=== PATIENT | female | born 1935 | race Caucasian/White ===

== ENCOUNTER → 2017-02-26 | Outpatient (CLI) | payer MEDICARE ==
--- NOTE | 2017-02-26 10:29 | CT ---
EXAMINATION TYPE: CT brain wo con DATE OF EXAM: 02/26/2017 10:00 AM HISTORY: TIA per order. Weakness and shakiness in voice. CT DLP: 1017.9 mGycm. Automated Exposure Control for Dose Reduction was Utilized. TECHNIQUE: CT scan of the head is performed without contrast. COMPARISON: None. FINDINGS: There is no acute intracranial hemorrhage or midline shift identified. There is diffuse v entricular and sulcal prominence consistent with diffuse age-related cerebral atrophy. There is low- attenuation in the periventricular white matter consistent with chronic small vessel ischemic change. Hyperostosis frontalis is present. There is some vascular calcification of distal internal carotid arteries bilaterally. The globes are intact and the visualized sinuses are clear. IMPRESSION: No acute intracranial hemorrhage or midline shift. There is mild to moderate diffuse ag e-related cerebral atrophy and chronic small vessel ischemic change noted.
== END | disposition home or self-care (01) ==
LOC: RADCTMAIN 09:29
PROVIDERS: ATTEND Family Medicine
DX: G31.9 Degenerative disease of nervous system, unspecified (principal); I67.82 Cerebral ischemia
CPT/HCPCS: 70450

== ENCOUNTER 2017-04-15 08:38 | Emergency (ER) | payer MEDICARE ==
[2017-04-15 09:01] VITALS: BP 161/70; TEMP 97.6
[2017-04-15] MEDS ORDERED: diphenhydrAMINE 25 MG CAP PO STA (09:11)
[2017-04-15] MEDS ORDERED: HYDROCORTISONE 1% CREAM 30 GM TUBE TOPICAL STA (09:11)
--- NOTE | 2017-04-15 09:19 | ED ---
General Adult HPI - General Chief complaint: Skin/Abscess/Foreign Body Stated complaint: bug bite Time Seen by Provider: 04/15/17 08:55 Source: patient, RN notes reviewed Mode of arrival: wheelchair Limitations: no limitations - History of Present Illness Initial comments: She is an 81-year-old female who presents emergency room today with a chief complaint of bug bite to the left foot. She states she felt something bite her and she did have some irritation to the top of the foot. States it is a little swollen. States it's a "throbbing" type pain. She denies any other complaints. States she did not take any medications for this. Patient denies any recent fever, chills, shortness of breath, chest pain, back pain, abdominal pain, nausea or vomiting, numbness or tingling, dysuria or hematuria, constipation or diarrhea, headaches or visual changes, or any other complaints. - Related Data Home Medications Medication Instructions Recorded Confirmed Losartan Potassium [Cozaar] 50 mg PO DAILY@1600 04/15/17 04/15/17 Lovastatin [Mevacor] 40 mg PO HS@2200 04/15/17 04/15/17 glipiZIDE [Glipizide] 10 mg PO DAILY@0800 04/15/17 04/15/17 metFORMIN HCL [Metformin HCl] 500 mg PO BID@1200,2000 04/15/17 04/15/17 Previous Rx's Medication Instructions Recorded Hydrocortisone Cream 1 applic TOPICAL TID #1 cream..g. 04/15/17 [Hydrocortisone 1% Cream] Allergies Allergy/AdvReac Type Severity Reaction Status Date / Time Sulfa (Sulfonamide Allergy Rash/Hives Verified 04/15/17 09:07 Antibiotics) Review of Systems ROS Statement: Those systems with pertinent positive or pertinent negative responses have been documented in the HPI. ROS Other: All systems not noted in ROS Statement are negative. Past Medical History Past Medical History: Diabetes Mellitus Additional Past Medical History / Comment(s): TB in 1955 History of Any Multi-Drug Resistant Organisms: None Reported Additional Past Surgical History / Comment(s): Lung Past Psychological History: No Psychological Hx Reported Smoking Status: Former smoker Past Alcohol Use History: Rare Past Drug Use History: None Reported General Exam - General Exam Comments Initial Comments: General: The patient is awake and alert, in no distress, and does not appear acutely ill. Eye: Pupils are equal, round and reactive to light, extra-ocular movements are intact. No nystagmus. There is normal conjunctiva bilaterally. No signs of icterus. Ears, nose, mouth and throat: There are moist mucous membranes and no oral lesions. Neck: The neck is supple, there is no tenderness or JVD. Cardiovascular: There is a regular rate and rhythm. No murmur, rub or gallop is appreciated. Respiratory: Lungs are clear to auscultation, respirations are non-labored, breath sounds are equal. No wheezes, stridor, rales, or rhonchi. Musculoskeletal: Normal ROM, no tenderness. Strength 5/5. Sensation intact. Pulses equal bilaterally 2+. Neurological: A&O x 3. CN II-XII intact, There are no obvious motor or sensory deficits. Coordination appears grossly intact. Speech is normal. Skin: He does have some mild redness irritation to the top of the right foot there is no lymphogenic streaking. Psychiatric: Cooperative, appropriate mood & affect, normal judgment. Limitations: no limitations Course Vital Signs 04/15/17 04/15/17 08:45 09:00 Temperature 97.2 F L 97.6 F Pulse Rate 88 85 Respiratory 16 16 Rate Blood Pressure 148/65 161/70 O2 Sat by Pulse 96 97 Oximetry Medical Decision Making - Medical Decision Making Patient given Benadryl and cortisone cream here in emergency room. Sign symptoms of concern and return were discussed with the patient. Advised continue Benadryl hydrocortisone cream at home. Advised return for any increase or worsening symptoms. Disposition Clinical Impression: Insect bite Disposition: HOME SELF-CARE Condition: Good Instructions: Insect Bite or Sting (ED) Additional Instructions: Please continue use topical steroid 3 times daily to the area along with Benadryl one to 2 tabs to 6 hours as discussed. Please return to emergency room there is increased redness or pain. Return for any other concerns. Prescriptions: Hydrocortisone Cream [Hydrocortisone 1% Cream] 1 applic TOPICAL TID #1 cream..g. Referrals: Ja Stevenson DO [Primary Care Provider] - 1-2 days Time of Disposition: 09:17
[2017-04-15 09:31] VITALS: PULSE 86; RESP 18
== END 2017-04-15 09:31 | disposition home or self-care (01) ==
LOC: EC 08:38
DX: S90.861A Insect bite (nonvenomous), right foot, initial encounter (principal); E11.9 Type 2 diabetes mellitus without complications; Z87.891 Personal history of nicotine dependence; Z79.84 Long term (current) use of oral hypoglycemic drugs; Z79.899 Other long term (current) drug therapy; Z88.2 Allergy status to sulfonamides; W57.XXXA Bitten or stung by nonvenomous insect and other nonvenomous arthropods, initial encounter
CPT/HCPCS: 99281

== ENCOUNTER 2021-05-01 11:28 | Inpatient (IN) | payer MEDICARE ==
[2021-05-01] MEDS ORDERED: SODIUM CHLORIDE 0.9% 1,000 ML IV STA ×2 (11:58→14:58)
[2021-05-01] MEDS ORDERED: ACETAMINOPHEN TAB 325 MG TAB PO STA (11:59)
--- NOTE | 2021-05-01 12:04 | ED ---
General Adult HPI - General Chief complaint: Fall Stated complaint: hyperglycemia Time Seen by Provider: 05/01/21 11:32 Source: patient, EMS, RN notes reviewed Mode of arrival: EMS - History of Present Illness Initial comments: 85-year-old female with a past medical history as diabetes mellitus presents to the emergency room for chief complaint of fall. Patient states that she had diarrhea for the past week or so and has been very weak. Patient reports that she had diarrhea today while in bed and got up to use the shower. Getting out of the shower patient slipped and fell and was stuck between the toilet and the shower. She could not get up and was there for approximately 3 hours. Family tried to call her and get a hold of her and were unable to do so. EMS was [facility] and they helped patient up. They did find her glucose to be in the 400s which is unusual for patient. Patient's only complaint is mild bilateral hip pain from "scooting" across the floor. She reports she was able to stand on her hips momentarily but she is very weak overall. She is not insulin- dependent.Patient has no other complaints at this time including shortness of breath, chest pain, abdominal pain, nausea or vomiting, headache, or visual changes. - Related Data Home Medications Medication Instructions Recorded Confirmed glipiZIDE [Glipizide] 10 mg PO DAILY@0800 04/15/17 05/01/21 Acetaminophen Tab [Tylenol Tab] 500 mg PO Q6H 05/01/21 05/01/21 Aspirin EC [Ecotrin Low Dose] 81 mg PO DAILY PRN 05/01/21 05/01/21 Losartan Potassium [Cozaar] 25 mg PO DAILY 05/01/21 05/01/21 Lovastatin [Mevacor] 20 mg PO HS 05/01/21 05/01/21 Memantine [Namenda] 10 mg PO BID 05/01/21 05/01/21 metFORMIN HCL ER [Glucophage Xr] 500 mg PO DAILY 05/01/21 05/01/21 Allergies Allergy/AdvReac Type Severity Reaction Status Date / Time Sulfa (Sulfonamide Allergy Rash/Hives Verified 05/01/21 14:44 Antibiotics) Review of Systems ROS Statement: Those systems with pertinent positive or pertinent negative responses have been documented in the HPI. ROS Other: All systems not noted in ROS Statement are negative. Past Medical History Past Medical History: Diabetes Mellitus Additional Past Medical History / Comment(s): TB in 1955 History of Any Multi-Drug Resistant Organisms: None Reported Additional Past Surgical History / Comment(s): Lung Past Psychological History: No Psychological Hx Reported Smoking Status: Former smoker Past Alcohol Use History: None Reported, Rare Past Drug Use History: None Reported General Exam General appearance: alert, in no apparent distress Head exam: Present: atraumatic, normocephalic, normal inspection Eye exam: Present: normal appearance, PERRL, EOMI. Absent: scleral icterus, conjunctival injection, periorbital swelling ENT exam: Present: normal exam, mucous membranes moist Neck exam: Present: normal inspection, full ROM. Absent: tenderness Respiratory exam: Present: normal lung sounds bilaterally. Absent: respiratory distress, wheezes, rales, rhonchi, stridor Cardiovascular Exam: Present: regular rate, normal rhythm, normal heart sounds. Absent: systolic murmur, diastolic murmur, rubs, gallop, clicks GI/Abdominal exam: Present: soft, normal bowel sounds. Absent: distended, tenderness, guarding, rebound, rigid Extremities exam: Present: full ROM, normal capillary refill (Capillary refill less than 2 seconds, DP pulses 2+ bilaterally) Neurological exam: Present: alert Course Vital Signs 05/01/21 05/01/21 05/01/21 11:37 12:52 14:34 Temperature 98.4 F Pulse Rate 112 H 106 H 112 H Respiratory 18 18 18 Rate Blood Pressure 128/78 111/56 94/47 O2 Sat by Pulse 95 95 96 Oximetry EKG Findings - EKG Comments: EKG Findings:: Sinus tachycardia, ventricular rate 113, CO int 154, QTc 455 Medical Decision Making - Medical Decision Making pt presents with sinus tachycardia. She did have a run of atrial fibrillation however we were unable to capture this on EKG. Patient does not have a history of this. She denies blood thinner usage. CBC was obtained which did show white count of 15. Lactic acid is normal. Patient does have acute kidney injury and an elevated creatine kinase. Troponin also elevated. Chest x-ray did show a large area of consolidation, CAT scan was recommended to rule out contusion versus consolidation. CT chest abdomen and pelvis reveals a large air of airspace consolidation left lower lobe however no traumatic injury. Sepsis confirmed at 1418. Patient was given IV antibiotics in 3 hours. She was given 30 mL/kg bolus based on her ideal body weight of 59 kg. patient received [address] and was given 1500 here in the emergency room. Blood cultures pending. Patient given IV antibiotics. Pulmonology consulted. Cardiology will be consulted given elevated troponin and brief episode of atrial fibrillation. She was not heparinized given recent trauma. I did speak Heather [employer] of Dr. Stevenson in the office at 3 PM. She recommended I talk with Hugh Gallardo for admission but then speak with [facility] as they will be covering at 4 PM. I was unable to get ahold of Obie but did talk with Dr. Malone and he is aware of admission. He is aware admission will be under Dr. Stevenson's name and he will see patient. - Lab Data Result diagrams: 05/01/21 12:18 05/01/21 12:18 Lab Results 05/01/21 05/01/21 05/01/21 Range/Units 12:13 12:18 12:18 WBC 15.3 H (3.8-10.6) k/uL RBC 3.44 L (3.80-5.40) m/uL Hgb 10.9 L (11.4-16.0) gm/dL Hct 32.8 L (34.0-46.0) % MCV 95.6 (80.0-100.0) fL MCH 31.8 (25.0-35.0) pg MCHC 33.2 (31.0-37.0) g/dL RDW 13.1 (11.5-15.5) % Plt Count 180 (150-450) k/uL MPV 8.8 Neutrophils % 90 % Lymphocytes % 4 % Monocytes % 4 % Eosinophils % 0 % Basophils % 0 % Neutrophils # 13.9 H (1.3-7.7) k/uL Lymphocytes # 0.7 L (1.0-4.8) k/uL Monocytes # 0.7 (0-1.0) k/uL Eosinophils # 0.0 (0-0.7) k/uL Basophils # 0.0 (0-0.2) k/uL PT 10.6 (9.0-12.0) sec INR 1.0 (<1.2) APTT 22.4 (22.0-30.0) sec Sodium (137-145) mmol/L Potassium (3.5-5.1) mmol/L Chloride (98-107) mmol/L Carbon Dioxide (22-30) mmol/L Anion Gap mmol/L BUN (7-17) mg/dL Creatinine (0.52-1.04) mg/dL Est GFR (CKD-EPI)AfAm (>60 ml/min/1.73 sqM) Est GFR (CKD-EPI)NonAf (>60 ml/min/1.73 sqM) Glucose (74-99) mg/dL POC Glucose (mg/dL) 334 H (75-99) mg/dL POC Glu Psychiatry Physician ID Giuliana Felix Plasma Lactic Acid Ronny (0.7-2.0) mmol/L Calcium (8.4-10.2) mg/dL Magnesium (1.6-2.3) mg/dL Total Bilirubin (0.2-1.3) mg/dL AST (14-36) U/L ALT (4-34) U/L Alkaline Phosphatase (38-126) U/L Creatine Kinase (30-135) U/L Troponin I (0.000-0.034) ng/mL Total Protein (6.3-8.2) g/dL Albumin (3.5-5.0) g/dL Urine Color Urine Appearance (Clear) Urine pH (5.0-8.0) Ur Specific Townsend (1.001-1.035) Urine Protein (Negative) Urine Glucose (UA) (Negative) Urine Ketones (Negative) Urine Blood (Negative) Urine Nitrite (Negative) Urine Bilirubin (Negative) Urine Urobilinogen (<2.0) mg/dL Ur Leukocyte Esterase (Negative) Urine RBC (0-5) /hpf Urine WBC (0-5) /hpf Ur Squamous Epith Cells (0-4) /hpf Amorphous Sediment (None) /hpf Blood Type Recheck Bld Type Recheck Status Spec Expiration Date 05/01/21 05/01/21 05/01/21 Range/Units 12:18 12:18 12:18 WBC (3.8-10.6) k/uL RBC (3.80-5.40) m/uL Hgb (11.4-16.0) gm/dL Hct (34.0-46.0) % MCV (80.0-100.0) fL MCH (25.0-35.0) pg MCHC (31.0-37.0) g/dL RDW (11.5-15.5) % Plt Count (150-450) k/uL MPV Neutrophils % % Lymphocytes % % Monocytes % % Eosinophils % % Basophils % % Neutrophils # (1.3-7.7) k/uL Lymphocytes # (1.0-4.8) k/uL Monocytes # (0-1.0) k/uL Eosinophils # (0-0.7) k/uL Basophils # (0-0.2) k/uL PT (9.0-12.0) sec INR (<1.2) APTT (22.0-30.0) sec Sodium 137 (137-145) mmol/L Potassium 4.1 (3.5-5.1) mmol/L Chloride 104 (98-107) mmol/L Carbon Dioxide 18 L (22-30) mmol/L Anion Gap 15 mmol/L BUN 60 H (7-17) mg/dL Creatinine 2.37 H (0.52-1.04) mg/dL Est GFR (CKD-EPI)AfAm 21 (>60 ml/min/1.73 sqM) Est GFR (CKD-EPI)NonAf 18 (>60 ml/min/1.73 sqM) Glucose 352 H (74-99) mg/dL POC Glucose (mg/dL) (75-99) mg/dL POC Glu Psychiatry Physician ID Plasma Lactic Acid Ronny 1.8 (0.7-2.0) mmol/L Calcium 8.8 (8.4-10.2) mg/dL Magnesium 1.7 (1.6-2.3) mg/dL Total Bilirubin 0.6 (0.2-1.3) mg/dL AST 65 H (14-36) U/L ALT 28 (4-34) U/L Alkaline Phosphatase 86 (38-126) U/L Creatine Kinase 3081 H* (30-135) U/L Troponin I 0.225 H* (0.000-0.034) ng/mL Total Protein 5.6 L (6.3-8.2) g/dL Albumin 3.2 L (3.5-5.0) g/dL Urine Color Urine Appearance (Clear) Urine pH (5.0-8.0) Ur Specific [place]send (1.001-1.035) Urine Protein (Negative) Urine Glucose (UA) (Negative) Urine Ketones (Negative) Urine Blood (Negative) Urine Nitrite (Negative) Urine Bilirubin (Negative) Urine Urobilinogen (<2.0) mg/dL Ur Leukocyte Esterase (Negative) Urine RBC (0-5) /hpf Urine WBC (0-5) /hpf Ur Squamous Epith Cells (0-4) /hpf Amorphous Sediment (None) /hpf Blood Type Recheck Bld Type Recheck Status Spec Expiration Date 05/01/21 05/01/21 Range/Units 14:40 14:40 WBC (3.8-10.6) k/uL RBC (3.80-5.40) m/uL Hgb (11.4-16.0) gm/dL Hct (34.0-46.0) % MCV (80.0-100.0) fL MCH (25.0-35.0) pg MCHC (31.0-37.0) g/dL RDW (11.5-15.5) % Plt Count (150-450) k/uL MPV Neutrophils % % Lymphocytes % % Monocytes % % Eosinophils % % Basophils % % Neutrophils # (1.3-7.7) k/uL Lymphocytes # (1.0-4.8) k/uL Monocytes # (0-1.0) k/uL Eosinophils # (0-0.7) k/uL Basophils # (0-0.2) k/uL PT (9.0-12.0) sec INR (<1.2) APTT (22.0-30.0) sec Sodium (137-145) mmol/L Potassium (3.5-5.1) mmol/L Chloride (98-107) mmol/L Carbon Dioxide (22-30) mmol/L Anion Gap mmol/L BUN (7-17) mg/dL Creatinine (0.52-1.04) mg/dL Est GFR (CKD-EPI)AfAm (>60 ml/min/1.73 sqM) Est GFR (CKD-EPI)NonAf (>60 ml/min/1.73 sqM) Glucose (74-99) mg/dL POC Glucose (mg/dL) (75-99) mg/dL POC Glu Psychiatry Physician ID Plasma Lactic Acid Ronny (0.7-2.0) mmol/L Calcium (8.4-10.2) mg/dL Magnesium (1.6-2.3) mg/dL Total Bilirubin (0.2-1.3) mg/dL AST (14-36) U/L ALT (4-34) U/L Alkaline Phosphatase (38-126) U/L Creatine Kinase (30-135) U/L Troponin I (0.000-0.034) ng/mL Total Protein (6.3-8.2) g/dL Albumin (3.5-5.0) g/dL Urine Color Yellow Urine Appearance Turbid H (Clear) Urine pH 5.0 (5.0-8.0) Ur Specific [place]send 1.019 (1.001-1.035) Urine Protein 1+ H (Negative) Urine Glucose (UA) Trace H (Negative) Urine Ketones Negative (Negative) Urine Blood Small H (Negative) Urine Nitrite Negative (Negative) Urine Bilirubin 1+ H (Negative) Urine Urobilinogen <2.0 (<2.0) mg/dL Ur Leukocyte Esterase Negative (Negative) Urine RBC 2 (0-5) /hpf Urine WBC 3 (0-5) /hpf Ur Squamous Epith Cells <1 (0-4) /hpf Amorphous Sediment Moderate H (None) /hpf Blood Type Recheck No Previous Record Bld Type Recheck Status CABO Indicated Spec Expiration Date 05/04/20212339 Disposition Clinical Impression: Pneumonia, Elevated troponin, Fall, Weakness, Elevated creatine kinase, Hy perglycemia, JOSÉ LUIS (acute kidney injury), Leukocytosis Disposition: ADMITTED IP TO THIS HOSP Is patient prescribed a controlled substance at d/c from ED?: No Time of Disposition: 15:02
[2021-05-01 12:14] LABS: Glucose,Whole Blood 334 mg/dL (75-99)
[2021-05-01 12:38] LABS: Basophils % (A) 0 %; Eosinophils % (A) 0 %; HCT 32.8 % (34.0-46.0); HGB 10.9 gm/dL (11.4-16.0); Lymphocytes # (A) 0.7 k/uL (1.0-4.8); Lymphocytes % (A) 4 %; MCH 31.8 pg (25.0-35.0); MCHC 33.2 g/dL (31.0-37.0); MCV 95.6 fL (80.0-100.0); Mean Platelet Volume 8.8; Monocytes # (A) 0.7 k/uL (0-1.0); Monocytes % (A) 4 %; Neutrophils # (A) 13.9 k/uL (1.3-7.7); Neutrophils % (A) 90 %; Platelet Count 180 k/uL (150-450); RBC 3.44 m/uL (3.80-5.40); RDW 13.1 % (11.5-15.5); WBC 15.3 k/uL (3.8-10.6)
--- NOTE | 2021-05-01 12:42 | CT ---
EXAMINATION TYPE: CT brain mg marshall DATE OF EXAM: 05/01/2021 COMPARISON: 02/26/2017 HISTORY: Fall, pinned between shower and toilet for [address] DLP: 1443.[address] of the brain was performed. The ventricles, basal cisterns and sulci overlying the cerebral convexities demonstrate mild enlargem ent. There is no evidence for intracranial hemorrhage or sulcal effacement. There is decreased attenuatio n about the periventricular white matter and deep white matter of both cerebral hemispheres, compatib le with chronic small vessel ischemia. No mass effects are seen. If symptoms persist consider MRI. Osseous calvarium is intact. IMPRESSION: 1. Age related atrophic and chronic small vessel ischemic change without acute intracranial process seen at this time. CT Cervical Spine: Unenhanced CT of the cervical spine was performed with bone and soft tissue window settings submitted . Coronal and sagittal reconstruction is obtained. There is normal alignment and prevertebral soft tissues. No evidence for acute cervical fracture . Scattered degenerative disc disease and spondylosis. Biapical scarring. IMPRESSION: 1. No evidence for acute fracture or subluxation of the cervical spine.
[2021-05-01 12:46] LABS: Partial Thromboplastin Time 22.4 sec (22.0-30.0); Prothrombin Time 10.6 sec (9.0-12.0)
[2021-05-01 12:54] LABS: Albumin 3.2 g/dL (3.5-5.0); Potassium 4.1 mmol/L (3.5-5.1); Total Protein 5.6 g/dL (6.3-8.2)
[2021-05-01 12:55] LABS: Calcium 8.8 mg/dL (8.4-10.2); Magnesium 1.7 mg/dL (1.6-2.3); Total Bilirubin 0.6 mg/dL (0.2-1.3)
--- NOTE | 2021-05-01 13:20 | XR ---
EXAMINATION TYPE: XR chest 2V DATE OF EXAM: 05/01/2021 COMPARISON: NONE TECHNIQUE: PA and lateral views submitted. HISTORY: Pain FINDINGS: Large area of consolidation involving the left lung. Annular calcification small pleural effusion. Ar thropathy of the shoulders greater on the left. No sizable pneumothorax. Hypertrophic and degenerativ e change of the spine. Atherosclerotic change aorta. IMPRESSION: 1. Diffuse left-sided areas of infiltrate in the setting of trauma could be on the basis of pulmonary contusion correlate to exclude pneumonia or asymmetric edema. Consider CT scan chest.
--- NOTE | 2021-05-01 13:24 | XR ---
EXAMINATION TYPE: XR pelvis AP view DATE OF EXAM: 05/01/2021 CLINICAL HISTORY: 85-year-old female with fall TECHNIQUE: A single AP view of the pelvis is obtained. COMPARISON: None. FINDINGS: No fracture of the pelvis on this single view. There are significant degenerative changes o f the left hip with joint space narrowing and subchondral sclerosis suggestive of moderate to severe osteoporosis. Moderate right hip osteoarthritis. Degenerative changes of the lower lumbar spine. Dege nerative narrowing of the pubic symphysis. IMPRESSION: 1. No evidence of fracture or dislocation of the pelvis on this single view. Degenerative changes of the bilateral hips, left greater than right.
--- NOTE | 2021-05-01 14:25 | CT ---
EXAMINATION TYPE: CT ChestAbdPelvis wo con DATE OF EXAM: 05/01/2021 COMPARISON: None HISTORY: Fall, pinned between shower and toilet for [address] DLP: 1162.[address] of the chest abdomen and pelvis was performed. The lack of contrast limits evaluation o f the solid and hollow abdominal viscera. Chest: LUNGS: There is no evidence for pneumothorax. Large area of left lower lobe consolidation. Correlate for pneumonia and/or aspiration. No pleural effusion MEDIASTINUM: Thoracic aorta is of normal caliber without CT evidence to suggest traumatic induced ao rtic injury. No mediastinal fluid or blood. No pericardial fluid or cardia abnormality. HILAR STRUCTURES: No evidence for mass. No hilar adenopathy is appreciated. OTHER: No significant abnormality. OSSEOUS: No displaced osseous fractures identified. CT ABDOMEN AND PELVIS FINDINGS: LIVER/GB: No focal laceration, contusion or subcapsular hemorrhage. No calcified gallstones. No s pace occupying hepatic lesion. Biliary tree is of normal caliber. PANCREAS: No evidence for transection. No inflammation. No distinct mass. SPLEEN: No focal laceration, contusion or subcapsular hemorrhage. ADRENALS: No hemorrhage. No nodule. No thickening. KIDNEYS/BLADDER: No focal laceration, contusion or subcapsular hemorrhage. No hydronephrosis. No n ephrolithiasis. No disctinct renal mass. BOWEL: Bowel is intact. No evidence for pneumoperitoneum. GENITAL ORGANS: No gross abnormality. LYMPH NODES: No greater than 1cm abdominal or pelvic lymph nodes areappreciated. AORTA: No traumatic aortic injury visualized. OSSEOUS STRUCTURES: No displaced fracture seen. OTHER: No evidence for hemoperitoneum. IMPRESSION: 1. No evidence for traumatic injury to the chest. 2. No evidence for traumatic injury to the abdomen or pelvis. 3. Large area of airspace consolidation left lower lobe.
[2021-05-01 15:04] LABS: Amorphous Sediment,Urine Moderate /hpf; Appearance,Urine Turbid (Clear); Bilirubin,Urine 1+ (Negative); Blood,Urine Small (Negative); Color,Urine Yellow; Glucose,Urine (UA) Trace (Negative); Ketones,Urine Negative (Negative); Leukocyte Esterase,Urine Negative (Negative); Nitrite,Urine Negative (Negative); Protein,Urine 1+ (Negative); RBC,Urine 2 /hpf (0-5); Specific Gravity,Urine 1.019 (1.001-1.035); Squamous Epithelial Cell,Urine <1 /hpf (0-4); Urobilinogen,Urine <2.0 mg/dL (<2.0); WBC,Urine 3 /hpf (0-5)
[2021-05-01] MEDS ORDERED: PIPERACILLIN-TAZOBACTAM 3.375 GM in SODIUM CHLORIDE 0.9% 100 ML IVPB STA (15:04)
[2021-05-01] MEDS ORDERED: AZITHROMYCIN 500 MG in SODIUM CHLORIDE 0.9% 250 ML IVPB STA (15:04)
[2021-05-01] MEDS ORDERED: PNEUMONIA PROTOCOL UTILIZED 1 EACH MISC PO PRN (15:04)
[2021-05-01] MEDS: SODIUM CHLORIDE 0.9% 1,000 ML IV SCH ×2 (15:30→22:42)
[2021-05-01 16:40] LABS: Glucose,Whole Blood 343 mg/dL (75-99)
[2021-05-01] MEDS: INSULIN ASPART (NovoLOG) 100 UNIT/ML VIAL SQ SCH ×2 (17:41→21:03)
[2021-05-01] MEDS ORDERED: FUROSEMIDE 10 MG/ML 4 ML VIAL ONE (19:21)
[2021-05-01 20:25] LABS: Glucose,Whole Blood 315 mg/dL (75-99)
[2021-05-01] MEDS ORDERED: ALPRAZolam 0.25 MG TAB PO STA (21:10)
[2021-05-01] MEDS ORDERED: ASPIRIN 81 MG PO PRN (23:15)
--- NOTE | 2021-05-01 23:52 | P.HPIM ---
History of Present Illness H&P Date: 05/01/21 Chief Complaint: Fall Patient is a 85-year-old female with a known history of diabetes type 2, mild cognitive impairment was brought to the hospital by EMS. Patient states that she had a fall at her home' She woke up in the morning and went to the shower. While getting out of the shower she and fell and struck in between the toilet and shower. She laid the for about couple hours. Finally she was able to call her family, who called EMS and was brought to the hospital. Patient was found to have blood sugar in 400s which is unusual for her. She has been having gener alized weakness. Patient also states that she did have diarrhea for the past week 1-2 episodes. Patient lives by herself at home. No complaints of chest pain or shortness of breath. No nausea vomiting abdominal pain or diarrhea. No headache or dizziness lightheadedness. No fever no chills. Denies any recent illnesses. On admission patient was tachycardic with heart rate 112, blood pressure 128/78 pulse ox 98% on room air and patient has been afebrile. CT head and cervical spine showed age-related atrophic and chronic small vessel ischemic changes without any acute intracranial process. CT of the cervical spine showed no evidence of acute fracture or subluxation of the cervical spine. Pelvic x-ray showed no evidence of fracture. Degenerative changes of the bilateral hips left greater than right. Chest x-ray showed diffuse left-sided areas of infiltrate in the setting of trauma could be on the basis of pulmonary contusion correlate to exclude pneumonia asymmetric edema. CT of the abdomen pelvis and chest showed large area of airspace consolidation left lower lobe. EKG showed sinus tachycardia with occasional PVCs. Laboratory data showed WBC 15.3, hemoglobin 10.9 and platelets 180 sodium 137 potassium 4.1 BUN 16 creatinine 2.37 blood sugar is 352 CK 3081 and troponin 0 0.225 and urinalysis is negative for infection. Review of Systems Constitutional: Patient denies any fever or chills . generalized weakness . Abdomen: Patient denied nausea vomiting, abdominal pain.+ diarhhea Cardiovascular: Patient denies any chest pain or short of breath no palpitations. Respiratory: patient denied any cough or sputum production. No shortness of breath Neurologic: Patient denied any numbness or tingling headache. Musculoskeletal: Patient denies any complaints of joint swelling or deformity. Skin: Negative Psychiatric: Negative Endocrine: No heat or cold intolerance. No recent weight gain. Genitourinary: No dysuria or hematuria. All other 14 point ROS negative except the above Past Medical History Past Medical History: Diabetes Mellitus Additional Past Medical History / Comment(s): TB in 1955 History of Any Multi-Drug Resistant Organisms: None Reported Past Surgical History: Hysterectomy Additional Past Surgical History / Comment(s): Lung Past Anesthesia/Blood Transfusion Reactions: No Reported Reaction Past Psychological History: No Psychological Hx Reported Smoking Status: Former smoker Past Alcohol Use History: None Reported, Rare Past Drug Use History: None Reported Medications and Allergies Home Medications Medication Instructions Recorded Confirmed Type glipiZIDE [Glipizide] 10 mg PO DAILY@0800 04/15/17 05/01/21 History Acetaminophen Tab [Tylenol Tab] 500 mg PO Q6H 05/01/21 05/01/21 History Aspirin EC [Ecotrin Low Dose] 81 mg PO DAILY PRN 05/01/21 05/01/21 History Losartan Potassium [Cozaar] 25 mg PO DAILY 05/01/21 05/01/21 History Lovastatin [Mevacor] 20 mg PO HS 05/01/21 05/01/21 History Memantine [Namenda] 10 mg PO BID 05/01/21 05/01/21 History metFORMIN HCL ER [Glucophage Xr] 500 mg PO DAILY 05/01/21 05/01/21 History Allergies Allergy/AdvReac Type Severity Reaction Status Date / Time Sulfa (Sulfonamide Allergy Rash/Hives Verified 05/01/21 14:44 Antibiotics) Physical Exam Vitals: Vital Signs Temp Pulse Pulse Resp BP BP Pulse Ox 05/01/21 18:21 98 95 05/01/21 18:06 98 F 84 16 110/52 05/01/21 15:31 102 H 18 103/44 97 05/01/21 14:34 112 H 18 94/47 96 05/01/21 12:52 106 H 18 111/56 95 05/01/21 11:37 98.4 F 112 H 18 128/78 95 Intake and Output 05/01/21 05/01/21 05/01/21 06:59 14:59 22:59 Intake Total 500 240 Balance 500 240 Intake: IV 500 Invasive Line 1 500 Oral 240 Other: # Voids 0 Weight 90.718 kg 90.718 kg PHYSICAL EXAMINATION: Patient is lying in the bed comfortably, no acute distress, awake alert and oriented.. HEENT: Normocephalic. Neck is supple. Pupils reactive. Nostrils clear. Oral cavity is moist. Neck reveals no JVD, carotid bruits, or thyromegaly. CHEST EXAMINATION: Trachea is central. Symmetrical expansion. Bibasilar diminished sounds. No wheezing or rhonchi.. CARDIAC: Normal S1, S2 with no gallops. No murmurs ABDOMEN: Soft. Bowel sounds normal. No organomegaly. No abdominal bruits. Extremities: reveal no edema. No clubbing or cyanosis Neurologically awake, alert, oriented x3 with well-coordinated movements. No focal deficits noted Skin: No rash or skin lesions. Psychiatric: Coperative. Nonsuicidal Musculoskeletal: No joint swelling or deformity. Normal range of motion. Results CBC & Chem 7: 05/01/21 12:18 05/01/21 12:18 Labs: Abnormal Lab Results - Last 24 Hours (Table) 05/01/21 05/01/21 05/01/21 Range/Units 12:13 12:18 12:18 WBC 15.3 H (3.8-10.6) k/uL RBC 3.44 L (3.80-5.40) m/uL Hgb 10.9 L (11.4-16.0) gm/dL Hct 32.8 L (34.0-46.0) % Neutrophils # 13.9 H (1.3-7.7) k/uL Lymphocytes # 0.7 L (1.0-4.8) k/uL Carbon Dioxide 18 L (22-30) mmol/L BUN 60 H (7-17) mg/dL Creatinine 2.37 H (0.52-1.04) mg/dL Glucose 352 H (74-99) mg/dL POC Glucose (mg/dL) 334 H (75-99) mg/dL AST 65 H (14-36) U/L Creatine Kinase 3081 H* (30-135) U/L Troponin I (0.000-0.034) ng/mL Total Protein 5.6 L (6.3-8.2) g/dL Albumin 3.2 L (3.5-5.0) g/dL Urine Appearance (Clear) Urine Protein (Negative) Urine Glucose (UA) (Negative) Urine Blood (Negative) Urine Bilirubin (Negative) Amorphous Sediment (None) /hpf 05/01/21 05/01/21 05/01/21 Range/Units 12:18 14:40 16:08 WBC (3.8-10.6) k/uL RBC (3.80-5.40) m/uL Hgb (11.4-16.0) gm/dL Hct (34.0-46.0) % Neutrophils # (1.3-7.7) k/uL Lymphocytes # (1.0-4.8) k/uL Carbon Dioxide (22-30) mmol/L BUN (7-17) mg/dL Creatinine (0.52-1.04) mg/dL Glucose (74-99) mg/dL POC Glucose (mg/dL) (75-99) mg/dL AST (14-36) U/L Creatine Kinase (30-135) U/L Troponin I 0.225 H* 0.188 H* (0.000-0.034) ng/mL Total Protein (6.3-8.2) g/dL Albumin (3.5-5.0) g/dL Urine Appearance Turbid H (Clear) Urine Protein 1+ H (Negative) Urine Glucose (UA) Trace H (Negative) Urine Blood Small H (Negative) Urine Bilirubin 1+ H (Negative) Amorphous Sediment Moderate H (None) /hpf 05/01/21 05/01/21 05/01/21 Range/Units 16:38 18:50 20:24 WBC (3.8-10.6) k/uL RBC (3.80-5.40) m/uL Hgb (11.4-16.0) gm/dL Hct (34.0-46.0) % Neutrophils # (1.3-7.7) k/uL Lymphocytes # (1.0-4.8) k/uL Carbon Dioxide (22-30) mmol/L BUN (7-17) mg/dL Creatinine (0.52-1.04) mg/dL Glucose (74-99) mg/dL POC Glucose (mg/dL) 343 H 315 H (75-99) mg/dL AST (14-36) U/L Creatine Kinase (30-135) U/L Troponin I 0.132 H* (0.000-0.034) ng/mL Total Protein (6.3-8.2) g/dL Albumin (3.5-5.0) g/dL Urine Appearance (Clear) Urine Protein (Negative) Urine Glucose (UA) (Negative) Urine Blood (Negative) Urine Bilirubin (Negative) Amorphous Sediment (None) /hpf Thrombosis Risk Factor Assmnt - DVT/VTE Prophylaxis DVT/VTE Prophylaxis: Pharmacologic Prophylaxis ordered - Choose All That Apply Any of the Below Risk Factors Present?: Yes Each Factor Represents 1 point: Serious lung disease incl. pneumonia (< 1month) Other Risk Factors: Yes Each Risk Factor Represents 3 Points: Age 75 years or older Thrombosis Risk Factor Assessment Total Risk Factor Score: 4 Thrombosis Risk Factor Assessment Level: Moderate Risk Assessment and Plan Assessment: Status post mechanical fall. Patient slipped while coming out of the shower. Left lower lobe pneumonia. Possible aspiration. Sepsis secondary above Elevated troponin level. Possible type II AL.. Hyperglycemia with uncontrolled diabetes type 2. 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 Continue with insulin scale and start Levemir 15 units at bedtime and check A1c level. Cardiology and pulmonary was consulted. Continue to follow closely. Prognosis is guarded. Will consult PT OT. Time with Patient: Greater than 30
[2021-05-02] MEDS: ATORVASTATIN 10 MG TAB PO SCH ×2 (00:05→20:42)
[2021-05-02] MEDS: INSULIN DETEMIR (LEVEMIR) 100 UNIT/ML SYR SQ SCH ×2 (00:05→20:41)
[2021-05-02] MEDS: HEPARIN SODIUM,PORCINE/PF 5,000 UNIT/0.5 ML SYRINGE SQ SCH ×4 (00:05→23:10)
[2021-05-02] MEDS: PIPERACILLIN-TAZOBACTAM 3.375 GM in SODIUM CHLORIDE 0.9% 100 ML IVPB SCH ×2 (00:06→19:37)
[2021-05-02 06:20] LABS: Glucose,Whole Blood 185 mg/dL (75-99)
[2021-05-02] MEDS: SODIUM CHLORIDE 0.9% 1,000 ML IV SCH (06:30)
[2021-05-02] MEDS: INSULIN ASPART (NovoLOG) 100 UNIT/ML VIAL SQ SCH ×4 (06:32→20:41)
[2021-05-02 07:46] LABS: Basophils % (A) 0 %; Eosinophils % (A) 0 %; HCT 31.9 % (34.0-46.0); HGB 10.2 gm/dL (11.4-16.0); Hypochromasia Slight; Lymphocytes # (A) 0.7 k/uL (1.0-4.8); Lymphocytes % (A) 5 %; MCH 30.7 pg (25.0-35.0); Mean Platelet Volume 9.3; Monocytes # (A) 0.6 k/uL (0-1.0); Monocytes % (A) 4 %; Neutrophils # (A) 14.5 k/uL (1.3-7.7); Neutrophils % (A) 91 %; Platelet Count 177 k/uL (150-450); RBC 3.32 m/uL (3.80-5.40); RDW 13.1 % (11.5-15.5); WBC 15.9 k/uL (3.8-10.6)
[2021-05-02 07:53] LABS: Calcium 8.4 mg/dL (8.4-10.2); Potassium 4.2 mmol/L (3.5-5.1)
[2021-05-02] MEDS ORDERED: MEMANTINE 10 MG TAB PO SCH (09:00)
[2021-05-02 09:01] LABS: T4, Free (Free Thyroxine) 1.71 ng/dL (0.78-2.19)
[2021-05-02] MEDS: LOSARTAN 25 MG TAB PO SCH (09:06)
[2021-05-02] MEDS ORDERED: FUROSEMIDE 20 MG TAB PO STA (10:36)
--- NOTE | 2021-05-02 11:03 | P.CNPUL ---
History of Present Illness Consult date: 05/02/21 Requesting physician: Ja Stevenson Reason for consult: dyspnea, cough, hypoxemia, pneumonia, abnormal CXR/CT Chief complaint: Cough, shortness of breath, pneumonia. History of present illness: Pulmonary consult dated 05/02/2021. 85-year-old female, with a past medical history of diabetes mellitus, and hypertension, as well as hyperlipidemia, and memory impairment, who presents to the emergency department via EMS, apparently having fallen. The patient also apparently has had diarrhea for the past week or so. She's been very weak. Apparently getting out of the shower, she said felt stuck stuck between the toilet in the shower. She apparently could not get out for about 3 hours. EMS arrived at home and were able to get the patient up. Apparently her sugars are quite high. She apparently had bilateral hip pain. Today in the room, the patient complains of cough shortness of breath and difficulty breathing. She didn't mention anything about the fall in the bathroom. She denies any chest pain or pressure. She is a bit confused. She was not in any respiratory distress. Her 4 L saturation was 99%. Her temperature is 97.8, heart rate was 77, respiratory rate 20, and blood pressure 121/62. Laboratory data includes a white count 15.9, hemoglobin 10.2, hematocrit 31.9, and a normal platelet count. Sodium 138, potassium 4.2, chlorides 108, CO2 18, anion gap 12, BUN 73, and creatinine 2. CK was 1190. Troponin was 0.132. Chest x-ray showed an extensive left-sided pneumonia. Review of Systems REVIEW OF SYSTEMS: CONSTITUTIONAL: Weakness. NEUROLOGIC: [ Negative.] HEENT: [ Negative.] CARDIAC: [Negative.] PULMONARY: Shortness of breath, cough, chest congestion. GI: Diarrhea. : [Negative.] RHEUMATOLOGIC: [ Negative.] IMMUNOLOGIC: [ Negative.] ENDOCRINE: [Negative. ] DERMATOLOGIC: [Negative.] Past Medical History Past Medical History: Diabetes Mellitus Additional Past Medical History / Comment(s): TB in 1955 History of Any Multi-Drug Resistant Organisms: None Reported Past Surgical History: Hysterectomy Additional Past Surgical History / Comment(s): Lung Past Anesthesia/Blood Transfusion Reactions: No Reported Reaction Past Psychological History: No Psychological Hx Reported Smoking Status: Former smoker Past Alcohol Use History: None Reported, Rare Past Drug Use History: None Reported Medications and Allergies Home Medications Medication Instructions Recorded Confirmed Type glipiZIDE [Glipizide] 10 mg PO DAILY@0800 04/15/17 05/01/21 History Acetaminophen Tab [Tylenol Tab] 500 mg PO Q6H 05/01/21 05/01/21 History Aspirin EC [Ecotrin Low Dose] 81 mg PO DAILY PRN 05/01/21 05/01/21 History Losartan Potassium [Cozaar] 25 mg PO DAILY 05/01/21 05/01/21 History Lovastatin [Mevacor] 20 mg PO HS 05/01/21 05/01/21 History Memantine [Namenda] 10 mg PO BID 05/01/21 05/01/21 History metFORMIN HCL ER [Glucophage Xr] 500 mg PO DAILY 05/01/21 05/01/21 History Allergies Allergy/AdvReac Type Severity Reaction Status Date / Time Sulfa (Sulfonamide Allergy Rash/Hives Verified 05/01/21 14:44 Antibiotics) Physical Exam Osteopathic Statement: *. No significant issues noted on an osteopathic structural exam other than those noted in the History and Physical/Consult. Vitals: Vital Signs Temp Pulse Pulse Resp BP BP Pulse Ox 05/02/21 09:11 99 05/02/21 09:05 97.8 F 77 20 89/59 98 05/02/21 04:00 98.4 F 110 H 20 121/62 95 05/02/21 02:00 20 05/02/21 00:00 98.1 F 107 H 20 117/54 95 05/01/21 20:00 98.0 F 105 H 30 H 104/55 94 L 05/01/21 18:21 98 95 05/01/21 18:06 98 F 84 16 110/52 05/01/21 15:31 102 H 18 103/44 97 05/01/21 14:34 112 H 18 94/47 96 05/01/21 12:52 106 H 18 111/56 95 05/01/21 11:37 98.4 F 112 H 18 128/78 95 Intake and Output 05/01/21 05/02/21 05/02/21 22:59 06:59 14:59 Intake Total 250 240 Output Total 400 800 Balance -150 -800 240 Intake: IV 10 Invasive Line 1 10 Oral 240 240 Output: Urine 400 800 Uretheral (Harding) 400 Other: Voiding Method Indwelling Catheter Indwelling Catheter # Voids 1 Weight 90.718 kg 90.3 kg No acute distress, a bit confused. Nasal O2 at 3 L is noted. HEENT examination is grossly unremarkable. Neck supple. Full range of motion. No adenopathy thyromegaly or neck vein distention. Cardiovascular examination reveals regular rhythm rate. S1-S2 normal. No S3 or S4. No discernible murmur noted. Heart sounds are distant. Heart rate 77 bpm. Lungs mild bilateral scattered rhonchi. No wheezes or crackles. Breath sounds equal. Abdomen soft bowel sounds are heard. No masses or tenderness. Extremities are intact. No cyanosis clubbing or edema. Skin is without rash or lesion. Neurologic examination is brief but nonfocal. Results - Laboratory Findings CBC and BMP: 05/02/21 06:52 05/02/21 06:52 PT/INR, D-dimer PT 10.6 sec (9.0-12.0) 05/01/21 12:18 INR 1.0 (<1.2) 05/01/21 12:18 Abnormal lab findings: Abnormal Labs 05/01/21 05/01/21 05/01/21 12:13 12:18 12:18 WBC 15.3 H RBC 3.44 L Hgb 10.9 L Hct 32.8 L Neutrophils # 13.9 H Lymphocytes # 0.7 L Chloride Carbon Dioxide 18 L BUN 60 H Creatinine 2.37 H Glucose 352 H POC Glucose (mg/dL) 334 H AST 65 H Creatine Kinase 3081 H* Troponin I Total Protein 5.6 L Albumin 3.2 L TSH Urine Appearance Urine Protein Urine Glucose (UA) Urine Blood Urine Bilirubin Amorphous Sediment 05/01/21 05/01/21 05/01/21 12:18 14:40 16:08 WBC RBC Hgb Hct Neutrophils # Lymphocytes # Chloride Carbon Dioxide BUN Creatinine Glucose POC Glucose (mg/dL) AST Creatine Kinase Troponin I 0.225 H* 0.188 H* Total Protein Albumin TSH Urine Appearance Turbid H Urine Protein 1+ H Urine Glucose (UA) Trace H Urine Blood Small H Urine Bilirubin 1+ H Amorphous Sediment Moderate H 05/01/21 05/01/21 05/01/21 16:38 18:50 20:24 WBC RBC Hgb Hct Neutrophils # Lymphocytes # Chloride Carbon Dioxide BUN Creatinine Glucose POC Glucose (mg/dL) 343 H 315 H AST Creatine Kinase Troponin I 0.132 H* Total Protein Albumin TSH Urine Appearance Urine Protein Urine Glucose (UA) Urine Blood Urine Bilirubin Amorphous Sediment 05/02/21 05/02/21 05/02/21 06:18 06:52 06:52 WBC 15.9 H RBC 3.32 L Hgb 10.2 L Hct 31.9 L Neutrophils # 14.5 H Lymphocytes # 0.7 L Chloride 108 H Carbon Dioxide 18 L BUN 73 H Creatinine 2.00 H Glucose 178 H POC Glucose (mg/dL) 185 H AST Creatine Kinase 1190 H* Troponin I Total Protein Albumin TSH 0.179 L Urine Appearance Urine Protein Urine Glucose (UA) Urine Blood Urine Bilirubin Amorphous Sediment - Diagnostic Findings Chest x-ray: image reviewed CT scan - chest: image reviewed Assessment and Plan Assessment: Community-acquired pneumonia, left lung. Status post fall. Weakness, secondary to diarrhea. History of diabetes mellitus. History of hypertension. History of hyperlipidemia. History of dementia/memory impairment. 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 Plan: Plan dated 05/02/2021. The patient is placed on Rocephin and Zithromax. She's currently on O2. We will continue to follow make recommendations were appropriate. The patient's on 3-4 L nasal cannula. Saturations are 99%. The patient is not manifesting any signs or symptoms of respiratory distress, conversational dyspnea, audible wheezing, or use of accessory muscles. Prognosis is guarded. Time with Patient: Greater than 30
[2021-05-02 11:36] LABS: Glucose,Whole Blood 186 mg/dL (75-99)
--- NOTE | 2021-05-02 12:32 | P.CRDCN ---
History of Present Illness Consult date: 05/02/21 Reason for Consult (text): Elevated troponins History of present illness: The patient is a 85-year-old female who follows in the office with Dr. Grande. We were consulted after the patient experienced a fall getting out of her shower. She states she was not dizzy or lightheaded, however she just slipped on the wet floor. She was down for approximately 2-3 hours before the patient could call for help. Her blood sugar was noted to be in the 400s by EMS. EKG on arrival showed sinus tachycardia with PACs. Troponins mildly elevated. Brittany vated CK and creatinine. She was given a 2 L bolus in the emergency room, however it was discontinued after 1-1/2 L for pulmonary distress. According to nursing staff she was giving IV Lasix at that time. The patient was interviewed and examined sitting up in bed. Mildly labored. She reports some mild shortness of breath and states she has not been up ambulating throughout the room. No chest pain or chest pressure. No edema. DIAGNOSTICS: EKG shows sinus tachycardia with occasional PVCs Chest x-ray shows diffuse left-sided infiltrate; pulmonary contusion versus pneumonia or asymmetrical edema CT of the chest, abdomen, and pelvis shows no evidence for traumatic injury to the chest abdomen or pelvis. Large air space consolidation in left lower lobe. Pneumonia versus aspiration. Laboratory data: WBC 15.9, hemoglobin 10.2, hematocrit 31.9, platelet 177, sodium 138, potassium 4.2, BUN 73, creatinine 2.0, CK 1190, TSH 0.179, troponin 0.132 Vital signs: Blood pressure 89/59, SpO2 98% on 4 L nasal cannula, pulse rate 77, temperature 97.8F. Telemetry shows sinus rhythm with PVCs. PAST MEDICAL HISTORY: Diabetes mellitus, hypertension, dementia REVIEW OF SYSTEMS: No fever or chills. No cough or expectoration. No diaphoresis. Patient denies headache, dizziness, blurred vision, double vision. Patient denies any stomach discomfort. No nausea, vomiting. No hematochezia. No hematemesis. Denies any black stools or blood in his stools. Denies dysuria or hematuria. Positive for muscle weakness. Mild shortness of breath. No chest pain or chest pressure. The palpitations PHYSICAL EXAMINATION: This is a 85-year-old female. Mildly labored at the time of examination. HEENT: Head is atraumatic, normocephalic. Pupils are equal, round. Sclerae anicteric. Conjunctivae are clear. Mucous membranes of the mouth are moist. Neck is supple. There is no jugular venous distention. No carotid bruit is heard. CHEST EXAMINATION: Lungs diminished on the left. No chest wall tenderness is noted on palpation or with deep breathing. HEART EXAMINATION: Heart regular rate and rhythm. S1, S2 heard. Soft systolic murmur. No gallops or rub. ABDOMEN: Soft, nontender. Bowel sounds are heard. No organomegaly noted. EXTREMITIES: 2+ peripheral pulses with no evidence of peripheral edema and no calf tenderness noted. NEUROLOGIC EXAMINATION: Patient is awake, alert and oriented x3. FINAL ASSESSMENT AND PLAN: Mechanical fall, no presyncope Elevated troponins, secondary to fall Elevated CK Leukocytosis, secondary to pneumonia Community-acquired pneumonia, pulmonology following Diabetes mellitus, hyperglycemic on arrival Acute kidney injury, secondary to fall Shortness of breath, fluid overload versus pneumonia Dementia PLAN: Obtain recent echocardiogram from the office Start furosemide 20 mg by mouth to avoid hypotension Hold losartan for systolic pressures less than 100/60 Further recommendations based upon clinical course The patient has been seen and evaluated. Plan of care has been reviewed and agreed upon by Dr Shepherd. Past Medical History Past Medical History: Diabetes Mellitus Additional Past Medical History / Comment(s): TB in 195 History of Any Multi-Drug Resistant Organisms: None Reported Past Surgical History: Hysterectomy Additional Past Surgical History / Comment(s): Lung Past Anesthesia/Blood Transfusion Reactions: No Reported Reaction Past Psychological History: No Psychological Hx Reported Smoking Status: Former smoker Past Alcohol Use History: None Reported, Rare Past Drug Use History: None Reported Medications and Allergies Home Medications Medication Instructions Recorded Confirmed Type glipiZIDE [Glipizide] 10 mg PO DAILY@0800 16/17 05/01/21 History Acetaminophen Tab [Tylenol Tab] 500 mg PO Q6H 05/01/21 05/01/21 History Aspirin EC [Ecotrin Low Dose] 81 mg PO DAILY PRN 05/01/21 05/01/21 History Losartan Potassium [Cozaar] 25 mg PO DAILY 05/01/21 05/01/21 History Lovastatin [Mevacor] 20 mg PO HS 05/01/21 05/01/21 History Memantine [Namenda] 10 mg PO BID 05/01/21 05/01/21 History metFORMIN HCL ER [Glucophage Xr] 500 mg PO DAILY 05/01/21 05/01/21 History Allergies Allergy/AdvReac Type Severity Reaction Status Date / Time Sulfa (Sulfonamide Allergy Rash/Hives Verified 05/01/21 14:44 Antibiotics) Physical Exam Vitals: Vital Signs Temp Pulse Pulse Resp BP BP Pulse Ox 05/02/21 11:41 73 18 98/61 100 05/02/21 09:11 99 05/02/21 09:05 97.8 F 77 20 89/59 98 05/02/21 04:00 98.4 F 110 H 20 121/62 95 05/02/21 02:00 20 05/02/21 00:00 98.1 F 107 H 20 117/54 95 05/01/21 20:00 98.0 F 105 H 30 H 104/55 94 L 05/01/21 18:21 98 95 05/01/21 18:06 98 F 84 16 110/52 05/01/21 15:31 102 H 18 103/44 97 05/01/21 14:34 112 H 18 94/47 96 05/01/21 12:52 106 H 18 111/56 95 Intake and Output 05/01/21 05/02/21 05/02/21 22:59 06:59 14:59 Intake Total 250 240 Output Total 400 800 Balance -150 -800 240 Intake: IV 10 Invasive Line 1 10 Oral 240 240 Output: Urine 400 800 Uretheral (Harding) 400 Other: Voiding Method Indwelling Catheter Indwelling Catheter Indwelling Catheter # Voids 1 Weight 90.718 kg 90.3 kg Results 05/02/21 06:52 05/02/21 06:52 Cardiac Enzymes 05/01/21 05/01/21 05/01/21 Range/Units 12:18 12:18 16:08 AST 65 H (14-36) U/L Troponin I 0.225 H* 0.188 H* (0.000-0.034) ng/mL 05/01/21 Range/Units 18:50 AST (14-36) U/L Troponin I 0.132 H* (0.000-0.034) ng/mL Coagulation 05/01/21 Range/Units 12:18 PT 10.6 (9.0-12.0) sec APTT 22.4 (22.0-30.0) sec CBC 05/01/21 05/02/21 Range/Units 12:18 06:52 WBC 15.3 H 15.9 H (3.8-10.6) k/uL RBC 3.44 L 3.32 L (3.80-5.40) m/uL Hgb 10.9 L 10.2 L (11.4-16.0) gm/dL Hct 32.8 L 31.9 L (34.0-46.0) % Plt Count 180 177 (150-450) k/uL Comprehensive Metabolic Panel 05/01/21 05/02/21 Range/Units 12:18 06:52 Sodium 137 138 (137-145) mmol/L Potassium 4.1 4.2 (3.5-5.1) mmol/L Chloride 104 108 H (98-107) mmol/L Carbon Dioxide 18 L 18 L (22-30) mmol/L BUN 60 H 73 H (7-17) mg/dL Creatinine 2.37 H 2.00 H (0.52-1.04) mg/dL Glucose 352 H 178 H (74-99) mg/dL Calcium 8.8 8.4 (8.4-10.2) mg/dL AST 65 H (14-36) U/L ALT 28 (4-34) U/L Alkaline Phosphatase 86 (38-126) U/L Total Protein 5.6 L (6.3-8.2) g/dL Albumin 3.2 L (3.5-5.0) g/dL Current Medications Generic Name Dose Route Start Last Admin Trade Name Freq PRN Reason Stop Dose Admin Aspirin 81 mg 05/01/21 23:15 Aspirin 81 Mg PO DAILY PRN Pain Atorvastatin Calcium 10 mg 05/01/21 23:15 05/02/21 00:05 Atorvastatin 10 Mg Tab PO 10 mg HS ALTHEA Administration Heparin Sodium (Porcine) 5,000 unit 05/02/21 00:00 05/02/21 09:06 Heparin Sodium,Porcine/Pf 5,000 Unit/0.5 Ml Syringe SQ 5,000 unit Q8HR ALTHEA Administration Azithromycin 500 mg/ Sodium 250 mls @ 250 mls/hr 05/02/21 15:00 Chloride IVPB DAILY@1500 ALTHEA Ceftriaxone Sodium 1 gm/ 50 mls @ 100 mls/hr 05/02/21 09:00 05/02/21 09:06 Sodium Chloride IVPB 100 mls/hr Q24HR ALTHEA Administration Insulin Aspart 0 unit 05/01/21 17:30 05/02/21 06:32 Insulin Aspart (Novolog) 100 Unit/Ml Vial SQ 2 unit ACHS ALTHEA Administration Protocol Insulin Detemir 15 unit 05/01/21 23:30 05/02/21 00:05 Insulin Detemir (Levemir) 100 Unit/Ml Syr SQ 15 unit HS ALTHEA Administration Losartan Potassium 25 mg 05/02/21 09:00 05/02/21 09:06 Losartan 25 Mg Tab PO Not Given DAILY ALTHEA Memantine 10 mg 05/02/21 09:00 05/02/21 09:07 Memantine 10 Mg Tab PO 10 mg BID ALTHEA Administration Miscellaneous Information 1 each 05/01/21 15:04 Pneumonia Protocol Utilized 1 Each Misc PO ONCE PRN Per Protocol Intake and Output 05/01/21 05/02/21 05/02/21 22:59 06:59 14:59 Intake Total 250 240 Output Total 400 800 Balance -150 -800 240 Intake: IV 10 Invasive Line 1 10 Oral 240 240 Output: Urine 400 800 Uretheral (Harding) 400 Other: Voiding Method Indwelling Catheter Indwelling Catheter Indwelling Catheter # Voids 1 Weight 90.718 kg 90.3 kg 05/02/21 06:52 05/02/21 06:52
--- NOTE | 2021-05-02 14:00 | XR ---
EXAMINATION TYPE: XR chest 1V portable DATE OF EXAM: 05/02/2021 COMPARISON: 05/01/2021 HISTORY: Pneumonia TECHNIQUE: Single frontal view of the chest is obtained. FINDINGS: Patchy airspace disease in the left lung again demonstrated with slight improvement in the left lower lobe. Mild pulmonary edema greater on the left. No pneumothorax or pleural effusion. Cardiomediastinal silhouette within normal. Atherosclerotic calcification seen in the intrathoracic a altagracia. Generalized osteopenia with no acute osseous abnormality. IMPRESSION: Multifocal left-sided pneumonia with some improvement in the left lower lobe and mild pu lmonary edema greater on the left.
[2021-05-02 14:17] LABS: Hemoglobin A1C 7.2 % (4.0-6.0)
[2021-05-02] MEDS ORDERED: AZITHROMYCIN 500 MG in SODIUM CHLORIDE 0.9% 250 ML IVPB SCH (15:00)
[2021-05-02] MEDS ORDERED: ONDANSETRON 4 MG/2 ML VIAL IVP PRN (15:00)
[2021-05-02] MEDS: AZITHROMYCIN 500 MG TAB PO SCH (16:16)
[2021-05-02 16:43] LABS: Glucose,Whole Blood 152 mg/dL (75-99)
[2021-05-02 20:21] LABS: Glucose,Whole Blood 231 mg/dL (75-99)
[2021-05-02] MEDS: MEMANTINE 5 MG TAB PO SCH (20:42)
[2021-05-02] MEDS: FAMOTIDINE 20 MG TAB PO SCH (20:42)
[2021-05-03 06:05] LABS: Glucose,Whole Blood 159 mg/dL (75-99)
[2021-05-03] MEDS: INSULIN ASPART (NovoLOG) 100 UNIT/ML VIAL SQ SCH ×4 (06:16→19:59)
[2021-05-03 08:34] LABS: Basophils % (A) 0 %; Eosinophils # (A) 0.1 k/uL (0-0.7); Eosinophils % (A) 0 %; HCT 32.1 % (34.0-46.0); HGB 10.4 gm/dL (11.4-16.0); Hypochromasia Slight; Lymphocytes # (A) 1.1 k/uL (1.0-4.8); Lymphocytes % (A) 7 %; MCHC 32.4 g/dL (31.0-37.0); MCV 95.8 fL (80.0-100.0); Mean Platelet Volume 8.9; Monocytes # (A) 0.5 k/uL (0-1.0); Monocytes % (A) 3 %; Neutrophils # (A) 14.5 k/uL (1.3-7.7); Neutrophils % (A) 90 %; Platelet Count 191 k/uL (150-450); RBC 3.35 m/uL (3.80-5.40); RDW 13.3 % (11.5-15.5); WBC 16.3 k/uL (3.8-10.6)
[2021-05-03 08:57] LABS: Calcium 8.7 mg/dL (8.4-10.2); Potassium 3.9 mmol/L (3.5-5.1)
[2021-05-03] MEDS ORDERED: DEXTROSE 5% IN WATER 250 ML with AMIODARONE 300 MG IV ONE (09:00)
[2021-05-03] MEDS: HEPARIN SODIUM,PORCINE/PF 5,000 UNIT/0.5 ML SYRINGE SQ SCH ×3 (09:19→23:27)
[2021-05-03] MEDS: MEMANTINE 5 MG TAB PO SCH ×2 (09:19→19:59)
[2021-05-03] MEDS: LOSARTAN 25 MG TAB PO SCH (09:19)
--- NOTE | 2021-05-03 10:21 | P.PN ---
Subjective Progress Note Date: 05/02/21 Principal diagnosis: Left lower lobe pneumonia Sepsis secondary to above Elevated troponin level Patient is a 85-year-old female with a known history of diabetes type 2, mild cognitive impairment was brought to the hospital by EMS. Patient states that she had a fall at her home' She woke up in the morning and went to the shower. While getting out of the shower she and fell and struck in between the toilet and shower. She laid the for about couple hours. Finally she was able to call her family, who called EMS and was brought to the hospital. Patient was found to have blood sugar in 400s which is unusual for her. She has been having generalized weakness. Patient also states that she did have diarrhea for the past week 1-2 episodes. Patient lives by herself at home. No complaints of chest pain or shortness of breath. No nausea vomiting abdominal pain or diarrhea. No headache or dizziness lightheadedness. No fever no chills. Denies any recent illnesses. On admission patient was tachycardic with heart rate 112, blood pressure 128/78 pulse ox 98% on room air and patient has been afebrile. CT head and cervical spine showed age-related atrophic and chronic small vessel ischemic changes without any acute intracranial process. CT of the cervical spine showed no evidence of acute fracture or subluxation of the cervical spine. Pelvic x-ray showed no evidence of fracture. Degenerative changes of the bilateral hips left greater than right. Chest x-ray showed diffuse left-sided areas of infiltrate in the setting of trauma could be on the basis of pulmonary contusion correlate to exclude pneumonia asymmetric edema. CT of the abdomen pelvis and chest showed large area of airspace consolidation left lower lobe. EKG showed sinus tachycardia with occasional PVCs. Laboratory data showed WBC 15.3, hemoglobin 10.9 and platelets 180 sodium 137 potassium 4.1 BUN 16 creatinine 2.37 blood sugar is 352 CK 3081 and troponin 0 0.225 and urinalysis is negative for infection. 05/02/2021 Patient is currently resting in the bed comfortably. Overnight rapid response team was called due to shortness of breath. IV fluids were discontinued for possible fluid load. Patient was complaining of Nausea and was given a dose of Zofran and started on Pepcid. Otherwise patient is being continued on antibiotics the form of azithromycin and Zosyn was changed to ceftriaxone for committing or pneumonia. Patient was seen by cardiology. 2-D echocardiogram was ordered and was started on low-dose Lasix. Laboratory data showed WBC trending down to 15.9, hemoglobin 10.2 and platelets 177, TSH 0.179 and free T4 level is 0.71. BUN 70. Creatinine 2.0. Patient is tolerating oral diet. CPK level is trending down. IV fluids on hold. Patient has been afebrile. No abdominal pain or diarrhea. Cardiology and pulmonary is on board. Current medications reviewed. Objective - Vital Signs Vital signs: Vital Signs Temp 97.8 F 05/02/21 09:05 Pulse 54 L 05/02/21 12:48 Resp 18 05/02/21 12:48 BP 115/73 05/02/21 12:48 Pulse Ox 95 05/02/21 12:48 Intake & Output 05/01/21 05/02/21 05/02/21 18:59 06:59 18:59 Intake Total 740 10 480 Output Total 1200 175 Balance 740 -1190 305 Weight 90.718 kg 90.3 kg Intake: IV 500 10 Invasive Line 1 500 10 Oral 240 480 Output: Urine 1200 175 Uretheral (Harding) 400 Other: Voiding Method Indwelling Catheter Indwelling Catheter # Voids 0 1 - Exam PHYSICAL EXAMINATION: Patient is lying in the bed comfortably, no acute distress, awake alert and oriented.. HEENT: Normocephalic. Neck is supple. Pupils reactive. Nostrils clear. Oral cavity is moist. Neck reveals no JVD, carotid bruits, or thyromegaly. CHEST EXAMINATION: Trachea is central. Symmetrical expansion. Bibasilar diminished sounds. No wheezing or rhonchi.. CARDIAC: Normal S1, S2 with no gallops. No murmurs ABDOMEN: Soft. Bowel sounds normal. No organomegaly. No abdominal bruits. Extremities: reveal no edema. No clubbing or cyanosis Neurologically awake, alert, oriented x3 with well-coordinated movements. No focal deficits noted Skin: No rash or skin lesions. Psychiatric: Coperative. Nonsuicidal Musculoskeletal: No joint swelling or deformity. Normal range of motion. - Labs CBC & Chem 7: 05/03/21 08:20 05/03/21 08:20 Labs: Abnormal Lab Results - Last 24 Hours (Table) 0705/01/21 05/01/21 Range/Units 14:40 16:08 16:38 WBC (3.8-10.6) k/uL RBC (3.80-5.40) m/uL Hgb (11.4-16.0) gm/dL Hct (34.0-46.0) % Neutrophils # (1.3-7.7) k/uL Lymphocytes # (1.0-4.8) k/uL Chloride (98-107) mmol/L Carbon Dioxide (22-30) mmol/L BUN (7-17) mg/dL Creatinine (0.52-1.04) mg/dL Glucose (74-99) mg/dL POC Glucose (mg/dL) 343 H (75-99) mg/dL Hemoglobin A1c (4.0-6.0) % Creatine Kinase (30-135) U/L Troponin I 0.188 H* (0.000-0.034) ng/mL TSH (0.465-4.680) mIU/L Urine Appearance Turbid H (Clear) Urine Protein 1+ H (Negative) Urine Glucose (UA) Trace H (Negative) Urine Blood Small H (Negative) Urine Bilirubin 1+ H (Negative) Amorphous Sediment Moderate H (None) /hpf 05/01/21 05/01/21 05/02/21 Range/Units 18:50 20:24 06:18 WBC (3.8-10.6) k/uL RBC (3.80-5.40) m/uL Hgb (11.4-16.0) gm/dL Hct (34.0-46.0) % Neutrophils # (1.3-7.7) k/uL Lymphocytes # (1.0-4.8) k/uL Chloride (98-107) mmol/L Carbon Dioxide (22-30) mmol/L BUN (7-17) mg/dL Creatinine (0.52-1.04) mg/dL Glucose (74-99) mg/dL POC Glucose (mg/dL) 315 H 185 H (75-99) mg/dL Hemoglobin A1c (4.0-6.0) % Creatine Kinase (30-135) U/L Troponin I 0.132 H* (0.000-0.034) ng/mL TSH (0.465-4.680) mIU/L Urine Appearance (Clear) Urine Protein (Negative) Urine Glucose (UA) (Negative) Urine Blood (Negative) Urine Bilirubin (Negative) Amorphous Sediment (None) /hpf 05/02/21 05/02/21 05/02/21 Range/Units 06:52 06:52 06:52 WBC 15.9 H (3.8-10.6) k/uL RBC 3.32 L (3.80-5.40) m/uL Hgb 10.2 L (11.4-16.0) gm/dL Hct 31.9 L (34.0-46.0) % Neutrophils # 14.5 H (1.3-7.7) k/uL Lymphocytes # 0.7 L (1.0-4.8) k/uL Chloride 108 H (98-107) mmol/L Carbon Dioxide 18 L (22-30) mmol/L BUN 73 H (7-17) mg/dL Creatinine 2.00 H (0.52-1.04) mg/dL Glucose 178 H (74-99) mg/dL POC Glucose (mg/dL) (75-99) mg/dL Hemoglobin A1c 7.2 H (4.0-6.0) % Creatine Kinase 1190 H* (30-135) U/L Troponin I (0.000-0.034) ng/mL TSH 0.179 L (0.465-4.680) mIU/L Urine Appearance (Clear) Urine Protein (Negative) Urine Glucose (UA) (Negative) Urine Blood (Negative) Urine Bilirubin (Negative) Amorphous Sediment (None) /hpf 05/02/21 Range/Units 11:35 WBC (3.8-10.6) k/uL RBC (3.80-5.40) m/uL Hgb (11.4-16.0) gm/dL Hct (34.0-46.0) % Neutrophils # (1.3-7.7) k/uL Lymphocytes # (1.0-4.8) k/uL Chloride (98-107) mmol/L Carbon Dioxide (22-30) mmol/L BUN (7-17) mg/dL Creatinine (0.52-1.04) mg/dL Glucose (74-99) mg/dL POC Glucose (mg/dL) 186 H (75-99) mg/dL Hemoglobin A1c (4.0-6.0) % Creatine Kinase (30-135) U/L Troponin I (0.000-0.034) ng/mL TSH (0.465-4.680) mIU/L Urine Appearance (Clear) Urine Protein (Negative) Urine Glucose (UA) (Negative) Urine Blood (Negative) Urine Bilirubin (Negative) Amorphous Sediment (None) /hpf Assessment and Plan Assessment: Status post mechanical fall. Patient slipped while coming out of the shower. Left lower lobe pneumonia. Sepsis secondary above Elevated troponin level. Possible type II AL.. Hyperglycemia with uncontrolled diabetes type 2. 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 Improving. Osteoarthritis Mild cognitive impairment DVT prophylaxis with heparin subcu Plan: Patient will be continued on antibiotics and follow-up renal function and CK levels. Continue with insulin scale and start Levemir 15 units at bedtime and check A1c level. A1c level VII.2 Cardiology and pulmonary is on board. 2-D echo cardiac was ordered. Patient was started on low-dose Lasix 20 mg daily.. Continue to follow closely. Prognosis is guarded. Consulted PT OT. Continue to follow closely. Time with Patient: Greater than 30
--- NOTE | 2021-05-03 11:07 | P.PN ---
Subjective Progress Note Date: 05/03/21 Principal diagnosis: Pneumonia. Pulmonary consult dated 05/02/2021. 85-year-old female, with a past medical history of diabetes mellitus, and hypertension, as well as hyperlipidemia, and memory impairment, who presents to the emergency department via EMS, apparently having fallen. The patient also apparently has had diarrhea for the past week or so. She's been very weak. A pparently getting out of the shower, she said felt stuck stuck between the toilet in the shower. She apparently could not get out for about 3 hours. EMS arrived at home and were able to get the patient up. Apparently her sugars are quite high. She apparently had bilateral hip pain. Today in the room, the patient complains of cough shortness of breath and difficulty breathing. She didn't mention anything about the fall in the bathroom. She denies any chest pain or pressure. She is a bit confused. She was not in any respiratory distress. Her 4 L saturation was 99%. Her temperature is 97.8, heart rate was 77, respiratory rate 20, and blood pressure 121/62. Laboratory data includes a white count 15.9, hemoglobin 10.2, hematocrit 31.9, and a normal platelet count. Sodium 138, potassium 4.2, chlorides 108, CO2 18, anion gap 12, BUN 73, and creatinine 2. CK was 1190. Troponin was 0.132. Chest x-ray showed an extensive left-sided pneumonia. Progress note dated 05/03/2021. 85-year-old female, admitted with a diagnosis of left-sided pneumonia. She has a history of diabetes, hypertension, hyperlipidemia, and memory impairment. Apparently overnight, she developed atrial fibrillation with RVR, and was started on amiodarone. Clinically, the patient does not look horribly ill. Clinically, she seems a bit improved. She is a bit grumpy today, because she does not want to be in the hospital. White count 16.3, hemoglobin 10.4, hematocrit 32.1, and platelet count is normal. Sodium, potassium, chloride, CO2, anion gap are all normal. BUN is 75, with creatinine of 1.60. Chest x-ray from yesterday shows multifocal left-sided pneumonia with some improvement compared to the admission x-ray. Objective - Vital Signs Vital signs: Vital Signs Temp 96.4 F L 05/03/21 08:10 Pulse 153 H 05/03/21 10:15 Resp 18 05/03/21 08:10 BP 96/54 05/03/21 10:15 Pulse Ox 93 L 05/03/21 08:10 Intake & Output 05/02/21 05/03/21 05/03/21 18:59 06:59 18:59 Intake Total 720 240 Output Total 450 940 Balance 270 -940 240 Weight 90.1 kg Intake: Oral 720 240 Output: Urine 450 940 Other: Voiding Method Indwelling Catheter Indwelling Catheter Indwelling Catheter # Voids 1 - Exam No acute distress, a bit confused. Nasal O2 at 3 L is noted. Saturations are in the mid 90s. HEENT examination is grossly unremarkable. Neck supple. Full range of motion. No adenopathy thyromegaly or neck vein di stention. Cardiovascular examination reveals an irregular rhythm and rate. S1-S2 normal. No S3 or S4. No discernible murmur noted. Heart sounds are distant. Heart rate 119 bpm. Lungs mild bilateral scattered rhonchi. No wheezes or crackles. Breath sounds equal. Abdomen soft bowel sounds are heard. No masses or tenderness. Extremities are intact. No cyanosis clubbing or edema. Skin is without rash or lesion. Neurologic examination is brief but nonfocal. - Labs CBC & Chem 7: 05/03/21 08:20 05/03/21 08:20 Labs: Abnormal Lab Results - Last 24 Hours (Table) 05/02/21 05/02/21 05/02/21 Range/Units 06:52 11:35 16:41 WBC (3.8-10.6) k/uL RBC (3.80-5.40) m/uL Hgb (11.4-16.0) gm/dL Hct (34.0-46.0) % Neutrophils # (1.3-7.7) k/uL BUN (7-17) mg/dL Creatinine (0.52-1.04) mg/dL Glucose (74-99) mg/dL POC Glucose (mg/dL) 186 H 152 H (75-99) mg/dL Hemoglobin A1c 7.2 H (4.0-6.0) % 05/02/21 05/03/21 05/03/21 Range/Units 20:16 06:04 08:20 WBC 16.3 H (3.8-10.6) k/uL RBC 3.35 L (3.80-5.40) m/uL Hgb 10.4 L (11.4-16.0) gm/dL Hct 32.1 L (34.0-46.0) % Neutrophils # 14.5 H (1.3-7.7) k/uL BUN (7-17) mg/dL Creatinine (0.52-1.04) mg/dL Glucose (74-99) mg/dL POC Glucose (mg/dL) 231 H 159 H (75-99) mg/dL Hemoglobin A1c (4.0-6.0) % 05/03/21 Range/Units 08:20 WBC (3.8-10.6) k/uL RBC (3.80-5.40) m/uL Hgb (11.4-16.0) gm/dL Hct (34.0-46.0) % Neutrophils # (1.3-7.7) k/uL BUN 75 H (7-17) mg/dL Creatinine 1.60 H (0.52-1.04) mg/dL Glucose 169 H (74-99) mg/dL POC Glucose (mg/dL) (75-99) mg/dL Hemoglobin A1c (4.0-6.0) % Microbiology - Last 24 Hours (Table) 05/01/21 15:00 Blood Culture Gram Stain - Preliminary Blood 05/01/21 15:00 Blood Culture - Final Blood 05/01/21 15:15 Blood Culture - Preliminary Blood No Growth after 24 hours Assessment and Plan Assessment: Community-acquired pneumonia, left lung. Acute development of atrial fibrillation with rapid ventricular response, now on amiodarone. Status post fall. Weakness, secondary to diarrhea. History of diabetes mellitus. History of hypertension. History of hyperlipidemia. History of dementia/memory impairment. 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 Plan: Plan dated 05/02/2021. The patient is placed on Rocephin and Zithromax. She's currently on O2. We will continue to follow make recommendations were appropriate. The patient's on 3-4 L nasal cannula. Saturations are 99%. The patient is not manifesting any signs or symptoms of respiratory distress, conversational dyspnea, audible wheezing, or use of accessory muscles. Prognosis is guarded. Plan dated 05/03/2021. The patient is currently on amiodarone for the atrial fibrillation with rapid ventricular response. She is unhappy about being in the hospital. From the pulmonary standpoint, she appears reasonably stable. She is on 3 L. Saturations are in the mid 90s. Additional recommendations and suggestions are forthcoming. We will continue to follow and make recommendations where appropriate. A chest x-ray is ordered for tomorrow. Time with Patient: Less than 30
--- NOTE | 2021-05-03 11:40 | P.PN ---
Subjective Progress Note Date: 05/03/21 At approximately 0700 this morning the patient converted to A. fib with RVR with heart rates in the 150s to 160s. The patient states she continues to feel "unwell" but denies any worsening shortness of breath, chest pain, or palpitations. She is currently lying comfortably flat in the bed without respiratory distress. Echocardiogram reviewed from office records which was performed in the month of December. EF 50-55% with moderate aortic stenosis and mild to moderate mitral regurgitation GENERAL: Well-appearing, well-nourished and in no acute distress. NECK: Supple without JVD or thyromegaly. LUNGS: Breath sounds diminished on the right. Respiration equal and unlabored. Left inspiratory wheeze. HEART: Irregular rate and rhythm. Soft systolic murmur. No rubs or gallops. S1 and S2 heard. EXTREMITIES: Normal range of motion, no edema. No clubbing or cyanosis. Peripheral pulses intact and strong. VITALS: Blood pressure 90/53, SpO2 93% on 3 L nasal cannula, temperature 96.4F, respiratory rate 18 TELEMETRY: Atrophic fibrillation with RVR. rates in the 130s to 160s LABS: WBC 16.3, hemoglobin 10.4, hematocrit 32.1, platelets 191, sodium 139, potassium 3.9, BUN 75, creatinine 1.6 IMPRESSION: New onset A. fib with RVR, amiodarone bolus followed by by mouth amiodarone Status post mechanical fall Community-acquired pneumonia Leukocytosis Acute kidney injury Elevated troponins, secondary to fall Elevated CK Valvular heart disease, aortic stenosis and mitral regurgitation PLAN: 300 mg of amiodarone slow IV bolus over 3 hours 200 mg twice a day of oral amiodarone for 2 weeks, followed by 200 mg daily for 6 weeks Encourage oral hydration Further recommendations will be based upon clinical course The patient has been seen and evaluated. Plan of care has been reviewed and agreed upon by Dr Shepherd. Objective - Vital Signs Vital signs: Vital Signs Temp 96.4 F L 05/03/21 08:10 Pulse 153 H 05/03/21 10:15 Resp 18 05/03/21 08:10 BP 96/54 05/03/21 10:15 Pulse Ox 93 L 05/03/21 08:10 Intake & Output 05/02/21 05/03/21 05/03/21 18:59 06:59 18:59 Intake Total 720 240 Output Total 450 940 Balance 270 -940 240 Weight 90.1 kg Intake: Oral 720 240 Output: Urine 450 940 Other: Voiding Method Indwelling Catheter Indwelling Catheter Indwelling Catheter # Voids 1 - Labs CBC & Chem 7: 05/03/21 08:20 05/03/21 08:20 Labs: Abnormal Lab Results - Last 24 Hours (Table) 05/02/21 05/02/21 05/02/21 Range/Units 06:52 11:35 16:41 WBC (3.8-10.6) k/uL RBC (3.80-5.40) m/uL Hgb (11.4-16.0) gm/dL Hct (34.0-46.0) % Neutrophils # (1.3-7.7) k/uL BUN (7-17) mg/dL Creatinine (0.52-1.04) mg/dL Glucose (74-99) mg/dL POC Glucose (mg/dL) 186 H 152 H (75-99) mg/dL Hemoglobin A1c 7.2 H (4.0-6.0) % 05/02/21 05/03/21 05/03/21 Range/Units 20:16 06:04 08:20 WBC 16.3 H (3.8-10.6) k/uL RBC 3.35 L (3.80-5.40) m/uL Hgb 10.4 L (11.4-16.0) gm/dL Hct 32.1 L (34.0-46.0) % Neutrophils # 14.5 H (1.3-7.7) k/uL BUN (7-17) mg/dL Creatinine (0.52-1.04) mg/dL Glucose (74-99) mg/dL POC Glucose (mg/dL) 231 H 159 H (75-99) mg/dL Hemoglobin A1c (4.0-6.0) % 05/03/21 Range/Units 08:20 WBC (3.8-10.6) k/uL RBC (3.80-5.40) m/uL Hgb (11.4-16.0) gm/dL Hct (34.0-46.0) % Neutrophils # (1.3-7.7) k/uL BUN 75 H (7-17) mg/dL Creatinine 1.60 H (0.52-1.04) mg/dL Glucose 169 H (74-99) mg/dL POC Glucose (mg/dL) (75-99) mg/dL Hemoglobin A1c (4.0-6.0) % Microbiology - Last 24 Hours (Table) 05/01/21 15:00 Blood Culture Gram Stain - Preliminary Blood 05/01/21 15:00 Blood Culture - Final Blood 05/01/21 15:15 Blood Culture - Preliminary Blood No Growth after 24 hours
[2021-05-03 12:02] LABS: Glucose,Whole Blood 197 mg/dL (75-99)
[2021-05-03] MEDS: AZITHROMYCIN 500 MG TAB PO SCH (15:35)
[2021-05-03 16:59] LABS: Glucose,Whole Blood 220 mg/dL (75-99)
--- NOTE | 2021-05-03 18:35 | P.PN ---
Subjective Progress Note Date: 05/03/21 Principal diagnosis: Left lower lobe pneumonia Sepsis secondary to above Elevated troponin level New onset atrial fibrillation with aberrant Right Acute kidney improvement. Patient is a 85-year-old female with a known history of diabetes type 2, mild cognitive impairment was brought to the hospital by EMS. Patient states that she had a fall at her home' She woke up in the morning and went to the shower. While getting out of the shower she and fell and struck in between the toilet and shower. She laid the for about couple hours. Finally she was able to call her family, who called EMS and was brought to the hospital. Patient was found to have blood sugar in 400s which is unusual for her. She has been having generalized weakness. Patient also states that she did have diarrhea for the past week 1-2 episodes. Patient lives by herself at home. No complaints of chest pain or shortness of breath. No nausea vomiting abdominal pain or diarrhea. No headache or dizzi ness lightheadedness. No fever no chills. Denies any recent illnesses. On admission patient was tachycardic with heart rate 112, blood pressure 128/78 pulse ox 98% on room air and patient has been afebrile. CT head and cervical spine showed age-related atrophic and chronic small vessel ischemic changes without any acute intracranial process. CT of the cervical spine showed no evidence of acute fracture or subluxation of the cervical spine. Pelvic x-ray showed no evidence of fracture. Degenerative changes of the bilateral hips left greater than right. Chest x-ray showed diffuse left-sided areas of infiltrate in the setting of trauma could be on the basis of pulmonary contusion correlate to exclude pneumonia asymmetric edema. CT of the abdomen pelvis and chest showed large area of airspace consolidation left lower lobe. EKG showed sinus tachycardia with occasional PVCs. Laboratory data showed WBC 15.3, hemoglobin 10.9 and platelets 180 sodium 137 potassium 4.1 BUN 16 creatinine 2.37 blood sugar is 352 CK 3081 and troponin 0 0.225 and urinalysis is negative for infection. 05/02/2021 Patient is currently resting in the bed comfortably. Overnight rapid response team was called due to shortness of breath. IV fluids were discontinued for possible fluid load. Patient was complaining of Nausea and was given a dose of Zofran and started on Pepcid. Otherwise patient is being continued on antibiotics the form of azithromycin and Zosyn was changed to ceftriaxone for committing or pneumonia. Patient was seen by cardiology. 2-D echocardiogram was ordered and was started on low-dose Lasix. Laboratory data showed WBC trending down to 15.9, hemoglobin 10.2 and platelets 177, TSH 0.179 and free T4 level is 0.71. BUN 70. Creatinine 2.0. Patient is tolerating oral diet. CPK level is trending down. IV fluids on hold. Patient has been afebrile. No abdominal pain or diarrhea. Cardiology and pulmonary is on board. 05/03/2021 Patient was admitted to the hospital status post fall. Currently being treated for left lower lobe pneumonia. Patient had atrial fibrillation with rapid ventricular rate in 150s this morning. Patient was given amiodarone bolus and started on oral amiodarone. Patient is awake alert and oriented. Resting the bed comfortably currently. No fever no chills. Laboratory data showed WBC 16.3, hemoglobin 10.4 and platelets 191 BUN 75 and creatinine trending down to 1.6 today. Blood sugar is controlled. Patient is being continued on Lantus/Levemir 15 units at bedtime along with insulin sliding scale. Cardiology and pulmonary is on board. 2-D echocardiogram was reviewed by cardiology from office. Ejection fraction 50-55% and mild to moderate mitral regurgitation. Current medications reviewed. Objective - Vital Signs Vital signs: Vital Signs Temp 98.2 F 05/02/21 23:43 Pulse 105 H 05/03/21 03:26 Resp 20 05/03/21 03:26 BP 142/68 05/03/21 03:26 Pulse Ox 98 05/03/21 03:26 Intake & Output 05/02/21 05/03/21 05/03/21 18:59 06:59 18:59 Intake Total 720 240 Output Total 450 940 Balance 270 -940 240 Weight 90.1 kg Intake: Oral 720 240 Output: Urine 450 940 Other: Voiding Method Indwelling Catheter Indwelling Catheter # Voids 1 - Exam PHYSICAL EXAMINATION: Patient is lying in the bed comfortably, no acute distress, awake alert and oriented.. HEENT: Normocephalic. Neck is supple. Pupils reactive. Nostrils clear. Oral cavity is moist. Neck reveals no JVD, carotid bruits, or thyromegaly. CHEST EXAMINATION: Trachea is central. Symmetrical expansion. Bilateral improved air entry.. No wheezing or rhonchi.. CARDIAC: Normal S1, S2 with no gallops. No murmurs ABDOMEN: Soft. Bowel sounds normal. No organomegaly. No abdominal bruits. Extremities: reveal no edema. No clubbing or cyanosis Neurologically awake, alert, oriented x3 with well-coordinated movements. No focal deficits noted Skin: No rash or skin lesions. Psychiatric: Coperative. Nonsuicidal Musculoskeletal: No joint swelling or deformity. Normal range of motion. - Labs CBC & Chem 7: 05/03/21 08:20 05/03/21 08:20 Labs: Abnormal Lab Results - Last 24 Hours (Table) 05/02/21 05/02/21 05/02/21 Range/Units 06:52 11:35 16:41 WBC (3.8-10.6) k/uL RBC (3.80-5.40) m/uL Hgb (11.4-16.0) gm/dL Hct (34.0-46.0) % Neutrophils # (1.3-7.7) k/uL BUN (7-17) mg/dL Creatinine (0.52-1.04) mg/dL Glucose (74-99) mg/dL POC Glucose (mg/dL) 186 H 152 H (75-99) mg/dL Hemoglobin A1c 7.2 H (4.0-6.0) % 05/02/21 05/03/21 05/03/21 Range/Units 20:16 06:04 08:20 WBC 16.3 H (3.8-10.6) k/uL RBC 3.35 L (3.80-5.40) m/uL Hgb 10.4 L (11.4-16.0) gm/dL Hct 32.1 L (34.0-46.0) % Neutrophils # 14.5 H (1.3-7.7) k/uL BUN (7-17) mg/dL Creatinine (0.52-1.04) mg/dL Glucose (74-99) mg/dL POC Glucose (mg/dL) 231 H 159 H (75-99) mg/dL Hemoglobin A1c (4.0-6.0) % 05/03/21 Range/Units 08:20 WBC (3.8-10.6) k/uL RBC (3.80-5.40) m/uL Hgb (11.4-16.0) gm/dL Hct (34.0-46.0) % Neutrophils # (1.3-7.7) k/uL BUN 75 H (7-17) mg/dL Creatinine 1.60 H (0.52-1.04) mg/dL Glucose 169 H (74-99) mg/dL POC Glucose (mg/dL) (75-99) mg/dL Hemoglobin A1c (4.0-6.0) % Microbiology - Last 24 Hours (Table) 05/01/21 15:00 Blood Culture Gram Stain - Preliminary Blood 05/01/21 15:00 Blood Culture - Final Blood 05/01/21 15:15 Blood Culture - Preliminary Blood No Growth after 24 hours Assessment and Plan Assessment: Status post fall. Patient slipped while coming out of the shower. Left lower lobe pneumonia. Sepsis secondary above New onset A. fib with RVR. Elevated troponin level. 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 [id number] mitral regurgitation and moderate aortic stenosis Hyperglycemia with uncontrolled diabetes type 2. 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 Improving. Osteoarthritis Mild cognitive impairment DVT prophylaxis with heparin subcu Plan: Patient was given amiodarone bolus and continue with oral amiodarone for new onset atrial fibrillation. Cardiology is following. Patient will be continued on antibiotics and follow-up renal function and CK levels. Continue with insulin scale and start Levemir 15 units at bedtime and check A1c level. A1c level VII.2 Cardiology and pulmonary is on board. 2-D echo report reviewed from office.. Continue to follow closely. Prognosis is guarded. Consulted PT OT. Continue to follow closely. Time with Patient: Greater than 30
[2021-05-03 19:57] LABS: Glucose,Whole Blood 179 mg/dL (75-99)
[2021-05-03] MEDS: ATORVASTATIN 10 MG TAB PO SCH (19:59)
[2021-05-03] MEDS: FAMOTIDINE 20 MG TAB PO SCH (19:59)
[2021-05-03] MEDS: INSULIN DETEMIR (LEVEMIR) 100 UNIT/ML SYR SQ SCH (19:59)
[2021-05-04 06:11] LABS: Glucose,Whole Blood 162 mg/dL (75-99)
[2021-05-04] MEDS: INSULIN ASPART (NovoLOG) 100 UNIT/ML VIAL SQ SCH ×4 (06:39→20:37)
[2021-05-04 07:27] LABS: Calcium 9.3 mg/dL (8.4-10.2)
[2021-05-04 07:54] LABS: Potassium 4.9 mmol/L (3.5-5.1)
--- NOTE | 2021-05-04 08:21 | XR ---
EXAMINATION TYPE: XR chest 1V portable DATE OF EXAM: 05/04/2021 COMPARISON: 05/02/2021 HISTORY: Congestive heart failure TECHNIQUE: Single frontal view of the chest is obtained. FINDINGS: Heart size is stable. Athetotic aorta. There is again patchy airspace opacity throughout t he left lung, greatest at the left mid and lower lobes. Moderate left pleural effusion. No pneumothor ax. Probable underlying left asymmetric pulmonary edema. Osteopenia and degenerative changes of the s houlders. IMPRESSION: 1. Multifocal patchy airspace opacities throughout the left lung suggestive of pneumonia with moderat e left pleural effusion. There is likely superimposed pulmonary edema within the left lung.
[2021-05-04 08:29] LABS: HCT 31.6 % (34.0-46.0); HGB 10.3 gm/dL (11.4-16.0); MCH 30.5 pg (25.0-35.0); MCHC 32.4 g/dL (31.0-37.0); Mean Platelet Volume 10.7; RBC 3.37 m/uL (3.80-5.40); RDW 13.3 % (11.5-15.5); WBC 13.2 k/uL (3.8-10.6)
[2021-05-04 09:14] LABS: Band Neutrophils % 1 %; Eosinophils # (M) 0.13 k/uL (0-0.7); Lymphocytes # (M) 0.92 k/uL (1.0-4.8); Monocytes # (M) 0.92 k/uL (0-1.0); Myelocytes # (M) 0.13 k/uL (0); Myelocytes % 1 %; Neutrophils % (M) 86 %; Nucleated Red Blood Cells 0 /100 WBC (0-0); Total Cells Counted 200
[2021-05-04] MEDS: LOSARTAN 25 MG TAB PO SCH (09:36)
[2021-05-04] MEDS: AMIODARONE 200 MG TAB PO SCH ×2 (09:36→20:37)
[2021-05-04] MEDS: MEMANTINE 5 MG TAB PO SCH ×2 (09:36→20:37)
[2021-05-04] MEDS: HEPARIN SODIUM,PORCINE/PF 5,000 UNIT/0.5 ML SYRINGE SQ SCH ×2 (09:36→17:27)
--- NOTE | 2021-05-04 10:22 | P.PN ---
Subjective Progress Note Date: 05/04/21 The patient does believe she is feeling slightly better today in comparison to yesterday. She did convert back to sinus rhythm after receiving a slow amiodarone bolus. She denies any exertional chest pain or chest pressure. No shortness of breath at rest. No palpitations, dizziness, or lightheadedness. Echocardiogram reviewed from office records which was performed in the month of December. EF 50-55% with moderate aortic stenosis and mild to moderate mitral regurgitation GENERAL: Well-appearing, well-nourished and in no acute distress. NECK: Supple without JVD or thyromegaly. LUNGS: Breath sounds diminished on the right. Respiration equal and unlabored. Bilateral inspiratory wheezes. HEART: Irregular rate and rhythm; PVCs. Soft systolic murmur. No rubs or gallops. S1 and S2 heard. EXTREMITIES: Normal range of motion, no edema. No clubbing or cyanosis. Peripheral pulses intact and strong. VITALS: Blood pressure 118/60, SpO2 98% on 3 L nasal cannula, respiratory rate 18, pulse rate 96, temperature 99F TELEMETRY: Sinus rhythm with PVCs LABS: WBC 13.2, hemoglobin 10.3, hematocrit 31.6, sodium 139, potassium 4.9, BUN 67, creatinine 1.19 IMPRESSION: New onset A. fib with RVR, amiodarone bolus followed by by mouth amiodarone Status post mechanical fall Community-acquired pneumonia Leukocytosis Acute kidney injury Elevated troponins, secondary to fall Elevated CK Valvular heart disease, aortic stenosis and mitral regurgitation PLAN: Continue amiodarone Start novel anticoagulation; recommend Eliquis 5 mg twice daily Encourage oral hydration Further recommendations will be based upon clinical course The patient has been seen and evaluated. Plan of care has been reviewed and agreed upon by Dr Shepherd. Objective - Vital Signs Vital signs: Vital Signs Temp 99 F 05/04/21 04:00 Pulse 96 05/04/21 04:00 Resp 18 05/04/21 04:00 BP 118/60 05/04/21 04:00 Pulse Ox 98 05/04/21 04:00 Intake & Output 05/03/21 05/04/21 05/04/21 18:59 06:59 18:59 Intake Total 720 240 Output Total 400 880 Balance 320 -880 240 Weight 89.7 kg Intake: Oral 720 240 Output: Urine 400 880 Other: Voiding Method Indwelling Catheter Indwelling Catheter # Voids 1 # Bowel Movements 1 - Labs CBC & Chem 7: 05/04/21 06:50 05/04/21 06:28 Labs: Abnormal Lab Results - Last 24 Hours (Table) 05/03/21 05/03/21 05/03/21 Range/Units 12:01 16:57 19:56 WBC (3.8-10.6) k/uL RBC (3.80-5.40) m/uL Hgb (11.4-16.0) gm/dL Hct (34.0-46.0) % Neutrophils # (Manual) (1.3-7.7) k/uL Lymphocytes # (Manual) (1.0-4.8) k/uL Myelocytes # (Manual) (0) k/uL Chloride (98-107) mmol/L Carbon Dioxide (22-30) mmol/L BUN (7-17) mg/dL Creatinine (0.52-1.04) mg/dL Glucose (74-99) mg/dL POC Glucose (mg/dL) 197 H 220 H 179 H (75-99) mg/dL 05/04/21 05/04/21 05/04/21 Range/Units 06:10 06:28 06:50 WBC 13.2 H (3.8-10.6) k/uL RBC 3.37 L (3.80-5.40) m/uL Hgb 10.3 L (11.4-16.0) gm/dL Hct 31.6 L (34.0-46.0) % Neutrophils # (Manual) 11.40 H (1.3-7.7) k/uL Lymphocytes # (Manual) 0.92 L (1.0-4.8) k/uL Myelocytes # (Manual) 0.13 H (0) k/uL Chloride 111 H (98-107) mmol/L Carbon Dioxide 17 L (22-30) mmol/L BUN 67 H (7-17) mg/dL Creatinine 1.19 H (0.52-1.04) mg/dL Glucose 169 H (74-99) mg/dL POC Glucose (mg/dL) 162 H (75-99) mg/dL Microbiology - Last 24 Hours (Table) 05/01/21 15:15 Blood Culture - Preliminary Blood No Growth after 48 hours 05/01/21 15:00 Blood Culture Gram Stain - Preliminary Blood Blood Culture - Preliminary Haemophilus influenzae 05/01/21 15:00 Blood Culture - Final Blood
[2021-05-04] MEDS ORDERED: FUROSEMIDE 10 MG/ML 2 ML VIAL IV ONE (10:30)
--- NOTE | 2021-05-04 11:08 | P.PN ---
Subjective Progress Note Date: 05/04/21 Principal diagnosis: Pneumonia. Pulmonary consult dated 05/02/2021. 85-year-old female, with a past medical history of diabetes mellitus, and hypertension, as well as hyperlipidemia, and memory impairment, who presents to the emergency department via EMS, apparently having fallen. The patient also apparently has had diarrhea for the past week or so. She's been very weak. A pparently getting out of the shower, she said felt stuck stuck between the toilet in the shower. She apparently could not get out for about 3 hours. EMS arrived at home and were able to get the patient up. Apparently her sugars are quite high. She apparently had bilateral hip pain. Today in the room, the patient complains of cough shortness of breath and difficulty breathing. She didn't mention anything about the fall in the bathroom. She denies any chest pain or pressure. She is a bit confused. She was not in any respiratory distress. Her 4 L saturation was 99%. Her temperature is 97.8, heart rate was 77, respiratory rate 20, and blood pressure 121/62. Laboratory data includes a white count 15.9, hemoglobin 10.2, hematocrit 31.9, and a normal platelet count. Sodium 138, potassium 4.2, chlorides 108, CO2 18, anion gap 12, BUN 73, and creatinine 2. CK was 1190. Troponin was 0.132. Chest x-ray showed an extensive left-sided pneumonia. Progress note dated 05/03/2021. 85-year-old female, admitted with a diagnosis of left-sided pneumonia. She has a history of diabetes, hypertension, hyperlipidemia, and memory impairment. Apparently overnight, she developed atrial fibrillation with RVR, and was started on amiodarone. Clinically, the patient does not look horribly ill. Clinically, she seems a bit improved. She is a bit grumpy today, because she does not want to be in the hospital. White count 16.3, hemoglobin 10.4, hematocrit 32.1, and platelet count is normal. Sodium, potassium, chloride, CO2, anion gap are all normal. BUN is 75, with creatinine of 1.60. Chest x-ray from yesterday shows multifocal left-sided pneumonia with some improvement compared to the admission x-ray. Progress note dated 05/04/2021. Pleasant 85-year-old female admitted with a diagnosis of left-sided pneumonia. She also has a history of diabetes, hypertension, hyperlipidemia, and memory impairment. Currently, she is doing better. She sitting up in a chair. She is on O2 at 3 L. She's getting saline at 10 mL an hour. She has no major complaints today. White count 13.2, hemoglobin 10.3, hematocrit 31.6, platelet count is pending. Sodium 139, potassium 4.9, chlorides 111, CO2 17, anion gap 11, BUN 67, and creatinine 1.19. Chest x-ray shows multifocal patchy airspace opacities throughout the left lung, consistent with pneumonia. Blood cultures are positive for Haemophilus influenzae. Objective - Vital Signs Vital signs: Vital Signs Temp 98.5 F 05/04/21 08:00 Pulse 105 H 05/04/21 08:00 Resp 18 05/04/21 08:00 BP 134/63 05/04/21 08:00 Pulse Ox 98 05/04/21 08:00 Intake & Output 05/03/21 05/04/21 05/04/21 18:59 06:59 18:59 Intake Total 720 240 Output Total 400 880 Balance 320 -880 240 Weight 89.7 kg Intake: Oral 720 240 Output: Urine 400 880 Other: Voiding Method Indwelling Catheter Indwelling Catheter # Voids 1 # Bowel Movements 1 - Exam No acute distress, a bit confused. Nasal O2 at 3 L is noted. Saturations are in the mid 90s. HEENT examination is grossly unremarkable. Neck supple. Full range of motion. No adenopathy thyromegaly or neck vein distention. Cardiovascular examination reveals a regular rhythm and rate. S1-S2 normal. No S3 or S4. No discernible murmur noted. Heart sounds are distant. Heart rate 105 bpm. Lungs mild bilateral scattered rhonchi. No wheezes or crackles. Breath sounds equal. Abdomen soft bowel sounds are heard. No masses or tenderness. Extremities are intact. No cyanosis clubbing or edema. Skin is without rash or lesion. Neurologic examination is brief but nonfocal. - Labs CBC & Chem 7: 05/04/21 06:50 05/04/21 06:28 Labs: Abnormal Lab Results - Last 24 Hours (Table) 05/03/21 05/03/21 05/03/21 Range/Units 12:01 16:57 19:56 WBC (3.8-10.6) k/uL RBC (3.80-5.40) m/uL Hgb (11.4-16.0) gm/dL Hct (34.0-46.0) % Neutrophils # (Manual) (1.3-7.7) k/uL Lymphocytes # (Manual) (1.0-4.8) k/uL Myelocytes # (Manual) (0) k/uL Chloride (98-107) mmol/L Carbon Dioxide (22-30) mmol/L BUN (7-17) mg/dL Creatinine (0.52-1.04) mg/dL Glucose (74-99) mg/dL POC Glucose (mg/dL) 197 H 220 H 179 H (75-99) mg/dL 05/04/21 05/04/21 05/04/21 Range/Units 06:10 06:28 06:50 WBC 13.2 H (3.8-10.6) k/uL RBC 3.37 L (3.80-5.40) m/uL Hgb 10.3 L (11.4-16.0) gm/dL Hct 31.6 L (34.0-46.0) % Neutrophils # (Manual) 11.40 H (1.3-7.7) k/uL Lymphocytes # (Manual) 0.92 L (1.0-4.8) k/uL Myelocytes # (Manual) 0.13 H (0) k/uL Chloride 111 H (98-107) mmol/L Carbon Dioxide 17 L (22-30) mmol/L BUN 67 H (7-17) mg/dL Creatinine 1.19 H (0.52-1.04) mg/dL Glucose 169 H (74-99) mg/dL POC Glucose (mg/dL) 162 H (75-99) mg/dL Microbiology - Last 24 Hours (Table) 05/01/21 15:15 Blood Culture - Preliminary Blood No Growth after 48 hours 05/01/21 15:00 Blood Culture Gram Stain - Preliminary Blood Blood Culture - Preliminary Haemophilus influenzae 05/01/21 15:00 Blood Culture - Final Blood Assessment and Plan Assessment: Community-acquired pneumonia, left lung. Acute development of atrial fibrillation with rapid ventricular response, now on amiodarone. Patient now in sinus rhythm. Blood cultures positive for Haemophilus influenzae. Status post fall. Weakness, secondary to diarrhea. History of diabetes mellitus. History of hypertension. History of hyperlipidemia. History of dementia/memory impairment. 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 Plan: Plan dated 05/02/2021. The patient is placed on Rocephin and Zithromax. She's currently on O2. We will continue to follow make recommendations were appropriate. The patient's on 3-4 L nasal cannula. Saturations are 99%. The patient is not manifesting any signs or symptoms of respiratory distress, conversational dyspnea, audible wheezing, or use of accessory muscles. Prognosis is guarded. Plan dated 05/03/2021. The patient is currently on amiodarone for the atrial fibrillation with rapid ventricular response. She is unhappy about being in the hospital. From the pulmonary standpoint, she appears reasonably stable. She is on 3 L. Saturations are in the mid 90s. Additional recommendations and suggestions are forthcoming. We will continue to follow and make recommendations where appropriate. A chest x-ray is ordered for tomorrow. Plan dated 05/04/2021. The patient is now in sinus rhythm. The patient was on amiodarone. Also, blood cultures were positive for Haemophilus influenzae. The patient is currently on Omnicef and Zithromax. Vital signs are stable. We will continue to follow make recommendations were appropriate. Time with Patient: Less than 30
[2021-05-04 11:34] LABS: Glucose,Whole Blood 222 mg/dL (75-99)
[2021-05-04 16:47] LABS: Glucose,Whole Blood 260 mg/dL (75-99)
[2021-05-04] MEDS: AZITHROMYCIN 500 MG TAB PO SCH (17:27)
--- NOTE | 2021-05-04 17:31 | P.PN ---
Subjective Progress Note Date: 05/04/21 Principal diagnosis: Left lower lobe pneumonia Sepsis secondary to above Elevated troponin level New onset atrial fibrillation with aberrant Right Acute kidney improvement. Patient is a 85-year-old female with a known history of diabetes type 2, mild cognitive impairment was brought to the hospital by EMS. Patient states that she had a fall at her home' She woke up in the morning and went to the shower. While getting out of the shower she and fell and struck in between the toilet and shower. She laid the for about couple hours. Finally she was able to call her family, who called EMS and was brought to the hospital. Patient was found to have blood sugar in 400s which is unusual for her. She has been having generalized weakness. Patient also states that she did have diarrhea for the past week 1-2 episodes. Patient lives by herself at home. No complaints of chest pain or shortness of breath. No nausea vomiting abdominal pain or diarrhea. No headache or dizzi ness lightheadedness. No fever no chills. Denies any recent illnesses. On admission patient was tachycardic with heart rate 112, blood pressure 128/78 pulse ox 98% on room air and patient has been afebrile. CT head and cervical spine showed age-related atrophic and chronic small vessel ischemic changes without any acute intracranial process. CT of the cervical spine showed no evidence of acute fracture or subluxation of the cervical spine. Pelvic x-ray showed no evidence of fracture. Degenerative changes of the bilateral hips left greater than right. Chest x-ray showed diffuse left-sided areas of infiltrate in the setting of trauma could be on the basis of pulmonary contusion correlate to exclude pneumonia asymmetric edema. CT of the abdomen pelvis and chest showed large area of airspace consolidation left lower lobe. EKG showed sinus tachycardia with occasional PVCs. Laboratory data showed WBC 15.3, hemoglobin 10.9 and platelets 180 sodium 137 potassium 4.1 BUN 16 creatinine 2.37 blood sugar is 352 CK 3081 and troponin 0 0.225 and urinalysis is negative for infection. 05/02/2021 Patient is currently resting in the bed comfortably. Overnight rapid response team was called due to shortness of breath. IV fluids were discontinued for possible fluid load. Patient was complaining of Nausea and was given a dose of Zofran and started on Pepcid. Otherwise patient is being continued on antibiotics the form of azithromycin and Zosyn was changed to ceftriaxone for committing or pneumonia. Patient was seen by cardiology. 2-D echocardiogram was ordered and was started on low-dose Lasix. Laboratory data showed WBC trending down to 15.9, hemoglobin 10.2 and platelets 177, TSH 0.179 and free T4 level is 0.71. BUN 70. Creatinine 2.0. Patient is tolerating oral diet. CPK level is trending down. IV fluids on hold. Patient has been afebrile. No abdominal pain or diarrhea. Cardiology and pulmonary is on board. 05/03/2021 Patient was admitted to the hospital status post fall. Currently being treated for left lower lobe pneumonia. Patient had atrial fibrillation with rapid ventricular rate in 150s this morning. Patient was given amiodarone bolus and started on oral amiodarone. Patient is awake alert and oriented. Resting the bed comfortably currently. No fever no chills. Laboratory data showed WBC 16.3, hemoglobin 10.4 and platelets 191 BUN 75 and creatinine trending down to 1.6 today. Blood sugar is controlled. Patient is being continued on Lantus/Levemir 15 units at bedtime along with insulin sliding scale. Cardiology and pulmonary is on board. 2-D echocardiogram was reviewed by cardiology from office. Ejection fraction 50-55% and mild to moderate mitral regurgitation. 05/04/2021 Patient is currently sitting in the chair. Comfortable. Awake alert oriented 3. No complaints of chest pain or worsening shortness of breath. Breathing is much easier. No complaints of headache or dizziness or lightheadedness. Blood cultures showed hemoglobin is influenza. Patient will be continued on ceftriaxone and azithromycin. Patient also developed new onset atrial fibrillation with rapid ventricular rate. Current back to sinus rhythm. Status post amiodarone bolus dose and currently on by mouth amiodarone. At the conclusion was started in the form of Eliquis. Patient has been afebrile. No nausea vomiting abdominal pain or diarrhea. Tolerating oral diet. Renal function is improving. Cardiology and pulmonary is on board. Current medications reviewed. Objective - Vital Signs Vital signs: Vital Signs Temp 98.5 F 05/04/21 08:00 Pulse 107 H 05/04/21 12:00 Resp 18 05/04/21 12:00 BP 156/67 05/04/21 12:00 Pulse Ox 98 05/04/21 12:00 Intake & Output 05/03/21 05/04/21 05/04/21 18:59 06:59 18:59 Intake Total 720 476 Output Total 400 880 900 Balance 320 -880 -424 Weight 89.7 kg Intake: Oral 720 476 Output: Urine 400 880 900 Uretheral (Harding) 450 Other: Voiding Method Indwelling Catheter Indwelling Catheter Indwelling Catheter # Voids 1 # Bowel Movements 1 - Exam PHYSICAL EXAMINATION: Patient is lying in the bed comfortably, no acute distress, awake alert and oriented.. HEENT: Normocephalic. Neck is supple. Pupils reactive. Nostrils clear. Oral cavity is moist. Neck reveals no JVD, carotid bruits, or thyromegaly. CHEST EXAMINATION: Trachea is central. Symmetrical expansion. Bilateral improved air entry.. No wheezing or rhonchi.. CARDIAC: Normal S1, S2 with no gallops. No murmurs ABDOMEN: Soft. Bowel sounds normal. No organomegaly. No abdominal bruits. Extremities: reveal no edema. No clubbing or cyanosis Neurologically awake, alert, oriented x3 with well-coordinated movements. No focal deficits noted Skin: No rash or skin lesions. Psychiatric: Coperative. Nonsuicidal Musculoskeletal: No joint swelling or deformity. Normal range of motion. - Labs CBC & Chem 7: 05/04/21 06:50 05/04/21 06:28 Labs: Abnormal Lab Results - Last 24 Hours (Table) 05/03/21 05/04/21 05/04/21 Range/Units 19:56 06:10 06:28 WBC (3.8-10.6) k/uL RBC (3.80-5.40) m/uL Hgb (11.4-16.0) gm/dL Hct (34.0-46.0) % Neutrophils # (Manual) (1.3-7.7) k/uL Lymphocytes # (Manual) (1.0-4.8) k/uL Myelocytes # (Manual) (0) k/uL Chloride 111 H (98-107) mmol/L Carbon Dioxide 17 L (22-30) mmol/L BUN 67 H (7-17) mg/dL Creatinine 1.19 H (0.52-1.04) mg/dL Glucose 169 H (74-99) mg/dL POC Glucose (mg/dL) 179 H 162 H (75-99) mg/dL 05/04/21 05/04/21 05/04/21 Range/Units 06:50 11:33 16:46 WBC 13.2 H (3.8-10.6) k/uL RBC 3.37 L (3.80-5.40) m/uL Hgb 10.3 L (11.4-16.0) gm/dL Hct 31.6 L (34.0-46.0) % Neutrophils # (Manual) 11.40 H (1.3-7.7) k/uL Lymphocytes # (Manual) 0.92 L (1.0-4.8) k/uL Myelocytes # (Manual) 0.13 H (0) k/uL Chloride (98-107) mmol/L Carbon Dioxide (22-30) mmol/L BUN (7-17) mg/dL Creatinine (0.52-1.04) mg/dL Glucose (74-99) mg/dL POC Glucose (mg/dL) 222 H 260 H (75-99) mg/dL Microbiology - Last 24 Hours (Table) 05/01/21 15:00 Blood Culture Gram Stain - Final Blood Blood Culture - Final Haemophilus influenzae 05/01/21 15:15 Blood Culture - Final Blood 05/01/21 15:15 Blood Culture Gram Stain - Preliminary Blood Assessment and Plan Assessment: Status post fall. Patient slipped while coming out of the shower. Left lower lobe pneumonia. Blood cultures showed Haemophilus influenza Sepsis secondary above New onset A. fib with RVR. Elevated troponin level. Possible type II OK.. [id number] mitral regurgitation and moderate aortic stenosis Hyperglycemia with uncontrolled diabetes type 2. 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 Improving. Osteoarthritis Mild cognitive impairment DVT prophylaxis with heparin subcu Plan: Patient was given amiodarone bolus and continue with oral amiodarone for new onset atrial fibrillation. Converted back to sinus rhythm.. Cardiology is following. Patient was started on anticoagulation with Eliquis. Patient will be continued on antibiotics. Renal function is improving.. Continue with insulin scale and started on Levemir 15 units at bedtime and A1c level VII.2. Patient is on metformin and glipizide at home. Cardiology and pulmonary is on board. 2-D echo report reviewed from office.. Continue to follow closely. Prognosis is guarded. Consulted PT OT. Continue to follow closely. Time with Patient: Greater than 30
[2021-05-04 20:31] LABS: Glucose,Whole Blood 289 mg/dL (75-99)
[2021-05-04] MEDS: ATORVASTATIN 10 MG TAB PO SCH (20:37)
[2021-05-04] MEDS: APIXABAN 5 MG TAB PO SCH (20:37)
[2021-05-04] MEDS: FAMOTIDINE 20 MG TAB PO SCH (20:37)
[2021-05-04] MEDS: INSULIN DETEMIR (LEVEMIR) 100 UNIT/ML SYR SQ SCH (20:37)
[2021-05-04] MEDS ORDERED: CEFDINIR 300 MG CAP PO SCH (21:00)
[2021-05-05 06:12] LABS: Glucose,Whole Blood 124 mg/dL (75-99)
[2021-05-05] MEDS: INSULIN ASPART (NovoLOG) 100 UNIT/ML VIAL SQ SCH ×4 (06:13→21:35)
[2021-05-05] MEDS: LOSARTAN 25 MG TAB PO SCH (09:10)
[2021-05-05] MEDS: MEMANTINE 5 MG TAB PO SCH ×2 (09:10→20:02)
[2021-05-05] MEDS: AMIODARONE 200 MG TAB PO SCH ×2 (09:10→20:02)
[2021-05-05] MEDS: APIXABAN 5 MG TAB PO SCH ×2 (09:10→20:02)
--- NOTE | 2021-05-05 10:50 | P.PN ---
Subjective Progress Note Date: 05/05/21 HISTORY OF PRESENT ILLNESS: This is an 85-year-old female who follows in the office with Dr. Grande. Patient is admitted to the hospital due to mechanical fall and pneumonia. Patient was found to be in atrial fibrillation, which is new onset. Patient received amiodarone and is maintaining sinus mechanism. Patient is anticoagulated with Eliquis. Patient had an echocardiogram performed in December 2020 at the office revealing ejection fraction 50-55% with moderate aortic stenosis and [id number] mitral regurgitation. PHYSICAL EXAM: VITAL SIGNS: Reviewed. GENERAL: Well-developed in no acute distress. NECK: Supple. No JVD or thyromegaly LUNGS: Respirations even and unlabored. Lungs essentially clear to auscultation bilaterally. HEART: Regular rate and rhythm. S1 and S2 heard. systolic murmur noted. EXTREMITIES: Normal range of motion. No clubbing or cyanosis. Peripheral pulses intact. No lower extremity edema ASSESSMENT: Status post mechanical fall Community acquired pneumonia New onset paroxysmal atrial fibrillation with RVR, currently maintaining sinus mechanism leukocytosis Acute kidney injury Elevated troponins, not suggestive of acute coronary syndrome Elevated CK Valvular heart disease, aortic stenosis and mitral regurgitation PLAN: Continue Eliquis. Case management consulted for insurance coverage Continue oral amiodarone Patient to follow up outpatient with Dr. Grande We will follow on an as-needed basis. Please call with questions or concerns Nurse practitioner note has been reviewed by physician. Signing provider agrees with the documented findings, assessment, and plan of care. Objective - Vital Signs Vital signs: Vital Signs Temp 97.7 F 05/05/21 08:00 Pulse 83 05/05/21 08:00 Resp 18 05/05/21 08:00 BP 138/85 05/05/21 08:00 Pulse Ox 99 05/05/21 08:00 Intake & Output 05/04/21 05/05/21 05/05/21 18:59 06:59 18:59 Intake Total 712 Output Total 1900 600 Balance -1188 -600 Weight 118 kg Intake: Oral 712 Output: Urine 1900 600 Uretheral (Harding) 1450 Other: Voiding Method Indwelling Catheter Indwelling Catheter Indwelling Catheter # Bowel Movements 1 - Labs CBC & Chem 7: 05/04/21 06:50 05/04/21 06:28 Labs: Abnormal Lab Results - Last 24 Hours (Table) 05/04/21 05/04/21 05/04/21 Range/Units 11:33 16:46 20:16 POC Glucose (mg/dL) 222 H 260 H 289 H (75-99) mg/dL 05/05/21 Range/Units 06:10 POC Glucose (mg/dL) 124 H (75-99) mg/dL Microbiology - Last 24 Hours (Table) 05/04/21 06:28 Blood Culture - Preliminary Blood No Growth after 24 hours 05/01/21 15:00 Blood Culture Gram Stain - Final Blood Blood Culture - Final Haemophilus influenzae 05/01/21 15:15 Blood Culture - Final Blood 05/01/21 15:15 Blood Culture Gram Stain - Preliminary Blood
[2021-05-05 11:45] LABS: Glucose,Whole Blood 245 mg/dL (75-99)
[2021-05-05] MEDS ORDERED: IPRATROPIUM-ALBUTEROL 3 ML NEB INHALATION PRN (12:51)
--- NOTE | 2021-05-05 12:59 | P.PN ---
Subjective Progress Note Date: 05/05/21 Principal diagnosis: Acute hypoxic respiratory failure related to pneumonia 05/05/2021 patient is seen in follow-up on selective care unit. Vision is awake and alert, in no acute distress, she states her breathing is slightly improved, but she still bronchospastic disease exam, no significant phlegm production, no fever or chills, hemodynamic stable, she is in sinus mechanism with a controlled rate, her current antibiotic coverage is with Rocephin, blood culture was posit tony for Haemophilus influenza, follow blood cultures have been negative thus far, most recent chest x-ray from yesterday showed multilevel patchy airspace opacities throughout the left lung suggestive of pneumonia with moderate left- sided pleural effusion. Today's lab 7 reviewed, with blood cell count is improving and is down to 13.2, hemoglobin is 10.3, final was improving, and creatinine was down to 1.19, BUN of 67, no nausea vomiting or diarrhea, patient is tolerating oral intake, no abdominal pain, generally she is weak, needs extensive assistance with repositioning in bed, sitting up Objective - Vital Signs Vital signs: Vital Signs Temp 97.7 F 05/05/21 08:00 Pulse 83 05/05/21 08:00 Resp 18 05/05/21 08:00 BP 138/85 05/05/21 08:00 Pulse Ox 99 05/05/21 08:00 Intake & Output 05/04/21 05/05/21 05/05/21 18:59 06:59 18:59 Intake Total 712 240 Output Total 1900 600 Balance -1188 -600 240 Weight 118 kg Intake: Oral 712 240 Output: Urine 1900 600 Uretheral (Harding) 1450 Other: Voiding Method Indwelling Catheter Indwelling Catheter Indwelling Catheter # Bowel Movements 1 - Exam GENERAL EXAM: Alert, pleasant, 85-year-old white female, on 3 L of oxygen comfortable in no apparent distress. HEAD: Normocephalic/atraumatic. EYES: Normal reaction of pupils, equal size. Conjunctiva pink, sclera white. NOSE: Clear with pink turbinates. THROAT: No erythema or exudates. NECK: No masses, no JVD, no thyroid enlargement, no adenopathy. CHEST: No chest wall deformity. Symmetrical expansion. LUNGS: Equal air entry with no crackles, wheeze, rhonchi or dullness. CVS: Regular rate and rhythm, normal S1 and S2, no gallops, systolic ejection murmur auscultated, no rubs ABDOMEN: Soft, nontender. No hepatosplenomegaly, normal bowel sounds, no guarding or rigidity. EXTREMITIES: No clubbing, no edema, no cyanosis, 2+ pulses and upper and lower extremities. MUSCULOSKELETAL: Muscle strength and tone normal. SPINE: No scoliosis or deformity SKIN: No rashes CENTRAL NERVOUS SYSTEM: Alert and oriented -3. No focal deficits, tone is normal in all 4 extremities. PSYCHIATRIC: Alert and oriented -3. Appropriate affect. Intact judgment and insight. - Labs CBC & Chem 7: 05/04/21 06:50 05/04/21 06:28 Labs: Abnormal Lab Results - Last 24 Hours (Table) 05/04/21 05/04/21 05/05/21 Range/Units 16:46 20:16 06:10 POC Glucose (mg/dL) 260 H 289 H 124 H (75-99) mg/dL 05/05/21 Range/Units 11:43 POC Glucose (mg/dL) 245 H (75-99) mg/dL Microbiology - Last 24 Hours (Table) 05/04/21 06:28 Blood Culture - Preliminary Blood No Growth after 24 hours 05/01/21 15:00 Blood Culture Gram Stain - Final Blood Blood Culture - Final Haemophilus influenzae 05/01/21 15:15 Blood Culture - Final Blood 05/01/21 15:15 Blood Culture Gram Stain - Preliminary Blood Assessment and Plan Plan: assessment: Community-acquired pneumonia, left lung. Acute development of atrial fibrillation with rapid ventricular response, now on amiodarone. Patient now in sinus rhythm. Blood cultures positive for Haemophilus influenzae. Status post fall. Weakness, secondary to diarrhea. History of diabetes mellitus. History of hypertension. History of hyperlipidemia. History of dementia/memory impairment. 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 Plan: Continue current antibiotic coverage Add DuoNeb 4 times a day and every 2 hours when necessary for shortness of breath and wheezing We will add Solu-Medrol 40 mg every 8 hours Follow-up labs and chest x-ray tomorrow not quite ready for discharge GI and DVT prophylaxis I performed a history & physical examination of the patient and discussed their management with my nurse practitioner, Kaylee Goodman. I reviewed the nurse practitioner's note and agree with the documented findings and plan of care. Lung sounds are positive for diffuse wheezes throughout the lung walker. The findings and the impression was discussed with the patient. I attest to the documentation by the nurse practitioner. Time with Patient: Less than 30
[2021-05-05] MEDS: IPRATROPIUM-ALBUTEROL 3 ML NEB INHALATION SCH ×2 (15:15→18:55)
--- NOTE | 2021-05-05 16:06 | P.PN ---
Subjective Progress Note Date: 05/05/21 This is an 85-year-old female admitted with acute hypoxic respiratory failure, pneumonia, new onset A. fib, weakness and multiple other medical issues. Anticoagulated on Eliquis. Continues on oral amiodarone. Telemetry sinus rhythm. Maintained on nebulized bronchodilators, steroids, Rocephin. Blood sug ars uncontrolled Blood cultures X 2 positive for Haemophilus influenza with preliminary follow-up blood cultures negative. Afebrile. Significant weakness, evaluated by PT recommending home care/[facility]. Maintaining O2 sats in the high 90s on 3 L nasal cannula which can be further titrated down. Objective - Vital Signs Vital signs: Vital Signs Temp 97.7 F 05/05/21 08:00 Pulse 88 05/05/21 15:29 Resp 18 05/05/21 13:24 BP 133/84 05/05/21 12:00 Pulse Ox 99 05/05/21 12:00 Intake & Output 05/04/21 05/05/21 05/05/21 18:59 06:59 18:59 Intake Total 712 240 Output Total 1900 600 450 Balance -1188 -600 -210 Weight 118 kg Intake: Oral 712 240 Output: Urine 1900 600 450 Uretheral (Harding) 1450 Other: Voiding Method Indwelling Catheter Indwelling Catheter Indwelling Catheter # Bowel Movements 1 - Exam - Exam PHYSICAL EXAMINATION: GENERAL: Alert and oriented 3, sitting up in bed, no acute distress. HEENT: Normocephalic. Neck is supple. Pupils reactive. Oral mucosa moist. Neck: Supple, no JVD CHEST EXAMINATION: Equal air entry. No wheezing or rhonchi.. CARDIAC: Normal S1, S2 with no gallops. Systolic murmur ABDOMEN: Soft. Bowel sounds normal. No organomegaly. Extremities: no edema. No clubbing or cyanosis Neurologically: No focal deficits noted Skin: No rash, warm and dry - Labs CBC & Chem 7: 05/04/21 06:50 05/04/21 06:28 Labs: Abnormal Lab Results - Last 24 Hours (Table) 05/04/21 05/04/21 05/05/21 Range/Units 16:46 20:16 06:10 POC Glucose (mg/dL) 260 H 289 H 124 H (75-99) mg/dL 05/05/21 Range/Units 11:43 POC Glucose (mg/dL) 245 H (75-99) mg/dL Microbiology - Last 24 Hours (Table) 05/01/21 15:15 Blood Culture Gram Stain - Final Blood Blood Culture - Final Haemophilus influenzae 05/04/21 06:28 Blood Culture - Preliminary Blood No Growth after 24 hours 05/01/21 15:00 Blood Culture Gram Stain - Final Blood Blood Culture - Final Haemophilus influenzae 05/01/21 15:15 Blood Culture - Final Blood Assessment and Plan Assessment: Status post fall. Patient slipped while coming out of the shower. Left lower lobe pneumonia, community-acquired. Blood cultures reporting Haemophilus influenza Sepsis secondary above New onset A. fib with RVR. Elevated troponin level. Possible type II OK.. [id number]-fw-[id number] mitral regurgitation and moderate aortic stenosis Hyperglycemia with uncontrolled diabetes type 2. 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 Improving. Osteoarthritis Mild cognitive impairment Plan: Continue on current medication regime ,monitoring and symptomatic treatment. Oxygen titration in progress. Antibiotics as per ID. Repeat blood cultures in progress. Aggressive pulmonary toileting, continue nebulized bronchodilators, IV steroids. Levemir dosing increased to twice a day, close monitoring of Accu-Cheks. PT. Discharge planning in progress possibly tomorrow for either home with daughter versus ECF pending further PT evaluations. The impression and plan of care has been dictated as directed. : I performed a history and examination of this patient, discussed the same with the dictator. I agree with the dictator's note ,documented as a scribe. Any additional findings or plans will be noted.
[2021-05-05 16:44] LABS: Glucose,Whole Blood 203 mg/dL (75-99)
[2021-05-05] MEDS: methylPREDNISolone SOD SUCCI 40 MG/ML 1 ML VIAL IV SCH ×2 (17:05→23:29)
[2021-05-05] MEDS: FAMOTIDINE 20 MG TAB PO SCH (20:02)
[2021-05-05] MEDS: ATORVASTATIN 10 MG TAB PO SCH (20:02)
[2021-05-05 20:18] LABS: Glucose,Whole Blood 252 mg/dL (75-99)
[2021-05-05] MEDS: INSULIN DETEMIR (LEVEMIR) 100 UNIT/ML SYR SQ SCH (21:35)
--- NOTE | 2021-05-05 22:38 | P.CONS ---
History of Present Illness - Reason for Consult Consult date: 05/05/21 Bacteremia Requesting physician: Summer Gallardo - Chief Complaint weakness x few days - History of Present Illness Patient is a 85-year female presented to the hospital on 05/01/2021 after apparently patient did have a fall while trying to get out of the shower patient was only about 3 feet off almost 3 hours before the patient was found by the family EMS was called and and the patient was brought to the hospital on presentation to the hospital the patient was afebrile did have elevated white count patient did have a CT of the chest abdominal pelvis with evidence of large left lower lobe pneumonia patient has been treated with Rocephin and Zithromax with a blood culture finalized with Haemophilus infectious disease was consulted today for further management of antibiotic therapy at the time my evaluation the patient denies having any fever or any chills, the patient complaining of feeling weak and no energy, patient denies having any chest pain or shortness of but she did have a cough mild to moderate intensity but is unable to cough up any sputum patient denies any nausea no vomiting no chills no before no abdominal pain and no diarrhea Review of Systems Positive point has been mentioned in the HPI rest of the systems are negative Past Medical History Past Medical History: Diabetes Mellitus Additional Past Medical History / Comment(s): TB in 1954 History of Any Multi-Drug Resistant Organisms: None Reported Past Surgical History: Hysterectomy Additional Past Surgical History / Comment(s): Lung Past Anesthesia/Blood Transfusion Reactions: No Reported Reaction Past Psychological History: No Psychological Hx Reported Smoking Status: Former smoker Past Alcohol Use History: None Reported, Rare Past Drug Use History: None Reported Medications and Allergies Home Medications Medication Instructions Recorded Confirmed Type glipiZIDE [Glipizide] 10 mg PO DAILY@0800 04/15/17 05/01/21 History Acetaminophen Tab [Tylenol Tab] 500 mg PO Q6H 05/01/21 05/01/21 History Aspirin EC [Ecotrin Low Dose] 81 mg PO DAILY PRN 05/01/21 05/01/21 History Losartan Potassium [Cozaar] 25 mg PO DAILY 05/01/21 05/01/21 History Lovastatin [Mevacor] 20 mg PO HS 05/01/21 05/01/21 History Memantine [Namenda] 10 mg PO BID 05/01/21 05/01/21 History metFORMIN HCL ER [Glucophage Xr] 500 mg PO DAILY 05/01/21 05/01/21 History Apixaban [Eliquis] 5 mg PO BID #60 tab 05/05/21 Rx Allergies Allergy/AdvReac Type Severity Reaction Status Date / Time Sulfa (Sulfonamide Allergy Rash/Hives Verified 05/01/21 14:44 Antibiotics) Physical Exam Vitals: Vital Signs Temp Pulse Resp BP Pulse Ox 05/05/21 08:00 97.7 F 83 18 138/85 99 05/05/21 04:00 97.9 F 81 20 155/65 96 05/05/21 00:00 96 18 162/93 95 05/04/21 20:00 97.6 F 102 H 18 147/96 96 05/04/21 16:00 98 18 162/71 95 05/04/21 12:00 107 H 18 156/67 98 Intake and Output 05/04/21 05/05/21 05/05/21 22:59 06:59 14:59 Intake Total 236 Output Total 1000 600 Balance -764 -600 Intake: Oral 236 Output: Urine 1000 600 Uretheral (Harding) 1000 Other: Voiding Method Indwelling Catheter Indwelling Catheter Indwelling Catheter # Bowel Movements 1 Weight 118 kg GENERAL DESCRIPTION: Elderly female lying in bed, no distress. No tachypnea or accessory muscle of respiration use. HEENT: Shows Pallor , no scleral icterus. Oral mucous membrane is dry. No pharyngeal erythema or thrush NECK: Trachea central, no thyromegaly. LUNGS: Unlabored breathing. Decreased breath sounds at the base. No wheeze or crackle. HEART: S1, S2, regular rate and rhythm. No loud murmur ABDOMEN: Soft, no tenderness , guarding or rigidity, no organomegaly EXTREMITIES: No edema of feet. SKIN: No rash, no masses palpable. NEUROLOGICAL: The patient is awake, alert, oriented x3, mood and affect normal. Results CBC & Chem 7: 05/04/21 06:50 05/04/21 06:28 Labs: Abnormal Lab Results - Last 24 Hours (Table) 05/04/21 05/04/21 05/04/21 Range/Units 11:33 16:46 20:16 POC Glucose (mg/dL) 222 H 260 H 289 H (75-99) mg/dL 05/05/21 Range/Units 06:10 POC Glucose (mg/dL) 124 H (75-99) mg/dL Microbiology - Last 24 Hours (Table) 05/04/21 06:28 Blood Culture - Preliminary Blood No Growth after 24 hours 05/01/21 15:00 Blood Culture Gram Stain - Final Blood Blood Culture - Final Haemophilus influenzae 05/01/21 15:15 Blood Culture - Final Blood 05/01/21 15:15 Blood Culture Gram Stain - Preliminary Blood Assessment and Plan Assessment: Patient with Haemophilus bacteremia source likely left lower lobe pneumonia community-acquired and more likely Rocephin sensitive pathogen as the patient seem to have shown overall clinical improvement since being admitted to the hospital. And no other obvious focus for this bacteremia (1) Gram-negative bacteremia Current Visit: Yes Status: Acute Code(s): R78.81 - BACTEREMIA SNOMED Code(s): 332881048757 (2) Haemophilus influenzae pneumonia Current Visit: Yes Status: Acute Code(s): J14 - PNEUMONIA DUE TO HEMOPHILUS INFLUENZAE SNOMED Code(s): 27860239 (3) Pneumonia Current Visit: Yes Status: Acute Code(s): J18.9 - PNEUMONIA, UNSPECIFIED ORGANISM SNOMED Code(s): 604461566 Plan: 1-we will increase the dose of Rocephin to 2 g IV daily 2-discontinue Zithromax 3-gentle IV fluid We will follow on clinical condition and cultures to further adjust medication if needed Thank you for this consultation we will follow the patient along with you Time with Patient: Greater than 30
[2021-05-06 06:19] LABS: Glucose,Whole Blood 288 mg/dL (75-99)
[2021-05-06] MEDS ORDERED: INSULIN DETEMIR (LEVEMIR) 100 UNIT/ML SYR SQ SCH (07:00)
[2021-05-06 07:01] LABS: Glucose,Whole Blood 296 mg/dL (75-99)
[2021-05-06] MEDS: INSULIN ASPART (NovoLOG) 100 UNIT/ML VIAL SQ SCH ×4 (07:06→20:35)
[2021-05-06 07:43] LABS: African American GFR (CKD) >90 (>60 ml/min/1.73 sqM); Anion Gap 11 mmol/L; Blood Urea Nitrogen 34 mg/dL (7-17); Calcium 9.7 mg/dL (8.4-10.2); Carbon Dioxide 23 mmol/L (22-30); Chloride 105 mmol/L (98-107); Creatine Kinase 61 U/L (30-135); Glucose 296 mg/dL (74-99); Magnesium 1.5 mg/dL (1.6-2.3); Non-African American GFR(CKD) 79 (>60 ml/min/1.73 sqM); Potassium 4.5 mmol/L (3.5-5.1); Sodium 139 mmol/L (137-145)
[2021-05-06] MEDS: IPRATROPIUM-ALBUTEROL 3 ML NEB INHALATION SCH ×4 (07:46→19:35)
[2021-05-06 08:01] LABS: Basophils % (A) 1 %; Eosinophils % (A) 0 %; HCT 33.5 % (34.0-46.0); HGB 11.1 gm/dL (11.4-16.0); Lymphocytes # (A) 0.6 k/uL (1.0-4.8); Lymphocytes % (A) 6 %; MCHC 33.3 g/dL (31.0-37.0); MCV 93.1 fL (80.0-100.0); Mean Platelet Volume 9.9; Monocytes # (A) 0.3 k/uL (0-1.0); Monocytes % (A) 3 %; Neutrophils # (A) 7.6 k/uL (1.3-7.7); Neutrophils % (A) 89 %; Platelet Count 282 k/uL (150-450); RDW 13.1 % (11.5-15.5); WBC 8.6 k/uL (3.8-10.6)
[2021-05-06] MEDS: AMIODARONE 200 MG TAB PO SCH ×2 (08:09→20:36)
[2021-05-06] MEDS: methylPREDNISolone SOD SUCCI 40 MG/ML 1 ML VIAL IV SCH ×2 (08:09→17:06)
[2021-05-06] MEDS: MEMANTINE 5 MG TAB PO SCH ×2 (08:10→20:36)
[2021-05-06] MEDS: APIXABAN 5 MG TAB PO SCH ×2 (08:10→20:36)
[2021-05-06] MEDS: LOSARTAN 25 MG TAB PO SCH (08:10)
[2021-05-06 11:54] LABS: Glucose,Whole Blood 306 mg/dL (75-99)
[2021-05-06] MEDS ORDERED: INSULIN DETEMIR (LEVEMIR) 100 UNIT/ML SYR SQ ONE (13:08)
--- NOTE | 2021-05-06 13:17 | P.DS ---
Providers Date of admission: 05/01/21 15:11 Expected date of discharge: 05/06/21 Attending physician: Ja Stevenson Consults: 05/01/21 15:05 Consult Physician Routine Consulting Provider: Anand Cordero Consult Reason/Comments: Pneumonia Do you want consulting provider notified?: Yes 05/05/21 10:34 Consult Physician Routine Consulting Provider: Lois Barajas Consult Reason/Comments: Bacteremia Do you want consulting provider notified?: Yes Primary care physician: Ja Stevenson Hospital Course: Final Diagnoses: Status post fall. Patient slipped while coming out of the shower. Left lower lobe pneumonia, community-acquired. Haemophilus influenza bacteremia Sepsis secondary above New onset A. fib with RVR. Elevated troponin level. 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 [id number] mitral regurgitation and moderate aortic stenosis Hyperglycemia with uncontrolled diabetes type 2. 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 Improving. Osteoarthritis Mild cognitive impairment Hospital course:This is an 85-year-old female admitted with acute hypoxic respiratory failure, pneumonia, new onset A. fib, weakness and multiple other medical issues. Anticoagulated on Eliquis. Continues on oral amiodarone. Telemetry sinus rhythm. Maintained on nebulized bronchodilators, steroids, Rocephin. Blood sugars uncontrolled Blood cultures X 2 positive for Haemophilus influenza with preliminary follow-up blood cultures negative. Afebrile. Significant weakness, evaluated by PT recommending home care/[facility]. Maintaining O2 sats in the high 90s on 3 L nasal cannula which can be further titrated down. Significant clinical improvement. Patient has been cleared by pulmonary for discharge. Patient will be discharged to [facility] subacute rehab today in stable condition with her prognosis pending discharge recommendations/antibiotics and clearance from ID. Microbiology 05/04/21 06:28 Blood Blood Culture - Preliminary No Growth after 48 hours 05/01/21 15:15 Blood Blood Culture Gram Stain - Final 05/01/21 15:15 Blood Blood Culture - Final Haemophilus influenzae 05/01/21 15:00 Blood Blood Culture Gram Stain - Final 05/01/21 15:00 Blood Blood Culture - Final Haemophilus influenzae 05/01/21 15:15 Blood Blood Culture - Final 05/01/21 15:00 Blood Blood Culture - Final The impression and plan of care has been dictated as directed. : I performed a history and examination of this patient, discussed the same with the dictator. I agree with the dictator's note ,documented as a scribe. Any additional findings or plans will be noted. Patient Condition at Discharge: Stable Plan - Discharge Summary Discharge Rx Participant: Yes New Discharge Prescriptions: New Apixaban [Eliquis] 5 mg PO BID #60 tab Ipratropium-Albuterol Nebulize [Duoneb 0.5 mg-3 mg/3 ml Soln] 3 ml INHALATION Q4H PRN ml PRN Reason: Shortness Of Breath Or Wheezing INSULIN LISPRO (HumaLOG) [humaLOG] 0 unit SQ ACHS #1 vial Insulin Detemir (Levemir) [Levemir] 15 unit SQ HS syr predniSONE 10 mg PO DIRECTED #30 tab Insulin Detemir (Levemir) [Levemir] 15 unit SQ DAILY #1 vial Amiodarone [Cordarone] 200 mg PO BID #180 tab Ipratropium-Albuterol Nebulize [Duoneb 0.5 mg-3 mg/3 ml Soln] 3 ml INHALATION RT-QID ml Famotidine [Pepcid] 20 mg PO HS tab Continue glipiZIDE [Glipizide] 10 mg PO DAILY@0800 metFORMIN HCL ER [Glucophage Xr] 500 mg PO DAILY Losartan Potassium [Cozaar] 25 mg PO DAILY Aspirin EC [Ecotrin Low Dose] 81 mg PO DAILY PRN PRN Reason: Pain Acetaminophen Tab [Tylenol] 500 mg PO Q6H Memantine [Namenda] 10 mg PO BID Lovastatin [Mevacor] 20 mg PO HS Discharge Medication List glipiZIDE [Glipizide] 10 mg PO DAILY@0800 04/15/17 [History] Acetaminophen Tab [Tylenol] 500 mg PO Q6H 05/01/21 [History] Aspirin EC [Ecotrin Low Dose] 81 mg PO DAILY PRN 05/01/21 [History] Losartan Potassium [Cozaar] 25 mg PO DAILY 05/01/21 [History] Lovastatin [Mevacor] 20 mg PO HS 05/01/21 [History] Memantine [Namenda] 10 mg PO BID 05/01/21 [History] metFORMIN HCL ER [Glucophage Xr] 500 mg PO DAILY 05/01/21 [History] Apixaban [Eliquis] 5 mg PO BID #60 tab 05/05/21 [Rx] Amiodarone [Cordarone] 200 mg PO BID #180 tab 05/06/21 [Rx] Famotidine [Pepcid] 20 mg PO HS tab 05/06/21 [Rx] INSULIN LISPRO (HumaLOG) [humaLOG] 0 unit SQ ACHS #1 vial 05/06/21 [Rx] Insulin Detemir (Levemir) [Levemir] 15 unit SQ DAILY #1 vial 05/06/21 [Rx] Insulin Detemir (Levemir) [Levemir] 15 unit SQ HS syr 05/06/21 [Rx] Ipratropium-Albuterol Nebulize [Duoneb 0.5 mg-3 mg/3 ml Soln] 3 ml INHALATION Q4H PRN ml 05/06/21 [Rx] Ipratropium-Albuterol Nebulize [Duoneb 0.5 mg-3 mg/3 ml Soln] 3 ml INHALATION RT-QID ml 05/06/21 [Rx] predniSONE 10 mg PO DIRECTED #30 tab 05/06/21 [Rx] Follow up Appointment(s)/Referral(s): Ja Stevenson DO [Primary Care Provider] - 1 Week (After discharge from subacute rehab) Anand Cordero DO [Doctor of Osteopathic Medicine] - 2 Weeks Activity/Diet/Wound Care/Special Instructions: Pending final DC recommendations/antibiotics and clearance from ID. Diet: Consistent carb CBC, BMP in 3 days Discharge Disposition: TRANSFER TO SNF/ECF
--- NOTE | 2021-05-06 14:31 | P.PN ---
Subjective Progress Note Date: 05/06/21 05/06/2021, the patient is being seen for a follow-up. She is quite comfortable changes on room air oxygen. No respiratory difficulties. No fever or chills. She has an Haemophilus influenza bacteremia and the patient the possible culture and this is thought to be related underlying pneumonia. No respiratory difficulties. No nausea. No vomiting. No diarrhea. No abdominal pain. The white cell count is at 8.6 with a hemoglobin of 11. Abnormal renal function. Note that 2 of the blood cultures that were obtained from the admission on 05/01/2021 were positive for Haemophilus influenza. Subsequent blood cultures from 05/04/2021 was negative. The patient remains on IV Rocephin. The patient is receiving 2 g of Rocephin every 24 hours. The patient is also on Levemir insulin 15 units along with Effexor coverage. She is on Solu-Medrol 40 mg every 8 hours and DuoNeb nebulized treatments [id number]. Objective - Vital Signs Vital signs: Vital Signs Temp 98.3 F 05/06/21 08:00 Pulse 86 05/06/21 11:54 Resp 16 05/06/21 11:41 BP 128/59 05/06/21 11:41 Pulse Ox 93 L 05/06/21 11:41 Intake & Output 05/05/21 05/06/21 05/06/21 18:59 06:59 18:59 Intake Total 480 300 280 Output Total 950 1950 400 Balance -470 -1650 -120 Weight 74.9 kg Intake: Oral 480 300 280 Output: Urine 950 1950 400 Other: Voiding Method Indwelling Catheter Indwelling Catheter Indwelling Catheter # Bowel Movements 1 1 - Exam GENERAL EXAM: Alert, pleasant, 85-year-old white female, on room air oxygen and the patient's breathing is nonlabored. HEAD: Normocephalic/atraumatic. EYES: Normal reaction of pupils, equal size. Conjunctiva pink, sclera white. NOSE: Clear with pink turbinates. THROAT: No erythema or exudates. NECK: No masses, no JVD, no thyroid enlargement, no adenopathy. CHEST: No chest wall deformity. Symmetrical expansion. LUNGS: Equal air entry with no crackles, wheeze, rhonchi or dullness. CVS: Regular rate and rhythm, normal S1 and S2, no gallops, systolic ejection murmur auscultated, no rubs ABDOMEN: Soft, nontender. No hepatosplenomegaly, normal bowel sounds, no guarding or rigidity. EXTREMITIES: No clubbing, no edema, no cyanosis, 2+ pulses and upper and lower extremities. MUSCULOSKELETAL: Muscle strength and tone normal. SPINE: No scoliosis or deformity SKIN: No rashes CENTRAL NERVOUS SYSTEM: Alert and oriented -3. No focal deficits, tone is normal in all 4 extremities. PSYCHIATRIC: Alert and oriented -3. Appropriate affect. Intact judgment and insight. - Labs CBC & Chem 7: 05/06/21 06:56 05/06/21 06:56 Labs: Abnormal Lab Results - Last 24 Hours (Table) 05/05/21 05/05/21 05/06/21 Range/Units 16:42 20:16 06:17 RBC (3.80-5.40) m/uL Hgb (11.4-16.0) gm/dL Hct (34.0-46.0) % Lymphocytes # (1.0-4.8) k/uL BUN (7-17) mg/dL Glucose (74-99) mg/dL POC Glucose (mg/dL) 203 H 252 H 288 H (75-99) mg/dL Magnesium (1.6-2.3) mg/dL 05/06/21 05/06/21 05/06/21 Range/Units 06:56 06:56 06:59 RBC 3.60 L (3.80-5.40) m/uL Hgb 11.1 L (11.4-16.0) gm/dL Hct 33.5 L (34.0-46.0) % Lymphocytes # 0.6 L (1.0-4.8) k/uL BUN 34 H (7-17) mg/dL Glucose 296 H (74-99) mg/dL POC Glucose (mg/dL) 296 H (75-99) mg/dL Magnesium 1.5 L (1.6-2.3) mg/dL 05/06/21 Range/Units 11:52 RBC (3.80-5.40) m/uL Hgb (11.4-16.0) gm/dL Hct (34.0-46.0) % Lymphocytes # (1.0-4.8) k/uL BUN (7-17) mg/dL Glucose (74-99) mg/dL POC Glucose (mg/dL) 306 H (75-99) mg/dL Magnesium (1.6-2.3) mg/dL Microbiology - Last 24 Hours (Table) 05/04/21 06:28 Blood Culture - Preliminary Blood No Growth after 48 hours 05/01/21 15:15 Blood Culture Gram Stain - Final Blood Blood Culture - Final Haemophilus influenzae Assessment and Plan Plan: 1 Community-acquired pneumonia, left lung, with secondary bacteremia/sepsis related to Haemophilus influenza. Patient is currently on Rocephin 2 g every 24 hours. 2 acute hypoxic respiratory failure, recovered and the patient's x-ray shows improvement and the patient is on room air oxygen for now 3 atrial fibrillation with RVR currently back to normal sinus 4 Status post fall. 5 Weakness, secondary to diarrhea, improved 6 History of diabetes mellitus. 7 History of hypertension. 8 History of hyperlipidemia. 9 History of dementia/memory impairment. 10 History of tuberculosis, 1955. Plan: Continue current antibiotic coverage Add DuoNeb 4 times a day plus when necessary Continued IV Solu Medrol for another 24 hours Continue IV Rocephin 2 g every 24 hours Discharge planning is in progress Follow-up blood cultures been negative GI and DVT prophylaxis
--- NOTE | 2021-05-06 16:36 | PN ---
PROGRESS NOTE DATE OF SERVICE: 05/06/2021 REASON FOR FOLLOW UP: Haemophilus influenzae bacteremia pneumonia. INTERVAL HISTORY: Patient is afebrile. The patient is breathing slightly comfortably. Denies having any chest pain. Did have a cough, not bringing up any sputum. No abdominal pain or diarrhea. PHYSICAL EXAMINATION: Blood pressure 128/59, pulse of 80, temperature 98.3. She is 93% on room air. General description is an elderly female up in the bed in no distress. Respiratory system: Unlabored breathing. Coarse crackles at the left base. No wheeze. Heart S1, S2. Regular rate and rhythm. Abdomen soft. No tenderness. Extremities: No edema of the feet. LAB: Hemoglobin 11.1, white count 8.6, BUN of 34, creatinine 0.68. DIAGNOSTIC IMPRESSION AND PLAN: Patient with Haemophilus influenzae bacteremia, source is likely pneumonia. Overall improvement on Rocephin. Finishing therapy with oral Ceftin 500 mg twice a day for another 10 days with close outpatient followup. MMODL / IJN: [id number] /
[2021-05-06 16:42] LABS: Glucose,Whole Blood 404 mg/dL (75-99)
[2021-05-06 20:05] LABS: Glucose,Whole Blood 399 mg/dL (75-99)
[2021-05-06] MEDS: ATORVASTATIN 10 MG TAB PO SCH (20:36)
[2021-05-06] MEDS: INSULIN DETEMIR (LEVEMIR) 100 UNIT/ML SYR SQ SCH (20:36)
[2021-05-06] MEDS: FAMOTIDINE 20 MG TAB PO SCH (20:36)
[2021-05-07] MEDS: methylPREDNISolone SOD SUCCI 40 MG/ML 1 ML VIAL IV SCH ×2 (00:02→07:59)
[2021-05-07] MEDS: ALPRAZolam 0.25 MG TAB PO PRN ×2 (00:02→20:09)
[2021-05-07] MEDS ORDERED: INSULIN DETEMIR (LEVEMIR) 100 UNIT/ML SYR SQ SCH (07:00)
[2021-05-07 07:17] LABS: Glucose,Whole Blood 342 mg/dL (75-99)
[2021-05-07] MEDS: INSULIN ASPART (NovoLOG) 100 UNIT/ML VIAL SQ SCH ×4 (07:42→22:03)
[2021-05-07] MEDS: APIXABAN 5 MG TAB PO SCH ×2 (07:59→20:09)
[2021-05-07] MEDS: AMIODARONE 200 MG TAB PO SCH ×2 (07:59→20:09)
[2021-05-07] MEDS: MEMANTINE 5 MG TAB PO SCH ×2 (07:59→20:09)
[2021-05-07] MEDS: LOSARTAN 25 MG TAB PO SCH (07:59)
[2021-05-07 08:20] LABS: Basophils # (A) 0.1 k/uL (0-0.2); Basophils % (A) 0 %; Eosinophils % (A) 0 %; HCT 34.3 % (34.0-46.0); HGB 11.3 gm/dL (11.4-16.0); Lymphocytes # (A) 0.6 k/uL (1.0-4.8); Lymphocytes % (A) 4 %; MCH 30.8 pg (25.0-35.0); MCV 93.3 fL (80.0-100.0); Mean Platelet Volume 9.5; Monocytes # (A) 0.4 k/uL (0-1.0); Monocytes % (A) 3 %; Neutrophils # (A) 13.4 k/uL (1.3-7.7); Neutrophils % (A) 92 %; Platelet Count 365 k/uL (150-450); RBC 3.68 m/uL (3.80-5.40); RDW 13.3 % (11.5-15.5); WBC 14.7 k/uL (3.8-10.6)
[2021-05-07 08:34] LABS: Calcium 9.7 mg/dL (8.4-10.2); Magnesium 1.5 mg/dL (1.6-2.3); Potassium 4.7 mmol/L (3.5-5.1)
[2021-05-07] MEDS: IPRATROPIUM-ALBUTEROL 3 ML NEB INHALATION SCH ×4 (08:44→19:25)
[2021-05-07] MEDS: MAGNESIUM SULFATE-D5W PMX 1 GM in DEXTROSE/WATER 1 100ML.BAG IVPB SCH ×2 (11:07→12:40)
--- NOTE | 2021-05-07 11:40 | P.PN ---
Subjective Progress Note Date: 05/07/21 Principal diagnosis: Acute hypoxic respiratory failure related to pneumonia 05/05/2021 patient is seen in follow-up on selective care unit. Patient is awake and alert, in no acute distress, she states her breathing is slightly improved, but she still bronchospastic disease exam, no significant phlegm production, no fever or chills, hemodynamic stable, she is in sinus mechanism with a controlled rate, her current antibiotic coverage is with Rocephin, blood culture was positive for Haemophilus influenza, follow blood cultures have been negative thus far, most recent chest x-ray from yesterday showed multilevel patchy airspace opacities throughout the left lung suggestive of pneumonia with moderate left-sided pleural effusion. Today's lab 7 reviewed, with blood cell c ount is improving and is down to 13.2, hemoglobin is 10.3, final was improving, and creatinine was down to 1.19, BUN of 67, no nausea vomiting or diarrhea, patient is tolerating oral intake, no abdominal pain, generally she is weak, needs extensive assistance with repositioning in bed, sitting up On 05/07/2001 patient seen in follow-up on selective care unit, she is awake and alert, oriented 3, in no acute distress, breathing comfortably, room air pulse ox 91-94%, she's had no acute events overnight. She states she is breathing much easier, she's been up out of bed, to the commode, tolerating activity well. No worsening dyspnea, no worsening cough or wheezing. Today's labs have been reviewed, white blood cell count is 14.7, hemoglobin is 11.3, electrolytes are within normal limits, BUN is 41, creatinine 0.83. She remains on IV Rocephin for evidence of Haemophilus influenza in the blood cultures. Follow blood cultures have shown no growth at 72 hours. COVID-19 PCR was negative. Vital signs have been stable, she's had no fever or chills. Objective - Vital Signs Vital signs: Vital Signs Temp 98.0 F 05/07/21 07:48 Pulse 60 05/07/21 08:57 Resp 16 05/07/21 08:57 BP 136/81 05/07/21 07:48 Pulse Ox 94 L 05/07/21 08:45 Intake & Output 05/06/21 05/07/21 05/07/21 18:59 06:59 18:59 Intake Total 810 100 480 Output Total 725 925 Balance 85 -825 480 Weight 105 kg Intake: Intake, IV Titration 50 Amount cefTRIAXone 2 gm In 50 Sodium Chloride 0.9% 50 ml @ 100 mls/hr IVPB Q24HR [facility] Rx#:[id number] Oral 760 100 480 Output: Urine 725 925 Other: Voiding Method Indwelling Catheter Indwelling Catheter Indwelling Catheter # Voids 500 # Bowel Movements 1 1 - Exam GENERAL EXAM: Alert, pleasant, 85-year-old white female, on room air with pulse ox of 94% comfortable in no apparent distress. HEAD: Normocephalic/atraumatic. EYES: Normal reaction of pupils, equal size. Conjunctiva pink, sclera white. NOSE: Clear with pink turbinates. THROAT: No erythema or exudates. NECK: No masses, no JVD, no thyroid enlargement, no adenopathy. CHEST: No chest wall deformity. Symmetrical expansion. LUNGS: Equal air entry with no crackles, wheeze, rhonchi or dullness. CVS: Regular rate and rhythm, normal S1 and S2, no gallops, systolic ejection murmur auscultated, no rubs ABDOMEN: Soft, nontender. No hepatosplenomegaly, normal bowel sounds, no guarding or rigidity. EXTREMITIES: No clubbing, no edema, no cyanosis, 2+ pulses and upper and lower extremities. MUSCULOSKELETAL: Muscle strength and tone normal. SPINE: No scoliosis or deformity SKIN: No rashes CENTRAL NERVOUS SYSTEM: Alert and oriented -3. No focal deficits, tone is normal in all 4 extremities. PSYCHIATRIC: Alert and oriented -3. Appropriate affect. Intact judgment and insight. - Labs CBC & Chem 7: 05/07/21 07:07 05/07/21 07:07 Labs: Abnormal Lab Results - Last 24 Hours (Table) 05/06/21 05/06/21 05/06/21 Range/Units 11:52 16:40 20:03 WBC (3.8-10.6) k/uL RBC (3.80-5.40) m/uL Hgb (11.4-16.0) gm/dL Neutrophils # (1.3-7.7) k/uL Lymphocytes # (1.0-4.8) k/uL BUN (7-17) mg/dL Glucose (74-99) mg/dL POC Glucose (mg/dL) 306 H 404 H 399 H (75-99) mg/dL Magnesium (1.6-2.3) mg/dL 05/07/21 05/07/21 05/07/21 Range/Units 07:07 07:07 07:15 WBC 14.7 H (3.8-10.6) k/uL RBC 3.68 L (3.80-5.40) m/uL Hgb 11.3 L (11.4-16.0) gm/dL Neutrophils # 13.4 H (1.3-7.7) k/uL Lymphocytes # 0.6 L (1.0-4.8) k/uL BUN 41 H (7-17) mg/dL Glucose 323 H (74-99) mg/dL POC Glucose (mg/dL) 342 H (75-99) mg/dL Magnesium 1.5 L (1.6-2.3) mg/dL Microbiology - Last 24 Hours (Table) 05/04/21 06:28 Blood Culture - Preliminary Blood No Growth after 72 hours Assessment and Plan Plan: assessment: Community-acquired pneumonia, left lung. Acute development of atrial fibrillation with rapid ventricular response, now on amiodarone. Patient now in sinus rhythm. Blood cultures positive for Haemophilus influenzae. Status post fall. Weakness, secondary to diarrhea. History of diabetes mellitus. History of hypertension. History of hyperlipidemia. History of dementia/memory impairment. 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 Plan: Patient is breathing stable She is maintaining stable O2 saturations on room air Vital signs have been stable, no fever or chills Follow blood cultures have shown no growth From pulmonary perspective she is clear for discharge to ECF today on oral Ceftin per ID service recommendation I performed a history & physical examination of the patient and discussed their management with my nurse practitioner, Kaylee Goodman. I reviewed the nurse practitioner's note and agree with the documented findings and plan of care. Lung sounds are positive for diffuse wheezes throughout the lung walker. The findings and the impression was discussed with the patient. I attest to the documentation by the nurse practitioner. Time with Patient: Less than 30
[2021-05-07 11:54] LABS: Glucose,Whole Blood 367 mg/dL (75-99)
--- NOTE | 2021-05-07 15:48 | PN ---
PROGRESS NOTE DATE OF SERVICE: 05/07/2021 REASON FOR FOLLOWUP: Possible influenza bacteremia and pneumonia. INTERVAL HISTORY: Patient is afebrile. The patient is breathing comfortably. The patient denies having any chest pain, shortness of breath. Occasional cough. No abdominal pain. No diarrhea. PHYSICAL EXAMINATION: Her blood pressure is 146/74 with a pulse of 85. Temperature is 98. 93% on room air. General description is an elderly female up in the bed in no distress. Respiratory system: Unlabored breathing. A few coarse crackles at the left base. No wheeze. Heart S1, S2. Regular rate and rhythm. Abdomen soft, no tenderness. LABS: White count slightly up today at 14.7. DIAGNOSTIC IMPRESSION AND PLAN: Patient with haemophilus bacteremia, source is left lower lobe pneumonia. White count slightly up more likely steroid effect, which has been discontinued. Continue Rocephin. Finish therapy with oral Ceftin. Continue supportive care. MMODL / IJN: [id number] /
[2021-05-07 16:57] LABS: Glucose,Whole Blood 390 mg/dL (75-99)
[2021-05-07 19:38] LABS: Glucose,Whole Blood 387 mg/dL (75-99)
[2021-05-07] MEDS: ATORVASTATIN 10 MG TAB PO SCH (20:09)
[2021-05-07] MEDS: FAMOTIDINE 20 MG TAB PO SCH (20:09)
[2021-05-07] MEDS: INSULIN DETEMIR (LEVEMIR) 100 UNIT/ML SYR SQ SCH (22:04)
--- NOTE | 2021-05-07 23:37 | P.PN ---
Subjective Progress Note Date: 05/07/21 Principal diagnosis: Left lower lobe pneumonia Sepsis secondary to above Elevated troponin level New onset atrial fibrillation with aberrant Right Acute kidney improvement. Patient is a 85-year-old female with a known history of diabetes type 2, mild cognitive impairment was brought to the hospital by EMS. Patient states that she had a fall at her home' She woke up in the morning and went to the shower. While getting out of the shower she and fell and struck in between the toilet and shower. She laid the for about couple hours. Finally she was able to call her family, who called EMS and was brought to the hospital. Patient was found to have blood sugar in 400s which is unusual for her. She has been having generalized weakness. Patient also states that she did have diarrhea for the past week 1-2 episodes. Patient lives by herself at home. No complaints of chest pain or shortness of breath. No nausea vomiting abdominal pain or diarrhea. No headache or dizzi ness lightheadedness. No fever no chills. Denies any recent illnesses. On admission patient was tachycardic with heart rate 112, blood pressure 128/78 pulse ox 98% on room air and patient has been afebrile. CT head and cervical spine showed age-related atrophic and chronic small vessel ischemic changes without any acute intracranial process. CT of the cervical spine showed no evidence of acute fracture or subluxation of the cervical spine. Pelvic x-ray showed no evidence of fracture. Degenerative changes of the bilateral hips left greater than right. Chest x-ray showed diffuse left-sided areas of infiltrate in the setting of trauma could be on the basis of pulmonary contusion correlate to exclude pneumonia asymmetric edema. CT of the abdomen pelvis and chest showed large area of airspace consolidation left lower lobe. EKG showed sinus tachycardia with occasional PVCs. Laboratory data showed WBC 15.3, hemoglobin 10.9 and platelets 180 sodium 137 potassium 4.1 BUN 16 creatinine 2.37 blood sugar is 352 CK 3081 and troponin 0 0.225 and urinalysis is negative for infection. 05/02/2021 Patient is currently resting in the bed comfortably. Overnight rapid response team was called due to shortness of breath. IV fluids were discontinued for possible fluid load. Patient was complaining of Nausea and was given a dose of Zofran and started on Pepcid. Otherwise patient is being continued on antibiotics the form of azithromycin and Zosyn was changed to ceftriaxone for committing or pneumonia. Patient was seen by cardiology. 2-D echocardiogram was ordered and was started on low-dose Lasix. Laboratory data showed WBC trending down to 15.9, hemoglobin 10.2 and platelets 177, TSH 0.179 and free T4 level is 0.71. BUN 70. Creatinine 2.0. Patient is tolerating oral diet. CPK level is trending down. IV fluids on hold. Patient has been afebrile. No abdominal pain or diarrhea. Cardiology and pulmonary is on board. 05/03/2021 Patient was admitted to the hospital status post fall. Currently being treated for left lower lobe pneumonia. Patient had atrial fibrillation with rapid ventricular rate in 150s this morning. Patient was given amiodarone bolus and started on oral amiodarone. Patient is awake alert and oriented. Resting the bed comfortably currently. No fever no chills. Laboratory data showed WBC 16.3, hemoglobin 10.4 and platelets 191 BUN 75 and creatinine trending down to 1.6 today. Blood sugar is controlled. Patient is being continued on Lantus/Levemir 15 units at bedtime along with insulin sliding scale. Cardiology and pulmonary is on board. 2-D echocardiogram was reviewed by cardiology from office. Ejection fraction 50-55% and mild to moderate mitral regurgitation. 05/04/2021 Patient is currently sitting in the chair. Comfortable. Awake alert oriented 3. No complaints of chest pain or worsening shortness of breath. Breathing is much easier. No complaints of headache or dizziness or lightheadedness. Blood cultures showed hemoglobin is influenza. Patient will be continued on ceftriaxone and azithromycin. Patient also developed new onset atrial fibrillation with rapid ventricular rate. Current back to sinus rhythm. Status post amiodarone bolus dose and currently on by mouth amiodarone. At the conclusion was started in the form of Eliquis. Patient has been afebrile. No nausea vomiting abdominal pain or diarrhea. Tolerating oral diet. Renal function is improving. Cardiology and pulmonary is on board. 05/07/2021 Patient is currently sitting in the chair comfortably. Saturating well on room air. Denies any complaints of chest pain or worsening shortness of. Tolerating oral diet. No fever no chills. No nausea vomiting or abdominal pain or diarrhea. Patient is being continued on IV ceftriaxone with haemophilus i nfluenza in the blood cultures. Repeat cultures on 05/04/2021 has been negative so far. Laboratory data showed WBC 14.7 hemoglobin 11.3 and platelets 365 Sodium 139 potassium 4.7 chloride 102 BUN 41 creatinine 0.83 magnesium 1.5 which will be replaced. Patient is also being continued apixaban for new onset atrial fibrillation. Pulmonary is on board. Blood sugar is elevated today up to 300. Current medications reviewed. Objective - Vital Signs Vital signs: Vital Signs Temp 98.0 F 05/07/21 07:48 Pulse 104 H 05/07/21 15:54 Resp 16 05/07/21 15:54 BP 146/74 05/07/21 12:00 Pulse Ox 93 L 05/07/21 12:00 Intake & Output 05/06/21 05/07/21 05/07/21 18:59 06:59 18:59 Intake Total 810 100 720 Output Total 725 925 Balance 85 -825 720 Weight 105 kg Intake: Intake, IV Titration 50 Amount cefTRIAXone 2 gm In 50 Sodium Chloride 0.9% 50 ml @ 100 mls/hr IVPB Q24HR [facility] Rx#:[id number] Oral 760 100 720 Output: Urine 725 925 Other: Voiding Method Indwelling Catheter Indwelling Catheter Indwelling Catheter # Voids 500 # Bowel Movements 1 1 - Exam PHYSICAL EXAMINATION: Patient is lying in the bed comfortably, no acute distress, awake alert and oriented.. HEENT: Normocephalic. Neck is supple. Pupils reactive. Nostrils clear. Oral cavity is moist. Neck reveals no JVD, carotid bruits, or thyromegaly. CHEST EXAMINATION: Trachea is central. Symmetrical expansion. Bilateral impr aníbal air entry.. No wheezing or rhonchi.. CARDIAC: Normal S1, S2 with no gallops. No murmurs ABDOMEN: Soft. Bowel sounds normal. No organomegaly. No abdominal bruits. Extremities: reveal no edema. No clubbing or cyanosis Neurologically awake, alert, oriented x3 with well-coordinated movements. No focal deficits noted Skin: No rash or skin lesions. Psychiatric: Coperative. Nonsuicidal Musculoskeletal: No joint swelling or deformity. Normal range of motion. - Labs CBC & Chem 7: 05/07/21 07:07 05/07/21 07:07 Labs: Abnormal Lab Results - Last 24 Hours (Table) 07/07/21 07/08/21 07/08/21 Range/Units 20:03 07:07 07:07 WBC 14.7 H (3.8-10.6) k/uL RBC 3.68 L (3.80-5.40) m/uL Hgb 11.3 L (11.4-16.0) gm/dL Neutrophils # 13.4 H (1.3-7.7) k/uL Lymphocytes # 0.6 L (1.0-4.8) k/uL BUN 41 H (7-17) mg/dL Glucose 323 H (74-99) mg/dL POC Glucose (mg/dL) 399 H (75-99) mg/dL Magnesium 1.5 L (1.6-2.3) mg/dL 05/07/21 05/07/21 05/07/21 Range/Units 07:15 11:52 16:53 WBC (3.8-10.6) k/uL RBC (3.80-5.40) m/uL Hgb (11.4-16.0) gm/dL Neutrophils # (1.3-7.7) k/uL Lymphocytes # (1.0-4.8) k/uL BUN (7-17) mg/dL Glucose (74-99) mg/dL POC Glucose (mg/dL) 342 H 367 H 390 H (75-99) mg/dL Magnesium (1.6-2.3) mg/dL Microbiology - Last 24 Hours (Table) 05/04/21 06:28 Blood Culture - Preliminary Blood No Growth after 72 hours Assessment and Plan Assessment: Status post fall. Patient slipped while coming out of the shower. Left lower lobe pneumonia. Blood cultures showed Haemophilus influenza Sepsis secondary above New onset A. fib with RVR. Elevated troponin level. Possible type II AL.. [id number] mitral regurgitation and moderate aortic stenosis Hyperglycemia with uncontrolled diabetes type 2. 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 Improving. Osteoarthritis Mild cognitive impairment DVT prophylaxis with heparin subcu Plan: Patient was given amiodarone bolus and continue with oral amiodarone for new onset atrial fibrillation. Converted back to sinus rhythm.. Cardiology is following. Patient was started on anticoagulation with Eliquis. Patient will be continued on antibiotics. Renal function is improved.. Continue with insulin scale and started on Levemir 15 units at bedtime and A1c level VII.2. Patient is on metformin and glipizide at home. Cardiology and pulmonary is on board. 2-D echo report reviewed from office.. Continue to follow closely. Prognosis is guarded. Patient was seen by PT OT. Awaiting for transfer to [facility]. Time with Patient: Greater than 30
[2021-05-08 04:37] VITALS: RESP 18
[2021-05-08] MEDS: INSULIN ASPART (NovoLOG) 100 UNIT/ML VIAL SQ SCH (06:21)
[2021-05-08 06:26] LABS: Glucose,Whole Blood 95 mg/dL (75-99)
[2021-05-08] MEDS ORDERED: glipiZIDE 10 MG TAB PO SCH (08:00)
[2021-05-08 08:02] VITALS: BP 138/68; TEMP 96.8
[2021-05-08] MEDS: IPRATROPIUM-ALBUTEROL 3 ML NEB INHALATION SCH ×2 (08:14→11:41)
[2021-05-08] MEDS ORDERED: metFORMIN 500 MG TAB PO SCH (09:00)
[2021-05-08] MEDS: LOSARTAN 25 MG TAB PO SCH (09:04)
[2021-05-08] MEDS: MEMANTINE 5 MG TAB PO SCH (09:04)
[2021-05-08] MEDS: AMIODARONE 200 MG TAB PO SCH (09:04)
[2021-05-08] MEDS: APIXABAN 5 MG TAB PO SCH (09:04)
[2021-05-08 11:41] LABS: Glucose,Whole Blood 134 mg/dL (75-99)
[2021-05-08 11:49] VITALS: PULSE 96
--- NOTE | 2021-05-08 12:35 | P.PN ---
Subjective Progress Note Date: 05/08/21 05/05/2021 patient is seen in follow-up on selective care unit. Patient is awake and alert, in no acute distress, she states her breathing is slightly improved, but she still bronchospastic disease exam, no significant phlegm production, no fever or chills, hemodynamic stable, she is in sinus mechanism w ith a controlled rate, her current antibiotic coverage is with Rocephin, blood culture was positive for Haemophilus influenza, follow blood cultures have been negative thus far, most recent chest x-ray from yesterday showed multilevel patchy airspace opacities throughout the left lung suggestive of pneumonia with moderate left-sided pleural effusion. Today's lab 7 reviewed, with blood cell count is improving and is down to 13.2, hemoglobin is 10.3, final was improving, and creatinine was down to 1.19, BUN of 67, no nausea vomiting or diarrhea, patient is tolerating oral intake, no abdominal pain, generally she is weak, needs extensive assistance with repositioning in bed, sitting up On 05/07/2001 patient seen in follow-up on selective care unit, she is awake and alert, oriented 3, in no acute distress, breathing comfortably, room air pulse ox 91-94%, she's had no acute events overnight. She states she is breathing much easier, she's been up out of bed, to the commode, tolerating activity well. No worsening dyspnea, no worsening cough or wheezing. Today's labs have been reviewed, white blood cell count is 14.7, hemoglobin is 11.3, electrolytes are within normal limits, BUN is 41, creatinine 0.83. She remains on IV Rocephin for evidence of Haemophilus influenza in the blood cultures. Follow blood cultures have shown no growth at 72 hours. COVID-19 PCR was negative. Vital signs have been stable, she's had no fever or chills. The patient is seen today 05/08/2021 in follow-up on the selective care unit. She is currently sitting up in the bedside. Awake and alert in no acute distress. She is maintaining good O2 saturations in the low 90s on room air. She's been afebrile. Hemodynamically stable. Blood cultures are positive for Haemophilus influenza. Follow-up blood culture reveals no growth. Blood glucose 134. She remains on DuoNeb inhalations, ceftriaxone, anticoagulated with Eliquis. Objective - Vital Signs Vital signs: Vital Signs Temp 96.8 F L 05/08/21 08:02 Pulse 96 05/08/21 11:48 Resp 18 05/08/21 08:02 BP 138/68 05/08/21 08:02 Pulse Ox 93 L 05/08/21 08:02 Intake & Output 05/07/21 05/08/21 05/08/21 18:59 06:59 18:59 Intake Total 1370 180 Output Total 300 600 Balance 1070 -600 180 Weight 101 kg Intake: Intake, IV Titration 50 Amount cefTRIAXone 2 gm In 50 Sodium Chloride 0.9% 50 ml @ 100 mls/hr IVPB Q24HR [facility] Rx#:[id number] Oral 1320 180 Output: Urine 300 600 Other: Voiding Method Indwelling Catheter Indwelling Catheter Indwelling Catheter # Voids 500 0 # Bowel Movements 1 1 - Exam GENERAL EXAM: Alert, pleasant, 85-year-old female, on room air with pulse ox of 93% comfortable in no apparent distress. HEAD: Normocephalic/atraumatic. EYES: Normal reaction of pupils, equal size. Conjunctiva pink, sclera white. NOSE: Clear with pink turbinates. THROAT: No erythema or exudates. NECK: No masses, no JVD, no thyroid enlargement, no adenopathy. CHEST: No chest wall deformity. Symmetrical expansion. LUNGS: Equal air entry with no crackles, wheeze, rhonchi or dullness. CVS: Regular rate and rhythm, normal S1 and S2, no gallops, systolic ejection murmur auscultated, no rubs ABDOMEN: Soft, nontender. No hepatosplenomegaly, normal bowel sounds, no guarding or rigidity. EXTREMITIES: No clubbing, no edema, no cyanosis, 2+ pulses and upper and lower extremities. MUSCULOSKELETAL: Muscle strength and tone normal. SPINE: No scoliosis or deformity SKIN: No rashes CENTRAL NERVOUS SYSTEM: No focal deficits, tone is normal in all 4 extremities. PSYCHIATRIC: Alert and oriented -3. Appropriate affect. Intact judgment and insight. - Labs CBC & Chem 7: 05/07/21 07:07 05/07/21 07:07 Labs: Abnormal Lab Results - Last 24 Hours (Table) 05/07/21 05/07/21 05/08/21 Range/Units 16:53 19:36 11:37 POC Glucose (mg/dL) 390 H 387 H 134 H (75-99) mg/dL Microbiology - Last 24 Hours (Table) 05/04/21 06:28 Blood Culture - Preliminary Blood No Growth after 96 hours Assessment and Plan Assessment: Community-acquired pneumonia, left lung. Acute development of atrial fibrillation with rapid ventricular response, now on amiodarone. Patient now in sinus rhythm. Blood cultures positive for Haemophilus influenzae. Status post fall. Weakness, secondary to diarrhea. History of diabetes mellitus. History of hypertension. History of hyperlipidemia. History of dementia/memory impairment. 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 Plan: The patient was seen and evaluated by Dr. Grover Cleared for discharge from the pulmonary standpoint Complete a course of antibiotics in the form of Ceftin Plan is for discharge to [facility] for subacute rehabilitation I, the cosigning physician, performed a history & physical examination of the patient. Lungs sounds are clear. Maintaining good O2 saturations in the 90s on room air. I discussed the assessment and plan of care with my nurse practitioner, Radha Aleman. I attest to the above note as dictated by her.
--- NOTE | 2021-05-08 12:38 | P.DS ---
Providers Date of admission: 05/01/21 15:11 Expected date of discharge: 05/08/21 Attending physician: Ja Stevenson Consults: 05/01/21 15:05 Consult Physician Routine Consulting Provider: Anand Cordero Consult Reason/Comments: Pneumonia Do you want consulting provider notified?: Yes 05/05/21 10:34 Consult Physician Routine Consulting Provider: Lois Barajas Consult Reason/Comments: Bacteremia Do you want consulting provider notified?: Yes Primary care physician: Ja Stevenson Hospital Course: Hospital course:This is an 85-year-old female admitted with acute hypoxic resp iratory failure, pneumonia, new onset A. fib, weakness and multiple other medical issues. Anticoagulated on Eliquis. Continues on oral amiodarone. Telemetry sinus rhythm. Maintained on nebulized bronchodilators, steroids, Rocephin. Blood sugars uncontrolled Blood cultures X 2 positive for Haemophilus influenza with preliminary follow-up blood cultures negative. Afebrile. Significant weakness, evaluated by PT recommending home care/[facility]. Maintaining O2 sats in the high 90s on 3 L nasal cannula which can be further titrated down. Significant clinical improvement. Patient has been cleared by pulmonary for discharge. Patient will be discharged to [facility] subacute rehab today in stable condition with her prognosis pending discharge recommendations/antibiotics and clearance from ID. Patient Condition at Discharge: Stable Plan - Discharge Summary Discharge Rx Participant: Yes New Discharge Prescriptions: New Apixaban [Eliquis] 5 mg PO BID #60 tab Ipratropium-Albuterol Nebulize [Duoneb 0.5 mg-3 mg/3 ml Soln] 3 ml INHALATION Q4H PRN ml PRN Reason: Shortness Of Breath Or Wheezing INSULIN LISPRO (HumaLOG) [humaLOG] 0 unit SQ ACHS #1 vial Insulin Detemir (Levemir) [Levemir] 15 unit SQ HS syr predniSONE 10 mg PO DIRECTED #30 tab Insulin Detemir (Levemir) [Levemir] 15 unit SQ DAILY #1 vial Amiodarone [Cordarone] 200 mg PO BID #180 tab Ipratropium-Albuterol Nebulize [Duoneb 0.5 mg-3 mg/3 ml Soln] 3 ml INHALATION RT-QID ml Famotidine [Pepcid] 20 mg PO HS tab Cefuroxime Axetil [Ceftin] 500 mg PO BID 10 Days #20 tab Continue glipiZIDE [Glipizide] 10 mg PO DAILY@0800 metFORMIN HCL ER [Glucophage Xr] 500 mg PO DAILY Losartan Potassium [Cozaar] 25 mg PO DAILY Aspirin EC [Ecotrin Low Dose] 81 mg PO DAILY PRN PRN Reason: Pain Acetaminophen Tab [Tylenol] 500 mg PO Q6H Memantine [Namenda] 10 mg PO BID Lovastatin [Mevacor] 20 mg PO HS Discharge Medication List glipiZIDE [Glipizide] 10 mg PO DAILY@0800 04/15/17 [History] Acetaminophen Tab [Tylenol] 500 mg PO Q6H 05/01/21 [History] Aspirin EC [Ecotrin Low Dose] 81 mg PO DAILY PRN 05/01/21 [History] Losartan Potassium [Cozaar] 25 mg PO DAILY 05/01/21 [History] Lovastatin [Mevacor] 20 mg PO HS 05/01/21 [History] Memantine [Namenda] 10 mg PO BID 05/01/21 [History] metFORMIN HCL ER [Glucophage Xr] 500 mg PO DAILY 05/01/21 [History] Apixaban [Eliquis] 5 mg PO BID #60 tab 05/05/21 [Rx] Amiodarone [Cordarone] 200 mg PO BID #180 tab 05/06/21 [Rx] Cefuroxime Axetil [Ceftin] 500 mg PO BID 10 Days #20 tab 05/06/21 [Rx] Famotidine [Pepcid] 20 mg PO HS tab 05/06/21 [Rx] INSULIN LISPRO (HumaLOG) [humaLOG] 0 unit SQ ACHS #1 vial 05/06/21 [Rx] Insulin Detemir (Levemir) [Levemir] 15 unit SQ DAILY #1 vial 05/06/21 [Rx] Insulin Detemir (Levemir) [Levemir] 15 unit SQ HS syr 05/06/21 [Rx] Ipratropium-Albuterol Nebulize [Duoneb 0.5 mg-3 mg/3 ml Soln] 3 ml INHALATION Q4H PRN ml 05/06/21 [Rx] Ipratropium-Albuterol Nebulize [Duoneb 0.5 mg-3 mg/3 ml Soln] 3 ml INHALATION RT-QID ml 05/06/21 [Rx] predniSONE 10 mg PO DIRECTED #30 tab 05/06/21 [Rx] Follow up Appointment(s)/Referral(s): Ja Stevenson DO [Primary Care Provider] - 1 Week (After discharge from subacute rehab) Anand Cordero DO [Doctor of Osteopathic Medicine] - 2 Weeks Activity/Diet/Wound Care/Special Instructions: Pending final DC recommendations/antibiotics and clearance from ID. Diet: Consistent carb CBC, BMP in 3 days Discharge Disposition: TRANSFER TO SNF/ECF
== END 2021-05-08 12:30 | DRG 871 ==
LOC: EC 11:28 → 3SCARD 15:11
PROVIDERS: ADMIT Family Medicine; ATTEND Family Medicine
PROC: 05HC33Z Insertion of Infusion Device into Left Basilic Vein, Percutaneous Approach (ICD-10-PCS; principal; 2021-05-05 08:35)
DX: A41.3 Sepsis due to Hemophilus influenzae (principal); J14 Pneumonia due to Hemophilus influenzae; J96.01 Acute respiratory failure with hypoxia; I21.A1 Myocardial infarction type 2; N17.9 Acute kidney failure, unspecified; E11.65 Type 2 diabetes mellitus with hyperglycemia; E78.5 Hyperlipidemia, unspecified; E11.22 Type 2 diabetes mellitus with diabetic chronic kidney disease; I12.9 Hypertensive chronic kidney disease with stage 1 through stage 4 chronic kidney disease, or unspecified chronic kidney disease; T79.6XXA Traumatic ischemia of muscle, initial encounter; N18.30 Chronic kidney disease, stage 3 unspecified; Z87.891 Personal history of nicotine dependence; Z79.84 Long term (current) use of oral hypoglycemic drugs; F03.90 Unspecified dementia, unspecified severity, without behavioral disturbance, psychotic disturbance, mood disturbance, and anxiety; I08.0 Rheumatic disorders of both mitral and aortic valves; I10 Essential (primary) hypertension; Z20.822 Contact with and (suspected) exposure to COVID-19; I48.0 Paroxysmal atrial fibrillation; I49.3 Ventricular premature depolarization; M19.90 Unspecified osteoarthritis, unspecified site; W18.2XXA Fall in (into) shower or empty bathtub, initial encounter; W18.30XA Fall on same level, unspecified, initial encounter; Y93.E1 Activity, personal bathing and showering; Y92.009 Unspecified place in unspecified non-institutional (private) residence as the place of occurrence of the external cause; Z79.01 Long term (current) use of anticoagulants; Z79.82 Long term (current) use of aspirin; Z79.899 Other long term (current) drug therapy; Z86.11 Personal history of tuberculosis; Z90.710 Acquired absence of both cervix and uterus; Z98.890 Other specified postprocedural states; Z88.2 Allergy status to sulfonamides
CPT/HCPCS: 36410; 36415; 70450; 71045; 71046; 71250; 72125; 72170; 74176; 76937; 80048; 80053; 81001; 82550; 83036; 83605; 83735; 84439; 84443; 84484; 85025; 85610; 85730; 86850; 86900; 86901; 87040; 87635; 93005; 94640; 94760; 96360; 96361; 96365; 99285

== ENCOUNTER 2021-08-03 11:47 | Inpatient (IN) | payer MEDICARE ==
[2021-08-03 13:06] LABS: Anisocytosis Slight; Basophils % (A) 1 %; Eosinophils # (A) 0.1 k/uL (0-0.7); Eosinophils % (A) 2 %; Hypochromasia Marked; Lymphocytes # (A) 1.3 k/uL (1.0-4.8); Lymphocytes % (A) 28 %; MCH 23.7 pg (25.0-35.0); MCHC 28.7 g/dL (31.0-37.0); MCV 82.4 fL (80.0-100.0); Mean Platelet Volume 8.9; Monocytes # (A) 0.3 k/uL (0-1.0); Monocytes % (A) 6 %; Neutrophils # (A) 2.9 k/uL (1.3-7.7); Neutrophils % (A) 61 %; Platelet Count 278 k/uL (150-450); Poikilocytosis Slight; RBC 2.41 m/uL (3.80-5.40); RDW 16.6 % (11.5-15.5); WBC 4.7 k/uL (3.8-10.6)
[2021-08-03 13:19] LABS: Partial Thromboplastin Time 22.1 sec (22.0-30.0); Prothrombin Time 10.9 sec (9.0-12.0)
[2021-08-03 13:20] LABS: HCT 19.9 % (34.0-46.0); HGB 5.7 gm/dL (11.4-16.0)
[2021-08-03 13:25] LABS: Albumin 3.9 g/dL (3.5-5.0); Calcium 8.6 mg/dL (8.4-10.2); Potassium 4.9 mmol/L (3.5-5.1); Total Bilirubin 0.4 mg/dL (0.2-1.3); Total Protein 6.2 g/dL (6.3-8.2)
--- NOTE | 2021-08-03 13:52 | ED ---
General Adult HPI - General Chief complaint: Recheck/Abnormal Lab/Rx Stated complaint: Low hemoglobin Time Seen by Provider: 08/03/21 12:52 Source: patient Mode of arrival: ambulatory Limitations: no limitations - History of Present Illness Initial comments: 85-year-old female with a past medical history of heart failure, diabetes mellitus, pneumonia presents to the emergency room for a chief complaint of low hemoglobin. Patient reports that she had a routine appointment on Tuesday with her doctor. Patient states that she was found have a low hemoglobin of 5.4. Patient states this is not normal for her. Patient is not sure why she is anemic. She does admit to mild fatigue. Patient has not noticed any blood in stool. Denies any hematemesis.Patient has no other complaints at this time including shortness of breath, chest pain, abdominal pain, nausea or vomiting, headache, or visual changes. - Related Data Home Medications Medication Instructions Recorded Confirmed glipiZIDE [Glipizide] 10 mg PO DAILY@0800 04/15/17 05/01/21 Acetaminophen Tab [Tylenol] 500 mg PO Q6H 05/01/21 05/01/21 Aspirin EC [Ecotrin Low Dose] 81 mg PO DAILY PRN 05/01/21 05/01/21 Losartan Potassium [Cozaar] 25 mg PO DAILY 05/01/21 05/01/21 Lovastatin [Mevacor] 20 mg PO HS 05/01/21 05/01/21 Memantine [Namenda] 10 mg PO BID 05/01/21 05/01/21 metFORMIN HCL ER [Glucophage XR] 500 mg PO DAILY 05/01/21 05/01/21 Previous Rx's Medication Instructions Recorded Apixaban [Eliquis] 5 mg PO BID #60 tab 05/05/21 Amiodarone [Cordarone] 200 mg PO BID #180 tab 05/06/21 Cefuroxime Axetil [Ceftin] 500 mg PO BID 10 Days #20 tab 05/06/21 Famotidine [Pepcid] 20 mg PO HS tab 05/06/21 INSULIN LISPRO (HumaLOG) [humaLOG] 0 unit SQ ACHS #1 vial 05/06/21 Insulin Detemir (Levemir) [Levemir] 15 unit SQ DAILY #1 vial 05/06/21 Insulin Detemir (Levemir) [Levemir] 15 unit SQ HS syr 05/06/21 Ipratropium-Albuterol Nebulize 3 ml INHALATION Q4H PRN ml 05/06/21 [Duoneb 0.5 mg-3 mg/3 ml Soln] Ipratropium-Albuterol Nebulize 3 ml INHALATION RT-QID ml 05/06/21 [Duoneb 0.5 mg-3 mg/3 ml Soln] predniSONE 10 mg PO DIRECTED #30 tab 05/06/21 Allergies Allergy/AdvReac Type Severity Reaction Status Date / Time Sulfa (Sulfonamide Allergy Rash/Hives Verified 08/03/21 12:02 Antibiotics) Review of Systems ROS Statement: Those systems with pertinent positive or pertinent negative responses have been documented in the HPI. ROS Other: All systems not noted in ROS Statement are negative. 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 Absent: scleral icterus, conjunctival injection ENT exam: Present: normal exam, mucous membranes moist Neck exam: Present: normal inspection, full ROM. Absent: tenderness Respiratory exam: Present: normal lung sounds bilaterally. Absent: respiratory distress, wheezes Cardiovascular Exam: Present: regular rate, normal rhythm, normal heart sounds GI/Abdominal exam: Present: soft, normal bowel sounds. Absent: distended, tenderness Neurological exam: Present: alert Course Vital Signs 08/03/21 08/03/21 11:58 13:15 Temperature 98.0 F Pulse Rate 73 68 Respiratory 18 20 Rate Blood Pressure 115/49 134/45 O2 Sat by Pulse 97 98 Oximetry Procedures - [place] Protocol (Time Out) Nurse: Abdoul Powell Medical Decision Making - Medical Decision Making Vitals are stable. Patient is well-appearing. CBC does reveal acute anemia of 5.7. CMP unremarkable. Occult blood is positive. Discussed this case with Dr. Redman who did except the admission. He does agree with transfusion. We will consult patient's primary care Dr. Stevenson. - Lab Data Result diagrams: 08/03/21 12:04 08/03/21 12:04 Lab Results 08/03/21 08/03/21 08/03/21 Range/Units 12:04 12:04 12:04 WBC 4.7 (3.8-10.6) k/uL RBC 2.41 L (3.80-5.40) m/uL Hgb 5.7 L* (11.4-16.0) gm/dL Hct 19.9 L* (34.0-46.0) % MCV 82.4 (80.0-100.0) fL MCH 23.7 L (25.0-35.0) pg MCHC 28.7 L (31.0-37.0) g/dL RDW 16.6 H (11.5-15.5) % Plt Count 278 (150-450) k/uL MPV 8.9 Neutrophils % 61 % Lymphocytes % 28 % Monocytes % 6 % Eosinophils % 2 % Basophils % 1 % Neutrophils # 2.9 (1.3-7.7) k/uL Lymphocytes # 1.3 (1.0-4.8) k/uL Monocytes # 0.3 (0-1.0) k/uL Eosinophils # 0.1 (0-0.7) k/uL Basophils # 0.0 (0-0.2) k/uL Hypochromasia Marked Poikilocytosis Slight Anisocytosis Slight PT 10.9 (9.0-12.0) sec INR 1.0 (<1.2) APTT 22.1 (22.0-30.0) sec Sodium 139 (137-145) mmol/L Potassium 4.9 (3.5-5.1) mmol/L Chloride 108 H (98-107) mmol/L Carbon Dioxide 21 L (22-30) mmol/L Anion Gap 10 mmol/L BUN 44 H (7-17) mg/dL Creatinine 1.56 H (0.52-1.04) mg/dL Est GFR (CKD-EPI)AfAm 35 (>60 ml/min/1.73 sqM) Est GFR (CKD-EPI)NonAf 30 (>60 ml/min/1.73 sqM) Glucose 177 H (74-99) mg/dL Calcium 8.6 (8.4-10.2) mg/dL Total Bilirubin 0.4 (0.2-1.3) mg/dL AST 19 (14-36) U/L ALT 12 (4-34) U/L Alkaline Phosphatase 54 (38-126) U/L Total Protein 6.2 L (6.3-8.2) g/dL Albumin 3.9 (3.5-5.0) g/dL Stool Occult Blood (Negative) Blood Type Blood Type Recheck Bld Type Recheck Status Antibody Screen Crossmatch Spec Expiration Date 08/03/21 08/03/21 Range/Units 12:04 13:13 WBC (3.8-10.6) k/uL RBC (3.80-5.40) m/uL Hgb (11.4-16.0) gm/dL Hct (34.0-46.0) % MCV (80.0-100.0) fL MCH (25.0-35.0) pg MCHC (31.0-37.0) g/dL RDW (11.5-15.5) % Plt Count (150-450) k/uL MPV Neutrophils % % Lymphocytes % % Monocytes % % Eosinophils % % Basophils % % Neutrophils # (1.3-7.7) k/uL Lymphocytes # (1.0-4.8) k/uL Monocytes # (0-1.0) k/uL Eosinophils # (0-0.7) k/uL Basophils # (0-0.2) k/uL Hypochromasia Poikilocytosis Anisocytosis PT (9.0-12.0) sec INR (<1.2) APTT (22.0-30.0) sec Sodium (137-145) mmol/L Potassium (3.5-5.1) mmol/L Chloride (98-107) mmol/L Carbon Dioxide (22-30) mmol/L Anion Gap mmol/L BUN (7-17) mg/dL Creatinine (0.52-1.04) mg/dL Est GFR (CKD-EPI)AfAm (>60 ml/min/1.73 sqM) Est GFR (CKD-EPI)NonAf (>60 ml/min/1.73 sqM) Glucose (74-99) mg/dL Calcium (8.4-10.2) mg/dL Total Bilirubin (0.2-1.3) mg/dL AST (14-36) U/L ALT (4-34) U/L Alkaline Phosphatase (38-126) U/L Total Protein (6.3-8.2) g/dL Albumin (3.5-5.0) g/dL Stool Occult Blood Positive H (Negative) Blood Type O Positive Blood Type Recheck O Pos Bld Type Recheck Status No Antibody Screen NEGATIVE Crossmatch See Detail Spec Expiration Date 08/06/20212303 Disposition Clinical Impression: Anemia, GI bleed Disposition: ADMITTED IP TO THIS HOSP Is patient prescribed a controlled substance at d/c from ED?: No Referrals: Ja Stevenson DO [Primary Care Provider] - 1-2 days Time of Disposition: 14:12
[2021-08-03] MEDS ORDERED: PANTOPRAZOLE 40 MG/10 ML VIAL IVP STA (14:10)
[2021-08-03] MEDS ORDERED: NALOXONE 0.4 MG/ML 1 ML VIAL IV PRN (14:14)
[2021-08-03] MEDS: SODIUM CHLORIDE 0.9% 1,000 ML IV SCH (14:27)
[2021-08-04 06:58] LABS: Glucose,Whole Blood 131 mg/dL (75-99)
[2021-08-04 08:09] LABS: Anisocytosis Slight; Basophils % (A) 1 %; Eosinophils # (A) 0.1 k/uL (0-0.7); Eosinophils % (A) 2 %; HCT 24.7 % (34.0-46.0); Hypochromasia Marked; Lymphocytes # (A) 1.1 k/uL (1.0-4.8); Lymphocytes % (A) 22 %; MCH 24.7 pg (25.0-35.0); MCHC 29.8 g/dL (31.0-37.0); MCV 82.7 fL (80.0-100.0); Mean Platelet Volume 8.8; Monocytes # (A) 0.3 k/uL (0-1.0); Monocytes % (A) 6 %; Neutrophils # (A) 3.5 k/uL (1.3-7.7); Neutrophils % (A) 67 %; Platelet Count 290 k/uL (150-450); Poikilocytosis Marked; RBC 2.99 m/uL (3.80-5.40); RDW 16.2 % (11.5-15.5); WBC 5.2 k/uL (3.8-10.6)
[2021-08-04 08:10] LABS: Albumin 3.8 g/dL (3.5-5.0); Potassium 4.9 mmol/L (3.5-5.1); Total Bilirubin 0.6 mg/dL (0.2-1.3); Total Protein 6.2 g/dL (6.3-8.2)
[2021-08-04 08:16] LABS: HGB 7.4 gm/dL (11.4-16.0)
[2021-08-04] MEDS ORDERED: IPRATROPIUM-ALBUTEROL 3 ML NEB INHALATION PRN (08:30)
[2021-08-04] MEDS: AMIODARONE 200 MG TAB PO SCH (10:29)
[2021-08-04] MEDS: glipiZIDE 10 MG TAB PO SCH ×2 (10:29→21:46)
[2021-08-04] MEDS: FUROSEMIDE 20 MG TAB PO SCH (10:29)
[2021-08-04] MEDS: LOSARTAN 25 MG TAB PO SCH (10:29)
[2021-08-04] MEDS: metFORMIN 500 MG TAB PO SCH (10:29)
[2021-08-04] MEDS: PANTOPRAZOLE 40 MG/10 ML VIAL IVP SCH ×2 (10:31→21:46)
[2021-08-04 10:35] LABS: Glucose,Whole Blood 157 mg/dL (75-99)
[2021-08-04] MEDS ORDERED: PANTOPRAZOLE 40 MG/10 ML VIAL IVP PRN (12:38)
[2021-08-04] MEDS ORDERED: HYDROmorphone 0.5 MG/0.5 ML SYRINGE IVP STA (12:38)
[2021-08-04] MEDS: SODIUM CHLORIDE 0.9% 1,000 ML IV SCH (13:49)
--- NOTE | 2021-08-04 14:41 | P.GSHP ---
History of Present Illness H&P Date: 08/04/21 CHIEF COMPLAINT: Low hemoglobin HISTORY OF PRESENT ILLNESS: This is a 85-year-old female who presented to the hospital due to having outpatient labs with a hemoglobin of 5.4. She was told by her PCP to present to the ER for further workup. She does have a past history of colon polyps and reports that her last colonoscopy was about 25 years ago. Patient also is on Eliquis at home. Patient denies any abdominal pain. He denies any blood or black stools. She did have a hemoglobin of 5.7 on ad mission with stool positive fecal occult blood. She received a unit of blood and hemoglobin is now up to 7.4. She denies any prior history of anemia. She denies any NSAID use. However, in April 2021 she did have a hemoglobin of 8.9. Patient does admit to mild fatigue. Denies any shortness of breath or dizziness. PAST MEDICAL HISTORY: Congestive heart failure, diabetes mellitus, TB in 1955 PAST SURGICAL HISTORY: Hysterectomy MEDICATIONS: See list. ALLERGIES: See list. SOCIAL HISTORY: No illicit drug use. REVIEW OF SYSTEMS: CONSTITUTIONAL: Denies fever or chills. HEENT: Denies blurred vision, vision changes, or eye pain. Denies hemoptysis CARDIOVASCULAR: Denies chest pain or pressure. RESPIRATORY: No shortness of breath. GASTROINTESTINAL: See HPI for pertinent findings HEMATOLOGIC: Denies bleeding disorders. GENITOURINARY: Denies any blood in urine or increased urinary frequency. SKIN: Denies pruitis. Denies rash. PHYSICAL EXAM: VITAL SIGNS: Reviewed GENERAL: Well-developed in no acute distress. HEENT: No sclera icterus. Extraocular movements grossly intact. Moist buccal mucosa. Head is atraumatic, normocephalic. No nasal drainage. ABDOMEN: Soft. Nondistended. Nontender NEUROLOGIC: Alert and oriented. Cranial nerves II through XII grossly intact. LABORATORY DATA: WBC 5.2 hemoglobin 5.7 up to 7.4 hematocrit 24.7 MCV 82.7 platelets 290 sodium 141 potassium 4.9 BUN 32 creatinine 1.31 Fecal occult blood positive COVID-19 detected IMAGING: ASSESSMENT: 1. Microcytic anemia 2. Acute GI bleed with positive fecal occult blood PLAN: -Patient scheduled for EGD and colonoscopy on , 08/06/[address] conde -Patient did have a full liquid diet today -Then clear liquids starting tomorrow -Start GoLYTELY prep tomorrow morning -continue Protonix 40 mg IV twice a day -Hold Eliquis -Medical service and cardiology on consult Physician Assemblyman Or Woman note has been reviewed by physician. Signing provider agrees with the documented findings, assessment, and plan of care. 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 History of Any Multi-Drug Resistant Organisms: None Reported Past Surgical History: Hysterectomy Additional Past Surgical History / Comment(s): partial lung removal at [facility] Past Anesthesia/Blood Transfusion Reactions: No Reported Reaction Past Psychological History: No Psychological Hx Reported Smoking Status: Former smoker Past Alcohol Use History: None Reported Past Drug Use History: None Reported - Past Family History Mother Family Medical History: Cancer Father Family Medical History: Myocardial Infarction ([place]) Medications and Allergies Home Medications Medication Instructions Recorded Confirmed Type glipiZIDE [Glipizide] 10 mg PO BID 04/15/17 08/03/21 History Losartan Potassium [Cozaar] 25 mg PO HS 05/01/21 08/03/21 History Lovastatin [Mevacor] 20 mg PO HS 05/01/21 08/03/21 History Memantine [Namenda] 20 mg PO HS 05/01/21 08/03/21 History metFORMIN HCL ER [Glucophage XR] 500 mg PO DAILY@1200 05/01/21 08/03/21 History Apixaban [Eliquis] 5 mg PO BID #60 tab 05/05/21 08/03/21 Rx Acetaminophen/Diphenhydramine 1 tab PO HS 08/03/21 08/03/21 History [Tylenol PM 500-25mg] Amiodarone [Cordarone] 200 mg PO DAILY 08/03/21 08/03/21 History Furosemide [Lasix] 20 mg PO DAILY 08/03/21 08/03/21 History Ipratropium-Albuterol Nebulize 3 ml INHALATION RT-QID PRN 08/03/21 08/03/21 History [Duoneb 0.5 mg-3 mg/3 ml Soln] Allergies Allergy/AdvReac Type Severity Reaction Status Date / Time Sulfa (Sulfonamide Allergy Rash/Hives Verified 08/03/21 14:48 Antibiotics) Surgical - Exam Vital Signs Temp Pulse Resp BP Pulse Ox 98.0 F 73 18 115/49 97 08/03/21 11:58 08/03/21 11:58 08/03/21 11:58 08/03/21 11:58 08/03/21 11:58 Results - Labs 08/04/21 07:01 08/04/21 07:01 Abnormal Lab Results - Last 24 Hours (Table) 08/03/21 08/04/21 08/04/21 Range/Units 12:04 06:56 07:01 RBC 2.99 L (3.80-5.40) m/uL Hgb 7.4 L D (11.4-16.0) gm/dL Hct 24.7 L (34.0-46.0) % MCH 24.7 L (25.0-35.0) pg MCHC 29.8 L (31.0-37.0) g/dL RDW 16.2 H (11.5-15.5) % Chloride (98-107) mmol/L BUN (7-17) mg/dL Creatinine (0.52-1.04) mg/dL Glucose (74-99) mg/dL POC Glucose (mg/dL) 131 H (75-99) mg/dL Total Protein (6.3-8.2) g/dL Crossmatch See Detail 08/04/21 08/04/21 Range/Units 07:01 10:33 RBC (3.80-5.40) m/uL Hgb (11.4-16.0) gm/dL Hct (34.0-46.0) % MCH (25.0-35.0) pg MCHC (31.0-37.0) g/dL RDW (11.5-15.5) % Chloride 110 H (98-107) mmol/L BUN 32 H (7-17) mg/dL Creatinine 1.31 H (0.52-1.04) mg/dL Glucose 116 H (74-99) mg/dL POC Glucose (mg/dL) 157 H (75-99) mg/dL Total Protein 6.2 L (6.3-8.2) g/dL Crossmatch Diabetes panel 08/04/21 Range/Units 07:01 Sodium 141 (137-145) mmol/L Potassium 4.9 (3.5-5.1) mmol/L Chloride 110 H (98-107) mmol/L Carbon Dioxide 23 (22-30) mmol/L BUN 32 H (7-17) mg/dL Creatinine 1.31 H (0.52-1.04) mg/dL Glucose 116 H (74-99) mg/dL Calcium 9.0 (8.4-10.2) mg/dL AST 19 (14-36) U/L ALT 11 (4-34) U/L Alkaline Phosphatase 64 (38-126) U/L Total Protein 6.2 L (6.3-8.2) g/dL Albumin 3.8 (3.5-5.0) g/dL Calcium panel 08/04/21 Range/Units 07:01 Calcium 9.0 (8.4-10.2) mg/dL Albumin 3.8 (3.5-5.0) g/dL Pituitary panel 08/04/21 Range/Units 07:01 Sodium 141 (137-145) mmol/L Potassium 4.9 (3.5-5.1) mmol/L Chloride 110 H (98-107) mmol/L Carbon Dioxide 23 (22-30) mmol/L BUN 32 H (7-17) mg/dL Creatinine 1.31 H (0.52-1.04) mg/dL Glucose 116 H (74-99) mg/dL Calcium 9.0 (8.4-10.2) mg/dL Adrenal panel 08/04/21 Range/Units 07:01 Sodium 141 (137-145) mmol/L Potassium 4.9 (3.5-5.1) mmol/L Chloride 110 H (98-107) mmol/L Carbon Dioxide 23 (22-30) mmol/L BUN 32 H (7-17) mg/dL Creatinine 1.31 H (0.52-1.04) mg/dL Glucose 116 H (74-99) mg/dL Calcium 9.0 (8.4-10.2) mg/dL Total Bilirubin 0.6 (0.2-1.3) mg/dL AST 19 (14-36) U/L ALT 11 (4-34) U/L Alkaline Phosphatase 64 (38-126) U/L Total Protein 6.2 L (6.3-8.2) g/dL Albumin 3.8 (3.5-5.0) g/dL
--- NOTE | 2021-08-04 15:04 | XR ---
EXAMINATION TYPE: XR chest 1V DATE OF EXAM: 08/04/2021 CLINICAL HISTORY: Increasing shortness of breath TECHNIQUE: Single AP portable upright view of the chest is obtained. COMPARISON: Chest x-ray from May 04, 2021 FINDINGS: There is chronic parenchymal change with suspected tiny bilateral pleural effusions. No read spicious focal airspace opacity or pneumothorax seen bilaterally. Mild cardiomegaly with atherosclero tic thoracic aorta. Dense mitral annular calcifications redemonstrated. Degenerative change left grea ter than right glenohumeral joint. Multilevel spurring in the lower thoracic spine. Slightly elevated left hemidiaphragm. IMPRESSION: Chronic changes and Cardiomegaly with tiny bilateral pleural effusions. Correlate for CHF exacerbation.
[2021-08-04 16:37] LABS: Glucose,Whole Blood 67 mg/dL (75-99)
[2021-08-04 17:10] LABS: Glucose,Whole Blood 122 mg/dL (75-99)
[2021-08-04 19:45] LABS: Glucose,Whole Blood 171 mg/dL (75-99)
[2021-08-04] MEDS: MEMANTINE 10 MG TAB PO SCH (21:46)
[2021-08-04] MEDS: ATORVASTATIN 20 MG TAB PO SCH (21:46)
--- NOTE | 2021-08-04 23:27 | P.CONS ---
History of Present Illness - Reason for Consult Consult date: 08/04/21 - History of Present Illness This is a pleasant 85-year-old white female who was admitted to the hospital after being notified as outpatient for a severely low hemoglobin. Patient saw Dr.'s Roper outpatient who ordered some routine blood work because of shortness of breath and fatigue. Patient labs were drawn and she was notified to go to the nearest emergency room because of a severely low hemoglobin under 6. She was subsequently admitted to the hospital denies any chest pain admits to shortness of breath admits to dizziness on ambulation denies any syncope. She denies any fever nausea or vomiting. Review of Systems GENERAL: Patient denies fever. Denies chills. EYES: Denies blurred vision. Denies vision changes. Denies eye pain. EARS, NOSE, MOUTH, & THROAT: Denies headache. Denies sore throat. Denies ear pain. RESPIRATORY: Denies cough. admits to shortness of breath. Denies sputum production. Denies hemoptysis. CARDIOVASCULAR: Denies chest pain or pressure. Denies palpitations. Denies arrhythmias. GASTROINTESTINAL: Denies abdominal pain. Denies diarrhea. Denies constipation. Denies nausea. Denies vomiting. Denies heartburn. Denies blood in the stool. GENITOURINARY: Denies urinary frequency. Denies burning. Denies dysuria. Denies cloudy urine. Denies blood in the urine. MUSCULOSKELETAL: Denies myalgias. Denies joint swelling. Denies decreased range of motion beyond patients baseline. INTEGUMENTARY: Denies pruitis. Denies rash. PSYCHIATRIC: Denies suicidal or homicial ideations. ENDOCRINE: Denies weight change. Denies polydipsia. Denies polyuria. HEMATOLOGIC: Denies bleeding disorders. 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 History of Any Multi-Drug Resistant Organisms: None Reported Past Surgical History: Hysterectomy Additional Past Surgical History / Comment(s): partial lung removal at [facility] Past Anesthesia/Blood Transfusion Reactions: No Reported Reaction Past Psychological History: No Psychological Hx Reported Smoking Status: Former smoker Past Alcohol Use History: None Reported Past Drug Use History: None Reported - Past Family History Mother Family Medical History: Cancer Father Family Medical History: Myocardial Infarction ([place]) Medications and Allergies Home Medications Medication Instructions Recorded Confirmed Type RX: glipiZIDE [Glipizide] 10 mg PO BID 04/15/17 08/03/21 History RX: Losartan Potassium [Cozaar] 25 mg PO HS 05/01/21 08/03/21 History RX: Lovastatin [Mevacor] 20 mg PO HS 05/01/21 08/03/21 History RX: Memantine [Namenda] 20 mg PO HS 05/01/21 08/03/21 History RX: metFORMIN HCL ER [Glucophage 500 mg PO DAILY@1200 05/01/21 08/03/21 History XR] Apixaban [Eliquis] 5 mg PO BID #60 tab 05/05/21 08/03/21 Rx Acetaminophen/Diphenhydramine 1 tab PO HS 08/03/21 08/03/21 History [Tylenol PM 500-25mg] Furosemide [Lasix] 20 mg PO DAILY 08/03/21 08/03/21 History RX: Amiodarone [Cordarone] 200 mg PO DAILY 08/03/21 08/03/21 History RX: Ipratropium-Albuterol Nebulize 3 ml INHALATION RT-QID PRN 08/03/21 08/03/21 History [Duoneb 0.5 mg-3 mg/3 ml Soln] Allergies Allergy/AdvReac Type Severity Reaction Status Date / Time Sulfa (Sulfonamide Allergy Rash/Hives Verified 08/03/21 14:48 Antibiotics) Physical Exam Osteopathic Statement: *. No significant issues noted on an osteopathic structural exam other than those noted in the History and Physical/Consult. Vitals: Vital Signs Temp Pulse Pulse Resp BP BP Pulse Ox 08/04/21 20:00 97.4 F L 71 20 146/65 98 08/04/21 16:00 97.7 F 72 20 142/67 98 08/04/21 11:49 75 20 146/65 95 08/04/21 10:37 74 18 163/69 98 08/04/21 06:53 97.3 F L 73 18 143/57 99 08/04/21 02:57 97.1 F L 73 18 151/70 96 Intake and Output 08/04/21 08/04/21 08/05/21 14:59 22:59 06:59 Intake Total 180 190 Balance 180 190 Intake: IV 10 Invasive Line 1 10 Oral 180 180 Other: Voiding Method Toilet # Voids 0 1 Weight 89.811 kg GENERAL: This is a -year-old in no apparent distress at the time of examination. Pleasant and cooperative. HEENT: Head is atraumatic, normocephalic. Pupils are equal, round, and reactive to light. Sclerae anicteric. Conjunctivae are clear. Mucus membranes of the mouth are moist. Neck is supple. RESPIRATORY: Clear to auscultation. No wheezes, rales, or rhonchi. No use of accessory muscles. CARDIOVASCULAR: Regular rate and rhythm. GASTROINTESTINAL: No distention noted. Abdomen soft and round. Normal active bowel sounds auscultated x 4 quadrants. No pain or tenderness noted upon palpation. INTEGUMENTARY: No cyanosis. No jaundice. No rashes noted. No cellulitis noted. EXTREMITIES: 2+ peripheral pulses. No evidence of peripheral edema. No calf tenderness noted. NEUROLOGIC: Cranial nerves II-XII intact. PSYCHIATRIC: Awake, alert, and oriented X 3. Appropriate affect. Intact judgement and insight. Results CBC & Chem 7: 08/04/21 07:01 08/04/21 07:01 Labs: Abnormal Lab Results - Last 24 Hours (Table) 08/04/21 08/04/21 08/04/21 Range/Units 06:56 07:01 07:01 RBC 2.99 L (3.80-5.40) m/uL Hgb 7.4 L D (11.4-16.0) gm/dL Hct 24.7 L (34.0-46.0) % MCH 24.7 L (25.0-35.0) pg MCHC 29.8 L (31.0-37.0) g/dL RDW 16.2 H (11.5-15.5) % Chloride 110 H (98-107) mmol/L BUN 32 H (7-17) mg/dL Creatinine 1.31 H (0.52-1.04) mg/dL Glucose 116 H (74-99) mg/dL POC Glucose (mg/dL) 131 H (75-99) mg/dL Total Protein 6.2 L (6.3-8.2) g/dL 08/04/21 08/04/21 08/04/21 Range/Units 10:33 16:35 17:08 RBC (3.80-5.40) m/uL Hgb (11.4-16.0) gm/dL Hct (34.0-46.0) % MCH (25.0-35.0) pg MCHC (31.0-37.0) g/dL RDW (11.5-15.5) % Chloride (98-107) mmol/L BUN (7-17) mg/dL Creatinine (0.52-1.04) mg/dL Glucose (74-99) mg/dL POC Glucose (mg/dL) 157 H 67 L 122 H (75-99) mg/dL Total Protein (6.3-8.2) g/dL 08/04/21 Range/Units 19:43 RBC (3.80-5.40) m/uL Hgb (11.4-16.0) gm/dL Hct (34.0-46.0) % MCH (25.0-35.0) pg MCHC (31.0-37.0) g/dL RDW (11.5-15.5) % Chloride (98-107) mmol/L BUN (7-17) mg/dL Creatinine (0.52-1.04) mg/dL Glucose (74-99) mg/dL POC Glucose (mg/dL) 171 H (75-99) mg/dL Total Protein (6.3-8.2) g/dL Assessment and Plan (1) Anemia Current Visit: Yes Status: Acute Code(s): D64.9 - ANEMIA, UNSPECIFIED SNOMED Code(s): 885977889 (2) GI bleed Current Visit: Yes Status: Acute Code(s): K92.2 - GASTROINTESTINAL HEMORRHAGE, UNSPECIFIED SNOMED Code(s): 23312974 (3) JOSÉ LUIS (acute kidney injury) Current Visit: No Status: Acute Code(s): N17.9 - ACUTE KIDNEY FAILURE, UNSPECIFIED SNOMED Code(s): 72642710 Plan: Patient will be admitted with blood transfusions serial H&H's and surgical\GI consultation already in progress should undergo an EGD today with possible colonoscopy tomorrow. She had recent hemoglobins at 12.3 and 12.2 last September 2020.
[2021-08-05 06:06] LABS: Glucose,Whole Blood 94 mg/dL (75-99)
[2021-08-05] MEDS ORDERED: PEG 3350-NA SULF,BICARB,CL/KCL 4,000 ML BOTTLE PO ONE (08:00)
[2021-08-05] MEDS: LOSARTAN 25 MG TAB PO SCH (08:48)
[2021-08-05] MEDS: metFORMIN 500 MG TAB PO SCH (08:48)
[2021-08-05] MEDS: AMIODARONE 200 MG TAB PO SCH (08:48)
[2021-08-05] MEDS: glipiZIDE 10 MG TAB PO SCH ×2 (08:48→20:22)
[2021-08-05] MEDS: FUROSEMIDE 20 MG TAB PO SCH (08:48)
[2021-08-05] MEDS: PANTOPRAZOLE 40 MG/10 ML VIAL IVP SCH ×2 (08:48→20:22)
[2021-08-05 09:15] LABS: Calcium 9.1 mg/dL (8.4-10.2)
[2021-08-05 09:23] LABS: Anisocytosis Slight; HCT 22.3 % (34.0-46.0); Hypochromasia Marked; MCH 25.5 pg (25.0-35.0); MCHC 30.6 g/dL (31.0-37.0); MCV 83.2 fL (80.0-100.0); Mean Platelet Volume 8.6; Platelet Count 239 k/uL (150-450); Poikilocytosis Marked; RBC 2.68 m/uL (3.80-5.40); RDW 16.6 % (11.5-15.5)
[2021-08-05 09:30] LABS: HGB 6.8 gm/dL (11.4-16.0)
--- NOTE | 2021-08-05 09:30 | ECHOF ---
Referral Reason:lv function assessment MEASUREMENTS -------- HEIGHT: 165.1 cm WEIGHT: 87.1 kg BP: 128/60 RVIDd: 2.8 cm (< 3.3) IVSd: 1.2 cm (0.6 - 1.1) LVIDd: 5.5 cm (3.9 - 5.3) LVPWd: 1.2 cm (0.6 - 1.1) IVSs: 1.8 cm LVIDs: 4.2 cm LVPWs: 1.7 cm LA Diam: 4.1 cm (2.7 - 3.8) LAESV Index (A-L): 43.51 ml/m Ao Diam: 3.1 cm (2.0 - 3.7) AV Cusp: 1.2 cm (1.5 - 2.6) MV EXCURSION: 8.330 mm (> 18.000) MV EF SLOPE: 51 mm/s (70 - 150) EPSS: 1.4 cm MV E Isra: 1.17 m/s MV DecT: 133 ms MV A Isra: 1.18 m/s MV E/A Ratio: 0.99 AV maxP.79 mmHg AV meanP.62 mmHg RAP: 5.00 mmHg RVSP: 57.21 mmHg FINDINGS -------- Sinus rhythm. This was a technically adequate study. The left ventricle is mildly dilated. There is borderline concentric left ventricular hypertrophy. Overall left ventricular systolic function is normal with, an EF between 55 - 60 %. The right ventricle is normal in size. LA is severely dilated >40 ml/m2 The right atrium is normal in size. Interatrial and interventricular septum intact. There is moderate aortic valve sclerosis. There is mild aortic stenosis present. Peak/mean gradie nt across the Aortic Valve is 33.79mmHg / 18.62mmHg. The mitral valve leaflets are mildly thickened. Mild mitral annular calcification present. Mild m itral regurgitation is present. The peak and mean MV gradients are 7.91mmHg 3.80mmHg as measured b y doppler. [id number] tricuspid regurgitation present. There is severe pulmonary hypertension. The rig ht ventricular systolic pressure, as measured by Doppler, is 57.21mmHg. Trace/mild (physiologic) pulmonic regurgitation. The aortic root size is normal. Normal inferior vena cava with normal inspiratory collapse consistent with estimated right atrial pre ssure of 5 mmHg. There is no pericardial effusion. CONCLUSIONS -------- 1. The left ventricle is mildly dilated. 2. There is borderline concentric left ventricular hypertrophy. 3. Overall left ventricular systolic function is normal with, an EF between 55 - 60 %. 4. LA is severely dilated >40 ml/m2 5. There is moderate aortic valve sclerosis. 6. There is mild aortic stenosis present. 7. Peak/mean gradient across the Aortic Valve is 33.79mmHg / 18.62mmHg. 8. The mitral valve leaflets are mildly thickened. 9. Mild mitral annular calcification present. 10. Mild mitral regurgitation is present. 11. The peak and mean MV gradients are 7.91mmHg 3.80mmHg as measured by doppler. 12. [id number] tricuspid regurgitation present. 13. There is severe pulmonary hypertension. 14. The right ventricular systolic pressure, as measured by Doppler, is 57.21mmHg. 15. Trace/mild (physiologic) pulmonic regurgitation. 16. Normal inferior vena cava with normal inspiratory collapse consistent with estimated right atrial pressure of 5 mmHg. 17. There is no pericardial effusion. WEED CONTROLLER: Nat Polanco RDCS
--- NOTE | 2021-08-05 10:11 | P.CRDCN ---
History of Present Illness Consult date: 08/05/21 History of present illness: HISTORY OF PRESENT ILLNESS: This is a 85-year-old female with a past medical history significant for paroxysmal atrial fibrillation on anticoagulation with Eliquis, aortic stenosis, congestive heart failure, hypertension, and hyperlipidemia. Patient follows in the office with Dr. Grande. We have been asked to see the patient in consultation for "Dr. Stevenson said Dr. Grande wanted to be consulted". Patient examined at the bedside. Patient presented to the hospital after being notified that her hemoglobin was low from an outpatient blood draw. Patient denies any bright red blood in her stools or dark stools. She does report she has been having some shortness of breath over the past week. She denies any chest pain or pressure. Patient's hemoglobin on admission 5.7. Most recent hemoglobin 6.8. Her Eliquis remains on hold. She is scheduled for EGD and colonoscopy tomorrow with Dr. Redman. Chest xray chronic changes and cardiomegaly with tiny bilateral pleural effusions. Correlate for CHF exacerbation. Laboratory data: WBC 4.0. Hemoglobin 6.8. Platelet count 2039. Sodium 138. Potassium 5.0. BUN 23. Creatinine 1.24. Current home cardiac medications include losartan 25 mg at night, Lasix 20 mg daily, lovastatin 20 mg at night, Eliquis 5 mg twice a day, and amiodarone 200 mg daily Echocardiogram completed reveals ejection fraction 55-60%, mild aortic stenosis, mild mitral regurgitation, [id number] tricuspid regurgitation, and severe pulmonary hypertension Cardiac catheterization history: October 2008 revealing normal coronary arteries. REVIEW OF SYSTEMS: At the time of my exam: CONSTITUTIONAL: Denies fever or chills. HEENT: Denies blurred vision, vision changes, or eye pain. Denies hemoptysis CARDIOVASCULAR: Denies chest pain. Denies orthopnea. Denies PND. Denies palpitations RESPIRATORY: Denies shortness of breath. GASTROINTESTINAL: Denies abdominal pain. Denies nausea or vomiting. HEMATOLOGIC: Denies bleeding disorders. GENITOURINARY: Denies any blood in urine. SKIN: Denies pruitis. Denies rash. PHYSICAL EXAM: VITAL SIGNS: Reviewed. GENERAL: Well-developed in no acute distress. HEENT: Head is normocephalic. Pupils are equal, round. Sclerae anicteric. Mucous membranes of the mouth are moist. Neck supple. No JVD or thyromegaly LUNGS: Respirations even and unlabored. Lungs essentially clear to auscultation bilaterally. HEART: Regular rate and rhythm. S1 and S2 heard. Systolic murmur noted. ABDOMEN: Soft. Nondistended. Nontender. EXTREMITIES: Normal range of motion. No clubbing or cyanosis. Peripheral pulses intact. 2-3+ bilateral lower extremity edema NEUROLOGIC: Awake and alert. Oriented x 3. ASSESSMENT: Acute GI bleed Acute blood loss anemia Paroxysmal atrial fibrillation on anticoagulation with Eliquis Chronic diastolic congestive heart failure Hypertension Hyperlipidemia Aortic stenosis PLAN: 2-D echo obtained and reviewed Resume home cardiac medications Continue to hold Eliquis. Monitor hemoglobin Patient scheduled for EGD and colonoscopy tomorrow There are no absolute contraindications from a cardiac standpoint for patient to undergo endoscopy tomorrow Further recommendations pending patient's course Nurse practitioner note has been reviewed by physician. Signing provider agrees with the documented findings, assessment, and plan of care. Past Medical History Past Medical History: Heart Failure, Diabetes Mellitus, Pneumonia Additional Past Medical History / Comment(s): TB in [birth year] History of Any Multi-Drug Resistant Organisms: None Reported Past Surgical History: Hysterectomy Additional Past Surgical History / Comment(s): partial lung removal at [facility] Past Anesthesia/Blood Transfusion Reactions: No Reported Reaction Past Psychological History: No Psychological Hx Reported Smoking Status: Former smoker Past Alcohol Use History: None Reported Past Drug Use History: None Reported - Past Family History Mother Family Medical History: Cancer Father Family Medical History: Myocardial Infarction ([place]) Medications and Allergies Home Medications Medication Instructions Recorded Confirmed Type glipiZIDE [Glipizide] 10 mg PO BID 04/15/17 08/03/21 History Losartan Potassium [Cozaar] 25 mg PO HS 05/01/21 08/03/21 History Lovastatin [Mevacor] 20 mg PO HS 05/01/21 08/03/21 History Memantine [Namenda] 20 mg PO HS 05/01/21 08/03/21 History metFORMIN HCL ER [Glucophage XR] 500 mg PO DAILY@1200 05/01/21 08/03/21 History Apixaban [Eliquis] 5 mg PO BID #60 tab 05/05/21 08/03/21 Rx Acetaminophen/Diphenhydramine 1 tab PO HS 08/03/21 08/03/21 History [Tylenol PM 500-25mg] Amiodarone [Cordarone] 200 mg PO DAILY 08/03/21 08/03/21 History Furosemide [Lasix] 20 mg PO DAILY 08/03/21 08/03/21 History Ipratropium-Albuterol Nebulize 3 ml INHALATION RT-QID PRN 08/03/21 08/03/21 H istory [Duoneb 0.5 mg-3 mg/3 ml Soln] Allergies Allergy/AdvReac Type Severity Reaction Status Date / Time Sulfa (Sulfonamide Allergy Rash/Hives Verified 08/03/21 14:48 Antibiotics) Physical Exam Vitals: Vital Signs Temp Pulse Pulse Resp BP BP Pulse Ox 08/05/21 08:00 75 08/05/21 07:45 97.9 F 75 18 157/67 98 08/05/21 04:00 97.7 F 86 18 128/60 93 L 08/05/21 00:00 97.5 F L 77 18 134/80 97 08/04/21 20:00 97.4 F L 71 20 146/65 98 08/04/21 16:00 97.7 F 72 20 142/67 98 08/04/21 11:49 75 20 146/65 95 08/04/21 10:37 74 18 163/69 98 Intake and Output 08/04/21 08/05/21 08/05/21 22:59 06:59 14:59 Intake Total 190 240 Balance 190 240 Intake: IV 10 Invasive Line 1 10 Oral 180 240 Other: Voiding Method Toilet Toilet # Voids 1 1 2 Weight 87.3 kg Results 08/05/21 08:14 08/05/21 08:14 CBC 08/05/21 Range/Units 08:14 WBC 4.0 (3.8-10.6) k/uL RBC 2.68 L (3.80-5.40) m/uL Hgb 6.8 L* (11.4-16.0) gm/dL Hct 22.3 L (34.0-46.0) % Plt Count 239 (150-450) k/uL Comprehensive Metabolic Panel 08/05/21 Range/Units 08:14 Sodium 138 (137-145) mmol/L Potassium 5.0 (3.5-5.1) mmol/L Chloride 109 H (98-107) mmol/L Carbon Dioxide 23 (22-30) mmol/L BUN 23 H (7-17) mg/dL Creatinine 1.24 H (0.52-1.04) mg/dL Glucose 167 H (74-99) mg/dL Calcium 9.1 (8.4-10.2) mg/dL Current Medications Generic Name Dose Route Start Last Admin Trade Name Freq PRN Reason Stop Dose Admin Albuterol/Ipratropium 3 ml 08/04/21 08:30 Ipratropium-Albuterol 3 Ml Neb INHALATION RT-QID PRN Shortness Of Breath Or Wheezing Amiodarone HCl 200 mg 08/04/21 09:00 08/05/21 08:48 Amiodarone 200 Mg Tab PO 200 mg DAILY ALTHEA Administration Atorvastatin Calcium 20 mg 08/04/21 21:00 08/04/21 21:46 Atorvastatin 20 Mg Tab PO 20 mg HS ALTHEA Administration Furosemide 20 mg 08/04/21 09:00 08/05/21 08:48 Furosemide 20 Mg Tab PO 20 mg DAILY ALTHEA Administration Glipizide 10 mg 08/04/21 09:00 08/05/21 08:48 Glipizide 10 Mg Tab PO 10 mg BID ALTHEA Administration Losartan Potassium 25 mg 08/04/21 09:00 08/05/21 08:48 Losartan 25 Mg Tab PO 25 mg DAILY ALTHEA Administration Memantine 20 mg 08/04/21 21:00 08/04/21 21:46 Memantine 10 Mg Tab PO 20 mg HS ALTHEA Administration Metformin HCl 500 mg 08/04/21 09:00 08/05/21 08:48 Metformin 500 Mg Tab PO 500 mg DAILY ALTHEA Administration Naloxone HCl 0.2 mg 08/03/21 14:14 Naloxone 0.4 Mg/Ml 1 Ml Vial IV Q2M PRN Opioid Reversal Pantoprazole Sodium 40 mg 08/04/21 10:15 08/05/21 08:48 Pantoprazole 40 Mg/10 Ml Vial IVP 40 mg BID ALTHEA Administration Intake and Output 08/04/21 08/05/21 08/05/21 22:59 06:59 14:59 Intake Total 190 240 Balance 190 240 Intake: IV 10 Invasive Line 1 10 Oral 180 240 Other: Voiding Method Toilet Toilet # Voids 1 1 2 Weight 87.3 kg 08/05/21 08:14 08/05/21 08:14
[2021-08-05 11:38] LABS: Glucose,Whole Blood 116 mg/dL (75-99)
--- NOTE | 2021-08-05 14:56 | P.PN ---
Subjective Progress Note Date: 08/05/21 Patient seen undergoing an echocardiogram her hemoglobin is stable at 6.8 without any reoccurrence of GI bleed. GI and cardiac evaluation is currently in progress. Patient has no particular complaints except for the clear liquid diet. Objective - Vital Signs Vital signs: Vital Signs Temp 97.4 F L 08/05/21 11:21 Pulse 75 08/05/21 12:01 Resp 16 08/05/21 11:21 BP 150/96 08/05/21 11:21 Pulse Ox 99 08/05/21 11:21 Intake & Output 08/04/21 08/05/21 08/05/21 18:59 06:59 18:59 Intake Total 360 10 480 Balance 360 10 480 Weight 89.811 kg 87.3 kg Intake: IV 10 Invasive Line 1 10 Oral 360 480 Blood Product 0 Rc As-1 Unit 0 [id number] Other: Voiding Method Toilet # Voids 1 1 2 - Exam GENERAL: This is a -year-old in no apparent distress at the time of examination. Pleasant and cooperative. HEENT: Head is atraumatic, normocephalic. Pupils are equal, round, and reactive to light. Sclerae anicteric. Conjunctivae are clear. Mucus membranes of the mouth are moist. Neck is supple. RESPIRATORY: Clear to auscultation. No wheezes, rales, or rhonchi. No use of accessory muscles. CARDIOVASCULAR: Regular rate and rhythm. GASTROINTESTINAL: No distention noted. Abdomen soft and round. Normal active bowel sounds auscultated x 4 quadrants. No pain or tenderness noted upon palpation. INTEGUMENTARY: No cyanosis. No jaundice. No rashes noted. No cellulitis noted. EXTREMITIES: 2+ peripheral pulses. No evidence of peripheral edema. No calf tenderness noted. NEUROLOGIC: Cranial nerves II-XII intact. PSYCHIATRIC: Awake, alert, and oriented X 3. Appropriate affect. - Labs CBC & Chem 7: 08/05/21 08:14 08/05/21 08:14 Labs: Abnormal Lab Results - Last 24 Hours (Table) 08/03/21 08/04/21 08/04/21 Range/Units 12:04 16:35 17:08 RBC (3.80-5.40) m/uL Hgb (11.4-16.0) gm/dL Hct (34.0-46.0) % MCHC (31.0-37.0) g/dL RDW (11.5-15.5) % Chloride (98-107) mmol/L BUN (7-17) mg/dL Creatinine (0.52-1.04) mg/dL Glucose (74-99) mg/dL POC Glucose (mg/dL) 67 L 122 H (75-99) mg/dL Crossmatch See Detail 08/04/21 08/05/21 08/05/21 Range/Units 19:43 08:14 08:14 RBC 2.68 L (3.80-5.40) m/uL Hgb 6.8 L* (11.4-16.0) gm/dL Hct 22.3 L (34.0-46.0) % MCHC 30.6 L (31.0-37.0) g/dL RDW 16.6 H (11.5-15.5) % Chloride 109 H (98-107) mmol/L BUN 23 H (7-17) mg/dL Creatinine 1.24 H (0.52-1.04) mg/dL Glucose 167 H (74-99) mg/dL POC Glucose (mg/dL) 171 H (75-99) mg/dL Crossmatch 08/05/21 Range/Units 11:36 RBC (3.80-5.40) m/uL Hgb (11.4-16.0) gm/dL Hct (34.0-46.0) % MCHC (31.0-37.0) g/dL RDW (11.5-15.5) % Chloride (98-107) mmol/L BUN (7-17) mg/dL Creatinine (0.52-1.04) mg/dL Glucose (74-99) mg/dL POC Glucose (mg/dL) 116 H (75-99) mg/dL Crossmatch Assessment and Plan (1) Anemia Current Visit: Yes Status: Acute Code(s): D64.9 - ANEMIA, UNSPECIFIED SNOMED Code(s): 481228661 (2) GI bleed Current Visit: Yes Status: Acute Code(s): K92.2 - GASTROINTESTINAL H EMORRHAGE, UNSPECIFIED SNOMED Code(s): 54728516 (3) JOSÉ LUIS (acute kidney injury) Current Visit: No Status: Acute Code(s): N17.9 - ACUTE KIDNEY FAILURE, UNSPECIFIED SNOMED Code(s): 85611775 Plan: Continue to follow patient's hemoglobin check echocardiogram start discharge planning
--- NOTE | 2021-08-05 15:05 | P.PN ---
Subjective Progress Note Date: 08/05/21 CHIEF COMPLAINT: Anemia HISTORY OF PRESENT ILLNESS: Patient is being followed for anemia. Her hemoglobin did go down from 7.4-6.8 she's receiving a unit of blood today. She denies any black stools or blood in her stools. She denies abdominal pain. Patient seen and evaluated by cardiology and has been cleared from cardiac standpoint for endoscopy tomorrow. Echo EF 55-60% severe pulmonary hypertensi on, mild to moderate tricuspid regurgitation. Chest x-ray Connick changes with cardiomegaly with tiny bilateral pleural effusions. Discussed with cardiology. They have discontinued her IV fluids. PHYSICAL EXAM: VITAL SIGNS: Reviewed. GENERAL: Well-developed in no acute distress. HEENT: No sclera icterus. Extraocular movements grossly intact. Moist buccal mucosa. Head is atraumatic, normocephalic. ABDOMEN: Soft. Nondistended. Nontender. NEUROLOGIC: Alert and oriented. Cranial nerves II through XII grossly intact. ASSESSMENT: 1. Acute GI bleed 2. Acute blood loss anemia PLAN: -Patient scheduled for EGD and colonoscopy on , 08/06/[address] amaya Orta prep today -Nothing by mouth after midnight -Continue Protonix -Continue to hold Eliquis -Continue to monitor CBC Physician Bilingual Call Center Representative note has been reviewed by physician. Signing provider agrees with the documented findings, assessment, and plan of care. Objective - Vital Signs Vital signs: Vital Signs Temp 97.4 F L 08/05/21 11:21 Pulse 75 08/05/21 12:01 Resp 16 08/05/21 11:21 BP 150/96 08/05/21 11:21 Pulse Ox 99 08/05/21 11:21 Intake & Output 08/04/21 08/05/21 08/05/21 18:59 06:59 18:59 Intake Total 360 10 480 Balance 360 10 480 Weight 89.811 kg 87.3 kg Intake: IV 10 Invasive Line 1 10 Oral 360 480 Blood Product 0 Rc As-1 Unit 0 [id number] Other: Voiding Method Toilet # Voids 1 1 2 - Labs CBC & Chem 7: 08/05/21 08:14 08/05/21 08:14 Labs: Abnormal Lab Results - Last 24 Hours (Table) 08/03/21 08/04/21 08/04/21 Range/Units 12:04 16:35 17:08 RBC (3.80-5.40) m/uL Hgb (11.4-16.0) gm/dL Hct (34.0-46.0) % MCHC (31.0-37.0) g/dL RDW (11.5-15.5) % Chloride (98-107) mmol/L BUN (7-17) mg/dL Creatinine (0.52-1.04) mg/dL Glucose (74-99) mg/dL POC Glucose (mg/dL) 67 L 122 H (75-99) mg/dL Crossmatch See Detail 08/04/21 08/05/21 08/05/21 Range/Units 19:43 08:14 08:14 RBC 2.68 L (3.80-5.40) m/uL Hgb 6.8 L* (11.4-16.0) gm/dL Hct 22.3 L (34.0-46.0) % MCHC 30.6 L (31.0-37.0) g/dL RDW 16.6 H (11.5-15.5) % Chloride 109 H (98-107) mmol/L BUN 23 H (7-17) mg/dL Creatinine 1.24 H (0.52-1.04) mg/dL Glucose 167 H (74-99) mg/dL POC Glucose (mg/dL) 171 H (75-99) mg/dL Crossmatch 08/05/21 Range/Units 11:36 RBC (3.80-5.40) m/uL Hgb (11.4-16.0) gm/dL Hct (34.0-46.0) % MCHC (31.0-37.0) g/dL RDW (11.5-15.5) % Chloride (98-107) mmol/L BUN (7-17) mg/dL Creatinine (0.52-1.04) mg/dL Glucose (74-99) mg/dL POC Glucose (mg/dL) 116 H (75-99) mg/dL Crossmatch
[2021-08-05 16:35] LABS: Glucose,Whole Blood 74 mg/dL (75-99)
[2021-08-05 19:59] LABS: Glucose,Whole Blood 91 mg/dL (75-99)
[2021-08-05] MEDS: ATORVASTATIN 20 MG TAB PO SCH (20:21)
[2021-08-05] MEDS: MEMANTINE 10 MG TAB PO SCH (20:21)
[2021-08-06] MEDS ORDERED: MELATONIN 1 MG TAB PO PRN (01:39)
[2021-08-06 06:08] LABS: Glucose,Whole Blood 93 mg/dL (75-99)
[2021-08-06 07:45] LABS: Anisocytosis Slight; HCT 27.2 % (34.0-46.0); Hypochromasia Marked; MCH 26.5 pg (25.0-35.0); MCHC 31.8 g/dL (31.0-37.0); MCV 83.2 fL (80.0-100.0); Mean Platelet Volume 8.1; Platelet Count 244 k/uL (150-450); Poikilocytosis Marked; RBC 3.27 m/uL (3.80-5.40); RDW 16.4 % (11.5-15.5); WBC 4.4 k/uL (3.8-10.6)
[2021-08-06 07:48] LABS: HGB 8.7 gm/dL (11.4-16.0)
[2021-08-06 07:56] LABS: Calcium 9.3 mg/dL (8.4-10.2); Potassium 4.6 mmol/L (3.5-5.1)
[2021-08-06] MEDS: metFORMIN 500 MG TAB PO SCH (08:03)
[2021-08-06] MEDS: glipiZIDE 10 MG TAB PO SCH (08:03)
[2021-08-06] MEDS: LOSARTAN 25 MG TAB PO SCH (09:18)
[2021-08-06] MEDS: AMIODARONE 200 MG TAB PO SCH (09:18)
[2021-08-06] MEDS: PANTOPRAZOLE 40 MG/10 ML VIAL IVP SCH (09:18)
[2021-08-06] MEDS: FUROSEMIDE 20 MG TAB PO SCH (09:18)
[2021-08-06 11:25] VITALS: BP 138/62; PULSE 68; RESP 16; TEMP 97.8
[2021-08-06 12:05] LABS: Glucose,Whole Blood 101 mg/dL (75-99)
--- NOTE | 2021-08-06 12:24 | P.PN ---
Subjective This is a 85-year-old female with a past medical history significant for paroxysmal atrial fibrillation on anticoagulation with Eliquis, aortic stenosis, congestive heart failure, hypertension, and hyperlipidemia. Patient follows in the office with Dr. Grande. We have been asked to see the patient in consultation for "Dr. Stevenson said Dr. Grande wanted to be consulted". Patient presented to the hospital after being notified that her hemoglobin was low from an outpatient blood draw. Patient denies any bright red blood in her stools or dark stools.She denies any chest pain or pressure. Patient's hemoglobin on admission 5.7, she received 2 units of PRBCs. Hemoglobin is now 8.7. Her Eliquis remains on hold. She is scheduled for EGD and colonoscopy today with Dr. Redman.Echocardiogram completed reveals ejection fraction 55-60%, mild aortic stenosis, mild mitral regurgitation, [id number] tricuspid regurgitation, and severe pulmonary hypertension PHYSICAL EXAM: VITAL SIGNS: Reviewed. GENERAL: Well-developed in no acute distress. HEENT: Head is normocephalic. Pupils are equal, round. Sclerae anicteric. Mucous membranes of the mouth are moist. Neck supple. No JVD or thyromegaly LUNGS: Respirations even and unlabored. Lungs essentially clear to auscultation bilaterally. HEART: Regular rate and rhythm. S1 and S2 heard. Systolic murmur noted. ABDOMEN: Soft. Nondistended. Nontender. EXTREMITIES: Normal range of motion. No clubbing or cyanosis. Peripheral pulses intact. 2-3+ bilateral lower extremity edema NEUROLOGIC: Awake and alert. Oriented x 3. ASSESSMENT: Acute GI bleed Acute blood loss anemia Paroxysmal atrial fibrillation on anticoagulation with Eliquis Chronic diastolic congestive heart failure Hypertension Hyperlipidemia Aortic stenosis PLAN: -2-D echo obtained and reviewed Resume home cardiac medications Continue to hold Eliquis. Monitor hemoglobin, Ok to hold Eliquis 1-2 weeks per GI instructions and follow up closing with Dr. Grande for further recommendation on reinitiating anticoagulation Patient scheduled for EGD and colonoscopy today There are no absolute contraindications from a cardiac standpoint for patient to undergo endoscopy today We will follow the patient as needed. Please reach out with further questions or concerns. Nurse practitioner note has been reviewed by physician. Signing provider agrees with the documented findings, assessment, and plan of care. Objective - Vital Signs Vital signs: Vital Signs Temp 97.8 F 10/07/21 11:22 Pulse 68 08/06/21 11:22 Resp 16 08/06/21 11:22 BP 138/62 08/06/21 11:22 Pulse Ox 96 08/06/21 11:22 Intake & Output 08/05/21 08/06/21 08/06/21 18:59 06:59 18:59 Intake Total 790 Output Total 500 Balance 790 -500 Weight 87.1 kg Intake: Oral 480 Blood Product 310 Rc As-1 Unit 310 [id number] Output: Urine 500 Other: Voiding Method Toilet # Voids 2 # Bowel Movements 4 - Labs CBC & Chem 7: 08/06/21 07:10 08/06/21 07:10 Labs: Abnormal Lab Results - Last 24 Hours (Table) 08/03/21 08/05/21 08/06/21 Range/Units 12:04 16:32 07:10 RBC 3.27 L (3.80-5.40) m/uL Hgb 8.7 L D (11.4-16.0) gm/dL Hct 27.2 L (34.0-46.0) % RDW 16.4 H (11.5-15.5) % BUN (7-17) mg/dL Creatinine (0.52-1.04) mg/dL POC Glucose (mg/dL) 74 L (75-99) mg/dL Crossmatch See Detail 08/06/21 08/06/21 Range/Units 07:10 12:01 RBC (3.80-5.40) m/uL Hgb (11.4-16.0) gm/dL Hct (34.0-46.0) % RDW (11.5-15.5) % BUN 19 H (7-17) mg/dL Creatinine 1.22 H (0.52-1.04) mg/dL POC Glucose (mg/dL) 101 H (75-99) mg/dL Crossmatch
--- NOTE | 2021-08-06 12:34 | P.OP ---
Date of Procedure: 08/06/21 Preoperative Diagnosis: GI bleed Postoperative Diagnosis: Mild antral gastritis Small hiatal hernia. Mild esophageal web Mild esophagitis Severe diverticulosis External hemorrhoids Procedure(s) Performed: EGD Colonoscopy Anesthesia: MAC Surgeon: Segundo Redman Pathology: other (Antrum) Condition: stable Disposition: PACU Description of Procedure: Patient's placed on the endoscopy table in the lateral position. She received IV sedation. The gastroscope was placed oropharynx passed in the esophagus into the stomach. Scope was then placed through the pylorus. The first and second portion of the duodenum appeared normal. Scope was then brought back the antrum this was mildly inflamed. A biopsies performed. The scope was unretroflexed and remainder of the stomach appeared normal. The patient a very small hiatal hernia. The GE junction was at 38 cm. The distal esophagus minimal inflamed. There is evidence of a slight esophageal web. The proximal esophagus appeared normal. Scope was withdrawn for patient. Next digital rectal exam was performed. External hemorrhoids. The flexible colonoscope was then placed patient anus passed in the rectum and the sigmoid colon. The sigmoid colon was quite tortuous. There is extensive diverticular changes. Scope passed into the left colon due to tortuosity the sigmoid colon. At this point scope withdrawn. The rectum. Normal. Scope was withdrawn for patient. There is no evidence of any active GI bleed. Preserve the patient's anemia may be due to esophagitis, diverticular bleed or hemorrhoids.
[2021-08-06] MEDS ORDERED: SODIUM CHLORIDE 0.9% 500 ML 500 ML IV ONE (12:39)
--- NOTE | 2021-08-06 15:14 | P.DS ---
Providers Date of admission: 08/03/21 14:16 Expected date of discharge: 08/06/21 Attending physician: Segundo Redman Consults: 08/03/21 14:14 Consult Physician Routine Consulting Provider: Ja Stevenson Consult Reason/Comments: Gi bleed, medical consult Do you want consulting provider notified?: Yes 08/04/21 08:45 Consult Physician Stat Consulting Provider: Pilo Grande Consult Reason/Comments: Dr. Stevenson said Dr. Grande wanted to be consulted. Do you want consulting provider notified?: Yes Primary care physician: Ja Stevenson Hospital Course: Discharge diagnosis 1. Acute GI bleed likely secondary to micro diverticular bleed, esophagitis or hemorrhoids 2. Acute blood loss anemia secondary to above Hospital course This is a 85-year-old female who presented to the hospital due to outpatient labs which he will now 5.4. She takes Eliquis at home. She denies any black stools or blood in her stools. She underwent EGD and colonoscopy with results showing mild antral gastritis, small hiatal hernia, mild esophageal web, mild esophagitis, severe diverticulosis and external hemorrhoids. Scopes did not show any active signs of bleeding. Patient did require blood transfusion during this admission. Her hemoglobin at discharge is 8.7. Patient denies any pain. She's tolerating diet. She is up and ambulating. She is stable for discharge. Dr. Redman has okayed patient to resume her Eliquis. Patient also be discharged home with Protonix. Patient is stable for discharge. Please refer to chart for any further details. Physician Pipe Stripper note has been reviewed by physician. Signing provider agrees with the documented findings, assessment, and plan of care. Patient Condition at Discharge: Stable Plan - Discharge Summary Discharge Rx Participant: No New Discharge Prescriptions: Continue glipiZIDE [Glipizide] 10 mg PO BID metFORMIN HCL ER [Glucophage XR] 500 mg PO DAILY@1200 Losartan Potassium [Cozaar] 25 mg PO HS Apixaban [Eliquis] 5 mg PO BID #60 tab Furosemide [Lasix] 20 mg PO DAILY Acetaminophen/Diphenhydramine [Tylenol PM 500-25mg] 1 tab PO HS Amiodarone [Cordarone] 200 mg PO DAILY Memantine [Namenda] 20 mg PO HS Lovastatin [Mevacor] 20 mg PO HS Ipratropium-Albuterol Nebulize [Duoneb 0.5 mg-3 mg/3 ml Soln] 3 ml INHALATION RT-QID PRN PRN Reason: Shortness Of Breath Discharge Medication List glipiZIDE [Glipizide] 10 mg PO BID 04/15/17 [History] Losartan Potassium [Cozaar] 25 mg PO HS 05/01/21 [History] Lovastatin [Mevacor] 20 mg PO HS 05/01/21 [History] Memantine [Namenda] 20 mg PO HS 05/01/21 [History] metFORMIN HCL ER [Glucophage XR] 500 mg PO DAILY@1200 05/01/21 [History] Apixaban [Eliquis] 5 mg PO BID #60 tab 05/05/21 [Rx] Acetaminophen/Diphenhydramine [Tylenol PM 500-25mg] 1 tab PO HS 08/03/21 [History] Amiodarone [Cordarone] 200 mg PO DAILY 08/03/21 [History] Furosemide [Lasix] 20 mg PO DAILY 08/03/21 [History] Ipratropium-Albuterol Nebulize [Duoneb 0.5 mg-3 mg/3 ml Soln] 3 ml INHALATION RT-QID PRN 08/03/21 [History] Follow up Appointment(s)/Referral(s): [facility], [NON-STAFF] - Pilo Grande MD [STAFF PHYSICIAN] - 1 Week Ja Stevenson DO [Primary Care Provider] - 1-2 days Segundo Redman MD [STAFF PHYSICIAN] - 1 Week Discharge Disposition: HOME SELF-CARE
--- NOTE | 2021-08-06 18:55 | P.PN ---
Subjective Progress Note Date: 08/06/21 Patient seen today had her prep last night without incident she is very stable and awaiting EGD and colonoscopy.. If patient tolerates the procedure and everything is deemed stable she could be discharged medically later on today. Objective - Vital Signs Vital signs: Vital Signs Temp 97.8 F 08/06/21 11:22 Pulse 68 08/06/21 11:22 Resp 16 08/06/21 11:22 BP 138/62 08/06/21 11:22 Pulse Ox 96 08/06/21 11:22 Intake & Output 08/05/21 08/06/21 08/06/21 18:59 06:59 18:59 Intake Total 790 340 Output Total 500 Balance 790 -500 340 Weight 87.1 kg Intake: IV 100 Oral 480 240 Blood Product 310 Rc As-1 Unit 310 [id number] Output: Urine 500 Other: Voiding Method Toilet # Voids 2 4 # Bowel Movements 4 - Exam GENERAL: This is a -year-old in no apparent distress at the time of examination. Pleasant and cooperative. HEENT: Head is atraumatic, normocephalic. Pupils are equal, round, and reactive to light. Sclerae anicteric. Conjunctivae are clear. Mucus membranes of the mouth are moist. Neck is supple. RESPIRATORY: Clear to auscultation. No wheezes, rales, or rhonchi. No use of accessory muscles. CARDIOVASCULAR: Regular rate and rhythm. GASTROINTESTINAL: No distention noted. Abdomen soft and round. Normal active bowel sounds auscultated x 4 quadrants. No pain or tenderness noted upon palpation. INTEGUMENTARY: No cyanosis. No jaundice. No rashes noted. No cellulitis noted. EXTREMITIES: 2+ peripheral pulses. No evidence of peripheral edema. No calf ten derness noted. NEUROLOGIC: Cranial nerves II-XII intact. PSYCHIATRIC: Awake, alert, and oriented X 3. Appropriate affect. - Labs CBC & Chem 7: 08/06/21 07:10 08/06/21 07:10 Labs: Abnormal Lab Results - Last 24 Hours (Table) 08/06/21 08/06/21 08/06/21 Range/Units 07:10 07:10 12:01 RBC 3.27 L (3.80-5.40) m/uL Hgb 8.7 L D (11.4-16.0) gm/dL Hct 27.2 L (34.0-46.0) % RDW 16.4 H (11.5-15.5) % BUN 19 H (7-17) mg/dL Creatinine 1.22 H (0.52-1.04) mg/dL POC Glucose (mg/dL) 101 H (75-99) mg/dL Assessment and Plan (1) Anemia Status: Acute Code(s): D64.9 - ANEMIA, UNSPECIFIED SNOMED Code(s): 326455456 (2) GI bleed Status: Acute Code(s): K92.2 - GASTROINTESTINAL HEMORRHAGE, UNSPECIFIED SNOMED Code(s): 22477187 (3) JOSÉ LUIS (acute kidney injury) Status: Acute Code(s): N17.9 - ACUTE KIDNEY FAILURE, UNSPECIFIED SNOMED Code(s): 27655875 Plan: EGD and colonoscopy today if stable patient could be discharged with close follow-up as an outpatient.
== END 2021-08-06 15:46 | disposition home or self-care (01) | DRG 368 ==
LOC: EC 11:47 → 3SCARD 14:16
PROVIDERS: ADMIT Surgery; ATTEND Surgery
PROC: 0DB68ZX Excision of Stomach, Via Natural or Artificial Opening Endoscopic, Diagnostic (ICD-10-PCS; principal; 2021-08-06 12:05)
PROC: 0DJD8ZZ Inspection of Lower Intestinal Tract, Via Natural or Artificial Opening Endoscopic (ICD-10-PCS; 2021-08-06 12:05)
DX: K20.91 Esophagitis, unspecified with bleeding (principal); K57.31 Diverticulosis of large intestine without perforation or abscess with bleeding; Q39.4 Esophageal web; I50.32 Chronic diastolic (congestive) heart failure; D62 Acute posthemorrhagic anemia; N17.9 Acute kidney failure, unspecified; K29.70 Gastritis, unspecified, without bleeding; E11.9 Type 2 diabetes mellitus without complications; E78.5 Hyperlipidemia, unspecified; Z20.822 Contact with and (suspected) exposure to COVID-19; I27.20 Pulmonary hypertension, unspecified; I48.0 Paroxysmal atrial fibrillation; I08.3 Combined rheumatic disorders of mitral, aortic and tricuspid valves; I11.0 Hypertensive heart disease with heart failure; K64.4 Residual hemorrhoidal skin tags; K44.9 Diaphragmatic hernia without obstruction or gangrene; Z79.01 Long term (current) use of anticoagulants; Z79.4 Long term (current) use of insulin; Z79.82 Long term (current) use of aspirin; Z79.899 Other long term (current) drug therapy; Z82.49 Family history of ischemic heart disease and other diseases of the circulatory system; Z86.010 Personal history of colon polyps; Z87.891 Personal history of nicotine dependence; Z90.710 Acquired absence of both cervix and uterus; Z98.890 Other specified postprocedural states; Z86.11 Personal history of tuberculosis
CPT/HCPCS: 36415; 43239; 45378; 71045; 80048; 80053; 82272; 85025; 85027; 85610; 85730; 86850; 86900; 86901; 86920; 87635; 88305; 93005; 93306; 96374; 99284

== ENCOUNTER 2021-08-29 16:04 | Inpatient (IN) | payer MEDICARE ==
[2021-08-29] MEDS ORDERED: ALBUTEROL NEBULIZED 2.5 MG/3 ML INHALATION STA ×2 (16:33→18:30)
[2021-08-29] MEDS ORDERED: IPRATROPIUM 0.5 MG/2.5 ML NEBU INHALATION STA (16:33)
--- NOTE | 2021-08-29 16:40 | ED ---
General Adult HPI - General Chief complaint: Shortness of Breath Stated complaint: SOB Time Seen by Provider: 08/29/21 16:19 Source: patient, RN notes reviewed, old records reviewed Mode of arrival: wheelchair Limitations: no limitations - History of Present Illness Initial comments: 86-year-old female presenting for evaluation of cough, dyspnea, congestion. Patient states she has been sick for approximately one week. Her entire family has similar respiratory illness. She denies fever. She denies central chest pain. Denies lower extremity pain or swelling. She has been vaccinated against coronavirus. In December of this year. - Related Data Home Medications Medication Instructions Recorded Confirmed glipiZIDE [Glipizide] 10 mg PO BID 04/15/17 08/03/21 Losartan Potassium [Cozaar] 25 mg PO HS 05/01/21 08/03/21 Lovastatin [Mevacor] 20 mg PO HS 05/01/21 08/03/21 Memantine [Namenda] 20 mg PO HS 05/01/21 08/03/21 metFORMIN HCL ER [Glucophage XR] 500 mg PO DAILY@1200 05/01/21 08/03/21 Acetaminophen/Diphenhydramine 1 tab PO HS 08/03/21 08/03/21 [Tylenol PM 500-25mg] Amiodarone [Cordarone] 200 mg PO DAILY 08/03/21 08/03/21 Previous Rx's Medication Instructions Recorded Apixaban [Eliquis] 5 mg PO BID #60 tab 05/05/21 Allergies Allergy/AdvReac Type Severity Reaction Status Date / Time Sulfa (Sulfonamide Allergy Rash/Hives Verified 08/29/21 18:50 Antibiotics) Review of Systems ROS Statement: Those systems with pertinent positive or pertinent negative responses have been documented in the HPI. ROS Other: All systems not noted in ROS Statement are negative. 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 History of Any Multi-Drug Resistant Organisms: None Reported Past Surgical History: Hysterectomy Additional Past Surgical History / Comment(s): partial lung removal at [facility] Past Anesthesia/Blood Transfusion Reactions: No Reported Reaction Past Psychological History: No Psychological Hx Reported Smoking Status: Former smoker Past Alcohol Use History: None Reported Past Drug Use History: None Reported - Past Family History Mother Family Medical History: Cancer Father Family Medical History: Myocardial Infarction ([place]) General Exam Limitations: no limitations General appearance: alert, in distress (Mild respiratory) Head exam: Present: atraumatic, normocephalic Eye exam: Present: normal appearance, PERRL ENT exam: Present: normal exam Neck exam: Present: normal inspection. Absent: tenderness, meningismus Respiratory exam: Present: respiratory distress, wheezes, rhonchi, decreased b reath sounds Cardiovascular Exam: Present: regular rate, normal rhythm GI/Abdominal exam: Present: soft. Absent: distended, tenderness, guarding Extremities exam: Present: normal inspection, normal capillary refill. Absent: pedal edema Neurological exam: Present: alert, oriented X3, CN II-XII intact. Absent: motor sensory deficit Psychiatric exam: Present: normal affect, normal mood Skin exam: Present: warm, dry, intact. Absent: cyanosis, diaphoretic Course Vital Signs 08/29/21 08/29/21 08/29/21 16:06 16:09 17:21 Temperature 97.8 F Pulse Rate 91 81 Respiratory 20 24 18 Rate Blood Pressure 132/58 O2 Sat by Pulse 87 L Oximetry 08/29/21 08/29/21 17:31 18:49 Temperature Pulse Rate 84 81 Respiratory 18 18 Rate Blood Pressure 136/56 O2 Sat by Pulse 100 Oximetry EKG Findings - EKG Comments: EKG Findings:: EKG: Normal sinus rhythm, low voltage, rate of 84, FL interval 1 70, QRS duration 112, QTC 475, no ST segment elevation. Medical Decision Making - Medical Decision Making 86-year-old female presenting with cough, dyspnea. Patient has bilateral wheezing and Rales. She does have a history of CHF. Chest x-ray showing some pulmonary fibrosis without large focal pneumonia or acute findings. She has normal white blood cell count, stable hemoglobin at 7.4. Potassium is 6.3 which is treated with albuterol, Lasix, Kayexalate and calcium gluconate. She has an elevated BNP at 4000. She will be admitted for treatment of a combination of reactive airway, and congestive heart failure. Case discussed with Dr. Pimentel who will admit. - Lab Data Result diagrams: 08/29/21 17:38 08/29/21 17:38 Lab Results 10/30/21 10/30/21 10/30/21 Range/Units 17:38 17:38 17:38 WBC 7.2 (3.8-10.6) k/uL RBC 2.87 L (3.80-5.40) m/uL Hgb 7.4 L (11.4-16.0) gm/dL Hct 25.1 L (34.0-46.0) % MCV 87.3 (80.0-100.0) fL MCH 25.7 (25.0-35.0) pg MCHC 29.4 L (31.0-37.0) g/dL RDW 18.6 H (11.5-15.5) % Plt Count 240 (150-450) k/uL MPV 9.2 Neutrophils % 84 % Lymphocytes % 9 % Monocytes % 4 % Eosinophils % 0 % Basophils % 0 % Neutrophils # 6.0 (1.3-7.7) k/uL Lymphocytes # 0.7 L (1.0-4.8) k/uL Monocytes # 0.3 (0-1.0) k/uL Eosinophils # 0.0 (0-0.7) k/uL Basophils # 0.0 (0-0.2) k/uL Hypochromasia Marked Poikilocytosis Slight Anisocytosis Slight Sodium 137 (137-145) mmol/L Potassium 6.3 H* (3.5-5.1) mmol/L Chloride 109 H (98-107) mmol/L Carbon Dioxide 20 L (22-30) mmol/L Anion Gap 8 mmol/L BUN 43 H (7-17) mg/dL Creatinine 1.24 H (0.52-1.04) mg/dL Est GFR (CKD-EPI)AfAm 45 (>60 ml/min/1.73 sqM) Est GFR (CKD-EPI)NonAf 39 (>60 ml/min/1.73 sqM) Glucose 231 H (74-99) mg/dL Plasma Lactic Acid Ronny 1.2 (0.7-2.0) mmol/L Calcium 9.1 (8.4-10.2) mg/dL Magnesium 1.9 (1.6-2.3) mg/dL Total Bilirubin 0.4 (0.2-1.3) mg/dL AST 30 (14-36) U/L ALT 15 (4-34) U/L Alkaline Phosphatase 64 (38-126) U/L Troponin I (0.000-0.034) ng/mL NT-Pro-B Natriuret Pep pg/mL Total Protein 6.5 (6.3-8.2) g/dL Albumin 3.9 (3.5-5.0) g/dL Coronavirus (PCR) (Not Detectd) 08/29/21 08/29/21 08/29/21 Range/Units 17:38 17:38 18:44 WBC (3.8-10.6) k/uL RBC (3.80-5.40) m/uL Hgb (11.4-16.0) gm/dL Hct (34.0-46.0) % MCV (80.0-100.0) fL MCH (25.0-35.0) pg MCHC (31.0-37.0) g/dL RDW (11.5-15.5) % Plt Count (150-450) k/uL MPV Neutrophils % % Lymphocytes % % Monocytes % % Eosinophils % % Basophils % % Neutrophils # (1.3-7.7) k/uL Lymphocytes # (1.0-4.8) k/uL Monocytes # (0-1.0) k/uL Eosinophils # (0-0.7) k/uL Basophils # (0-0.2) k/uL Hypochromasia Poikilocytosis Anisocytosis Sodium (137-145) mmol/L Potassium (3.5-5.1) mmol/L Chloride (98-107) mmol/L Carbon Dioxide (22-30) mmol/L Anion Gap mmol/L BUN (7-17) mg/dL Creatinine (0.52-1.04) mg/dL Est GFR (CKD-EPI)AfAm (>60 ml/min/1.73 sqM) Est GFR (CKD-EPI)NonAf (>60 ml/min/1.73 sqM) Glucose (74-99) mg/dL Plasma Lactic Acid Ronny (0.7-2.0) mmol/L Calcium (8.4-10.2) mg/dL Magnesium (1.6-2.3) mg/dL Total Bilirubin (0.2-1.3) mg/dL AST (14-36) U/L ALT (4-34) U/L Alkaline Phosphatase (38-126) U/L Troponin I 0.026 (0.000-0.034) ng/mL NT-Pro-B Natriuret Pep 4030 pg/mL Total Protein (6.3-8.2) g/dL Albumin (3.5-5.0) g/dL Coronavirus (PCR) Not Detected (Not Detectd) Disposition Clinical Impression: Acute exacerbation of chronic obstructive pulmonary disease, Congestive heart failure, Hyperkalemia Disposition: ADMITTED IP TO THIS [facility] Condition: Stable Is patient prescribed a controlled substance at d/c from ED?: No Referrals: Ja Stevenson DO [Primary Care Provider] - 1-2 days Decision to Admit Reason: Admit from EC Decision Date: 08/29/21 Decision Time: 19:33
--- NOTE | 2021-08-29 17:25 | XR ---
EXAMINATION TYPE: XR chest 2V DATE OF EXAM: 08/29/2021 COMPARISON: 08/04/2021 HISTORY: Short of breath TECHNIQUE: Single view FINDINGS: There is no heart failure nor confluent pneumonic infiltrate. There is some coarsening of t he lung markings. Costophrenic angles are clear. Thoracic aorta is atheromatous. There is some spurri ng in the thoracic spine. IMPRESSION: No active cardiopulmonary disease. Normal heart, vomiting fibrosis. Inspiration improved compared to old exam.
[2021-08-29 18:01] LABS: Anisocytosis Slight; Basophils % (A) 0 %; Eosinophils % (A) 0 %; HCT 25.1 % (34.0-46.0); HGB 7.4 gm/dL (11.4-16.0); Hypochromasia Marked; Lymphocytes # (A) 0.7 k/uL (1.0-4.8); Lymphocytes % (A) 9 %; MCH 25.7 pg (25.0-35.0); MCHC 29.4 g/dL (31.0-37.0); MCV 87.3 fL (80.0-100.0); Mean Platelet Volume 9.2; Monocytes # (A) 0.3 k/uL (0-1.0); Monocytes % (A) 4 %; Neutrophils % (A) 84 %; Platelet Count 240 k/uL (150-450); Poikilocytosis Slight; RBC 2.87 m/uL (3.80-5.40); RDW 18.6 % (11.5-15.5); WBC 7.2 k/uL (3.8-10.6)
[2021-08-29 18:20] LABS: Albumin 3.9 g/dL (3.5-5.0); Calcium 9.1 mg/dL (8.4-10.2); Magnesium 1.9 mg/dL (1.6-2.3); Total Bilirubin 0.4 mg/dL (0.2-1.3); Total Protein 6.5 g/dL (6.3-8.2)
[2021-08-29 18:24] LABS: Potassium 6.3 mmol/L (3.5-5.1)
[2021-08-29] MEDS ORDERED: IPRATROPIUM-ALBUTEROL 3 ML NEB INHALATION STA (18:30)
[2021-08-29] MEDS ORDERED: CALCIUM GLUCONATE 1 GM in SODIUM CHLORIDE 0.9% 100 ML IVPB ONE (18:31)
[2021-08-29] MEDS ORDERED: FUROSEMIDE 10 MG/ML 4 ML VIAL IV STA (18:51)
[2021-08-29 19:02] LABS: Prothrombin Time 10.9 sec (9.0-12.0)
[2021-08-29] MEDS ORDERED: NALOXONE 0.4 MG/ML 1 ML VIAL IV PRN (19:20)
[2021-08-29] MEDS ORDERED: ACETAMINOPHEN TAB 325 MG TAB PO PRN (19:20)
[2021-08-29] MEDS ORDERED: SODIUM POLYSTYRENE SULFONATE 15 GM/60 ML BOTTLE PO STA (19:25)
[2021-08-29 19:40] LABS: Partial Thromboplastin Time 20.9 sec (22.0-30.0)
[2021-08-29] MEDS: IPRATROPIUM-ALBUTEROL 3 ML NEB INHALATION SCH (20:21)
[2021-08-29] MEDS: FUROSEMIDE 10 MG/ML 4 ML VIAL IV SCH (21:54)
[2021-08-29 22:28] LABS: ALT 17 U/L (4-34); AST 25 U/L (14-36); African American GFR (CKD) 46 (>60 ml/min/1.73 sqM); Albumin 3.6 g/dL (3.5-5.0); Albumin/Globulin Ratio 1.5; Alkaline Phosphatase 61 U/L (38-126); Anion Gap 11 mmol/L; Blood Urea Nitrogen 41 mg/dL (7-17); Calcium 8.9 mg/dL (8.4-10.2); Carbon Dioxide 18 mmol/L (22-30); Chloride 108 mmol/L (98-107); Globulin 2.4 g/dL; Glucose 302 mg/dL (74-99); Non-African American GFR(CKD) 40 (>60 ml/min/1.73 sqM); Potassium 4.9 mmol/L (3.5-5.1); Sodium 137 mmol/L (137-145); Total Bilirubin 0.2 mg/dL (0.2-1.3)
[2021-08-30 00:32] LABS: Glucose,Whole Blood 294 mg/dL (75-99)
[2021-08-30] MEDS: IPRATROPIUM-ALBUTEROL 3 ML NEB INHALATION PRN (04:06)
[2021-08-30 04:22] LABS: Glucose,Whole Blood 169 mg/dL (75-99)
[2021-08-30 07:19] LABS: Glucose,Whole Blood 189 mg/dL (75-99)
[2021-08-30] MEDS ORDERED: INSULIN ASPART (NovoLOG) 100 UNIT/ML VIAL SQ SCH (07:30)
[2021-08-30] MEDS: FUROSEMIDE 10 MG/ML 4 ML VIAL IV SCH (08:33)
[2021-08-30] MEDS: IPRATROPIUM-ALBUTEROL 3 ML NEB INHALATION SCH ×4 (08:34→19:49)
[2021-08-30] MEDS ORDERED: predniSONE 50 MG TAB PO SCH (09:00)
[2021-08-30 09:40] LABS: ALT 12 U/L (8-44); AST 16 U/L (13-35); African American GFR (CKD) 35.9 (60.0-200.0); Albumin 3.7 g/dL (3.8-4.9); Albumin/Globulin Ratio 1.95 (1.60-3.17); Alkaline Phosphatase 67 U/L (41-126); BUN/Creat Ratio 29.07 Ratio (12.00-20.00); Blood Urea Nitrogen 43.6 mg/dL (9.0-27.0); Calcium 8.7 mg/dL (8.7-10.3); Chloride 108 mmol/L (96-109); Globulin 1.9 g/dL (1.6-3.3); Glucose 160 mg/dL (70-110); Potassium 4.5 mmol/L (3.5-5.5); Sodium 142 mmol/L (135-145); Total Bilirubin <0.20 mg/dL (0.30-1.20); Total Protein 5.6 g/dL (6.2-8.2)
[2021-08-30] MEDS ORDERED: APIXABAN 5 MG TAB PO SCH (09:45)
[2021-08-30 10:08] LABS: Basophils # (A) 0.02 X 10*3/uL (0.00-0.10); Basophils % (A) 0.3 %; Eosinophils # (A) 0.04 X 10*3/uL (0.04-0.35); Eosinophils % (A) 0.6 %; HCT 21.8 % (37.2-46.3); Lymphocytes # (A) 1.02 X 10*3/uL (0.90-5.00); Lymphocytes % (A) 14.9 %; MCH 24.7 pg (27.0-32.0); MCHC 27.5 g/dL (32.0-37.0); MCV 89.7 fL (80.0-97.0); Mean Platelet Volume 11.4 fL (9.5-12.2); Monocytes # (A) 0.67 X 10*3/uL (0.20-1.00); Monocytes % (A) 9.8 %; Neutrophils # (A) 4.98 X 10*3/uL (1.80-7.70); Neutrophils % (A) 72.5 %; Platelet Count 215 X 10*3/uL (140-440); RBC 2.43 X 10*6/uL (4.10-5.20); RDW 19.5 % (11.5-14.5); WBC 6.86 X 10*3/uL (4.50-10.00)
[2021-08-30] MEDS: AMIODARONE 200 MG TAB PO SCH (10:37)
--- NOTE | 2021-08-30 11:50 | P.HPIM ---
History of Present Illness A 69-year-old pleasant female came in with complains of a shadows of breath minimal cough without any sputum production. Patient evidently was having wheezing and on admission was started on prednisone patient doesn't have much of wheezing when I valid the patient patient does have history of CHF for the chronic diastolic dysfunction, never diagnosed with COPD did have remote history of smoking denied any fever chills chest x-ray did not show any significant abnormality. Patient given a stable 7.4 today's around 6. Patient does have oxygen stools but only 1 stool a day. RDW around 19 MCV 89.7. Patient had history of anemia in the past received blood transfusions in the past. EKG did not show any acute ST-T wave changes clinically patient doesn't have any JVD or pedal edema patient was started on IV Lasix which is being discontinued patient's creatinine is bit worse compared to yesterday 1 went up from 1.24-1.5, baseline creatinine appears to be around 0.9. Patient denied any chest pain. REVIEW OF SYSTEMS: CONSTITUTIONAL: No fever, no malaise, no fatigue. HEENT: No recent visual problems or hearing problems. Denied any sore throat. CARDIOVASCULAR: No chest pain, orthopnea, PND, no palpitations, no syncope. PULMONARY: no hemoptysis. GASTROINTESTINAL: No diarrhea, no nausea, no vomiting, no abdominal pain. NEUROLOGICAL: No headaches, no weakness, no numbness. HEMATOLOGICAL: Denies any bleeding or petechiae. GENITOURINARY: Denies any burning micturition, frequency, or urgency. MUSCULOSKELETAL/RHEUMATOLOGICAL: Denies any joint pain, swelling, or any muscle pain. ENDOCRINE: Denies any polyuria or polydipsia. The rest of the 14-point review of systems is negative. PHYSICAL EXAMINATION: GENERAL: The patient is alert and oriented x3, not in any acute distress. Well developed, well nourished. HEENT: Pupils are round and equally reacting to light. EOMI. No scleral icterus. No conjunctival pallor. Normocephalic, atraumatic. No pharyngeal erythema. No thyromegaly. CARDIOVASCULAR: S1 and S2 present. No murmurs, rubs, or gallops. PULMONARY: Minimal expiratory wheezing fairly good air entry into bilateral lung walker ABDOMEN: Soft, nontender, nondistended, normoactive bowel sounds. No palpable organomegaly. MUSCULOSKELETAL: No joint swelling or deformity. EXTREMITIES: No cyanosis, clubbing, or pedal edema. NEUROLOGICAL: Gross neurological examination did not reveal any focal deficits. SKIN: No rashes. Assessment and plan -Shortness of breath: Secondary to anemia there is no clinical evidence of Failure There May Be a Competent of Mild COPD Exacerbation We'll Cut down the Steroids to 20 G Daily Probably This Can Be Discontinued Tomorrow. 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 No Clinical Evidence of Acute GI Bleed. -Hyperkalemia Secondary to Losartan Which Will Be Held Next - Acute Renal Failure Prerenal Azotemia Secondary to Excessive Diuretic Therapy Which Is Being Held -Congestive heart failure chronic diastolic dysfunction without any acute exacerbation at this time -Hyperlipidemia next and happened after diabetes mellitus hold off on metformin due to acute renal failure. Patient will be continued on glipizide and sliding scale insulin -History of atrial fibrillation proximal A. fib presently rate controlled. Patient will be resumed on amiodarone patient was on Eliquis at home I'll leave the decision of continuation of Eliquis to cardiology as patient has issues with recurrent anemia although there is no clear evidence of overt acute blood loss DVT prophylaxis: On Eliquis which is presently being held until evaluated by car diology Past Medical History Past Medical History: Heart Failure, Diabetes Mellitus, Pneumonia Additional Past Medical History / Comment(s): TB in 1954 History of Any Multi-Drug Resistant Organisms: None Reported Past Surgical History: Hysterectomy Additional Past Surgical History / Comment(s): partial lung removal at [facility] Past Anesthesia/Blood Transfusion Reactions: No Reported Reaction Past Psychological History: No Psychological Hx Reported Smoking Status: Former smoker Past Alcohol Use History: None Reported Past Drug Use History: None Reported - Past Family History Mother Family Medical History: Cancer Father Family Medical History: Myocardial Infarction ([place]) Medications and Allergies Home Medications Medication Instructions Recorded Confirmed Type glipiZIDE [Glipizide] 10 mg PO BID 04/15/17 08/29/21 History Losartan Potassium [Cozaar] 25 mg PO HS 05/01/21 08/29/21 History Lovastatin [Mevacor] 20 mg PO HS 05/01/21 08/29/21 History Memantine [Namenda] 20 mg PO HS 05/01/21 08/29/21 History metFORMIN HCL ER [Glucophage XR] 500 mg PO DAILY@1300 05/01/21 08/29/21 History Apixaban [Eliquis] 5 mg PO BID #60 tab 05/05/21 08/29/21 Rx Acetaminophen/Diphenhydramine 1 tab PO HS 08/03/21 08/29/21 History [Tylenol PM 500-25mg] Amiodarone [Cordarone] 200 mg PO DAILY 08/03/21 08/29/21 History Allergies Allergy/AdvReac Type Severity Reaction Status Date / Time Sulfa (Sulfonamide Allergy Rash/Hives Verified 08/29/21 18:50 Antibiotics) Physical Exam Vitals: Vital Signs Temp Pulse Pulse Resp BP BP Pulse Ox 08/30/21 08:50 80 08/30/21 08:34 80 98 08/30/21 07:00 97.6 F 78 18 123/66 98 08/30/21 04:13 80 08/30/21 04:06 73 08/30/21 02:00 20 08/30/21 00:47 97.4 F L 89 20 153/88 96 08/30/21 00:24 98.0 F 71 18 102/66 99 08/29/21 22:15 23 08/29/21 20:39 97.8 F 80 18 128/71 100 08/29/21 20:35 87 16 08/29/21 20:22 85 18 08/29/21 19:40 81 20 133/57 96 08/29/21 18:49 81 18 136/56 100 08/29/21 17:31 84 18 08/29/21 17:21 81 18 08/29/21 16:09 24 08/29/21 16:06 97.8 F 91 20 132/58 87 L Intake and Output 08/29/21 08/30/21 08/30/21 22:59 06:59 14:59 Intake Total 100 250 Balance 100 250 Intake: Oral 100 250 Other: Weight 82.554 kg 84.8 kg Results CBC & Chem 7: 08/30/21 06:08 08/30/21 06:08 Labs: Abnormal Lab Results - Last 24 Hours (Table) 08/29/21 08/29/21 08/29/21 Range/Units 17:38 17:38 18:44 RBC 2.87 L (3.80-5.40) m/uL Hgb 7.4 L (11.4-16.0) gm/dL Hct 25.1 L (34.0-46.0) % MCH (27.0-32.0) pg MCHC 29.4 L (31.0-37.0) g/dL RDW 18.6 H (11.5-15.5) % Absolute Nucleated RBC (0.00-0.00) X 10*3/uL Immature Gran # (0.00-0.04) X 10*3/uL Lymphocytes # 0.7 L (1.0-4.8) k/uL NRBC/100 WBC Diff (0.0-0.0) /100 WBCS APTT 20.9 L (22.0-30.0) sec Potassium 6.3 H* (3.5-5.1) mmol/L Chloride 109 H (98-107) mmol/L Carbon Dioxide 20 L (22-30) mmol/L Anion Gap (4.00-12.00) mmol/L BUN 43 H (7-17) mg/dL Creatinine 1.24 H (0.52-1.04) mg/dL Est GFR (CKD-EPI)AfAm (60.0-200.0) Est GFR (CKD-EPI)NonAf (60.0-200.0) BUN/Creatinine Ratio (12.00-20.00) Ratio Glucose 231 H (74-99) mg/dL POC Glucose (mg/dL) (75-99) mg/dL Total Bilirubin (0.30-1.20) mg/dL Total Protein (6.3-8.2) g/dL Albumin (3.8-4.9) g/dL 08/29/21 08/30/21 08/30/21 Range/Units 22:00 00:30 04:20 RBC (3.80-5.40) m/uL Hgb (11.4-16.0) gm/dL Hct (34.0-46.0) % MCH (27.0-32.0) pg MCHC (31.0-37.0) g/dL RDW (11.5-15.5) % Absolute Nucleated RBC (0.00-0.00) X 10*3/uL Immature Gran # (0.00-0.04) X 10*3/uL Lymphocytes # (1.0-4.8) k/uL NRBC/100 WBC Diff (0.0-0.0) /100 WBCS APTT (22.0-30.0) sec Potassium (3.5-5.1) mmol/L Chloride 108 H (98-107) mmol/L Carbon Dioxide 18 L (22-30) mmol/L Anion Gap (4.00-12.00) mmol/L BUN 41 H (7-17) mg/dL Creatinine 1.23 H (0.52-1.04) mg/dL Est GFR (CKD-EPI)AfAm (60.0-200.0) Est GFR (CKD-EPI)NonAf (60.0-200.0) BUN/Creatinine Ratio (12.00-20.00) Ratio Glucose 302 H (74-99) mg/dL POC Glucose (mg/dL) 294 H 169 H (75-99) mg/dL Total Bilirubin (0.30-1.20) mg/dL Total Protein 6.0 L (6.3-8.2) g/dL Albumin (3.8-4.9) g/dL 08/30/21 08/30/21 08/30/21 Range/Units 06:08 06:08 07:17 RBC 2.43 L (3.80-5.40) m/uL Hgb 6.0 L* (11.4-16.0) gm/dL Hct 21.8 L (34.0-46.0) % MCH 24.7 L (27.0-32.0) pg MCHC 27.5 L (31.0-37.0) g/dL RDW 19.5 H (11.5-15.5) % Absolute Nucleated RBC 0.03 H (0.00-0.00) X 10*3/uL Immature Gran # 0.13 H (0.00-0.04) X 10*3/uL Lymphocytes # (1.0-4.8) k/uL NRBC/100 WBC Diff 0.4 H (0.0-0.0) /100 WBCS APTT (22.0-30.0) sec Potassium (3.5-5.1) mmol/L Chloride (98-107) mmol/L Carbon Dioxide 21.0 L (22-30) mmol/L Anion Gap 13.00 H (4.00-12.00) mmol/L BUN 43.6 H (7-17) mg/dL Creatinine (0.52-1.04) mg/dL Est GFR (CKD-EPI)AfAm 35.9 L (60.0-200.0) Est GFR (CKD-EPI)NonAf 31.0 L (60.0-200.0) BUN/Creatinine Ratio 29.07 H (12.00-20.00) Ratio Glucose 160 H (74-99) mg/dL POC Glucose (mg/dL) 189 H (75-99) mg/dL Total Bilirubin <0.20 L (0.30-1.20) mg/dL Total Protein 5.6 L (6.3-8.2) g/dL Albumin 3.7 L (3.8-4.9) g/dL Thrombosis Risk Factor Assmnt - Choose All That Apply Any of the Below Risk Factors Present?: Yes Each Factor Represents 1 point: Acute [place] Other Risk Factors: Yes Each Risk Factor Represents 3 Points: Age 75 years or older Other congenital or acquired thrombophilia - If yes, enter type in comment: No Thrombosis Risk Factor Assessment Total Risk Factor Score: 4 Thrombosis Risk Factor Assessment Level: Moderate Risk
[2021-08-30 12:34] LABS: Glucose,Whole Blood 217 mg/dL (75-99)
[2021-08-30] MEDS: INSULIN ASPART (NovoLOG) 100 UNIT/ML VIAL SQ SCH ×3 (13:23→21:03)
--- NOTE | 2021-08-30 15:35 | P.GSCN ---
History of Present Illness Consult date: 08/30/21 History of present illness: CHIEF COMPLAINT: Anemia HISTORY OF PRESENT ILLNESS: The patient is a 86 year old female recently discharged from the hospital less than 3 weeks ago for similar episode of anemia. At that time, she had both an upper and lower endoscopy performed. She had blood transfusions for hemoglobin 5.4-8.7 after blood transfusion. She had features of sigmoid diverticulosis was identified including gastritis. She denies abdominal pain. She denies gross blood in her stools. She denies hematemesis. Patient is on blood thinner Eliquis. She presents back to the hospital due to recurrent anemia. Her hemoglobin is down to 6.0. She is undergoing blood transfusion. PAST MEDICAL HISTORY: See list and reviewed PAST SURGICAL HISTORY: See list and reviewed MEDICATIONS: See list and reviewed ALLERGIES: See list and reviewed SOCIAL HISTORY: See list and reviewed FAMILY HISTORY: See list and reviewed REVIEW OF ORGAN SYSTEMS: CONSTITUTIONAL: No fevers or chills. EYES: Denies any trouble with vision. No glasses. HEENT: No difficulties with hearing. No nosebleeds. No difficulty swallowing. RESPIRATORY: History of pneumonectomy. CARDIOVASCULAR: Has congestive heart failure.. GASTROINTESTINAL: Denies fatty food intolerance. Denies change in bowel habits and gas bloat. GENITOURINARY: Denies any blood in urine or increased urinary frequency. NEUROLOGICAL: Denies any numbness or tingling along the distal extremities. No seizure disorders or headaches. MUSCULOSKELETAL: Denies any back pain, stiffness or joint arthritis. SKIN: No current skin cancer. No rash. PSYCHIATRIC: Denies current depression or suicidal thoughts. ENDOCRINE: Denies current thyroid disorders. Has diabetes type 2, poorly controlled. HEME/LYMPHATIC: Recent anemia with blood transfusions ALLERGY/IMMUNOLOGY: No immunoglobulin therapy. No immune deficiencies. BREAST: Denies current breast lumps, pain or nipple discharge. PHYSICAL EXAM: VITALS: Reviewed CONSTITUTIONAL: Well developed and in no acute distress. EYES: Conjuctivae without sclera icterus. Extraocular movements grossly intact. HEAD, EARS, NOSE, THROAT: Moist buccal mucosa. Head is atraumatic, normocephalic. Hears conversational speech. No nasal drainage. NECK: Supple. No JV distention. No thyroidomegaly. RESPIRATORY: Non-labored respirations and equal bilateral excursions. No gross wheezes. CARDIOVASCULAR: Palpable 2+ radial pulses. ABDOMEN: Obese, nontender. LYMPH: No neck lymphadenopathy. MUSCULOSKELETAL: Nail and fingers with good capillary refill. SKIN: Warm and well perfused with good skin turgor. NEUROLOGIC: Cranial nerves II through XII grossly intact. No focal or lateralizing signs. PSYCH: Alert and oriented to person, place and time. CLINCAL LABS: Reviewed. WBC 6.8. Hemoglobin 6.0. Creatinine 1.5. Blood sugars between 290s to 200s RADIOLOGY: Report reviewed a chest x-ray demonstrates no acute pulmonary process. EKG: Revealed with septal infarct age undetermined. RECORDS: previous old records reviewed of upper or lower endoscopy demonstrating gastritis including severe sigmoid diverticulosis, July 2020 ASSESSMENT: 1. Anemia of unclear etiology 2. Status post blood transfusion PLAN: 1. She had a recent upper and lower endoscopy less than 3 weeks ago. Conservative management this time. 2. May benefit from tagged RBC scan for location of bleeding. 3. Blood transfusion for hemoglobin less than 7.0 for pre-existing heart disease. Thank you for this kind consultation. Past Medical History Past Medical History: Heart Failure, Diabetes Mellitus, Pneumonia Additional Past Medical History / Comment(s): TB in 1954 History of Any Multi-Drug Resistant Organisms: None Reported Past Surgical History: Hysterectomy Additional Past Surgical History / Comment(s): partial lung removal at [facility] Past Anesthesia/Blood Transfusion Reactions: No Reported Reaction Past Psychological History: No Psychological Hx Reported Smoking Status: Former smoker Past Alcohol Use History: None Reported Past Drug Use History: None Reported - Past Family History Mother Family Medical History: Cancer Father Family Medical History: Myocardial Infarction (DC) Medications and Allergies Home Medications Medication Instructions Recorded Confirmed Type glipiZIDE [Glipizide] 10 mg PO BID 04/15/17 08/29/21 History Losartan Potassium [Cozaar] 25 mg PO HS 05/01/21 08/29/21 History Lovastatin [Mevacor] 20 mg PO HS 05/01/21 08/29/21 History Memantine [Namenda] 20 mg PO HS 05/01/21 08/29/21 History metFORMIN HCL ER [Glucophage XR] 500 mg PO DAILY@1300 05/01/21 08/29/21 History Apixaban [Eliquis] 5 mg PO BID #60 tab 05/05/21 08/29/21 Rx Acetaminophen/Diphenhydramine 1 tab PO HS 08/03/21 08/29/21 History [Tylenol PM 500-25mg] Amiodarone [Cordarone] 200 mg PO DAILY 08/03/21 08/29/21 History Allergies Allergy/AdvReac Type Severity Reaction Status Date / Time Sulfa (Sulfonamide Allergy Rash/Hives Verified 08/29/21 18:50 Antibiotics) Surgical - Exam Vital Signs Temp Pulse Resp BP Pulse Ox 97.8 F 91 20 132/58 87 L 08/29/21 16:06 08/29/21 16:06 08/29/21 16:06 08/29/21 16:06 08/29/21 16:06 Results - Labs 08/30/21 06:08 08/30/21 06:08 Abnormal Lab Results - Last 24 Hours (Table) 08/29/21 08/29/21 08/29/21 Range/Units 17:38 17:38 18:44 RBC 2.87 L (3.80-5.40) m/uL Hgb 7.4 L (11.4-16.0) gm/dL Hct 25.1 L (34.0-46.0) % MCH (27.0-32.0) pg MCHC 29.4 L (31.0-37.0) g/dL RDW 18.6 H (11.5-15.5) % Absolute Nucleated RBC (0.00-0.00) X 10*3/uL Immature Gran # (0.00-0.04) X 10*3/uL Lymphocytes # 0.7 L (1.0-4.8) k/uL NRBC/100 WBC Diff (0.0-0.0) /100 WBCS APTT 20.9 L (22.0-30.0) sec Potassium 6.3 H* (3.5-5.1) mmol/L Chloride 109 H (98-107) mmol/L Carbon Dioxide 20 L (22-30) mmol/L Anion Gap (4.00-12.00) mmol/L BUN 43 H (7-17) mg/dL Creatinine 1.24 H (0.52-1.04) mg/dL Est GFR (CKD-EPI)AfAm (60.0-200.0) Est GFR (CKD-EPI)NonAf (60.0-200.0) BUN/Creatinine Ratio (12.00-20.00) Ratio Glucose 231 H (74-99) mg/dL POC Glucose (mg/dL) (75-99) mg/dL Total Bilirubin (0.30-1.20) mg/dL Total Protein (6.3-8.2) g/dL Albumin (3.8-4.9) g/dL Crossmatch 08/29/21 08/30/21 08/30/21 Range/Units 22:00 00:30 04:20 RBC (3.80-5.40) m/uL Hgb (11.4-16.0) gm/dL Hct (34.0-46.0) % MCH (27.0-32.0) pg MCHC (31.0-37.0) g/dL RDW (11.5-15.5) % Absolute Nucleated RBC (0.00-0.00) X 10*3/uL Immature Gran # (0.00-0.04) X 10*3/uL Lymphocytes # (1.0-4.8) k/uL NRBC/100 WBC Diff (0.0-0.0) /100 WBCS APTT (22.0-30.0) sec Potassium (3.5-5.1) mmol/L Chloride 108 H (98-107) mmol/L Carbon Dioxide 18 L (22-30) mmol/L Anion Gap (4.00-12.00) mmol/L BUN 41 H (7-17) mg/dL Creatinine 1.23 H (0.52-1.04) mg/dL Est GFR (CKD-EPI)AfAm (60.0-200.0) Est GFR (CKD-EPI)NonAf (60.0-200.0) BUN/Creatinine Ratio (12.00-20.00) Ratio Glucose 302 H (74-99) mg/dL POC Glucose (mg/dL) 294 H 169 H (75-99) mg/dL Total Bilirubin (0.30-1.20) mg/dL Total Protein 6.0 L (6.3-8.2) g/dL Albumin (3.8-4.9) g/dL Crossmatch 08/30/21 08/30/21 08/30/21 Range/Units 06:08 06:08 07:17 RBC 2.43 L (3.80-5.40) m/uL Hgb 6.0 L* (11.4-16.0) gm/dL Hct 21.8 L (34.0-46.0) % MCH 24.7 L (27.0-32.0) pg MCHC 27.5 L (31.0-37.0) g/dL RDW 19.5 H (11.5-15.5) % Absolute Nucleated RBC 0.03 H (0.00-0.00) X 10*3/uL Immature Gran # 0.13 H (0.00-0.04) X 10*3/uL Lymphocytes # (1.0-4.8) k/uL NRBC/100 WBC Diff 0.4 H (0.0-0.0) /100 WBCS APTT (22.0-30.0) sec Potassium (3.5-5.1) mmol/L Chloride (98-107) mmol/L Carbon Dioxide 21.0 L (22-30) mmol/L Anion Gap 13.00 H (4.00-12.00) mmol/L BUN 43.6 H (7-17) mg/dL Creatinine (0.52-1.04) mg/dL Est GFR (CKD-EPI)AfAm 35.9 L (60.0-200.0) Est GFR (CKD-EPI)NonAf 31.0 L (60.0-200.0) BUN/Creatinine Ratio 29.07 H (12.00-20.00) Ratio Glucose 160 H (74-99) mg/dL POC Glucose (mg/dL) 189 H (75-99) mg/dL Total Bilirubin <0.20 L (0.30-1.20) mg/dL Total Protein 5.6 L (6.3-8.2) g/dL Albumin 3.7 L (3.8-4.9) g/dL Crossmatch 08/30/21 08/30/21 Range/Units 11:55 12:32 RBC (3.80-5.40) m/uL Hgb (11.4-16.0) gm/dL Hct (34.0-46.0) % MCH (27.0-32.0) pg MCHC (31.0-37.0) g/dL RDW (11.5-15.5) % Absolute Nucleated RBC (0.00-0.00) X 10*3/uL Immature Gran # (0.00-0.04) X 10*3/uL Lymphocytes # (1.0-4.8) k/uL NRBC/100 WBC Diff (0.0-0.0) /100 WBCS APTT (22.0-30.0) sec Potassium (3.5-5.1) mmol/L Chloride (98-107) mmol/L Carbon Dioxide (22-30) mmol/L Anion Gap (4.00-12.00) mmol/L BUN (7-17) mg/dL Creatinine (0.52-1.04) mg/dL Est GFR (CKD-EPI)AfAm (60.0-200.0) Est GFR (CKD-EPI)NonAf (60.0-200.0) BUN/Creatinine Ratio (12.00-20.00) Ratio Glucose (74-99) mg/dL POC Glucose (mg/dL) 217 H (75-99) mg/dL Total Bilirubin (0.30-1.20) mg/dL Total Protein (6.3-8.2) g/dL Albumin (3.8-4.9) g/dL Crossmatch See Detail Diabetes panel 08/29/21 08/29/21 08/30/21 Range/Units 17:38 22:00 06:08 Sodium 137 137 142 (137-145) mmol/L Potassium 6.3 H* 4.9 4.5 (3.5-5.1) mmol/L Chloride 109 H 108 H 108 (98-107) mmol/L Carbon Dioxide 20 L 18 L 21.0 L (22-30) mmol/L BUN 43 H 41 H 43.6 H (7-17) mg/dL Creatinine 1.24 H 1.23 H 1.5 (0.52-1.04) mg/dL Glucose 231 H 302 H 160 H (74-99) mg/dL Calcium 9.1 8.9 8.7 (8.4-10.2) mg/dL AST 30 25 16 (14-36) U/L ALT 15 17 12 (4-34) U/L Alkaline Phosphatase 64 61 67 (38-126) U/L Total Protein 6.5 6.0 L 5.6 L (6.3-8.2) g/dL Albumin 3.9 3.6 3.7 L (3.5-5.0) g/dL Calcium panel 08/29/21 08/29/21 08/30/21 Range/Units 17:38 22:00 06:08 Calcium 9.1 8.9 8.7 (8.4-10.2) mg/dL Albumin 3.9 3.6 3.7 L (3.5-5.0) g/dL Pituitary panel 08/29/21 08/29/21 08/30/21 Range/Units 17:38 22:00 06:08 Sodium 137 137 142 (137-145) mmol/L Potassium 6.3 H* 4.9 4.5 (3.5-5.1) mmol/L Chloride 109 H 108 H 108 (98-107) mmol/L Carbon Dioxide 20 L 18 L 21.0 L (22-30) mmol/L BUN 43 H 41 H 43.6 H (7-17) mg/dL Creatinine 1.24 H 1.23 H 1.5 (0.52-1.04) mg/dL Glucose 231 H 302 H 160 H (74-99) mg/dL Calcium 9.1 8.9 8.7 (8.4-10.2) mg/dL Adrenal panel 08/29/21 08/29/21 08/30/21 Range/Units 17:38 22:00 06:08 Sodium 137 137 142 (137-145) mmol/L Potassium 6.3 H* 4.9 4.5 (3.5-5.1) mmol/L Chloride 109 H 108 H 108 (98-107) mmol/L Carbon Dioxide 20 L 18 L 21.0 L (22-30) mmol/L BUN 43 H 41 H 43.6 H (7-17) mg/dL Creatinine 1.24 H 1.23 H 1.5 (0.52-1.04) mg/dL Glucose 231 H 302 H 160 H (74-99) mg/dL Calcium 9.1 8.9 8.7 (8.4-10.2) mg/dL Total Bilirubin 0.4 0.2 <0.20 L (0.2-1.3) mg/dL AST 30 25 16 (14-36) U/L ALT 15 17 12 (4-34) U/L Alkaline Phosphatase 64 61 67 (38-126) U/L Total Protein 6.5 6.0 L 5.6 L (6.3-8.2) g/dL Albumin 3.9 3.6 3.7 L (3.5-5.0) g/dL Assessment and Plan (1) Acute blood loss anemia Current Visit: Yes Status: Acute Code(s): D62 - ACUTE POSTHEMORRHAGIC ANEMIA SNOMED Code(s): 141498845 (2) Congestive heart failure Current Visit: Yes Status: Acute Code(s): I50.9 - HEART FAILURE, UNSPECIFIED SNOMED Code(s): 41939840 (3) GI bleed Current Visit: No Status: Acute Code(s): K92.2 - GASTROINTESTINAL HEMORRHAGE, UNSPECIFIED SNOMED Code(s): 65789336
[2021-08-30 17:25] LABS: Glucose,Whole Blood 508 mg/dL (75-99)
[2021-08-30 17:25] LABS: Glucose,Whole Blood 508 mg/dL (75-99)
[2021-08-30] MEDS ORDERED: metFORMIN 500 MG TAB PO SCH (17:30)
[2021-08-30] MEDS ORDERED: glipiZIDE 5 MG TAB PO SCH (17:30)
[2021-08-30 17:51] LABS: Glucose,Whole Blood 498 mg/dL (75-99)
[2021-08-30] MEDS ORDERED: INSULIN ASPART (NovoLOG) 100 UNIT/ML VIAL SQ ONE (18:03)
[2021-08-30] MEDS: glipiZIDE 10 MG TAB PO SCH (18:06)
[2021-08-30 20:22] LABS: Glucose,Whole Blood 431 mg/dL (75-99)
[2021-08-30] MEDS ORDERED: LOSARTAN 25 MG TAB PO SCH (21:00)
[2021-08-30] MEDS ORDERED: MEMANTINE 10 MG TAB PO SCH (21:00)
[2021-08-30] MEDS ORDERED: INSULIN DETEMIR (LEVEMIR) 100 UNIT/ML SYR SQ ONE (21:00)
[2021-08-30] MEDS: ATORVASTATIN 10 MG TAB PO SCH (21:03)
[2021-08-31 00:57] LABS: Glucose,Whole Blood 178 mg/dL (75-99)
[2021-08-31] MEDS: IPRATROPIUM-ALBUTEROL 3 ML NEB INHALATION PRN (03:54)
[2021-08-31] MEDS: glipiZIDE 10 MG TAB PO SCH ×2 (07:25→17:57)
[2021-08-31] MEDS: AMIODARONE 200 MG TAB PO SCH (07:26)
[2021-08-31] MEDS: predniSONE 20 MG TAB PO SCH (07:32)
[2021-08-31 07:41] LABS: Glucose,Whole Blood 96 mg/dL (75-99)
[2021-08-31] MEDS: INSULIN ASPART (NovoLOG) 100 UNIT/ML VIAL SQ SCH ×4 (07:44→21:09)
[2021-08-31] MEDS: IPRATROPIUM-ALBUTEROL 3 ML NEB INHALATION SCH ×4 (08:08→19:51)
[2021-08-31 09:14] LABS: African American GFR (CKD) 33.2 (60.0-200.0); Anion Gap 11.7 mmol/L (4.00-12.00); BUN/Creat Ratio 31.94 Ratio (12.00-20.00); Blood Urea Nitrogen 51.1 mg/dL (9.0-27.0); Calcium 8.6 mg/dL (8.7-10.3); Carbon Dioxide 22.3 mmol/L (21.6-31.8); Non-African American GFR(CKD) 28.7 (60.0-200.0); Potassium 4.3 mmol/L (3.5-5.5)
[2021-08-31 09:42] LABS: Anisocytosis Slight; HCT 23.8 % (34.0-46.0); HGB 7.4 gm/dL (11.4-16.0); Hypochromasia Marked; MCH 26.8 pg (25.0-35.0); MCHC 31.1 g/dL (31.0-37.0); MCV 86.3 fL (80.0-100.0); Mean Platelet Volume 9.1; Platelet Count 235 k/uL (150-450); Poikilocytosis Slight; RBC 2.75 m/uL (3.80-5.40); RDW 18.5 % (11.5-15.5); WBC 5.5 k/uL (3.8-10.6)
[2021-08-31 12:34] LABS: Glucose,Whole Blood 188 mg/dL (75-99)
[2021-08-31 12:42] LABS: African American GFR (CKD) 36 (>60 ml/min/1.73 sqM); Anion Gap 9 mmol/L; Blood Urea Nitrogen 56 mg/dL (7-17); Calcium 9.2 mg/dL (8.4-10.2); Carbon Dioxide 22 mmol/L (22-30); Chloride 104 mmol/L (98-107); Glucose 164 mg/dL (74-99); Non-African American GFR(CKD) 32 (>60 ml/min/1.73 sqM); Sodium 135 mmol/L (137-145)
--- NOTE | 2021-08-31 13:44 | P.PN ---
Subjective Progress Note Date: 08/31/21 CHIEF COMPLAINT: Anemia HISTORY OF PRESENT ILLNESS: The patient is a 86 year old female recently discharged from the hospital less than 3 weeks ago for similar episode of anemia. At that time, she had both an upper and lower endoscopy performed which had shown mild antral gastritis, small hiatal hernia, mild esophagitis, severe diverticulosis and external hemorrhoids. At that time there is no evidence of active GI bleed. The anemia could've been related to esophagitis, diverticular bleed or hemorrhoids. Patient was restarted on her Eliquis at that time. Eliquis has now been placed on hold. Hgb 6.0 up to 7.4 after blood transfusion. Patient denies any blood in the stools or black stools. PHYSICAL EXAM: VITAL SIGNS: Reviewed. GENERAL: Well-developed in no acute distress. HEENT: No sclera icterus. Extraocular movements grossly intact. Moist buccal mucosa. Head is atraumatic, normocephalic. ABDOMEN: Soft. Nondistended. Nontender. NEUROLOGIC: Alert and oriented. Cranial nerves II through XII grossly intact. ASSESSMENT: 1. Anemia status post blood transfusion PLAN: -We'll continue to observe patient -Continue to monitor hemoglobin -Continue to hold Eliquis -Hematology workup in progress -Continue PPI Physician Supply Analyst note has been reviewed by physician. Signing provider agrees with the documented findings, assessment, and plan of care. Objective - Vital Signs Vital signs: Vital Signs Temp 97.9 F 08/31/21 07:20 Pulse 78 08/31/21 12:23 Resp 17 08/31/21 07:36 BP 104/62 08/31/21 07:20 Pulse Ox 99 08/31/21 07:20 Intake & Output 08/30/21 08/31/21 08/31/21 18:59 06:59 18:59 Intake Total 1360 118 Balance 1360 118 Weight 85.2 kg Intake: Oral 1050 118 Blood Product 310 Rc As-1 Unit 310 [id number] Other: # Voids 2 2 - Labs CBC & Chem 7: 08/31/21 05:12 08/31/21 11:48 Labs: Abnormal Lab Results - Last 24 Hours (Table) 08/30/21 08/30/21 08/30/21 Range/Units 11:55 17:23 17:24 RBC (3.80-5.40) m/uL Hgb (11.4-16.0) gm/dL Hct (34.0-46.0) % RDW (11.5-15.5) % Sodium (137-145) mmol/L BUN (9.0-27.0) mg/dL Creatinine (0.6-1.5) mg/dL Est GFR (CKD-EPI)AfAm (60.0-200.0) Est GFR (CKD-EPI)NonAf (60.0-200.0) BUN/Creatinine Ratio (12.00-20.00) Ratio Glucose (74-99) mg/dL POC Glucose (mg/dL) 508 H 508 H (75-99) mg/dL Calcium (8.7-10.3) mg/dL Crossmatch See Detail 08/30/21 08/30/21 08/30/21 Range/Units 17:48 19:15 20:17 RBC (3.80-5.40) m/uL Hgb (11.4-16.0) gm/dL Hct (34.0-46.0) % RDW (11.5-15.5) % Sodium (137-145) mmol/L BUN (9.0-27.0) mg/dL Creatinine (0.6-1.5) mg/dL Est GFR (CKD-EPI)AfAm (60.0-200.0) Est GFR (CKD-EPI)NonAf (60.0-200.0) BUN/Creatinine Ratio (12.00-20.00) Ratio Glucose 441 H (74-99) mg/dL POC Glucose (mg/dL) 498 H 431 H (75-99) mg/dL Calcium (8.7-10.3) mg/dL Crossmatch 08/31/21 08/31/21 08/31/21 Range/Units 00:55 05:12 05:12 RBC 2.75 L (3.80-5.40) m/uL Hgb 7.4 L (11.4-16.0) gm/dL Hct 23.8 L (34.0-46.0) % RDW 18.5 H (11.5-15.5) % Sodium (137-145) mmol/L BUN 51.1 H (9.0-27.0) mg/dL Creatinine 1.6 H (0.6-1.5) mg/dL Est GFR (CKD-EPI)AfAm 33.2 L (60.0-200.0) Est GFR (CKD-EPI)NonAf 28.7 L (60.0-200.0) BUN/Creatinine Ratio 31.94 H (12.00-20.00) Ratio Glucose 126 H (74-99) mg/dL POC Glucose (mg/dL) 178 H (75-99) mg/dL Calcium 8.6 L (8.7-10.3) mg/dL Crossmatch 08/31/21 08/31/21 Range/Units 11:48 12:32 RBC (3.80-5.40) m/uL Hgb (11.4-16.0) gm/dL Hct (34.0-46.0) % RDW (11.5-15.5) % Sodium 135 L (137-145) mmol/L BUN 56 H (9.0-27.0) mg/dL Creatinine 1.49 H (0.6-1.5) mg/dL Est GFR (CKD-EPI)AfAm (60.0-200.0) Est GFR (CKD-EPI)NonAf (60.0-200.0) BUN/Creatinine Ratio (12.00-20.00) Ratio Glucose 164 H (74-99) mg/dL POC Glucose (mg/dL) 188 H (75-99) mg/dL Calcium (8.7-10.3) mg/dL Crossmatch
[2021-08-31] MEDS: PANTOPRAZOLE 40 MG TABLET PO SCH (13:47)
[2021-08-31 17:23] LABS: Glucose,Whole Blood 438 mg/dL (75-99)
[2021-08-31 17:23] LABS: Glucose,Whole Blood 453 mg/dL (75-99)
--- NOTE | 2021-08-31 18:16 | P.CONS ---
History of Present Illness - Reason for Consult Consult date: 08/31/21 Anemia Requesting physician: Summer Gallardo - Chief Complaint Symptomatic Anemia - History of Present Illness Mrs. Cedillo is a 86 year old female who was admitted earlier in July for GI blood loss anemia. EGD and colonoscopy on 08/06/21 revealed gastritis, no active bleeding. She is prescribed anticoagualtion eliquis. Review of Systems All systems: negative Constitutional: Reports as per HPI 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 History of Any Multi-Drug Resistant Organisms: None Reported Past Surgical History: Hysterectomy Additional Past Surgical History / Comment(s): partial lung removal at [facility] Past Anesthesia/Blood Transfusion Reactions: No Reported Reaction Past Psychological History: No Psychological Hx Reported Smoking Status: Former smoker Past Alcohol Use History: None Reported Past Drug Use History: None Reported - Past Family History Mother Family Medical History: Cancer Father Family Medical History: Myocardial Infarction (PR) Medications and Allergies Home Medications Medication Instructions Recorded Confirmed Type glipiZIDE [Glipizide] 10 mg PO BID 04/15/17 08/29/21 History Losartan Potassium [Cozaar] 25 mg PO HS 05/01/21 08/29/21 History Lovastatin [Mevacor] 20 mg PO HS 05/01/21 08/29/21 History Memantine [Namenda] 20 mg PO HS 05/01/21 08/29/21 History metFORMIN HCL ER [Glucophage XR] 500 mg PO DAILY@1300 05/01/21 08/29/21 History Apixaban [Eliquis] 5 mg PO BID #60 tab 05/05/21 08/29/21 Rx Acetaminophen/Diphenhydramine 1 tab PO HS 08/03/21 08/29/21 History [Tylenol PM 500-25mg] Amiodarone [Cordarone] 200 mg PO DAILY 08/03/21 08/29/21 History Allergies Allergy/AdvReac Type Severity Reaction Status Date / Time Sulfa (Sulfonamide Allergy Rash/Hives Verified 08/29/21 18:50 Antibiotics) Physical Exam Vitals: Vital Signs Temp Pulse Pulse Resp BP BP BP 08/31/21 12:23 78 08/31/21 12:11 78 08/31/21 08:20 78 08/31/21 08:08 78 08/31/21 07:36 17 08/31/21 07:20 97.9 F 68 16 104/62 08/31/21 04:03 75 08/31/21 03:54 79 08/31/21 02:10 70 16 08/31/21 00:53 97.3 F L 76 18 124/57 08/30/21 21:03 70 16 08/30/21 19:59 72 08/30/21 19:49 72 08/30/21 19:43 98.1 F 70 16 120/63 08/30/21 17:58 98.1 F 74 18 120/63 08/30/21 17:11 97.9 F 78 18 118/66 08/30/21 16:29 78 08/30/21 16:18 78 08/30/21 16:09 98.4 F 77 18 117/67 08/30/21 15:34 98.3 F 83 18 115/58 08/30/21 15:24 98.3 F 89 18 98/51 08/30/21 15:04 98.3 F 87 18 121/71 08/30/21 15:00 98.2 F 87 16 106/61 08/30/21 14:54 97.5 F L 84 18 112/59 08/30/21 14:00 87 18 Pulse Ox 08/31/21 12:23 08/31/21 12:11 08/31/21 08:20 08/31/21 08:08 08/31/21 07:36 08/31/21 07:20 99 08/31/21 04:03 08/31/21 03:54 08/31/21 02:10 08/31/21 00:53 100 08/30/21 21:03 08/30/21 19:59 08/30/21 19:49 08/30/21 19:43 98 08/30/21 17:58 08/30/21 17:11 100 08/30/21 16:29 08/30/21 16:18 97 08/30/21 16:09 97 08/30/21 15:34 97 08/30/21 15:24 98 08/30/21 15:04 08/30/21 15:00 98 08/30/21 14:54 100 08/30/21 14:00 Intake and Output 08/30/21 08/31/21 08/31/21 22:59 06:59 14:59 Intake Total 310 118 Balance 310 118 Intake: Oral 118 Blood Product 310 Rc As-1 Unit 310 [id number] Other: # Voids 1 2 Weight 85.2 kg - Constitutional General appearance: cooperative, no acute distress - EENT Eyes: EOMI ENT: hard of hearing, NA/AT - Neck Neck: normal ROM - Respiratory Respiratory: bilateral: CTA - Cardiovascular Rhythm: regularly irregular - Gastrointestinal General gastrointestinal: normal bowel sounds, soft - Integumentary Integumentary: pale - Neurologic Neurologic: CNII-XII intact - Musculoskeletal Musculoskeletal: generalized weakness, strength equal bilaterally - Psychiatric Psychiatric: A&O x's 3, appropriate affect, intact judgment & insight Results CBC & Chem 7: 08/31/21 05:12 08/31/21 11:48 Labs: Abnormal Lab Results - Last 24 Hours (Table) 08/30/21 08/30/21 08/30/21 Range/Units 11:55 17:23 17:24 RBC (3.80-5.40) m/uL Hgb (11.4-16.0) gm/dL Hct (34.0-46.0) % RDW (11.5-15.5) % Sodium (137-145) mmol/L BUN (9.0-27.0) mg/dL Creatinine (0.6-1.5) mg/dL Est GFR (CKD-EPI)AfAm (60.0-200.0) Est GFR (CKD-EPI)NonAf (60.0-200.0) BUN/Creatinine Ratio (12.00-20.00) Ratio Glucose (74-99) mg/dL POC Glucose (mg/dL) 508 H 508 H (75-99) mg/dL Calcium (8.7-10.3) mg/dL Crossmatch See Detail 08/30/21 08/30/21 08/30/21 Range/Units 17:48 19:15 20:17 RBC (3.80-5.40) m/uL Hgb (11.4-16.0) gm/dL Hct (34.0-46.0) % RDW (11.5-15.5) % Sodium (137-145) mmol/L BUN (9.0-27.0) mg/dL Creatinine (0.6-1.5) mg/dL Est GFR (CKD-EPI)AfAm (60.0-200.0) Est GFR (CKD-EPI)NonAf (60.0-200.0) BUN/Creatinine Ratio (12.00-20.00) Ratio Glucose 441 H (74-99) mg/dL POC Glucose (mg/dL) 498 H 431 H (75-99) mg/dL Calcium (8.7-10.3) mg/dL Crossmatch 08/31/21 08/31/21 08/31/21 Range/Units 00:55 05:12 05:12 RBC 2.75 L (3.80-5.40) m/uL Hgb 7.4 L (11.4-16.0) gm/dL Hct 23.8 L (34.0-46.0) % RDW 18.5 H (11.5-15.5) % Sodium (137-145) mmol/L BUN 51.1 H (9.0-27.0) mg/dL Creatinine 1.6 H (0.6-1.5) mg/dL Est GFR (CKD-EPI)AfAm 33.2 L (60.0-200.0) Est GFR (CKD-EPI)NonAf 28.7 L (60.0-200.0) BUN/Creatinine Ratio 31.94 H (12.00-20.00) Ratio Glucose 126 H (74-99) mg/dL POC Glucose (mg/dL) 178 H (75-99) mg/dL Calcium 8.6 L (8.7-10.3) mg/dL Crossmatch 08/31/21 08/31/21 Range/Units 11:48 12:32 RBC (3.80-5.40) m/uL Hgb (11.4-16.0) gm/dL Hct (34.0-46.0) % RDW (11.5-15.5) % Sodium 135 L (137-145) mmol/L BUN 56 H (9.0-27.0) mg/dL Creatinine 1.49 H (0.6-1.5) mg/dL Est GFR (CKD-EPI)AfAm (60.0-200.0) Est GFR (CKD-EPI)NonAf (60.0-200.0) BUN/Creatinine Ratio (12.00-20.00) Ratio Glucose 164 H (74-99) mg/dL POC Glucose (mg/dL) 188 H (75-99) mg/dL Calcium (8.7-10.3) mg/dL Crossmatch Chest x-ray: report reviewed Assessment and Plan (1) Acute blood loss anemia Current Visit: Yes Status: Acute Code(s): D62 - ACUTE POSTHEMORRHAGIC ANEMIA SNOMED Code(s): 611345887 (2) JOSÉ LUIS (acute kidney injury) Current Visit: No Status: Acute Code(s): N17.9 - ACUTE KIDNEY FAILURE, UNSPECIFIED SNOMED Code(s): 56767861 (3) Anemia Current Visit: No Status: Acute Code(s): D64.9 - ANEMIA, UNSPECIFIED SNOMED Code(s): 214841314 Plan: Symptomatic Anemia likely related to GI blood loss: AVMs small bowel and Gastritis. - Additional work-up ordered - IV Iron Ordered based off prior Iron studies, repeted Iron studies however with transfusions given likely not accurate.
[2021-08-31] MEDS: SODIUM FERRIC GLUCONAT-SUCROSE 125 MG in SODIUM CHLORIDE 0.9% 100 ML IVPB SCH (19:30)
[2021-08-31 20:33] LABS: Glucose,Whole Blood 288 mg/dL (75-99)
[2021-08-31 20:33] LABS: Glucose,Whole Blood 287 mg/dL (75-99)
[2021-08-31] MEDS: ATORVASTATIN 10 MG TAB PO SCH (21:08)
[2021-08-31] MEDS: MEMANTINE 10 MG TAB PO SCH (21:09)
[2021-08-31 22:35] LABS: % Iron Saturation 4.68 (12.00-45.00); Ferritin 48.3 ng/mL (10.0-291.0); Iron 19 ug/dL (50-170); Total Iron Binding Capacity 402 ug/dL (228-460)
[2021-08-31 23:27] LABS: LDH 317 U/L (120-246); Rheumatoid Factor, Qnt <10 IU/mL (0-15)
[2021-09-01 01:43] LABS: Glucose,Whole Blood 59 mg/dL (75-99)
[2021-09-01 02:02] LABS: Glucose,Whole Blood 55 mg/dL (75-99)
[2021-09-01 02:21] LABS: Glucose,Whole Blood 62 mg/dL (75-99)
[2021-09-01 02:41] LABS: Glucose,Whole Blood 93 mg/dL (75-99)
[2021-09-01 07:40] LABS: Glucose,Whole Blood 61 mg/dL (75-99)
[2021-09-01] MEDS: AMIODARONE 200 MG TAB PO SCH (07:44)
[2021-09-01] MEDS: INSULIN ASPART (NovoLOG) 100 UNIT/ML VIAL SQ SCH ×4 (07:44→20:15)
[2021-09-01] MEDS: PANTOPRAZOLE 40 MG TABLET PO SCH (07:44)
[2021-09-01] MEDS: predniSONE 20 MG TAB PO SCH (07:44)
[2021-09-01] MEDS: IPRATROPIUM-ALBUTEROL 3 ML NEB INHALATION SCH ×4 (07:45→21:18)
[2021-09-01] MEDS: SODIUM FERRIC GLUCONAT-SUCROSE 125 MG in SODIUM CHLORIDE 0.9% 100 ML IVPB SCH (08:21)
[2021-09-01 10:15] LABS: African American GFR (CKD) 30.5 (60.0-200.0); Anion Gap 13.1 mmol/L (4.00-12.00); BUN/Creat Ratio 32.67 Ratio (12.00-20.00); Blood Urea Nitrogen 56.2 mg/dL (9.0-27.0); Calcium 8.7 mg/dL (8.7-10.3); Non-African American GFR(CKD) 26.3 (60.0-200.0); Potassium 4.7 mmol/L (3.5-5.5)
[2021-09-01] MEDS: glipiZIDE 10 MG TAB PO SCH ×2 (10:23→17:56)
[2021-09-01 10:26] LABS: Glucose,Whole Blood 146 mg/dL (75-99)
[2021-09-01 11:42] LABS: HCT 26.2 % (37.2-46.3); HGB 7.7 g/dL (12.0-15.0); MCH 26.5 pg (27.0-32.0); MCHC 29.4 g/dL (32.0-37.0); Mean Platelet Volume 11.4 fL (9.5-12.2); Platelet Count 264 X 10*3/uL (140-440); Polychromasia 2+; RBC 2.91 X 10*6/uL (4.10-5.20); RDW 19.3 % (11.5-14.5); WBC 9.71 X 10*3/uL (4.50-10.00)
[2021-09-01 12:04] LABS: Glucose,Whole Blood 231 mg/dL (75-99)
[2021-09-01 14:12] LABS: Free Kappa Lt Chain Qnt, Serum 4.61 mg/dL (0.33-1.94)
--- NOTE | 2021-09-01 14:22 | P.PN ---
Subjective Progress Note Date: 09/01/21 Principal diagnosis: anemia, iron deficiency In f/u today pt states she is feeling good, denies any bleeding, her breathing is comfortable Objective - Vital Signs Vital signs: Vital Signs Temp 97.8 F 09/01/21 07:00 Pulse 78 09/01/21 11:10 Resp 18 09/01/21 07:00 BP 127/77 09/01/21 07:00 Pulse Ox 100 09/01/21 07:48 Intake & Output 08/31/21 09/01/21 09/01/21 18:59 06:59 18:59 Intake Total 518 500 358 Balance 518 500 358 Weight 86.8 kg Intake: Oral 518 500 358 Other: # Voids 3 2 - Constitutional General appearance: Present: average body habitus, cooperative, no acute distress - EENT Eyes: Present: anicteric sclerae, EOMI ENT: Present: hearing grossly normal - Respiratory Details: resp even and unlabored at rest - Integumentary Integumentary: Present: pale - Neurologic Neurologic: Present: CNII-XII intact - Musculoskeletal Musculoskeletal: Present: generalized weakness, strength equal bilaterally - Psychiatric Psychiatric: Present: A&O x's 3, appropriate affect, intact judgment & insight - Labs CBC & Chem 7: 09/01/21 04:48 09/01/21 04:48 Labs: Abnormal Lab Results - Last 24 Hours (Table) 08/31/21 08/31/21 08/31/21 Range/Units 05:12 17:20 17:21 RBC (4.10-5.20) X 10*6/uL Hgb (12.0-15.0) g/dL Hct (37.2-46.3) % MCH (27.0-32.0) pg MCHC (32.0-37.0) g/dL RDW (11.5-14.5) % Absolute Nucleated RBC (0.00-0.00) X 10*3/uL NRBC/100 WBC Diff (0.0-0.0) /100 WBCS Retic Count (0.10-1.80) % Carbon Dioxide (21.6-31.8) mmol/L Anion Gap (4.00-12.00) mmol/L BUN (9.0-27.0) mg/dL Creatinine (0.6-1.5) mg/dL Est GFR (CKD-EPI)AfAm (60.0-200.0) Est GFR (CKD-EPI)NonAf (60.0-200.0) BUN/Creatinine Ratio (12.00-20.00) Ratio Glucose (70-110) mg/dL POC Glucose (mg/dL) 453 H 438 H (75-99) mg/dL Iron 19 L (50-170) ug/dL % Saturation 4.68 L (12.00-45.00) Lactate Dehydrogenase 317 H (120-246) U/L Total Protein (PEP) (6.2-8.2) g/dL TSH 0.275 L (0.350-5.500) uIU/mL Free [place] LC, Quant (0.33-1.94) mg/dL Free [place] LC, Quant (0.57-2.63) mg/dL 08/31/21 08/31/21 09/01/21 Range/Units 20:30 20:32 01:41 RBC (4.10-5.20) X 10*6/uL Hgb (12.0-15.0) g/dL Hct (37.2-46.3) % MCH (27.0-32.0) pg MCHC (32.0-37.0) g/dL RDW (11.5-14.5) % Absolute Nucleated RBC (0.00-0.00) X 10*3/uL NRBC/100 WBC Diff (0.0-0.0) /100 WBCS Retic Count (0.10-1.80) % Carbon Dioxide (21.6-31.8) mmol/L Anion Gap (4.00-12.00) mmol/L BUN (9.0-27.0) mg/dL Creatinine (0.6-1.5) mg/dL Est GFR (CKD-EPI)AfAm (60.0-200.0) Est GFR (CKD-EPI)NonAf (60.0-200.0) BUN/Creatinine Ratio (12.00-20.00) Ratio Glucose (70-110) mg/dL POC Glucose (mg/dL) 288 H 287 H 59 L (75-99) mg/dL Iron (50-170) ug/dL % Saturation (12.00-45.00) Lactate Dehydrogenase (120-246) U/L Total Protein (PEP) (6.2-8.2) g/dL TSH (0.350-5.500) uIU/mL Free [place] LC, Quant (0.33-1.94) mg/dL Free [place] LC, Quant (0.57-2.63) mg/dL 09/01/21 09/01/21 09/01/21 Range/Units 02:00 02:19 04:48 RBC 2.91 L (4.10-5.20) X 10*6/uL Hgb 7.7 L (12.0-15.0) g/dL Hct 26.2 L (37.2-46.3) % MCH 26.5 L (27.0-32.0) pg MCHC 29.4 L (32.0-37.0) g/dL RDW 19.3 H (11.5-14.5) % Absolute Nucleated RBC 0.04 H (0.00-0.00) X 10*3/uL NRBC/100 WBC Diff 0.4 H (0.0-0.0) /100 WBCS Retic Count 2.10 H (0.10-1.80) % Carbon Dioxide (21.6-31.8) mmol/L Anion Gap (4.00-12.00) mmol/L BUN (9.0-27.0) mg/dL Creatinine (0.6-1.5) mg/dL Est GFR (CKD-EPI)AfAm (60.0-200.0) Est GFR (CKD-EPI)NonAf (60.0-200.0) BUN/Creatinine Ratio (12.00-20.00) Ratio Glucose (70-110) mg/dL POC Glucose (mg/dL) 55 L 62 L (75-99) mg/dL Iron (50-170) ug/dL % Saturation (12.00-45.00) Lactate Dehydrogenase (120-246) U/L Total Protein (PEP) (6.2-8.2) g/dL TSH (0.350-5.500) uIU/mL Free [place] LC, Quant (0.33-1.94) mg/dL Free [place] LC, Quant (0.57-2.63) mg/dL 11/12/2109/01/21 09/01/21 Range/Units 04:48 04:48 07:38 RBC (4.10-5.20) X 10*6/uL Hgb (12.0-15.0) g/dL Hct (37.2-46.3) % MCH (27.0-32.0) pg MCHC (32.0-37.0) g/dL RDW (11.5-14.5) % Absolute Nucleated RBC (0.00-0.00) X 10*3/uL NRBC/100 WBC Diff (0.0-0.0) /100 WBCS Retic Count (0.10-1.80) % Carbon Dioxide 21.0 L (21.6-31.8) mmol/L Anion Gap 13.10 H (4.00-12.00) mmol/L BUN 56.2 H (9.0-27.0) mg/dL Creatinine 1.7 H (0.6-1.5) mg/dL Est GFR (CKD-EPI)AfAm 30.5 L (60.0-200.0) Est GFR (CKD-EPI)NonAf 26.3 L (60.0-200.0) BUN/Creatinine Ratio 32.67 H (12.00-20.00) Ratio Glucose 134 H (70-110) mg/dL POC Glucose (mg/dL) 61 L (75-99) mg/dL Iron (50-170) ug/dL % Saturation (12.00-45.00) Lactate Dehydrogenase (120-246) U/L Total Protein (PEP) 6.0 L (6.2-8.2) g/dL TSH (0.350-5.500) uIU/mL Free [place] LC, Quant 4.61 H (0.33-1.94) mg/dL Free [place] LC, Quant 3.13 H (0.57-2.63) mg/dL 09/01/21 09/01/21 Range/Units 10:21 12:03 RBC (4.10-5.20) X 10*6/uL Hgb (12.0-15.0) g/dL Hct (37.2-46.3) % MCH (27.0-32.0) pg MCHC (32.0-37.0) g/dL RDW (11.5-14.5) % Absolute Nucleated RBC (0.00-0.00) X 10*3/uL NRBC/100 WBC Diff (0.0-0.0) /100 WBCS Retic Count (0.10-1.80) % Carbon Dioxide (21.6-31.8) mmol/L Anion Gap (4.00-12.00) mmol/L BUN (9.0-27.0) mg/dL Creatinine (0.6-1.5) mg/dL Est GFR (CKD-EPI)AfAm (60.0-200.0) Est GFR (CKD-EPI)NonAf (60.0-200.0) BUN/Creatinine Ratio (12.00-20.00) Ratio Glucose (70-110) mg/dL POC Glucose (mg/dL) 146 H 231 H (75-99) mg/dL Iron (50-170) ug/dL % Saturation (12.00-45.00) Lactate Dehydrogenase (120-246) U/L Total Protein (PEP) (6.2-8.2) g/dL TSH (0.350-5.500) uIU/mL Free [place] LC, Quant (0.33-1.94) mg/dL Free [place] LC, Quant (0.57-2.63) mg/dL Assessment and Plan (1) Iron deficiency anemia Current Visit: Yes Status: Acute Priority: High Code(s): D50.9 - IRON DEFICIENCY ANEMIA, UNSPECIFIED SNOMED Code(s): 85709243 (2) Acute blood loss anemia Current Visit: Yes Status: Acute Priority: High Code(s): D62 - ACUTE POSTHEMORRHAGIC ANEMIA SNOMED Code(s): 987774481 Plan: 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 Plan is to keep Hgb and iron studies monitored. She has a course of IV iron ordered. Replace iron as needed. F/U 1-2 weeks out pt for labs. Pt is asking about home care, consulted [employer]
--- NOTE | 2021-09-01 15:09 | P.PN ---
Subjective Progress Note Date: 09/01/21 CHIEF COMPLAINT: Anemia HISTORY OF PRESENT ILLNESS: The patient is a 86 year old female recently discharged from the hospital less than 3 weeks ago for similar episode of anemia. At that time, she had both an upper and lower endoscopy performed which had shown mild antral gastritis, small hiatal hernia, mild esophagitis, severe diverticulosis and external hemorrhoids. At that time there is no evidence of active GI bleed. The anemia could've been related to esophagitis, diverticular bleed or hemorrhoids. Patient was restarted on her Eliquis at that time. Eliquis has now been placed on hold. Patient denies any blood in the stools or black stools. She denies any abdominal pain. Afebrile. Hemoglobin has trended up from 7.4-7.7 PHYSICAL EXAM: VITAL SIGNS: Reviewed. GENERAL: Well-developed in no acute distress. HEENT: No sclera icterus. Extraocular movements grossly intact. Moist buccal mucosa. Head is atraumatic, normocephalic. ABDOMEN: Soft. Nondistended. Nontender. NEUROLOGIC: Alert and oriented. Cranial nerves II through XII grossly intact. ASSESSMENT: 1. Anemia status post blood transfusion 2. Iron deficiency anemia PLAN: -No surgical intervention planned -Continue to monitor hemoglobin -Continue to hold Eliquis -Hematology following -Continue PPI -Anticipating possible discharge tomorrow Physician Hide Shaker note has been reviewed by physician. Signing provider agrees with the documented findings, assessment, and plan of care. Objective - Vital Signs Vital signs: Vital Signs Temp 97.8 F 09/01/21 07:00 Pulse 78 09/01/21 11:10 Resp 18 09/01/21 07:00 BP 127/77 09/01/21 07:00 Pulse Ox 100 09/01/21 07:48 Intake & Output 08/31/21 09/01/21 09/01/21 18:59 06:59 18:59 Intake Total 518 500 358 Balance 518 500 358 Weight 86.8 kg Intake: Oral 518 500 358 Other: # Voids 3 2 - Labs CBC & Chem 7: 09/01/21 04:48 09/01/21 04:48 Labs: Abnormal Lab Results - Last 24 Hours (Table) 08/31/21 08/31/21 08/31/21 Range/Units 05:12 17:20 17:21 RBC (4.10-5.20) X 10*6/uL Hgb (12.0-15.0) g/dL Hct (37.2-46.3) % MCH (27.0-32.0) pg MCHC (32.0-37.0) g/dL RDW (11.5-14.5) % Absolute Nucleated RBC (0.00-0.00) X 10*3/uL NRBC/100 WBC Diff (0.0-0.0) /100 WBCS Retic Count (0.10-1.80) % Carbon Dioxide (21.6-31.8) mmol/L Anion Gap (4.00-12.00) mmol/L BUN (9.0-27.0) mg/dL Creatinine (0.6-1.5) mg/dL Est GFR (CKD-EPI)AfAm (60.0-200.0) Est GFR (CKD-EPI)NonAf (60.0-200.0) BUN/Creatinine Ratio (12.00-20.00) Ratio Glucose (70-110) mg/dL POC Glucose (mg/dL) 453 H 438 H (75-99) mg/dL Iron 19 L (50-170) ug/dL % Saturation 4.68 L (12.00-45.00) Lactate Dehydrogenase 317 H (120-246) U/L Total Protein (PEP) (6.2-8.2) g/dL TSH 0.275 L (0.350-5.500) uIU/mL Free [place] LC, Quant (0.33-1.94) mg/dL Free [place] LC, Quant (0.57-2.63) mg/dL 08/31/21 08/31/21 09/01/21 Range/Units 20:30 20:32 01:41 RBC (4.10-5.20) X 10*6/uL Hgb (12.0-15.0) g/dL Hct (37.2-46.3) % MCH (27.0-32.0) pg MCHC (32.0-37.0) g/dL RDW (11.5-14.5) % Absolute Nucleated RBC (0.00-0.00) X 10*3/uL NRBC/100 WBC Diff (0.0-0.0) /100 WBCS Retic Count (0.10-1.80) % Carbon Dioxide (21.6-31.8) mmol/L Anion Gap (4.00-12.00) mmol/L BUN (9.0-27.0) mg/dL Creatinine (0.6-1.5) mg/dL Est GFR (CKD-EPI)AfAm (60.0-200.0) Est GFR (CKD-EPI)NonAf (60.0-200.0) BUN/Creatinine Ratio (12.00-20.00) Ratio Glucose (70-110) mg/dL POC Glucose (mg/dL) 288 H 287 H 59 L (75-99) mg/dL Iron (50-170) ug/dL % Saturation (12.00-45.00) Lactate Dehydrogenase (120-246) U/L Total Protein (PEP) (6.2-8.2) g/dL TSH (0.350-5.500) uIU/mL Free [place] LC, Quant (0.33-1.94) mg/dL Free [place] LC, Quant (0.57-2.63) mg/dL 09/01/21 09/01/21 09/01/21 Range/Units 02:00 02:19 04:48 RBC 2.91 L (4.10-5.20) X 10*6/uL Hgb 7.7 L (12.0-15.0) g/dL Hct 26.2 L (37.2-46.3) % MCH 26.5 L (27.0-32.0) pg MCHC 29.4 L (32.0-37.0) g/dL RDW 19.3 H (11.5-14.5) % Absolute Nucleated RBC 0.04 H (0.00-0.00) X 10*3/uL NRBC/100 WBC Diff 0.4 H (0.0-0.0) /100 WBCS Retic Count 2.10 H (0.10-1.80) % Carbon Dioxide (21.6-31.8) mmol/L Anion Gap (4.00-12.00) mmol/L BUN (9.0-27.0) mg/dL Creatinine (0.6-1.5) mg/dL Est GFR (CKD-EPI)AfAm (60.0-200.0) Est GFR (CKD-EPI)NonAf (60.0-200.0) BUN/Creatinine Ratio (12.00-20.00) Ratio Glucose (70-110) mg/dL POC Glucose (mg/dL) 55 L 62 L (75-99) mg/dL Iron (50-170) ug/dL % Saturation (12.00-45.00) Lactate Dehydrogenase (120-246) U/L Total Protein (PEP) (6.2-8.2) g/dL TSH (0.350-5.500) uIU/mL Free [place] LC, Quant (0.33-1.94) mg/dL Free [place] LC, Quant (0.57-2.63) mg/dL 09/01/21 09/01/21 09/01/21 Range/Units 04:48 04:48 07:38 RBC (4.10-5.20) X 10*6/uL Hgb (12.0-15.0) g/dL Hct (37.2-46.3) % MCH (27.0-32.0) pg MCHC (32.0-37.0) g/dL RDW (11.5-14.5) % Absolute Nucleated RBC (0.00-0.00) X 10*3/uL NRBC/100 WBC Diff (0.0-0.0) /100 WBCS Retic Count (0.10-1.80) % Carbon Dioxide 21.0 L (21.6-31.8) mmol/L Anion Gap 13.10 H (4.00-12.00) mmol/L BUN 56.2 H (9.0-27.0) mg/dL Creatinine 1.7 H (0.6-1.5) mg/dL Est GFR (CKD-EPI)AfAm 30.5 L (60.0-200.0) Est GFR (CKD-EPI)NonAf 26.3 L (60.0-200.0) BUN/Creatinine Ratio 32.67 H (12.00-20.00) Ratio Glucose 134 H (70-110) mg/dL POC Glucose (mg/dL) 61 L (75-99) mg/dL Iron (50-170) ug/dL % Saturation (12.00-45.00) Lactate Dehydrogenase (120-246) U/L Total Protein (PEP) 6.0 L (6.2-8.2) g/dL TSH (0.350-5.500) uIU/mL Free [place] LC, Quant 4.61 H (0.33-1.94) mg/dL Free [place] LC, Quant 3.13 H (0.57-2.63) mg/dL 09/01/21 09/01/21 Range/Units 10:21 12:03 RBC (4.10-5.20) X 10*6/uL Hgb (12.0-15.0) g/dL Hct (37.2-46.3) % MCH (27.0-32.0) pg MCHC (32.0-37.0) g/dL RDW (11.5-14.5) % Absolute Nucleated RBC (0.00-0.00) X 10*3/uL NRBC/100 WBC Diff (0.0-0.0) /100 WBCS Retic Count (0.10-1.80) % Carbon Dioxide (21.6-31.8) mmol/L Anion Gap (4.00-12.00) mmol/L BUN (9.0-27.0) mg/dL Creatinine (0.6-1.5) mg/dL Est GFR (CKD-EPI)AfAm (60.0-200.0) Est GFR (CKD-EPI)NonAf (60.0-200.0) BUN/Creatinine Ratio (12.00-20.00) Ratio Glucose (70-110) mg/dL POC Glucose (mg/dL) 146 H 231 H (75-99) mg/dL Iron (50-170) ug/dL % Saturation (12.00-45.00) Lactate Dehydrogenase (120-246) U/L Total Protein (PEP) (6.2-8.2) g/dL TSH (0.350-5.500) uIU/mL Free [place] LC, Quant (0.33-1.94) mg/dL Free [place] LC, Quant (0.57-2.63) mg/dL
[2021-09-01 16:21] LABS: Erythrocyte Sedimentation Rate 40 mm/Hr (0-30)
[2021-09-01 17:04] LABS: Glucose,Whole Blood 385 mg/dL (75-99)
--- NOTE | 2021-09-01 17:39 | P.PN ---
Subjective Progress Note Date: 09/01/21 This 86-year-old admitted with anemia, recently hospitalized possibly 3 weeks ago with similar presentation. During that hospitalization patient proceeded with EGD and colonoscopy reporting mild antral gastritis, small hiatal hernia, mild esophagitis, severe diverticulosis and external hemorrhoids, with no evidence of active GI bleed. Patient's Eliquis was resumed at that time. Maintained on PPI. Evaluated by hematology, recommendations noted and appreciated, including IV iron ordered. Labs pending. Denies abdominal pain. Denies dark or bloody stools. Ambulating with in room, tolerating exertion well. Denies chest pain, palpitations or shortness of breath. Objective - Vital Signs Vital signs: Vital Signs Temp 97.5 F L 09/01/21 15:00 Pulse 73 09/01/21 15:00 Resp 19 09/01/21 15:00 BP 130/66 09/01/21 15:00 Pulse Ox 95 09/01/21 15:00 Intake & Output 08/31/21 09/01/21 09/01/21 18:59 06:59 18:59 Intake Total 518 500 358 Balance 518 500 358 Weight 86.8 kg Intake: Oral 518 500 358 Other: # Voids 3 2 6 # Bowel Movements 1 - Exam PHYSICAL EXAMINATION: GENERAL:Patient is alert and oriented x3,NAD HEENT: Pupils are round and equally reacting to light. EOMI. No scleral icterus. No conjunctival pallor. Normocephalic, atraumatic. Oral mucosa moist. CARDIOVASCULAR: S1 and S2 present. No murmurs, rubs, or gallops. PULMONARY: Lungs essentially clear with bilateral bases diminished ABDOMEN: Soft, nontender, nondistended, normoactive bowel sounds. No palpable organomegaly. EXTREMITIES: No cyanosis, clubbing, or pedal edema. NEUROLOGICAL: Gross neurological examination did not reveal any focal deficits. SKIN: Warm and dry, No rashes. - Labs CBC & Chem 7: 09/01/21 04:48 09/01/21 04:48 Labs: Abnormal Lab Results - Last 24 Hours (Table) 08/31/21 08/31/21 08/31/21 Range/Units 05:12 20:30 20:32 RBC (4.10-5.20) X 10*6/uL Hgb (12.0-15.0) g/dL Hct (37.2-46.3) % MCH (27.0-32.0) pg MCHC (32.0-37.0) g/dL RDW (11.5-14.5) % Absolute Nucleated RBC (0.00-0.00) X 10*3/uL NRBC/100 WBC Diff (0.0-0.0) /100 WBCS ESR (0-30) mm/Hr Retic Count (0.10-1.80) % Carbon Dioxide (21.6-31.8) mmol/L Anion Gap (4.00-12.00) mmol/L BUN (9.0-27.0) mg/dL Creatinine (0.6-1.5) mg/dL Est GFR (CKD-EPI)AfAm (60.0-200.0) Est GFR (CKD-EPI)NonAf (60.0-200.0) BUN/Creatinine Ratio (12.00-20.00) Ratio Glucose (70-110) mg/dL POC Glucose (mg/dL) 288 H 287 H (75-99) mg/dL Iron 19 L (50-170) ug/dL % Saturation 4.68 L (12.00-45.00) Lactate Dehydrogenase 317 H (120-246) U/L Total Protein (PEP) (6.2-8.2) g/dL TSH 0.275 L (0.350-5.500) uIU/mL Free [place] LC, Quant (0.33-1.94) mg/dL Free [place] LC, Quant (0.57-2.63) mg/dL 09/01/21 09/01/21 09/01/21 Range/Units 01:41 02:00 02:19 RBC (4.10-5.20) X 10*6/uL Hgb (12.0-15.0) g/dL Hct (37.2-46.3) % MCH (27.0-32.0) pg MCHC (32.0-37.0) g/dL RDW (11.5-14.5) % Absolute Nucleated RBC (0.00-0.00) X 10*3/uL NRBC/100 WBC Diff (0.0-0.0) /100 WBCS ESR (0-30) mm/Hr Retic Count (0.10-1.80) % Carbon Dioxide (21.6-31.8) mmol/L Anion Gap (4.00-12.00) mmol/L BUN (9.0-27.0) mg/dL Creatinine (0.6-1.5) mg/dL Est GFR (CKD-EPI)AfAm (60.0-200.0) Est GFR (CKD-EPI)NonAf (60.0-200.0) BUN/Creatinine Ratio (12.00-20.00) Ratio Glucose (70-110) mg/dL POC Glucose (mg/dL) 59 L 55 L 62 L (75-99) mg/dL Iron (50-170) ug/dL % Saturation (12.00-45.00) Lactate Dehydrogenase (120-246) U/L Total Protein (PEP) (6.2-8.2) g/dL TSH (0.350-5.500) uIU/mL Free [place] LC, Quant (0.33-1.94) mg/dL Free [place] LC, Quant (0.57-2.63) mg/dL 09/01/21 09/01/21 09/01/21 Range/Units 04:48 04:48 04:48 RBC 2.91 L (4.10-5.20) X 10*6/uL Hgb 7.7 L (12.0-15.0) g/dL Hct 26.2 L (37.2-46.3) % MCH 26.5 L (27.0-32.0) pg MCHC 29.4 L (32.0-37.0) g/dL RDW 19.3 H (11.5-14.5) % Absolute Nucleated RBC 0.04 H (0.00-0.00) X 10*3/uL NRBC/100 WBC Diff 0.4 H (0.0-0.0) /100 WBCS ESR 40 H (0-30) mm/Hr Retic Count 2.10 H (0.10-1.80) % Carbon Dioxide 21.0 L (21.6-31.8) mmol/L Anion Gap 13.10 H (4.00-12.00) mmol/L BUN 56.2 H (9.0-27.0) mg/dL Creatinine 1.7 H (0.6-1.5) mg/dL Est GFR (CKD-EPI)AfAm 30.5 L (60.0-200.0) Est GFR (CKD-EPI)NonAf 26.3 L (60.0-200.0) BUN/Creatinine Ratio 32.67 H (12.00-20.00) Ratio Glucose 134 H (70-110) mg/dL POC Glucose (mg/dL) (75-99) mg/dL Iron (50-170) ug/dL % Saturation (12.00-45.00) Lactate Dehydrogenase (120-246) U/L Total Protein (PEP) 6.0 L (6.2-8.2) g/dL TSH (0.350-5.500) uIU/mL Free [place] LC, Quant 4.61 H (0.33-1.94) mg/dL Free [place] LC, Quant 3.13 H (0.57-2.63) mg/dL 09/01/21 09/01/21 09/01/21 Range/Units 07:38 10:21 12:03 RBC (4.10-5.20) X 10*6/uL Hgb (12.0-15.0) g/dL Hct (37.2-46.3) % MCH (27.0-32.0) pg MCHC (32.0-37.0) g/dL RDW (11.5-14.5) % Absolute Nucleated RBC (0.00-0.00) X 10*3/uL NRBC/100 WBC Diff (0.0-0.0) /100 WBCS ESR (0-30) mm/Hr Retic Count (0.10-1.80) % Carbon Dioxide (21.6-31.8) mmol/L Anion Gap (4.00-12.00) mmol/L BUN (9.0-27.0) mg/dL Creatinine (0.6-1.5) mg/dL Est GFR (CKD-EPI)AfAm (60.0-200.0) Est GFR (CKD-EPI)NonAf (60.0-200.0) BUN/Creatinine Ratio (12.00-20.00) Ratio Glucose (70-110) mg/dL POC Glucose (mg/dL) 61 L 146 H 231 H (75-99) mg/dL Iron (50-170) ug/dL % Saturation (12.00-45.00) Lactate Dehydrogenase (120-246) U/L Total Protein (PEP) (6.2-8.2) g/dL TSH (0.350-5.500) uIU/mL Free [place] LC, Quant (0.33-1.94) mg/dL Free [place] LC, Quant (0.57-2.63) mg/dL 09/01/21 Range/Units 17:02 RBC (4.10-5.20) X 10*6/uL Hgb (12.0-15.0) g/dL Hct (37.2-46.3) % MCH (27.0-32.0) pg MCHC (32.0-37.0) g/dL RDW (11.5-14.5) % Absolute Nucleated RBC (0.00-0.00) X 10*3/uL NRBC/100 WBC Diff (0.0-0.0) /100 WBCS ESR (0-30) mm/Hr Retic Count (0.10-1.80) % Carbon Dioxide (21.6-31.8) mmol/L Anion Gap (4.00-12.00) mmol/L BUN (9.0-27.0) mg/dL Creatinine (0.6-1.5) mg/dL Est GFR (CKD-EPI)AfAm (60.0-200.0) Est GFR (CKD-EPI)NonAf (60.0-200.0) BUN/Creatinine Ratio (12.00-20.00) Ratio Glucose (70-110) mg/dL POC Glucose (mg/dL) 385 H (75-99) mg/dL Iron (50-170) ug/dL % Saturation (12.00-45.00) Lactate Dehydrogenase (120-246) U/L Total Protein (PEP) (6.2-8.2) g/dL TSH (0.350-5.500) uIU/mL Free Mather LC, Quant (0.33-1.94) mg/dL Free Lambda LC, Quant (0.57-2.63) mg/dL Assessment and Plan Assessment: Shortness of breath secondary to anemia, status post transfusion of 1 unit of packed RBCs, iron deficient Acute renal failure, prerenal azotemia secondary to diuretic therapy Hyperkalemia, resolved Chronic CHF, diastolic dysfunction, no acute exacerbation Diabetes mellitus Hyperlipidemia Chronic proximal atrial fibrillation Plan: Continue on current medication regime ,monitoring and symptomatic treatment. Labs pending. Patient did not receive at bedtime snack last night, developed hypoglycemic event. Communicated with staff via computer-Ensure bedt meryl snack. Close monitoring of Accu-Cheks. Maintain PPI. IV iron in progress. Patient currently 100% on 2 L nasal cannula which can be weaned off. Increase ambulation as tolerated. Close monitoring of electrolytes and renal function with repeat labs ordered for a.m. discharge planning in progress for tomorrow. The impression and plan of care has been dictated as directed. : I performed a history and examination of this patient, discussed the same with the dictator. I agree with the dictator's note ,documented as a scribe. Any additional findings or plans will be noted.
[2021-09-01 19:26] VITALS: RESP 18
[2021-09-01 19:55] LABS: Glucose,Whole Blood 272 mg/dL (75-99)
[2021-09-01] MEDS: ATORVASTATIN 10 MG TAB PO SCH (20:14)
[2021-09-01] MEDS: MEMANTINE 10 MG TAB PO SCH (20:14)
[2021-09-02 07:52] LABS: Glucose,Whole Blood 90 mg/dL (75-99)
[2021-09-02] MEDS: IPRATROPIUM-ALBUTEROL 3 ML NEB INHALATION SCH ×2 (07:57→11:40)
[2021-09-02] MEDS: INSULIN ASPART (NovoLOG) 100 UNIT/ML VIAL SQ SCH ×2 (08:08→14:04)
[2021-09-02 08:27] VITALS: BP 148/69; PULSE 67; TEMP 97.6
[2021-09-02 08:29] LABS: African American GFR (CKD) 41 (>60 ml/min/1.73 sqM); Anion Gap 7 mmol/L; Blood Urea Nitrogen 46 mg/dL (7-17); Calcium 9.3 mg/dL (8.4-10.2); Carbon Dioxide 26 mmol/L (22-30); Chloride 108 mmol/L (98-107); Glucose 90 mg/dL (74-99); Non-African American GFR(CKD) 36 (>60 ml/min/1.73 sqM); Potassium 4.6 mmol/L (3.5-5.1); Sodium 141 mmol/L (137-145)
[2021-09-02 08:37] LABS: Anisocytosis Slight; HCT 28.9 % (34.0-46.0); Hypochromasia Marked; MCH 27.2 pg (25.0-35.0); MCHC 30.8 g/dL (31.0-37.0); MCV 88.2 fL (80.0-100.0); Mean Platelet Volume 8.4; Platelet Count 286 k/uL (150-450); Poikilocytosis Slight; RBC 3.28 m/uL (3.80-5.40); WBC 7.2 k/uL (3.8-10.6)
[2021-09-02 08:41] LABS: HGB 8.9 gm/dL (11.4-16.0)
[2021-09-02] MEDS: AMIODARONE 200 MG TAB PO SCH (08:41)
[2021-09-02] MEDS: glipiZIDE 10 MG TAB PO SCH (08:41)
[2021-09-02] MEDS: PANTOPRAZOLE 40 MG TABLET PO SCH (08:41)
[2021-09-02] MEDS: SODIUM FERRIC GLUCONAT-SUCROSE 125 MG in SODIUM CHLORIDE 0.9% 100 ML IVPB SCH (08:42)
[2021-09-02] MEDS: predniSONE 20 MG TAB PO SCH (08:42)
[2021-09-02 10:29] LABS: ALT 20 U/L (4-34); AST 29 U/L (14-36); African American GFR (CKD) 37 (>60 ml/min/1.73 sqM); Albumin 3.9 g/dL (3.5-5.0); Albumin/Globulin Ratio 1.6; Alkaline Phosphatase 67 U/L (38-126); Anion Gap 9 mmol/L; Blood Urea Nitrogen 44 mg/dL (7-17); Calcium 9.2 mg/dL (8.4-10.2); Carbon Dioxide 22 mmol/L (22-30); Chloride 107 mmol/L (98-107); Globulin 2.5 g/dL; Glucose 208 mg/dL (74-99); Non-African American GFR(CKD) 32 (>60 ml/min/1.73 sqM); Potassium 5.1 mmol/L (3.5-5.1); Sodium 138 mmol/L (137-145); Total Bilirubin 0.5 mg/dL (0.2-1.3); Total Protein 6.4 g/dL (6.3-8.2)
[2021-09-02 10:41] LABS: Anisocytosis Slight; Basophils # (A) 0.1 k/uL (0-0.2); Basophils % (A) 1 %; Eosinophils # (A) 0.1 k/uL (0-0.7); Eosinophils % (A) 2 %; HCT 28.9 % (34.0-46.0); HGB 8.9 gm/dL (11.4-16.0); Hypochromasia Marked; Lymphocytes # (A) 1.8 k/uL (1.0-4.8); Lymphocytes % (A) 21 %; MCH 26.8 pg (25.0-35.0); MCHC 30.8 g/dL (31.0-37.0); MCV 86.8 fL (80.0-100.0); Mean Platelet Volume 7.9; Monocytes # (A) 0.6 k/uL (0-1.0); Monocytes % (A) 7 %; Neutrophils # (A) 5.8 k/uL (1.3-7.7); Neutrophils % (A) 68 %; Platelet Count 316 k/uL (150-450); Poikilocytosis Moderate; RBC 3.33 m/uL (3.80-5.40); RDW 19.4 % (11.5-15.5); WBC 8.5 k/uL (3.8-10.6)
[2021-09-02 12:33] LABS: Glucose,Whole Blood 346 mg/dL (75-99)
--- NOTE | 2021-09-02 12:49 | P.CRDCN ---
History of Present Illness History of present illness: This is a 86-year-old female with a past medical history significant for paroxysmal atrial fibrillation on anticoagulation with Eliquis, aortic stenosis, congestive heart failure, hypertension, and hyperlipidemia, type 2 diabetes, peripheral vascular disease. Patient follows in the office with Dr. Grande. We have been asked to see the patient in consultation for "alternatives/recs for Eliquis". Patient presents emergency department on 08/29/21 with complaints of shortness of breath, cough, congestion. Patient found to have hemoglobin dropped from 7.4 to 6.0 and underwent transfusion 1 unit of PRBCs. Patient was recently hospitalized possibly 3 weeks ago with similar presentation . During that hospitalization patient proceeded with EGD and colonoscopy reporting mild antral gastritis, small hiatal hernia, mild esophagitis, severe diverticulosis and external hemorrhoids, with no evidence of active GI bleed. Her Eliquis was restarted. This admission, Hematology has been consulted, diagnosing patient with iron deficiency anemia and ordered IV Iron. Surgery was consulted stated that her anemia last admission could be related to esophagitis, diverticular bleed or hemorrhoids. Patient denies any blood in the stools or black stools. She denies any abdominal pain. She denies any chest pain, orthopnea, PND, palpitations, lighteadedness, or dizziness. DIAGNOSTICS EKG reveals sinus rhythm, heart rate 84, no significant ST-T wave abnormalities Chest xray no active cardiopulmonary disease. Echocardiogram 08/05/2021 revealed an EF of 5560 percent, LA severely dilated, mild aortic stenosis with a peak/mean gradient of 34 mmHg/18 mmHg, mild mitral regurgitation, mild to moderate tricuspid regurgitation, severe pulmonary hypertension Laboratory reviewed, WBC 0.5, hemoglobin 8.9, platelets 316, sodium 138, potassium 5.1, BUN 44, serum creatinine 1.45. Current home medications include Eliquis 5 mg twice a day, amiodarone 200 mg daily, Protonix, lovastatin, glipizide, namenda REVIEW OF SYSTEMS At the time of my exam: CONSTITUTIONAL: Denies fever or chills. CARDIOVASCULAR: +shortness of breath, Denies chest pain, orthopnea, PND or palpitations. RESPIRATORY: + cough. GASTROINTESTINAL: Denies abdominal pain, diarrhea, constipation, nausea or vomiting. MUSCULOSKELETAL: Denies myalgias. NEUROLOGIC: Denies numbness, tingling, headacbe or weakness. ENDOCRINE: Denies fatigue, weight change, polydipsia or polyurina. GENITOURINARY: Denies burning, hematuria or urgency with micturation. HEMATOLOGIC: History of anemia PHYSICAL EXAMINATION Blood pressure 148/69, heart 67, afebrile maintaining saturations on room air CONSTITUTIONAL: No apparent distress. HEENT: Head is normocephalic. Pupils are equal, round. Sclerae anicteric. Mucous membranes of the mouth are moist. No JVD. No carotid bruit. CHEST EXAMINATION: Lungs are clear to auscultation. No chest wall tenderness is noted on palpation or with deep breathing. HEART EXAMINATION: Regular rate and rhythm. S1, S2 heard. No murmurs, gallops or rub. ABDOMEN: Soft, nontender. Positive bowel sounds. EXTREMITIES: 2+ peripheral pulses, no lower extremity edema and no calf tenderness. NEUROLOGIC EXAMINATION: Patient is awake, alert and oriented x3. ASSESSMENT Anemia status post 1 unit PRBCs Paroxysmal atrial fibrillation on anticoagulation with Eliquis. [id number] 5 Mild aortic stenosis Hypertension Hyperlipidemia Type 2 diabetes Peripheral vascular disease. Former tobacco use Chronic kidney disease PLAN From a cardiology perspective, we will hold Eliquis at this time due to recurrence of anemia. Patient to follow up with Dr. Grande on 09/09/21 for further evaluation and discussion for anticoagulation. Nurse Practitioner note has been reviewed, I agree with a documented findings and plan of care. Patient was seen and examined. 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 History of Any Multi-Drug Resistant Organisms: None Reported Past Surgical History: Hysterectomy Additional Past Surgical History / Comment(s): partial lung removal at [facility] Past Anesthesia/Blood Transfusion Reactions: No Reported Reaction Past Psychological History: No Psychological Hx Reported Smoking Status: Former smoker Past Alcohol Use History: None Reported Past Drug Use History: None Reported - Past Family History Mother Family Medical History: Cancer Father Family Medical History: Myocardial Infarction (ID) Medications and Allergies Home Medications Medication Instructions Recorded Confirmed Type glipiZIDE [Glipizide] 10 mg PO BID 04/15/17 08/29/21 History Lovastatin [Mevacor] 20 mg PO HS 05/01/21 08/29/21 History Memantine [Namenda] 20 mg PO HS 05/01/21 08/29/21 History Acetaminophen/Diphenhydramine 1 tab PO HS 08/03/21 08/29/21 History [Tylenol PM 500-25mg] Amiodarone [Cordarone] 200 mg PO DAILY 08/03/21 08/29/21 History Acetaminophen Tab [Tylenol] 650 mg PO Q6HR PRN tab 09/02/21 Rx Pantoprazole [Protonix] 40 mg PO AC-BRKFST #30 tab 09/02/21 Rx Allergies Allergy/AdvReac Type Severity Reaction Status Date / Time Sulfa (Sulfonamide Allergy Rash/Hives Verified 08/29/21 18:50 Antibiotics) Physical Exam Vitals: Vital Signs Temp Pulse Pulse Resp BP BP Pulse Ox 09/02/21 08:10 74 09/02/21 07:57 72 09/02/21 07:00 97.6 F 67 18 148/69 97 09/02/21 02:32 97.9 F 79 18 146/74 93 L 09/02/21 01:18 18 09/01/21 21:31 70 09/01/21 21:18 78 09/01/21 20:00 18 09/01/21 19:25 98.2 F 69 18 149/77 95 09/01/21 15:00 97.5 F L 73 19 130/66 95 Intake and Output 09/01/21 09/02/21 09/02/21 22:59 06:59 14:59 Intake Total 300 Balance 300 Intake: Oral 300 Other: # Voids 1 2 Weight 86.1 kg Results 09/02/21 09:57 09/02/21 09:57 Cardiac Enzymes 09/02/21 Range/Units 09:57 AST 29 (14-36) U/L CBC 09/01/21 09/02/21 09/02/21 Range/Units 04:48 07:44 09:57 WBC 9.71 7.2 8.5 (4.50-10.00) X 10*3/uL RBC 2.91 L 3.28 L 3.33 L (4.10-5.20) X 10*6/uL Hgb 7.7 L 8.9 L D 8.9 L (12.0-15.0) g/dL Hct 26.2 L 28.9 L 28.9 L (37.2-46.3) % Plt Count 264 286 316 (140-440) X 10*3/uL Comprehensive Metabolic Panel 09/02/21 09/02/21 Range/Units 07:44 09:57 Sodium 141 138 (137-145) mmol/L Potassium 4.6 5.1 (3.5-5.1) mmol/L Chloride 108 H 107 (98-107) mmol/L Carbon Dioxide 26 22 (22-30) mmol/L BUN 46 H 44 H (7-17) mg/dL Creatinine 1.35 H 1.45 H (0.52-1.04) mg/dL Glucose 90 208 H (74-99) mg/dL Calcium 9.3 9.2 (8.4-10.2) mg/dL AST 29 (14-36) U/L ALT 20 (4-34) U/L Alkaline Phosphatase 67 (38-126) U/L Total Protein 6.4 (6.3-8.2) g/dL Albumin 3.9 (3.5-5.0) g/dL Current Medications Generic Name Dose Route Start Last Admin Trade Name Freq PRN Reason Stop Dose Admin Acetaminophen 650 mg 08/29/21 19:20 Acetaminophen Tab 325 Mg Tab PO Q6HR PRN Mild Pain or Fever > 100.5 Albuterol/Ipratropium 3 ml 08/29/21 20:00 09/02/21 07:57 Ipratropium-Albuterol 3 Ml Neb INHALATION 3 ml RT-QID ALTHEA Administration Albuterol/Ipratropium 3 ml 08/30/21 04:00 08/31/21 03:54 Ipratropium-Albuterol 3 Ml Neb INHALATION 3 ml RT-Q2H PRN Administration Shortness Of Breath Or Wheezing Amiodarone HCl 200 mg 08/30/21 09:45 09/02/21 08:41 Amiodarone 200 Mg Tab PO 200 mg DAILY ALTHEA Administration Atorvastatin Calcium 10 mg 08/30/21 21:00 09/01/21 20:14 Atorvastatin 10 Mg Tab PO 10 mg HS ALTHEA Administration Glipizide 10 mg 08/30/21 17:30 09/02/21 08:41 Glipizide 10 Mg Tab PO 10 mg BID-W/MEALS ALTHEA Administration Insulin Aspart 0 unit 08/30/21 12:30 09/02/21 08:08 Insulin Aspart (Novolog) 100 Unit/Ml Vial SQ Not Given ACHS ALTHEA Protocol Memantine 10 mg 08/31/21 21:00 09/01/21 20:14 Memantine 10 Mg Tab PO 10 mg HS ALTHEA Administration Naloxone HCl 0.2 mg 08/29/21 19:20 Naloxone 0.4 Mg/Ml 1 Ml Vial IV Q2M PRN Opioid Reversal Pantoprazole Sodium 40 mg 08/31/21 13:45 09/02/21 08:41 Pantoprazole 40 Mg Tablet PO 40 mg AC-BRKFST ALTHEA Administration Prednisone 20 mg 08/31/21 09:00 09/02/21 08:42 Prednisone 20 Mg Tab PO 20 mg DAILY ALTHEA Administration Intake and Output 09/01/21 09/02/21 09/02/21 22:59 06:59 14:59 Intake Total 300 Balance 300 Intake: Oral 300 Other: # Voids 1 2 Weight 86.1 kg 09/02/21 09:57 09/02/21 09:57
--- NOTE | 2021-09-02 13:46 | P.PN ---
Subjective Progress Note Date: 09/02/21 CHIEF COMPLAINT: Anemia HISTORY OF PRESENT ILLNESS: The patient is a 86 year old female recently discharged from the hospital less than 3 weeks ago for similar episode of anemia. At that time, she had both an upper and lower endoscopy performed which had shown mild antral gastritis, small hiatal hernia, mild esophagitis, severe diverticulosis and external hemorrhoids. At that time there is no evidence of active GI bleed. The anemia could've been related to esophagitis, diverticular bleed or hemorrhoids. Patient was restarted on her Eliquis at that time. Eliquis has now been placed on hold. Patient denies any blood in the stools or black stools. She denies any abdominal pain. Afebrile. Hemoglobin has trended up to 8.9 PHYSICAL EXAM: VITAL SIGNS: Reviewed. GENERAL: Well-developed in no acute distress. HEENT: No sclera icterus. Extraocular movements grossly intact. Moist buccal mucosa. Head is atraumatic, normocephalic. ABDOMEN: Soft. Nondistended. Nontender. NEUROLOGIC: Alert and oriented. Cranial nerves II through XII grossly intact. ASSESSMENT: 1. Anemia status post blood transfusion 2. Iron deficiency anemia PLAN: -Patient is stable from surgical standpoint for discharge -No surgical intervention planned -Recommend Continue to hold Eliquis -Appreciate cardiology recommendations -Continue PPI for gastritis Physician Telephone Lineworker note has been reviewed by physician. Signing provider agrees with the documented findings, assessment, and plan of care. Objective - Vital Signs Vital signs: Vital Signs Temp 97.6 F 09/02/21 07:00 Pulse 74 09/02/21 08:10 Resp 18 09/02/21 07:00 BP 148/69 09/02/21 07:00 Pulse Ox 97 09/02/21 07:00 Intake & Output 09/01/21 09/02/21 09/02/21 18:59 06:59 18:59 Intake Total 358 300 Balance 358 300 Weight 86.1 kg Intake: Oral 358 300 Other: # Voids 6 2 # Bowel Movements 1 - Labs CBC & Chem 7: 09/02/21 09:57 09/02/21 09:57 Labs: Abnormal Lab Results - Last 24 Hours (Table) 08/31/21 09/01/21 09/01/21 Range/Units 05:12 04:48 04:48 RBC (3.80-5.40) m/uL Hgb (11.4-16.0) gm/dL Hct (34.0-46.0) % MCHC (31.0-37.0) g/dL RDW (11.5-15.5) % ESR 40 H (0-30) mm/Hr Chloride (98-107) mmol/L BUN (7-17) mg/dL Creatinine (0.52-1.04) mg/dL Glucose (74-99) mg/dL POC Glucose (mg/dL) (75-99) mg/dL Free T4 1.830 H (0.800-1.800) ng/dL Free [place] LC, Quant 4.61 H (0.33-1.94) mg/dL Free Lambda LC, Quant 3.13 H (0.57-2.63) mg/dL 09/01/21 09/01/21 09/02/21 Range/Units 17:02 19:54 07:44 RBC 3.28 L (3.80-5.40) m/uL Hgb 8.9 L D (11.4-16.0) gm/dL Hct 28.9 L (34.0-46.0) % MCHC 30.8 L (31.0-37.0) g/dL RDW 19.0 H (11.5-15.5) % ESR (0-30) mm/Hr Chloride (98-107) mmol/L BUN (7-17) mg/dL Creatinine (0.52-1.04) mg/dL Glucose (74-99) mg/dL POC Glucose (mg/dL) 385 H 272 H (75-99) mg/dL Free T4 (0.800-1.800) ng/dL Free [place] LC, Quant (0.33-1.94) mg/dL Free Lambda LC, Quant (0.57-2.63) mg/dL 09/02/21 09/02/21 09/02/21 Range/Units 07:44 09:57 09:57 RBC 3.33 L (3.80-5.40) m/uL Hgb 8.9 L (11.4-16.0) gm/dL Hct 28.9 L (34.0-46.0) % MCHC 30.8 L (31.0-37.0) g/dL RDW 19.4 H (11.5-15.5) % ESR (0-30) mm/Hr Chloride 108 H (98-107) mmol/L BUN 46 H 44 H (7-17) mg/dL Creatinine 1.35 H 1.45 H (0.52-1.04) mg/dL Glucose 208 H (74-99) mg/dL POC Glucose (mg/dL) (75-99) mg/dL Free T4 (0.800-1.800) ng/dL Free [place] LC, Quant (0.33-1.94) mg/dL Free Lambda LC, Quant (0.57-2.63) mg/dL 09/02/21 Range/Units 12:32 RBC (3.80-5.40) m/uL Hgb (11.4-16.0) gm/dL Hct (34.0-46.0) % MCHC (31.0-37.0) g/dL RDW (11.5-15.5) % ESR (0-30) mm/Hr Chloride (98-107) mmol/L BUN (7-17) mg/dL Creatinine (0.52-1.04) mg/dL Glucose (74-99) mg/dL POC Glucose (mg/dL) 346 H (75-99) mg/dL Free T4 (0.800-1.800) ng/dL Free [place] LC, Quant (0.33-1.94) mg/dL Free [place]ambda LC, Quant (0.57-2.63) mg/dL
--- NOTE | 2021-09-02 15:34 | P.PN ---
Subjective Progress Note Date: 09/02/21 Principal diagnosis: Symptomatic Iron Deficiency Anemia Await CBC today, status post 2/3 IV Iron. 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 Discussed with Cardiology today as patient is on Eliquis, per cardiology ok to hold off on anticoagulation at this time since recurrent admissions for GI bleed blood loss anemia. Hemoglobin improving and Parental Iron continued. Objective - Vital Signs Vital signs: Vital Signs Temp 97.6 F 09/02/21 07:00 Pulse 74 09/02/21 08:10 Resp 18 09/02/21 07:00 BP 148/69 09/02/21 07:00 Pulse Ox 97 09/02/21 07:00 Intake & Output 09/01/21 09/02/21 09/02/21 18:59 06:59 18:59 Intake Total 358 300 Balance 358 300 Weight 86.1 kg Intake: Oral 358 300 Other: # Voids 6 2 # Bowel Movements 1 - Exam Alert and Oriented NAD Head: NC/AT Neck: Supple Lungs: CTA Heart: Irr Abdomen: Soft, Non-tender Ext: No edema - Labs CBC & Chem 7: 09/02/21 09:57 09/02/21 09:57 Labs: Abnormal Lab Results - Last 24 Hours (Table) 08/31/21 09/01/21 09/01/21 Range/Units 05:12 04:48 04:48 RBC 2.91 L (4.10-5.20) X 10*6/uL Hgb 7.7 L (12.0-15.0) g/dL Hct 26.2 L (37.2-46.3) % MCH 26.5 L (27.0-32.0) pg MCHC 29.4 L (32.0-37.0) g/dL RDW 19.3 H (11.5-14.5) % Absolute Nucleated RBC 0.04 H (0.00-0.00) X 10*3/uL NRBC/100 WBC Diff 0.4 H (0.0-0.0) /100 WBCS ESR 40 H (0-30) mm/Hr Retic Count 2.10 H (0.10-1.80) % Chloride (98-107) mmol/L Carbon Dioxide (21.6-31.8) mmol/L Anion Gap (4.00-12.00) mmol/L BUN (9.0-27.0) mg/dL Creatinine (0.6-1.5) mg/dL Est GFR (CKD-EPI)AfAm (60.0-200.0) Est GFR (CKD-EPI)NonAf (60.0-200.0) BUN/Creatinine Ratio (12.00-20.00) Ratio Glucose (70-110) mg/dL POC Glucose (mg/dL) (75-99) mg/dL Total Protein (PEP) 6.0 L (6.2-8.2) g/dL Free T4 1.830 H (0.800-1.800) ng/dL Free [place] LC, Quant 4.61 H (0.33-1.94) mg/dL Free Lambda LC, Quant 3.13 H (0.57-2.63) mg/dL 09/01/21 09/01/21 09/01/21 Range/Units 04:48 10:21 12:03 RBC (4.10-5.20) X 10*6/uL Hgb (12.0-15.0) g/dL Hct (37.2-46.3) % MCH (27.0-32.0) pg MCHC (32.0-37.0) g/dL RDW (11.5-14.5) % Absolute Nucleated RBC (0.00-0.00) X 10*3/uL NRBC/100 WBC Diff (0.0-0.0) /100 WBCS ESR (0-30) mm/Hr Retic Count (0.10-1.80) % Chloride (98-107) mmol/L Carbon Dioxide 21.0 L (21.6-31.8) mmol/L Anion Gap 13.10 H (4.00-12.00) mmol/L BUN 56.2 H (9.0-27.0) mg/dL Creatinine 1.7 H (0.6-1.5) mg/dL Est GFR (CKD-EPI)AfAm 30.5 L (60.0-200.0) Est GFR (CKD-EPI)NonAf 26.3 L (60.0-200.0) BUN/Creatinine Ratio 32.67 H (12.00-20.00) Ratio Glucose 134 H (70-110) mg/dL POC Glucose (mg/dL) 146 H 231 H (75-99) mg/dL Total Protein (PEP) (6.2-8.2) g/dL Free T4 (0.800-1.800) ng/dL Free [place] LC, Quant (0.33-1.94) mg/dL Free [place]ambda LC, Quant (0.57-2.63) mg/dL 09/01/21 09/01/21 09/02/21 Range/Units 17:02 19:54 07:44 RBC 3.28 L (4.10-5.20) X 10*6/uL Hgb 8.9 L D (12.0-15.0) g/dL Hct 28.9 L (37.2-46.3) % MCH (27.0-32.0) pg MCHC 30.8 L (32.0-37.0) g/dL RDW 19.0 H (11.5-14.5) % Absolute Nucleated RBC (0.00-0.00) X 10*3/uL NRBC/100 WBC Diff (0.0-0.0) /100 WBCS ESR (0-30) mm/Hr Retic Count (0.10-1.80) % Chloride (98-107) mmol/L Carbon Dioxide (21.6-31.8) mmol/L Anion Gap (4.00-12.00) mmol/L BUN (9.0-27.0) mg/dL Creatinine (0.6-1.5) mg/dL Est GFR (CKD-EPI)AfAm (60.0-200.0) Est GFR (CKD-EPI)NonAf (60.0-200.0) BUN/Creatinine Ratio (12.00-20.00) Ratio Glucose (70-110) mg/dL POC Glucose (mg/dL) 385 H 272 H (75-99) mg/dL Total Protein (PEP) (6.2-8.2) g/dL Free T4 (0.800-1.800) ng/dL Free [place] LC, Quant (0.33-1.94) mg/dL Free [place] LC, Quant (0.57-2.63) mg/dL 09/02/21 Range/Units 07:44 RBC (4.10-5.20) X 10*6/uL Hgb (12.0-15.0) g/dL Hct (37.2-46.3) % MCH (27.0-32.0) pg MCHC (32.0-37.0) g/dL RDW (11.5-14.5) % Absolute Nucleated RBC (0.00-0.00) X 10*3/uL NRBC/100 WBC Diff (0.0-0.0) /100 WBCS ESR (0-30) mm/Hr Retic Count (0.10-1.80) % Chloride 108 H (98-107) mmol/L Carbon Dioxide (21.6-31.8) mmol/L Anion Gap (4.00-12.00) mmol/L BUN 46 H (9.0-27.0) mg/dL Creatinine 1.35 H (0.6-1.5) mg/dL Est GFR (CKD-EPI)AfAm (60.0-200.0) Est GFR (CKD-EPI)NonAf (60.0-200.0) BUN/Creatinine Ratio (12.00-20.00) Ratio Glucose (70-110) mg/dL POC Glucose (mg/dL) (75-99) mg/dL Total Protein (PEP) (6.2-8.2) g/dL Free T4 (0.800-1.800) ng/dL Free [place] LC, Quant (0.33-1.94) mg/dL Free Lambda LC, Quant (0.57-2.63) mg/dL Assessment and Plan (1) Acute blood loss anemia Status: Acute Priority: High Code(s): D62 - ACUTE POSTHEMORRHAGIC ANEMIA SNOMED Code(s): 538238552 (2) JOSÉ LUIS (acute kidney injury) Status: Acute Code(s): N17.9 - ACUTE KIDNEY FAILURE, UNSPECIFIED SNOMED Code(s): 36282066 (3) Anemia Status: Acute Code(s): D64.9 - ANEMIA, UNSPECIFIED SNOMED Code(s): 342404037 Plan: Symptomatic Anemia likely related to GI blood loss: AVMs small bowel and Gastritis. - Discussed Anticoagulation with cardiology and per cardioogy with recurrent hospitalizations ok to hold off on AC therapy at this time - Parental Iron ordered and patient status post 2 of 3. Ok to discharge from oncology standpoint post 3rd infusion, discussed plan for follow-up with patient and recommend 4 week repeat iron studies. Intermittent parental iron can be given PRN as outpatient - Defer Anticoagulation to Cardiology
--- NOTE | 2021-09-04 14:26 | P.DS ---
Providers Date of admission: 08/29/21 19:20 Expected date of discharge: 09/02/21 Attending physician: Ja Stevenson Consults: 08/31/21 08:35 Consult Physician Routine Consulting Provider: Segundo Redman Consult Reason/Comments: GIB Do you want consulting provider notified?: Already Contacted 08/31/21 09:21 Consult Physician Routine Consulting Provider: Santi Alamo Consult Reason/Comments: anemia Do you want consulting provider notified?: Yes 09/02/21 10:47 Consult Physician Routine Consulting Provider: Pilo Grande Consult Reason/Comments: alternative/recommendation for eliquis Do you want consulting provider notified?: Yes Primary care physician: Ja Stevenson [facility] Course: Final Diagnoses: Shortness of breath secondary to anemia, status post transfusion of packed 1units RBCs, iron deficient Acute renal failure, prerenal azotemia secondary to diuretic therapy Hyperkalemia, resolved Chronic CHF, diastolic dysfunction, no acute exacerbation Diabetes mellitus Hyperlipidemia Chronic proximal atrial fibrillation Hospital course:This 86-year-old admitted with anemia, recently hospitalized possibly 3 weeks ago with similar presentation. During that hospitalization patient proceeded with EGD and colonoscopy reporting mild antral gastritis, small hiatal hernia, mild esophagitis, severe diverticulosis and external hemorrhoids, with no evidence of active GI bleed. Patient's Eliquis was resumed at that time. Maintained on PPI. Evaluated by hematology, recommendations noted and appreciated, including IV iron ordered. Labs pending. Denies abdominal pain. Denies dark or bloody stools. Ambulating with in room, tolerating exertion well. Denies chest pain, palpitations or shortness of breath. Maintained on PPI, IV iron infusions with oxygen weaned off. Evaluated by cardiology, hematology. Patient denies any blood in stools/dextrose. Denies nausea vomiting or diarrhea. Denies any abdominal pain. Received transfusion of packed RBCs with hemoglobin currently up to 8.9. Denies any lightheadedness dizziness or focal deficits. Denies any chest pain, palpitations or shortness of breath.Cardiology consulted by hematology, recommending continue to hold Eliquis, follow-up in clinic with cardiology, patient might be possible candidate for a watchman. Losartan on hold secondary to renal function. Labs pending. Patient has been requiring sliding scale consistently, metformin to be resumed at home with close monitoring of [id number]-obxiul-up with Accu-Cheks in clinic. Patient will be discharged home today in a stable condition with g uarded prognosis. The impression and plan of care has been dictated as directed. : I performed a history and examination of this patient, discussed the same with the dictator. I agree with the dictator's note ,documented as a scribe. Any additional findings or plans will be noted. Patient Condition at Discharge: Stable Plan - Discharge Summary Discharge Rx Participant: No New Discharge Prescriptions: New Acetaminophen Tab [Tylenol] 650 mg PO Q6HR PRN tab PRN Reason: Mild Pain Or Fever > 100.5 Pantoprazole [Protonix] 40 mg PO AC-BRKFST #30 tab Continue glipiZIDE [Glipizide] 10 mg PO BID Acetaminophen/Diphenhydramine [Tylenol PM 500-25mg] 1 tab PO HS Amiodarone [Cordarone] 200 mg PO DAILY Memantine [Namenda] 20 mg PO HS Lovastatin [Mevacor] 20 mg PO HS Discontinued metFORMIN HCL ER [Glucophage XR] 500 mg PO DAILY@1300 Losartan Potassium [Cozaar] 25 mg PO HS Apixaban [Eliquis] 5 mg PO BID #60 tab Discharge Medication List glipiZIDE [Glipizide] 10 mg PO BID 04/15/17 [History] Lovastatin [Mevacor] 20 mg PO HS 05/01/21 [History] Memantine [Namenda] 20 mg PO HS 05/01/21 [History] Acetaminophen/Diphenhydramine [Tylenol PM 500-25mg] 1 tab PO HS 08/03/21 [History] Amiodarone [Cordarone] 200 mg PO DAILY 08/03/21 [History] Acetaminophen Tab [Tylenol] 650 mg PO Q6HR PRN tab 09/02/21 [Rx] Pantoprazole [Protonix] 40 mg PO AC-BRKFST #30 tab 09/02/21 [Rx] Follow up [facility]ment[facility] - 1 Week Pilo Grande MD [STAFF PHYSICIAN] - 09/09/21 4:15 pm Ja Stevenson DO [Primary Care Provider] - 3 Days Ambulatory/Diagnostic Orders: Complete Blood Count w/diff [LAB.AMB] Time Frame: 3 Days, Location: None Selected Patient Instructions/Handouts: Heart Failure (DC), Iron Deficiency Anemia (DC) Activity/Diet/Wound Care/Special Instructions: Cardiology consulted by hematology, recommending continue to hold Eliquis, follow-up in clinic with cardiology, patient might be possible candidate for a watchman. Losartan on hold secondary to renal function. Labs pending. Patient has been requiring sliding scale consistently, metformin to be resumed at home with close monitoring of [id number]-up with Accu-Cheks in clinic. Discharge Disposition: HOME SELF-CARE
== END 2021-09-02 15:00 | disposition home or self-care (01) | DRG 378 ==
LOC: EC 16:04 → 4SSUR 19:20 → 6NMEDSUR 19:58
PROVIDERS: ADMIT Family Medicine; ATTEND Family Medicine
PROC: 30233N1 Transfusion of Nonautologous Red Blood Cells into Peripheral Vein, Percutaneous Approach (ICD-10-PCS; principal; 2021-08-30)
DX: K57.31 Diverticulosis of large intestine without perforation or abscess with bleeding (principal); D62 Acute posthemorrhagic anemia; N17.9 Acute kidney failure, unspecified; I50.32 Chronic diastolic (congestive) heart failure; I13.0 Hypertensive heart and chronic kidney disease with heart failure and stage 1 through stage 4 chronic kidney disease, or unspecified chronic kidney disease; K55.20 Angiodysplasia of colon without hemorrhage; K29.70 Gastritis, unspecified, without bleeding; Z20.822 Contact with and (suspected) exposure to COVID-19; Z90.710 Acquired absence of both cervix and uterus; Z87.891 Personal history of nicotine dependence; Z82.49 Family history of ischemic heart disease and other diseases of the circulatory system; Z79.899 Other long term (current) drug therapy; Z79.84 Long term (current) use of oral hypoglycemic drugs; Z79.01 Long term (current) use of anticoagulants; I27.22 Pulmonary hypertension due to left heart disease; I35.0 Nonrheumatic aortic (valve) stenosis; I48.0 Paroxysmal atrial fibrillation; E87.5 Hyperkalemia; E78.5 Hyperlipidemia, unspecified; E11.22 Type 2 diabetes mellitus with diabetic chronic kidney disease; E11.51 Type 2 diabetes mellitus with diabetic peripheral angiopathy without gangrene; N18.9 Chronic kidney disease, unspecified; T50.2X5A Adverse effect of carbonic-anhydrase inhibitors, benzothiadiazides and other diuretics, initial encounter; J84.10 Pulmonary fibrosis, unspecified; D53.9 Nutritional anemia, unspecified; K20.90 Esophagitis, unspecified without bleeding; K64.9 Unspecified hemorrhoids; K44.9 Diaphragmatic hernia without obstruction or gangrene; K64.4 Residual hemorrhoidal skin tags
CPT/HCPCS: 36415; 71046; 80048; 80053; 82607; 82668; 82728; 82746; 82784; 82947; 83010; 83036; 83540; 83550; 83605; 83615; 83735; 83880; 83883; 83921; 84165; 84439; 84443; 84484; 85025; 85027; 85045; 85610; 85652; 85730; 86038; 86334; 86431; 86850; 86900; 86901; 86920; 87635; 93005; 94640; 94760; 96365; 96366; 96375; 99285

== ENCOUNTER 2021-09-22 18:09 | Observation (INO) | payer MEDICARE ==
[2021-09-22 18:21] LABS: Glucose,Whole Blood 47 mg/dL (75-99)
[2021-09-22 18:27] VITALS: TEMP 97.6
[2021-09-22 18:59] LABS: Anisocytosis Slight; Basophils % (A) 0 %; Eosinophils # (A) 0.1 k/uL (0-0.7); Eosinophils % (A) 2 %; HCT 30.8 % (34.0-46.0); HGB 9.5 gm/dL (11.4-16.0); Hypochromasia Marked; Lymphocytes # (A) 0.5 k/uL (1.0-4.8); Lymphocytes % (A) 12 %; MCH 27.3 pg (25.0-35.0); MCHC 30.7 g/dL (31.0-37.0); MCV 88.9 fL (80.0-100.0); Mean Platelet Volume 7.9; Monocytes # (A) 0.3 k/uL (0-1.0); Monocytes % (A) 6 %; Neutrophils # (A) 3.4 k/uL (1.3-7.7); Neutrophils % (A) 78 %; Platelet Count 269 k/uL (150-450); Poikilocytosis Slight; RBC 3.47 m/uL (3.80-5.40); RDW 19.2 % (11.5-15.5); WBC 4.4 k/uL (3.8-10.6)
[2021-09-22 19:03] LABS: Glucose,Whole Blood 104 mg/dL (75-99)
[2021-09-22 19:15] LABS: Calcium 9.1 mg/dL (8.4-10.2); Magnesium 1.6 mg/dL (1.6-2.3); Potassium 4.7 mmol/L (3.5-5.1)
--- NOTE | 2021-09-22 19:38 | ED ---
General Adult HPI - General Chief complaint: Recheck/Abnormal Lab/Rx Stated complaint: Hypoglycemia Time Seen by Provider: 09/22/21 18:17 Source: patient Mode of arrival: EMS Limitations: no limitations - History of Present Illness Initial comments: Dictation was produced using [employer] dictation software. please excuse any grammatical, word or spelling errors. Chief Complaint: 86-year-old diabetic presents with hypoglycemia History of Present Illness: 86-year-old female presents emergency department for hypoglycemia. Patient states she's been feeling shaky and out of sorts for the last 3-4 days. This morning she felt really shaky. She was somehow able to call somebody on the phone who realized that patient was not acting right. EMS arrived on scene found patient be altered. Her initial blood sugar was 47. His being treated with oral glucose patient's been feeling fine. She takes glipizide and metformin for diabetes. She's been on these medications for several months without any issues. She has her diabetes management primary care doctor. At the bedside patient has no complaints. The ROS documented in this emergency department record has been reviewed and confirmed by me. Those systems with pertinent positive or negative responses have been documented in the HPI. All other systems are other negative and/or noncontributory. PHYSICAL EXAM: General Impression: Alert and oriented x3, not in acute distress HEENT: Normocephalic atraumatic, extra-ocular movements intact, pupils equal and reactive to light bilaterally, mucous membranes moist. Cardiovascular: Heart regular rate and rhythm Chest: Able to complete full sentences, no retractions, no tachypnea Musculoskeletal: no peripheral edema Motor: no focal deficits noted Neurological: CN II-XII grossly intact, no focal motor or sensory deficits noted Skin: Intact with no visualized rashes Psych: Normal affect and mood ED course: 86-year-old female says the emergency department for hypoglycemia. At this point is not clear what is causing patient's hypoglycemia. She has no localizing symptoms. She does take glipizide. In the emergency department her blood glucose was 47. She was treated with orange juice. Repeat blood sugar is 104. CBC, metabolic panel is unremarkable. Patient be admitted for glucose monitoring. EKG interpretation: Ventricular rate of 90, normal sinus rhythm, OK interval 184, QRS 110, QTc 477. No OK prolongation, no QTC prolongation, no ST or T-wave changes noted. . Overall, this EKG is unremarkable Case discussed with Dr. Ja Stevenson is willing to admit patient for observation. - Related Data Home Medications Medication Instructions Recorded Confirmed glipiZIDE [Glipizide] 10 mg PO BID 04/15/17 09/22/21 Lovastatin [Mevacor] 20 mg PO HS 05/01/21 09/22/21 Memantine [Namenda] 10 mg PO BID 05/01/21 09/22/21 Acetaminophen/Diphenhydramine 1 tab PO HS 08/03/21 09/22/21 [Tylenol PM 500-25mg] Amiodarone [Cordarone] 200 mg PO DAILY 08/03/21 09/22/21 Losartan Potassium [Cozaar] 25 mg PO HS 09/22/21 09/22/21 metFORMIN HCL ER [Glucophage XR] 500 mg PO DAILY 09/22/21 09/22/21 Previous Rx's Medication Instructions Recorded Acetaminophen Tab [Tylenol] 650 mg PO Q6HR PRN tab 09/02/21 Pantoprazole [Protonix] 40 mg PO AC-BRKFST #30 tab 09/02/21 Allergies Allergy/AdvReac Type Severity Reaction Status Date / Time Sulfa (Sulfonamide Allergy Rash/Hives Verified 09/22/21 19:07 Antibiotics) Review of Systems ROS Statement: Those systems with pertinent positive or pertinent negative responses have been documented in the HPI. ROS Other: All systems not noted in ROS Statement are negative. 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 History of Any Multi-Drug Resistant Organisms: None Reported Past Surgical History: Hysterectomy Additional Past Surgical History / Comment(s): partial lung removal at [facility] Past Anesthesia/Blood Transfusion Reactions: No Reported Reaction Past Psychological History: No Psychological Hx Reported Smoking Status: Former smoker Past Alcohol Use History: None Reported Past Drug Use History: None Reported - Past Family History Mother Family Medical History: Cancer Father Family Medical History: Myocardial Infarction ([place]) General Exam Limitations: no limitations Course Vital Signs 09/22/21 18:22 Temperature 97.6 F Pulse Rate 83 Respiratory 16 Rate Blood Pressure 150/55 O2 Sat by Pulse 97 Oximetry Medical Decision Making - Lab Data Result diagrams: 09/22/21 18:44 09/22/21 18:44 Lab Results 09/22/21 09/22/21 09/22/21 Range/Units 18:19 18:44 18:44 WBC 4.4 (3.8-10.6) k/uL RBC 3.47 L (3.80-5.40) m/uL Hgb 9.5 L (11.4-16.0) gm/dL Hct 30.8 L (34.0-46.0) % MCV 88.9 (80.0-100.0) fL MCH 27.3 (25.0-35.0) pg MCHC 30.7 L (31.0-37.0) g/dL RDW 19.2 H (11.5-15.5) % Plt Count 269 (150-450) k/uL MPV 7.9 Neutrophils % 78 % Lymphocytes % 12 % Monocytes % 6 % Eosinophils % 2 % Basophils % 0 % Neutrophils # 3.4 (1.3-7.7) k/uL Lymphocytes # 0.5 L (1.0-4.8) k/uL Monocytes # 0.3 (0-1.0) k/uL Eosinophils # 0.1 (0-0.7) k/uL Basophils # 0.0 (0-0.2) k/uL Hypochromasia Marked Poikilocytosis Slight Anisocytosis Slight Sodium 139 (137-145) mmol/L Potassium 4.7 (3.5-5.1) mmol/L Chloride 106 (98-107) mmol/L Carbon Dioxide 23 (22-30) mmol/L Anion Gap 10 mmol/L BUN 27 H (7-17) mg/dL Creatinine 1.39 H (0.52-1.04) mg/dL Est GFR (CKD-EPI)AfAm 39 (>60 ml/min/1.73 sqM) Est GFR (CKD-EPI)NonAf 34 (>60 ml/min/1.73 sqM) Glucose 96 (74-99) mg/dL POC Glucose (mg/dL) 47 L (75-99) mg/dL POC Glu Guest Relations Coordinator ID Fetterly, Celeste Plasma Lactic Acid Ronny (0.7-2.0) mmol/L Calcium 9.1 (8.4-10.2) mg/dL Magnesium 1.6 (1.6-2.3) mg/dL Urine Color Urine Appearance (Clear) Urine pH (5.0-8.0) Ur Specific [place] (1.001-1.035) Urine Protein (Negative) Urine Glucose (UA) (Negative) Urine Ketones (Negative) Urine Blood (Negative) Urine Nitrite (Negative) Urine Bilirubin (Negative) Urine Urobilinogen (<2.0) mg/dL Ur Leukocyte Esterase (Negative) Urine RBC (0-5) /hpf Urine WBC (0-5) /hpf Ur Squamous Epith Cells (0-4) /hpf Hyaline Casts (0-2) /lpf Urine Mucus (None) /hpf 09/22/21 09/22/21 09/22/21 Range/Units 18:44 19:02 19:25 WBC (3.8-10.6) k/uL RBC (3.80-5.40) m/uL Hgb (11.4-16.0) gm/dL Hct (34.0-46.0) % MCV (80.0-100.0) fL MCH (25.0-35.0) pg MCHC (31.0-37.0) g/dL RDW (11.5-15.5) % Plt Count (150-450) k/uL MPV Neutrophils % % Lymphocytes % % Monocytes % % Eosinophils % % Basophils % % Neutrophils # (1.3-7.7) k/uL Lymphocytes # (1.0-4.8) k/uL Monocytes # (0-1.0) k/uL Eosinophils # (0-0.7) k/uL Basophils # (0-0.2) k/uL Hypochromasia Poikilocytosis Anisocytosis Sodium (137-145) mmol/L Potassium (3.5-5.1) mmol/L Chloride (98-107) mmol/L Carbon Dioxide (22-30) mmol/L Anion Gap mmol/L BUN (7-17) mg/dL Creatinine (0.52-1.04) mg/dL Est GFR (CKD-EPI)AfAm (>60 ml/min/1.73 sqM) Est GFR (CKD-EPI)NonAf (>60 ml/min/1.73 sqM) Glucose (74-99) mg/dL POC Glucose (mg/dL) 104 H (75-99) mg/dL POC Glu Guest Relations Coordinator ID Wendy Baker Plasma Lactic Acid Ronny 1.0 (0.7-2.0) mmol/L Calcium (8.4-10.2) mg/dL Magnesium (1.6-2.3) mg/dL Urine Color Light Yellow Urine Appearance Clear (Clear) Urine pH 5.0 (5.0-8.0) Ur Specific [place] 1.010 (1.001-1.035) Urine Protein Negative (Negative) Urine Glucose (UA) Negative (Negative) Urine Ketones Negative (Negative) Urine Blood Negative (Negative) Urine Nitrite Negative (Negative) Urine Bilirubin Negative (Negative) Urine Urobilinogen <2.0 (<2.0) mg/dL Ur Leukocyte Esterase Small H (Negative) Urine RBC <1 (0-5) /hpf Urine WBC 1 (0-5) /hpf Ur Squamous Epith Cells <1 (0-4) /hpf Hyaline Casts 1 (0-2) /lpf Urine Mucus Rare H (None) /hpf Disposition Clinical Impression: Hypoglycemia Disposition: ADMITTED IP TO THIS [facility] Condition: Fair Referrals: Ja Stevenson DO [Primary Care Provider] - 1-2 days
[2021-09-22 19:50] LABS: Appearance,Urine Clear (Clear); Bilirubin,Urine Negative (Negative); Blood,Urine Negative (Negative); Color,Urine Light Yellow; Glucose,Urine (UA) Negative (Negative); Hyaline Casts,Urine 1 /lpf (0-2); Ketones,Urine Negative (Negative); Leukocyte Esterase,Urine Small (Negative); Mucus,Urine Rare /hpf; Nitrite,Urine Negative (Negative); Protein,Urine Negative (Negative); RBC,Urine <1 /hpf (0-5); Squamous Epithelial Cell,Urine <1 /hpf (0-4); Urobilinogen,Urine <2.0 mg/dL (<2.0); WBC,Urine 1 /hpf (0-5)
[2021-09-22] MEDS ORDERED: NALOXONE 0.4 MG/ML 1 ML VIAL IV PRN (20:09)
[2021-09-22] MEDS ORDERED: SODIUM CHLORIDE 0.9% 1,000 ML IV SCH (20:15)
[2021-09-22 20:31] LABS: Glucose,Whole Blood 152 mg/dL (75-99)
[2021-09-23 05:02] LABS: Glucose,Whole Blood 60 mg/dL (75-99)
[2021-09-23 06:06] LABS: Glucose,Whole Blood 123 mg/dL (75-99)
[2021-09-23 07:21] LABS: Glucose,Whole Blood 93 mg/dL (75-99)
[2021-09-23 09:52] VITALS: BP 175/85; PULSE 79; RESP 16
--- NOTE | 2021-09-23 11:51 | P.HPIM ---
History of Present Illness H&P Date: 09/23/21 Chief Complaint: Hypoglycemia History and Physical and Discharge Summary This is an 86-year-old female recently admitted with anemia acute renal failure and multiple other medical issues. During previous admission cardiology had made further adjustments inpatient medication regime including holding on Eliquis and following up in clinic regarding possible candidate for watchman. Patient had been feeling shaky, for the last 3-4 days, without nausea vomiting or diarrhea. presented to the ER and discovered to be hypoglycemic with blood sugar 47. She takes glipizide and metformin for her diabetes . Received oral glucose with current blood sugars averaging 90s to 120s. Hemoglobin 9.5, platelets 269. EKG reports normal sinus rhythm. Denies chest pain, palpitations or shortness of breath. Denies any lightheadedness, dizziness or focal deficits. Afebrile, normal WBC. BUN 27, creatinine 1.39. Coronavirus not detected. Review of Systems ROS Statement: Those systems with pertinent positive or pertinent negative responses have been documented in the HPI. ROS Other: All systems not noted in ROS Statement are negative. 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 History of Any Multi-Drug Resistant Organisms: None Reported Past Surgical History: Hysterectomy Additional Past Surgical History / Comment(s): partial lung removal at [facility] Past Anesthesia/Blood Transfusion Reactions: No Reported Reaction Past Psychological History: No Psychological Hx Reported Smoking Status: Former smoker Past Alcohol Use History: None Reported Past Drug Use History: None Reported - Past Family History Mother Family Medical History: Cancer Father Family Medical History: Myocardial Infarction ([place]) Medications and Allergies Home Medications Medication Instructions Recorded Confirmed Type Lovastatin [Mevacor] 20 mg PO HS 05/01/21 09/22/21 History Memantine [Namenda] 10 mg PO BID 05/01/21 09/22/21 History Acetaminophen/Diphenhydramine 1 tab PO HS 08/03/21 09/22/21 History [Tylenol PM 500-25mg] Amiodarone [Cordarone] 200 mg PO DAILY 08/03/21 09/22/21 History Acetaminophen Tab [Tylenol] 650 mg PO Q6HR PRN tab 09/02/21 09/22/21 Rx Pantoprazole [Protonix] 40 mg PO AC-BRKFST #30 tab 09/02/21 09/22/21 Rx Losartan Potassium [Cozaar] 25 mg PO HS 09/22/21 09/22/21 History metFORMIN HCL ER [Glucophage XR] 500 mg PO DAILY 09/22/21 09/22/21 History Allergies Allergy/AdvReac Type Severity Reaction Status Date / Time Sulfa (Sulfonamide Allergy Rash/Hives Verified 09/22/21 19:07 Antibiotics) Physical Exam Vitals: Vital Signs Temp Pulse Resp BP Pulse Ox 09/23/21 09:51 79 16 175/85 98 09/23/21 09:32 17 09/23/21 05:00 76 18 154/61 99 09/23/21 04:19 77 16 154/61 94 L 09/23/21 00:00 71 18 163/74 94 L 09/22/21 23:00 65 18 164/71 93 L 09/22/21 21:11 79 18 189/60 99 09/22/21 18:22 97.6 F 83 16 150/55 97 Intake and Output 09/22/21 09/23/21 09/23/21 22:59 06:59 14:59 Other: Weight 87.543 kg PHYSICAL EXAMINATION: GENERAL:Patient is alert and oriented x3, sitting up on stretcher,NAD HEENT: Pupils are round and equally reacting to light. EOMI. No scleral icterus. No conjunctival pallor. Normocephalic, atraumatic. Oral mucosa moist. CARDIOVASCULAR: S1 and S2 present. No murmurs, rubs, or gallops. PULMONARY: Lungs essentially clear with bilateral bases diminished ABDOMEN: Soft, nontender, nondistended, normoactive bowel sounds. No palpable organomegaly. No guarding. EXTREMITIES: No cyanosis, clubbing, or pedal edema. NEUROLOGICAL: Gross neurological examination did not reveal any focal deficits. SKIN: Warm and dry, No rashes. Results CBC & Chem 7: 09/22/21 18:44 09/22/21 18:44 Labs: Abnormal Lab Results - Last 24 Hours (Table) 09/22/21 09/22/21 09/22/21 Range/Units 18:19 18:44 18:44 RBC 3.47 L (3.80-5.40) m/uL Hgb 9.5 L (11.4-16.0) gm/dL Hct 30.8 L (34.0-46.0) % MCHC 30.7 L (31.0-37.0) g/dL RDW 19.2 H (11.5-15.5) % Lymphocytes # 0.5 L (1.0-4.8) k/uL BUN 27 H (7-17) mg/dL Creatinine 1.39 H (0.52-1.04) mg/dL POC Glucose (mg/dL) 47 L (75-99) mg/dL Ur Leukocyte Esterase (Negative) Urine Mucus (None) /hpf 09/22/21 09/22/21 09/22/21 Range/Units 19:02 19:25 20:30 RBC (3.80-5.40) m/uL Hgb (11.4-16.0) gm/dL Hct (34.0-46.0) % MCHC (31.0-37.0) g/dL RDW (11.5-15.5) % Lymphocytes # (1.0-4.8) k/uL BUN (7-17) mg/dL Creatinine (0.52-1.04) mg/dL POC Glucose (mg/dL) 104 H 152 H (75-99) mg/dL Ur Leukocyte Esterase Small H (Negative) Urine Mucus Rare H (None) /hpf 09/23/21 09/23/21 Range/Units 05:00 06:04 RBC (3.80-5.40) m/uL Hgb (11.4-16.0) gm/dL Hct (34.0-46.0) % MCHC (31.0-37.0) g/dL RDW (11.5-15.5) % Lymphocytes # (1.0-4.8) k/uL BUN (7-17) mg/dL Creatinine (0.52-1.04) mg/dL POC Glucose (mg/dL) 60 L 123 H (75-99) mg/dL Ur Leukocyte Esterase (Negative) Urine Mucus (None) /hpf Assessment and Plan Assessment: Hypoglycemia, in a patient with diabetes mellitus Recently admitted with anemia, received IV iron infusions with anticoagulation and placed on hold per discussion between cardiology and hematology. Acute renal failure Hyperlipidemia Chronic proximal atrial fibrillation Chronic CHF, diastolic dysfunction Plan: Continue on current medication regime ,monitoring and symptomatic treatment. Significant clinical improvement. Patient will be discharged home today in a stable condition with guarded prognosis. Patient has been instructed to hold GLIPIZIDE at this time and reevaluate in the office next week with PCP, Dr. Stevenson. Discharge Medication List Lovastatin [Mevacor] 20 mg PO HS 05/01/21 [History] Memantine [Namenda] 10 mg PO BID 05/01/21 [History] Acetaminophen/Diphenhydramine [Tylenol PM 500-25mg] 1 tab PO HS 08/03/21 [Histo ry] Amiodarone [Cordarone] 200 mg PO DAILY 08/03/21 [History] Acetaminophen Tab [Tylenol] 650 mg PO Q6HR PRN tab 09/02/21 [Rx] Pantoprazole [Protonix] 40 mg PO AC-BRKFST #30 tab 09/02/21 [Rx] Losartan Potassium [Cozaar] 25 mg PO HS 09/22/21 [History] metFORMIN HCL ER [Glucophage XR] 500 mg PO DAILY 09/22/21 [History] The impression and plan of care has been dictated as directed. : I performed a history and examination of this patient, discussed the same with the dictator. I agree with the dictator's note ,documented as a scribe. Any additional findings or plans will be noted.
== END 2021-09-23 09:55 | disposition home or self-care (01) ==
LOC: EC 18:09 → 6NMEDSUR 20:09
PROVIDERS: ADMIT Family Medicine; ATTEND Family Medicine
DX: E11.649 Type 2 diabetes mellitus with hypoglycemia without coma (principal); E78.5 Hyperlipidemia, unspecified; N17.9 Acute kidney failure, unspecified; I48.0 Paroxysmal atrial fibrillation; Z20.822 Contact with and (suspected) exposure to COVID-19; I50.32 Chronic diastolic (congestive) heart failure; Z79.899 Other long term (current) drug therapy; Z79.84 Long term (current) use of oral hypoglycemic drugs; Z88.2 Allergy status to sulfonamides; Z87.891 Personal history of nicotine dependence; Z90.710 Acquired absence of both cervix and uterus; Z90.2 Acquired absence of lung [part of]; Z87.01 Personal history of pneumonia (recurrent); Z86.11 Personal history of tuberculosis; Z82.49 Family history of ischemic heart disease and other diseases of the circulatory system; Z80.9 Family history of malignant neoplasm, unspecified
CPT/HCPCS: 99284; 36415; 93005; 80048; 83605; 83735; 85025; 81001; 87635; G0378 ×2

== ENCOUNTER 2021-11-13 09:41 | Observation (INO) | payer MEDICARE ==
[2021-11-13] MEDS ORDERED: SODIUM CHLORIDE 0.9% 1,000 ML IV STA (09:54)
[2021-11-13 10:32] LABS: Anisocytosis Slight; Basophils # (A) 0.1 k/uL (0-0.2); Basophils % (A) 1 %; Eosinophils # (A) 0.1 k/uL (0-0.7); Eosinophils % (A) 2 %; HCT 37.8 % (34.0-46.0); HGB 11.5 gm/dL (11.4-16.0); Hypochromasia Marked; Lymphocytes % (A) 22 %; MCH 29.3 pg (25.0-35.0); MCHC 30.3 g/dL (31.0-37.0); Macrocytosis Slight; Mean Platelet Volume 8.2; Monocytes # (A) 0.3 k/uL (0-1.0); Monocytes % (A) 6 %; Neutrophils # (A) 2.9 k/uL (1.3-7.7); Neutrophils % (A) 68 %; Platelet Count 208 k/uL (150-450); RBC 3.92 m/uL (3.80-5.40); RDW 19.2 % (11.5-15.5); WBC 4.3 k/uL (3.8-10.6)
[2021-11-13 10:39] LABS: MCV 96.5 fL (80.0-100.0)
[2021-11-13 10:42] LABS: Albumin 4.1 g/dL (3.5-5.0); Calcium 9.3 mg/dL (8.4-10.2); Potassium 5.7 mmol/L (3.5-5.1); Total Bilirubin 0.5 mg/dL (0.2-1.3); Total Protein 6.7 g/dL (6.3-8.2)
--- NOTE | 2021-11-13 10:50 | XR ---
EXAMINATION TYPE: XR chest 2V DATE OF EXAM: 11/13/2021 COMPARISON: 08/29/2021 HISTORY: 86-year-old female weakness and shakiness TECHNIQUE: AP and lateral views FINDINGS: Heart upper limits of normal in size. Dense mitral annular calcifications. Slight asymmetric elevatio n left hemidiaphragm is unchanged. Interstitial prominence is unchanged. No sarabjit consolidation or pl eural effusion. [facility] in the mid and lower thoracic spine. Advanced degenerative changes left shoulder . IMPRESSION: 1. Dense mitral annular calcifications. 2. Interstitial prominence is unchanged and could reflect bronchitis or chronic asthma. 3. Slight asymmetric elevation left hemidiaphragm unchanged. If concern for hemidiaphragmatic paralys is, a fluoroscopic sniff test can be considered. 4. Advanced degenerative change left shoulder.
[2021-11-13 11:02] LABS: INR 0.9 (<1.2); Partial Thromboplastin Time 22.7 sec (22.0-30.0); Prothrombin Time 9.9 sec (9.0-12.0)
--- NOTE | 2021-11-13 12:14 | ED ---
Weakness HPI - General Chief complaint: Weakness Stated complaint: Shakiness, weakness Time Seen by Provider: 11/13/21 09:54 Source: patient, RN notes reviewed, Caregiver Mode of arrival: wheelchair Limitations: no limitations - History of Present Illness Initial comments: 86-year-old female presents to emergency room complaining of shakiness and generalized weakness. Patient denied any significant recent injury or illnesses. Patient does have a history of heart failure acute kidney injury and several other comorbidities. Patient was otherwise a well-appearing 86-year-old female. She denied any alleviating or aggravating factors. She denied chest pain shortness breath headache nausea vomiting diarrhea constipation fever fatigue chills. - Related Data Home Medications Medication Instructions Recorded Confirmed Lovastatin [Mevacor] 20 mg PO HS 05/01/21 11/13/21 Memantine [Namenda] 10 mg PO BID 05/01/21 11/13/21 Acetaminophen/Diphenhydramine 1 tab PO HS 08/03/21 11/13/21 [Tylenol PM 500-25mg] Amiodarone [Cordarone] 200 mg PO DAILY 08/03/21 11/13/21 Losartan Potassium [Cozaar] 25 mg PO HS 09/22/21 11/13/21 metFORMIN HCL ER [Glucophage XR] 500 mg PO DAILY 09/22/21 11/13/21 glipiZIDE [Glucotrol] 5 mg PO BID 11/13/21 11/13/21 Previous Rx's Medication Instructions Recorded Acetaminophen Tab [Tylenol] 650 mg PO Q6HR PRN tab 09/02/21 Allergies Allergy/AdvReac Type Severity Reaction Status Date / Time Sulfa (Sulfonamide Allergy Rash/Hives Verified 11/13/21 11:05 Antibiotics) Review of Systems ROS Statement: Those systems with pertinent positive or pertinent negative responses have been documented in the HPI. ROS Other: All systems not noted in ROS Statement are negative. 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 History of Any Multi-Drug Resistant Organisms: None Reported Past Surgical History: Hysterectomy Additional Past Surgical History / Comment(s): partial lung removal at [facility] Past Anesthesia/Blood Transfusion Reactions: No Reported Reaction Past Psychological History: No Psychological Hx Reported Smoking Status: Former smoker Past Alcohol Use History: None Reported Past Drug Use History: None Reported - Past Family History Mother Family Medical History: Cancer Father Family Medical History: Myocardial Infarction ([place]) General Exam Limitations: no limitations General appearance: alert, in no apparent distress Head exam: Present: atraumatic, normocephalic, normal inspection Eye exam: Present: normal appearance, PERRL, EOMI. Absent: scleral icterus, conjunctival injection, periorbital swelling ENT exam: Present: normal exam, mucous membranes moist Neck exam: Present: normal inspection Respiratory exam: Present: normal lung sounds bilaterally. Absent: respiratory distress, wheezes, rales, rhonchi, stridor Cardiovascular Exam: Present: regular rate, normal rhythm, normal heart sounds. Absent: systolic murmur, diastolic murmur, rubs, gallop, clicks Extremities exam: Present: normal inspection, full ROM, normal capillary refill. Absent: tenderness, pedal edema, joint swelling, calf tenderness Neurological exam: Present: alert, oriented X3 Psychiatric exam: Present: normal affect, normal mood Skin exam: Present: warm, dry, intact, normal color. Absent: rash Course Vital Signs 11/13/21 09:42 Temperature 97.1 F L Pulse Rate 62 Respiratory 18 Rate Blood Pressure 141/62 O2 Sat by Pulse 99 Oximetry EKG Findings - EKG Comments: EKG Findings:: Ventricular rate 62 bpm, [place] interval 174 ms, QRS duration 160 ms, QTC 483 ms, normal sinus rhythm, septal infarct age undetermined, abnormal ECG. Medical Decision Making - Medical Decision Making 86 female complaining of weakness and shakiness. Labs, EKG, chest x-ray, Cepheid 4 Plex ordered. Labs: Potassium slightly elevated at 5.7, rest unremarkable.. Chest x-ray negative for any acute process per EKG is within normal limits. Case discussed with Dr. Up. Dr. Stevenson was consulted once at the admit. - Lab Data Result diagrams: 11/13/21 10:13 11/13/21 10:13 Lab Results 11/13/21 11/13/21 11/13/21 Range/Units 10:13 10:13 10:13 WBC 4.3 (3.8-10.6) k/uL RBC 3.92 (3.80-5.40) m/uL Hgb 11.5 (11.4-16.0) gm/dL Hct 37.8 (34.0-46.0) % MCV 96.5 D (80.0-100.0) fL MCH 29.3 (25.0-35.0) pg MCHC 30.3 L (31.0-37.0) g/dL RDW 19.2 H (11.5-15.5) % Plt Count 208 (150-450) k/uL MPV 8.2 Neutrophils % 68 % Lymphocytes % 22 % Monocytes % 6 % Eosinophils % 2 % Basophils % 1 % Neutrophils # 2.9 (1.3-7.7) k/uL Lymphocytes # 1.0 (1.0-4.8) k/uL Monocytes # 0.3 (0-1.0) k/uL Eosinophils # 0.1 (0-0.7) k/uL Basophils # 0.1 (0-0.2) k/uL Hypochromasia Marked Anisocytosis Slight Macrocytosis Slight PT 9.9 (9.0-12.0) sec INR 0.9 (<1.2) APTT 22.7 (22.0-30.0) sec Sodium (137-145) mmol/L Potassium (3.5-5.1) mmol/L Chloride (98-107) mmol/L Carbon Dioxide (22-30) mmol/L Anion Gap mmol/L BUN (7-17) mg/dL Creatinine (0.52-1.04) mg/dL Est GFR (CKD-EPI)AfAm (>60 ml/min/1.73 sqM) Est GFR (CKD-EPI)NonAf (>60 ml/min/1.73 sqM) Glucose (74-99) mg/dL Plasma Lactic Acid Ronny (0.7-2.0) mmol/L Calcium (8.4-10.2) mg/dL Total Bilirubin (0.2-1.3) mg/dL AST (14-36) U/L ALT (4-34) U/L Alkaline Phosphatase (38-126) U/L Troponin I (0.000-0.034) ng/mL Total Protein (6.3-8.2) g/dL Albumin (3.5-5.0) g/dL Urine Color Light Yellow Urine Appearance Cloudy H (Clear) Urine pH 5.5 (5.0-8.0) Ur Specific [place] 1.008 (1.001-1.035) Urine Protein Negative (Negative) Urine Glucose (UA) Negative (Negative) Urine Ketones Negative (Negative) Urine Blood Negative (Negative) Urine Nitrite Negative (Negative) Urine Bilirubin Negative (Negative) Urine Urobilinogen <2.0 (<2.0) mg/dL Ur Leukocyte Esterase Trace H (Negative) Urine WBC 1 (0-5) /hpf Ur Squamous Epith Cells 1 (0-4) /hpf Hyaline Casts 1 (0-2) /lpf Influenza Type A (PCR) (Not Detectd) Influenza Type B (PCR) (Not Detectd) RSV (PCR) (Not Detectd) SARS-CoV-2 (PCR) (Not Detectd) 11/13/21 11/13/21 11/13/21 Range/Units 10:13 10:13 10:13 WBC (3.8-10.6) k/uL RBC (3.80-5.40) m/uL Hgb (11.4-16.0) gm/dL Hct (34.0-46.0) % MCV (80.0-100.0) fL MCH (25.0-35.0) pg MCHC (31.0-37.0) g/dL RDW (11.5-15.5) % Plt Count (150-450) k/uL MPV Neutrophils % % Lymphocytes % % Monocytes % % Eosinophils % % Basophils % % Neutrophils # (1.3-7.7) k/uL Lymphocytes # (1.0-4.8) k/uL Monocytes # (0-1.0) k/uL Eosinophils # (0-0.7) k/uL Basophils # (0-0.2) k/uL Hypochromasia Anisocytosis Macrocytosis PT (9.0-12.0) sec INR (<1.2) APTT (22.0-30.0) sec Sodium 138 (137-145) mmol/L Potassium 5.7 H (3.5-5.1) mmol/L Chloride 108 H (98-107) mmol/L Carbon Dioxide 24 (22-30) mmol/L Anion Gap 6 mmol/L BUN 44 H (7-17) mg/dL Creatinine 1.46 H (0.52-1.04) mg/dL Est GFR (CKD-EPI)AfAm 37 (>60 ml/min/1.73 sqM) Est GFR (CKD-EPI)NonAf 32 (>60 ml/min/1.73 sqM) Glucose 97 (74-99) mg/dL Plasma Lactic Acid Ronny 0.8 (0.7-2.0) mmol/L Calcium 9.3 (8.4-10.2) mg/dL Total Bilirubin 0.5 (0.2-1.3) mg/dL AST 20 (14-36) U/L ALT 13 (4-34) U/L Alkaline Phosphatase 66 (38-126) U/L Troponin I <0.012 (0.000-0.034) ng/mL Total Protein 6.7 (6.3-8.2) g/dL Albumin 4.1 (3.5-5.0) g/dL Urine Color Urine Appearance (Clear) Urine pH (5.0-8.0) Ur Specific [place] (1.001-1.035) Urine Protein (Negative) Urine Glucose (UA) (Negative) Urine Ketones (Negative) Urine Blood (Negative) Urine Nitrite (Negative) Urine Bilirubin (Negative) Urine Urobilinogen (<2.0) mg/dL Ur Leukocyte Esterase (Negative) Urine WBC (0-5) /hpf Ur Squamous Epith Cells (0-4) /hpf Hyaline Casts (0-2) /lpf Influenza Type A (PCR) (Not Detectd) Influenza Type B (PCR) (Not Detectd) RSV (PCR) (Not Detectd) SARS-CoV-2 (PCR) (Not Detectd) 11/13/21 Range/Units 10:13 WBC (3.8-10.6) k/uL RBC (3.80-5.40) m/uL Hgb (11.4-16.0) gm/dL Hct (34.0-46.0) % MCV (80.0-100.0) fL MCH (25.0-35.0) pg MCHC (31.0-37.0) g/dL RDW (11.5-15.5) % Plt Count (150-450) k/uL MPV Neutrophils % % Lymphocytes % % Monocytes % % Eosinophils % % Basophils % % Neutrophils # (1.3-7.7) k/uL Lymphocytes # (1.0-4.8) k/uL Monocytes # (0-1.0) k/uL Eosinophils # (0-0.7) k/uL Basophils # (0-0.2) k/uL Hypochromasia Anisocytosis Macrocytosis PT (9.0-12.0) sec INR (<1.2) APTT (22.0-30.0) sec Sodium (137-145) mmol/L Potassium (3.5-5.1) mmol/L Chloride (98-107) mmol/L Carbon Dioxide (22-30) mmol/L Anion Gap mmol/L BUN (7-17) mg/dL Creatinine (0.52-1.04) mg/dL Est GFR (CKD-EPI)AfAm (>60 ml/min/1.73 sqM) Est GFR (CKD-EPI)NonAf (>60 ml/min/1.73 sqM) Glucose (74-99) mg/dL Plasma Lactic Acid Ronny (0.7-2.0) mmol/L Calcium (8.4-10.2) mg/dL Total Bilirubin (0.2-1.3) mg/dL AST (14-36) U/L ALT (4-34) U/L Alkaline Phosphatase (38-126) U/L Troponin I (0.000-0.034) ng/mL Total Protein (6.3-8.2) g/dL Albumin (3.5-5.0) g/dL Urine Color Urine Appearance (Clear) Urine pH (5.0-8.0) Ur Specific [place] (1.001-1.035) Urine Protein (Negative) Urine Glucose (UA) (Negative) Urine Ketones (Negative) Urine Blood (Negative) Urine Nitrite (Negative) Urine Bilirubin (Negative) Urine Urobilinogen (<2.0) mg/dL Ur Leukocyte Esterase (Negative) Urine WBC (0-5) /hpf Ur Squamous Epith Cells (0-4) /hpf Hyaline Casts (0-2) /lpf Influenza Type A (PCR) Not Detected (Not Detectd) Influenza Type B (PCR) Not Detected (Not Detectd) RSV (PCR) Not Detected (Not Detectd) SARS-CoV-2 (PCR) Not Detected (Not Detectd) - Radiology Data Radiology results: report reviewed, image reviewed Chest x-ray: Dense mitral annular calcifications. Interstitial prominences unchanging could reflect bronchitis or chronic asthma. Slight asymmetric elevation left hemidiaphragm unchanged. Advanced degenerative changes left shoulder. Disposition Clinical Impression: Dehydration, Hyperkalemia Disposition: ADMITTED IP TO THIS HOSP Condition: Stable Is patient prescribed a controlled substance at d/c from ED?: No Referrals: Ja Stevenson DO [Primary Care Provider] - 1-2 days Time of Disposition: 12:55
[2021-11-13 12:25] LABS: Appearance,Urine Cloudy (Clear); Bilirubin,Urine Negative (Negative); Blood,Urine Negative (Negative); Color,Urine Light Yellow; Glucose,Urine (UA) Negative (Negative); Hyaline Casts,Urine 1 /lpf (0-2); Ketones,Urine Negative (Negative); Leukocyte Esterase,Urine Trace (Negative); Nitrite,Urine Negative (Negative); PH, Urine 5.5 (5.0-8.0); Protein,Urine Negative (Negative); Specific Gravity,Urine 1.008 (1.001-1.035); Squamous Epithelial Cell,Urine 1 /hpf (0-4); Urobilinogen,Urine <2.0 mg/dL (<2.0); WBC,Urine 1 /hpf (0-5)
[2021-11-13] MEDS ORDERED: NALOXONE 0.4 MG/ML 1 ML VIAL IV PRN (12:47)
[2021-11-13] MEDS: SODIUM CHLORIDE 0.9% 1,000 ML IV SCH ×2 (13:38→21:15)
[2021-11-13 17:28] LABS: Glucose,Whole Blood 110 mg/dL (75-99)
[2021-11-13] MEDS ORDERED: ACETAMINOPHEN TAB 325 MG TAB PO PRN (19:43)
[2021-11-13 20:57] LABS: Glucose,Whole Blood 223 mg/dL (75-99)
[2021-11-13] MEDS ORDERED: ATORVASTATIN 10 MG TAB PO SCH (21:00)
[2021-11-13] MEDS ORDERED: MEMANTINE 10 MG TAB PO SCH (21:00)
[2021-11-13] MEDS ORDERED: NON FORMULARY DRUG (Acetaminophen/Diphenhydramine [Tylenol Pm 500-25mg] 1 EACH Tablet) PO SCH (21:00)
[2021-11-13] MEDS ORDERED: LOSARTAN 25 MG TAB PO SCH (21:00)
[2021-11-13] MEDS: glipiZIDE 5 MG TAB PO SCH (21:17)
[2021-11-14] MEDS: SODIUM CHLORIDE 0.9% 1,000 ML IV SCH (05:57)
[2021-11-14 08:04] LABS: Glucose,Whole Blood 94 mg/dL (75-99)
[2021-11-14] MEDS: glipiZIDE 5 MG TAB PO SCH (08:41)
[2021-11-14] MEDS ORDERED: metFORMIN 500 MG TAB PO SCH (09:00)
[2021-11-14] MEDS ORDERED: MEMANTINE 5 MG TAB PO SCH (09:00)
[2021-11-14] MEDS ORDERED: AMIODARONE 200 MG TAB PO SCH (09:00)
[2021-11-14 10:23] VITALS: BP 144/73; PULSE 65; RESP 16; TEMP 98.6
[2021-11-14 11:47] LABS: Glucose,Whole Blood 140 mg/dL (75-99)
[2021-11-14 12:13] LABS: Anisocytosis Slight; Basophils % (A) 1 %; Eosinophils # (A) 0.1 k/uL (0-0.7); Eosinophils % (A) 2 %; HCT 36.6 % (34.0-46.0); Hypochromasia Marked; Lymphocytes # (A) 1.3 k/uL (1.0-4.8); Lymphocytes % (A) 26 %; MCH 29.5 pg (25.0-35.0); MCV 98.3 fL (80.0-100.0); Macrocytosis Slight; Mean Platelet Volume 8.7; Monocytes # (A) 0.4 k/uL (0-1.0); Monocytes % (A) 8 %; Neutrophils # (A) 3.1 k/uL (1.3-7.7); Neutrophils % (A) 62 %; Platelet Count 208 k/uL (150-450); RBC 3.72 m/uL (3.80-5.40); WBC 5.1 k/uL (3.8-10.6)
[2021-11-14 12:28] LABS: African American GFR (CKD) 44.8 (60.0-200.0); Anion Gap 17.3 mmol/L (10.00-18.00); BUN/Creat Ratio 25.68 Ratio (12.00-20.00); Blood Urea Nitrogen 32.1 mg/dL (9.0-27.0); Calcium 9.1 mg/dL (8.7-10.3); Carbon Dioxide 14.6 mmol/L (20.0-27.5); Non-African American GFR(CKD) 38.7 (60.0-200.0); Potassium 5.5 mmol/L (3.5-5.5)
[2021-11-14 13:13] LABS: African American GFR (CKD) 41 (>60 ml/min/1.73 sqM); Anion Gap 3 mmol/L; Blood Urea Nitrogen 33 mg/dL (7-17); Calcium 9.6 mg/dL (8.4-10.2); Carbon Dioxide 27 mmol/L (22-30); Chloride 107 mmol/L (98-107); Glucose 95 mg/dL (74-99); Non-African American GFR(CKD) 36 (>60 ml/min/1.73 sqM); Potassium 5.5 mmol/L (3.5-5.1); Sodium 137 mmol/L (137-145)
--- NOTE | 2021-11-14 15:57 | HP ---
HISTORY AND PHYSICAL This is a combined history and physical and discharge summary. I am covering for Dr. Stevenson. CHIEF COMPLAINTS: Weakness, shakiness and dehydration. HISTORY OF PRESENT ILLNESS: This 86-year-old woman with a past medical history of CHF, diabetes mellitus, history of TB in 195, history of pneumonia, being followed by Dr. Stevenson in the outpatient setting, was complaining of weakness and some shakiness yesterday. The patient came to [facility]. The patient was found to have dehydration. Lactic acid was elevated, but otherwise there was no evidence of any infection. Creatinine was 1.3 and glucose was 144. Patient is extremely keen on going home at this time. I recommend the patient to be discharged and follow up with Dr. Stevenson in the outpatient setting with the labs. COVID-19 was negative. Chest x-ray showed no acute abnormality either. There is no history of any fever, rigor or chills at this time. PAST MEDICAL HISTORY: History of CHF, diabetes mellitus, pneumonia, TB 1954. HOME MEDICATIONS: Tylenol, Tylenol PM., Glucotrol, Namenda, Mysoline, Cozaar, Cordarone and metformin. ALLERGIES: SULFA. FAMILY HISTORY: History of cancer in the family. SOCIAL HISTORY: Previous history of smoking. REVIEW OF SYSTEMS: ENT: Diminished hearing. Diminished vision. CARDIOVASCULAR SYSTEM: As mentioned earlier. RESPIRATORY SYSTEM: As mentioned earlier. GI: As mentioned earlier. : No dysuria. NERVOUS SYSTEM: No numbness, weakness. ALLERGY/IMMUNOLOGY: No asthma or hay fever. MUSCULOSKELETAL: As mentioned earlier. HEMATOLOGY/ONCOLOGY: No history of anemia. ENDOCRINE: As mentioned earlier. CONSTITUTIONAL: As mentioned earlier. DERMATOLOGY: Negative. RHEUMATOLOGY: Negative. PSYCHIATRY: As mentioned earlier. PHYSICAL EXAMINATION: Alert and oriented x3. Pulse 65, blood pressure 140/73, respirations 16, temperature 98.6, pulse ox 97% on room air. HEENT: Conjunctivae normal. NECK: No jugular venous distention. CARDIOVASCULAR: S1, S2 muffled. RESPIRATION: Breath sounds diminished at the bases. A few scattered rhonchi and crackles. ABDOMEN: Soft, nontender. LEGS: No edema. No swelling. NERVOUS SYSTEM: Higher functions as mentioned earlier. Moves all 4 limbs. No focal motor or sensory deficit. LYMPHATICS: No lymph node palpable in neck, axillae or groin. SKIN: No ulcer, rash, bleeding. JOINTS: No active deforming arthropathy. LABS: Labs at this time show WBC 5.2, hemoglobin 11, sodium 137, potassium 5.5. Creatinine is 1.33. ASSESSMENT: 1. Weakness, possible dehydration with mild acute renal failure. 2. Mild hyperkalemia. 3. Mild anemia. 4. History of congestive heart failure. 5. Diabetes mellitus, type 2. 6. History of pneumonia. 7. History of TB in 195. 8. History of nicotine dependence. 9. Obesity with body mass index of 30. 10.FULL CODE. RECOMMENDATIONS AND DISCUSSION: This 86-year-old woman presented with multiple complex medical issues. The patient is stable at this time. Patient is extremely keen on going home. I recommend that the patient follow up in the outpatient setting. Kleberg diet. Follow up with Dr. Stevenson. Discharge diet cardiac. Activity limited until followup. Follow up with Dr. Stevenson. DISCHARGE MEDICATIONS: 1. Cordarone 200 mg daily. 2. Cozaar 25 mg at bedtime. 3. Glucotrol 5 mg p.o. b.i.d. 4.mevacor 20 mg at bedtime. 5. Namenda 10 mg b.i.d. 6. Tylenol p.r.n. 7. Accu-Cheks before meals and at bedtime. Results to Dr. Stevenson. 8. Hold metformin for now. Follow-up labs with Dr. Stevenson. Once again, the patient will be discharged in stable condition with guarded prognosis. MMODL / IJN: [id number] / MTDD
== END 2021-11-14 13:29 | disposition home or self-care (01) ==
LOC: EC 09:41 → 6NMEDSUR 12:38
PROVIDERS: ADMIT Family Medicine; ATTEND Family Medicine
DX: R53.1 Weakness (principal); N17.9 Acute kidney failure, unspecified; E87.5 Hyperkalemia; D64.9 Anemia, unspecified; I50.9 Heart failure, unspecified; E11.9 Type 2 diabetes mellitus without complications; E86.0 Dehydration; Z20.822 Contact with and (suspected) exposure to COVID-19; E66.9 Obesity, unspecified; Z68.30 Body mass index [BMI] 30.0-30.9, adult; Z79.84 Long term (current) use of oral hypoglycemic drugs; Z79.899 Other long term (current) drug therapy; Z88.2 Allergy status to sulfonamides; Z86.11 Personal history of tuberculosis; Z90.2 Acquired absence of lung [part of]; Z90.710 Acquired absence of both cervix and uterus; Z87.01 Personal history of pneumonia (recurrent); Z87.891 Personal history of nicotine dependence; Z80.9 Family history of malignant neoplasm, unspecified; Z82.49 Family history of ischemic heart disease and other diseases of the circulatory system
CPT/HCPCS: 96360; 99285; 36415; 93005; 80053; 80048; 83605; 84484; 85025 ×2; 85610; 85730; 81001; 87636; 71046; G0378 ×2

== ENCOUNTER 2021-12-04 08:04 | Observation (INO) | payer MEDICARE ==
[2021-12-04] MEDS ORDERED: SODIUM CHLORIDE 0.9% 1,000 ML IV STA (08:41)
[2021-12-04] MEDS ORDERED: MECLIZINE 12.5 MG TAB PO STA (08:43)
[2021-12-04] MEDS ORDERED: ONDANSETRON 4 MG/2 ML VIAL IVP STA (08:43)
[2021-12-04] MEDS ORDERED: SODIUM CHLORIDE 0.9% 500 ML 500 ML IV STA (08:49)
--- NOTE | 2021-12-04 08:49 | ED ---
General Adult HPI - General Chief complaint: Dizziness Stated complaint: Vertigo Time Seen by Provider: 12/04/21 08:13 Source: patient, EMS Mode of arrival: EMS Limitations: no limitations - History of Present Illness Initial comments: 86-year-old female with a past medical history of heart failure, diabetes mellitus presents to the emergency room for a chief complaint of dizziness. Patient states she woke up this morning and felt like she describes this as maybe a spinning feeling. She denies feeling as if she was going to pass out. Patient states she could walk but carefully. Patient admits to nausea. Denies diarrhea. Denies headache. The dizziness is positional, worsens with movement and lying flat. Patient has no other complaints at this time including shortness of breath, chest pain, abdominal pain, nausea or vomiting, headache, o r visual changes. - Related Data Home Medications Medication Instructions Recorded Confirmed Lovastatin [Mevacor] 20 mg PO HS 05/01/21 12/04/21 Memantine [Namenda] 10 mg PO BID 05/01/21 12/04/21 Acetaminophen/Diphenhydramine 1 tab PO HS 08/03/21 12/04/21 [Tylenol PM 500-25mg] Amiodarone [Cordarone] 200 mg PO DAILY 08/03/21 12/04/21 Losartan Potassium [Cozaar] 25 mg PO HS 09/22/21 12/04/21 glipiZIDE [Glucotrol] 5 mg PO BID 11/13/21 12/04/21 Previous Rx's Medication Instructions Recorded Acetaminophen Tab [Tylenol] 650 mg PO Q6HR PRN tab 09/02/21 Allergies Allergy/AdvReac Type Severity Reaction Status Date / Time Sulfa (Sulfonamide Allergy Rash/Hives Verified 12/04/21 08:59 Antibiotics) Review of Systems ROS Statement: Those systems with pertinent positive or pertinent negative responses have been documented in the HPI. ROS Other: All systems not noted in ROS Statement are negative. 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 History of Any Multi-Drug Resistant Organisms: None Reported Past Surgical History: Hysterectomy Additional Past Surgical History / Comment(s): partial lung removal at [facility] Past Anesthesia/Blood Transfusion Reactions: No Reported Reaction Past Psychological History: No Psychological Hx Reported Smoking Status: Former smoker Past Alcohol Use History: None Reported Past Drug Use History: None Reported - Past Family History Mother Family Medical History: Cancer Father Family Medical History: Myocardial Infarction ([place]) General Exam Limitations: no limitations, language barrier General appearance: alert, in no apparent distress Head exam: Present: atraumatic Eye exam: Present: normal appearance, PERRL, EOMI. Absent: scleral icterus, conjunctival injection ENT exam: Present: normal exam, mucous membranes moist Neck exam: Present: normal inspection, full ROM. Absent: tenderness Respiratory exam: Present: normal lung sounds bilaterally. Absent: respiratory distress, wheezes Cardiovascular Exam: Present: regular rate, normal rhythm, normal heart sounds GI/Abdominal exam: Present: soft, normal bowel sounds. Absent: distended, tenderness Neurological exam: Present: alert, oriented X3, other (GCS 15) Expanded Patient oriented to: Present: person, place, time Speech: Present: fluid speech Cranial nerves: EOM's Intact: Normal, Nystagmus: Normal, Facial Sensation: Normal Cerebellar function: Finger to Nose: Normal Upper motor neuron: Pronator Drift: Normal Sensory exam: Upper Extremity Light Touch: Normal, Upper Extremity Pin Prick: Normal, Lower Extremity Light Touch: Normal, Lower Extremity Pin Prick: Normal Motor strength exam: RUE: 5, LUE: 5, RLE: 5, LLE: 5 Eye Response: (4) open spontaneously Motor Response: (6) obeys commands Verbal Response: (5) oriented Lauren Total: 15 Course Vital Signs 12/04/21 12/04/21 12/04/21 08:12 09:36 10:54 Temperature 97.7 F Pulse Rate 67 57 L 60 Respiratory 18 18 17 Rate Blood Pressure 187/71 170/72 174/74 O2 Sat by Pulse 98 97 96 Oximetry 12/04/21 12:19 Temperature Pulse Rate 60 Respiratory 18 Rate Blood Pressure 175/89 O2 Sat by Pulse 100 Oximetry EKG Findings - EKG Comments: EKG Findings:: Normal sinus rhythm, ventricular rate 60, UT interval 146, QTc 468 Medical Decision Making - Medical Decision Making Vitals are stable. Patient is well-appearing. NIH is 0. No focal neurologic deficits. She does however have dizziness and nausea. Laboratory evaluation was obtained which was unremarkable. Patient has known chronic kidney disease. EKG. Patient was given several medications for dizziness, did not have much improvement in symptoms in the dizziness is causing difficulty ambulating. Therefore CTA was obtained. This did show severe 70% focal stenosis at the proximal left ICA. 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 Case is discussed with Dr. Quach, recommends starting pacer on aspirin and Plavix and Lipitor. Recommends consultation neurology for MRI. discussed with Dr Stevenson, does accept admission. - Lab Data Result diagrams: 12/04/21 08:49 12/04/21 08:49 Lab Results 12/04/21 12/04/21 12/04/21 Range/Units 08:49 08:49 08:49 WBC 3.9 (3.8-10.6) k/uL RBC 4.26 (3.80-5.40) m/uL Hgb 13.0 (11.4-16.0) gm/dL Hct 41.8 (34.0-46.0) % MCV 98.1 (80.0-100.0) fL MCH 30.4 (25.0-35.0) pg MCHC 31.0 (31.0-37.0) g/dL RDW 17.3 H (11.5-15.5) % Plt Count 150 (150-450) k/uL MPV 8.7 Neutrophils % 63 % Lymphocytes % 27 % Monocytes % 6 % Eosinophils % 2 % Basophils % 1 % Neutrophils # 2.5 (1.3-7.7) k/uL Lymphocytes # 1.0 (1.0-4.8) k/uL Monocytes # 0.2 (0-1.0) k/uL Eosinophils # 0.1 (0-0.7) k/uL Basophils # 0.0 (0-0.2) k/uL Hypochromasia Moderate Anisocytosis Slight Macrocytosis Slight Sodium 140 (137-145) mmol/L Potassium 5.2 H (3.5-5.1) mmol/L Chloride 109 H (98-107) mmol/L Carbon Dioxide 25 (22-30) mmol/L Anion Gap 6 mmol/L BUN 30 H (7-17) mg/dL Creatinine 1.18 H (0.52-1.04) mg/dL Est GFR (CKD-EPI)AfAm 48 (>60 ml/min/1.73 sqM) Est GFR (CKD-EPI)NonAf 42 (>60 ml/min/1.73 sqM) Glucose 117 H (74-99) mg/dL Calcium 9.2 (8.4-10.2) mg/dL Magnesium 1.6 (1.6-2.3) mg/dL Total Bilirubin 0.5 (0.2-1.3) mg/dL AST 21 (14-36) U/L ALT 13 (4-34) U/L Alkaline Phosphatase 63 (38-126) U/L Troponin I (0.000-0.034) ng/mL Total Protein 6.7 (6.3-8.2) g/dL Albumin 4.0 (3.5-5.0) g/dL Urine Color Light Yellow Urine Appearance Clear (Clear) Urine pH 7.0 (5.0-8.0) Ur Specific [place] 1.010 (1.001-1.035) Urine Protein Negative (Negative) Urine Glucose (UA) Negative (Negative) Urine Ketones Negative (Negative) Urine Blood Negative (Negative) Urine Nitrite Negative (Negative) Urine Bilirubin Negative (Negative) Urine Urobilinogen <2.0 (<2.0) mg/dL Ur Leukocyte Esterase Moderate H (Negative) Urine RBC <1 (0-5) /hpf Urine WBC 4 (0-5) /hpf Ur Squamous Epith Cells <1 (0-4) /hpf 12/04/21 Range/Units 08:49 WBC (3.8-10.6) k/uL RBC (3.80-5.40) m/uL Hgb (11.4-16.0) gm/dL Hct (34.0-46.0) % MCV (80.0-100.0) fL MCH (25.0-35.0) pg MCHC (31.0-37.0) g/dL RDW (11.5-15.5) % Plt Count (150-450) k/uL MPV Neutrophils % % Lymphocytes % % Monocytes % % Eosinophils % % Basophils % % Neutrophils # (1.3-7.7) k/uL Lymphocytes # (1.0-4.8) k/uL Monocytes # (0-1.0) k/uL Eosinophils # (0-0.7) k/uL Basophils # (0-0.2) k/uL Hypochromasia Anisocytosis Macrocytosis Sodium (137-145) mmol/L Potassium (3.5-5.1) mmol/L Chloride (98-107) mmol/L Carbon Dioxide (22-30) mmol/L Anion Gap mmol/L BUN (7-17) mg/dL Creatinine (0.52-1.04) mg/dL Est GFR (CKD-EPI)AfAm (>60 ml/min/1.73 sqM) Est GFR (CKD-EPI)NonAf (>60 ml/min/1.73 sqM) Glucose (74-99) mg/dL Calcium (8.4-10.2) mg/dL Magnesium (1.6-2.3) mg/dL Total Bilirubin (0.2-1.3) mg/dL AST (14-36) U/L ALT (4-34) U/L Alkaline Phosphatase (38-126) U/L Troponin I 0.014 (0.000-0.034) ng/mL Total Protein (6.3-8.2) g/dL Albumin (3.5-5.0) g/dL Urine Color Urine Appearance (Clear) Urine pH (5.0-8.0) Ur Specific [place] (1.001-1.035) Urine Protein (Negative) Urine Glucose (UA) (Negative) Urine Ketones (Negative) Urine Blood (Negative) Urine Nitrite (Negative) Urine Bilirubin (Negative) Urine Urobilinogen (<2.0) mg/dL Ur Leukocyte Esterase (Negative) Urine RBC (0-5) /hpf Urine WBC (0-5) /hpf Ur Squamous Epith Cells (0-4) /hpf Disposition Clinical Impression: Dizziness, Carotid stenosis, left, Stenosis of right vertebral artery, Hyperkalemia, CKD (chronic kidney disease) Disposition: ADMITTED IP TO THIS HOSP Is patient prescribed a controlled substance at d/c from ED?: No Referrals: Ja Stevenson DO [Primary Care Provider] - 1-2 days Time of Disposition: 12:27
[2021-12-04 09:05] LABS: Anisocytosis Slight; Basophils % (A) 1 %; Eosinophils % (A) 2 %; HCT 41.8 % (34.0-46.0); Hypochromasia Moderate; Lymphocytes % (A) 27 %; MCH 30.4 pg (25.0-35.0); MCV 98.1 fL (80.0-100.0); Macrocytosis Slight; Mean Platelet Volume 8.7; Monocytes % (A) 6 %; Neutrophils % (A) 63 %; Platelet Count 150 k/uL (150-450); RBC 4.26 m/uL (3.80-5.40); RDW 17.3 % (11.5-15.5); WBC 3.9 k/uL (3.8-10.6)
[2021-12-04 09:06] LABS: Eosinophils # (A) 0.1 k/uL (0-0.7); Monocytes # (A) 0.2 k/uL (0-1.0); Neutrophils # (A) 2.5 k/uL (1.3-7.7)
[2021-12-04 09:17] LABS: Calcium 9.2 mg/dL (8.4-10.2); Magnesium 1.6 mg/dL (1.6-2.3); Potassium 5.2 mmol/L (3.5-5.1); Total Bilirubin 0.5 mg/dL (0.2-1.3); Total Protein 6.7 g/dL (6.3-8.2)
--- NOTE | 2021-12-04 09:34 | CT ---
EXAMINATION TYPE: CT brain wo con DATE OF EXAM: 12/04/2021 COMPARISON: 05/01/2021 HISTORY: 86-year-old female dizziness, vertigo TECHNIQUE: Examination was done in axial plane without intravenous contrast. Coronal and sagittal r econstructions performed. CT DLP: 1100.4 mGycm Automated exposure control for dose reduction was used. FINDINGS: There is no evidence of acute intracranial hemorrhage, acute ischemic changes, mass, mass-effect, or extra-axial fluid collection. There is no effacement of cerebral sulci or basal subarachnoid cister ns. There is no hydrocephalus. There is no midline shift. Mcdonnell-white matter distinction is preserv ed. Mild age-related cerebral cortical volume loss. Mild patchy white matter hypodensities in both cerebr al hemispheres. Normal variation of hyperostosis frontalis interna. Paranasal sinuses well pneumatized. Orbits and globes appear intact. Extensive frothy opacification throughout the right mastoid air cells. IMPRESSION: 1. Mild atrophy and mild burden of chronic small vessel ischemic disease. No acute intracranial abnor mality seen. 2. Extensive frothy fluid throughout the right mastoid air cells. Correlate for mastoiditis.
[2021-12-04] MEDS ORDERED: METOCLOPRAMIDE 5 MG/ML 2 ML VIAL IVP STA (09:38)
--- NOTE | 2021-12-04 09:45 | XR ---
EXAMINATION TYPE: XR chest 2V DATE OF EXAM: 12/04/2021 COMPARISON: 11/13/2021 HISTORY: Shortness of breath TECHNIQUE: Frontal and lateral views of the chest are obtained. FINDINGS: Scattered senescent parenchymal changes noted. Hyperinflation compatible with COPD. No evidence for infiltrate. No evidence for atelectasis. Heart size is stable. Mediastinal structures are stable and grossly unremarkable. No evidence for hilar prominence. Degenerative changes dorsal spine. IMPRESSION: 1. No evidence for acute pulmonary disease.
[2021-12-04] MEDS ORDERED: DIAZEPAM 5 MG/ML 2 ML INJ IVP STA (10:16)
[2021-12-04 10:34] LABS: Appearance,Urine Clear (Clear); Bilirubin,Urine Negative (Negative); Blood,Urine Negative (Negative); Color,Urine Light Yellow; Glucose,Urine (UA) Negative (Negative); Ketones,Urine Negative (Negative); Leukocyte Esterase,Urine Moderate (Negative); Nitrite,Urine Negative (Negative); Protein,Urine Negative (Negative); RBC,Urine <1 /hpf (0-5); Squamous Epithelial Cell,Urine <1 /hpf (0-4); Urobilinogen,Urine <2.0 mg/dL (<2.0); WBC,Urine 4 /hpf (0-5)
--- NOTE | 2021-12-04 11:47 | CT ---
EXAMINATION TYPE: CT angio head neck DATE OF EXAM: 12/04/2021 COMPARISON: CT brain same day HISTORY: 86-year-old female dizziness, vertigo TECHNIQUE: Contiguous axial scanning of the head and neck performed with IV Contrast, patient injecte d with 65 mL of Isovue 370. Coronal/sagittal MIP reconstructions performed. 3-D reconstructions gener ated on a dedicated independent workstation. CT DLP: 438.9 mGycm Automated exposure control for dose reduction was used. FINDINGS: NECK: Multinodular thyroid gland. Further thyroid ultrasound evaluation can be performed to assess for any underlying suspicious lesion. Possible enlarged lower right paratracheal lymph node measuring up to 2.6 x 1.7 cm which appears new from 05/01/2021. Reticular changes, likely some underlying interstitial scarring. Left apical pleural parenchymal scar ring is unchanged. Loose bodies about the shoulder suggesting underlying left shoulder arthropathy incompletely visualiz ed. Moderate atherosclerotic calcifications aortic arch with bovine configuration. Moderate focal narrowing at the proximal right subclavian artery. Possible severe narrowing at the or igin of the right vertebral artery which is nondominant and diminutive. Left vertebral artery is dom inant and patent. Right common carotid artery is patent. Moderate atherosclerotic calcifications carotid bulb and proximal right ICA with mild, just under 50% proximal right ICA stenosis by NASCET criteria. Left common carotid artery is patent. Moderate atherosclerotic calcifications at the left carotid bulb and proximal left ICA. There appears to be a severe, greater than 70% narrowing proximal left ICA just beyond the level of the carotid bu lb, thin cut axial image 361 (by NASCET criteria). HEAD: Hypoplastic right vertebral artery. Severe focal stenosis proximal V4 segment right vertebral artery. Loss of visualization of the mid right vertebral artery. Left vertebral artery is patent. The basilar artery is patent as is the remainder of the posterior circulation. Mild atherosclerotic calcification and narrowing within the bilateral carotid siphons. Otherwise, no significant stenosis of the ICAs. Remainder of the anterior circulation is patent. There is small 3 mm aneurysms VS infundibula projecting posteriorly and inferiorly from the distal, s upraclinoid ICAs, refer to been cut axial images 133 and 135. IMPRESSION: NECK: 1. Moderate atherosclerotic calcifications of the bilateral carotid bifurcations. This results in sev ere, greater than 70% focal stenosis proximal left ICA just beyond the carotid bulb. On the right, mi ld, just under 50% proximal ICA stenosis. 2. Diminutive/hypoplastic right vertebral artery with possible severe stenosis at its origin. Left ve rtebral artery patent. 3. Moderate focal stenosis proximal right subclavian artery. 4. Multinodular thyroid gland. Thyroid ultrasound can assess for any underlying nodules that would me et criteria for FNA. 5. Possible partially visualized enlarged low right paratracheal lymph node in the mediastinum measur ing 2.6 x 1.7 cm, new from 05/01/2021. Appropriate CT chest evaluation and clinical follow-up recommend ed to exclude a neoplastic etiology. HEAD: 6. Hypoplastic right vertebral artery. There is a severe focal stenosis proximal V4 segment and suspe cted second severe stenosis/occlusion at the mid V4 right vertebral artery. 7. Mild atherosclerotic narrowing throughout the bilateral carotid siphons. No significant ICA stenos is or occlusion. 8. 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 Appropriate surveillance scan be performed.
[2021-12-04] MEDS ORDERED: ASPIRIN 325 MG TAB PO STA (12:10)
[2021-12-04] MEDS ORDERED: ATORVASTATIN 40 MG TAB PO STA (12:11)
[2021-12-04] MEDS ORDERED: CLOPIDOGREL 75 MG TAB PO STA (12:12)
[2021-12-04] MEDS ORDERED: ONDANSETRON 4 MG/2 ML VIAL IVP PRN (12:31)
[2021-12-04] MEDS ORDERED: NALOXONE 0.4 MG/ML 1 ML VIAL IV PRN (12:31)
[2021-12-04] MEDS ORDERED: ACETAMINOPHEN TAB 325 MG TAB PO PRN (12:35)
--- NOTE | 2021-12-04 13:56 | US ---
EXAMINATION TYPE: US carotid duplex BILAT DATE OF EXAM: 12/04/2021 COMPARISON: Same day CTA CLINICAL HISTORY: carotid stenosis per CTA. Dizziness EXAM MEASUREMENTS: RIGHT: Peak Systolic Velocity (PSV) cm/sec ----- Right CCA: 53.3 ----- Right ICA: 116.1 ----- Right ECA: 69.7 ICA/CCA ratio: 2.2 RIGHT: End Diastole cm/sec ----- Right CCA: 11.3 ----- Right ICA: 19.2 ----- Right ECA: 0.0 LEFT: Peak Systolic Velocity (PSV) cm/sec ----- Left CCA: 54.9 ----- Left ICA: 127.9 ----- Left ECA: 65.8 ICA/CCA ratio: 2.3 LEFT: End Diastole cm/sec ----- Left CCA: 11.3 ----- Left ICA: 29.4 ----- Left ECA: 0.0 VERTEBRALS (direction of flow): Right Vertebral: Unable to visualize Left Vertebral: Antegrade Rhythm: Normal Heterogeneous plaque bilaterally with slightly elevated velocities bilaterally Impression: 1. Calcified plaque in the right carotid bulb resulting in a borderline mild to moderate stenosis of approximately 50%. 2. Calcified plaque left carotid bulb moderate 50-69% stenosis. Criteria for Assigning % of Stenosis / Diameter reduction (Estimation based on the indirect measurements of the internal carotid artery velocities (ICA PSV). 1. Normal (no stenosis)=ICA PSV < 125 cm/s: ratio < 2.0: ICA EDV<40 cm/s. 2. Less than 50% stenosis=ICA PSV < 125 cm/s: ratio < 2.0: ICA EDV<40 cm/s. 3. 50 to 69% stenosis=ICA PSV of 125 to 230 cm/s: ration 2.0 ? 4.0: ICA EDV 40-100 cm/s. 4. Greater than 70% stenosis to near occlusion= ICA PSV > 230 cm/s: ratio > 4.0: ICA EDV > 100 cm/s. 5. Near occlusion= ICA PSV velocities may be low or undetectable: variable ratio and ICA EDV. 6. Total occlusion=unable to detect flow.
--- NOTE | 2021-12-04 14:48 | P.CNNES ---
History of Present Illness Consult date: 12/04/21 Requesting physician: Martell Martinez Reason for Consult: dizziness, stenosis left iCA, right vertebral artery History of Present Illness: This is a 86-year-old woman with medical history of diabetes mellitus, heart failure who presented to the emergency department because of dizziness. She said she wok-up early in the morning today and noticed that she feel dizzy and felt she is dizzy and it was to position and relieved with rest. She has nausea and some vomiting. Last normal state is last night prior to midnight per patient. She denies visual disturbance, ringing of the ears, hearing loss, focal weakness, numbness, difficulty swallowing. She feels whole body is weak. She resides by herself and uses a cane and walker. She denies tobacco use, illicit drug use. Patient is on home medication of the lovastatin 20 mg daily at bedtime, memantine 10 mg 1 tablet twice a day, glipizide, losartan, amiodarone 200 mg daily, acetaminophen. Some other workup in the hospital consisted of: Initial vital signs was blood pressure of 187/71, heart rate of 67, respiratory of 18, temperature of 97.7 Fahrenheit oral and pulse ox of 98% room air. CBC with differential seems unremarkable Chemistry panel is creatinine is 1.18, potassium is 5.2, serum glucoses 117. Otherwise rest of chemistry panel is unremarkable. Calcium is 9.2, magnesium is 1.6. Hernandez virus PCR was not detected. CT of the head is reported as mild atrophy and mild version of chronic small vessel ischemic disease. No acute intracranial abnormality seen. Extensive frothy fluid throughout the right mastoid air cells. Correlate for mastoiditis. I personally reviewed the CT of the head and there is no acute or subacute ischemia there is no truncal hemorrhage CT angiography of the head is reported as hypoplastic right vertebral artery. There is severe focal stenosis proximal V4 segment and suspected the second severe stenosis/occlusion at the mid V4 right vertebral artery. Mild office carotid narrowing throughout the bilateral carotid siphons. No significant ICA stenosis or occlusion. Small 3 mm saccular aneurysm versus infundibula projecting posteriorly from the supraclinoid distal bilateral ICA. CT angiography of the neck was reported as moderate atherosclerotic calcification of the bilateral carotid bifurcation. The result is severe greater than 70% focal stenosis proximal left ICA just beyond the carotid bulb. On the right, mild just under 50% proximal ICA stenosis. At diminutive/hypoplastic right vertebral artery with possible severe stenosis in it at its origin. Left vertebral artery patent. Moderate focal stenosis proximal right subclavian artery. Multinodular thyroid gland. Possible partially visualized large low right. Tracheal lymph node in the mediastinum measuring 2.6 x 1.7 cm new from 05/01/2021. Review of Systems Review of system: The 12 point system was reviewed and apparent positive and negative per HPI. 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, heart murmur History of Any Multi-Drug Resistant Organisms: None Reported Past Surgical History: Hysterectomy Additional Past Surgical History / Comment(s): partial lung removal at [facility] Past Anesthesia/Blood Transfusion Reactions: No Reported Reaction Past Psychological History: No Psychological Hx Reported Smoking Status: Former smoker Past Alcohol Use History: None Reported Past Drug Use History: None Reported - Past Family History Mother Family Medical History: Cancer Father Family Medical History: Myocardial Infarction ([place]) Medications and Allergies Home Medications Medication Instructions Recorded Confirmed Type Lovastatin [Mevacor] 20 mg PO HS 05/01/21 12/04/21 History Memantine [Namenda] 10 mg PO BID 05/01/21 12/04/21 History Acetaminophen/Diphenhydramine 1 tab PO HS 08/03/21 12/04/21 History [Tylenol PM 500-25mg] Amiodarone [Cordarone] 200 mg PO DAILY 08/03/21 12/04/21 History Acetaminophen Tab [Tylenol] 650 mg PO Q6HR PRN tab 09/02/21 12/04/21 Rx Losartan Potassium [Cozaar] 25 mg PO HS 09/22/21 12/04/21 History glipiZIDE [Glucotrol] 5 mg PO BID 11/13/21 12/04/21 History Allergies Allergy/AdvReac Type Severity Reaction Status Date / Time Sulfa (Sulfonamide Allergy Rash/Hives Verified 12/04/21 08:59 Antibiotics) Physical Examination - Vital Signs Vital Signs: Vital Signs Temp Pulse Resp BP Pulse Ox 12/04/21 12:19 60 18 175/89 100 12/04/21 10:54 60 17 174/74 96 12/04/21 09:36 57 L 18 170/72 97 12/04/21 08:12 97.7 F 67 18 187/71 98 Intake and Output 12/03/21 12/04/21 12/04/21 22:59 06:59 14:59 Other: Weight 83.915 kg GENERAL: The patient is lying in bed and is not in acute distress. CHEST: The heart rate is regular rate rhythm. No murmurs to auscultation. LUNG: Clear to auscultation bilaterally no wheezing noted throughout. Not labored breathing. ABDOMEN/GI: Bowel sounds present in all 4 quadrants. No tenderness to palpation throughout. NEUROLOGICAL: Higher mental function: The patient is awake, alert, oriented to self, place and time. Patient is following commands. No aphasia and no neglect. Cranial nerves: The pupils are round, equal and reactive to light. Visual fi elds are full to confrontation throughout. Extraocular movement is intact no nystagmus is noted. Facial sensation is normal to touch throughout. The facial strength is normal throughout. Hearing is mildly to moderately decreased bilaterally to hand rub. Tongue is midline and moved [id number] without any difficulty. No dysarthria is noted. Shoulder shrug is normal bilaterally. Motor: The strength is 5 over 5 throughout. Normal tone and bulk. Cerebellum: Normal finger to nose heel to hassan bilaterally. Sensation: Sensation is normal to touch throughout. Reflexes (right/left): 2+ throughout except ankles are 1+ bilaterally. Plantars are mute bilaterally. Results - Laboratory Findings CBC and BMP: 12/04/21 08:49 12/04/21 08:49 Abnormal Lab Findings: Abnormal Labs 12/04/21 12/04/21 12/04/21 08:49 08:49 08:49 RDW 17.3 H Potassium 5.2 H Chloride 109 H BUN 30 H Creatinine 1.18 H Glucose 117 H Ur Leukocyte Esterase Moderate H Assessment and Plan Assessment: Acute Vertigo with nausea and vomiting seems peripheral (noticed it with positional and relieved with rest. This seems like benign positional vertigo) Left ICA stenosis more than 70% per CTA while the right is less than 50%. Acute mild hyperkalemia Diabetes mellitus Heart failure History of TB pneumonia in 1994 Plan: * Patient wants to hold off on MRI Brain and if her dizziness does not resolve within 2 days will consider it. * Currently the patient is on meclizine 25 mg 1 tablet 3 times a day, was given Reglan, Zofran started by ED team. * I ordered carotid duplex because of reported left ICA stenosis. * I consulted the vascular surgery team * Regarding the reported the severe focal stenosis over the V4 segment, the questionable small 3 mm saccular aneurysm versus infundibula projecting pos teriorly from the supraclinoid distal bilateral ICA. I recommend patient to follow-up with interventional neurology team for further work-up (Dr. Quach in [facility] [phone]). * Patient was started on aspirin 325 and Plavix 75 mg daily by ED team. Patient was also given a loading dose of Lipitor 40 mg once then 10 mg daily at bedtime. * PT, OT is consulted * Every 4 hour neuro checks * We'll defer the rest of medical management to primary team. The plan is discussed with the patient. Thank you consultation. Tyler Cordero M.D. Neuro-hospitalist Time with Patient: Greater than 30
--- NOTE | 2021-12-04 15:22 | P.GSCN ---
History of Present Illness Consult date: 12/04/21 Reason for Consult: carotid stenosis Requesting physician: Tyler Cordero History of present illness: This is a 86-year-old pleasant female who presented to emergency department with complaints of severe dizziness this morning. She states that the dizziness began this morning and it felt like the room was spinning about this occurs mostly with positional changes and turning her head, sitting up or lying down. Patient denies any fall but states that she almost did. She denies any other focal deficits such as visual changes, difficulty with her speech, extremity weakness, or facial drooping. She has no previous history of a stroke. She has a history of hypertension, heart failure, and pneumonia. She is a former smoker who quit many years ago. She denies any previous history of stroke and no history of carotid stenosis. She had a CT of the brain that showed no acute changes. CT angiogram of the head and neck did show approximate 70% ICA stenosis on the left and 50% on the right. Vascular surgery was consulted for carotid stenosis. Patient currently denies any shortness of breath, chest pain, dizziness is only if she is moving or turning her head. No focal deficits. Review of Systems 14 point review of systems was completed all pertinent positives and negatives a s stated in the HPI 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, heart murmur History of Any Multi-Drug Resistant Organisms: None Reported Past Surgical History: Hysterectomy Additional Past Surgical History / Comment(s): partial lung removal at [facility] Past Anesthesia/Blood Transfusion Reactions: No Reported Reaction Past Psychological History: No Psychological Hx Reported Smoking Status: Former smoker Past Alcohol Use History: None Reported Past Drug Use History: None Reported - Past Family History Mother Family Medical History: Cancer Father Family Medical History: Myocardial Infarction ([place]) Medications and Allergies Home Medications Medication Instructions Recorded Confirmed Type Lovastatin [Mevacor] 20 mg PO HS 05/01/21 12/04/21 History Memantine [Namenda] 10 mg PO BID 05/01/21 12/04/21 History Acetaminophen/Diphenhydramine 1 tab PO HS 08/03/21 12/04/21 History [Tylenol PM 500-25mg] Amiodarone [Cordarone] 200 mg PO DAILY 08/03/21 12/04/21 History Acetaminophen Tab [Tylenol] 650 mg PO Q6HR PRN tab 09/02/21 12/04/21 Rx Losartan Potassium [Cozaar] 25 mg PO HS 09/22/21 12/04/21 History glipiZIDE [Glucotrol] 5 mg PO BID 11/13/21 12/04/21 History Allergies Allergy/AdvReac Type Severity Reaction Status Date / Time Sulfa (Sulfonamide Allergy Rash/Hives Verified 12/04/21 08:59 Antibiotics) Surgical - Exam Vital Signs Temp Pulse Resp BP Pulse Ox 97.7 F 67 18 187/71 98 12/04/21 08:12 12/04/21 08:12 12/04/21 08:12 12/04/21 08:12 12/04/21 08:12 General appearance: The patient is alert, oriented, appears in no acute di stress. HET: Head is normocephalic and atraumatic. Pupils are equal and reactive. Neck: Supple without lymphadenopathy. Trachea midline. Heart: S1 S2. Regular rate and rhythm. Lungs: Clear to auscultation bilaterally. Abdomen: Soft, nontender, nondistended. Extremities: Normal skin color and turgor. No cyanosis, rash, ulceration, clubbing, or edema. Radial and pedal pulses are 2/4 bilaterally. Neurological: No focal deficits. Alert and oriented 3. Strength and sensation are grossly intact. Results - Labs 12/04/21 08:49 12/04/21 08:49 Abnormal Lab Results - Last 24 Hours (Table) 12/04/21 12/04/21 12/04/21 Range/Units 08:49 08:49 08:49 RDW 17.3 H (11.5-15.5) % Potassium 5.2 H (3.5-5.1) mmol/L Chloride 109 H (98-107) mmol/L BUN 30 H (7-17) mg/dL Creatinine 1.18 H (0.52-1.04) mg/dL Glucose 117 H (74-99) mg/dL Ur Leukocyte Esterase Moderate H (Negative) Diabetes panel 12/04/21 Range/Units 08:49 Sodium 140 (137-145) mmol/L Potassium 5.2 H (3.5-5.1) mmol/L Chloride 109 H (98-107) mmol/L Carbon Dioxide 25 (22-30) mmol/L BUN 30 H (7-17) mg/dL Creatinine 1.18 H (0.52-1.04) mg/dL Glucose 117 H (74-99) mg/dL Calcium 9.2 (8.4-10.2) mg/dL AST 21 (14-36) U/L ALT 13 (4-34) U/L Alkaline Phosphatase 63 (38-126) U/L Total Protein 6.7 (6.3-8.2) g/dL Albumin 4.0 (3.5-5.0) g/dL Calcium panel 12/04/21 Range/Units 08:49 Calcium 9.2 (8.4-10.2) mg/dL Albumin 4.0 (3.5-5.0) g/dL Pituitary panel 12/04/21 Range/Units 08:49 Sodium 140 (137-145) mmol/L Potassium 5.2 H (3.5-5.1) mmol/L Chloride 109 H (98-107) mmol/L Carbon Dioxide 25 (22-30) mmol/L BUN 30 H (7-17) mg/dL Creatinine 1.18 H (0.52-1.04) mg/dL Glucose 117 H (74-99) mg/dL Calcium 9.2 (8.4-10.2) mg/dL Adrenal panel 12/04/21 Range/Units 08:49 Sodium 140 (137-145) mmol/L Potassium 5.2 H (3.5-5.1) mmol/L Chloride 109 H (98-107) mmol/L Carbon Dioxide 25 (22-30) mmol/L BUN 30 H (7-17) mg/dL Creatinine 1.18 H (0.52-1.04) mg/dL Glucose 117 H (74-99) mg/dL Calcium 9.2 (8.4-10.2) mg/dL Total Bilirubin 0.5 (0.2-1.3) mg/dL AST 21 (14-36) U/L ALT 13 (4-34) U/L Alkaline Phosphatase 63 (38-126) U/L Total Protein 6.7 (6.3-8.2) g/dL Albumin 4.0 (3.5-5.0) g/dL - Imaging Comments: Brain CT: Mild atrophy and mild burden of chronic small vessel ischemic disease. No acute intracranial abnormality. Extensive frothy fluid throughout the right mastoid air cells correlate for mastoiditis. CTA head and neck: Neck moderate arthrosclerotic calcification of bilateral carotid bifurcations. Results in severe, greater than 70% focal stenosis proximal left ICA carotid bulb on the right just under 50% proximal ICA stenosis. Inattentive hypoplastic right vertebral artery with possible severe stenosis at its origin. Left vertebral artery patent. Moderate focal stenosis proximal right subclavian artery. Carotid ultrasound: Right ICA PSV 116, ICA/CCA ratio 2.2 left ICA PSV 127.9 ICA/CCA ratio 2.3. Impression states calcified plaque in the right carotid bulb resulting in a borderline mild to moderate stenosis of approximately 50% with calcified plaque left carotid bulb moderate 50-69% stenosis. Assessment and Plan Assessment: 1. Dizziness, positional 2. Asymptomatic bilateral internal carotid stenosis. Left greater than right, left with excellently 50-69% stenosis per carotid duplex and 70% or greater per CT angiogram. Right approximately 50% ICA stenosis 3. Extensive frothy fluid throughout the right mastoid air cells, correlate for mastoiditis per CT brain 4. Former smoker 5. History hypertension Plan: Patient has asymptomatic ICA stenosis greater on the left. There is no indication for any vascular surgical intervention acutely. Patient to follow-up with Dr. Watkins in 1-2 weeks for further evaluation. Agree with statin and Plavix. Await further recommendations from neurology. Thank you for this consultation and allowing us take part in the plan of care of your patient during her hospital stay. The impression and plan of care has been dictated as directed. Dr. Watkins I performed a history and examination of this patient, discussed the same with the dictator. I agree with the dictator's note ,documented as a scribe. Any additional findings or plans will be noted.
[2021-12-04] MEDS: MECLIZINE 25 MG TAB PO SCH ×2 (17:31→20:23)
[2021-12-04] MEDS: SODIUM CHLORIDE 0.9% 1,000 ML IV SCH (19:18)
[2021-12-04 20:45] LABS: Glucose,Whole Blood 185 mg/dL (75-99)
[2021-12-04] MEDS ORDERED: LOSARTAN 25 MG TAB PO SCH (21:00)
[2021-12-04] MEDS: glipiZIDE 5 MG TAB PO SCH (21:59)
[2021-12-05 07:26] LABS: Glucose,Whole Blood 59 mg/dL (75-99)
[2021-12-05 07:50] VITALS: RESP 20
[2021-12-05 07:58] LABS: Glucose,Whole Blood 77 mg/dL (75-99)
[2021-12-05] MEDS ORDERED: CLOPIDOGREL 75 MG TAB PO SCH (09:00)
[2021-12-05] MEDS ORDERED: ASPIRIN 325 MG TAB PO SCH (09:00)
[2021-12-05] MEDS ORDERED: AMIODARONE 200 MG TAB PO SCH (09:00)
[2021-12-05] MEDS: MECLIZINE 25 MG TAB PO SCH (09:12)
[2021-12-05] MEDS: glipiZIDE 5 MG TAB PO SCH (09:12)
--- NOTE | 2021-12-05 10:16 | P.DS ---
Providers Date of admission: 12/04/21 12:31 Attending physician: Ja Stevenson Consults: 12/04/21 12:32 Consult Physician Routine Consulting Provider: Tyler Cordero Consult Reason/Comments: dizziness, stenosis L ICA, R vertebral artery Do you want consulting provider notified?: Yes 12/04/21 13:17 Consult Physician Routine Consulting Provider: Floyd Watkins Consult Reason/Comments: carotid stenosis Do you want consulting provider notified?: Yes Primary care physician: Ja Stevenson [facility] Course: Please refer to my history of present illness for further details Plan - Discharge Summary Discharge Rx Participant: No New Discharge Prescriptions: New Meclizine [Antivert] 25 mg PO TID PRN #30 tab PRN Reason: Vertigo Clopidogrel [Plavix] 75 mg PO DAILY #30 tab Continue Acetaminophen/Diphenhydramine [Tylenol PM 500-25mg] 1 tab PO HS Amiodarone [Cordarone] 200 mg PO DAILY Acetaminophen Tab [Tylenol] 650 mg PO Q6HR PRN tab PRN Reason: Mild Pain Or Fever > 100.5 Memantine [Namenda] 10 mg PO BID Lovastatin [Mevacor] 20 mg PO HS glipiZIDE [Glucotrol] 5 mg PO BID Discontinued Losartan Potassium [Cozaar] 25 mg PO HS Discharge Medication List Lovastatin [Mevacor] 20 mg PO HS 05/01/21 [History] Memantine [Namenda] 10 mg PO BID 05/01/21 [History] Acetaminophen/Diphenhydramine [Tylenol PM 500-25mg] 1 tab PO HS 08/03/21 [History] Amiodarone [Cordarone] 200 mg PO DAILY 08/03/21 [History] Acetaminophen Tab [Tylenol] 650 mg PO Q6HR PRN tab 09/02/21 [Rx] glipiZIDE [Glucotrol] 5 mg PO BID 11/13/21 [History] Clopidogrel [Plavix] 75 mg PO DAILY #30 tab 12/05/21 [Rx] Meclizine [Antivert] 25 mg PO TID PRN #30 tab 12/05/21 [Rx] Follow up Appointment(s)/Referral(s): Stephan Quach MD [STAFF PHYSICIAN] - 1 Week Ja Stevenson DO [Primary Care Provider] - 3 Days Floyd Watkins DO [STAFF PHYSICIAN] - 1 Week Discharge Disposition: HOME SELF-CARE
--- NOTE | 2021-12-05 10:16 | P.HPIM ---
History of Present Illness 86-year-old present female came in with complaints of vertigo which started yesterday morning along with the nausea and vomiting. Patient denies any visual disturbance ringing in ears hearing loss denied any weakness. Patient denied any ataxia or gait instability. Patient usually uses a cane and walker. Patient blood pressure is low normal as well although she denied lightheadedness that her symptoms are vertiginous. Patient blood pressure is as low as systolic of 90. Does have history of atrial fibrillation although not in any anticoagulation at this time. Patient probably has a proximal atrial fibrillation patient is presently sinus rhythm at this time. Patient creatinine went up to 1.18 which is high for her age and muscle mass patient is on losartan although has chronic diastolic dysfunction of started dysfunction patient blood pressure is low patient is mildly elevated potassium of 5.2 as well. Her symptoms of vertigo, significant improved with meclizine REVIEW OF SYSTEMS: CONSTITUTIONAL: No fever, no malaise, no fatigue. HEENT: No recent visual problems or hearing problems. Denied any sore throat. CARDIOVASCULAR: No chest pain, orthopnea, PND, no palpitations, no syncope. PULMONARY: No shortness of breath, no cough, no hemoptysis. GASTROINTESTINAL: No diarrhea, no nausea, no vomiting, no abdominal pain. NEUROLOGICAL: No headaches, no weakness, no numbness. HEMATOLOGICAL: Denies any bleeding or petechiae. GENITOURINARY: Denies any burning micturition, frequency, or urgency. MUSCULOSKELETAL/RHEUMATOLOGICAL: Denies any joint pain, swelling, or any muscle pain. ENDOCRINE: Denies any polyuria or polydipsia. The rest of the 14-point review of systems is negative. PHYSICAL EXAMINATION: GENERAL: The patient is alert and oriented x3, not in any acute distress. Well developed, well nourished. HEENT: Pupils are round and equally reacting to light. EOMI. No scleral icterus. No conjunctival pallor. Normocephalic, atraumatic. No pharyngeal erythema. No thyromegaly. CARDIOVASCULAR: S1 and S2 present. No rubs, or gallops. Ejection systolic murmur in the aortic area grade 4/6 PULMONARY: Chest is clear to auscultation, no wheezing or crackles. ABDOMEN: Soft, nontender, nondistended, normoactive bowel sounds. No palpable organomegaly. MUSCULOSKELETAL: No joint swelling or deformity. EXTREMITIES: No cyanosis, clubbing, or pedal edema. NEUROLOGICAL: Gross neurological examination did not reveal any focal deficits. SKIN: No rashes. Assessment and plan -Vertigo appears to be peripheral vertigo, neurology evaluated the patient and they're not recommending any workup with MRI patient's symptoms improved patient will be discharged today. 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 Next line-acute renal failure secondary to losartan which were brisk patient is also hypotensive which is contributing to her acute renal failure. Patient's losartan will be discontinued for following reasons patient is hypotensive, renal failure, hyperkalemia and patient has diastolic dysfunction or systolic dysfunction. -Proximal atrial fibrillation patient isn't presently sinus rhythm patient was resumed on home medications. -Hypomagnesemia magnesium will be replaced -Type 2 diabetes mellitus Patient will be discharged today. 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, heart murmur History of Any Multi-Drug Resistant Organisms: None Reported Past Surgical History: Hysterectomy Additional Past Surgical History / Comment(s): partial lung removal at [facility] Past Anesthesia/Blood Transfusion Reactions: No Reported Reaction Past Psychological History: No Psychological Hx Reported Smoking Status: Former smoker Past Alcohol Use History: None Reported Past Drug Use History: None Reported - Past Family History Mother Family Medical History: Cancer Additional Family Medical History / Comment(s): Unknown type of cancer. Father Family Medical History: Myocardial Infarction ([place]) Medications and Allergies Home Medications Medication Instructions Recorded Confirmed Type Lovastatin [Mevacor] 20 mg PO HS 05/01/21 12/04/21 History Memantine [Namenda] 10 mg PO BID 05/01/21 12/04/21 History Acetaminophen/Diphenhydramine 1 tab PO HS 08/03/21 12/04/21 History [Tylenol PM 500-25mg] Amiodarone [Cordarone] 200 mg PO DAILY 08/03/21 12/04/21 History Acetaminophen Tab [Tylenol] 650 mg PO Q6HR PRN tab 09/02/21 12/04/21 Rx glipiZIDE [Glucotrol] 5 mg PO BID 11/13/21 12/04/21 History Clopidogrel [Plavix] 75 mg PO DAILY #30 tab 12/05/21 Rx Meclizine [Antivert] 25 mg PO TID PRN #30 tab 12/05/21 Rx Allergies Allergy/AdvReac Type Severity Reaction Status Date / Time Sulfa (Sulfonamide Allergy Rash/Hives Verified 12/04/21 08:59 Antibiotics) Physical Exam Vitals: Vital Signs Temp Pulse Pulse Resp BP BP Pulse Ox 12/05/21 07:00 98.2 F 61 20 106/55 99 12/05/21 03:37 97.4 F L 59 L 18 98/43 95 12/04/21 20:41 97.5 F L 57 L 18 151/78 100 12/04/21 15:00 97.4 F L 67 17 180/78 92 L 12/04/21 14:00 67 17 12/04/21 12:19 60 18 175/89 100 12/04/21 10:54 60 17 174/74 96 Intake and Output 12/04/21 12/05/21 12/05/21 22:59 06:59 14:59 Intake Total 118 118 Balance 118 118 Intake: Oral 118 118 Other: # Voids 1 1 Results CBC & Chem 7: 12/04/21 08:49 12/04/21 08:49 Labs: Abnormal Lab Results - Last 24 Hours (Table) 12/04/21 12/04/21 12/05/21 Range/Units 08:49 20:44 07:24 POC Glucose (mg/dL) 185 H 59 L (75-99) mg/dL Ur Leukocyte Esterase Moderate H (Negative) Thrombosis Risk Factor Assmnt - Choose All That Apply Any of the Below Risk Factors Present?: Yes Each Factor Represents 1 point: Obesity (BMI >25) Other Risk Factors: Yes Each Risk Factor Represents 3 Points: Age 75 years or older Other congenital or acquired thrombophilia - If yes, enter type in comment: No Thrombosis Risk Factor Assessment Total Risk Factor Score: 4 Thrombosis Risk Factor Assessment Level: Moderate Risk
--- NOTE | 2021-12-05 10:53 | P.PN ---
Subjective Progress Note Date: 12/05/21 The patient is seen at bedside and per patient she is feeling drastically better. She feels her dizziness has resolved. She denies of any new neurological problems. Per nurse, she has been walking normally with her walker. Objective - Vital Signs Vital signs: Vital Signs Temp 98.2 F 12/05/21 07:00 Pulse 61 12/05/21 08:00 Resp 20 12/05/21 08:00 BP 106/55 12/05/21 07:00 Pulse Ox 99 12/05/21 07:00 Intake & Output 12/04/21 12/05/21 12/05/21 18:59 06:59 18:59 Intake Total 118 118 Balance 118 118 Weight 83.915 kg Intake: Oral 118 118 Other: # Voids 1 - Exam GENERAL: The patient is lying in bed and is not in acute distress. NEUROLOGICAL: Higher mental function: The patient is awake, alert, oriented to self, place and time. Patient is following commands. No aphasia and no neglect. Cranial nerves: The pupils are round, equal and reactive to light. Visual walker are full to confrontation throughout. Extraocular movement is intact no nystagmus is noted. Facial sensation is normal to touch throughout. The facial strength is normal throughout. Hearing is mildly to moderately decreased bilaterally to hand rub. Tongue is midline and moved [id number] without any difficulty. No dysarthria is noted. Shoulder shrug is normal bilaterally. Motor: Gait is able to stand on her own and taking short steps but otherwise was normal. The strength is 5 over 5 throughout. Normal tone and bulk. Cerebellum: Normal finger to nose heel to hassan bilaterally. Sensation: Sensation is normal to touch throughout. Reflexes (right/left): 2+ throughout except ankles are 1+ bilaterally. Plantars are mute bilaterally. WORK-UP: CT of the head is reported as mild atrophy and mild version of chronic small vessel ischemic disease. No acute intracranial abnormality seen. Extensive frothy fluid throughout the right mastoid air cells. Correlate for mastoiditis. I personally reviewed the CT of the head and there is no acute or subacute ischemia there is no truncal hemorrhage CT angiography of the head is reported as hypoplastic right vertebral artery. There is severe focal stenosis proximal V4 segment and suspected the second severe stenosis/occlusion at the mid V4 right vertebral artery. Mild office carotid narrowing throughout the bilateral carotid siphons. No significant ICA stenosis or occlusion. Small 3 mm saccular aneurysm versus infundibula projecting posteriorly from the supraclinoid distal bilateral ICA. CT angiography of the neck was reported as moderate atherosclerotic calcificati on of the bilateral carotid bifurcation. The result is severe greater than 70% focal stenosis proximal left ICA just beyond the carotid bulb. On the right, mild just under 50% proximal ICA stenosis. At diminutive/hypoplastic right vertebral artery with possible severe stenosis in it at its origin. Left vertebral artery patent. Moderate focal stenosis proximal right subclavian artery. Multinodular thyroid gland. Possible partially visualized large low right. Tracheal lymph node in the mediastinum measuring 2.6 x 1.7 cm new from 05/01/2021. Carotid duplex: Is reported as calcified plaque in the right carotid bulb resulting in borderline mild to moderate stenosis of approximately 50%. Calcified plaque in the left carotid bulb moderate 50-69% stenosis. - Labs CBC & Chem 7: 12/04/21 08:49 12/04/21 08:49 Labs: Abnormal Lab Results - Last 24 Hours (Table) 12/04/21 12/05/21 Range/Units 20:44 07:24 POC Glucose (mg/dL) 185 H 59 L (75-99) mg/dL Assessment and Plan Assessment: Acute Vertigo with nausea and vomiting seems peripheral (noticed it with positi onal and relieved with rest. This seems like benign positional vertigo)--today feels drastically better. Left ICA stenosis more than 70% per CTA while the right is less than 50% but per carotid duplex left ICA 50-69% Acute mild hyperkalemia Diabetes mellitus Heart failure History of TB pneumonia in 1994 Plan: * Patient wants to hold off on MRI Brain and since her dizziness has resolved no MRI Brain is needed. * Currently the patient is on meclizine 25 mg 1 tablet 3 times a day, was given Reglan, Zofran started by ED team. Recommend to change meclizine to PRN instead of scheduled. * Vascular surgery team is consulted for carotid stenosis. They stated no intervention as inpatient and to follow-up as outpatient. * Regarding the reported the severe focal stenosis over the V4 segment, the questionable small 3 mm saccular aneurysm versus infundibula projecting posteriorly from the supraclinoid distal bilateral ICA. I recommend patient to follow-up with interventional neurology team for further work-up (Dr. Quach in [facility] [phone]). * Patient was started on aspirin 325 and Plavix 75 mg daily by ED team. Recommend patient to be on dual antiplatelets for 30 days and after that stop Plavix and continue ASA from neurological perspective. Continue Lipitor 10mg daily at bedtime. * PT, OT is consulted * Every 4 hour neuro checks * We'll defer the rest of medical management to primary team. * Recommend patient to follow-up with neurologist as outpatient within 2-3 weeks. The plan is discussed with the patient and her nurse. Since her dizziness has resolved patient is clear from neurological perspective. Tyler Cordero M.D. Neuro-hospitalist Time with Patient: Less than 30
[2021-12-05] MEDS: MAGNESIUM SULFATE-D5W PMX 1 GM in DEXTROSE/WATER 1 100ML.BAG IVPB SCH ×2 (11:18→13:20)
[2021-12-05 11:52] LABS: Glucose,Whole Blood 134 mg/dL (75-99)
[2021-12-05 14:28] VITALS: BP 154/72; PULSE 60; TEMP 97.7
[2021-12-05] MEDS: SODIUM CHLORIDE 0.9% 1,000 ML IV SCH (14:31)
[2021-12-05] MEDS ORDERED: ATORVASTATIN 10 MG TAB PO SCH (21:00)
== END 2021-12-05 15:03 | disposition home or self-care (01) ==
LOC: EC 08:04 → 6NMEDSUR 12:31
PROVIDERS: ADMIT Family Medicine; ATTEND Family Medicine
DX: R42 Dizziness and giddiness (principal); E87.5 Hyperkalemia; N17.9 Acute kidney failure, unspecified; I95.9 Hypotension, unspecified; T46.5X5A Adverse effect of other antihypertensive drugs, initial encounter; I65.23 Occlusion and stenosis of bilateral carotid arteries; I65.01 Occlusion and stenosis of right vertebral artery; E83.42 Hypomagnesemia; I13.0 Hypertensive heart and chronic kidney disease with heart failure and stage 1 through stage 4 chronic kidney disease, or unspecified chronic kidney disease; N18.9 Chronic kidney disease, unspecified; I50.9 Heart failure, unspecified; I48.0 Paroxysmal atrial fibrillation; E11.22 Type 2 diabetes mellitus with diabetic chronic kidney disease; M24.012 Loose body in left shoulder; E66.9 Obesity, unspecified; Z68.33 Body mass index [BMI] 33.0-33.9, adult; I70.8 Atherosclerosis of other arteries; R11.2 Nausea with vomiting, unspecified; Z20.822 Contact with and (suspected) exposure to COVID-19; Z79.84 Long term (current) use of oral hypoglycemic drugs; Z79.899 Other long term (current) drug therapy; Z88.2 Allergy status to sulfonamides; Z87.01 Personal history of pneumonia (recurrent); Z86.11 Personal history of tuberculosis; Z90.710 Acquired absence of both cervix and uterus; Z90.2 Acquired absence of lung [part of]; Z87.891 Personal history of nicotine dependence; Z80.9 Family history of malignant neoplasm, unspecified; Z82.49 Family history of ischemic heart disease and other diseases of the circulatory system
CPT/HCPCS: 96361 ×3; 96365; 96366; 96376; 96375; 99285; 36415; 93005; 97162; 80053; 83735; 84484; 85025; 81001; 87635; 71046; 93880; 70496; 70450; 70498; G0378 ×2; J2765; J3360; J2405; J3475; Q9967

== ENCOUNTER 2022-10-04 11:34 | Emergency (ER) | payer MEDICARE ==
[2022-10-04 11:41] VITALS: RESP 18; TEMP 98
--- NOTE | 2022-10-04 12:26 | XR ---
EXAMINATION TYPE: XR shoulder complete LT DATE OF EXAM: 10/04/2022 CLINICAL HISTORY: pain COMPARISON: NONE TECHNIQUE: Three views of the left shoulder are obtained. FINDINGS: There is no acute fracture/dislocation evident. The acromioclavicular and glenohumeral niles int spaces appear severe degenerative narrowing of. The visualized ribs are intact and unremarkable. IMPRESSION: 1. There is no acute fracture or dislocation. ICD 10 NO FRACTURE, INITIAL EVALUATION
--- NOTE | 2022-10-04 12:32 | ED ---
General Adult HPI - General Chief complaint: Fall Stated complaint: fall, shoulder pain Time Seen by Provider: 10/04/22 11:41 Source: patient, EMS, RN notes reviewed, old records reviewed Mode of arrival: EMS Limitations: no limitations - History of Present Illness Initial comments: This is an 87-year-old female presents emergency Department complaining that she lost her balance and fell today and landed on her left shoulder. Patient complains of left shoulder pain. Patient states she has chronic left shoulder pain but this hurts a little more than normal. Patient states she did not hit her head she denies any neck pain patient denies any numbness weakness. Patient denies any back pain or chest pain. Patient denies any lower extremity pain or hip pain. Patient denies any other problems at this time. - Related Data Home Medications Medication Instructions Recorded Confirmed Lovastatin [Mevacor] 20 mg PO HS 05/01/21 12/04/21 Memantine [Namenda] 10 mg PO BID 05/01/21 12/04/21 Acetaminophen/Diphenhydramine 1 tab PO HS 08/03/21 12/04/21 [Tylenol PM 500-25mg] Amiodarone [Cordarone] 200 mg PO DAILY 08/03/21 12/04/21 glipiZIDE [Glucotrol] 5 mg PO BID 11/13/21 12/04/21 Previous Rx's Medication Instructions Recorded Acetaminophen Tab [Tylenol] 650 mg PO Q6HR PRN tab 09/02/21 Clopidogrel [Plavix] 75 mg PO DAILY #30 tab 12/05/21 Meclizine [Antivert] 25 mg PO TID PRN #30 tab 12/05/21 Allergies Allergy/AdvReac Type Severity Reaction Status Date / Time Sulfa (Sulfonamide Allergy Rash/Hives Verified 12/04/21 08:59 Antibiotics) Review of Systems ROS Statement: Those systems with pertinent positive or pertinent negative responses have been documented in the HPI. ROS Other: All systems not noted in ROS Statement are negative. 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, heart murmur History of Any Multi-Drug Resistant Organisms: None Reported Past Surgical History: Hysterectomy Additional Past Surgical History / Comment(s): partial lung removal at [facility] Past Anesthesia/Blood Transfusion Reactions: No Reported Reaction Past Psychological History: No Psychological Hx Reported Smoking Status: Former smoker Past Alcohol Use History: None Reported Past Drug Use History: None Reported - Past Family History Mother Family Medical History: Cancer Additional Family Medical History / Comment(s): Unknown type of cancer. Father Family Medical History: Myocardial Infarction ([place]) General Exam - General Exam Comments Initial Comments: GENERAL: Patient is well-developed and well-nourished. Patient is nontoxic and well- hydrated and is in mild distress. ENT: Neck is soft and supple. No significant lymphadenopathy is noted. Oropharynx is clear. Moist mucous membranes. Neck has full range of motion without eliciting any pain. EYES: The sclera were anicteric and conjunctiva were pink and moist. Extraocular movements were intact and pupils were equal round and reactive to light. Eyelids were unremarkable. PULMONARY: Unlabored respirations. Good breath sounds bilaterally. No audible rales rhonchi or wheezing was noted. CARDIOVASCULAR: There is a regular rate and rhythm without any murmurs gallops or rubs. ABDOMEN: Soft and nontender with normal bowel sounds. SKIN: Skin is clear with no lesions or rashes and otherwise unremarkable. NEUROLOGIC: Patient is alert and oriented 2. Cranial nerves II through XII are grossly intact. Motor and sensory are also intact. Normal speech, volume and content. Symmetrical smile. MUSCULOSKELETAL: Normal extremities with adequate strength and full range of motion. LYMPHATICS: No significant lymphadenopathy is noted PSYCHIATRIC: Normal psychiatric evaluation. Limitations: no limitations Course Vital Signs 10/04/22 11:38 Temperature 98 F Pulse Rate 78 Respiratory 18 Rate Blood Pressure 154/71 O2 Sat by Pulse 97 Oximetry Medical Decision Making - Medical Decision Making EKG is interpreted by me. EKG shows a sinus rhythm at 77 bpm MO interval is on a 75 QRS is under 18 QT intervals 410 QTC is 442 per patient's EKG shows no ST segment elevation or depression. I interpreted the shoulder x-ray. Shoulder x-ray shows no acute fracture. Disposition Clinical Impression: Shoulder sprain Disposition: HOME SELF-CARE Instructions (If sedation given, give patient instructions): Fall Prevention (ED), Shoulder Sprain (ED) Is patient prescribed a controlled substance at d/c from ED?: No Referrals: Ja Stevenson DO [Primary Care Provider] - 1-2 days Time of Disposition: 12:36
[2022-10-04 14:10] VITALS: BP 140/70; PULSE 79
== END 2022-10-04 14:12 | disposition home or self-care (01) ==
LOC: EC 11:34
DX: S43.402A Unspecified sprain of left shoulder joint, initial encounter (principal); I11.0 Hypertensive heart disease with heart failure; I50.9 Heart failure, unspecified; I48.91 Unspecified atrial fibrillation; E11.9 Type 2 diabetes mellitus without complications; Z88.2 Allergy status to sulfonamides; Z87.891 Personal history of nicotine dependence; W18.30XA Fall on same level, unspecified, initial encounter; Y92.002 Bathroom of unspecified non-institutional (private) residence as the place of occurrence of the external cause
CPT/HCPCS: 99285

== ENCOUNTER 2022-10-05 10:18 | Observation (INO) | payer MEDICARE ==
[2022-10-05 11:29] LABS: Basophils % (A) 0 %; Eosinophils % (A) 0 %; HCT 41.3 % (34.0-46.0); HGB 13.6 gm/dL (11.4-16.0); Lymphocytes # (A) 0.4 k/uL (1.0-4.8); Lymphocytes % (A) 7 %; MCH 32.7 pg (25.0-35.0); MCV 99.4 fL (80.0-100.0); Mean Platelet Volume 8.5; Monocytes # (A) 0.5 k/uL (0-1.0); Monocytes % (A) 7 %; Neutrophils # (A) 5.4 k/uL (1.3-7.7); Neutrophils % (A) 84 %; Platelet Count 170 k/uL (150-450); RBC 4.15 m/uL (3.80-5.40); RDW 12.7 % (11.5-15.5); WBC 6.4 k/uL (3.8-10.6)
[2022-10-05 11:42] LABS: Calcium 8.9 mg/dL (8.4-10.2); Total Bilirubin 0.8 mg/dL (0.2-1.3)
[2022-10-05 11:44] LABS: Albumin 3.8 g/dL (3.5-5.0); Appearance,Urine Cloudy (Clear); Bacteria,Urine Rare /hpf; Bilirubin,Urine Negative (Negative); Blood,Urine Moderate (Negative); Color,Urine Yellow; Glucose,Urine (UA) 1+ (Negative); Ketones,Urine 1+ (Negative); Leukocyte Esterase,Urine Trace (Negative); Mucus,Urine Rare /hpf; Nitrite,Urine Negative (Negative); PH, Urine 5.5 (5.0-8.0); Potassium 5.1 mmol/L (3.5-5.1); Protein,Urine 1+ (Negative); RBC,Urine <1 /hpf (0-5); Specific Gravity,Urine 1.019 (1.001-1.035); Squamous Epithelial Cell,Urine 2 /hpf (0-4); Total Protein 6.1 g/dL (6.3-8.2); Urobilinogen,Urine <2.0 mg/dL (<2.0); WBC,Urine 3 /hpf (0-5)
--- NOTE | 2022-10-05 12:17 | ED ---
General Adult HPI - General Chief complaint: Fall Stated complaint: Fall Time Seen by Provider: 10/05/22 10:19 Source: patient, family, EMS, RN notes reviewed Mode of arrival: EMS Limitations: altered mental status - History of Present Illness Initial comments: This an 87-year-old female presents emergency Department from home via EMS for evaluation of altered mental status. Patient has been here twice last few days she reportedly has been having worsening confusion at home from her baseline. Patient was found crawling under her bed by neighbor. Patient was here yesterday after she had a shoulder injury. Family has expressed concerns of patient did not home at home they're requesting the patient be placed in a facility as she is unable to care for herself at home. She did not report to headache dizziness or blurred vision no recent signs of infection patient denies abdominal pain dysuria hematuria, cold like symptoms. - Related Data Home Medications Medication Instructions Recorded Confirmed Lovastatin [Mevacor] 20 mg PO HS 05/01/21 10/05/22 Memantine [Namenda] 10 mg PO BID 05/01/21 10/05/22 Clopidogrel [Plavix] 75 mg PO DAILY 10/05/22 10/05/22 Donepezil [Aricept] 5 mg PO DAILY 10/05/22 10/05/22 Ferrous Sulfate [Feosol] 325 mg PO DAILY 10/05/22 10/05/22 Losartan Potassium [Cozaar] 25 mg PO DAILY 10/05/22 10/05/22 Previous Rx's Medication Instructions Recorded Meclizine [Antivert] 25 mg PO TID PRN #30 tab 12/05/21 Allergies Allergy/AdvReac Type Severity Reaction Status Date / Time Sulfa (Sulfonamide Allergy Rash/Hives Verified 10/05/22 11:51 Antibiotics) Review of Systems ROS Statement: Those systems with pertinent positive or pertinent negative responses have been documented in the HPI. ROS Other: All systems not noted in ROS Statement are negative. 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, heart murmur History of Any Multi-Drug Resistant Organisms: None Reported Past Surgical History: Hysterectomy Additional Past Surgical History / Comment(s): partial lung removal at [facility] Past Anesthesia/Blood Transfusion Reactions: No Reported Reaction Past Psychological History: No Psychological Hx Reported Smoking Status: Former smoker Past Alcohol Use History: None Reported Past Drug Use History: None Reported - Past Family History Mother Family Medical History: Cancer Additional Family Medical History / Comment(s): Unknown type of cancer. Father Family Medical History: Myocardial Infarction ([place]) General Exam Limitations: altered mental status General appearance: alert, in no apparent distress Head exam: Present: atraumatic, normocephalic, normal inspection Eye exam: Present: normal appearance, PERRL, EOMI. Absent: scleral icterus, conjunctival injection, periorbital swelling ENT exam: Present: normal exam, mucous membranes moist Neck exam: Present: normal inspection, full ROM. Absent: tenderness, meningismus, lymphadenopathy Respiratory exam: Present: normal lung sounds bilaterally. Absent: respiratory distress, wheezes, rales, rhonchi, stridor Cardiovascular Exam: Present: regular rate, normal rhythm, normal heart sounds. Absent: systolic murmur, diastolic murmur, rubs, gallop, clicks GI/Abdominal exam: Present: soft, normal bowel sounds. Absent: distended, tenderness, guarding, rebound, rigid Neurological exam: Present: alert, CN II-XII intact. Absent: oriented X3 Skin exam: Present: warm, dry, intact, normal color. Absent: rash Course Vital Signs 10/05/22 10/05/22 10/05/22 10:30 10:45 11:00 Temperature 95.5 F L Pulse Rate 65 67 64 Respiratory 20 18 18 Rate Blood Pressure 146/70 166/71 166/71 O2 Sat by Pulse 95 99 97 Oximetry 10/05/22 10/05/22 11:15 13:00 Temperature 97.1 F L Pulse Rate 65 77 Respiratory 18 16 Rate Blood Pressure 168/72 145/78 O2 Sat by Pulse 97 97 Oximetry Medical Decision Making - Medical Decision Making 87-year-old female presented for worsening dementia unable to care for herself. Patient was found in her bed, under her vague diffuse. Patient will be admitted for placement. - Lab Data Result diagrams: 10/05/22 11:18 10/05/22 11:18 Lab Results 10/05/22 10/05/22 10/05/22 Range/Units 11:18 11:18 11:18 WBC 6.4 (3.8-10.6) k/uL RBC 4.15 (3.80-5.40) m/uL Hgb 13.6 (11.4-16.0) gm/dL Hct 41.3 (34.0-46.0) % MCV 99.4 (80.0-100.0) fL MCH 32.7 (25.0-35.0) pg MCHC 33.0 (31.0-37.0) g/dL RDW 12.7 (11.5-15.5) % Plt Count 170 (150-450) k/uL MPV 8.5 Neutrophils % 84 % Lymphocytes % 7 % Monocytes % 7 % Eosinophils % 0 % Basophils % 0 % Neutrophils # 5.4 (1.3-7.7) k/uL Lymphocytes # 0.4 L (1.0-4.8) k/uL Monocytes # 0.5 (0-1.0) k/uL Eosinophils # 0.0 (0-0.7) k/uL Basophils # 0.0 (0-0.2) k/uL Sodium 138 (137-145) mmol/L Potassium 5.1 (3.5-5.1) mmol/L Chloride 110 H (98-107) mmol/L Carbon Dioxide 17 L (22-30) mmol/L Anion Gap 11 mmol/L BUN 32 H (7-17) mg/dL Creatinine 0.99 (0.52-1.04) mg/dL Est GFR (CKD-EPI)AfAm 59 (>60 ml/min/1.73 sqM) Est GFR (CKD-EPI)NonAf 51 (>60 ml/min/1.73 sqM) Glucose 185 H (74-99) mg/dL Calcium 8.9 (8.4-10.2) mg/dL Total Bilirubin 0.8 (0.2-1.3) mg/dL AST 95 H (14-36) U/L ALT 49 H (4-34) U/L Alkaline Phosphatase 47 (38-126) U/L Total Protein 6.1 L (6.3-8.2) g/dL Albumin 3.8 (3.5-5.0) g/dL Urine Color Yellow Urine Appearance Cloudy H (Clear) Urine pH 5.5 (5.0-8.0) Ur Specific [place] 1.019 (1.001-1.035) Urine Protein 1+ H (Negative) Urine Glucose (UA) 1+ H (Negative) Urine Ketones 1+ H (Negative) Urine Blood Moderate H (Negative) Urine Nitrite Negative (Negative) Urine Bilirubin Negative (Negative) Urine Urobilinogen <2.0 (<2.0) mg/dL Ur Leukocyte Esterase Trace H (Negative) Urine RBC <1 (0-5) /hpf Urine WBC 3 (0-5) /hpf Ur Squamous Epith Cells 2 (0-4) /hpf Urine Bacteria Rare H (None) /hpf Urine Mucus Rare H (None) /hpf Disposition Clinical Impression: Metabolic encephalopathy, Dementia, Inability to perform activities of daily living Disposition: ADMITTED IP TO THIS [facility] Condition: Fair Time of Disposition: 12:25
[2022-10-05] MEDS ORDERED: NALOXONE 0.4 MG/ML 1 ML VIAL IV PRN (12:25)
[2022-10-05] MEDS ORDERED: MECLIZINE 25 MG TAB PO PRN (12:26)
[2022-10-05] MEDS: SODIUM CHLORIDE 0.9% 1,000 ML IV SCH (12:58)
[2022-10-05] MEDS: ACETAMINOPHEN TAB 325 MG TAB PO PRN (20:36)
[2022-10-05] MEDS: ATORVASTATIN 10 MG TAB PO SCH (20:37)
[2022-10-05] MEDS: MEMANTINE 10 MG TAB PO SCH (21:38)
[2022-10-06] MEDS: ACETAMINOPHEN TAB 325 MG TAB PO PRN ×2 (02:23→21:23)
[2022-10-06] MEDS: SODIUM CHLORIDE 0.9% 1,000 ML IV SCH ×2 (05:04→17:31)
[2022-10-06] MEDS: FERROUS SULFATE 325 MG TAB PO SCH (08:52)
[2022-10-06] MEDS: LOSARTAN 25 MG TAB PO SCH ×2 (08:52→08:56)
[2022-10-06] MEDS: CLOPIDOGREL 75 MG TAB PO SCH (08:52)
[2022-10-06] MEDS: MEMANTINE 10 MG TAB PO SCH ×2 (10:18→20:46)
[2022-10-06] MEDS: DONEPEZIL 5 MG TAB PO SCH (10:19)
--- NOTE | 2022-10-06 14:48 | P.HPIM ---
History of Present Illness H&P Date: 10/06/22 Chief Complaint: Increased generalized weakness, altered mental status This is a pleasant 87-year-old female admitted with increasing generalized weakness, altered mental status in a patient with history of proximal atrial fibrillation, vertigo, recurrent UTIs, recent falls and multiple other medical issues, returned to the ER status post fall, admitted with acute metabolic encephalopathy, possible acute UTI, dehydration with renal insufficiency and multiple other medical issues. Prior ER visit, left shoulder x-ray completed reporting no fracture or dislocation. Vital signs stable, afebrile, normal WBC. Potassium 5.1, chloride 110, bicarb 17, BUN 32, creatinine 0.99. Blood sugars uncontrolled, ranging from 59-185. Patient at the time of this examination, lucid, reporting she receives Meals on Wheels, has groceries delivered to her house per [employer]. UA reporting rare bacteria, trace leukocytes, negative nitrates, moderate blood with cloudy appearance. Gentle IV fluid hydration and empiric antibiotics initiated. Blood pressure soft this am. Review of Systems ROS Statement: Those systems with pertinent positive or pertinent negative responses have been documented in the HPI. ROS Other: All systems not noted in ROS Statement are negative. Past Medical History Past Medical History: Atrial Fibrillation, Heart Failure, Diabetes Mellitus, Hy pertension, Pneumonia Additional Past Medical History / Comment(s): TB in 1955, heart murmur History of Any Multi-Drug Resistant Organisms: None Reported Past Surgical History: Hysterectomy Additional Past Surgical History / Comment(s): partial left lung removal at [facility] Past Anesthesia/Blood Transfusion Reactions: No Reported Reaction Smoking Status: Never smoker - Past Family History Mother Family Medical History: Cancer Additional Family Medical History / Comment(s): Unknown type of cancer. Father Family Medical History: Myocardial Infarction (ME) Medications and Allergies Home Medications Medication Instructions Recorded Confirmed Type Lovastatin [Mevacor] 20 mg PO HS 05/01/21 10/05/22 History Memantine [Namenda] 10 mg PO BID 05/01/21 10/05/22 History Meclizine [Antivert] 25 mg PO TID PRN #30 tab 12/05/21 10/05/22 Rx Clopidogrel [Plavix] 75 mg PO DAILY 10/05/22 10/05/22 History Donepezil [Aricept] 5 mg PO DAILY 10/05/22 10/05/22 History Ferrous Sulfate [Feosol] 325 mg PO DAILY 10/05/22 10/05/22 History Losartan Potassium [Cozaar] 25 mg PO DAILY 10/05/22 10/05/22 History Allergies Allergy/AdvReac Type Severity Reaction Status Date / Time Sulfa (Sulfonamide Allergy Rash/Hives Verified 10/05/22 11:51 Antibiotics) Physical Exam Vitals: Vital Signs Temp Pulse Pulse Resp BP BP Pulse Ox 10/06/22 05:00 97.9 F 57 L 18 96/50 96 10/05/22 19:39 97.9 F 72 18 127/73 97 10/05/22 17:45 98.1 F 69 18 124/58 99 10/05/22 16:00 145/79 10/05/22 15:00 152/67 94 L 10/05/22 14:00 162/104 95 10/05/22 13:00 97.1 F L 77 16 156/72 97 10/05/22 12:00 170/130 95 10/05/22 11:15 65 18 168/72 97 10/05/22 11:00 64 18 166/71 97 10/05/22 10:45 67 18 166/71 99 10/05/22 10:30 95.5 F L 65 20 146/70 95 Intake and Output 10/05/22 10/06/22 10/06/22 22:59 06:59 14:59 Intake Total 500 Output Total 100 Balance 400 Intake: Oral 500 Output: Urine 100 Other: Voiding Method External Catheter External Catheter # Voids 1 Weight 87 kg PHYSICAL EXAMINATION: GENERAL: The patient is alert and oriented x3, not in any acute distress. Well developed, well nourished. HEENT: Pupils are round and equally reacting to light. EOMI. No scleral icterus. No conjunctival pallor. Normocephalic, atraumatic. No pharyngeal erythema. No thyromegaly. CARDIOVASCULAR: S1 and S2 present. No rubs, or gallops. Ejection systolic murmur in the aortic area grade 4/6 PULMONARY: Chest is clear to auscultation, no wheezing or crackles. ABDOMEN: Soft, nontender, nondistended, normoactive bowel sounds. No palpable organomegaly. MUSCULOSKELETAL: No joint swelling or deformity. EXTREMITIES: No cyanosis, clubbing, or pedal edema. NEUROLOGICAL: Gross neurological examination did not reveal any focal deficits. SKIN: No rashes. Results CBC & Chem 7: 10/05/22 11:18 10/05/22 11:18 Labs: Abnormal Lab Results - Last 24 Hours (Table) 10/05/22 10/05/22 10/05/22 Range/Units 11:18 11:18 11:18 Lymphocytes # 0.4 L (1.0-4.8) k/uL Chloride 110 H (98-107) mmol/L Carbon Dioxide 17 L (22-30) mmol/L BUN 32 H (7-17) mg/dL Glucose 185 H (74-99) mg/dL AST 95 H (14-36) U/L ALT 49 H (4-34) U/L Total Protein 6.1 L (6.3-8.2) g/dL Urine Appearance Cloudy H (Clear) Urine Protein 1+ H (Negative) Urine Glucose (UA) 1+ H (Negative) Urine Ketones 1+ H (Negative) Urine Blood Moderate H (Negative) Ur Leukocyte Esterase Trace H (Negative) Urine Bacteria Rare H (None) /hpf Urine Mucus Rare H (None) /hpf Thrombosis Risk Factor Assmnt - Choose All That Apply Each Factor Represents 1 point: Medical pt on bed rest, Obesity (BMI >25) Each Risk Factor Represents 3 Points: Age 75 years or older Thrombosis Risk Factor Assessment Total Risk Factor Score: 5 Thrombosis Risk Factor Assessment Level: High Risk Assessment and Plan Assessment: Acute metabolic encephalopathy, accompanied by increased weakness Acute dehydration with acute renal insufficiency Possible acute UTI, empiric antibiotics initiated History of falls Dementia History of vertigo, BPV History of Left ICA stenosis more than 70% per CTA, right is less than 50% ,carotid duplex left ICA 50-69%. Diabetes mellitus II Chronic proximal atrial fibrillation Plan: Continue on current medication regime ,monitoring and symptomatic treatment. Orthostatic vital signs. Empiric antibiotics initiated. PT/OT. Social work consulted to assist with discharge planning for subacute rehab. The impression and plan of care has been dictated as directed. : I performed a history and examination of this patient, discussed the same with the dictator. I agree with the dictator's note ,documented as a scribe. Any additional findings or plans will be noted.
[2022-10-06] MEDS ORDERED: DEXTROSE 50% SYRINGE 50 ML IVP PRN ×2 (14:56)
[2022-10-06] MEDS: PANTOPRAZOLE 40 MG/10 ML VIAL IVP SCH (16:40)
[2022-10-06 17:07] LABS: Glucose,Whole Blood 186 mg/dL (70-110)
[2022-10-06] MEDS: INSULIN ASPART (NovoLOG) 100 UNIT/ML VIAL SQ SCH ×2 (17:30→20:46)
[2022-10-06 20:11] LABS: Glucose,Whole Blood 183 mg/dL (70-110)
[2022-10-06] MEDS: ATORVASTATIN 10 MG TAB PO SCH (20:46)
[2022-10-06] MEDS: TEMAZEPAM 15 MG CAP PO PRN (22:36)
[2022-10-07] MEDS: SODIUM CHLORIDE 0.9% 1,000 ML IV SCH ×2 (03:59→20:44)
[2022-10-07 07:38] LABS: Glucose,Whole Blood 147 mg/dL (70-110)
[2022-10-07] MEDS: INSULIN ASPART (NovoLOG) 100 UNIT/ML VIAL SQ SCH ×4 (08:22→20:43)
[2022-10-07] MEDS: FERROUS SULFATE 325 MG TAB PO SCH (10:31)
[2022-10-07] MEDS: CLOPIDOGREL 75 MG TAB PO SCH (10:31)
[2022-10-07] MEDS: PANTOPRAZOLE 40 MG/10 ML VIAL IVP SCH (10:31)
[2022-10-07] MEDS: MEMANTINE 10 MG TAB PO SCH ×2 (10:32→20:43)
[2022-10-07] MEDS: DONEPEZIL 5 MG TAB PO SCH (10:32)
[2022-10-07] MEDS: LOSARTAN 25 MG TAB PO SCH (10:33)
[2022-10-07 12:27] LABS: Glucose,Whole Blood 150 mg/dL (70-110)
--- NOTE | 2022-10-07 13:17 | CT ---
EXAMINATION TYPE: CT brain wo con DATE OF EXAM: 10/07/2022 COMPARISON: 12/04/21 HISTORY: Altered mental status CT DLP: 1064.[address] of the brain was performed. The ventricles, basal cisterns and sulci overlying the cerebral convexities demonstrate mild enlargem ent. There is no evidence for intracranial hemorrhage or sulcal effacement. There is decreased attenuation about the periventricular white matter and deep white matter of both c erebral hemispheres, compatible with chronic small vessel ischemia. Differential diagnosis does inclu de demyelination. No mass effects are seen.No midline shift. Osseous calvarium is intact. If symptoms persist consider MRI. IMPRESSION: 1. Age related atrophic and chronic small vessel ischemic change without acute intracranial process s een at this time.
[2022-10-07 17:24] LABS: Glucose,Whole Blood 144 mg/dL (70-110)
[2022-10-07] MEDS: ACETAMINOPHEN TAB 325 MG TAB PO PRN (19:33)
[2022-10-07 20:23] LABS: Glucose,Whole Blood 215 mg/dL (70-110)
[2022-10-07] MEDS: ATORVASTATIN 10 MG TAB PO SCH (20:43)
--- NOTE | 2022-10-07 22:36 | XR ---
EXAMINATION TYPE: XR lumbar spine 2 or 3V DATE OF EXAM: 10/07/2022 COMPARISON: NONE HISTORY: Back pain TECHNIQUE: 3 view FINDINGS: There is a mild first-degree L4-5 degenerative spondylolisthesis. There is multilevel degen erative disc space narrowing from T12 to S1 with vacuum disc and spur formation. No compression fract ure. Abdominal aorta is atheromatous. Sacroiliac joints are intact. IMPRESSION: Multilevel moderate spondylotic changes. Degenerative first degree L4-5 spondylolisthesis . No compression fracture. No significant change compared to old CT scan of 05-20.
[2022-10-08 07:08] LABS: Glucose,Whole Blood 151 mg/dL (70-110)
[2022-10-08] MEDS: INSULIN ASPART (NovoLOG) 100 UNIT/ML VIAL SQ SCH ×4 (09:29→20:55)
[2022-10-08] MEDS: CLOPIDOGREL 75 MG TAB PO SCH (09:29)
[2022-10-08] MEDS: MEMANTINE 10 MG TAB PO SCH ×2 (09:29→20:55)
[2022-10-08] MEDS: DONEPEZIL 5 MG TAB PO SCH (09:29)
[2022-10-08] MEDS: LOSARTAN 25 MG TAB PO SCH (09:29)
[2022-10-08] MEDS: PANTOPRAZOLE 40 MG TABLET PO SCH (09:29)
[2022-10-08] MEDS: FERROUS SULFATE 325 MG TAB PO SCH (09:29)
--- NOTE | 2022-10-08 09:51 | P.PN ---
Subjective Progress Note Date: 10/07/22 H&P Date: 10/06/22 Chief Complaint: Increased generalized weakness, altered mental status This is a pleasant 87-year-old female admitted with increasing generalized weakness, altered mental status in a patient with history of proximal atrial fibrillation, vertigo, recurrent UTIs, recent falls and multiple other medical issues, returned to the ER status post fall, admitted with acute metabolic encephalopathy, possible acute UTI, dehydration with renal insufficiency and multiple other medical issues. Prior ER visit, left shoulder x-ray completed reporting no fracture or dislocation. Vital signs stable, afebrile, normal WBC. Potassium 5.1, chloride 110, bicarb 17, BUN 32, creatinine 0.99. Blood sugars uncontrolled, ranging from 59-185. Patient at the time of this examination, lucid, reporting she receives Meals on Wheels, has groceries delivered to her house per [employer]. UA reporting rare bacteria, trace leukocytes, negative nitrates, moderate blood with cloudy appearance. Gentle IV fluid hydration and empiric antibiotics initiated. Blood pressure soft this am. 10/07/2022 maintained on gentle IV fluid hydration, blood pressures imp roved.continues to have significant weakness, gait slow-at times needs direction, forgetful. Complains of lower back pain, lumbar x-ray ordered. Continues on empiric ceftriaxone. Mild fluctuating confusion. Denies lightheadedness, dizziness or focal deficits, no headache. Denies chest pain, palpitations or shortness of breath. Afebrile. Received Restoril last night for insomnia, slept well. Objective - Vital Signs Vital signs: Vital Signs Temp 97.6 F 10/08/22 05:10 Pulse 70 10/08/22 05:10 Resp 17 10/08/22 05:10 BP 161/74 10/08/22 05:10 Pulse Ox 97 10/08/22 05:10 FiO2 Intake & Output 10/07/22 10/08/22 10/08/22 18:59 06:59 18:59 Intake Total 900 Balance 900 Intake: Intake, IV Titration 900 Amount Sodium Chloride 0.9% 1, 900 000 ml @ 75 mls/hr IV . [id number] [facility] Rx#:[id number] Other: Voiding Method External Catheter External Catheter # Voids 1 # Bowel Movements 1 - Exam PHYSICAL EXAMINATION: VS: Temperature 97.4, pulse 74, respiratory 18, blood pressure 144/77, O2 sat 97% on room air GENERAL: alert and oriented x3, sitting up in bed, pleasant, cooperative HEENT: Pupils are round and equally reacting to light. EOMI. No scleral icterus. No conjunctival pallor. Normocephalic, atraumatic CARDIOVASCULAR: S1 and S2 present. No rubs, or gallops. Ejection systolic murmur in the aortic area grade 4/6 PULMONARY: Unlabored, Chest is clear to auscultation, no wheezing or crackles. ABDOMEN: Soft, nontender, nondistended, normoactive bowel sounds. No palpable organomegaly. EXTREMITIES: No cyanosis, clubbing, or pedal edema. NEUROLOGICAL: Gross neurological examination did not reveal any focal deficits. SKIN: Warm and dry No rashes. - Labs CBC & Chem 7: 10/05/22 11:18 10/05/22 11:18 Labs: Abnormal Lab Results - Last 24 Hours (Table) 10/07/22 10/07/22 10/07/22 Range/Units 12:24 17:20 20:22 POC Glucose (mg/dL) 150 H 144 H 215 H (70-110) mg/dL 10/08/22 Range/Units 07:06 POC Glucose (mg/dL) 151 H (70-110) mg/dL Assessment and Plan Assessment: Acute metabolic encephalopathy, accompanied by increased weakness Acute dehydration with acute renal insufficiency Possible acute UTI, empiric antibiotics initiated History of falls Dementia, senile brain disorder, mild Chronic lower back pain, without bruising History of vertigo, BPV History of Left ICA stenosis more than 70% per CTA, right is less than 50% ,carotid duplex left ICA 50-69%. Diabetes mellitus II Chronic proximal atrial fibrillation Plan: Continue on current medication regime ,monitoring and symptomatic treatment. Brain CT and lumbar x-rays ordered . Maintain gentle IV fluid hydration and continue empiric antibiotics. PT/OT. Discharge planning in place for subacute rehab. tomorrow. The impression and plan of care has been dictated as directed. : I performed a history and examination of this patient, discussed the same with the dictator. I agree with the dictator's note ,documented as a scribe. Any additional findings or plans will be noted.
[2022-10-08 10:59] LABS: African American GFR (CKD) 41 (>60 ml/min/1.73 sqM); Anion Gap 7 mmol/L; Blood Urea Nitrogen 38 mg/dL (7-17); Calcium 8.5 mg/dL (8.4-10.2); Carbon Dioxide 20 mmol/L (22-30); Chloride 114 mmol/L (98-107); Glucose 173 mg/dL (74-99); Non-African American GFR(CKD) 35 (>60 ml/min/1.73 sqM); Potassium 4.8 mmol/L (3.5-5.1); Sodium 141 mmol/L (137-145)
[2022-10-08 11:07] LABS: Glucose,Whole Blood 165 mg/dL (70-110)
--- NOTE | 2022-10-08 12:20 | P.DS ---
Providers Date of admission: 10/05/22 12:33 Expected date of discharge: 10/08/22 Attending physician: Ja Stevenson Primary care physician: Ja Stevenson [facility] Course: Final Diagnoses: Acute metabolic encephalopathy, accompanied by increased weakness Acute dehydration with acute renal insufficiency Acute renal failure, creatinine currently 1.34,Cozaar discontinued Possible acute UTI, empiric antibiotics completed History of falls Dementia, senile brain disorder, mild Possible Demyelination reported per CT, further outpatient workup with neurology. Chronic lower back pain, multilevel moderate spondylitic changes, degenerative first degree L4-5 spondylolisthesis, History of vertigo, BPV History of Left ICA stenosis more than 70% per CTA, right is less than 50% ,carotid duplex left ICA 50-69%. Diabetes mellitus II Chronic proximal atrial fibrillation Hospital course:Chief Complaint: Increased generalized weakness, altered mental status This is a pleasant 87-year-old female admitted with increasing generalized weakness, altered mental status in a patient with history of proximal atrial fibrillation, vertigo, recurrent UTIs, recent falls and multiple other medical issues, returned to the ER status post fall, admitted with acute metabolic encephalopathy, possible acute UTI, dehydration with renal insufficiency and multiple other medical issues. Prior ER visit, left shoulder x-ray completed reporting no fracture or dislocation. Vital signs stable, afebrile, normal WBC. Potassium 5.1, chloride 110, bicarb 17, BUN 32, creatinine 0.99. Blood sugars uncontrolled, ranging from 59-185. Patient at the time of this examination, lucid, reporting she receives Meals on Wheels, has groceries delivered to her house per [employer]. UA reporting rare bacteria, trace leukocytes, negative nitrates, moderate blood with cloudy appearance. Gentle IV fluid hydration and empiric antibiotics initiated. Blood pressure soft this am. 10/07/2022 maintained on gentle IV fluid hydration, blood pressures impr aníbal.continues to have significant weakness, gait slow-at times needs direction, forgetful. Complains of lower back pain, lumbar x-ray ordered. Continues on empiric ceftriaxone. Mild fluctuating confusion. Denies lightheadedness, dizziness or focal deficits, no headache. Denies chest pain, palpitations or shortness of breath. Afebrile. Received Restoril last night for insomnia, slept well. Lumbar x-ray reported multilevel moderate spondylitic changes, degenerative first degree L4-5 spondylolisthesis, no compression fracture, no significant change compared to prior computed tomography scan of 05/20. Brain CT reported age-related atrophy and chronic small vessel ischemic change without acute intracranial process seen at this time; differential diagnosis does include demyelinization-further workup outpatient with neurology. Responded well to IV fluid hydration, vital signs stable, maintaining O2 sats in the high 90s on room air, afebrile. Creatinine currently 1.34, Cozaar discon tinued, hydralazine initiated with parameters. Close monitoring of blood pressures. Significant clinical improvement. Patient will be discharged to subacute rehab today in a stable condition with guarded prognosis. The impression and plan of care has been dictated as directed. : I performed a history and examination of this patient, discussed the same with the dictator. I agree with the dictator's note ,documented as a scribe. Any additional findings or plans will be noted. Patient Condition at Discharge: Stable Plan - Discharge Summary Discharge Rx Participant: No New Discharge Prescriptions: No Action Meclizine [Antivert] 25 mg PO TID PRN #30 tab PRN Reason: Vertigo Losartan Potassium [Cozaar] 25 mg PO DAILY Clopidogrel [Plavix] 75 mg PO DAILY Memantine [Namenda] 10 mg PO BID Lovastatin [Mevacor] 20 mg PO HS Ferrous Sulfate [Feosol] 325 mg PO DAILY Donepezil [Aricept] 5 mg PO DAILY Discharge Medication List Lovastatin [Mevacor] 20 mg PO HS 05/01/21 [History] Memantine [Namenda] 10 mg PO BID 05/01/21 [History] Meclizine [Antivert] 25 mg PO TID PRN #30 tab 12/05/21 [Rx] Clopidogrel [Plavix] 75 mg PO DAILY 10/05/22 [History] Donepezil [Aricept] 5 mg PO DAILY 10/05/22 [History] Ferrous Sulfate [Feosol] 325 mg PO DAILY 10/05/22 [History] Losartan Potassium [Cozaar] 25 mg PO DAILY 10/05/22 [History] Follow up Appointment(s)/Referral(s): Ja Stevenson DO [Primary Care Provider] - 3 Days
[2022-10-08] MEDS: SODIUM CHLORIDE 0.9% 1,000 ML IV SCH (12:39)
[2022-10-08] MEDS: hydrALAZINE HCL 25 MG TAB PO SCH ×3 (13:19→20:55)
[2022-10-08 17:08] LABS: Glucose,Whole Blood 139 mg/dL (70-110)
[2022-10-08 19:47] VITALS: RESP 16
[2022-10-08 20:43] LABS: Glucose,Whole Blood 210 mg/dL (70-110)
[2022-10-08] MEDS: ATORVASTATIN 10 MG TAB PO SCH (20:55)
[2022-10-08] MEDS: TEMAZEPAM 15 MG CAP PO PRN (23:30)
[2022-10-09 05:24] VITALS: PULSE 68; TEMP 97.5
[2022-10-09 07:53] LABS: Glucose,Whole Blood 129 mg/dL (70-110)
[2022-10-09] MEDS: INSULIN ASPART (NovoLOG) 100 UNIT/ML VIAL SQ SCH ×2 (08:18→13:40)
[2022-10-09] MEDS: CLOPIDOGREL 75 MG TAB PO SCH (08:20)
[2022-10-09] MEDS: hydrALAZINE HCL 25 MG TAB PO SCH ×2 (08:20→13:03)
[2022-10-09] MEDS: MEMANTINE 10 MG TAB PO SCH (08:20)
[2022-10-09] MEDS: DONEPEZIL 5 MG TAB PO SCH (08:20)
[2022-10-09] MEDS: FERROUS SULFATE 325 MG TAB PO SCH (08:20)
[2022-10-09] MEDS: PANTOPRAZOLE 40 MG TABLET PO SCH (08:20)
[2022-10-09 10:34] LABS: African American GFR (CKD) 46.7 (60.0-200.0); Anion Gap 10.8 mmol/L (10.00-18.00); BUN/Creat Ratio 31.42 Ratio (12.00-20.00); Blood Urea Nitrogen 37.7 mg/dL (9.0-27.0); Calcium 8.8 mg/dL (8.7-10.3); Carbon Dioxide 20.2 mmol/L (20.0-27.5); Non-African American GFR(CKD) 40.3 (60.0-200.0); Potassium 4.8 mmol/L (3.5-5.5)
[2022-10-09 13:03] VITALS: BP 172/80
[2022-10-09 13:21] LABS: Glucose,Whole Blood 196 mg/dL (70-110)
[2022-10-09] MEDS ORDERED: HEPARIN SODIUM,PORCINE/PF 5,000 UNIT/0.5 ML SYRINGE SQ SCH (16:00)
== END 2022-10-09 16:45 ==
LOC: EC 10:18 → 4SSUR 12:33 → 5NMEDONC 17:18
PROVIDERS: ADMIT Family Medicine; ATTEND Family Medicine
DX: G93.41 Metabolic encephalopathy (principal); E86.0 Dehydration; N17.9 Acute kidney failure, unspecified; E11.9 Type 2 diabetes mellitus without complications; F03.A0 Unspecified dementia, mild, without behavioral disturbance, psychotic disturbance, mood disturbance, and anxiety; I11.0 Hypertensive heart disease with heart failure; I50.9 Heart failure, unspecified; I48.20 Chronic atrial fibrillation, unspecified; I65.22 Occlusion and stenosis of left carotid artery; G47.00 Insomnia, unspecified; M43.16 Spondylolisthesis, lumbar region; M51.35 Other intervertebral disc degeneration, thoracolumbar region; M51.37 Other intervertebral disc degeneration, lumbosacral region; I70.0 Atherosclerosis of aorta; Z79.899 Other long term (current) drug therapy; Z79.02 Long term (current) use of antithrombotics/antiplatelets; Z88.2 Allergy status to sulfonamides; Z90.710 Acquired absence of both cervix and uterus; Z87.891 Personal history of nicotine dependence; Z82.49 Family history of ischemic heart disease and other diseases of the circulatory system; Z80.9 Family history of malignant neoplasm, unspecified; Z87.440 Personal history of urinary (tract) infections; Z91.81 History of falling; Z20.822 Contact with and (suspected) exposure to COVID-19
CPT/HCPCS: 96376; 96361 ×3; 96365; 96366 ×4; 96375; 99285; 36415; 97116; 97530 ×4; 97162; 97535; 97166; 80053; 80048 ×2; 85025; 81001; 83036; 87635; 72100; 70450; G0378 ×5; J0696 ×4; C9113 ×2

== ENCOUNTER 2022-10-17 14:38 | Inpatient (IN) | payer MEDICARE ==
[2022-10-17] MEDS ORDERED: SODIUM CHLORIDE 0.9% 1,000 ML IV ONE (15:13)
--- NOTE | 2022-10-17 15:24 | ED ---
Altered Mental Status HPI - General Source: patient, RN notes reviewed, old records reviewed Mode of arrival: ambulatory Limitations: altered mental status <Castillo Higgins - Last Filed: 10/17/22 15:24> <Elizabeth Victoria - Last Filed: 10/17/22 22:18> - General Chief Complaint: Altered Mental Status Stated Complaint: Altered Mental Status Time Seen by Provider: 10/17/22 14:59 - History of Present Illness Initial Comments: Patient is an 87-year-old female with past medical history remarkable for A. fib, heart failure, diabetes, hypertension, pneumonia presents emergency department after being sent in from a nursing facility, [facility] for weakness, diarrhea. They also states that she is altered. Patient is currently alert and oriented 4. States she believes she is here because she has been having his diarrhea but she states she usually has loose stool. Denies any recent antibiotic use. Denies any fevers, chills, cough. Endorses occasional nausea but none recently. Denies any chest pain, shortness of breath. His no other acute complaints at this time. Does have left shoulder pain which is somewhat chronic. Denies any other acute complaints at this time. Presents for further evaluation. Patient is DO NOT RESUSCITATE, DO NOT INTUBATE based on paperwork from her nursing facility. (Castillo Higgins) - Related Data Home Medications Medication Instructions Recorded Confirmed Lovastatin [Mevacor] 20 mg PO HS 05/01/21 10/17/22 Memantine [Namenda] 10 mg PO BID 05/01/21 10/17/22 Clopidogrel [Plavix] 75 mg PO DAILY 10/05/22 10/17/22 Donepezil [Aricept] 5 mg PO DAILY 10/05/22 10/17/22 Ferrous Sulfate [Iron (65 MG 325 mg PO DAILY 10/05/22 10/17/22 Elemental)] Acetaminophen [Tylenol Arthritis] 650 mg PO Q4H PRN 10/17/22 10/17/22 INSULIN ASPART (NovoLOG) [NovoLOG See Protocol SQ ACHS 10/17/22 10/17/22 (formulary)] Magnesium Hydroxide [Milk of 7,200 mg PO DAILY PRN 10/17/22 10/17/22 Magnesia Concentrate] Meclizine [Antivert] 25 mg PO TID-W/MEALS PRN 10/17/22 10/17/22 Melatonin 1 mg PO HS 10/17/22 10/17/22 Na Phos,M-B/Na Phos,Di-Ba [Fleet 133 ml RECTAL DAILY PRN 10/17/22 10/17/22 Adult] Nystatin 100,000 Unit/gm Powd 1 applic TOPICAL BID 10/17/22 10/17/22 [Mycostatin Powder] bisacodyL [Dulcolax] 10 mg RECTAL DAILY PRN 10/17/22 10/17/22 hydrALAZINE HCL [Apresoline] 25 mg PO Q6H PRN 10/17/22 10/17/22 Previous Rx's Medication Instructions Recorded Pantoprazole Sodium [Protonix] 40 mg PO DAILY #30 tab 10/08/22 Allergies Allergy/AdvReac Type Severity Reaction Status Date / Time Sulfa (Sulfonamide Allergy Rash/Hives Verified 10/17/22 18:29 Antibiotics) Review of Systems ROS Other: All systems not noted in ROS Statement are negative. <Castillo Higgins - Last Filed: 10/17/22 15:24> ROS Other: All systems not noted in ROS Statement are negative. <Elizabeth Victoria - Last Filed: 10/17/22 22:18> ROS Statement: Those systems with pertinent positive or pertinent negative responses have been documented in the HPI. Review of Systems: CONST: Denies fever EYES: Denies blurry vision ENT: Denies nasal congestion C/V: Denies Chest pain RESP: Denies shortness of breath GI: Denies abdominal pain : Denies dysuria SKIN: Denies rash. MSK: Endorses chronic left shoulder pain. NEURO: Denies headache (Castillo Higgins) 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, heart murmur History of Any Multi-Drug Resistant Organisms: None Reported Past Surgical History: Hysterectomy Additional Past Surgical History / Comment(s): partial left lung removal at [facility] Past Anesthesia/Blood Transfusion Reactions: No Reported Reaction Past Psychological History: No Psychological Hx Reported Smoking Status: Never smoker - Past Family History Mother Family Medical History: Cancer Additional Family Medical History / Comment(s): Unknown type of cancer. Father Family Medical History: Myocardial Infarction ([place]) <Castillo Higgins - Last Filed: 10/17/22 15:24> General Exam Limitations: altered mental status <Castillo Higgins - Last Filed: 10/17/22 15:24> - General Exam Comments Initial Comments: General: Appears in no acute distress. HEAD: Normal with no signs of head trauma. EYES: PERRLA, EOMI, conjunctiva normal, no discharge. Pupils are 3 mm and equal bilaterally. ENT: Hearing grossly intact, normal oropharynx. RESPIRATORY: Clear breath sounds bilaterally. No wheezes, rales, or rhonchi. C/V: Regular rate and rhythm. S1 and S2 auscultated, mild symmetrical pitting edema., peripheral pulses 2+ and intact throughout ABD: Abd is soft, nontender, nondistended EXT: Reduced range of motion of the left shoulder secondary to somewhat chronic pain. No obvious deformities. No other injuries. SKIN: No rashes or lesions observed on exposed skin. NEURO: Alert and oriented 4. No focal sensory strength deficits. Cranial nerves II through XII are intact. GCS is 15. NIH 0. (Castillo Higgins) Course Vital Signs 10/17/22 10/17/22 10/17/22 14:46 18:08 20:00 Temperature 97.8 F Pulse Rate 82 96 Pulse Rate [ 83 Pulse Oximetery ] Respiratory 20 16 16 Rate Blood Pressure 122/59 115/62 Blood Pressure [Right Arm] O2 Sat by Pulse 99 98 Oximetry 10/17/22 22:05 Temperature 98.2 F Pulse Rate Pulse Rate [ 83 Pulse Oximetery ] Respiratory 18 Rate Blood Pressure Blood Pressure 115/55 [Right Arm] O2 Sat by Pulse 92 L Oximetry Medical Decision Making - EKG Data -: EKG Interpreted by Me <Castillo Higgins - Last Filed: 10/17/22 15:24> - Lab Data Result diagrams: 10/17/22 16:21 10/17/22 16:21 <Elizabeth Victoria - Last Filed: 10/17/22 22:18> - Medical Decision Making Based on the patient's presentation and physical exam, patient presents for altered mental status at a nursing facility as well as concern for dehydration and C. diff. She has a history of loose stool she states, and is currently al ert and oriented 4. However we'll obtain altered mental status workup as well as workup for weakness. They did request C. diff samples which will be obtained. We will screen her for infection as well as cardiopulmonary etiology. Patient is DNR/DNI based on paperwork from her nursing facility which is on her chart. I will update her CODE STATUS here. She was in agreement with this plan. Vital signs within acceptable limits. Workup is pending. EKG shows no signs of acute ischemia. Patient is signed out to [facility] emergency department physician, Dr. Victoria. (Castillo Higgins) Patient was signed out to me from Dr. Higgins. Patient presented from [facility] for diarrhea. I reviewed the patient's labs. She does have a white count of 19.2. Creatinine increased to 2.02. Troponin 0.493. She is positive for C. diff. Flexiseal is placed as well as a Harding. She is started on oral Vanco. Patient will be admitted to [facility] for c.diff colitis, JOSÉ LUIS and luekocytosis. Patient was in agreement with this plan was admitted before in stable condition (Elizabeth Victoria) - Lab Data Lab Results 10/17/22 10/17/22 10/17/22 Range/Units 16:21 16:21 16:21 WBC 19.2 H (3.8-10.6) k/uL RBC 3.27 L (3.80-5.40) m/uL Hgb 10.9 L (11.4-16.0) gm/dL Hct 33.0 L (34.0-46.0) % MCV 101.0 H (80.0-100.0) fL MCH 33.2 (25.0-35.0) pg MCHC 32.9 (31.0-37.0) g/dL RDW 12.5 (11.5-15.5) % Plt Count 212 (150-450) k/uL MPV 8.9 Neutrophils % 92 % Lymphocytes % 4 % Monocytes % 4 % Eosinophils % 0 % Basophils % 0 % Neutrophils # 17.6 H (1.3-7.7) k/uL Lymphocytes # 0.7 L (1.0-4.8) k/uL Monocytes # 0.7 (0-1.0) k/uL Eosinophils # 0.0 (0-0.7) k/uL Basophils # 0.0 (0-0.2) k/uL Hypochromasia Slight PT 10.3 (9.0-12.0) sec INR 1.0 (<1.2) APTT 22.1 (22.0-30.0) sec Sodium (137-145) mmol/L Potassium (3.5-5.1) mmol/L Chloride (98-107) mmol/L Carbon Dioxide (22-30) mmol/L Anion Gap mmol/L BUN (7-17) mg/dL Creatinine (0.52-1.04) mg/dL Est GFR (CKD-EPI)AfAm (>60 ml/min/1.73 sqM) Est GFR (CKD-EPI)NonAf (>60 ml/min/1.73 sqM) Glucose (74-99) mg/dL Plasma Lactic Acid Ronny (0.7-2.0) mmol/L Calcium (8.4-10.2) mg/dL Total Bilirubin (0.2-1.3) mg/dL AST (14-36) U/L ALT (4-34) U/L Alkaline Phosphatase (38-126) U/L Ammonia (<30) umol/L Troponin I (0.000-0.034) ng/mL Total Protein (6.3-8.2) g/dL Albumin (3.5-5.0) g/dL Urine Color Yellow Urine Appearance Cloudy H (Clear) Urine pH 5.0 (5.0-8.0) Ur Specific [place] 1.020 (1.001-1.035) Urine Protein 1+ H (Negative) Urine Glucose (UA) Negative (Negative) Urine Ketones Negative (Negative) Urine Blood Negative (Negative) Urine Nitrite Negative (Negative) Urine Bilirubin Negative (Negative) Urine Urobilinogen <2.0 (<2.0) mg/dL Ur Leukocyte Esterase Negative (Negative) Urine RBC <1 (0-5) /hpf Urine WBC 2 (0-5) /hpf Ur Squamous Epith Cells 1 (0-4) /hpf Amorphous Sediment Rare H (None) /hpf Urine Bacteria Occasional H (None) /hpf Hyaline Casts 70 H (0-2) /lpf Granular Casts 13 (0) /lpf Urine Mucus Rare H (None) /hpf Urine Opiates Screen Not Detected (NotDetected) Ur Oxycodone Screen Not Detected (NotDetected) Urine Methadone Screen Not Detected (NotDetected) Ur Propoxyphene Screen Not Detected (NotDetected) Ur Barbiturates Screen Not Detected (NotDetected) U Tricyclic Antidepress Not Detected (NotDetected) Ur Phencyclidine Scrn Not Detected (NotDetected) Ur Amphetamines Screen Not Detected (NotDetected) U Methamphetamines Scrn Not Detected (NotDetected) U Benzodiazepines Scrn Detected H (NotDetected) Urine Cocaine Screen Not Detected (NotDetected) U Marijuana (THC) Screen Not Detected (NotDetected) Serum Alcohol mg/dL C. difficile (EIA) Intrp (Negative) Influenza Type A (PCR) (Not Detectd) Influenza Type B (PCR) (Not Detectd) RSV (PCR) (Not Detectd) SARS-CoV-2 (PCR) (Not Detectd) 10/17/22 10/17/22 10/17/22 Range/Units 16:21 16:21 16:21 WBC (3.8-10.6) k/uL RBC (3.80-5.40) m/uL Hgb (11.4-16.0) gm/dL Hct (34.0-46.0) % MCV (80.0-100.0) fL MCH (25.0-35.0) pg MCHC (31.0-37.0) g/dL RDW (11.5-15.5) % Plt Count (150-450) k/uL MPV Neutrophils % % Lymphocytes % % Monocytes % % Eosinophils % % Basophils % % Neutrophils # (1.3-7.7) k/uL Lymphocytes # (1.0-4.8) k/uL Monocytes # (0-1.0) k/uL Eosinophils # (0-0.7) k/uL Basophils # (0-0.2) k/uL Hypochromasia PT (9.0-12.0) sec INR (<1.2) APTT (22.0-30.0) sec Sodium 137 (137-145) mmol/L Potassium 4.3 (3.5-5.1) mmol/L Chloride 110 H (98-107) mmol/L Carbon Dioxide 20 L (22-30) mmol/L Anion Gap 7 mmol/L BUN 37 H (7-17) mg/dL Creatinine 2.02 H (0.52-1.04) mg/dL Est GFR (CKD-EPI)AfAm 25 (>60 ml/min/1.73 sqM) Est GFR (CKD-EPI)NonAf 22 (>60 ml/min/1.73 sqM) Glucose 149 H (74-99) mg/dL Plasma Lactic Acid Ronny 1.5 (0.7-2.0) mmol/L Calcium 8.4 (8.4-10.2) mg/dL Total Bilirubin 0.5 (0.2-1.3) mg/dL AST 20 (14-36) U/L ALT 17 (4-34) U/L Alkaline Phosphatase 58 (38-126) U/L Ammonia <9 (<30) umol/L Troponin I 0.493 H* (0.000-0.034) ng/mL Total Protein 5.5 L (6.3-8.2) g/dL Albumin 3.3 L (3.5-5.0) g/dL Urine Color Urine Appearance (Clear) Urine pH (5.0-8.0) Ur Specific [place] (1.001-1.035) Urine Protein (Negative) Urine Glucose (UA) (Negative) Urine Ketones (Negative) Urine Blood (Negative) Urine Nitrite (Negative) Urine Bilirubin (Negative) Urine Urobilinogen (<2.0) mg/dL Ur Leukocyte Esterase (Negative) Urine RBC (0-5) /hpf Urine WBC (0-5) /hpf Ur Squamous Epith Cells (0-4) /hpf Amorphous Sediment (None) /hpf Urine Bacteria (None) /hpf Hyaline Casts (0-2) /lpf Granular Casts (0) /lpf Urine Mucus (None) /hpf Urine Opiates Screen (NotDetected) Ur Oxycodone Screen (NotDetected) Urine Methadone Screen (NotDetected) Ur Propoxyphene Screen (NotDetected) Ur Barbiturates Screen (NotDetected) U Tricyclic Antidepress (NotDetected) Ur Phencyclidine Scrn (NotDetected) Ur Amphetamines Screen (NotDetected) U Methamphetamines Scrn (NotDetected) U Benzodiazepines Scrn (NotDetected) Urine Cocaine Screen (NotDetected) U Marijuana (THC) Screen (NotDetected) Serum Alcohol <10 mg/dL C. difficile (EIA) Intrp (Negative) Influenza Type A (PCR) (Not Detectd) Influenza Type B (PCR) (Not Detectd) RSV (PCR) (Not Detectd) SARS-CoV-2 (PCR) (Not Detectd) 10/17/22 10/17/22 Range/Units 16:21 16:21 WBC (3.8-10.6) k/uL RBC (3.80-5.40) m/uL Hgb (11.4-16.0) gm/dL Hct (34.0-46.0) % MCV (80.0-100.0) fL MCH (25.0-35.0) pg MCHC (31.0-37.0) g/dL RDW (11.5-15.5) % Plt Count (150-450) k/uL MPV Neutrophils % % Lymphocytes % % Monocytes % % Eosinophils % % Basophils % % Neutrophils # (1.3-7.7) k/uL Lymphocytes # (1.0-4.8) k/uL Monocytes # (0-1.0) k/uL Eosinophils # (0-0.7) k/uL Basophils # (0-0.2) k/uL Hypochromasia PT (9.0-12.0) sec INR (<1.2) APTT (22.0-30.0) sec Sodium (137-145) mmol/L Potassium (3.5-5.1) mmol/L Chloride (98-107) mmol/L Carbon Dioxide (22-30) mmol/L Anion Gap mmol/L BUN (7-17) mg/dL Creatinine (0.52-1.04) mg/dL Est GFR (CKD-EPI)AfAm (>60 ml/min/1.73 sqM) Est GFR (CKD-EPI)NonAf (>60 ml/min/1.73 sqM) Glucose (74-99) mg/dL Plasma Lactic Acid Ronny (0.7-2.0) mmol/L Calcium (8.4-10.2) mg/dL Total Bilirubin (0.2-1.3) mg/dL AST (14-36) U/L ALT (4-34) U/L Alkaline Phosphatase (38-126) U/L Ammonia (<30) umol/L Troponin I (0.000-0.034) ng/mL Total Protein (6.3-8.2) g/dL Albumin (3.5-5.0) g/dL Urine Color Urine Appearance (Clear) Urine pH (5.0-8.0) Ur Specific [place] (1.001-1.035) Urine Protein (Negative) Urine Glucose (UA) (Negative) Urine Ketones (Negative) Urine Blood (Negative) Urine Nitrite (Negative) Urine Bilirubin (Negative) Urine Urobilinogen (<2.0) mg/dL Ur Leukocyte Esterase (Negative) Urine RBC (0-5) /hpf Urine WBC (0-5) /hpf Ur Squamous Epith Cells (0-4) /hpf Amorphous Sediment (None) /hpf Urine Bacteria (None) /hpf Hyaline Casts (0-2) /lpf Granular Casts (0) /lpf Urine Mucus (None) /hpf Urine Opiates Screen (NotDetected) Ur Oxycodone Screen (NotDetected) Urine Methadone Screen (NotDetected) Ur Propoxyphene Screen (NotDetected) Ur Barbiturates Screen (NotDetected) U Tricyclic Antidepress (NotDetected) Ur Phencyclidine Scrn (NotDetected) Ur Amphetamines Screen (NotDetected) U Methamphetamines Scrn (NotDetected) U Benzodiazepines Scrn (NotDetected) Urine Cocaine Screen (NotDetected) U Marijuana (THC) Screen (NotDetected) Serum Alcohol mg/dL C. difficile (EIA) Intrp Positive A (Negative) Influenza Type A (PCR) Not Detected (Not Detectd) Influenza Type B (PCR) Not Detected (Not Detectd) RSV (PCR) Not Detected (Not Detectd) SARS-CoV-2 (PCR) Not Detected (Not Detectd) - EKG Data EKG Comments: 12-lead Electrocardiogram Interpretation Note EKG was reviewed and interpreted by myself. 12-lead ECG performed at 1445 is interpreted by me as revealing normal sinus rhythm at a rate of 83 beats per minute. [place] is normal. HI interval is 168 ms, QRS duration is 120 ms, QTc is 436 seconds.. There were no ST or T wave abnormalities to suggest myocardial ischemia or injury. R wave progression across the precordium was satisfactory. By my interpretation this EKG is non-diagnostic for acute ischemia. When compared with EKG from 10/04/2022, no significant change. (Castillo Higgins) Disposition <Castillo Higgins - Last Filed: 10/17/22 15:24> Is patient prescribed a controlled substance at d/c from ED?: No Time of Disposition: 19:15 Decision to Admit Reason: Admit from EC Decision Date: 10/17/22 Decision Time: 19:15 <Elizabeth Victoria - Last Filed: 10/17/22 22:18> Clinical Impression: Acute encephalopathy, Leukocytosis, C. difficile colitis, JOSÉ LUIS (acute kidney injury) Disposition: ADMITTED IP TO THIS HOSP Condition: Stable
--- NOTE | 2022-10-17 16:23 | CT ---
EXAMINATION TYPE: CT brain wo con CT DLP: 1088.4 mGycm, Automated exposure control for dose reduction was used. DATE OF EXAM: 10/17/2022 3:55 PM COMPARISON: 10/07/2022. CLINICAL INDICATION:Female, 87 years old with history of Altered mental status, AMS TECHNIQUE: Brain: Axial CT images of the brain were obtained with coronal and sagittal reformats created and rev iewed. Contrast used: None. Oral contrast used: None. FINDINGS: Brain: Extra-axial spaces: No abnormal extra-axial fluid collections. Ventricular system: Dilatation in proportion to cerebral atrophy. Cerebral parenchyma: Cerebral atrophy. Left avelar radiata lacunar injuries. No acute intraparenchyma l hemorrhage or mass effect. The lau-white junction is well differentiated. Scattered hypoattenuati ng areas are seen within the white matter. Cerebellum: Unremarkable. Mass effect: No evidence of midline shift. Intracranial vasculature: Atherosclerotic calcifications of the intracranial vessels. Soft tissues: Normal. Calvarium/osseous structures: No depressed skull fracture. Paranasal sinuses and mastoid air cells: Mild scattered paranasal sinus disease. Visualized orbits: Right aphakia IMPRESSION: 1. No acute intracranial process. 2. Nonspecific white matter changes, likely secondary to chronic small vessel ischemic disease.
--- NOTE | 2022-10-17 16:24 | XR ---
EXAMINATION TYPE: XR chest 2V DATE OF EXAM: 10/17/2022 4:07 PM COMPARISON: Chest radiographs from 12/04/2021 TECHNIQUE: XR chest 2V Frontal and lateral views of the chest. CLINICAL INDICATION:Female, 87 years old with history of altered mental status; FINDINGS: Lungs/Pleura: There is no evidence of pleural effusion, focal consolidation, or pneumothorax. Pulmonary vascularity: Unremarkable. Heart/mediastinum: Cardiomediastinal silhouette is enlarged and stable. Musculoskeletal: No acute osseous pathology. IMPRESSION: No acute cardiopulmonary disease/process.
--- NOTE | 2022-10-17 16:34 | XR ---
EXAMINATION TYPE: XR shoulder complete LT DATE OF EXAM: 10/17/2022 4:07 PM INDICATION: Patient age:Female; 87 years old; Reason for study: pain; COMPARISON: 10/04/2022 TECHNIQUE: The left shoulder was examined in AP, internally rotated and scapular Y projections. . FINDINGS: Degeneration changes with joint and joint articulation of the glenoid and humerus. Osteophy te formation is present. No evidence of acute osseous pathology, joint dislocation, or soft tissue swelling. The remaining por tions of the visualized chest are unremarkable. Atherosclerosis of the aorta. Lungs with persistent i s surgically Only in the IMPRESSION: 1. No acute osseous pathology. 2. 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
[2022-10-17 16:40] LABS: Basophils % (A) 0 %; Eosinophils % (A) 0 %; HGB 10.9 gm/dL (11.4-16.0); Hypochromasia Slight; Lymphocytes # (A) 0.7 k/uL (1.0-4.8); Lymphocytes % (A) 4 %; MCH 33.2 pg (25.0-35.0); MCHC 32.9 g/dL (31.0-37.0); Mean Platelet Volume 8.9; Monocytes # (A) 0.7 k/uL (0-1.0); Monocytes % (A) 4 %; Neutrophils # (A) 17.6 k/uL (1.3-7.7); Neutrophils % (A) 92 %; Platelet Count 212 k/uL (150-450); RBC 3.27 m/uL (3.80-5.40); RDW 12.5 % (11.5-15.5); WBC 19.2 k/uL (3.8-10.6)
[2022-10-17 16:52] LABS: ALT 17 U/L (4-34); AST 20 U/L (14-36); African American GFR (CKD) 25 (>60 ml/min/1.73 sqM); Albumin 3.3 g/dL (3.5-5.0); Alcohol <10 mg/dL; Alkaline Phosphatase 58 U/L (38-126); Anion Gap 7 mmol/L; Blood Urea Nitrogen 37 mg/dL (7-17); Calcium 8.4 mg/dL (8.4-10.2); Carbon Dioxide 20 mmol/L (22-30); Chloride 110 mmol/L (98-107); Glucose 149 mg/dL (74-99); Non-African American GFR(CKD) 22 (>60 ml/min/1.73 sqM); Potassium 4.3 mmol/L (3.5-5.1); Sodium 137 mmol/L (137-145); Total Bilirubin 0.5 mg/dL (0.2-1.3); Total Protein 5.5 g/dL (6.3-8.2)
[2022-10-17 16:53] LABS: Lactic Acid, Venous 1.5 mmol/L (0.7-2.0)
[2022-10-17 16:55] LABS: Partial Thromboplastin Time 22.1 sec (22.0-30.0); Prothrombin Time 10.3 sec (9.0-12.0)
[2022-10-17] MEDS ORDERED: NALOXONE 0.4 MG/ML 1 ML VIAL IV PRN (19:15)
[2022-10-17 19:29] LABS: Amorphous Sediment,Urine Rare /hpf; Appearance,Urine Cloudy (Clear); Bacteria,Urine Occasional /hpf; Bilirubin,Urine Negative (Negative); Blood,Urine Negative (Negative); Color,Urine Yellow; Glucose,Urine (UA) Negative (Negative); Granular Casts,Urine 13 /lpf (0); Hyaline Casts,Urine 70 /lpf (0-2); Ketones,Urine Negative (Negative); Leukocyte Esterase,Urine Negative (Negative); Mucus,Urine Rare /hpf; Nitrite,Urine Negative (Negative); Protein,Urine 1+ (Negative); RBC,Urine <1 /hpf (0-5); Squamous Epithelial Cell,Urine 1 /hpf (0-4); Urobilinogen,Urine <2.0 mg/dL (<2.0); WBC,Urine 2 /hpf (0-5)
[2022-10-17 19:37] LABS: Amphetamine Screen,Urine Not Detected (NotDetected); Barbiturate Screen,Urine Not Detected (NotDetected); Benzodiazepines Screen,Urine Detected (NotDetected); Cocaine Screen,Urine Not Detected (NotDetected); Methadone Screen, Urine Not Detected (NotDetected); Opiate Screen,Urine Not Detected (NotDetected); Oxycodone Screen, Urine Not Detected (NotDetected); Phencyclidine Screen,Urine Not Detected (NotDetected); Tricyclic Antidepressant,Urine Not Detected (NotDetected); Urn Cannabinoid Scrn Not Detected (NotDetected)
[2022-10-17] MEDS: VANCOMYCIN 125 MG CAPSULE PO SCH ×2 (20:20→22:54)
[2022-10-17] MEDS: SODIUM CHLORIDE 0.9% 1,000 ML IV SCH (20:20)
[2022-10-17] MEDS ORDERED: ACETAMINOPHEN TAB 325 MG TAB PO PRN (20:59)
[2022-10-17] MEDS ORDERED: bisacodyL 10 MG SUPP RECTAL PRN (20:59)
[2022-10-17] MEDS ORDERED: MECLIZINE 25 MG TAB PO PRN (20:59)
[2022-10-17 21:33] LABS: Glucose,Whole Blood 269 mg/dL (70-110)
[2022-10-17] MEDS: ATORVASTATIN 10 MG TAB PO SCH (21:37)
[2022-10-17] MEDS: INSULIN ASPART (NovoLOG) 100 UNIT/ML VIAL SQ SCH (21:37)
[2022-10-17] MEDS: MEMANTINE 10 MG TAB PO SCH (21:37)
[2022-10-17] MEDS: MELATONIN 1 MG TAB PO SCH (22:54)
[2022-10-18 06:06] LABS: Glucose,Whole Blood 160 mg/dL (70-110)
[2022-10-18] MEDS: INSULIN ASPART (NovoLOG) 100 UNIT/ML VIAL SQ SCH ×4 (06:22→20:27)
[2022-10-18 08:01] LABS: Magnesium 1.4 mg/dL (1.6-2.3); Potassium 4.1 mmol/L (3.5-5.1)
[2022-10-18 08:11] LABS: Basophils % (A) 0 %; Eosinophils % (A) 0 %; HCT 33.4 % (34.0-46.0); HGB 10.4 gm/dL (11.4-16.0); Hypochromasia Moderate; Lymphocytes # (A) 0.8 k/uL (1.0-4.8); Lymphocytes % (A) 5 %; MCH 31.9 pg (25.0-35.0); MCHC 31.2 g/dL (31.0-37.0); MCV 102.5 fL (80.0-100.0); Macrocytosis Slight; Mean Platelet Volume 9.5; Monocytes # (A) 0.7 k/uL (0-1.0); Monocytes % (A) 5 %; Neutrophils # (A) 12.9 k/uL (1.3-7.7); Neutrophils % (A) 88 %; Platelet Count 182 k/uL (150-450); RBC 3.26 m/uL (3.80-5.40); RDW 12.9 % (11.5-15.5); WBC 14.6 k/uL (3.8-10.6)
[2022-10-18] MEDS: SODIUM CHLORIDE 0.9% 1,000 ML IV SCH (08:37)
[2022-10-18] MEDS: CLOPIDOGREL 75 MG TAB PO SCH (08:44)
[2022-10-18] MEDS: MEMANTINE 10 MG TAB PO SCH ×2 (08:44→20:26)
[2022-10-18] MEDS: FERROUS SULFATE 325 MG TAB PO SCH (08:44)
[2022-10-18] MEDS: DONEPEZIL 5 MG TAB PO SCH (08:44)
[2022-10-18] MEDS: VANCOMYCIN 125 MG CAPSULE PO SCH ×4 (08:44→20:26)
[2022-10-18] MEDS ORDERED: PANTOPRAZOLE 40 MG/10 ML VIAL IVP SCH (09:00)
--- NOTE | 2022-10-18 12:00 | P.HPIM ---
History of Present Illness 87-year-old the female came in with complains of diarrhea patient was recently discharged from the hospital after she was treated for pneumonia. Patient is found to have C. diff colitis patient was discharged tomorrow. Patient's pr [facility] care physician is Dr. Stevenson. She has minimally elevated troponins of 0.4 which is stable and plateaued. Patient does have elevated creatinine going about 2 and has come down to 1.86 patient is receiving IV fluids that is normal saline at 100 mL/h which led to hyperchloremia. Patient does have leukocytosis doesn't have any fever. REVIEW OF SYSTEMS: CONSTITUTIONAL: No fever, no malaise, no fatigue. HEENT: No recent visual problems or hearing problems. Denied any sore throat. CARDIOVASCULAR: No chest pain, orthopnea, PND, no palpitations, no syncope. PULMONARY: No shortness of breath, no cough, no hemoptysis. GASTROINTESTINAL: As mentioned in HPI NEUROLOGICAL: No headaches, no weakness, no numbness. HEMATOLOGICAL: Denies any bleeding or petechiae. GENITOURINARY: Denies any burning micturition, frequency, or urgency. MUSCULOSKELETAL/RHEUMATOLOGICAL: Denies any joint pain, swelling, or any muscle pain. ENDOCRINE: Denies any polyuria or polydipsia. The rest of the 14-point review of systems is negative. PHYSICAL EXAMINATION: GENERAL: The patient is alert and oriented x3, not in any acute distress. Well developed, well nourished. HEENT: Pupils are round and equally reacting to light. EOMI. No scleral icterus. No conjunctival pallor. Normocephalic, atraumatic. No pharyngeal erythema. No thyromegaly. CARDIOVASCULAR: S1 and S2 present. No murmurs, rubs, or gallops. PULMONARY: Chest is clear to auscultation, no wheezing or crackles. ABDOMEN: Soft, nontender, nondistended, normoactive bowel sounds. No palpable organomegaly. MUSCULOSKELETAL: No joint swelling or deformity. EXTREMITIES: No cyanosis, clubbing, or pedal edema. NEUROLOGICAL: Gross neurological examination did not reveal any focal deficits. SKIN: No rashes. Assessment and plan -Sepsis secondary to C. diff colitis: Patient will be continued on oral vancomycin patient will be continued on IV fluids IV fluids will be switched to half-normal saline because of the hyperchloremia. nOn anion gap hyperchloremic metabolic acidosis secondary to IV fluids, IV fluids will be switched to half-normal saline. -Acute renal failure secondary to diarrhea patient will continued on IV fluids as mentioned above -Chronic kidney disease stage II Hypertension next and heparin gastroesophageal reflux disease -Diabetes mellitus for which patient is on a subcutaneous insulin -Diabetic nephropathy -generalized deconditioning will need the physical therapy and rehabilitation upon discharge -DVT prophylaxis: Subcutaneous heparin 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, heart murmur History of Any Multi-Drug Resistant Organisms: C-DIFF Date of last positivie culture/infection: 10/17/22 MDRO Source:: stool Past Surgical History: Hysterectomy Additional Past Surgical History / Comment(s): partial left lung removal at [facility] Past Anesthesia/Blood Transfusion Reactions: No Reported Reaction Past Psychological History: No Psychological Hx Reported Additional Psychological History / Comment(s): Pt resides alone. She uses a cane or walker. She has a glucometer. She no longer drives, her friend takes her to [facility]. She receives MOW. Smoking Status: Never smoker Past Alcohol Use History: Rare Additional Past Alcohol Use History / Comment(s): Pt started smoking as a teen and quit in 1973. Past Drug Use History: None Reported - Past Family History Mother Family Medical History: Cancer Additional Family Medical History / Comment(s): Unknown type of cancer. Father Family Medical History: Myocardial Infarction ([place]) Medications and Allergies Home Medications Medication Instructions Recorded Confirmed Type Lovastatin [Mevacor] 20 mg PO HS 05/01/21 10/17/22 History Memantine [Namenda] 10 mg PO BID 05/01/21 10/17/22 History Clopidogrel [Plavix] 75 mg PO DAILY 10/05/22 10/17/22 History Donepezil [Aricept] 5 mg PO DAILY 10/05/22 10/17/22 History Ferrous Sulfate [Iron (65 MG 325 mg PO DAILY 10/05/22 10/17/22 History Elemental)] Pantoprazole Sodium [Protonix] 40 mg PO DAILY #30 tab 10/08/22 10/17/22 Rx Acetaminophen [Tylenol Arthritis] 650 mg PO Q4H PRN 10/17/22 10/17/22 History INSULIN ASPART (NovoLOG) [NovoLOG See Protocol SQ ACHS 10/17/22 10/17/22 History (formulary)] Magnesium Hydroxide [Milk of 7,200 mg PO DAILY PRN 10/17/22 10/17/22 History Magnesia Concentrate] Meclizine [Antivert] 25 mg PO TID-W/MEALS PRN 10/17/22 10/17/22 History Melatonin 1 mg PO HS 10/17/22 10/17/22 History Na Phos,M-B/Na Phos,Di-Ba [Fleet 133 ml RECTAL DAILY PRN 10/17/22 10/17/22 History Adult] Nystatin 100,000 Unit/gm Powd 1 applic TOPICAL BID 10/17/22 10/17/22 History [Mycostatin Powder] bisacodyL [Dulcolax] 10 mg RECTAL DAILY PRN 10/17/22 10/17/22 History hydrALAZINE HCL [Apresoline] 25 mg PO Q6H PRN 10/17/22 10/17/22 History Allergies Allergy/AdvReac Type Severity Reaction Status Date / Time Sulfa (Sulfonamide Allergy Rash/Hives Verified 10/17/22 18:29 Antibiotics) Physical Exam Vitals: Vital Signs Temp Pulse Pulse Resp BP BP Pulse Ox 10/18/22 08:00 99.6 F 86 18 119/51 95 10/18/22 04:00 98 F 101 H 18 101/54 94 L 10/18/22 01:59 85 17 10/18/22 00:00 97.9 F 85 17 111/60 95 10/17/22 22:05 98.2 F 83 18 115/55 92 L 10/17/22 20:00 83 16 10/17/22 18:08 96 16 115/62 98 10/17/22 14:46 97.8 F 82 20 122/59 99 Intake and Output 10/17/22 10/18/22 10/18/22 22:59 06:59 14:59 Intake Total 675 240 Output Total 500 Balance 175 240 Intake: Intake, IV Titration 675 Amount Sodium Chloride 0.9% 1, 675 000 ml @ 75 mls/hr IV . [id number] [facility] Rx#:[id number] Oral 240 Output: Urine 300 Stool 200 Other: Voiding Method Indwelling Catheter Indwelling Catheter Indwelling Catheter Weight 86.636 kg Results CBC & Chem 7: 10/18/22 06:52 10/18/22 06:52 Labs: Abnormal Lab Results - Last 24 Hours (Table) 10/17/22 10/17/22 10/17/22 Range/Units 16:21 16:21 16:21 WBC 19.2 H (3.8-10.6) k/uL RBC 3.27 L (3.80-5.40) m/uL Hgb 10.9 L (11.4-16.0) gm/dL Hct 33.0 L (34.0-46.0) % MCV 101.0 H (80.0-100.0) fL Neutrophils # 17.6 H (1.3-7.7) k/uL Lymphocytes # 0.7 L (1.0-4.8) k/uL Chloride 110 H (98-107) mmol/L Carbon Dioxide 20 L (22-30) mmol/L BUN 37 H (7-17) mg/dL Creatinine 2.02 H (0.52-1.04) mg/dL Glucose 149 H (74-99) mg/dL POC Glucose (mg/dL) (70-110) mg/dL Calcium (8.4-10.2) mg/dL Magnesium (1.6-2.3) mg/dL Troponin I (0.000-0.034) ng/mL Total Protein 5.5 L (6.3-8.2) g/dL Albumin 3.3 L (3.5-5.0) g/dL Urine Appearance Cloudy H (Clear) Urine Protein 1+ H (Negative) Amorphous Sediment Rare H (None) /hpf Urine Bacteria Occasional H (None) /hpf Hyaline Casts 70 H (0-2) /lpf Urine Mucus Rare H (None) /hpf U Benzodiazepines Scrn Detected H (NotDetected) C. difficile (EIA) Intrp (Negative) 10/17/22 10/17/22 10/17/22 Range/Units 16:21 16:21 20:25 WBC (3.8-10.6) k/uL RBC (3.80-5.40) m/uL Hgb (11.4-16.0) gm/dL Hct (34.0-46.0) % MCV (80.0-100.0) fL Neutrophils # (1.3-7.7) k/uL Lymphocytes # (1.0-4.8) k/uL Chloride (98-107) mmol/L Carbon Dioxide (22-30) mmol/L BUN (7-17) mg/dL Creatinine (0.52-1.04) mg/dL Glucose (74-99) mg/dL POC Glucose (mg/dL) (70-110) mg/dL Calcium (8.4-10.2) mg/dL Magnesium (1.6-2.3) mg/dL Troponin I 0.493 H* 0.409 H* (0.000-0.034) ng/mL Total Protein (6.3-8.2) g/dL Albumin (3.5-5.0) g/dL Urine Appearance (Clear) Urine Protein (Negative) Amorphous Sediment (None) /hpf Urine Bacteria (None) /hpf Hyaline Casts (0-2) /lpf Urine Mucus (None) /hpf U Benzodiazepines Scrn (NotDetected) C. difficile (EIA) Intrp Positive A (Negative) 10/17/22 10/18/22 10/18/22 Range/Units 21:32 01:40 06:05 WBC (3.8-10.6) k/uL RBC (3.80-5.40) m/uL Hgb (11.4-16.0) gm/dL Hct (34.0-46.0) % MCV (80.0-100.0) fL Neutrophils # (1.3-7.7) k/uL Lymphocytes # (1.0-4.8) k/uL Chloride (98-107) mmol/L Carbon Dioxide (22-30) mmol/L BUN (7-17) mg/dL Creatinine (0.52-1.04) mg/dL Glucose (74-99) mg/dL POC Glucose (mg/dL) 269 H 160 H (70-110) mg/dL Calcium (8.4-10.2) mg/dL Magnesium (1.6-2.3) mg/dL Troponin I 0.438 H* (0.000-0.034) ng/mL Total Protein (6.3-8.2) g/dL Albumin (3.5-5.0) g/dL Urine Appearance (Clear) Urine Protein (Negative) Amorphous Sediment (None) /hpf Urine Bacteria (None) /hpf Hyaline Casts (0-2) /lpf Urine Mucus (None) /hpf U Benzodiazepines Scrn (NotDetected) C. difficile (EIA) Intrp (Negative) 10/18/22 10/18/22 Range/Units 06:52 06:52 WBC 14.6 H (3.8-10.6) k/uL RBC 3.26 L (3.80-5.40) m/uL Hgb 10.4 L (11.4-16.0) gm/dL Hct 33.4 L (34.0-46.0) % MCV 102.5 H (80.0-100.0) fL Neutrophils # 12.9 H (1.3-7.7) k/uL Lymphocytes # 0.8 L (1.0-4.8) k/uL Chloride 112 H (98-107) mmol/L Carbon Dioxide 19 L (22-30) mmol/L BUN 40 H (7-17) mg/dL Creatinine 1.86 H (0.52-1.04) mg/dL Glucose 142 H (74-99) mg/dL POC Glucose (mg/dL) (70-110) mg/dL Calcium 8.0 L (8.4-10.2) mg/dL Magnesium 1.4 L (1.6-2.3) mg/dL Troponin I (0.000-0.034) ng/mL Total Protein (6.3-8.2) g/dL Albumin (3.5-5.0) g/dL Urine Appearance (Clear) Urine Protein (Negative) Amorphous Sediment (None) /hpf Urine Bacteria (None) /hpf Hyaline Casts (0-2) /lpf Urine Mucus (None) /hpf U Benzodiazepines Scrn (NotDetected) C. difficile (EIA) Intrp (Negative) Thrombosis Risk Factor Assmnt - Choose All That Apply Any of the Below Risk Factors Present?: Yes Each Factor Represents 1 point: Obesity (BMI >25), Swollen legs (current) Other Risk Factors: Yes Each Risk Factor Represents 3 Points: Age 75 years or older Thrombosis Risk Factor Assessment Total Risk Factor Score: 5 Thrombosis Risk Factor Assessment Level: High Risk
[2022-10-18 12:06] LABS: Glucose,Whole Blood 191 mg/dL (70-110)
[2022-10-18] MEDS: SODIUM CHLORIDE 0.45% 1,000 ML IV SCH (12:11)
[2022-10-18 16:50] LABS: Glucose,Whole Blood 174 mg/dL (70-110)
[2022-10-18 20:21] LABS: Glucose,Whole Blood 239 mg/dL (70-110)
[2022-10-18] MEDS: MELATONIN 1 MG TAB PO SCH (20:26)
[2022-10-18] MEDS: HEPARIN SODIUM,PORCINE/PF 5,000 UNIT/0.5 ML SYRINGE SQ SCH (20:26)
[2022-10-18] MEDS: FAMOTIDINE 20 MG TAB PO SCH (20:26)
[2022-10-18] MEDS: ATORVASTATIN 10 MG TAB PO SCH (20:26)
[2022-10-19] MEDS: SODIUM CHLORIDE 0.45% 1,000 ML IV SCH ×3 (04:54→21:17)
[2022-10-19 06:26] LABS: Glucose,Whole Blood 152 mg/dL (70-110)
[2022-10-19] MEDS: INSULIN ASPART (NovoLOG) 100 UNIT/ML VIAL SQ SCH ×4 (07:08→20:53)
[2022-10-19 08:21] LABS: HCT 30.4 % (34.0-46.0); HGB 9.6 gm/dL (11.4-16.0); Hypochromasia Marked; MCHC 31.5 g/dL (31.0-37.0); MCV 104.8 fL (80.0-100.0); Macrocytosis Slight; Mean Platelet Volume 9.5; Platelet Count 184 k/uL (150-450); RDW 12.5 % (11.5-15.5); WBC 10.8 k/uL (3.8-10.6)
[2022-10-19 08:39] LABS: Calcium 7.6 mg/dL (8.4-10.2); Potassium 4.1 mmol/L (3.5-5.1)
[2022-10-19] MEDS: MEMANTINE 10 MG TAB PO SCH ×2 (09:55→21:17)
[2022-10-19] MEDS: FERROUS SULFATE 325 MG TAB PO SCH (09:55)
[2022-10-19] MEDS: CLOPIDOGREL 75 MG TAB PO SCH (09:55)
[2022-10-19] MEDS: HEPARIN SODIUM,PORCINE/PF 5,000 UNIT/0.5 ML SYRINGE SQ SCH ×2 (09:55→21:17)
[2022-10-19] MEDS: VANCOMYCIN 125 MG CAPSULE PO SCH ×4 (09:56→21:17)
[2022-10-19] MEDS: DONEPEZIL 5 MG TAB PO SCH (09:56)
[2022-10-19 11:48] LABS: Glucose,Whole Blood 150 mg/dL (70-110)
--- NOTE | 2022-10-19 15:52 | P.PN ---
Subjective Progress Note Date: 10/19/22 This is an 79-year-old female returned from [facility] rehab, admitted with sepsis secondary to C. diff colitis, hyperchloremia, acute renal failure and multiple other medical issues maintained on oral vancomycin, IV fluid hydration of 0.45 normal saline. T-max 99.5, labs pending. Positive diarrhea, FMS in place. Denies chest pain, palpitations or shortness of breath. Maintaining O2 sats in the 90s on room air. Objective - Vital Signs Vital signs: Vital Signs Temp 96.9 F L 10/19/22 04:00 Pulse 95 10/19/22 04:00 Resp 16 10/19/22 04:00 BP 120/57 10/19/22 04:00 Pulse Ox 95 10/19/22 04:00 FiO2 Intake & Output 10/18/22 10/19/22 10/19/22 18:59 06:59 18:59 Intake Total 990 750 Output Total 450 350 Balance 540 400 Intake: IV 750 750 Sodium Chloride 0.45% 1, 750 750 000 ml @ 75 mls/hr IV . [id number] [facility] Rx#:[id number] Oral 240 Output: Urine 300 200 Stool 150 150 Other: Voiding Method Indwelling Catheter Indwelling Catheter - Exam PHYSICAL EXAMINATION: GENERAL: Sitting up in bed, alert and oriented x3,NAD. HEENT: Pupils are round and equally reacting to light. EOMI. No scleral icterus. No conjunctival pallor. Normocephalic, atraumatic. Neck supple, no JVD CARDIOVASCULAR: S1 and S2 present. No murmurs, rubs, or gallops. PULMONARY: Unlabored ,Chest is clear to auscultation, no wheezing or crackles. ABDOMEN: Soft, nontender, nondistended, normoactive bowel sounds. No palpable organomegaly. MUSCULOSKELETAL: No joint swelling or deformity. EXTREMITIES: No cyanosis, clubbing, or pedal edema. NEUROLOGICAL: Gross neurological examination did not reveal any focal deficits. SKIN: Warm and dry, No rashes. - Labs CBC & Chem 7: 10/19/22 06:33 10/19/22 06:33 Labs: Abnormal Lab Results - Last 24 Hours (Table) 10/18/22 10/18/22 10/18/22 Range/Units 12:03 16:47 20:19 WBC (3.8-10.6) k/uL RBC (3.80-5.40) m/uL Hgb (11.4-16.0) gm/dL Hct (34.0-46.0) % MCV (80.0-100.0) fL POC Glucose (mg/dL) 191 H 174 H 239 H (70-110) mg/dL 10/19/22 10/19/22 Range/Units 06:24 06:33 WBC 10.8 H (3.8-10.6) k/uL RBC 2.90 L (3.80-5.40) m/uL Hgb 9.6 L (11.4-16.0) gm/dL Hct 30.4 L (34.0-46.0) % MCV 104.8 H (80.0-100.0) fL POC Glucose (mg/dL) 152 H (70-110) mg/dL Microbiology - Last 24 Hours (Table) 10/17/22 16:25 Blood Culture - Preliminary Blood No Growth after 24 hours 10/17/22 16:10 Blood Culture - Preliminary Blood No Growth after 24 hours Assessment and Plan Assessment: Sepsis secondary to C. difficile colitis Hyperchloremia Acute renal failure secondary to dehydration, diarrhea Elevated troponins Chronic kidney disease stage II Hypertension Gastroesophageal reflux disease Dementia, senile brain disorder, mild Possible Demyelination reported per prior CT, further outpatient workup with neurology. Chronic lower back pain, multilevel moderate spondylitic changes, degenerative first degree L4-5 spondylolisthesis, History of vertigo, BPV History of Left ICA stenosis more than 70% per CTA, right is less than 50% ,carotid duplex left ICA 50-69%. Diabetes mellitus II Diabetic neuropathy Chronic proximal atrial fibrillation History of falls Generalized deconditioning, return to subacute rehab at discharge Plan: Continue on current medication regime ,monitoring and symptomatic treatment. Labs pending, Infectious disease consulted regarding sepsis/C. difficile colitis. Cultures in progress. Maintain IV fluid hydration. Close monitoring of renal function, electrolytes with repeat labs ordered for a.m. PT/OT. Prognosis guarded given multiple complex medical issues. The impression and plan of care has been dictated as directed. : I performed a history and examination of this patient, discussed the same with the dictator. I agree with the dictator's note ,documented as a scribe. Any additional findings or plans will be noted.
[2022-10-19 16:31] LABS: Glucose,Whole Blood 170 mg/dL (70-110)
[2022-10-19 20:42] LABS: Glucose,Whole Blood 114 mg/dL (70-110)
[2022-10-19] MEDS: MELATONIN 1 MG TAB PO SCH (21:17)
[2022-10-19] MEDS: FAMOTIDINE 20 MG TAB PO SCH (21:17)
[2022-10-19] MEDS: ATORVASTATIN 10 MG TAB PO SCH (21:17)
--- NOTE | 2022-10-19 22:07 | P.CONS ---
History of Present Illness - Reason for Consult Consult date: 10/19/22 C. diff colitis Requesting physician: Summer Gallardo - Chief Complaint Diarrhea x few days - History of Present Illness Patient is a 87-year-old female with a past medical history significant for atrial fibrillation heart failure hypertension diabetes mellitus patient was sent in from local group home for evaluation of weakness and diarrhea apparently patient was noticed to have some mental status changes in this patient who usually awake alert oriented x4 and the patient was having diarrhea apparently has been going on for few days before presentation to the hospital patient denies having any abdominal pain and denies any bloody mucus in the stool and no nausea no vomiting patient on presentation to the hospital was afebrile and no fever has been recorded subsequently patient did have a white count of 19.2 that has came down to 10,000 patient did have elevated BUN/creatinine troponin was elevated liver enzymes are normal urine was negative for urine testing was positive for benzo stool for significant back positive influenza RSV and COVID testing was negative blood cultures have been negative so far patient did have a chest x-ray no acute cardiopulmonary process patient was started on vancomycin infectious disease was consulted for further management of underlying C. difficile colitis Review of Systems Positive points has been mentioned in HPI complete review could not be obtained because of his underlying mental status 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, heart murmur History of Any Multi-Drug Resistant Organisms: C-DIFF Year Discovered:: 10/17/22 MDRO Source:: stool Past Surgical History: Hysterectomy Additional Past Surgical History / Comment(s): partial left lung removal at [facility] Past Anesthesia/Blood Transfusion Reactions: No Reported Reaction Past Psychological History: No Psychological Hx Reported Additional Psychological History / Comment(s): Pt resides alone. She uses a cane or walker. She has a glucometer. She no longer drives, her friend takes her to [facility] She receives MOW. Smoking Status: Never smoker Past Alcohol Use History: Rare Additional Past Alcohol Use History / Comment(s): Pt started smoking as a teen and quit in 1973. Past Drug Use History: None Reported - Past Family History Mother Family Medical History: Cancer Additional Family Medical History / Comment(s): Unknown type of cancer. Father Family Medical History: Myocardial Infarction ([place]) Medications and Allergies Home Medications Medication Instructions Recorded Confirmed Type Lovastatin [Mevacor] 20 mg PO HS 05/01/21 10/17/22 History Memantine [Namenda] 10 mg PO BID 05/01/21 10/17/22 History Clopidogrel [Plavix] 75 mg PO DAILY 10/05/22 10/17/22 History Donepezil [Aricept] 5 mg PO DAILY 10/05/22 10/17/22 History Ferrous Sulfate [Iron (65 MG 325 mg PO DAILY 10/05/22 10/17/22 History Elemental)] Pantoprazole Sodium [Protonix] 40 mg PO DAILY #30 tab 10/08/22 10/17/22 Rx Acetaminophen [Tylenol Arthritis] 650 mg PO Q4H PRN 10/17/22 10/17/22 History INSULIN ASPART (NovoLOG) [NovoLOG See Protocol SQ ACHS 10/17/22 10/17/22 History (formulary)] Magnesium Hydroxide [Milk of 7,200 mg PO DAILY PRN 10/17/22 10/17/22 History Magnesia Concentrate] Meclizine [Antivert] 25 mg PO TID-W/MEALS PRN 10/17/22 10/17/22 History Melatonin 1 mg PO HS 10/17/22 10/17/22 History Na Phos,M-B/Na Phos,Di-Ba [Fleet 133 ml RECTAL DAILY PRN 10/17/22 10/17/22 History Adult] Nystatin 100,000 Unit/gm Powd 1 applic TOPICAL BID 10/17/22 10/17/22 History [Mycostatin Powder] bisacodyL [Dulcolax] 10 mg RECTAL DAILY PRN 10/17/22 10/17/22 History hydrALAZINE HCL [Apresoline] 25 mg PO Q6H PRN 10/17/22 10/17/22 History Cholestyramine (with Sugar) 4 gm PO BID@1100,1800 5 Days #10 10/27/22 Rx [Questran Packet] packet Fidaxomicin [Dificid] 200 mg PO BID 5 Days #10 tab 10/27/22 Rx Allergies Allergy/AdvReac Type Severity Reaction Status Date / Time Sulfa (Sulfonamide Allergy Rash/Hives Verified 10/17/22 18:29 Antibiotics) Physical Exam Vitals: Vital Signs Temp Pulse Resp BP Pulse Ox 10/19/22 08:33 99.5 F 84 16 95/51 94 L 10/19/22 04:00 96.9 F L 95 16 120/57 95 10/19/22 01:29 95 17 10/19/22 00:00 97.9 F 95 17 106/52 93 L 10/18/22 19:44 97.8 F 91 16 99/50 96 10/18/22 16:00 96.5 F L 93 18 112/51 94 L 10/18/22 12:00 97.3 F L 96 20 112/47 94 L Intake and Output 10/18/22 10/19/22 10/19/22 22:59 06:59 14:59 Intake Total 600 750 120 Output Total 450 350 Balance 150 400 120 Intake: IV 600 750 Sodium Chloride 0.45% 1, 600 750 000 ml @ 75 mls/hr IV . [id number] [facility] Rx#:[id number] Oral 120 Output: Urine 300 200 Stool 150 150 Other: Voiding Method Indwelling Catheter Indwelling Catheter GENERAL DESCRIPTION: Elderly female lying in bed, no distress. No tachypnea or accessory muscle of respiration use. HEENT: Shows Pallor , no scleral icterus. Oral mucous membrane is dry. No pharyngeal erythema or thrush NECK: Trachea central, no thyromegaly. LUNGS: Unlabored breathing. Decreased breath sound the bases. No wheeze or crackle. HEART: S1, S2, regular rate and rhythm. No loud murmur ABDOMEN: Soft, no tenderness , guarding or rigidity, no organomegaly EXTREMITIES: No edema of feet. SKIN: No rash, no masses palpable. NEUROLOGICAL: The patient is awake, alert, oriented x2, mood and affect normal. Results CBC & Chem 7: 10/27/22 08:26 10/27/22 08:26 Labs: Abnormal Lab Results - Last 24 Hours (Table) 10/18/22 10/18/22 10/18/22 Range/Units 12:03 16:47 20:19 WBC (3.8-10.6) k/uL RBC (3.80-5.40) m/uL Hgb (11.4-16.0) gm/dL Hct (34.0-46.0) % MCV (80.0-100.0) fL Sodium (137-145) mmol/L Chloride (98-107) mmol/L Carbon Dioxide (22-30) mmol/L BUN (7-17) mg/dL Creatinine (0.52-1.04) mg/dL Glucose (74-99) mg/dL POC Glucose (mg/dL) 191 H 174 H 239 H (70-110) mg/dL Calcium (8.4-10.2) mg/dL 10/19/22 10/19/22 10/19/22 Range/Units 06:24 06:33 06:33 WBC 10.8 H (3.8-10.6) k/uL RBC 2.90 L (3.80-5.40) m/uL Hgb 9.6 L (11.4-16.0) gm/dL Hct 30.4 L (34.0-46.0) % MCV 104.8 H (80.0-100.0) fL Sodium 132 L (137-145) mmol/L Chloride 110 H (98-107) mmol/L Carbon Dioxide 15 L (22-30) mmol/L BUN 46 H (7-17) mg/dL Creatinine 2.12 H (0.52-1.04) mg/dL Glucose 126 H (74-99) mg/dL POC Glucose (mg/dL) 152 H (70-110) mg/dL Calcium 7.6 L (8.4-10.2) mg/dL Microbiology - Last 24 Hours (Table) 10/17/22 16:25 Blood Culture - Preliminary Blood No Growth after 24 hours 10/17/22 16:10 Blood Culture - Preliminary Blood No Growth after 24 hours Assessment and Plan (1) C. difficile colitis Current Visit: Yes Status: Acute Code(s): A04.72 - ENTEROCOLITIS D/T CLOSTRIDIUM DIFFICILE, NOT SPCF RECUR SNOMED Code(s): 368961586 Plan: 1patient presented to hospital with diarrhea and mental status changes did have elevated white count and did have a positive stool for C. difficile and likely acute C. difficile colitis. 2we will continue the patient on oral vancomycin 125 mg p.o. every 6 hours to finish a 10-day course of therapy. 3patient has been encouraged with the probiotic and yogurt intake to decrease recurrence of C. difficile colitis. We will follow on clinical condition and cultures to further adjust medication if needed Thank you for this consultation will follow this patient along with you Time with Patient: Greater than 30
[2022-10-20 06:35] LABS: Glucose,Whole Blood 113 mg/dL (70-110)
[2022-10-20 06:48] LABS: Basophils % (A) 0 %; Eosinophils # (A) 0.2 k/uL (0-0.7); Eosinophils % (A) 3 %; HCT 30.4 % (34.0-46.0); HGB 9.8 gm/dL (11.4-16.0); Hypochromasia Marked; Lymphocytes # (A) 0.8 k/uL (1.0-4.8); Lymphocytes % (A) 11 %; MCH 33.1 pg (25.0-35.0); MCHC 32.2 g/dL (31.0-37.0); MCV 102.8 fL (80.0-100.0); Macrocytosis Slight; Mean Platelet Volume 9.8; Monocytes # (A) 0.6 k/uL (0-1.0); Monocytes % (A) 7 %; Neutrophils % (A) 77 %; Platelet Count 196 k/uL (150-450); RBC 2.95 m/uL (3.80-5.40); RDW 12.4 % (11.5-15.5); WBC 7.8 k/uL (3.8-10.6)
[2022-10-20] MEDS: INSULIN ASPART (NovoLOG) 100 UNIT/ML VIAL SQ SCH ×5 (06:49→20:59)
[2022-10-20 07:05] LABS: Calcium 7.9 mg/dL (8.4-10.2); Magnesium 1.5 mg/dL (1.6-2.3)
[2022-10-20] MEDS: DONEPEZIL 5 MG TAB PO SCH (09:58)
[2022-10-20] MEDS: SODIUM CHLORIDE 0.45% 1,000 ML IV SCH (09:58)
[2022-10-20] MEDS: CLOPIDOGREL 75 MG TAB PO SCH (09:58)
[2022-10-20] MEDS: HEPARIN SODIUM,PORCINE/PF 5,000 UNIT/0.5 ML SYRINGE SQ SCH ×2 (09:58→20:59)
[2022-10-20] MEDS: VANCOMYCIN 125 MG CAPSULE PO SCH ×4 (09:58→20:58)
[2022-10-20] MEDS: FERROUS SULFATE 325 MG TAB PO SCH (09:58)
[2022-10-20] MEDS: MEMANTINE 10 MG TAB PO SCH ×2 (09:58→20:59)
[2022-10-20 12:16] LABS: Glucose,Whole Blood 176 mg/dL (70-110)
--- NOTE | 2022-10-20 15:11 | CDI ---
Documentation Clarification Form Date: 10/20/2022 02:44:56 PM From: Jeri Koenig RN CCDS Admit Date: 10/17/2022 07:15:00 PM Patient Name: Jelly Cedillo I Visit Number: [id number] Discharge Date: ATTENTION: The Clinical Documentation Specialists (CDI) and [facility] Coding Staff appreciate your assistance in clarifying documentation. Please respond to the clarification below the line at the bottom and electronically sign. The CDI & [facility] Coding staff will review the response and follow-up if needed. Please note: Queries are made part of the Legal Health Record. If you have any questions, please contact the author of this message via ITS. Dr. Ja Stevenson Your patient has the documented symptom of Altered Mental Status 10/17, ED Note. Additional clarification regarding the etiology/cause of this symptom is requested. History/Risk Factors: 87-year-old female presents to the ED with diarrhea recently discharged from hospital after being treated for pneumonia. Medical History: Afib; Heart failure, DM, HTN, Pneumonia, Carotid stenosis, DM II, HTN, CKD Stage II, and Dementia. 10/19, Medicine note. Clinical Indicators: VS, 10/17: B/P 122/59; HR 82; Temp 97.8F Oral; RR 20; SpO2 99% room air Labs: 10/17 Wbc 19.2 Hgb 10.9; Neutrophils 17.6; lymphocytes 0.7; C difficile Positive. CT Brain, 10/17: no acute intracranial process. Nonspecific white matter changes, likely secondary to small vessel ischemic disease. ED Note, 10/17: Based on the patients presentation and physical exam, patient presents for altered mental status at a nursing facility as well as concern for dehydration and c.diff. Treatment: 10/17 0.9NS 1L Bolus x 1; 10/17 current Vancomycin PO QID; 10/18 current Aricept PO 10/20 Questran 4gm PO BID; Fall precautions; Two person assist. Please clarify the etiology of the symptom of Altered Mental Status: [ ] Metabolic Encephalopathy due to Sepsis / C difficile colitis [X ] Dementia (if know, specify Type and if with/without Behavioral Disturbance) [ ] Other condition (please specify) [ ] Unable to determine (Template Last Revised: December 2020) MTDD
[2022-10-20 17:12] LABS: Glucose,Whole Blood 154 mg/dL (70-110)
[2022-10-20 20:18] LABS: Glucose,Whole Blood 207 mg/dL (70-110)
[2022-10-20] MEDS: MELATONIN 1 MG TAB PO SCH (20:58)
[2022-10-20] MEDS: ATORVASTATIN 10 MG TAB PO SCH (20:59)
[2022-10-20] MEDS: CHOLESTYRAMINE (WITH SUGAR) 4 GM PACKET PO SCH (20:59)
[2022-10-20] MEDS: FAMOTIDINE 20 MG TAB PO SCH (20:59)
--- NOTE | 2022-10-20 22:36 | P.PN ---
Subjective Progress Note Date: 10/20/22 Principal diagnosis: C. diff colitis Patient is a 87-year-old female with a past medical history significant for atrial fibrillation heart failure hypertension diabetes mellitus patient was sent in from local detention for evaluation of weakness and diarrhea apparently patient was noticed to have some mental status changes , patient has been diagnosed with C. diff colitis on today's evaluation that is 10/20/2022, the patient denies having any fever or any chills breathing comfortably on room air patient denies having any chest pain or shortness of breath still complaining of diarrhea but no blood or mucus in the stools no nausea no vomiting Objective - Vital Signs Vital signs: Vital Signs Temp 97.5 F L 10/20/22 12:20 Pulse 73 10/20/22 12:20 Resp 16 10/20/22 12:20 BP 143/64 10/20/22 12:20 Pulse Ox 99 10/20/22 12:20 FiO2 Intake & Output 10/19/22 10/20/22 10/20/22 18:59 06:59 18:59 Intake Total 1020 1290 118 Output Total 475 1225 220 Balance 545 65 -102 Intake: IV 900 750 Sodium Chloride 0.45% 1, 900 750 000 ml @ 75 mls/hr IV . [id number] [facility] Rx#:[id number] Oral 120 540 118 Output: Urine 275 950 220 Uretheral ([place]arding) 400 Stool 200 275 Other: Voiding Method Indwelling Catheter Indwelling Catheter # Bowel Movements 5 - Exam GENERAL DESCRIPTION: An elderly female lying in bed in no distress RESPIRATORY SYSTEM: Unlabored breathing , decreased breath sounds at bases HEART: S1 S2 regular rate and rhythm , ABDOMEN: Soft , no tenderness EXTREMITIES: No edema feet - Labs CBC & Chem 7: 10/20/22 05:50 10/20/22 05:50 Labs: Abnormal Lab Results - Last 24 Hours (Table) 10/19/22 10/19/22 10/20/22 Range/Units 16:30 20:41 05:50 RBC 2.95 L (3.80-5.40) m/uL Hgb 9.8 L (11.4-16.0) gm/dL Hct 30.4 L (34.0-46.0) % MCV 102.8 H (80.0-100.0) fL Lymphocytes # 0.8 L (1.0-4.8) k/uL Sodium (137-145) mmol/L Chloride (98-107) mmol/L Carbon Dioxide (22-30) mmol/L BUN (7-17) mg/dL Creatinine (0.52-1.04) mg/dL Glucose (74-99) mg/dL POC Glucose (mg/dL) 170 H 114 H (70-110) mg/dL Calcium (8.4-10.2) mg/dL Magnesium (1.6-2.3) mg/dL 10/20/22 10/20/22 10/20/22 Range/Units 05:50 06:32 12:14 RBC (3.80-5.40) m/uL Hgb (11.4-16.0) gm/dL Hct (34.0-46.0) % MCV (80.0-100.0) fL Lymphocytes # (1.0-4.8) k/uL Sodium 134 L (137-145) mmol/L Chloride 109 H (98-107) mmol/L Carbon Dioxide 15 L (22-30) mmol/L BUN 46 H (7-17) mg/dL Creatinine 1.79 H (0.52-1.04) mg/dL Glucose 101 H (74-99) mg/dL POC Glucose (mg/dL) 113 H 176 H (70-110) mg/dL Calcium 7.9 L (8.4-10.2) mg/dL Magnesium 1.5 L (1.6-2.3) mg/dL Microbiology - Last 24 Hours (Table) 10/17/22 16:25 Blood Culture - Preliminary Blood No Growth after 48 hours 10/17/22 16:10 Blood Culture - Preliminary Blood No Growth after 48 hours Assessment and Plan (1) C. difficile colitis Current Visit: Yes Status: Acute Code(s): A04.72 - ENTEROCOLITIS D/T CLOSTRIDIUM DIFFICILE, NOT SPCF RECUR SNOMED Code(s): 851003101 Plan: 1patient presented to hospital with diarrhea and mental status changes did have elevated white count and did have a positive stool for C. difficile and likely acute C. difficile colitis. 2we will continue the patient on oral vancomycin 125 mg p.o. every 6 hours to finish a 10-day course of therapy. 3patient has been encouraged with the probiotic and yogurt intake to decrease recurrence of C. difficile colitis. 4patient still having loose stool we will add Questran for symptomatic relief Time with Patient: Less than 30
[2022-10-21 06:03] LABS: Glucose,Whole Blood 125 mg/dL (70-110)
[2022-10-21] MEDS: INSULIN ASPART (NovoLOG) 100 UNIT/ML VIAL SQ SCH ×4 (06:45→20:51)
[2022-10-21 09:27] VITALS: BMI 31.8
[2022-10-21] MEDS: HEPARIN SODIUM,PORCINE/PF 5,000 UNIT/0.5 ML SYRINGE SQ SCH ×2 (10:52→20:51)
[2022-10-21] MEDS: CHOLESTYRAMINE (WITH SUGAR) 4 GM PACKET PO SCH ×2 (10:52→17:10)
[2022-10-21] MEDS: CLOPIDOGREL 75 MG TAB PO SCH (10:53)
[2022-10-21] MEDS: MEMANTINE 10 MG TAB PO SCH ×2 (10:53→20:51)
[2022-10-21] MEDS: DONEPEZIL 5 MG TAB PO SCH (10:53)
[2022-10-21] MEDS: VANCOMYCIN 125 MG CAPSULE PO SCH ×2 (10:53→12:49)
[2022-10-21] MEDS: FERROUS SULFATE 325 MG TAB PO SCH (10:53)
[2022-10-21] MEDS: SODIUM CHLORIDE 0.45% 1,000 ML IV SCH ×2 (10:54→12:49)
[2022-10-21 11:59] LABS: Glucose,Whole Blood 178 mg/dL (70-110)
--- NOTE | 2022-10-21 14:07 | P.PN ---
Subjective Progress Note Date: 10/21/22 Principal diagnosis: C. diff colitis Patient is a 87-year-old female with a past medical history significant for atrial fibrillation heart failure hypertension diabetes mellitus patient was sent in from local long-term for evaluation of weakness and diarrhea apparently patient was noticed to have some mental status changes , patient has been diagnosed with C. diff colitis on today's evaluation that is 10/21/2022, the patient remains to be afebrile, the patient is breathing comfortably on room air, patient denies having any chest pain or shortness of breath patient still have significant diarrhea requiring placement of fecal management system and has about 600ml output in the bag per the nurseaide Objective - Vital Signs Vital signs: Vital Signs Temp 97.6 F 10/21/22 12:48 Pulse 68 10/21/22 12:48 Resp 16 10/21/22 12:48 BP 142/62 10/21/22 12:48 Pulse Ox 96 10/21/22 12:48 FiO2 Intake & Output 10/20/22 10/21/22 10/21/22 18:59 06:59 18:59 Intake Total 356 118 Output Total 895 600 200 Balance -539 -600 -82 Weight 86.636 kg Intake: Oral 356 118 Output: Urine 595 600 200 Stool 300 Other: Voiding Method Indwelling Catheter Indwelling Catheter - Exam GENERAL DESCRIPTION: An elderly female lying in bed in no distress RESPIRATORY SYSTEM: Unlabored breathing , decreased breath sounds at bases HEART: S1 S2 regular rate and rhythm , ABDOMEN: Soft , no tenderness EXTREMITIES: No edema feet - Labs CBC & Chem 7: 10/20/22 05:50 10/20/22 05:50 Labs: Abnormal Lab Results - Last 24 Hours (Table) 10/20/22 10/20/22 10/21/22 Range/Units 17:11 20:17 06:02 POC Glucose (mg/dL) 154 H 207 H 125 H (70-110) mg/dL 10/21/22 Range/Units 11:49 POC Glucose (mg/dL) 178 H (70-110) mg/dL Microbiology - Last 24 Hours (Table) 10/17/22 16:25 Blood Culture - Preliminary Blood No Growth after 72 hours 10/17/22 16:10 Blood Culture - Preliminary Blood No Growth after 72 hours Assessment and Plan (1) C. difficile colitis Current Visit: Yes Status: Acute Code(s): A04.72 - ENTEROCOLITIS D/T CLOSTRIDIUM DIFFICILE, NOT SPCF RECUR SNOMED Code(s): 594025610 Plan: 1patient presented to hospital with diarrhea and mental status changes did have elevated white count and did have a positive stool for C. difficile and likely acute C. difficile colitis. 2patient did have significant diarrhea despite being on vancomycin for the last few days. Go ahead and discontinue vancomycin and start the patient on deficid continue with the Questran Time with Patient: Less than 30
[2022-10-21] MEDS: FIDAXOMICIN 200 MG TABLET PO SCH ×2 (16:24→20:51)
[2022-10-21 16:55] LABS: Glucose,Whole Blood 167 mg/dL (70-110)
--- NOTE | 2022-10-21 20:00 | P.PN ---
Subjective Progress Note Date: 10/20/22 Patient is a pleasantly confused 87-year-old white female who was admitted with C. difficile colitis from recent hospitalization where she was treated with antibiotics Objective - Vital Signs Vital signs: Vital Signs Temp 97.2 F L 10/20/22 07:59 Pulse 82 10/20/22 07:59 Resp 16 10/20/22 07:59 BP 133/62 10/20/22 07:59 Pulse Ox 96 10/20/22 07:59 FiO2 Intake & Output 10/19/22 10/20/22 10/20/22 18:59 06:59 18:59 Intake Total 1020 1290 118 Output Total 475 1225 220 Balance 545 65 -102 Intake: IV 900 750 Sodium Chloride 0.45% 1, 900 750 000 ml @ 75 mls/hr IV . [id number] [facility] Rx#:[id number] Oral 120 540 118 Output: Urine 275 950 220 Uretheral ([place]) 400 Stool 200 275 Other: Voiding Method Indwelling Catheter Indwelling Catheter # Bowel Movements 5 - Exam GENERAL: Sitting up in bed, alert and oriented x3,NAD. HEENT: Pupils are round and equally reacting to light. EOMI. No scleral icterus. No conjunctival pallor. Normocephalic, atraumatic. Neck supple, no JVD CARDIOVASCULAR: S1 and S2 present. No murmurs, rubs, or gallops. PULMONARY: Unlabored ,Chest is clear to auscultation, no wheezing or crackles. ABDOMEN: Soft, nontender, nondistended, normoactive bowel sounds. No palpable organomegaly. MUSCULOSKELETAL: No joint swelling or deformity. EXTREMITIES: No cyanosis, clubbing, or pedal edema. NEUROLOGICAL: Gross neurological examination did not reveal any focal deficits. SKIN: Warm and dry, No rashes. - Labs CBC & Chem 7: 10/20/22 05:50 10/20/22 05:50 Labs: Abnormal Lab Results - Last 24 Hours (Table) 10/19/22 10/19/22 10/20/22 Range/Units 16:30 20:41 05:50 RBC 2.95 L (3.80-5.40) m/uL Hgb 9.8 L (11.4-16.0) gm/dL Hct 30.4 L (34.0-46.0) % MCV 102.8 H (80.0-100.0) fL Lymphocytes # 0.8 L (1.0-4.8) k/uL Sodium (137-145) mmol/L Chloride (98-107) mmol/L Carbon Dioxide (22-30) mmol/L BUN (7-17) mg/dL Creatinine (0.52-1.04) mg/dL Glucose (74-99) mg/dL POC Glucose (mg/dL) 170 H 114 H (70-110) mg/dL Calcium (8.4-10.2) mg/dL Magnesium (1.6-2.3) mg/dL 10/20/22 10/20/22 Range/Units 05:50 06:32 RBC (3.80-5.40) m/uL Hgb (11.4-16.0) gm/dL Hct (34.0-46.0) % MCV (80.0-100.0) fL Lymphocytes # (1.0-4.8) k/uL Sodium 134 L (137-145) mmol/L Chloride 109 H (98-107) mmol/L Carbon Dioxide 15 L (22-30) mmol/L BUN 46 H (7-17) mg/dL Creatinine 1.79 H (0.52-1.04) mg/dL Glucose 101 H (74-99) mg/dL POC Glucose (mg/dL) 113 H (70-110) mg/dL Calcium 7.9 L (8.4-10.2) mg/dL Magnesium 1.5 L (1.6-2.3) mg/dL Microbiology - Last 24 Hours (Table) 10/17/22 16:25 Blood Culture - Preliminary Blood No Growth after 48 hours 10/17/22 16:10 Blood Culture - Preliminary Blood No Growth after 48 hours Assessment and Plan (1) JOSÉ LUIS (acute kidney injury) Current Visit: Yes Status: Acute Code(s): N17.9 - ACUTE KIDNEY FAILURE, UNSPECIFIED SNOMED Code(s): 63448171 (2) Acute encephalopathy Current Visit: Yes Status: Acute Code(s): G93.40 - ENCEPHALOPATHY, UNSPECIFIED SNOMED Code(s): 87668935 (3) C. difficile colitis Current Visit: Yes Status: Acute Code(s): A04.72 - ENTEROCOLITIS D/T CLOSTRIDIUM DIFFICILE, NOT SPCF RECUR SNOMED Code(s): 201987401 (4) Leukocytosis Current Visit: Yes Status: Acute Code(s): D72.829 - ELEVATED WHITE BLOOD CELL COUNT, UNSPECIFIED SNOMED Code(s): 842288133 (5) Anemia Current Visit: No Status: Acute Code(s): D64.9 - ANEMIA, UNSPECIFIED SNOMED Code(s): 763708544 (6) CKD (chronic kidney disease) Current Visit: No Status: Acute Code(s): N18.9 - CHRONIC KIDNEY DISEASE, UNSPECIFIED SNOMED Code(s): 102149919 (7) Inability to perform activities of daily living Current Visit: No Status: Acute Code(s): Z78.9 - OTHER SPECIFIED HEALTH STATUS SNOMED Code(s): 889521395 (8) Iron deficiency anemia Current Visit: No Status: Acute Priority: High Code(s): D50.9 - IRON DEFICIENCY ANEMIA, UNSPECIFIED SNOMED Code(s): 91283978 Plan: Continue to treat C. difficile colitis with oral vancomycin continue to monitor electrolytes discharge patient hopefully within the next 24 hours to rehab facility where she is to continue her rehab from prior admission
--- NOTE | 2022-10-21 20:03 | P.PN ---
Subjective Progress Note Date: 10/21/22 Patient is a pleasantly confused 87-year-old white female who was admitted with C. difficile colitis from recent hospitalization where she was treated with antibiotics, Doing better today Objective - Vital Signs Vital signs: Vital Signs Temp 97.6 F 10/21/22 12:48 Pulse 68 10/21/22 12:48 Resp 16 10/21/22 12:48 BP 142/62 10/21/22 12:48 Pulse Ox 96 10/21/22 12:48 FiO2 Intake & Output 10/20/22 10/21/22 10/21/22 18:59 06:59 18:59 Intake Total 356 118 Output Total 895 600 200 Balance -539 -600 -82 Weight 86.636 kg Intake: Oral 356 118 Output: Urine 595 600 200 Stool 300 Other: Voiding Method Indwelling Catheter Indwelling Catheter - Exam GENERAL: Sitting up in bed, alert and oriented x3,NAD. HEENT: Pupils are round and equally reacting to light. EOMI. No scleral icterus. No conjunctival pallor. Normocephalic, atraumatic. Neck supple, no JVD CARDIOVASCULAR: S1 and S2 present. No murmurs, rubs, or gallops. PULMONARY: Unlabored ,Chest is clear to auscultation, no wheezing or crackles. ABDOMEN: Soft, nontender, nondistended, normoactive bowel sounds. No palpable organomegaly. MUSCULOSKELETAL: No joint swelling or deformity. EXTREMITIES: No cyanosis, clubbing, or pedal edema. NEUROLOGICAL: Gross neurological examination did not reveal any focal deficits. SKIN: Warm and dry, No rashes. - Labs CBC & Chem 7: 10/20/22 05:50 10/20/22 05:50 Labs: Abnormal Lab Results - Last 24 Hours (Table) 10/20/22 10/20/22 10/21/22 Range/Units 17:11 20:17 06:02 POC Glucose (mg/dL) 154 H 207 H 125 H (70-110) mg/dL 10/21/22 Range/Units 11:49 POC Glucose (mg/dL) 178 H (70-110) mg/dL Microbiology - Last 24 Hours (Table) 10/17/22 16:25 Blood Culture - Preliminary Blood No Growth after 72 hours 10/17/22 16:10 Blood Culture - Preliminary Blood No Growth after 72 hours Assessment and Plan Plan: Continue to treat C. difficile colitis with oral vancomycin continue to monitor electrolytes discharge patient hopefully within the next 24 hours to rehab facility where she is to continue her rehab from prior admission
[2022-10-21 20:26] LABS: Glucose,Whole Blood 190 mg/dL (70-110)
[2022-10-21] MEDS: FAMOTIDINE 20 MG TAB PO SCH (20:51)
[2022-10-21] MEDS: MELATONIN 1 MG TAB PO SCH (20:51)
[2022-10-21] MEDS: ATORVASTATIN 10 MG TAB PO SCH (20:51)
[2022-10-22 06:38] LABS: Glucose,Whole Blood 152 mg/dL (70-110)
[2022-10-22] MEDS: INSULIN ASPART (NovoLOG) 100 UNIT/ML VIAL SQ SCH ×4 (06:45→20:27)
[2022-10-22] MEDS: SODIUM CHLORIDE 0.45% 1,000 ML IV SCH ×2 (08:40→14:59)
[2022-10-22] MEDS: CLOPIDOGREL 75 MG TAB PO SCH (08:41)
[2022-10-22] MEDS: FIDAXOMICIN 200 MG TABLET PO SCH ×2 (08:41→20:32)
[2022-10-22] MEDS: HEPARIN SODIUM,PORCINE/PF 5,000 UNIT/0.5 ML SYRINGE SQ SCH ×2 (08:41→20:32)
[2022-10-22] MEDS: MEMANTINE 10 MG TAB PO SCH ×2 (08:41→20:32)
[2022-10-22] MEDS: DONEPEZIL 5 MG TAB PO SCH (08:41)
[2022-10-22] MEDS: FERROUS SULFATE 325 MG TAB PO SCH (08:41)
[2022-10-22 11:55] LABS: Glucose,Whole Blood 140 mg/dL (70-110)
[2022-10-22] MEDS: CHOLESTYRAMINE (WITH SUGAR) 4 GM PACKET PO SCH ×2 (12:06→17:23)
[2022-10-22 14:39] LABS: Basophils % (A) 1 %; Eosinophils # (A) 0.1 k/uL (0-0.7); Eosinophils % (A) 2 %; HCT 35.2 % (34.0-46.0); Hypochromasia Marked; Lymphocytes # (A) 0.8 k/uL (1.0-4.8); Lymphocytes % (A) 12 %; MCHC 31.3 g/dL (31.0-37.0); Mean Platelet Volume 9.2; Monocytes # (A) 0.4 k/uL (0-1.0); Monocytes % (A) 7 %; Neutrophils % (A) 78 %; Platelet Count 243 k/uL (150-450); RBC 3.45 m/uL (3.80-5.40); RDW 12.6 % (11.5-15.5); WBC 6.4 k/uL (3.8-10.6)
[2022-10-22 14:55] LABS: Calcium 8.1 mg/dL (8.4-10.2); Potassium 4.4 mmol/L (3.5-5.1)
--- NOTE | 2022-10-22 15:02 | CDI ---
Documentation Clarification Form Date: 10/22/2022 02:28:00 PM From: Jeri Koenig RN CCDS Admit Date: 10/17/2022 07:15:00 PM Patient Name: Jelly Cedillo I Visit Number: [id number] Discharge Date: ATTENTION: The Clinical Documentation Specialists (CDI) and [facility] Coding Staff appreciate your assistance in clarifying documentation. Please respond to the clarification below the line at the bottom and electronically sign. The CDI & [facility] Coding staff will review the response and follow-up if needed. Please note: Queries are made part of the Legal Health Record. If you have any questions, please contact the author of this message via ITS. Dr. Jose Alejandro Malone MD Sepsis secondary to C. Difficile colitis is documented H&P, 10/18 and Medicine note, 10/19, but is not noted in subsequent documentation. Clarification is requested. History/Risk Factors: 87-year-old female presents to the ED with diarrhea recently discharged from hospital after being treated for pneumonia. Medical History: Afib; Heart failure, DM, HTN, Pneumonia, Carotid stenosis, DM II, HTN, CKD Stage II, and Dementia. 10/19, Medicine note. Clinical Indicators: VS, 10/17: B/P 122/59; HR 82; Temp 97.8F Oral; RR 20; SpO2 99% room air Labs: 10/17 Wbc 19.2 Hgb 10.9; Neutrophils 17.6; lymphocytes 0.7; C difficile Positive. Blood culture: 10/17 no growth after 96 hours. Treatment: 10/17 0.9NS 1L Bolus x 1; 10/17 10/21 Vancomycin PO QID; 10/21 current Dificid PO BID; 10/20 - current Questran 4gm PO BID Please clarify if the Sepsis is: [ ] Sepsis confirmed, remains under treatment [ ] Sepsis confirmed, resolved [ x ] Sepsis ruled out [ ] Other condition, please specify [ ] Unable to determine (Template Last Revised: December 2020) MTDD
[2022-10-22 17:08] LABS: Glucose,Whole Blood 162 mg/dL (70-110)
[2022-10-22 20:07] LABS: Glucose,Whole Blood 137 mg/dL (70-110)
[2022-10-22] MEDS: MELATONIN 1 MG TAB PO SCH (20:32)
[2022-10-22] MEDS: FAMOTIDINE 20 MG TAB PO SCH (20:32)
[2022-10-22] MEDS: ATORVASTATIN 10 MG TAB PO SCH (20:32)
--- NOTE | 2022-10-22 20:41 | P.PN ---
Subjective Progress Note Date: 10/22/22 Principal diagnosis: C. diff colitis Patient is a 87-year-old female with a past medical history significant for atrial fibrillation heart failure hypertension diabetes mellitus patient was sent in from local halfway for evaluation of weakness and diarrhea apparently patient was noticed to have some mental status changes , patient has been diagnosed with C. diff colitis on today's evaluation that is 10/22/2022, the patient continues to be afebrile, the patient is breathing comfortably on room air, patient denies having any chest pain or shortness of breath patient , the patient diarrhea slightly slow still having the fecal management system, no abdominal pain no nausea no vomiting Objective - Vital Signs Vital signs: Vital Signs Temp 98.0 F 10/22/22 08:35 Pulse 68 10/22/22 12:05 Resp 18 10/22/22 12:05 BP 126/60 10/22/22 12:05 Pulse Ox 95 10/22/22 12:05 FiO2 Intake & Output 10/21/22 10/22/22 10/22/22 18:59 06:59 18:59 Intake Total 354 Output Total 850 1150 Balance -496 -1150 Weight 86.636 kg Intake: Oral 354 Output: Urine 850 550 Stool 600 Other: Voiding Method Indwelling Catheter Indwelling Catheter Indwelling Catheter - Exam GENERAL DESCRIPTION: An elderly female lying in bed in no distress RESPIRATORY SYSTEM: Unlabored breathing , decreased breath sounds at bases HEART: S1 S2 regular rate and rhythm , ABDOMEN: Soft , no tenderness EXTREMITIES: No edema feet - Labs CBC & Chem 7: 10/22/22 14:18 10/22/22 14:18 Labs: Abnormal Lab Results - Last 24 Hours (Table) 10/21/22 10/21/22 10/22/22 Range/Units 16:52 20:25 06:37 POC Glucose (mg/dL) 167 H 190 H 152 H (70-110) mg/dL 10/22/22 Range/Units 11:52 POC Glucose (mg/dL) 140 H (70-110) mg/dL Microbiology - Last 24 Hours (Table) 10/17/22 16:25 Blood Culture - Preliminary Blood No Growth after 96 hours 10/17/22 16:10 Blood Culture - Preliminary Blood No Growth after 96 hours Assessment and Plan (1) C. difficile colitis Current Visit: Yes Status: Acute Code(s): A04.72 - ENTEROCOLITIS D/T CLOSTRIDIUM DIFFICILE, NOT SPCF RECUR SNOMED Code(s): 470275749 Plan: 1patient presented to hospital with diarrhea and mental status changes did have elevated white count and did have a positive stool for C. difficile and likely acute C. difficile colitis. 2patient did have slight improvement with decrease in frequency of diarrhea continue with the deficid if did have overall improvement she'll be able to go back to halfway on oral deficid and to use Questran as needed Time with Patient: Less than 30
[2022-10-23] MEDS: SODIUM CHLORIDE 0.45% 1,000 ML IV SCH (04:03)
[2022-10-23 06:17] LABS: Glucose,Whole Blood 140 mg/dL (70-110)
[2022-10-23] MEDS: INSULIN ASPART (NovoLOG) 100 UNIT/ML VIAL SQ SCH ×4 (06:17→21:07)
[2022-10-23 09:01] LABS: Albumin 2.4 g/dL (3.5-5.0); Calcium 7.8 mg/dL (8.4-10.2); Potassium 4.1 mmol/L (3.5-5.1); Total Bilirubin 0.3 mg/dL (0.2-1.3); Total Protein 4.5 g/dL (6.3-8.2)
[2022-10-23] MEDS: HEPARIN SODIUM,PORCINE/PF 5,000 UNIT/0.5 ML SYRINGE SQ SCH ×2 (09:33→21:08)
[2022-10-23] MEDS: CLOPIDOGREL 75 MG TAB PO SCH (09:33)
[2022-10-23] MEDS: MEMANTINE 10 MG TAB PO SCH ×2 (09:33→21:07)
[2022-10-23] MEDS: FERROUS SULFATE 325 MG TAB PO SCH (09:33)
[2022-10-23] MEDS: FIDAXOMICIN 200 MG TABLET PO SCH ×2 (09:34→21:08)
[2022-10-23] MEDS: DONEPEZIL 5 MG TAB PO SCH (09:34)
[2022-10-23] MEDS: CHOLESTYRAMINE (WITH SUGAR) 4 GM PACKET PO SCH ×2 (11:36→17:20)
[2022-10-23 11:58] LABS: Glucose,Whole Blood 159 mg/dL (70-110)
--- NOTE | 2022-10-23 13:51 | P.PN ---
Subjective Progress Note Date: 10/23/22 Principal diagnosis: C. diff colitis Patient is a 87-year-old female with a past medical history significant for atrial fibrillation heart failure hypertension diabetes mellitus patient was sent in from local retirement for evaluation of weakness and diarrhea apparently patient was noticed to have some mental status changes , patient has been diagnosed with C. diff colitis on today's evaluation that is 10/23/2022, the patient remains to be afebrile, the patient is breathing comfortably on room air, patient denies chest pain or shortness of breath , the patient diarrhea has slowed down with one episode this morning per the nursing staff no blood or mucus in the stool Objective - Vital Signs Vital signs: Vital Signs Temp 97.5 F L 10/23/22 09:30 Pulse 71 10/23/22 11:37 Resp 17 10/23/22 11:37 BP 144/63 10/23/22 11:37 Pulse Ox 96 10/23/22 11:37 FiO2 Intake & Output 10/22/22 10/23/22 10/23/22 18:59 06:59 18:59 Intake Total 240 480 Output Total 550 1180 600 Balance -310 -1180 -120 Intake: Oral 240 480 Output: Urine 1180 600 Stool 550 Other: Voiding Method Indwelling Catheter Indwelling Catheter Indwelling Catheter # Bowel Movements 1 1 - Exam GENERAL DESCRIPTION: An elderly female lying in bed in no distress RESPIRATORY SYSTEM: Unlabored breathing , decreased breath sounds at bases HEART: S1 S2 regular rate and rhythm , ABDOMEN: Soft , no tenderness EXTREMITIES: No edema feet - Labs CBC & Chem 7: 10/22/22 14:18 10/23/22 08:21 Labs: Abnormal Lab Results - Last 24 Hours (Table) 10/22/22 10/22/22 10/22/22 Range/Units 14:18 14:18 17:07 RBC 3.45 L (3.80-5.40) m/uL Hgb 11.0 L (11.4-16.0) gm/dL MCV 102.0 H (80.0-100.0) fL Lymphocytes # 0.8 L (1.0-4.8) k/uL Sodium 136 L (137-145) mmol/L Chloride 113 H (98-107) mmol/L Carbon Dioxide 18 L (22-30) mmol/L BUN 25 H (7-17) mg/dL Creatinine 1.33 H (0.52-1.04) mg/dL Glucose 171 H (74-99) mg/dL POC Glucose (mg/dL) 162 H (70-110) mg/dL Calcium 8.1 L (8.4-10.2) mg/dL Total Protein (6.3-8.2) g/dL Albumin (3.5-5.0) g/dL 10/22/22 10/23/22 10/23/22 Range/Units 20:05 06:15 08:21 RBC (3.80-5.40) m/uL Hgb (11.4-16.0) gm/dL MCV (80.0-100.0) fL Lymphocytes # (1.0-4.8) k/uL Sodium (137-145) mmol/L Chloride 112 H (98-107) mmol/L Carbon Dioxide 18 L (22-30) mmol/L BUN 21 H (7-17) mg/dL Creatinine 1.12 H (0.52-1.04) mg/dL Glucose 135 H (74-99) mg/dL POC Glucose (mg/dL) 137 H 140 H (70-110) mg/dL Calcium 7.8 L (8.4-10.2) mg/dL Total Protein 4.5 L (6.3-8.2) g/dL Albumin 2.4 L (3.5-5.0) g/dL 10/23/22 Range/Units 11:55 RBC (3.80-5.40) m/uL Hgb (11.4-16.0) gm/dL MCV (80.0-100.0) fL Lymphocytes # (1.0-4.8) k/uL Sodium (137-145) mmol/L Chloride (98-107) mmol/L Carbon Dioxide (22-30) mmol/L BUN (7-17) mg/dL Creatinine (0.52-1.04) mg/dL Glucose (74-99) mg/dL POC Glucose (mg/dL) 159 H (70-110) mg/dL Calcium (8.4-10.2) mg/dL Total Protein (6.3-8.2) g/dL Albumin (3.5-5.0) g/dL Microbiology - Last 24 Hours (Table) 10/17/22 16:25 Blood Culture - Preliminary Blood No Growth after 120 hours 10/17/22 16:10 Blood Culture - Preliminary Blood No Growth after 120 hours Assessment and Plan (1) C. difficile colitis Current Visit: Yes Status: Acute Code(s): A04.72 - ENTEROCOLITIS D/T CLOSTRIDIUM DIFFICILE, NOT SPCF RECUR SNOMED Code(s): 127871948 Plan: 1patient presented to hospital with diarrhea and mental status changes did have elevated white count and did have a positive stool for C. difficile and likely acute C. difficile colitis. 2patient did have slight improvement with decrease in frequency of diarrhea, patient to continue with the deficid to finish a ten-day course of therapy along with Questran for symptomatic relief patient encouraged to increase her probiotic intake Family the bedside questions concerned were answered Time with Patient: Less than 30
[2022-10-23 17:11] LABS: Glucose,Whole Blood 167 mg/dL (70-110)
[2022-10-23 20:59] LABS: Glucose,Whole Blood 169 mg/dL (70-110)
[2022-10-23] MEDS: FAMOTIDINE 20 MG TAB PO SCH (21:07)
[2022-10-23] MEDS: ATORVASTATIN 10 MG TAB PO SCH (21:07)
[2022-10-23] MEDS: MELATONIN 1 MG TAB PO SCH (21:08)
[2022-10-24 06:21] LABS: Glucose,Whole Blood 132 mg/dL (70-110)
[2022-10-24] MEDS: INSULIN ASPART (NovoLOG) 100 UNIT/ML VIAL SQ SCH ×4 (06:29→20:30)
[2022-10-24] MEDS: SODIUM CHLORIDE 0.45% 1,000 ML IV SCH ×2 (06:30→15:08)
[2022-10-24 07:50] LABS: Basophils % (A) 0 %; Eosinophils # (A) 0.1 k/uL (0-0.7); Eosinophils % (A) 1 %; HCT 30.4 % (34.0-46.0); HGB 9.9 gm/dL (11.4-16.0); Hypochromasia Moderate; Lymphocytes % (A) 11 %; MCH 32.2 pg (25.0-35.0); MCHC 32.6 g/dL (31.0-37.0); MCV 98.8 fL (80.0-100.0); Mean Platelet Volume 9.1; Monocytes # (A) 0.4 k/uL (0-1.0); Monocytes % (A) 5 %; Neutrophils # (A) 7.4 k/uL (1.3-7.7); Neutrophils % (A) 82 %; Platelet Count 251 k/uL (150-450); RBC 3.08 m/uL (3.80-5.40); RDW 13.2 % (11.5-15.5); WBC 9.1 k/uL (3.8-10.6)
[2022-10-24 08:06] LABS: Calcium 7.8 mg/dL (8.4-10.2); Potassium 4.3 mmol/L (3.5-5.1)
[2022-10-24] MEDS: MEMANTINE 10 MG TAB PO SCH ×2 (09:23→20:30)
[2022-10-24] MEDS: CLOPIDOGREL 75 MG TAB PO SCH (09:23)
[2022-10-24] MEDS: DONEPEZIL 5 MG TAB PO SCH (09:23)
[2022-10-24] MEDS: FERROUS SULFATE 325 MG TAB PO SCH (09:23)
[2022-10-24] MEDS: HEPARIN SODIUM,PORCINE/PF 5,000 UNIT/0.5 ML SYRINGE SQ SCH ×2 (09:24→20:30)
[2022-10-24] MEDS: FIDAXOMICIN 200 MG TABLET PO SCH ×2 (09:24→20:29)
[2022-10-24] MEDS: CHOLESTYRAMINE (WITH SUGAR) 4 GM PACKET PO SCH ×2 (11:01→17:01)
[2022-10-24 11:45] LABS: Glucose,Whole Blood 190 mg/dL (70-110)
--- NOTE | 2022-10-24 14:33 | P.PN ---
Subjective Progress Note Date: 10/24/22 Principal diagnosis: C. diff colitis Patient is a 87-year-old female with a past medical history significant for atrial fibrillation heart failure hypertension diabetes mellitus patient was sent in from local long-term for evaluation of weakness and diarrhea apparently patient was noticed to have some mental status changes , patient has been diagnosed with C. diff colitis on today's evaluation that is 10/24/2022, the patient continues to be afebrile, the patient is breathing comfortably on room air, patient denies chest pain or shortness of breath and no significant cough , the patient diarrhea has slowed down, patient did have one episode this morning Objective - Vital Signs Vital signs: Vital Signs Temp 98.3 F 10/24/22 09:18 Pulse 70 10/24/22 14:26 Resp 18 10/24/22 14:26 BP 140/65 10/24/22 13:07 Pulse Ox 96 10/24/22 13:07 FiO2 Intake & Output 10/23/22 10/24/22 10/24/22 18:59 06:59 18:59 Intake Total 480 360 Output Total 600 500 275 Balance -120 -500 85 Intake: Oral 480 360 Output: Urine 600 500 Stool 275 Other: Voiding Method Indwelling Catheter Indwelling Catheter Indwelling Catheter # Bowel Movements 1 1 2 - Exam GENERAL DESCRIPTION: An elderly female lying in bed in no distress RESPIRATORY SYSTEM: Unlabored breathing , decreased breath sounds at bases HEART: S1 S2 regular rate and rhythm , ABDOMEN: Soft , no tenderness EXTREMITIES: No edema feet - Labs CBC & Chem 7: 10/24/22 07:19 10/24/22 07:19 Labs: Abnormal Lab Results - Last 24 Hours (Table) 10/23/22 10/23/22 10/24/22 Range/Units 17:07 20:58 06:20 RBC (3.80-5.40) m/uL Hgb (11.4-16.0) gm/dL Hct (34.0-46.0) % Sodium (137-145) mmol/L Chloride (98-107) mmol/L Carbon Dioxide (22-30) mmol/L Glucose (74-99) mg/dL POC Glucose (mg/dL) 167 H 169 H 132 H (70-110) mg/dL Calcium (8.4-10.2) mg/dL 10/24/22 10/24/22 10/24/22 Range/Units 07:19 07:19 11:43 RBC 3.08 L (3.80-5.40) m/uL Hgb 9.9 L (11.4-16.0) gm/dL Hct 30.4 L (34.0-46.0) % Sodium 135 L (137-145) mmol/L Chloride 114 H (98-107) mmol/L Carbon Dioxide 17 L (22-30) mmol/L Glucose 132 H (74-99) mg/dL POC Glucose (mg/dL) 190 H (70-110) mg/dL Calcium 7.8 L (8.4-10.2) mg/dL Microbiology - Last 24 Hours (Table) 10/17/22 16:25 Blood Culture - Final Blood No Growth after 144 hours 10/17/22 16:10 Blood Culture - Final Blood No Growth after 144 hours Assessment and Plan (1) C. difficile colitis Current Visit: Yes Status: Acute Code(s): A04.72 - ENTEROCOLITIS D/T CLOSTRIDIUM DIFFICILE, NOT SPCF RECUR SNOMED Code(s): 450819608 Plan: 1patient presented to hospital with diarrhea and mental status changes did have elevated white count and did have a positive stool for C. difficile and likely acute C. difficile colitis. 2patient continue to show clinical improvement with decrease in frequency of diarrhea, patient to continue with the deficid to finish a ten-day course of therapy along with Questran for symptomatic relief 3- patient has been encouraged again to increase her probiotic/yogurt intake Family the bedside questions concerned were answered Time with Patient: Less than 30
[2022-10-24 16:50] LABS: Glucose,Whole Blood 163 mg/dL (70-110)
[2022-10-24 20:12] LABS: Glucose,Whole Blood 177 mg/dL (70-110)
[2022-10-24] MEDS: MELATONIN 1 MG TAB PO SCH (20:29)
[2022-10-24] MEDS: ATORVASTATIN 10 MG TAB PO SCH (20:30)
[2022-10-24] MEDS: FAMOTIDINE 20 MG TAB PO SCH (20:30)
--- NOTE | 2022-10-25 00:07 | P.PN ---
Subjective Progress Note Date: 10/22/22 Patient is a pleasantly confused 87-year-old white female who was admitted with C. difficile colitis from recent hospitalization where she was treated with antibiotics 10/22/2022 Patient is currently resting in bed. Awake alert and oriented x3. Pulmonary on room air. No complaints of cough or sputum production. Continues to have diarrhea. Fecal management system is in place. Vancomycin has been changed to fidaxomicin as per ID recommendations. No longer has abdominal pain. No chest pain or shortness of breath. Laboratory data showed WBC 6.4 hemoglobin 9.0 and platelets 243 sodium 136 potassium 4.4 chloride 113 bicarb is 18 BUN 25 creatinine 1.33 and blood sugar is 171 and calcium 8.1. Current medications reviewed. Objective - Vital Signs Vital signs: Vital Signs Temp 98.2 F 10/22/22 19:56 Pulse 75 10/22/22 19:56 Resp 16 10/22/22 19:56 BP 148/68 10/22/22 19:56 Pulse Ox 97 10/22/22 19:56 FiO2 Intake & Output 10/22/22 10/22/22 10/23/22 06:59 18:59 06:59 Intake Total 240 Output Total 1150 550 Balance -1150 -310 Intake: Oral 240 Output: Urine 550 Stool 600 550 Other: Voiding Method Indwelling Catheter Indwelling Catheter Indwelling Catheter - Exam - Exam GENERAL: Sitting up in bed, alert and oriented x3,NAD. HEENT: Pupils are round and equally reacting to light. EOMI. No scleral icterus. No conjunctival pallor. Normocephalic, atraumatic. Neck supple, no JVD CARDIOVASCULAR: S1 and S2 present. No murmurs, rubs, or gallops. PULMONARY: Unlabored ,Chest is clear to auscultation, no wheezing or crackles. ABDOMEN: Soft, nontender, nondistended, normoactive bowel sounds. No palpable organomegaly. MUSCULOSKELETAL: No joint swelling or deformity. EXTREMITIES: No cyanosis, clubbing, or pedal edema. NEUROLOGICAL: Gross neurological examination did not reveal any focal deficits. SKIN: Warm and dry, No rashes. - Labs CBC & Chem 7: 10/24/22 07:19 10/24/22 07:19 Labs: Abnormal Lab Results - Last 24 Hours (Table) 10/22/22 10/22/22 10/22/22 Range/Units 06:37 11:52 14:18 RBC 3.45 L (3.80-5.40) m/uL Hgb 11.0 L (11.4-16.0) gm/dL MCV 102.0 H (80.0-100.0) fL Lymphocytes # 0.8 L (1.0-4.8) k/uL Sodium (137-145) mmol/L Chloride (98-107) mmol/L Carbon Dioxide (22-30) mmol/L BUN (7-17) mg/dL Creatinine (0.52-1.04) mg/dL Glucose (74-99) mg/dL POC Glucose (mg/dL) 152 H 140 H (70-110) mg/dL Calcium (8.4-10.2) mg/dL 10/22/22 10/22/22 10/22/22 Range/Units 14:18 17:07 20:05 RBC (3.80-5.40) m/uL Hgb (11.4-16.0) gm/dL MCV (80.0-100.0) fL Lymphocytes # (1.0-4.8) k/uL Sodium 136 L (137-145) mmol/L Chloride 113 H (98-107) mmol/L Carbon Dioxide 18 L (22-30) mmol/L BUN 25 H (7-17) mg/dL Creatinine 1.33 H (0.52-1.04) mg/dL Glucose 171 H (74-99) mg/dL POC Glucose (mg/dL) 162 H 137 H (70-110) mg/dL Calcium 8.1 L (8.4-10.2) mg/dL Microbiology - Last 24 Hours (Table) 10/17/22 16:25 Blood Culture - Preliminary Blood No Growth after 120 hours 10/17/22 16:10 Blood Culture - Preliminary Blood No Growth after 120 hours Assessment and Plan Assessment: Acute C. difficile colitis Hypertension Diabetes type 2 [id number] Dementia DVT prophylaxis with heparin subcu Plan: Patient will be continued IV hydration and vancomycin changed to Dificid. ID is on board. Continue with [facility]. Current home medications and follow-up closely. Expect discharge back to ECF once diarrhea improves.
--- NOTE | 2022-10-25 00:09 | P.PN ---
Subjective Progress Note Date: 10/23/22 Patient is a pleasantly confused 87-year-old white female who was admitted with C. difficile colitis from recent hospitalization where she was treated with antibiotics 10/22/2022 Patient is currently resting in bed. Awake alert and oriented x3. Pulmonary on room air. No complaints of cough or sputum production. Continues to have diarrhea. Fecal management system is in place. Vancomycin has been changed to fidaxomicin as per ID recommendations. No longer has abdominal pain. No chest pain or shortness of breath. Laboratory data showed WBC 6.4 hemoglobin 9.0 and platelets 243 sodium 136 potassium 4.4 chloride 113 bicarb is 18 BUN 25 creatinine 1.33 and blood sugar is 171 and calcium 8.1. 10/23/2022 Patient is currently resting in bed. Awake alert and oriented x3. No complaints of chest pain or shortness of breath. No abdominal pain. Still having diarrhea but frequency is coming down. Patient has been afebrile. Currently fidaxomicin. Laboratory data showed sodium 138 potassium 4.1 chloride 112 bicarb is 18 BUN 21 creatinine 1.12 and blood sugar is 135 calcium 7.8 Current medications reviewed. Objective - Vital Signs Vital signs: Vital Signs Temp 98.4 F 10/23/22 19:29 Pulse 75 10/23/22 19:29 Resp 16 10/23/22 19:29 BP 169/74 10/23/22 19:29 Pulse Ox 95 10/23/22 19:29 FiO2 Intake & Output 10/23/22 10/23/22 10/24/22 06:59 18:59 06:59 Intake Total 480 Output Total 1180 600 Balance -1180 -120 Intake: Oral 480 Output: Urine 1180 600 Other: Voiding Method Indwelling Catheter Indwelling Catheter # Bowel Movements 1 1 - Exam - Exam GENERAL: Sitting up in bed, alert and oriented x3,NAD. HEENT: Pupils are round and equally reacting to light. EOMI. No scleral icterus. No conjunctival pallor. Normocephalic, atraumatic. Neck supple, no JVD CARDIOVASCULAR: S1 and S2 present. No murmurs, rubs, or gallops. PULMONARY: Unlabored ,Chest is clear to auscultation, no wheezing or crackles. ABDOMEN: Soft, nontender, nondistended, normoactive bowel sounds. No palpable organomegaly. MUSCULOSKELETAL: No joint swelling or deformity. EXTREMITIES: No cyanosis, clubbing, or pedal edema. NEUROLOGICAL: Gross neurological examination did not reveal any focal deficits. SKIN: Warm and dry, No rashes. - Labs CBC & Chem 7: 10/24/22 07:19 10/24/22 07:19 Labs: Abnormal Lab Results - Last 24 Hours (Table) 10/23/22 10/23/22 10/23/22 Range/Units 06:15 08:21 11:55 Chloride 112 H (98-107) mmol/L Carbon Dioxide 18 L (22-30) mmol/L BUN 21 H (7-17) mg/dL Creatinine 1.12 H (0.52-1.04) mg/dL Glucose 135 H (74-99) mg/dL POC Glucose (mg/dL) 140 H 159 H (70-110) mg/dL Calcium 7.8 L (8.4-10.2) mg/dL Total Protein 4.5 L (6.3-8.2) g/dL Albumin 2.4 L (3.5-5.0) g/dL 10/23/22 10/23/22 Range/Units 17:07 20:58 Chloride (98-107) mmol/L Carbon Dioxide (22-30) mmol/L BUN (7-17) mg/dL Creatinine (0.52-1.04) mg/dL Glucose (74-99) mg/dL POC Glucose (mg/dL) 167 H 169 H (70-110) mg/dL Calcium (8.4-10.2) mg/dL Total Protein (6.3-8.2) g/dL Albumin (3.5-5.0) g/dL Microbiology - Last 24 Hours (Table) 10/17/22 16:25 Blood Culture - Final Blood No Growth after 144 hours 10/17/22 16:10 Blood Culture - Final Blood No Growth after 144 hours Assessment and Plan Assessment: Acute C. difficile colitis Hypertension Diabetes type 2 [id number] Dementia DVT prophylaxis with heparin subcu Plan: Patient will be continued IV hydration and vancomycin changed to Dificid. diarrhea is improving. ID is on board. Continue with Questran. Current home medications and follow-up closely. Expect discharge back to [facility] once diarrhea improves.
--- NOTE | 2022-10-25 00:10 | P.PN ---
Subjective Progress Note Date: 10/24/22 Patient is a pleasantly confused 87-year-old white female who was admitted with C. difficile colitis from recent hospitalization where she was treated with antibiotics 10/22/2022 Patient is currently resting in bed. Awake alert and oriented x3. Pulmonary on room air. No complaints of cough or sputum production. Continues to have diarrhea. Fecal management system is in place. Vancomycin has been changed to fidaxomicin as per ID recommendations. No longer has abdominal pain. No chest pain or shortness of breath. Laboratory data showed WBC 6.4 hemoglobin 9.0 and platelets 243 sodium 136 potassium 4.4 chloride 113 bicarb is 18 BUN 25 creatinine 1.33 and blood sugar is 171 and calcium 8.1. 10/23/2022 Patient is currently resting in bed. Awake alert and oriented x3. No complaints of chest pain or shortness of breath. No abdominal pain. Still having diarrhea but frequency is coming down. Patient has been afebrile. Currently fidaxomicin. Laboratory data showed sodium 138 potassium 4.1 chloride 112 bicarb is 18 BUN 21 creatinine 1.12 and blood sugar is 135 calcium 7.8 10/24/2022 patient is currently resting in bed. Awake alert and oriented. No complaints of chest pain or shortness of breath. No nausea vomiting or abdominal pain. Diarrhea is slowing down. No complaints of abdominal pain. No fever no chills. Patient is currently on room air. Hemodynamically stable. Current medications reviewed. Objective - Vital Signs Vital signs: Vital Signs Temp 98.3 F 10/24/22 09:18 Pulse 72 10/24/22 16:58 Resp 18 10/24/22 16:58 BP 154/70 10/24/22 16:58 Pulse Ox 96 10/24/22 16:58 FiO2 Intake & Output 10/24/22 10/24/22 10/25/22 06:59 18:59 06:59 Intake Total 540 Output Total 500 625 Balance -500 -85 Intake: Oral 540 Output: Urine 500 350 Stool 275 Other: Voiding Method Indwelling Catheter Indwelling Catheter # Bowel Movements 1 2 - Exam - Exam GENERAL: Sitting up in bed, alert and oriented x3,NAD. HEENT: Pupils are round and equally reacting to light. EOMI. No scleral icterus. No conjunctival pallor. Normocephalic, atraumatic. Neck supple, no JVD CARDIOVASCULAR: S1 and S2 present. No murmurs, rubs, or gallops. PULMONARY: Unlabored ,Chest is clear to auscultation, no wheezing or crackles. ABDOMEN: Soft, nontender, nondistended, normoactive bowel sounds. No palpable organomegaly. MUSCULOSKELETAL: No joint swelling or deformity. EXTREMITIES: No cyanosis, clubbing, or pedal edema. NEUROLOGICAL: Gross neurological examination did not reveal any focal deficits. SKIN: Warm and dry, No rashes. - Labs CBC & Chem 7: 10/24/22 07:19 10/24/22 07:19 Labs: Abnormal Lab Results - Last 24 Hours (Table) 10/24/22 10/24/22 10/24/22 Range/Units 06:20 07:19 07:19 RBC 3.08 L (3.80-5.40) m/uL Hgb 9.9 L (11.4-16.0) gm/dL Hct 30.4 L (34.0-46.0) % Sodium 135 L (137-145) mmol/L Chloride 114 H (98-107) mmol/L Carbon Dioxide 17 L (22-30) mmol/L Glucose 132 H (74-99) mg/dL POC Glucose (mg/dL) 132 H (70-110) mg/dL Calcium 7.8 L (8.4-10.2) mg/dL 10/24/22 10/24/22 10/24/22 Range/Units 11:43 16:47 20:10 RBC (3.80-5.40) m/uL Hgb (11.4-16.0) gm/dL Hct (34.0-46.0) % Sodium (137-145) mmol/L Chloride (98-107) mmol/L Carbon Dioxide (22-30) mmol/L Glucose (74-99) mg/dL POC Glucose (mg/dL) 190 H 163 H 177 H (70-110) mg/dL Calcium (8.4-10.2) mg/dL Microbiology - Last 24 Hours (Table) 10/17/22 16:25 Blood Culture - Final Blood No Growth after 144 hours 10/17/22 16:10 Blood Culture - Final Blood No Growth after 144 hours Assessment and Plan Assessment: Acute C. difficile colitis Hypertension Diabetes type 2 [id number] Dementia DVT prophylaxis with heparin subcu Plan: Patient will be continued IV hydration and vancomycin changed to Dificid. diarrhea is improving. ID is on board. Continue with [facility]. Current home medications and follow-up closely. Expect discharge back to ECF once diarrhea improves.
[2022-10-25] MEDS: SODIUM CHLORIDE 0.45% 1,000 ML IV SCH ×3 (04:31→16:44)
[2022-10-25 06:14] LABS: Glucose,Whole Blood 153 mg/dL (70-110)
[2022-10-25] MEDS: INSULIN ASPART (NovoLOG) 100 UNIT/ML VIAL SQ SCH ×4 (06:27→20:54)
[2022-10-25 09:20] LABS: Calcium 8.1 mg/dL (8.4-10.2); Potassium 4.4 mmol/L (3.5-5.1)
[2022-10-25] MEDS: CHOLESTYRAMINE (WITH SUGAR) 4 GM PACKET PO SCH ×2 (09:42→16:43)
[2022-10-25] MEDS: FERROUS SULFATE 325 MG TAB PO SCH (09:42)
[2022-10-25] MEDS: MEMANTINE 10 MG TAB PO SCH ×2 (09:42→20:53)
[2022-10-25] MEDS: HEPARIN SODIUM,PORCINE/PF 5,000 UNIT/0.5 ML SYRINGE SQ SCH ×2 (09:42→20:54)
[2022-10-25] MEDS: CLOPIDOGREL 75 MG TAB PO SCH (09:42)
[2022-10-25 12:16] LABS: Glucose,Whole Blood 165 mg/dL (70-110)
[2022-10-25] MEDS: FIDAXOMICIN 200 MG TABLET PO SCH ×2 (13:13→20:54)
[2022-10-25] MEDS: DONEPEZIL 5 MG TAB PO SCH (13:13)
--- NOTE | 2022-10-25 14:16 | P.PN ---
Subjective Progress Note Date: 10/25/22 Principal diagnosis: C. diff colitis Patient is a 87-year-old female with a past medical history significant for atrial fibrillation heart failure hypertension diabetes mellitus patient was sent in from local care home for evaluation of weakness and diarrhea apparently patient was noticed to have some mental status changes , patient has been diagnosed with C. diff colitis on today's evaluation that is 10/25/2022, the patient remains to be afebrile, the patient is breathing comfortably on room air, patient denies chest pain or shortness of breath and denies any cough or sputum production, the patient diarrhea has slowed down with one episode this morning and denies abdominal pain Objective - Vital Signs Vital signs: Vital Signs Temp 97.5 F L 10/25/22 08:00 Pulse 68 10/25/22 08:00 Resp 16 10/25/22 08:00 BP 119/58 10/25/22 08:00 Pulse Ox 95 10/25/22 08:00 FiO2 Intake & Output 10/24/22 10/25/22 10/25/22 18:59 06:59 18:59 Intake Total 540 180 Output Total 625 600 550 Balance -85 -600 -370 Intake: Oral 540 180 Output: Urine 350 600 550 Stool 275 Other: Voiding Method Indwelling Catheter Indwelling Catheter Indwelling Catheter # Bowel Movements 2 1 1 - Exam GENERAL DESCRIPTION: An elderly female lying in bed in no distress RESPIRATORY SYSTEM: Unlabored breathing , decreased breath sounds at bases HEART: S1 S2 regular rate and rhythm , ABDOMEN: Soft , no tenderness EXTREMITIES: No edema feet - Labs CBC & Chem 7: 10/24/22 07:19 10/25/22 08:42 Labs: Abnormal Lab Results - Last 24 Hours (Table) 10/24/22 10/24/22 10/25/22 Range/Units 16:47 20:10 06:12 Chloride (98-107) mmol/L Carbon Dioxide (22-30) mmol/L Glucose (74-99) mg/dL POC Glucose (mg/dL) 163 H 177 H 153 H (70-110) mg/dL Calcium (8.4-10.2) mg/dL 10/25/22 10/25/22 Range/Units 08:42 12:14 Chloride 117 H (98-107) mmol/L Carbon Dioxide 17 L (22-30) mmol/L Glucose 147 H (74-99) mg/dL POC Glucose (mg/dL) 165 H (70-110) mg/dL Calcium 8.1 L (8.4-10.2) mg/dL Assessment and Plan (1) C. difficile colitis Current Visit: Yes Status: Acute Code(s): A04.72 - ENTEROCOLITIS D/T CLOSTRIDIUM DIFFICILE, NOT SPCF RECUR SNOMED Code(s): 460029151 Plan: 1patient presented to hospital with diarrhea and mental status changes did have elevated white count and did have a positive stool for C. difficile and likely acute C. difficile colitis. 2patient has been encouraged again to increase her probiotic/yogurt intake 3-patient slowly clinically improving, patient to continue with the deficid to finish a ten-day course of therapy along with Questran for symptomatic relief Time with Patient: Less than 30
[2022-10-25 16:38] LABS: Glucose,Whole Blood 140 mg/dL (70-110)
[2022-10-25 19:53] LABS: Glucose,Whole Blood 170 mg/dL (70-110)
[2022-10-25] MEDS: ATORVASTATIN 10 MG TAB PO SCH (20:53)
[2022-10-25] MEDS: FAMOTIDINE 20 MG TAB PO SCH (20:53)
[2022-10-25] MEDS: MELATONIN 1 MG TAB PO SCH (20:54)
[2022-10-26 06:14] LABS: Glucose,Whole Blood 136 mg/dL (70-110)
[2022-10-26] MEDS: INSULIN ASPART (NovoLOG) 100 UNIT/ML VIAL SQ SCH ×4 (06:45→21:13)
[2022-10-26] MEDS: SODIUM CHLORIDE 0.45% 1,000 ML IV SCH ×2 (07:58→17:59)
[2022-10-26] MEDS: FERROUS SULFATE 325 MG TAB PO SCH (08:37)
[2022-10-26] MEDS: HEPARIN SODIUM,PORCINE/PF 5,000 UNIT/0.5 ML SYRINGE SQ SCH ×2 (08:37→21:13)
[2022-10-26] MEDS: FIDAXOMICIN 200 MG TABLET PO SCH ×2 (08:37→21:13)
[2022-10-26] MEDS: MEMANTINE 10 MG TAB PO SCH ×2 (08:37→21:12)
[2022-10-26] MEDS: CLOPIDOGREL 75 MG TAB PO SCH (08:37)
[2022-10-26] MEDS: DONEPEZIL 5 MG TAB PO SCH (08:37)
[2022-10-26 11:37] LABS: Glucose,Whole Blood 151 mg/dL (70-110)
[2022-10-26] MEDS: CHOLESTYRAMINE (WITH SUGAR) 4 GM PACKET PO SCH ×2 (11:47→18:02)
[2022-10-26 16:25] LABS: Glucose,Whole Blood 130 mg/dL (70-110)
[2022-10-26 19:39] LABS: Glucose,Whole Blood 159 mg/dL (70-110)
[2022-10-26] MEDS: ATORVASTATIN 10 MG TAB PO SCH (21:12)
[2022-10-26] MEDS: MELATONIN 1 MG TAB PO SCH (21:12)
[2022-10-26] MEDS: FAMOTIDINE 20 MG TAB PO SCH (21:12)
--- NOTE | 2022-10-26 22:35 | P.PN ---
Subjective Progress Note Date: 10/26/22 Principal diagnosis: C. diff colitis Patient is a 87-year-old female with a past medical history significant for atrial fibrillation heart failure hypertension diabetes mellitus patient was sent in from local group home for evaluation of weakness and diarrhea apparently patient was noticed to have some mental status changes , patient has been diagnosed with C. diff colitis on today's evaluation that is 10/26/2022, the patient continues to be afebrile, the patient is breathing comfortably on room air, patient denies chest pain or shortness of breath and denies any cough or sputum production, the patient apparently did have one large loose stool this morning no blood or mucus in the stool Objective - Vital Signs Vital signs: Vital Signs Temp 98.4 F 10/26/22 08:35 Pulse 72 10/26/22 08:35 Resp 18 10/26/22 08:35 BP 118/57 10/26/22 08:35 Pulse Ox 97 10/26/22 08:35 FiO2 Intake & Output 10/25/22 10/26/22 10/26/22 18:59 06:59 18:59 Intake Total 540 180 Output Total 550 500 Balance -10 -500 180 Intake: Oral 540 180 Output: Urine 550 500 Other: Voiding Method Indwelling Catheter Indwelling Catheter Indwelling Catheter # Bowel Movements 1 1 1 - Exam GENERAL DESCRIPTION: An elderly female lying in bed in no distress RESPIRATORY SYSTEM: Unlabored breathing , decreased breath sounds at bases HEART: S1 S2 regular rate and rhythm , ABDOMEN: Soft , no tenderness EXTREMITIES: No edema feet - Labs CBC & Chem 7: 10/24/22 07:19 10/25/22 08:42 Labs: Abnormal Lab Results - Last 24 Hours (Table) 10/25/22 10/25/22 10/26/22 Range/Units 16:37 19:52 06:13 POC Glucose (mg/dL) 140 H 170 H 136 H (70-110) mg/dL 10/26/22 Range/Units 11:35 POC Glucose (mg/dL) 151 H (70-110) mg/dL Assessment and Plan (1) C. difficile colitis Current Visit: Yes Status: Acute Code(s): A04.72 - ENTEROCOLITIS D/T CLOSTRIDIUM DIFFICILE, NOT SPCF RECUR SNOMED Code(s): 114098041 Plan: 1patient presented to hospital with diarrhea and mental status changes did have elevated white count and did have a positive stool for C. difficile and likely acute C. difficile colitis. 2patient has been encouraged again to increase her probiotic/yogurt intake, advised to milk intake 3-patient will be continued on deficid to finish a ten-day course of therapy along with Questran for symptomatic relief Time with Patient: Less than 30
[2022-10-27 05:36] LABS: Glucose,Whole Blood 140 mg/dL (70-110)
[2022-10-27] MEDS: INSULIN ASPART (NovoLOG) 100 UNIT/ML VIAL SQ SCH ×2 (05:52→12:18)
[2022-10-27 08:49] LABS: Basophils # (A) 0.1 k/uL (0-0.2); Basophils % (A) 1 %; Eosinophils # (A) 0.1 k/uL (0-0.7); Eosinophils % (A) 1 %; HCT 32.9 % (34.0-46.0); HGB 10.3 gm/dL (11.4-16.0); Hypochromasia Marked; Lymphocytes # (A) 0.8 k/uL (1.0-4.8); Lymphocytes % (A) 9 %; MCH 32.1 pg (25.0-35.0); MCHC 31.2 g/dL (31.0-37.0); MCV 102.9 fL (80.0-100.0); Macrocytosis Slight; Mean Platelet Volume 8.5; Monocytes # (A) 0.5 k/uL (0-1.0); Monocytes % (A) 5 %; Neutrophils # (A) 7.8 k/uL (1.3-7.7); Neutrophils % (A) 83 %; Platelet Count 260 k/uL (150-450); RBC 3.19 m/uL (3.80-5.40); WBC 9.5 k/uL (3.8-10.6)
[2022-10-27 09:08] LABS: Potassium 4.4 mmol/L (3.5-5.1)
[2022-10-27] MEDS: CHOLESTYRAMINE (WITH SUGAR) 4 GM PACKET PO SCH (09:52)
[2022-10-27] MEDS: FIDAXOMICIN 200 MG TABLET PO SCH (09:53)
[2022-10-27] MEDS: DONEPEZIL 5 MG TAB PO SCH (09:53)
[2022-10-27] MEDS: CLOPIDOGREL 75 MG TAB PO SCH (09:53)
[2022-10-27] MEDS: FERROUS SULFATE 325 MG TAB PO SCH (09:54)
[2022-10-27] MEDS: MEMANTINE 10 MG TAB PO SCH (09:54)
[2022-10-27] MEDS: HEPARIN SODIUM,PORCINE/PF 5,000 UNIT/0.5 ML SYRINGE SQ SCH (09:54)
[2022-10-27] MEDS: SODIUM CHLORIDE 0.45% 1,000 ML IV SCH (10:02)
[2022-10-27 11:20] VITALS: PULSE 72
--- NOTE | 2022-10-27 12:06 | P.PN ---
Subjective Progress Note Date: 10/25/22 Patient is a pleasantly confused 87-year-old white female who was admitted with C. difficile colitis from recent hospitalization where she was treated with antibiotics 10/22/2022 Patient is currently resting in bed. Awake alert and oriented x3. Pulmonary on room air. No complaints of cough or sputum production. Continues to have diarrhea. Fecal management system is in place. Vancomycin has been changed to fidaxomicin as per ID recommendations. No longer has abdominal pain. No chest pain or shortness of breath. Laboratory data showed WBC 6.4 hemoglobin 9.0 and platelets 243 sodium 136 potassium 4.4 chloride 113 bicarb is 18 BUN 25 creatinine 1.33 and blood sugar is 171 and calcium 8.1. 10/23/2022 Patient is currently resting in bed. Awake alert and oriented x3. No complaints of chest pain or shortness of breath. No abdominal pain. Still having diarrhea but frequency is coming down. Patient has been afebrile. Currently fidaxomicin. Laboratory data showed sodium 138 potassium 4.1 chloride 112 bicarb is 18 BUN 21 creatinine 1.12 and blood sugar is 135 calcium 7.8 10/24/2022 patient is currently resting in bed. Awake alert and oriented. No complaints of chest pain or shortness of breath. No nausea vomiting or abdominal pain. Diarrhea is slowing down. No complaints of abdominal pain. No fever no chills. Patient is currently on room air. Hemodynamically stable. 10/25/22 Patient is lying in the bed. Feels weak. Diarrhea is improving. No complaints of nausea or vomiting. Tolerating oral diet slowly. Patient is being continued on production. No cough or sputum production. No fever no chills. No headache or dizziness or lightheadedness. Continue on PT OT. Current medications reviewed. Objective - Vital Signs Vital signs: Vital Signs Temp 98.4 F 10/25/22 20:00 Pulse 79 10/25/22 20:00 Resp 18 10/25/22 20:00 BP 147/67 10/25/22 20:00 Pulse Ox 97 10/25/22 20:00 FiO2 Intake & Output 10/25/22 10/25/22 10/26/22 06:59 18:59 06:59 Intake Total 540 Output Total 600 550 500 Balance -600 -10 -500 Intake: Oral 540 Output: Urine 600 550 500 Other: Voiding Method Indwelling Catheter Indwelling Catheter Indwelling Catheter # Bowel Movements 1 1 1 - Exam - Exam GENERAL: Sitting up in bed, alert and oriented x3,NAD. HEENT: Pupils are round and equally reacting to light. EOMI. No scleral icterus. No conjunctival pallor. Normocephalic, atraumatic. Neck supple, no JVD CARDIOVASCULAR: S1 and S2 present. No murmurs, rubs, or gallops. PULMONARY: Unlabored ,Chest is clear to auscultation, no wheezing or crackles. ABDOMEN: Soft, nontender, nondistended, normoactive bowel sounds. No palpable organomegaly. MUSCULOSKELETAL: No joint swelling or deformity. EXTREMITIES: No cyanosis, clubbing, or pedal edema. NEUROLOGICAL: Gross neurological examination did not reveal any focal deficits. SKIN: Warm and dry, No rashes. - Labs CBC & Chem 7: 10/27/22 08:26 10/27/22 08:26 Labs: Abnormal Lab Results - Last 24 Hours (Table) 10/25/22 10/25/22 10/25/22 Range/Units 06:12 08:42 12:14 Chloride 117 H (98-107) mmol/L Carbon Dioxide 17 L (22-30) mmol/L Glucose 147 H (74-99) mg/dL POC Glucose (mg/dL) 153 H 165 H (70-110) mg/dL Calcium 8.1 L (8.4-10.2) mg/dL 10/25/22 10/25/22 Range/Units 16:37 19:52 Chloride (98-107) mmol/L Carbon Dioxide (22-30) mmol/L Glucose (74-99) mg/dL POC Glucose (mg/dL) 140 H 170 H (70-110) mg/dL Calcium (8.4-10.2) mg/dL Assessment and Plan Assessment: Acute C. difficile colitis Hypertension Diabetes type 2 [id number] Dementia DVT prophylaxis with heparin subcu Plan: Patient will be continued IV hydration and vancomycin changed to Dificid. diarrhea is improving. ID is on board. Continue with Questran. Current home medications and follow-up closely. Possible discharge back to ECF once diarrhea improves. Time with Patient: Greater than 30
--- NOTE | 2022-10-27 12:07 | P.PN ---
Subjective Progress Note Date: 10/26/22 Patient is a pleasantly confused 87-year-old white female who was admitted with C. difficile colitis from recent hospitalization where she was treated with antibiotics 10/22/2022 Patient is currently resting in bed. Awake alert and oriented x3. Pulmonary on room air. No complaints of cough or sputum production. Continues to have diarrhea. Fecal management system is in place. Vancomycin has been changed to fidaxomicin as per ID recommendations. No longer has abdominal pain. No chest pain or shortness of breath. Laboratory data showed WBC 6.4 hemoglobin 9.0 and platelets 243 sodium 136 potassium 4.4 chloride 113 bicarb is 18 BUN 25 creatinine 1.33 and blood sugar is 171 and calcium 8.1. 10/23/2022 Patient is currently resting in bed. Awake alert and oriented x3. No complaints of chest pain or shortness of breath. No abdominal pain. Still having diarrhea but frequency is coming down. Patient has been afebrile. Currently fidaxomicin. Laboratory data showed sodium 138 potassium 4.1 chloride 112 bicarb is 18 BUN 21 creatinine 1.12 and blood sugar is 135 calcium 7.8 10/24/2022 patient is currently resting in bed. Awake alert and oriented. No complaints of chest pain or shortness of breath. No nausea vomiting or abdominal pain. Diarrhea is slowing down. No complaints of abdominal pain. No fever no chills. Patient is currently on room air. Hemodynamically stable. 10/25/22 Patient is lying in the bed. Feels weak. Diarrhea is improving. No complaints of nausea or vomiting. Tolerating oral diet slowly. Patient is being continued on production. No cough or sputum production. No fever no chills. No headache or dizziness or lightheadedness. Continue on PT OT. 10/26/22 Patient is awake alert and seems to be more oriented now. Diarrhea is improving. No complaints of nausea vomiting abdominal pain. No headache or dizziness lightheadedness. Continue with PT OT and possible discharge back to ECF in the next 24 hours. Continue with fidoxamicin Current medications reviewed. Objective - Vital Signs Vital signs: Vital Signs Temp 98 F 10/26/22 20:00 Pulse 80 10/26/22 20:00 Resp 16 10/26/22 20:00 BP 167/72 10/26/22 20:00 Pulse Ox 96 10/26/22 20:00 FiO2 Intake & Output 10/26/22 10/26/22 10/27/22 06:59 18:59 06:59 Intake Total 540 Output Total 500 400 Balance -500 540 -400 Intake: Oral 540 Output: Urine 500 400 Other: Voiding Method Indwelling Catheter Indwelling Catheter Indwelling Catheter # Bowel Movements 1 2 1 - Exam - Exam GENERAL: Sitting up in bed, alert and oriented x3,NAD. HEENT: Pupils are round and equally reacting to light. EOMI. No scleral icterus. No conjunctival pallor. Normocephalic, atraumatic. Neck supple, no JVD CARDIOVASCULAR: S1 and S2 present. No murmurs, rubs, or gallops. PULMONARY: Unlabored ,Chest is clear to auscultation, no wheezing or crackles. ABDOMEN: Soft, nontender, nondistended, normoactive bowel sounds. No palpable organomegaly. MUSCULOSKELETAL: No joint swelling or deformity. EXTREMITIES: No cyanosis, clubbing, or pedal edema. NEUROLOGICAL: Gross neurological examination did not reveal any focal deficits. SKIN: Warm and dry, No rashes. - Labs CBC & Chem 7: 10/27/22 08:26 10/27/22 08:26 Labs: Abnormal Lab Results - Last 24 Hours (Table) 10/26/22 10/26/22 10/26/22 Range/Units 06:13 11:35 16:23 POC Glucose (mg/dL) 136 H 151 H 130 H (70-110) mg/dL 10/26/22 Range/Units 19:37 POC Glucose (mg/dL) 159 H (70-110) mg/dL Assessment and Plan Assessment: Acute C. difficile colitis Hypertension Diabetes type 2 [id number] Dementia DVT prophylaxis with heparin subcu Plan: Patient will be continued IV hydration and vancomycin changed to Dificid. diarrhea is improving. ID is on board. Continue with [facility]ran. Current home medications and follow-up closely. Possible discharge back to ECF once diarrhea improves.
[2022-10-27 12:22] VITALS: BP 133/64; RESP 18; TEMP 98.2
--- NOTE | 2022-10-27 14:36 | P.PN ---
Subjective Progress Note Date: 10/27/22 Principal diagnosis: C. diff colitis Patient is a 87-year-old female with a past medical history significant for atrial fibrillation heart failure hypertension diabetes mellitus patient was sent in from local correction for evaluation of weakness and diarrhea apparently patient was noticed to have some mental status changes , patient has been diagnosed with C. diff colitis on today's evaluation that is 10/27/2022, the patient denies any fever or chills, the patient is breathing comfortably on room air, patient denies chest pain or shortness of breath and denies any cough or sputum production, the patient feeling better mention only one small bowel movement this morning no abdominal pain Objective - Vital Signs Vital signs: Vital Signs Temp 98.2 F 10/27/22 12:00 Pulse 72 10/27/22 12:00 Resp 18 10/27/22 12:00 BP 133/64 10/27/22 12:00 Pulse Ox 96 10/27/22 12:00 FiO2 Intake & Output 10/26/22 10/27/22 10/27/22 18:59 06:59 18:59 Intake Total 540 222 Output Total 400 Balance 540 -400 222 Intake: Oral 540 222 Output: Urine 400 Other: Voiding Method Indwelling Catheter Indwelling Catheter Indwelling Catheter # Bowel Movements 2 1 1 - Exam GENERAL DESCRIPTION: An elderly female lying in bed in no distress RESPIRATORY SYSTEM: Unlabored breathing , decreased breath sounds at bases HEART: S1 S2 regular rate and rhythm , ABDOMEN: Soft , no tenderness EXTREMITIES: No edema feet - Labs CBC & Chem 7: 10/27/22 08:26 10/27/22 08:26 Labs: Abnormal Lab Results - Last 24 Hours (Table) 10/26/22 10/26/22 10/27/22 Range/Units 16:23 19:37 05:35 RBC (3.80-5.40) m/uL Hgb (11.4-16.0) gm/dL Hct (34.0-46.0) % MCV (80.0-100.0) fL Neutrophils # (1.3-7.7) k/uL Lymphocytes # (1.0-4.8) k/uL Chloride (98-107) mmol/L Carbon Dioxide (22-30) mmol/L BUN (7-17) mg/dL Creatinine (0.52-1.04) mg/dL Glucose (74-99) mg/dL POC Glucose (mg/dL) 130 H 159 H 140 H (70-110) mg/dL Calcium (8.4-10.2) mg/dL 10/27/22 10/27/22 Range/Units 08:26 08:26 RBC 3.19 L (3.80-5.40) m/uL Hgb 10.3 L (11.4-16.0) gm/dL Hct 32.9 L (34.0-46.0) % MCV 102.9 H (80.0-100.0) fL Neutrophils # 7.8 H (1.3-7.7) k/uL Lymphocytes # 0.8 L (1.0-4.8) k/uL Chloride 116 H (98-107) mmol/L Carbon Dioxide 15 L (22-30) mmol/L BUN 19 H (7-17) mg/dL Creatinine 1.10 H (0.52-1.04) mg/dL Glucose 142 H (74-99) mg/dL POC Glucose (mg/dL) (70-110) mg/dL Calcium 8.0 L (8.4-10.2) mg/dL Assessment and Plan (1) C. difficile colitis Current Visit: Yes Status: Acute Code(s): A04.72 - ENTEROCOLITIS D/T CLOSTRIDIUM DIFFICILE, NOT SPCF RECUR SNOMED Code(s): 922208027 Plan: 1patient presented to hospital with diarrhea and mental status changes did have elevated white count and did have a positive stool for C. difficile and likely acute C. difficile colitis. 2patient has been encouraged again to increase her probiotic/yogurt intake, advised to milk intake 3-patient seemed to have shown clinical improvement and will be continued on deficid to finish a ten-day course of therapy along with Questran for symptom atic relief , close outpatient follow-up Time with Patient: Less than 30
== END 2022-10-27 14:39 | DRG 372 ==
LOC: EC 14:38 → 3SCARD 19:15 → EEVIPCON 19:15 → 3SCARD 20:34
PROVIDERS: ADMIT Family Medicine; ATTEND Family Medicine
DX: A04.72 Enterocolitis due to Clostridium difficile, not specified as recurrent (principal); E87.29 Other acidosis; G93.40 Encephalopathy, unspecified; I13.0 Hypertensive heart and chronic kidney disease with heart failure and stage 1 through stage 4 chronic kidney disease, or unspecified chronic kidney disease; N17.9 Acute kidney failure, unspecified; D50.9 Iron deficiency anemia, unspecified; D53.9 Nutritional anemia, unspecified; E11.22 Type 2 diabetes mellitus with diabetic chronic kidney disease; E86.0 Dehydration; E87.8 Other disorders of electrolyte and fluid balance, not elsewhere classified; F03.90 Unspecified dementia, unspecified severity, without behavioral disturbance, psychotic disturbance, mood disturbance, and anxiety; G89.29 Other chronic pain; I48.91 Unspecified atrial fibrillation; I50.9 Heart failure, unspecified; K21.9 Gastro-esophageal reflux disease without esophagitis; M43.16 Spondylolisthesis, lumbar region; M19.90 Unspecified osteoarthritis, unspecified site; R01.1 Cardiac murmur, unspecified; N18.2 Chronic kidney disease, stage 2 (mild); Z66 Do not resuscitate; E11.40 Type 2 diabetes mellitus with diabetic neuropathy, unspecified; Z20.822 Contact with and (suspected) exposure to COVID-19; Z79.02 Long term (current) use of antithrombotics/antiplatelets; Z79.899 Other long term (current) drug therapy; Z82.49 Family history of ischemic heart disease and other diseases of the circulatory system; Z87.891 Personal history of nicotine dependence; Z91.81 History of falling; Z86.11 Personal history of tuberculosis; Z90.2 Acquired absence of lung [part of]; Z87.01 Personal history of pneumonia (recurrent); Z71.3 Dietary counseling and surveillance; Z60.2 Problems related to living alone; Z79.4 Long term (current) use of insulin; Z88.2 Allergy status to sulfonamides
CPT/HCPCS: 36415; 70450; 71046; 80048; 80053; 80306; 80320; 81001; 82140; 83605; 83735; 84484; 85025; 85027; 85610; 85730; 87040; 87324; 87635; 87636; 93005; 96360; 96361; 99285

== ENCOUNTER 2022-11-03 13:15 | Emergency (ER) | payer MEDICARE ==
[2022-11-03 13:26] VITALS: TEMP 97.6
--- NOTE | 2022-11-03 14:11 | US ---
EXAMINATION TYPE: US venous doppler duplex LE LT DATE OF EXAM: 11/03/2022 2:03 PM COMPARISON: US 2012 CLINICAL HISTORY: r/out DVT. Pt states pain left leg SIDE PERFORMED: Left TECHNIQUE: The lower extremity deep venous system is examined utilizing real time linear array sonog stephanie with graded compression, doppler sonography and color-flow sonography. VESSELS IMAGED: Common Femoral Vein Deep Femoral Vein Greater Saphenous Vein * Femoral Vein Popliteal Vein Small Saphenous Vein * Proximal Calf Veins (* superficial vessels) Left Leg: Negative for DVT IMPRESSION: 1. Left lower extremity ultrasound negative for deep venous thrombosis
--- NOTE | 2022-11-03 14:55 | ED ---
Extremity Problem HPI - General Chief complaint: Extremity Problem,Nontraumatic Stated complaint: poss DVT Lt leg Time Seen by Provider: 11/03/22 13:28 Source: patient, EMS, RN notes reviewed Mode of arrival: EMS - History of Present Illness Initial comments: 87 year old female presents to the emergency department via EMS for L leg pain. 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 She reports pain and swelling to bilateral legs. She denies shortness of breath, chest pain, palpitations, abdominal pain, cough, fevers. Denies history of blood clots, smoking status, recent long travel. - Related Data Home Medications Medication Instructions Recorded Confirmed Lovastatin [Mevacor] 20 mg PO HS 05/01/21 11/03/22 Memantine [Namenda] 10 mg PO BID@0800,1700 05/01/21 11/03/22 Clopidogrel [Plavix] 75 mg PO DAILY 10/05/22 11/03/22 Donepezil [Aricept] 5 mg PO DAILY 10/05/22 11/03/22 Ferrous Sulfate [Iron (65 MG 325 mg PO DAILY@1700 10/05/22 11/03/22 Elemental)] Acetaminophen [Tylenol Arthritis] 650 mg PO Q4H PRN 10/17/22 11/03/22 INSULIN ASPART (NovoLOG) [NovoLOG See Protocol SQ ACHS 10/17/22 11/03/22 (formulary)] Magnesium Hydroxide [Milk of 7,200 mg PO DAILY PRN 10/17/22 11/03/22 Magnesia Concentrate] Meclizine [Antivert] 25 mg PO TID-W/MEALS PRN 10/17/22 11/03/22 Melatonin 1 mg PO HS 10/17/22 11/03/22 Na Phos,M-B/Na Phos,Di-Ba [Fleet 133 ml RECTAL DAILY PRN 10/17/22 11/03/22 Adult] Nystatin 100,000 Unit/gm Powd 1 applic TOPICAL BID 10/17/22 11/03/22 [Mycostatin Powder] bisacodyL [Dulcolax] 10 mg RECTAL DAILY PRN 10/17/22 11/03/22 hydrALAZINE HCL [Apresoline] 25 mg PO Q6H PRN 10/17/22 11/03/22 Menthol/Zinc Oxide [Calprotect 1 applic TOPICAL TID 11/03/22 11/03/22 0.44%-20.6% Oint] Pantoprazole Sodium [Protonix] 40 mg PO DAILY@0600 11/03/22 11/03/22 Allergies Allergy/AdvReac Type Severity Reaction Status Date / Time Sulfa (Sulfonamide Allergy Rash/Hives Verified 11/03/22 14:48 Antibiotics) Review of Systems ROS Statement: Those systems with pertinent positive or pertinent negative responses have been documented in the HPI. ROS Other: All systems not noted in ROS Statement are negative. 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, heart murmur History of Any Multi-Drug Resistant Organisms: C-DIFF Date of last positivie culture/infection: 10/17/22 MDRO Source:: stool Past Surgical History: Hysterectomy Additional Past Surgical History / Comment(s): partial left lung removal at of Past Anesthesia/Blood Transfusion Reactions: No Reported Reaction Past Psychological History: No Psychological Hx Reported Smoking Status: Never smoker Past Alcohol Use History: Rare Past Drug Use History: None Reported - Past Family History Mother Family Medical History: Cancer Additional Family Medical History / Comment(s): Unknown type of cancer. Father Family Medical History: Myocardial Infarction ([place]) General Exam General appearance: alert, in no apparent distress Head exam: Present: atraumatic, normocephalic, normal inspection Eye exam: Present: normal appearance, PERRL, EOMI. Absent: scleral icterus, conjunctival injection, periorbital swelling ENT exam: Present: normal exam, mucous membranes moist Neck exam: Present: normal inspection. Absent: tenderness, meningismus, lymphadenopathy Respiratory exam: Present: normal lung sounds bilaterally. Absent: respiratory distress, wheezes, rales, rhonchi, stridor Cardiovascular Exam: Present: regular rate, normal rhythm, normal heart sounds. Absent: systolic murmur, diastolic murmur, rubs, gallop, clicks GI/Abdominal exam: Present: soft, normal bowel sounds. Absent: distended, tenderness, guarding, rebound, rigid Extremities exam: Present: normal inspection, full ROM, normal capillary refill, pedal edema (trace bilateral edema, negative Val's sign, 2+ radial pulses, NVI ). Absent: tenderness, joint swelling, calf tenderness Left Lower Leg exam: Present: normal inspection, full ROM, laceration (6 cm laceration to L calf that appears to be healing well without active drainage, bleeding, erythema ). Absent: Homans' sign Course Vital Signs 11/03/22 11/03/22 13:22 15:07 Temperature 97.6 F Pulse Rate 74 80 Respiratory 18 16 Rate Blood Pressure 178/76 178/63 O2 Sat by Pulse 98 97 Oximetry Medical Decision Making - Medical Decision Making Was pt. sent in by a medical professional or institution? @ -longterm Did you speak to anyone other than the patient for history? @ -patient and family I Did you review nursing and triage notes? @ triage notes reviewed ] Were old charts reviewed? @ -No Differential Diagnosis? @ -laceration, DVT U/S interpreted by me (1pt. min.)? @ -US doppler negative for evidence of DVT Did you discuss the management of the patient with other professionals? @ - I discussed the case with Dr. Romo who agrees with the plan for discharge Was patient admitted / discharged? @ -I discussed the results with the patient. Patient verbalized understanding and was discharged in stable condition with recommend close follow up in 1-2 days. Undiagnosed new problem with uncertain prognosis? L eg laceration Diagnosis/symptom? @ -L leg laceration a Acute, or Chronic, or Acute on Chronic? @ acute Uncomplicated (without systemic symptoms) or Complicated (systemic symptoms)? @ -uncomplicated Side effects of treatment? @ -None Exacerbation, Progression, or Severe Exacerbation] @ -None Poses a threat to life or bodily function? @ -low likelihood Disposition Clinical Impression: Left leg pain Disposition: HOME SELF-CARE Condition: Stable Instructions (If sedation given, give patient instructions): Leg Edema (ED) Additional Instructions: PLease return to the Emergency department if worsening symptoms of shortness of breath, pain, or fever develops Is patient prescribed a controlled substance at d/c from ED?: No Referrals: Juancarlos Man MD [Primary Care Provider] - 1-2 days Time of Disposition: 14:55
[2022-11-03 15:08] VITALS: BP 178/63; PULSE 80; RESP 16
== END 2022-11-03 15:42 | disposition home or self-care (01) ==
LOC: EC 13:15
DX: M79.605 Pain in left leg (principal); I48.91 Unspecified atrial fibrillation; I11.0 Hypertensive heart disease with heart failure; I50.9 Heart failure, unspecified; E11.9 Type 2 diabetes mellitus without complications; Z88.2 Allergy status to sulfonamides; Z79.02 Long term (current) use of antithrombotics/antiplatelets; Z79.4 Long term (current) use of insulin; Z79.899 Other long term (current) drug therapy
CPT/HCPCS: 99284

== ENCOUNTER 2022-11-05 14:17 | Inpatient (IN) | payer MEDICARE ==
[2022-11-05] MEDS ORDERED: SODIUM CHLORIDE 0.9% 1,000 ML IV STA (14:46)
--- NOTE | 2022-11-05 14:49 | ED ---
General Adult HPI - General Chief complaint: Nausea/Vomiting/Diarrhea Stated complaint: diarrhea, fever Time Seen by Provider: 11/05/22 14:26 Source: patient, RN notes reviewed, old records reviewed (Reviewed snf report) Mode of arrival: ambulatory Limitations: no limitations - History of Present Illness Initial comments: Patient is a pleasant 79-year-old female presenting to the emergency department with concerns with diarrhea. Patient reportedly was recently on antibiotics however unclear why. Diarrhea has been drinking about 5 days now. Patient does have history of C. diff, unclear when. Patient denies abdominal discomfort. When specifically questioned patient does admit that she feels a little bit dry. Patient had reported fever 101 today. Patient received Tylenol prior to transfer. - Related Data Home Medications Medication Instructions Recorded Confirmed Lovastatin [Mevacor] 20 mg PO HS@2100 05/01/21 11/05/22 Memantine [Namenda] 10 mg PO BID@0800,1700 05/01/21 11/05/22 Clopidogrel [Plavix] 75 mg PO DAILY@0800 10/05/22 11/05/22 Donepezil [Aricept] 5 mg PO DAILY@0800 10/05/22 11/05/22 Ferrous Sulfate [Iron (65 MG 325 mg PO DAILY@1700 10/05/22 11/05/22 Elemental)] Acetaminophen [Tylenol Arthritis] 650 mg PO Q4H PRN 10/17/22 11/05/22 INSULIN ASPART (NovoLOG) [NovoLOG See Protocol SQ ACHS@07,11,1630,21 10/17/22 11/05/22 (formulary)] Magnesium Hydroxide [Milk of 7,200 mg PO DAILY PRN 10/17/22 11/05/22 Magnesia Concentrate] Meclizine [Antivert] 25 mg PO TID-W/MEALS PRN 10/17/22 11/05/22 Melatonin 1 mg PO HS@2100 10/17/22 11/05/22 Na Phos,M-B/Na Phos,Di-Ba [Fleet 133 ml RECTAL DAILY PRN 10/17/22 11/05/22 Adult] Nystatin 100,000 Unit/gm Powd 1 applic TOPICAL BID@0800,1700 10/17/22 11/05/22 [Mycostatin Powder] bisacodyL [Dulcolax] 10 mg RECTAL DAILY PRN 10/17/22 11/05/22 hydrALAZINE HCL [Apresoline] 25 mg PO Q6H PRN 10/17/22 11/05/22 Menthol/Zinc Oxide [Calprotect 1 applic TOPICAL TID 11/03/22 11/05/22 0.44%-20.6% Oint] Pantoprazole Sodium [Protonix] 40 mg PO DAILY@0600 11/03/22 11/05/22 Fidaxomicin [Dificid] 200 mg PO BID@0800,1700 11/05/22 11/05/22 Kenalog-40 Suspension (40mg/Ml) 40 mg INTRAARTIC DIRECTED 11/05/22 11/05/22 Lidocaine Hcl 2% Solution 2 ml INTRAARTIC DIRECTED 11/05/22 11/05/22 Allergies Allergy/AdvReac Type Severity Reaction Status Date / Time Sulfa (Sulfonamide Allergy Rash/Hives Verified 11/05/22 15:11 Antibiotics) Review of Systems ROS Statement: Those systems with pertinent positive or pertinent negative responses have been documented in the HPI. ROS Other: All systems not noted in ROS Statement are negative. Constitutional: Reports: as per HPI, fever ENT: Denies: ear pain Respiratory: Denies: cough Cardiovascular: Denies: chest pain Endocrine: Denies: fatigue Gastrointestinal: Reports: diarrhea. Denies: abdominal pain, vomiting Musculoskeletal: Denies: back pain Skin: Denies: rash Neurological: Denies: weakness Past Medical History Past Medical History: Atrial Fibrillation, Heart Failure, Dementia, Diabetes Mellitus, Hypertension, Pneumonia Additional Past Medical History / Comment(s): TB in 1955, heart murmur History of Any Multi-Drug Resistant Organisms: C-DIFF Date of last positivie culture/infection: 10/17/22 MDRO Source:: stool Past Surgical History: Hysterectomy Additional Past Surgical History / Comment(s): partial left lung removal at [facility] Past Anesthesia/Blood Transfusion Reactions: No Reported Reaction Past Psychological History: No Psychological Hx Reported Smoking Status: Never smoker Past Alcohol Use History: Rare Past Drug Use History: None Reported - Past Family History Mother Family Medical History: Cancer Additional Family Medical History / Comment(s): Unknown type of cancer. Father Family Medical History: Myocardial Infarction ([place]) General Exam Limitations: no limitations General appearance: alert, in no apparent distress Head exam: Present: normocephalic Eye exam: Present: normal appearance ENT exam: Present: mucous membranes dry Neck exam: Present: normal inspection Respiratory exam: Present: normal lung sounds bilaterally Cardiovascular Exam: Present: regular rate, normal rhythm GI/Abdominal exam: Present: soft, normal bowel sounds. Absent: distended, tenderness, guarding, rebound, rigid Extremities exam: Present: normal inspection Neurological exam: Present: alert, oriented X3, CN II-XII intact. Absent: motor sensory deficit Psychiatric exam: Present: normal affect, normal mood Skin exam: Present: normal color Course Vital Signs 11/05/22 14:24 Temperature 99.9 F H Pulse Rate 89 Respiratory 18 Rate Blood Pressure 132/56 O2 Sat by Pulse 95 Oximetry Medical Decision Making - Medical Decision Making Patient reevaluated. Patient and family updated on results and plan. Case discussed with practitioner Afsaneh, who will admit covering Dr. Man. She does recommend oral vancomycin Additional history taken from family states patient was recently admitted with C. diff infection. Patient went back to snf and was doing okay however now is having fevers and worsening symptoms. Was pt. sent in by a medical professional or institution (, PA, PERCUSSION TEACHER, urgent care, hospital, or snf...) When possible be specific @ -Patient sent from nursing facility Did you speak to anyone other than the patient for history (EMS, parent, family, police, friend...)? What history was obtained from this source @ -Family provided further history as above Did you review nursing and triage notes (agree or disagree)? Why? @ -I reviewed and agree with nursing and triage notes Were old charts reviewed (outside hosp., previous admission, EMS record, old EK G, old radiological studies, urgent care reports/EKG's, snf records)? Report findings @ -Reviewed previous admission Differential Diagnosis (chest pain, altered mental status, abdominal pain women, abdominal pain men, vaginal bleeding, weakness, fever, dyspnea, syncope, headache, dizziness, GI bleed, back pain, seizure, CVA, palpatations, mental health)? @ -Differential Abdominal Pain Women: Appendicitis, Cholecystitis, diverticulosis, ischemic bowel, pancreatitis, hepatitis, UTI, gastroenteritis, AAA, incarcerated hernia, bowel obstruction, constipation, inflammatory bowel, hepatitis, peptic ulcer disease, splenic infarction, perforated viscus, vulvitis, ovarian torsion, PID, kidney stone, placenta abruption, this is not meant to be an all-inclusive list EKG interpreted by me (3pts min.). @ -As above X-rays interpreted by me (1pt min.). @ -As above CT interpreted by me (1pt min.). @ -None done U/S interpreted by me (1pt. min.). @ -None done What testing was considered but not performed or refused? (CT, X-rays, U/S, labs)? Why? @ -None What meds were considered but not given or refused? Why? @ -None Did you discuss the management of the patient with other professionals (professionals i.e. , PA, PERCUSSION TEACHER, lab, RT, psych nurse, social work job titles, supplier specialist, teacher, agricultural loan officer, human services case manager)? Give summary @ -Discussed with practitioner Afsaneh, who will admit covering with Dr. Malone Was smoking cessation discussed for >3mins.? @ -No Was critical care preformed (if so, how long)? @ -No Were there social determinants of health that impacted care today? How? (Homelessness, low income, unemployed, alcoholism, drug addiction, transportation, low edu. Level, literacy, decrease access to med. care, intermediate, rehab)? @ -No Was there de-escalation of care discussed even if they declined (Discuss DNR or withdrawal of care, Hospice)? DNR status @ -No What co-morbidities impacted this encounter? (DM, HTN, Smoking, COPD, CAD, Cancer, CVA, ARF, Chemo, Hep., AIDS, mental health diagnosis, sleep apnea, morbid obesity)? @ -C. diff history Was patient admitted / discharged? Hospital course, mention meds given and route, prescriptions, significant lab abnormalities, going to OR and other pertinent info. @ -Admitted Undiagnosed new problem with uncertain prognosis? @ -No Drug Therapy requiring intensive monitoring for toxicity (Heparin, Nitro, Insulin, Cardizem)? @ -No Were any procedures done? @ -No Diagnosis/symptom? @ -Diarrhea, fever Acute, or Chronic, or Acute on Chronic? @ -Acute on chronic Uncomplicated (without systemic symptoms) or Complicated (systemic symptoms)? @ -Uncomplicated Side effects of treatment? @ -No Exacerbation, Progression, or Severe Exacerbation? @ -No Poses a threat to life or bodily function? How? (Chest pain, USA, PA, pneumonia, PE, COPD, DKA, ARF, appy, cholecystitis, CVA, Diverticulitis, Homicidal, Suicidal, threat to staff... and all critical care pts) @ -No - Lab Data Result diagrams: 11/05/22 14:55 11/05/22 14:55 Lab Results 11/05/22 11/05/22 11/05/22 Range/Units 14:55 14:55 14:55 WBC 16.5 H (3.8-10.6) k/uL RBC 3.74 L (3.80-5.40) m/uL Hgb 11.6 (11.4-16.0) gm/dL Hct 36.7 (34.0-46.0) % MCV 98.1 (80.0-100.0) fL MCH 31.1 (25.0-35.0) pg MCHC 31.7 (31.0-37.0) g/dL RDW 13.5 (11.5-15.5) % Plt Count 287 (150-450) k/uL MPV 8.1 Neutrophils % 85 % Lymphocytes % 11 % Monocytes % 3 % Eosinophils % 0 % Basophils % 0 % Neutrophils # 14.0 H (1.3-7.7) k/uL Lymphocytes # 1.8 (1.0-4.8) k/uL Monocytes # 0.4 (0-1.0) k/uL Eosinophils # 0.0 (0-0.7) k/uL Basophils # 0.1 (0-0.2) k/uL Hypochromasia Moderate Sodium 137 (137-145) mmol/L Potassium 4.9 (3.5-5.1) mmol/L Chloride 108 H (98-107) mmol/L Carbon Dioxide 24 (22-30) mmol/L Anion Gap 5 mmol/L BUN 14 (7-17) mg/dL Creatinine 1.13 H (0.52-1.04) mg/dL Est GFR (CKD-EPI)AfAm 50 (>60 ml/min/1.73 sqM) Est GFR (CKD-EPI)NonAf 44 (>60 ml/min/1.73 sqM) Glucose 149 H (74-99) mg/dL Plasma Lactic Acid Ronny 1.5 (0.7-2.0) mmol/L Calcium 7.7 L (8.4-10.2) mg/dL Total Bilirubin 0.9 (0.2-1.3) mg/dL AST 26 (14-36) U/L ALT 15 (4-34) U/L Alkaline Phosphatase 30 L (38-126) U/L Total Protein 5.4 L (6.3-8.2) g/dL Albumin 3.0 L (3.5-5.0) g/dL Influenza Type A (PCR) (Not Detectd) Influenza Type B (PCR) (Not Detectd) RSV (PCR) (Not Detectd) SARS-CoV-2 (PCR) (Not Detectd) 11/05/22 Range/Units 14:55 WBC (3.8-10.6) k/uL RBC (3.80-5.40) m/uL Hgb (11.4-16.0) gm/dL Hct (34.0-46.0) % MCV (80.0-100.0) fL MCH (25.0-35.0) pg MCHC (31.0-37.0) g/dL RDW (11.5-15.5) % Plt Count (150-450) k/uL MPV Neutrophils % % Lymphocytes % % Monocytes % % Eosinophils % % Basophils % % Neutrophils # (1.3-7.7) k/uL Lymphocytes # (1.0-4.8) k/uL Monocytes # (0-1.0) k/uL Eosinophils # (0-0.7) k/uL Basophils # (0-0.2) k/uL Hypochromasia Sodium (137-145) mmol/L Potassium (3.5-5.1) mmol/L Chloride (98-107) mmol/L Carbon Dioxide (22-30) mmol/L Anion Gap mmol/L BUN (7-17) mg/dL Creatinine (0.52-1.04) mg/dL Est GFR (CKD-EPI)AfAm (>60 ml/min/1.73 sqM) Est GFR (CKD-EPI)NonAf (>60 ml/min/1.73 sqM) Glucose (74-99) mg/dL Plasma Lactic Acid Ronny (0.7-2.0) mmol/L Calcium (8.4-10.2) mg/dL Total Bilirubin (0.2-1.3) mg/dL AST (14-36) U/L ALT (4-34) U/L Alkaline Phosphatase (38-126) U/L Total Protein (6.3-8.2) g/dL Albumin (3.5-5.0) g/dL Influenza Type A (PCR) Not Detected (Not Detectd) Influenza Type B (PCR) Not Detected (Not Detectd) RSV (PCR) Not Detected (Not Detectd) SARS-CoV-2 (PCR) Not Detected (Not Detectd) - Radiology Data Interpreted by me: Chest x-ray shows no acute process Disposition Clinical Impression: Clostridioides difficile infection, Fever, Diarrhea Disposition: ADMITTED IP TO THIS HOSP Is patient prescribed a controlled substance at d/c from ED?: No Referrals: Juancarlos Man MD [Primary Care Provider] - 1-2 days Time of Disposition: 17:08
[2022-11-05 15:41] LABS: Basophils # (A) 0.1 k/uL (0-0.2); Basophils % (A) 0 %; Eosinophils % (A) 0 %; HCT 36.7 % (34.0-46.0); HGB 11.6 gm/dL (11.4-16.0); Hypochromasia Moderate; Lymphocytes # (A) 1.8 k/uL (1.0-4.8); Lymphocytes % (A) 11 %; MCH 31.1 pg (25.0-35.0); MCHC 31.7 g/dL (31.0-37.0); MCV 98.1 fL (80.0-100.0); Mean Platelet Volume 8.1; Monocytes # (A) 0.4 k/uL (0-1.0); Monocytes % (A) 3 %; Neutrophils % (A) 85 %; Platelet Count 287 k/uL (150-450); RBC 3.74 m/uL (3.80-5.40); RDW 13.5 % (11.5-15.5); WBC 16.5 k/uL (3.8-10.6)
--- NOTE | 2022-11-05 15:45 | XR ---
EXAMINATION TYPE: XR chest 2V DATE OF EXAM: 11/05/2022 3:40 PM COMPARISON: Chest radiographs from 10/17/2022 TECHNIQUE: XR chest 2V Frontal and lateral views of the chest. CLINICAL INDICATION:Female, 87 years old with history of Fever; FINDINGS: Lungs/Pleura: There is no evidence of pleural effusion, focal consolidation, or pneumothorax. Pulmonary vascularity: Unremarkable. Heart/mediastinum: Cardiomediastinal silhouette is unremarkable. Atherosclerotic calcifications are seen in the aorta. Musculoskeletal: Multiple level degenerative disc disease changes seen throughout the spine. No acute osseous abnormality IMPRESSION: No acute cardiopulmonary disease/process. No significant change from prior examination.
[2022-11-05 16:02] LABS: Calcium 7.7 mg/dL (8.4-10.2); Total Bilirubin 0.9 mg/dL (0.2-1.3); Total Protein 5.4 g/dL (6.3-8.2)
[2022-11-05 16:09] LABS: Potassium 4.9 mmol/L (3.5-5.1)
[2022-11-05] MEDS ORDERED: NALOXONE 0.4 MG/ML 1 ML VIAL IV PRN (17:09)
[2022-11-05 18:00] LABS: Amorphous Sediment,Urine Occasional /hpf; Appearance,Urine Turbid (Clear); Bacteria,Urine Many /hpf; Bilirubin,Urine Negative (Negative); Blood,Urine Trace (Negative); Color,Urine Yellow; Glucose,Urine (UA) Negative (Negative); Hyaline Casts,Urine 22 /lpf (0-2); Ketones,Urine Negative (Negative); Leukocyte Esterase,Urine Large (Negative); Mucus,Urine Many /hpf; Nitrite,Urine Positive (Negative); PH, Urine 5.5 (5.0-8.0); Protein,Urine 1+ (Negative); RBC,Urine 5 /hpf (0-5); Specific Gravity,Urine 1.021 (1.001-1.035); Squamous Epithelial Cell,Urine 29 /hpf (0-4); Urobilinogen,Urine <2.0 mg/dL (<2.0); WBC,Urine 108 /hpf (0-5)
[2022-11-05] MEDS: SODIUM CHLORIDE 0.9% 1,000 ML IV SCH (20:06)
[2022-11-05] MEDS: VANCOMYCIN 125 MG CAPSULE PO SCH ×2 (20:33→23:30)
[2022-11-05] MEDS: FAMOTIDINE 20 MG TAB PO SCH (20:33)
[2022-11-05 20:34] LABS: Glucose,Whole Blood 179 mg/dL (70-110)
[2022-11-05] MEDS ORDERED: DEXTROSE 50% SYRINGE 50 ML IVP PRN ×2 (20:35)
[2022-11-05] MEDS ORDERED: ONDANSETRON 4 MG/2 ML VIAL IVP PRN (20:35)
[2022-11-05 22:00] LABS: Glucose,Whole Blood 191 mg/dL (70-110)
[2022-11-05] MEDS: INSULIN ASPART (NovoLOG) 100 UNIT/ML VIAL SQ SCH (22:04)
[2022-11-05] MEDS: ACETAMINOPHEN TAB 325 MG TAB PO PRN (22:20)
[2022-11-06 05:55] LABS: Glucose,Whole Blood 150 mg/dL (70-110)
[2022-11-06] MEDS: SODIUM CHLORIDE 0.9% 1,000 ML IV SCH ×2 (05:55→20:56)
[2022-11-06] MEDS: INSULIN ASPART (NovoLOG) 100 UNIT/ML VIAL SQ SCH ×4 (05:55→21:19)
[2022-11-06 06:30] LABS: Basophils # (A) 0.1 k/uL (0-0.2); Basophils % (A) 1 %; Eosinophils # (A) 0.1 k/uL (0-0.7); Eosinophils % (A) 1 %; HCT 35.7 % (34.0-46.0); HGB 10.8 gm/dL (11.4-16.0); Hypochromasia Marked; Lymphocytes # (A) 2.5 k/uL (1.0-4.8); Lymphocytes % (A) 20 %; MCH 31.3 pg (25.0-35.0); MCHC 30.3 g/dL (31.0-37.0); Macrocytosis Slight; Mean Platelet Volume 8.2; Monocytes # (A) 0.6 k/uL (0-1.0); Monocytes % (A) 5 %; Neutrophils # (A) 9.1 k/uL (1.3-7.7); Neutrophils % (A) 73 %; Platelet Count 235 k/uL (150-450); RBC 3.45 m/uL (3.80-5.40); WBC 12.6 k/uL (3.8-10.6)
[2022-11-06 07:00] LABS: MCV 103.5 fL (80.0-100.0)
[2022-11-06 09:20] LABS: Albumin 2.8 g/dL (3.8-4.9); Anion Gap 8.5 mmol/L (10.00-18.00); BUN/Creat Ratio 10.94 Ratio (12.00-20.00); Blood Urea Nitrogen 17.5 mg/dL (9.0-27.0); Calcium 7.7 mg/dL (8.7-10.3); Carbon Dioxide 22.5 mmol/L (20.0-27.5); Globulin 1.4 g/dL (1.6-3.3); Non-African American GFR(CKD) 28.5 (60.0-200.0); Potassium 3.7 mmol/L (3.5-5.5); Total Bilirubin 0.3 mg/dL (0.30-1.20); Total Protein 4.2 g/dL (6.2-8.2)
[2022-11-06] MEDS: VANCOMYCIN 125 MG CAPSULE PO SCH ×5 (09:44→20:57)
[2022-11-06 12:03] LABS: Glucose,Whole Blood 171 mg/dL (70-110)
[2022-11-06 17:07] LABS: Glucose,Whole Blood 156 mg/dL (70-110)
--- NOTE | 2022-11-06 17:49 | P.CONS ---
History of Present Illness - Reason for Consult Consult date: 11/06/22 C. diff and fever Requesting physician: Alvino Arroyo - Chief Complaint Diarrhea x 5 days - History of Present Illness Patient is an 87 year old female with a past medical history significant for atrial fibrillation heart failure hypertension diabetes mellitus she was recently admitted to this facility and of September and the patient was diagnosed and treated for C. diff colitis in this patient was treated with oral deficid, patient is now presented back to the hospital for evaluation of diarrhea that has been getting worse for the last 5 days and combining of 4-5 episodes of loose stools per day patient denies having any blood or mucus in the stool and denies any abdominal pain patient mentioned she did have some dry heaves but no vomiting patient on presentation hospital did have a low-grade fever of 100F she did have a white count of 16,000 with a left shift, patient also have elevated BUN and creatinine levels and has been normal urine was negative stool for C. diff came back positive the patient was started on oral vancomycin infectious disease was consulted for further management of antibiotic therapy Review of Systems Positive point has been mentioned in the HPI rest of the systems are negative Past Medical History Past Medical History: Atrial Fibrillation, Heart Failure, Dementia, Diabetes Mellitus, Hypertension, Pneumonia Additional Past Medical History / Comment(s): TB in 1955, heart murmur History of Any Multi-Drug Resistant Organisms: C-DIFF Year Discovered:: 10/17/22 MDRO Source:: stool Past Surgical History: Hysterectomy Additional Past Surgical History / Comment(s): partial left lung removal at [facility] Past Anesthesia/Blood Transfusion Reactions: No Reported Reaction Past Psychological History: No Psychological Hx Reported Additional Psychological History / Comment(s): Pt resides alone. She uses a cane or walker. She has a glucometer. She no longer drives, her friend takes her to [facility]. She receives MOW. Smoking Status: Never smoker Past Alcohol Use History: Rare Additional Past Alcohol Use History / Comment(s): Pt started smoking as a teen and quit in 1973. Past Drug Use History: None Reported - Past Family History Mother Family Medical History: Cancer Additional Family Medical History / Comment(s): Unknown type of cancer. Father Family Medical History: Myocardial Infarction (PR) Medications and Allergies Home Medications Medication Instructions Recorded Confirmed Type Lovastatin [Mevacor] 20 mg PO HS@2100 05/01/21 11/05/22 History Memantine [Namenda] 10 mg PO BID@0800,1700 05/01/21 11/05/22 History Clopidogrel [Plavix] 75 mg PO DAILY@0800 10/05/22 11/05/22 History Donepezil [Aricept] 5 mg PO DAILY@0800 10/05/22 11/05/22 History Ferrous Sulfate [Iron (65 MG 325 mg PO DAILY@1700 10/05/22 11/05/22 History Elemental)] Acetaminophen [Tylenol Arthritis] 650 mg PO Q4H PRN 10/17/22 11/05/22 History INSULIN ASPART (NovoLOG) [NovoLOG See Protocol SQ ACHS@07,11,1630,10/17/22 11/05/22 History (formulary)] Magnesium Hydroxide [Milk of 7,200 mg PO DAILY PRN 10/17/22 11/05/22 History Magnesia Concentrate] Meclizine [Antivert] 25 mg PO TID-W/MEALS PRN 10/17/22 11/05/22 History Melatonin 1 mg PO HS@2100 10/17/22 11/05/22 History Na Phos,M-B/Na Phos,Di-Ba [Fleet 133 ml RECTAL DAILY PRN 10/17/22 11/05/22 His tory Adult] Nystatin 100,000 Unit/gm Powd 1 applic TOPICAL BID@0800,1700 10/17/22 11/05/22 History [Mycostatin Powder] bisacodyL [Dulcolax] 10 mg RECTAL DAILY PRN 10/17/22 11/05/22 History Menthol/Zinc Oxide [Calprotect 1 applic TOPICAL TID 11/03/22 11/05/22 History 0.44%-20.6% Oint] Pantoprazole Sodium [Protonix] 40 mg PO DAILY@0600 11/03/22 11/05/22 History Lactobacillus Acidoph & Bulgar 1 each PO DAILY packet 11/10/22 Rx [Lactinex] Loperamide [Imodium] 2 mg PO QID PRN cap 11/10/22 Rx Vancomycin 250 mg PO QID 14 Days #112 cap 11/10/22 Rx QUEtiapine [SEROquel] 25 mg PO HS tab 11/12/22 Rx hydrALAZINE HCL [Apresoline] 25 mg PO Q6H PRN #0 11/12/22 11/05/22 Rx Allergies Allergy/AdvReac Type Severity Reaction Status Date / Time Sulfa (Sulfonamide Allergy Rash/Hives Verified 11/05/22 15:11 Antibiotics) Physical Exam Vitals: Vital Signs Temp Pulse Pulse Resp BP BP Pulse Ox 11/06/22 07:00 97.5 F L 75 16 110/62 99 11/06/22 02:13 97.6 F 77 18 108/64 100 11/05/22 23:32 99.0 F 81 98 11/05/22 20:21 100.0 F H 112 H 18 164/79 99 11/05/22 17:30 99.0 F 76 18 138/78 95 11/05/22 16:00 99.0 F 80 20 140/62 95 11/05/22 14:24 99.9 F H 89 18 132/56 95 Intake and Output 11/05/22 11/06/22 11/06/22 22:59 06:59 14:59 Intake Total 90 Balance 90 Intake: Oral 90 Other: Voiding Method External Catheter External Catheter # Voids 0 2 # Bowel Movements 1 3 Weight 86.183 kg GENERAL DESCRIPTION: An elderly female lying in bed, no distress. No tachypnea or accessory muscle of respiration use. HEENT: Shows Pallor , no scleral icterus. Oral mucous membrane is dry. No pharyngeal erythema or thrush NECK: Trachea central, no thyromegaly. LUNGS: Unlabored breathing. Clear to auscultation anteriorly. No wheeze or crackle. HEART: S1, S2, regular rate and rhythm. No loud murmur ABDOMEN: Soft, no tenderness , guarding or rigidity, no organomegaly EXTREMITIES: No edema of feet. SKIN: No rash, no masses palpable. NEUROLOGICAL: The patient is awake, alert, oriented x3, mood and affect normal. Results CBC & Chem 7: 11/09/22 05:53 11/09/22 05:53 Labs: Abnormal Lab Results - Last 24 Hours (Table) 11/05/22 11/05/22 11/05/22 Range/Units 14:55 14:55 14:55 WBC 16.5 H (3.8-10.6) k/uL RBC 3.74 L (3.80-5.40) m/uL Hgb (11.4-16.0) gm/dL MCV (80.0-100.0) fL MCHC (31.0-37.0) g/dL Neutrophils # 14.0 H (1.3-7.7) k/uL Chloride 108 H (98-107) mmol/L Anion Gap (10.00-18.00) mmol/L Creatinine 1.13 H (0.52-1.04) mg/dL Est GFR (CKD-EPI)AfAm (60.0-200.0) Est GFR (CKD-EPI)NonAf (60.0-200.0) BUN/Creatinine Ratio (12.00-20.00) Ratio Glucose 149 H (74-99) mg/dL POC Glucose (mg/dL) (70-110) mg/dL Hemoglobin A1c (0.0-6.0) % Calcium 7.7 L (8.4-10.2) mg/dL AST (13-35) U/L Alkaline Phosphatase 30 L (38-126) U/L Total Protein 5.4 L (6.3-8.2) g/dL Albumin 3.0 L (3.5-5.0) g/dL Globulin (1.6-3.3) g/dL Urine Appearance Turbid H (Clear) Urine Protein 1+ H (Negative) Urine Blood Trace H (Negative) Urine Nitrite Positive H (Negative) Ur Leukocyte Esterase Large H (Negative) Urine WBC 108 H (0-5) /hpf Urine WBC Clumps Occasional H (None) /hpf Ur Squamous Epith Cells 29 H (0-4) /hpf Amorphous Sediment Occasional H (None) /hpf Urine Bacteria Many H (None) /hpf Hyaline Casts 22 H (0-2) /lpf Urine Mucus Many H (None) /hpf C. difficile (EIA) Intrp (Negative) 11/05/22 11/05/22 11/05/22 Range/Units 14:55 20:32 21:58 WBC (3.8-10.6) k/uL RBC (3.80-5.40) m/uL Hgb (11.4-16.0) gm/dL MCV (80.0-100.0) fL MCHC (31.0-37.0) g/dL Neutrophils # (1.3-7.7) k/uL Chloride (98-107) mmol/L Anion Gap (10.00-18.00) mmol/L Creatinine (0.52-1.04) mg/dL Est GFR (CKD-EPI)AfAm (60.0-200.0) Est GFR (CKD-EPI)NonAf (60.0-200.0) BUN/Creatinine Ratio (12.00-20.00) Ratio Glucose (74-99) mg/dL POC Glucose (mg/dL) 179 H 191 H (70-110) mg/dL Hemoglobin A1c 6.7 H (0.0-6.0) % Calcium (8.4-10.2) mg/dL AST (13-35) U/L Alkaline Phosphatase (38-126) U/L Total Protein (6.3-8.2) g/dL Albumin (3.5-5.0) g/dL Globulin (1.6-3.3) g/dL Urine Appearance (Clear) Urine Protein (Negative) Urine Blood (Negative) Urine Nitrite (Negative) Ur Leukocyte Esterase (Negative) Urine WBC (0-5) /hpf Urine WBC Clumps (None) /hpf Ur Squamous Epith Cells (0-4) /hpf Amorphous Sediment (None) /hpf Urine Bacteria (None) /hpf Hyaline Casts (0-2) /lpf Urine Mucus (None) /hpf C. difficile (EIA) Intrp (Negative) 11/06/22 11/06/22 11/06/22 Range/Units 00:17 05:53 05:56 WBC 12.6 H (3.8-10.6) k/uL RBC 3.45 L (3.80-5.40) m/uL Hgb 10.8 L (11.4-16.0) gm/dL MCV 103.5 H D (80.0-100.0) fL MCHC 30.3 L (31.0-37.0) g/dL Neutrophils # 9.1 H (1.3-7.7) k/uL Chloride (98-107) mmol/L Anion Gap (10.00-18.00) mmol/L Creatinine (0.52-1.04) mg/dL Est GFR (CKD-EPI)AfAm (60.0-200.0) Est GFR (CKD-EPI)NonAf (60.0-200.0) BUN/Creatinine Ratio (12.00-20.00) Ratio Glucose (74-99) mg/dL POC Glucose (mg/dL) 150 H (70-110) mg/dL Hemoglobin A1c (0.0-6.0) % Calcium (8.4-10.2) mg/dL AST (13-35) U/L Alkaline Phosphatase (38-126) U/L Total Protein (6.3-8.2) g/dL Albumin (3.5-5.0) g/dL Globulin (1.6-3.3) g/dL Urine Appearance (Clear) Urine Protein (Negative) Urine Blood (Negative) Urine Nitrite (Negative) Ur Leukocyte Esterase (Negative) Urine WBC (0-5) /hpf Urine WBC Clumps (None) /hpf Ur Squamous Epith Cells (0-4) /hpf Amorphous Sediment (None) /hpf Urine Bacteria (None) /hpf Hyaline Casts (0-2) /lpf Urine Mucus (None) /hpf C. difficile (EIA) Intrp Positive A (Negative) 11/06/22 11/06/22 Range/Units 06:01 11:56 WBC (3.8-10.6) k/uL RBC (3.80-5.40) m/uL Hgb (11.4-16.0) gm/dL MCV (80.0-100.0) fL MCHC (31.0-37.0) g/dL Neutrophils # (1.3-7.7) k/uL Chloride 110 H (98-107) mmol/L Anion Gap 8.50 L (10.00-18.00) mmol/L Creatinine 1.6 H (0.52-1.04) mg/dL Est GFR (CKD-EPI)AfAm 33.0 L (60.0-200.0) Est GFR (CKD-EPI)NonAf 28.5 L (60.0-200.0) BUN/Creatinine Ratio 10.94 L (12.00-20.00) Ratio Glucose 152 H (74-99) mg/dL POC Glucose (mg/dL) 171 H (70-110) mg/dL Hemoglobin A1c (0.0-6.0) % Calcium 7.7 L (8.4-10.2) mg/dL AST 11 L (13-35) U/L Alkaline Phosphatase (38-126) U/L Total Protein 4.2 L (6.3-8.2) g/dL Albumin 2.8 L (3.5-5.0) g/dL Globulin 1.4 L (1.6-3.3) g/dL Urine Appearance (Clear) Urine Protein (Negative) Urine Blood (Negative) Urine Nitrite (Negative) Ur Leukocyte Esterase (Negative) Urine WBC (0-5) /hpf Urine WBC Clumps (None) /hpf Ur Squamous Epith Cells (0-4) /hpf Amorphous Sediment (None) /hpf Urine Bacteria (None) /hpf Hyaline Casts (0-2) /lpf Urine Mucus (None) /hpf C. difficile (EIA) Intrp (Negative) Microbiology - Last 24 Hours (Table) 11/05/22 14:55 Urine Culture - Preliminary Urine,Catheterized Assessment and Plan (1) C. difficile colitis Status: Acute Code(s): A04.72 - ENTEROCOLITIS D/T CLOSTRIDIUM DIFFICILE, NOT SPCF RECUR SNOMED Code(s): 648027835 Plan: 1patient with diarrhea in this patient with recurrent C. diff colitis patient recently completed a course of oral deficid according to the notes the patient should have been on oral deficid at this point however she is not a very clear when she completed her course of therapy 2keeping in mind recurrence after finishing a course of deficid we will keep the patient on vancomycin however increase the dose 250 mg by mouth every 6 hours 3patient has been instructed to increase her probiotic any occult intake 4avoid antimotility agents We will follow on clinical condition and cultures to further adjust medication if needed Thank you for this consultation will follow this patient with you Time with Patient: Greater than 30
[2022-11-06] MEDS: ACETAMINOPHEN TAB 325 MG TAB PO PRN (20:56)
[2022-11-06] MEDS: MELATONIN 1 MG TAB PO SCH (20:57)
[2022-11-06] MEDS: FAMOTIDINE 20 MG TAB PO SCH (20:57)
[2022-11-06] MEDS: ATORVASTATIN 10 MG TAB PO SCH (20:57)
[2022-11-06 21:19] LABS: Glucose,Whole Blood 112 mg/dL (70-110)
--- NOTE | 2022-11-07 00:05 | P.HPIM ---
History of Present Illness H&P Date: 11/06/22 Chief Complaint: fever Patient is a 87-year-old female with a known history of atrial fibrillation paroxysmal, hypertension, diabetes type 2 [id number], dementia and recent history of C. difficile colitis and was discharged to extended care facility completed the course with fidaxomicin was sent back to the hospital due to concern for diarrhea. Patient has been having diarrhea for the last 3 days. Patient was found to have T-max of 101 at the facility. Patient received Tylenol prior to transfer. Denied any complaints of chest pain or shortness of breath. No cough or sputum production. Denies any abdominal pain. No flank pain. Laboratory test showed WBC 16.5 hemoglobin 11.6 and platelets 287 Sodium 137 potassium 4.9 chloride 108 bicarb is 24 BUN 49 creatinine 1.13 and blood sugar 149 A1c 6.7 liver enzymes are not elevated and albumin 3.0 Urinalysis showed turbid with trace blood and positive nitrite and large leukocyte esterase with elevated WBCs and many squamous epithelial cells. C. difficile positive Influenza A, B, RSV and SARS-CoV-2 PCR not detected. Review of Systems Constitutional: Patient patient does have fever. No chills. Generalized weakness. Abdomen: Complains of diarrhea. No abdominal pain. No nausea vomiting. Cardiovascular: Patient denies any chest pain or short of breath no palpitations. Respiratory: patient denied any cough . no sputum production. No shortness of breath Neurologic: Patient denied any numbness or tingling headache. Musculoskeletal: Patient denies any complaints of joint swelling or deformity. Skin: Negative Psychiatric: Negative Endocrine: No heat or cold intolerance. No recent weight gain. Genitourinary: No dysuria or hematuria. All other 14 point ROS negative except the above Past Medical History Past Medical History: Atrial Fibrillation, Heart Failure, Dementia, Diabetes Mellitus, Hypertension, Pneumonia Additional Past Medical History / Comment(s): TB in 1955, heart murmur History of Any Multi-Drug Resistant Organisms: C-DIFF Date of last positivie culture/infection: 10/17/22 MDRO Source:: stool Past Surgical History: Hysterectomy Additional Past Surgical History / Comment(s): partial left lung removal at [facility] Past Anesthesia/Blood Transfusion Reactions: No Reported Reaction Past Psychological History: No Psychological Hx Reported Additional Psychological History / Comment(s): Pt resides alone. She uses a cane or walker. She has a glucometer. She no longer drives, her friend takes her to [facility]. She receives MOW. Smoking Status: Never smoker Past Alcohol Use History: Rare Additional Past Alcohol Use History / Comment(s): Pt started smoking as a teen and quit in 1973. Past Drug Use History: None Reported - Past Family History Mother Family Medical History: Cancer Additional Family Medical History / Comment(s): Unknown type of cancer. Father Family Medical History: Myocardial Infarction (DE) Medications and Allergies Home Medications Medication Instructions Recorded Confirmed Type Lovastatin [Mevacor] 20 mg PO HS@209905/01/21 11/05/22 History Memantine [Namenda] 10 mg PO BID@0800,1700 05/01/21 11/05/22 History Clopidogrel [Plavix] 75 mg PO DAILY@0800 10/05/22 11/05/22 History Donepezil [Aricept] 5 mg PO DAILY@0800 10/05/22 11/05/22 History Ferrous Sulfate [Iron (65 MG 325 mg PO DAILY@169910/05/22 11/05/22 History Elemental)] Acetaminophen [Tylenol Arthritis] 650 mg PO Q4H PRN 10/17/22 11/05/22 History INSULIN ASPART (NovoLOG) [NovoLOG See Protocol SQ ACHS@07,11,1630,10/17/22 11/05/22 History (formulary)] Magnesium Hydroxide [Milk of 7,200 mg PO DAILY PRN 10/17/22 11/05/22 History Magnesia Concentrate] Meclizine [Antivert] 25 mg PO TID-W/MEALS PRN 10/17/22 11/05/22 History Melatonin 1 mg PO HS@209910/17/22 11/05/22 History Na Phos,M-B/Na Phos,Di-Ba [Fleet 133 ml RECTAL DAILY PRN 10/17/22 11/05/22 History Adult] Nystatin 100,000 Unit/gm Powd 1 applic TOPICAL BID@0800,1700 10/17/22 11/05/22 History [Mycostatin Powder] bisacodyL [Dulcolax] 10 mg RECTAL DAILY PRN 10/17/22 11/05/22 History hydrALAZINE HCL [Apresoline] 25 mg PO Q6H PRN 10/17/22 11/05/22 History Menthol/Zinc Oxide [Calprotect 1 applic TOPICAL TID 11/03/22 11/05/22 History 0.44%-20.6% Oint] Pantoprazole Sodium [Protonix] 40 mg PO DAILY@0600 11/03/22 11/05/22 History Fidaxomicin [Dificid] 200 mg PO BID@0800,1700 11/05/22 11/05/22 History Kenalog-40 Suspension (40mg/Ml) 40 mg INTRAARTIC DIRECTED 11/05/22 11/05/22 History Lidocaine Hcl 2% Solution 2 ml INTRAARTIC DIRECTED 11/05/22 11/05/22 History Allergies Allergy/AdvReac Type Severity Reaction Status Date / Time Sulfa (Sulfonamide Allergy Rash/Hives Verified 11/05/22 15:11 Antibiotics) Physical Exam Vitals: Vital Signs Temp Pulse Pulse Resp BP BP Pulse Ox 11/06/22 07:00 97.5 F L 75 16 110/62 99 11/06/22 02:13 97.6 F 77 18 108/64 100 11/05/22 23:32 99.0 F 81 98 11/05/22 20:21 100.0 F H 112 H 18 164/79 99 11/05/22 17:30 99.0 F 76 18 138/78 95 11/05/22 16:00 99.0 F 80 20 140/62 95 11/05/22 14:24 99.9 F H 89 18 132/56 95 Intake and Output 11/05/22 11/06/22 11/06/22 22:59 06:59 14:59 Intake Total 90 Balance 90 Intake: Oral 90 Other: Voiding Method External Catheter External Catheter # Voids 0 2 # Bowel Movements 1 3 Weight 86.183 kg PHYSICAL EXAMINATION: Patient is lying in the bed comfortably, no acute distress, awake alert and thu ented.. HEENT: Normocephalic. Neck is supple. Pupils reactive. Nostrils clear. Oral cavity is moist. Neck reveals no JVD, carotid bruits, or thyromegaly. CHEST EXAMINATION: Trachea is central. Symmetrical expansion. Lung walker clear to auscultation and percussion. CARDIAC: Normal S1, S2 with no gallops. No murmurs ABDOMEN: Soft. Bowel sounds present. Nontender. No organomegaly. No abdominal bruits. Extremities: reveal no edema. No clubbing or cyanosis Neurologically awake, alert, oriented. Patient does have cognitive impairment. Able to move extremities while in bed.. No gross focal deficits noted Skin: No rash or skin lesions. Psychiatric: Coperative. Nonsuicidal, Musculoskeletal: No joint swelling or deformity. Normal range of motion. Results CBC & Chem 7: 11/06/22 05:56 11/06/22 06:01 Labs: Abnormal Lab Results - Last 24 Hours (Table) 11/05/22 11/05/22 11/05/22 Range/Units 14:55 14:55 14:55 WBC 16.5 H (3.8-10.6) k/uL RBC 3.74 L (3.80-5.40) m/uL Hgb (11.4-16.0) gm/dL MCV (80.0-100.0) fL MCHC (31.0-37.0) g/dL Neutrophils # 14.0 H (1.3-7.7) k/uL Chloride 108 H (98-107) mmol/L Anion Gap (10.00-18.00) mmol/L Creatinine 1.13 H (0.52-1.04) mg/dL Est GFR (CKD-EPI)AfAm (60.0-200.0) Est GFR (CKD-EPI)NonAf (60.0-200.0) BUN/Creatinine Ratio (12.00-20.00) Ratio Glucose 149 H (74-99) mg/dL POC Glucose (mg/dL) (70-110) mg/dL Hemoglobin A1c (0.0-6.0) % Calcium 7.7 L (8.4-10.2) mg/dL AST (13-35) U/L Alkaline Phosphatase 30 L (38-126) U/L Total Protein 5.4 L (6.3-8.2) g/dL Albumin 3.0 L (3.5-5.0) g/dL Globulin (1.6-3.3) g/dL Urine Appearance Turbid H (Clear) Urine Protein 1+ H (Negative) Urine Blood Trace H (Negative) Urine Nitrite Positive H (Negative) Ur Leukocyte Esterase Large H (Negative) Urine WBC 108 H (0-5) /hpf Urine WBC Clumps Occasional H (None) /hpf Ur Squamous Epith Cells 29 H (0-4) /hpf Amorphous Sediment Occasional H (None) /hpf Urine Bacteria Many H (None) /hpf Hyaline Casts 22 H (0-2) /lpf Urine Mucus Many H (None) /hpf C. difficile (EIA) Intrp (Negative) 11/05/22 11/05/22 11/05/22 Range/Units 14:55 20:32 21:58 WBC (3.8-10.6) k/uL RBC (3.80-5.40) m/uL Hgb (11.4-16.0) gm/dL MCV (80.0-100.0) fL MCHC (31.0-37.0) g/dL Neutrophils # (1.3-7.7) k/uL Chloride (98-107) mmol/L Anion Gap (10.00-18.00) mmol/L Creatinine (0.52-1.04) mg/dL Est GFR (CKD-EPI)AfAm (60.0-200.0) Est GFR (CKD-EPI)NonAf (60.0-200.0) BUN/Creatinine Ratio (12.00-20.00) Ratio Glucose (74-99) mg/dL POC Glucose (mg/dL) 179 H 191 H (70-110) mg/dL Hemoglobin A1c 6.7 H (0.0-6.0) % Calcium (8.4-10.2) mg/dL AST (13-35) U/L Alkaline Phosphatase (38-126) U/L Total Protein (6.3-8.2) g/dL Albumin (3.5-5.0) g/dL Globulin (1.6-3.3) g/dL Urine Appearance (Clear) Urine Protein (Negative) Urine Blood (Negative) Urine Nitrite (Negative) Ur Leukocyte Esterase (Negative) Urine WBC (0-5) /hpf Urine WBC Clumps (None) /hpf Ur Squamous Epith Cells (0-4) /hpf Amorphous Sediment (None) /hpf Urine Bacteria (None) /hpf Hyaline Casts (0-2) /lpf Urine Mucus (None) /hpf C. difficile (EIA) Intrp (Negative) 11/06/22 11/06/22 11/06/22 Range/Units 00:17 05:53 05:56 WBC 12.6 H (3.8-10.6) k/uL RBC 3.45 L (3.80-5.40) m/uL Hgb 10.8 L (11.4-16.0) gm/dL MCV 103.5 H D (80.0-100.0) fL MCHC 30.3 L (31.0-37.0) g/dL Neutrophils # 9.1 H (1.3-7.7) k/uL Chloride (98-107) mmol/L Anion Gap (10.00-18.00) mmol/L Creatinine (0.52-1.04) mg/dL Est GFR (CKD-EPI)AfAm (60.0-200.0) Est GFR (CKD-EPI)NonAf (60.0-200.0) BUN/Creatinine Ratio (12.00-20.00) Ratio Glucose (74-99) mg/dL POC Glucose (mg/dL) 150 H (70-110) mg/dL Hemoglobin A1c (0.0-6.0) % Calcium (8.4-10.2) mg/dL AST (13-35) U/L Alkaline Phosphatase (38-126) U/L Total Protein (6.3-8.2) g/dL Albumin (3.5-5.0) g/dL Globulin (1.6-3.3) g/dL Urine Appearance (Clear) Urine Protein (Negative) Urine Blood (Negative) Urine Nitrite (Negative) Ur Leukocyte Esterase (Negative) Urine WBC (0-5) /hpf Urine WBC Clumps (None) /hpf Ur Squamous Epith Cells (0-4) /hpf Amorphous Sediment (None) /hpf Urine Bacteria (None) /hpf Hyaline Casts (0-2) /lpf Urine Mucus (None) /hpf C. difficile (EIA) Intrp Positive A (Negative) 11/06/22 Range/Units 06:01 WBC (3.8-10.6) k/uL RBC (3.80-5.40) m/uL Hgb (11.4-16.0) gm/dL MCV (80.0-100.0) fL MCHC (31.0-37.0) g/dL Neutrophils # (1.3-7.7) k/uL Chloride 110 H (98-107) mmol/L Anion Gap 8.50 L (10.00-18.00) mmol/L Creatinine 1.6 H (0.52-1.04) mg/dL Est GFR (CKD-EPI)AfAm 33.0 L (60.0-200.0) Est GFR (CKD-EPI)NonAf 28.5 L (60.0-200.0) BUN/Creatinine Ratio 10.94 L (12.00-20.00) Ratio Glucose 152 H (74-99) mg/dL POC Glucose (mg/dL) (70-110) mg/dL Hemoglobin A1c (0.0-6.0) % Calcium 7.7 L (8.4-10.2) mg/dL AST 11 L (13-35) U/L Alkaline Phosphatase (38-126) U/L Total Protein 4.2 L (6.3-8.2) g/dL Albumin 2.8 L (3.5-5.0) g/dL Globulin 1.4 L (1.6-3.3) g/dL Urine Appearance (Clear) Urine Protein (Negative) Urine Blood (Negative) Urine Nitrite (Negative) Ur Leukocyte Esterase (Negative) Urine WBC (0-5) /hpf Urine WBC Clumps (None) /hpf Ur Squamous Epith Cells (0-4) /hpf Amorphous Sediment (None) /hpf Urine Bacteria (None) /hpf Hyaline Casts (0-2) /lpf Urine Mucus (None) /hpf C. difficile (EIA) Intrp (Negative) Microbiology - Last 24 Hours (Table) 11/05/22 14:55 Urine Culture - Preliminary Urine,Catheterized Thrombosis Risk Factor Assmnt - DVT/VTE Prophylaxis DVT/VTE Prophylaxis: Pharmacologic Prophylaxis ordered Assessment and Plan Assessment: Recurrent C. difficile colitis with diarrhea and low-grade fever and recent completion of oral course with fidaxomicin. Abnormal urine sample. Follow-up urine culture report Paroxysmal atrial fibrillation currently not on any anticoagulation Dementia Hypertension Diabetes type 2 [id number] DVT prophylaxis Plan: Patient admitted on IV hydration with normal saline. Started on vancomycin p.o. dose increase it to 250 mg 4 times daily Continue the probiotic Follow-up urine culture report. Current home medications. ID is on board. Time with Patient: Greater than 30
[2022-11-07] MEDS: PANTOPRAZOLE 40 MG TABLET PO SCH (05:47)
[2022-11-07] MEDS: INSULIN ASPART (NovoLOG) 100 UNIT/ML VIAL SQ SCH ×4 (05:48→21:02)
[2022-11-07 05:49] LABS: Glucose,Whole Blood 117 mg/dL (70-110)
[2022-11-07] MEDS: CLOPIDOGREL 75 MG TAB PO SCH (09:07)
[2022-11-07] MEDS: VANCOMYCIN 125 MG CAPSULE PO SCH ×4 (09:08→21:03)
[2022-11-07] MEDS: DONEPEZIL 5 MG TAB PO SCH (09:08)
[2022-11-07 10:13] LABS: Anion Gap 11.4 mmol/L (10.00-18.00); BUN/Creat Ratio 13.62 Ratio (12.00-20.00); Blood Urea Nitrogen 20.3 mg/dL (9.0-27.0); Calcium 7.6 mg/dL (8.7-10.3); Carbon Dioxide 19.7 mmol/L (20.0-27.5); Potassium 3.5 mmol/L (3.5-5.5)
[2022-11-07 10:34] LABS: HCT 31.8 % (37.2-46.3); HGB 9.3 g/dL (12.0-15.0); MCH 30.1 pg (27.0-32.0); MCHC 29.2 g/dL (32.0-37.0); MCV 102.9 fL (80.0-97.0); Mean Platelet Volume 10.4 fL (9.5-12.2); NRBC Per 100 WBC 0 /100 WBCS (0.0-0.0); Platelet Count 213 X 10*3/uL (140-440); RBC 3.09 X 10*6/uL (4.10-5.20); RDW 13.6 % (11.5-14.5); WBC 7.67 X 10*3/uL (4.50-10.00)
[2022-11-07 11:18] LABS: Basophils # (A) 0.03 X 10*3/uL (0.00-0.10); Basophils % (A) 0.4 %; Eosinophils % (A) 2.6 %; Immature Grans, Automated 0.7 %; Lymphocytes # (A) 1.72 X 10*3/uL (0.90-5.00); Lymphocytes % (A) 22.4 %; Monocytes # (A) 0.68 X 10*3/uL (0.20-1.00); Monocytes % (A) 8.9 %; Neutrophils # (A) 4.99 X 10*3/uL (1.80-7.70)
[2022-11-07 12:53] LABS: Glucose,Whole Blood 127 mg/dL (70-110)
[2022-11-07 17:18] LABS: Glucose,Whole Blood 133 mg/dL (70-110)
[2022-11-07] MEDS: SODIUM CHLORIDE 0.9% 1,000 ML IV SCH (17:49)
[2022-11-07 20:37] LABS: Glucose,Whole Blood 135 mg/dL (70-110)
[2022-11-07] MEDS: MELATONIN 1 MG TAB PO SCH (21:02)
[2022-11-07] MEDS: ATORVASTATIN 10 MG TAB PO SCH (21:02)
[2022-11-07] MEDS: FAMOTIDINE 20 MG TAB PO SCH (21:02)
[2022-11-08] MEDS: SODIUM CHLORIDE 0.9% 1,000 ML IV SCH ×2 (00:25→15:19)
--- NOTE | 2022-11-08 02:21 | P.PN ---
Subjective Progress Note Date: 11/07/22 Patient is a 87-year-old female with a known history of atrial fibrillation paroxysmal, hypertension, diabetes type 2 [id number]-lyxdcea-vrrvnxyel, dementia and recent history of C. difficile colitis and was discharged to extended care facility completed the course with fidaxomicin was sent back to the hospital due to concern for diarrhea. Patient has been having diarrhea for the last 3 days. Patient was found to have T-max of 101 at the facility. Patient received Tylenol prior to transfer. Denied any complaints of chest pain or shortness of breath. No cough or sputum production. Denies any abdominal pain. No flank pain. Laboratory test showed WBC 16.5 hemoglobin 11.6 and platelets 287 Sodium 137 potassium 4.9 chloride 108 bicarb is 24 BUN 49 creatinine 1.13 and blood sugar 149 A1c 6.7 liver enzymes are not elevated and albumin 3.0 Urinalysis showed turbid with trace blood and positive nitrite and large leukocyte esterase with elevated WBCs and many squamous epithelial cells. C. difficile positive Influenza A, B, RSV and SARS-CoV-2 PCR not detected. [id number] Patient is currently resting in the bed. Awake alert and oriented x2-3. Denies any complaints of abdominal pain. 1 episode of diarrhea this morning. Currently on vancomycin 250 mg daily. ID is on board. Patient has been afebrile. No complaints of chest pain or shortness of breath. No nausea or vomiting. No cough or sputum production. Patient has been afebrile. Patient will be started on ceftriaxone for urinary tract infection. Follow-up final culture report. Laboratory data showed WBC 7.6 hemoglobin 9.3 and platelets 213 Sodium 142 potassium 3.5 chloride 109 bicarb is 19.7 BUN 20.3 and creatinine 1.4 and calcium 7.6. Current medications reviewed. Objective - Vital Signs Vital signs: Vital Signs Temp 98.3 F 11/07/22 19:09 Pulse 85 11/07/22 19:09 Resp 18 11/07/22 19:09 BP 129/69 11/07/22 19:09 Pulse Ox 96 11/07/22 19:09 FiO2 Intake & Output 11/07/22 11/07/22 11/08/22 06:59 18:59 06:59 Intake Total 478 Output Total 1 Balance 477 Intake: Oral 478 Output: Urine/Stool Mix 1 Other: Voiding Method Incontinent # Voids 3 1 # Bowel Movements 3 - Exam PHYSICAL EXAMINATION: Patient is lying in the bed comfortably, no acute distress, awake alert and oriented.. HEENT: Normocephalic. Neck is supple. Pupils reactive. Nostrils clear. Oral cavity is moist. Neck reveals no JVD, carotid bruits, or thyromegaly. CHEST EXAMINATION: Trachea is central. Symmetrical expansion. Lung walker clear to auscultation and percussion. CARDIAC: Normal S1, S2 with no gallops. No murmurs ABDOMEN: Soft. Bowel sounds present. Nontender. No organomegaly. No abdominal bruits. Extremities: reveal no edema. No clubbing or cyanosis Neurologically awake, alert, oriented. Patient does have cognitive impairment. Able to move extremities while in bed.. No gross focal deficits noted Skin: No rash or skin lesions. Psychiatric: Coperative. Nonsuicidal, Musculoskeletal: No joint swelling or deformity. Normal range of motion. - Labs CBC & Chem 7: 11/07/22 06:23 11/07/22 06:23 Labs: Abnormal Lab Results - Last 24 Hours (Table) 11/07/22 11/07/22 11/07/22 Range/Units 05:47 06:23 06:23 RBC 3.09 L (4.10-5.20) X 10*6/uL Hgb 9.3 L (12.0-15.0) g/dL Hct 31.8 L (37.2-46.3) % MCV 102.9 H (80.0-97.0) fL MCHC 29.2 L (32.0-37.0) g/dL Immature Gran # 0.05 H (0.00-0.04) X 10*3/uL Chloride 111 H (96-109) mmol/L Carbon Dioxide 19.7 L (20.0-27.5) mmol/L Est GFR (CKD-EPI)AfAm 36.0 L (60.0-200.0) Est GFR (CKD-EPI)NonAf 31.0 L (60.0-200.0) Glucose 116 H (70-110) mg/dL POC Glucose (mg/dL) 117 H (70-110) mg/dL Calcium 7.6 L (8.7-10.3) mg/dL 11/07/22 11/07/2211/07/23 Range/Units 12:51 17:13 20:36 RBC (4.10-5.20) X 10*6/uL Hgb (12.0-15.0) g/dL Hct (37.2-46.3) % MCV (80.0-97.0) fL MCHC (32.0-37.0) g/dL Immature Gran # (0.00-0.04) X 10*3/uL Chloride (96-109) mmol/L Carbon Dioxide (20.0-27.5) mmol/L Est GFR (CKD-EPI)AfAm (60.0-200.0) Est GFR (CKD-EPI)NonAf (60.0-200.0) Glucose (70-110) mg/dL POC Glucose (mg/dL) 127 H 133 H 135 H (70-110) mg/dL Calcium (8.7-10.3) mg/dL Microbiology - Last 24 Hours (Table) 11/05/22 14:35 Blood Culture - Preliminary Blood No Growth after 48 hours 11/05/22 14:55 Blood Culture - Preliminary Blood No Growth after 48 hours 11/05/22 14:55 Urine Culture - Preliminary Urine,Catheterized Gram Neg Bacilli Assessment and Plan Assessment: Recurrent C. difficile colitis with diarrhea and low-grade fever and recent completion of oral course with fidaxomicin. Abnormal urine sample.Possible urinary tract infection. Follow-up urine culture report Paroxysmal atrial fibrillation currently not on any anticoagulation Dementia Hypertension Diabetes type 2 [id number] DVT prophylaxis Plan: Patient admitted on IV hydration with normal saline. Started on vancomycin p.o. dose increase it to 250 mg 4 times daily Continue the probiotic Follow-up urine culture report. Current home medications. ID is on board. Time with Patient: Greater than 30
[2022-11-08] MEDS: PANTOPRAZOLE 40 MG TABLET PO SCH (06:01)
[2022-11-08] MEDS: INSULIN ASPART (NovoLOG) 100 UNIT/ML VIAL SQ SCH ×4 (06:02→20:56)
[2022-11-08 06:03] LABS: Glucose,Whole Blood 130 mg/dL (70-110)
--- NOTE | 2022-11-08 08:20 | P.PN ---
Subjective Progress Note Date: 11/07/22 Principal diagnosis: C. diff colitis Patient is an 87 year old female with a past medical history significant for atrial fibrillation heart failure hypertension diabetes mellitus she was recently admitted to this facility and of September and the patient was diagnosed and treated for C. diff colitis in this patient was treated with oral deficid, patient is now presented back to the hospital for evaluation of diarrhea that has been getting worse for the last 5 days with a repeat stool for C. diff positive. On today's evaluation that is on 06/19/2023, the patient fever has resolved patient is feeling slightly better mentioned that diarrhea has slowed down, she still has about 6 episodes of BM today denies abdominal pain no nausea no vomiting no urinary symptoms no chest pain shortness of breath or cough Objective - Vital Signs Vital signs: Vital Signs Temp 97.8 F 11/07/22 15:00 Pulse 78 11/07/22 15:00 Resp 16 11/07/22 15:00 BP 136/56 11/07/22 15:00 Pulse Ox 96 11/07/22 15:00 FiO2 Intake & Output 11/06/22 11/07/22 11/07/22 18:59 06:59 18:59 Intake Total 208 238 Output Total 4 1 Balance 204 237 Intake: Oral 208 238 Output: Urine/Stool Mix 4 1 Other: Voiding Method Incontinent # Voids 3 3 1 # Bowel Movements 3 - Exam GENERAL DESCRIPTION: An elderly female lying in bed in no distress RESPIRATORY SYSTEM: Unlabored breathing , decreased breath sounds at bases HEART: S1 S2 regular rate and rhythm , ABDOMEN: Soft , no tenderness EXTREMITIES: No edema feet - Labs CBC & Chem 7: 11/07/22 06:23 11/07/22 06:23 Labs: Abnormal Lab Results - Last 24 Hours (Table) 11/06/22 11/07/22 11/07/22 Range/Units 21:18 05:47 06:23 RBC 3.09 L (4.10-5.20) X 10*6/uL Hgb 9.3 L (12.0-15.0) g/dL Hct 31.8 L (37.2-46.3) % MCV 102.9 H (80.0-97.0) fL MCHC 29.2 L (32.0-37.0) g/dL Immature Gran # 0.05 H (0.00-0.04) X 10*3/uL Chloride (96-109) mmol/L Carbon Dioxide (20.0-27.5) mmol/L Est GFR (CKD-EPI)AfAm (60.0-200.0) Est GFR (CKD-EPI)NonAf (60.0-200.0) Glucose (70-110) mg/dL POC Glucose (mg/dL) 112 H 117 H (70-110) mg/dL Calcium (8.7-10.3) mg/dL 11/07/22 11/07/22 11/07/22 Range/Units : 12:51 17:13 RBC (4.10-5.20) X 10*6/uL Hgb (12.0-15.0) g/dL Hct (37.2-46.3) % MCV (80.0-97.0) fL MCHC (32.0-37.0) g/dL Immature Gran # (0.00-0.04) X 10*3/uL Chloride 111 H (96-109) mmol/L Carbon Dioxide 19.7 L (20.0-27.5) mmol/L Est GFR (CKD-EPI)AfAm 36.0 L (60.0-200.0) Est GFR (CKD-EPI)NonAf 31.0 L (60.0-200.0) Glucose 116 H (70-110) mg/dL POC Glucose (mg/dL) 127 H 133 H (70-110) mg/dL Calcium 7.6 L (8.7-10.3) mg/dL Microbiology - Last 24 Hours (Table) 11/05/22 14:35 Blood Culture - Preliminary Blood No Growth after 48 hours 11/05/22 14:55 Blood Culture - Preliminary Blood No Growth after 48 hours 11/05/22 14:55 Urine Culture - Preliminary Urine,Catheterized Gram Neg Bacilli Assessment and Plan (1) C. difficile colitis Current Visit: No Status: Acute Code(s): A04.72 - ENTEROCOLITIS D/T CLOSTRIDIUM DIFFICILE, NOT SPCF RECUR SNOMED Code(s): 089016001 Plan: 1patient with diarrhea in this patient with recurrent C. diff colitis patient recently completed a course of oral deficid according to the notes the patient should have been on oral deficid at this point however she is not a very clear when she completed her course of therapy 2patient to continue with 250 mg by mouth every 6 hours 3patient has been instructed to increase her probiotic any occult intake 4patient did have a positive urine culture but no urinary symptoms likely asymptomatic bacteriuria keeping in mind active C. diff colitis will recommended against any antibiotics for the positive urine culture Time with Patient: Less than 30
[2022-11-08] MEDS: CLOPIDOGREL 75 MG TAB PO SCH (08:26)
[2022-11-08] MEDS: POTASSIUM CHLORIDE ER 20 MEQ TAB.ER PO SCH ×2 (08:26→20:57)
[2022-11-08] MEDS: VANCOMYCIN 125 MG CAPSULE PO SCH ×4 (08:26→20:57)
[2022-11-08] MEDS: DONEPEZIL 5 MG TAB PO SCH (08:26)
[2022-11-08 08:46] LABS: HCT 31.8 % (37.2-46.3); HGB 9.1 g/dL (12.0-15.0); MCH 29.9 pg (27.0-32.0); MCHC 28.6 g/dL (32.0-37.0); MCV 104.6 fL (80.0-97.0); Mean Platelet Volume 10.5 fL (9.5-12.2); NRBC Per 100 WBC 0 /100 WBCS (0.0-0.0); Platelet Count 231 X 10*3/uL (140-440); RBC 3.04 X 10*6/uL (4.10-5.20); RDW 13.5 % (11.5-14.5); WBC 5.48 X 10*3/uL (4.50-10.00)
[2022-11-08 09:02] LABS: African American GFR (CKD) 42.4 (60.0-200.0); Anion Gap 4.8 mmol/L (10.00-18.00); BUN/Creat Ratio 14.38 Ratio (12.00-20.00); Blood Urea Nitrogen 18.7 mg/dL (9.0-27.0); Calcium 7.7 mg/dL (8.7-10.3); Carbon Dioxide 26.2 mmol/L (20.0-27.5); Non-African American GFR(CKD) 36.6 (60.0-200.0); Potassium 3.5 mmol/L (3.5-5.5)
[2022-11-08 10:11] LABS: Basophils # (A) 0.05 X 10*3/uL (0.00-0.10); Basophils % (A) 0.9 %; Eosinophils # (A) 0.18 X 10*3/uL (0.04-0.35); Eosinophils % (A) 3.3 %; Immature Grans, Automated 1.3 %; Lymphocytes # (A) 1.21 X 10*3/uL (0.90-5.00); Lymphocytes % (A) 22.1 %; Monocytes # (A) 0.53 X 10*3/uL (0.20-1.00); Monocytes % (A) 9.7 %; Neutrophils # (A) 3.44 X 10*3/uL (1.80-7.70); Neutrophils % (A) 62.7 %
[2022-11-08 12:21] LABS: Glucose,Whole Blood 127 mg/dL (70-110)
--- NOTE | 2022-11-08 12:21 | P.PN ---
Subjective Progress Note Date: 11/08/22 Principal diagnosis: C. diff colitis Patient is an 87 year old female with a past medical history significant for atrial fibrillation heart failure hypertension diabetes mellitus she was recently admitted to this facility and of September and the patient was diagnosed and treated for C. diff colitis in this patient was treated with oral deficid, patient is now presented back to the hospital for evaluation of diarrhea that has been getting worse for the last 5 days with a repeat stool for C. diff positive. On today's evaluation that is on 11/08/2022, the patient denies any fever or any chills, patient is feeling slightly better mentioned and the patient diarrhea h as slowed down, none since morning, the patient denies abdominal pain no nausea no vomiting no urinary symptoms no chest pain shortness of breath or cough Objective - Vital Signs Vital signs: Vital Signs Temp 97.5 F L 11/08/22 07:00 Pulse 75 11/08/22 08:00 Resp 17 11/08/22 08:00 BP 131/65 11/08/22 07:00 Pulse Ox 95 11/08/22 07:00 FiO2 Intake & Output 11/07/22 11/08/22 11/08/22 18:59 06:59 18:59 Intake Total 478 100 Output Total 1 Balance 477 100 Intake: Oral 478 100 Output: Urine/Stool Mix 1 Other: Voiding Method Incontinent Incontinent Incontinent # Voids 1 4 2 # Bowel Movements 4 2 - Exam GENERAL DESCRIPTION: An elderly female lying in bed in no distress RESPIRATORY SYSTEM: Unlabored breathing , decreased breath sounds at bases HEART: S1 S2 regular rate and rhythm , ABDOMEN: Soft , no tenderness EXTREMITIES: No edema feet - Labs CBC & Chem 7: 11/08/22 05:43 11/08/22 05:43 Labs: Abnormal Lab Results - Last 24 Hours (Table) 11/07/22 11/07/22 11/07/22 Range/Units 12:51 17:13 20:36 RBC (4.10-5.20) X 10*6/uL Hgb (12.0-15.0) g/dL Hct (37.2-46.3) % MCV (80.0-97.0) fL MCHC (32.0-37.0) g/dL Immature Gran # (0.00-0.04) X 10*3/uL Chloride (96-109) mmol/L Anion Gap (10.00-18.00) mmol/L Est GFR (CKD-EPI)AfAm (60.0-200.0) Est GFR (CKD-EPI)NonAf (60.0-200.0) Glucose (70-110) mg/dL POC Glucose (mg/dL) 127 H 133 H 135 H (70-110) mg/dL Calcium (8.7-10.3) mg/dL 11/08/22 11/08/22 11/08/22 Range/Units 05:43 05:43 06:01 RBC 3.04 L (4.10-5.20) X 10*6/uL Hgb 9.1 L (12.0-15.0) g/dL Hct 31.8 L (37.2-46.3) % MCV 104.6 H (80.0-97.0) fL MCHC 28.6 L (32.0-37.0) g/dL Immature Gran # 0.07 H (0.00-0.04) X 10*3/uL Chloride 114 H (96-109) mmol/L Anion Gap 4.80 L (10.00-18.00) mmol/L Est GFR (CKD-EPI)AfAm 42.4 L (60.0-200.0) Est GFR (CKD-EPI)NonAf 36.6 L (60.0-200.0) Glucose 127 H (70-110) mg/dL POC Glucose (mg/dL) 130 H (70-110) mg/dL Calcium 7.7 L (8.7-10.3) mg/dL Microbiology - Last 24 Hours (Table) 11/05/22 14:55 Urine Culture - Final Urine,Catheterized Klebsiella pneumoniae Escherichia coli 11/05/22 14:35 Blood Culture - Preliminary Blood No Growth after 48 hours 11/05/22 14:55 Blood Culture - Preliminary Blood No Growth after 48 hours Assessment and Plan (1) C. difficile colitis Current Visit: No Status: Acute Code(s): A04.72 - ENTEROCOLITIS D/T C LOSTRIDIUM DIFFICILE, NOT SPCF RECUR SNOMED Code(s): 831910931 Plan: 1patient with diarrhea in this patient with recurrent C. diff colitis patient recently completed a course of oral deficid according to the notes the patient should have been on oral deficid at this point however she is not a very clear when she completed her course of therapy 2patient to continue with 250 mg by mouth every 6 hours as the patient simply had was some clinical improvement and patient has been instructed to increase her probiotic any occult intake 3patient did have a positive urine culture but no urinary symptoms likely asymptomatic bacteriuria keeping in mind active C. diff colitis will monitor the patient closely off antibiotic therapy for the positive urine culture Time with Patient: Less than 30
[2022-11-08] MEDS ORDERED: LOPERAMIDE 2 MG CAP PO PRN (13:33)
[2022-11-08] MEDS: CHOLESTYRAMINE (WITH SUGAR) 4 GM PACKET PO SCH ×2 (15:19→18:01)
[2022-11-08 17:34] LABS: Glucose,Whole Blood 131 mg/dL (70-110)
[2022-11-08] MEDS: LACTOBACILLUS ACIDOPH & BULGAR 1 EACH PACKET PO SCH (18:51)
--- NOTE | 2022-11-08 19:12 | P.PN ---
Subjective Progress Note Date: 11/08/22 Patient is a 87-year-old female with a known history of atrial fibrillation paroxysmal, hypertension, diabetes type 2 uzl-ikzcygj-xddbjsjpt, dementia and recent history of C. difficile colitis and was discharged to extended care facility completed the course with fidaxomicin was sent back to the hospital due to concern for diarrhea. Patient has been having diarrhea for the last 3 days. Patient was found to have T-max of 101 at the facility. Patient received Tylenol prior to transfer. Denied any complaints of chest pain or shortness of breath. No cough or sputum production. Denies any abdominal pain. No flank pain. Laboratory test showed WBC 16.5 hemoglobin 11.6 and platelets 287 Sodium 137 potassium 4.9 chloride 108 bicarb is 24 BUN 49 creatinine 1.13 and blood sugar 149 A1c 6.7 liver enzymes are not elevated and albumin 3.0 Urinalysis showed turbid with trace blood and positive nitrite and large leukocyte esterase with elevated WBCs and many squamous epithelial cells. C. difficile positive Influenza A, B, RSV and SARS-CoV-2 PCR not detected. 11/07/2022 Patient is currently resting in the bed. Awake alert and oriented x2-3. Denies any complaints of abdominal pain. 1 episode of diarrhea this morning. Currently on vancomycin 250 mg daily. ID is on board. Patient has been afebrile. No complaints of chest pain or shortness of breath. No nausea or vomiting. No cough or sputum production. Patient has been afebrile. Patient will be started on ceftriaxone for urinary tract infection. Follow-up final culture report. Laboratory data showed WBC 7.6 hemoglobin 9.3 and platelets 213 Sodium 142 potassium 3.5 chloride 109 bicarb is 19.7 BUN 20.3 and creatinine 1.4 and calcium 7.6. 11/08/2022 Patient is seen in follow-up today with infectious disease following. Patient continues to have multiple episodes of diarrhea has been started on vancomycin. Patient also continues to report discomfort of her bottom and recommend a shower today. Patient will be started on Questran and also Imodium as needed and will follow-up with labs in the a.m. Discussed with infectious disease and working with Silas about overall treatment as patient was discharged on facility and completed a course and was to reinitiate although continued to have worsening diarrhea. Patient is showing minimal improvement on Vanco and will continue and will add Questran. Encourage oral intake especially probiotic with yogurt each meal. . Review of systems: Constitutional: No reports of fatigue, fever, or chills Cardiovascular: No reports of chest pain or palpitations Respiratory: No reports of shortness of breath or cough GI: No reports of nausea, vomiting, reports continued diarrhea, poor appetite : No reports of dysuria or retention Neurovascular: reports of generalized weakness All medications have been reviewed Active Medications Acetaminophen (Acetaminophen Tab 325 Mg Tab) 650 mg PO Q6HR PRN PRN Reason: Fever and/ or Pain Last Admin: 11/06/22 20:56 Dose: 650 mg Atorvastatin Calcium (Atorvastatin 10 Mg Tab) 10 mg PO HS@2100 [facility] Last Admin: 11/07/22 21:02 Dose: 10 mg Cholestyramine Resin (Cholestyramine (With Sugar) 4 Gm Packet) 4 gm PO BID@1000,1800 [facility] Last Admin: 11/08/22 15:19 Dose: 4 gm Clopidogrel Bisulfate (Clopidogrel 75 Mg Tab) 75 mg PO DAILY@0800 [facility] Last Admin: 11/08/22 08:26 Dose: 75 mg Dextrose/Water (Dextrose 50% Syringe 50 Ml) 25 ml IVP PER PROTOCOL PRN; Protocol PRN Reason: Hypoglycemia Dextrose/Water (Dextrose 50% Syringe 50 Ml) 50 ml IVP PER PROTOCOL PRN; Protocol PRN Reason: Hypoglycemia Donepezil HCl (Donepezil 5 Mg Tab) 5 mg PO DAILY@0800 [facility] Last Admin: 11/08/22 08:26 Dose: 5 mg Famotidine (Famotidine 20 Mg Tab) 20 mg PO [facility] Last Admin: 11/07/22 21:02 Dose: 20 mg Sodium Chloride (Saline 0.9%) 1,000 mls @ 75 mls/hr IV .[id number] [facility] Last Admin: 11/08/22 15:19 Dose: 75 mls/hr Insulin Aspart (Insulin Aspart (Novolog) 100 Unit/Ml Vial) 0 unit SQ [facility]; Protocol Last Admin: 11/08/22 15:19 Dose: Not Given Loperamide HCl (Loperamide 2 Mg Cap) 2 mg PO QID PRN PRN Reason: Diarrhea Melatonin (Melatonin 1 Mg Tab) 1 mg PO HS@2100 [facility] Last Admin: 11/07/22 21:02 Dose: 1 mg Naloxone HCl (Naloxone 0.4 Mg/Ml 1 Ml Vial) 0.2 mg IV Q2M PRN PRN Reason: Opioid Reversal Ondansetron HCl (Ondansetron 4 Mg/2 Ml Vial) 4 mg IVP Q6HR PRN PRN Reason: Nausea And Vomiting Last Admin: 11/07/22 10:57 Dose: 4 mg Pantoprazole Sodium (Pantoprazole 40 Mg Tablet) 40 mg PO DAILY@0600 [facility] Last Admin: 11/08/22 06:01 Dose: 40 mg Potassium Chloride (Potassium Chloride Er 20 Meq Tab.Er) 20 meq PO BID [facility] Stop: 11/08/22 21:01 Last Admin: 11/08/22 08:26 Dose: 20 meq Vancomycin HCl (Vancomycin 125 Mg Capsule) 250 mg PO QID [facility]; Protocol Last Admin: 11/08/22 15:19 Dose: 250 mg Physical exam: Patient is lying in the bed uncomfortable, agitated, awake alert and oriented.. HEENT: Normocephalic. Neck is supple. Pupils reactive. Nostrils clear. Oral cavity is moist. Neck reveals no JVD, carotid bruits, or thyromegaly. CHEST EXAMINATION: Trachea is central. Symmetrical expansion. Lung walker clear to auscultation and percussion. CARDIAC: Normal S1, S2 with no gallops. No murmurs ABDOMEN: Soft. Bowel sounds present. tender. No organomegaly. No abdominal bruits. Extremities: reveal no edema. No clubbing or cyanosis Neurologically awake, alert, oriented. Patient does have cognitive impairment. Able to move extremities while in bed.. Diffusely weak Skin: No rash or skin lesions. Psychiatric: Cooperative. Nonsuicidal, Musculoskeletal: No joint swelling or deformity. Normal range of motion. Assessment: Recurrent C. difficile colitis with diarrhea and low-grade fever and recent completion of oral course with fidaxomicin, failed outpatient Abnormal urine sample.Possible urinary tract infection, most likely asymptomatic bacteriuria Paroxysmal atrial fibrillation currently not on any anticoagulation Dementia Hypertension Diabetes type 2 [id number] DVT prophylaxis Plan: Patient to be continued on oral Vanco and will add Questran Encourage oral intake along with probiotic Monitor electrolytes closely and replace per protocol. We'll give a dose of potassium and follow-up labs Encouraged to increase activity as tolerated and encourage oral intake Patient will be returning to [facility] when showing clinical improvement of her diarrhea and oral intake and will discuss with infectious disease about discharge planning antibiotics including length of duration. The impression and plan of care has been dictated by Leann Lama, Nurse Practitioner as directed. MD Jordon I have performed a history and examination and MDM of this patient, discussed the same with the dictator, and agree with the dictator's assessment and plan as written ,documented as a scribe. Based on total visit time, I have performed more than 50% of the visit. Objective - Vital Signs Vital signs: Vital Signs Temp 97.5 F L 11/08/22 07:00 Pulse 75 11/08/22 07:00 Resp 17 11/08/22 07:00 BP 131/65 11/08/22 07:00 Pulse Ox 95 11/08/22 07:00 FiO2 Intake & Output 11/07/22 11/08/22 11/08/22 18:59 06:59 18:59 Intake Total 478 100 Output Total 1 Balance 477 100 Intake: Oral 478 100 Output: Urine/Stool Mix 1 Other: Voiding Method Incontinent Incontinent # Voids 1 4 # Bowel Movements 4 - Labs CBC & Chem 7: 11/08/22 05:43 11/08/22 05:43 Labs: Abnormal Lab Results - Last 24 Hours (Table) 11/07/22 11/07/22 11/07/22 Range/Units 06:23 06:23 12:51 RBC 3.09 L (4.10-5.20) X 10*6/uL Hgb 9.3 L (12.0-15.0) g/dL Hct 31.8 L (37.2-46.3) % MCV 102.9 H (80.0-97.0) fL MCHC 29.2 L (32.0-37.0) g/dL Immature Gran # 0.05 H (0.00-0.04) X 10*3/uL Chloride 111 H (96-109) mmol/L Carbon Dioxide 19.7 L (20.0-27.5) mmol/L Anion Gap (10.00-18.00) mmol/L Est GFR (CKD-EPI)AfAm 36.0 L (60.0-200.0) Est GFR (CKD-EPI)NonAf 31.0 L (60.0-200.0) Glucose 116 H (70-110) mg/dL POC Glucose (mg/dL) 127 H (70-110) mg/dL Calcium 7.6 L (8.7-10.3) mg/dL 11/07/22 11/07/22 11/08/22 Range/Units 17:13 20:36 05:43 RBC 3.04 L (4.10-5.20) X 10*6/uL Hgb 9.1 L (12.0-15.0) g/dL Hct 31.8 L (37.2-46.3) % MCV 104.6 H (80.0-97.0) fL MCHC 28.6 L (32.0-37.0) g/dL Immature Gran # (0.00-0.04) X 10*3/uL Chloride (96-109) mmol/L Carbon Dioxide (20.0-27.5) mmol/L Anion Gap (10.00-18.00) mmol/L Est GFR (CKD-EPI)AfAm (60.0-200.0) Est GFR (CKD-EPI)NonAf (60.0-200.0) Glucose (70-110) mg/dL POC Glucose (mg/dL) 133 H 135 H (70-110) mg/dL Calcium (8.7-10.3) mg/dL 11/08/22 11/08/22 Range/Units 05:43 06:01 RBC (4.10-5.20) X 10*6/uL Hgb (12.0-15.0) g/dL Hct (37.2-46.3) % MCV (80.0-97.0) fL MCHC (32.0-37.0) g/dL Immature Gran # (0.00-0.04) X 10*3/uL Chloride 114 H (96-109) mmol/L Carbon Dioxide (20.0-27.5) mmol/L Anion Gap 4.80 L (10.00-18.00) mmol/L Est GFR (CKD-EPI)AfAm 42.4 L (60.0-200.0) Est GFR (CKD-EPI)NonAf 36.6 L (60.0-200.0) Glucose 127 H (70-110) mg/dL POC Glucose (mg/dL) 130 H (70-110) mg/dL Calcium 7.7 L (8.7-10.3) mg/dL Microbiology - Last 24 Hours (Table) 11/05/22 14:55 Urine Culture - Final Urine,Catheterized Klebsiella pneumoniae Escherichia coli 11/05/22 14:35 Blood Culture - Preliminary Blood No Growth after 48 hours 11/05/22 14:55 Blood Culture - Preliminary Blood No Growth after 48 hours
[2022-11-08 20:35] LABS: Glucose,Whole Blood 151 mg/dL (70-110)
[2022-11-08] MEDS: FAMOTIDINE 20 MG TAB PO SCH (20:57)
[2022-11-08] MEDS: ATORVASTATIN 10 MG TAB PO SCH (20:57)
[2022-11-08] MEDS: MELATONIN 1 MG TAB PO SCH (20:57)
[2022-11-09 05:45] LABS: Glucose,Whole Blood 102 mg/dL (70-110)
[2022-11-09] MEDS: INSULIN ASPART (NovoLOG) 100 UNIT/ML VIAL SQ SCH ×4 (05:47→20:42)
[2022-11-09] MEDS: SODIUM CHLORIDE 0.9% 1,000 ML IV SCH ×2 (05:47→16:21)
[2022-11-09] MEDS: PANTOPRAZOLE 40 MG TABLET PO SCH (05:48)
[2022-11-09] MEDS: VANCOMYCIN 125 MG CAPSULE PO SCH ×4 (08:59→20:42)
[2022-11-09] MEDS: CLOPIDOGREL 75 MG TAB PO SCH (08:59)
[2022-11-09] MEDS: CHOLESTYRAMINE (WITH SUGAR) 4 GM PACKET PO SCH ×2 (08:59→17:42)
[2022-11-09] MEDS: LACTOBACILLUS ACIDOPH & BULGAR 1 EACH PACKET PO SCH (08:59)
[2022-11-09] MEDS: DONEPEZIL 5 MG TAB PO SCH (08:59)
[2022-11-09 09:02] LABS: Basophils # (A) 0.07 X 10*3/uL (0.00-0.10); Basophils % (A) 1.3 %; Eosinophils # (A) 0.18 X 10*3/uL (0.04-0.35); Eosinophils % (A) 3.4 %; HCT 32.1 % (37.2-46.3); HGB 9.3 g/dL (12.0-15.0); Immature Grans, Automated 4.2 %; Lymphocytes # (A) 1.48 X 10*3/uL (0.90-5.00); Lymphocytes % (A) 28.3 %; MCH 29.8 pg (27.0-32.0); MCV 102.9 fL (80.0-97.0); Mean Platelet Volume 10.2 fL (9.5-12.2); Monocytes # (A) 0.53 X 10*3/uL (0.20-1.00); Monocytes % (A) 10.1 %; NRBC Per 100 WBC 0 /100 WBCS (0.0-0.0); Neutrophils # (A) 2.75 X 10*3/uL (1.80-7.70); Neutrophils % (A) 52.7 %; Platelet Count 221 X 10*3/uL (140-440); RBC 3.12 X 10*6/uL (4.10-5.20); RDW 13.5 % (11.5-14.5); WBC 5.23 X 10*3/uL (4.50-10.00)
[2022-11-09 09:22] LABS: African American GFR (CKD) 58.3 (60.0-200.0); Anion Gap 8.7 mmol/L (10.00-18.00); Carbon Dioxide 21.3 mmol/L (20.0-27.5); Non-African American GFR(CKD) 50.3 (60.0-200.0); Potassium 4.1 mmol/L (3.5-5.5)
[2022-11-09 12:03] LABS: Glucose,Whole Blood 111 mg/dL (70-110)
--- NOTE | 2022-11-09 16:15 | P.PN ---
Subjective Progress Note Date: 11/09/22 Patient is a 87-year-old female with a known history of atrial fibrillation paroxysmal, hypertension, diabetes type 2 [id number], dementia and recent history of C. difficile colitis and was discharged to extended care facility completed the course with fidaxomicin was sent back to the hospital due to concern for diarrhea. Patient has been having diarrhea for the last 3 days. Patient was found to have T-max of 101 at the facility. Patient received Tylenol prior to transfer. Denied any complaints of chest pain or shortness of breath. No cough or sputum production. Denies any abdominal pain. No flank pain. Laboratory test showed WBC 16.5 hemoglobin 11.6 and platelets 287 Sodium 137 potassium 4.9 chloride 108 bicarb is 24 BUN 49 creatinine 1.13 and blood sugar 149 A1c 6.7 liver enzymes are not elevated and albumin 3.0 Urinalysis showed turbid with trace blood and positive nitrite and large leukocyte esterase with elevated WBCs and many squamous epithelial cells. C. difficile positive Influenza A, B, RSV and SARS-CoV-2 PCR not detected. 11/07/2022 Patient is currently resting in the bed. Awake alert and oriented x2-3. Denies any complaints of abdominal pain. 1 episode of diarrhea this morning. Currently on vancomycin 250 mg daily. ID is on board. Patient has been afebrile. No complaints of chest pain or shortness of breath. No nausea or vomiting. No cough or sputum production. Patient has been afebrile. Patient will be started on ceftriaxone for urinary tract infection. Follow-up final culture report. Laboratory data showed WBC 7.6 hemoglobin 9.3 and platelets 213 Sodium 142 potassium 3.5 chloride 109 bicarb is 19.7 BUN 20.3 and creatinine 1.4 and calcium 7.6. 11/08/2022 Patient is seen in follow-up today with infectious disease following. Patient continues to have multiple episodes of diarrhea has been started on vancomycin. Patient also continues to report discomfort of her bottom and recommend a shower today. Patient will be started on Questran and also Imodium as needed and will follow-up with labs in the a.m. Discussed with infectious disease and working with Silas about overall treatment as patient was discharged on facility and completed a course and was to reinitiate although continued to have worsening diarrhea. Patient is showing minimal improvement on Vanco and will continue and will add Questran. Encourage oral intake especially probiotic with yogurt each meal. 11/09/2022 Patient is seen and evaluated in follow-up currently sitting up in the chair. Patient is maintained on oral vancomycin along with Questran and Imodium as needed. Patient having difficulty with Questran and tolerating although encouraged. Patient reports some improvement in amounts of bowel movements although nursing staff reports continues to have multiple episodes. Encouraged oral intake and continue with yogurt daily with meals. Patient will be returning to [facility] once stabilized. Will discuss further with infectious disease about discharge planning once patient diarrhea is improving. Patient is afebrile denies chest pain or shortness of breath. Patient denies nausea or vomiting although is skeptical to eat as she fears having increased diarrhea. discussed with the patient and encourage the importance of oral intake. Review of systems: Constitutional: No reports of fatigue, fever, or chills Cardiovascular: No reports of chest pain or palpitations Respiratory: No reports of shortness of breath or cough GI: No reports of nausea, vomiting, reports continued diarrhea, poor appetite : No reports of dysuria or retention Neurovascular: reports of generalized weakness All medications have been reviewed Physical exam: Patient is sitting up in the chair, awake king alert and oriented.. HEENT: Normocephalic. Neck is supple. Pupils reactive. Nostrils clear. Oral cavity is moist. Neck reveals no JVD, carotid bruits, or thyromegaly. CHEST EXAMINATION: Trachea is central. Symmetrical expansion. Lung walker clear to auscultation and percussion. CARDIAC: Normal S1, S2 with no gallops. No murmurs ABDOMEN: Soft. Bowel sounds present. tender. No organomegaly. No abdominal bruits. Extremities: reveal no edema. No clubbing or cyanosis Neurologically awake, alert, oriented. Patient does have cognitive impairment. Able to move extremities while in bed.. Diffusely weak Skin: No rash or skin lesions. Psychiatric: Cooperative. Nonsuicidal, Musculoskeletal: No joint swelling or deformity. Normal range of motion. Assessment: Recurrent C. difficile colitis with diarrhea and low-grade fever and recent completion of oral course with fidaxomicin, failed outpatient Abnormal urine sample.Possible urinary tract infection, most likely asymptomatic bacteriuria Paroxysmal atrial fibrillation currently not on any anticoagulation Dementia Hypertension Diabetes type 2 [id number] DVT prophylaxis No code Plan: Patient to be continued on oral Vanco and have added questran. Patient needs encouragement drinking the Questran Encourage oral intake along with yogurt 3 times a day with meals Encouraged to increase activity as tolerated and encourage oral intake Patient will be returning to ECF when showing clinical improvement of her diarrhea and oral intake and will discuss with infectious disease about discharge planning antibiotics including length of duration. Possible discharge in the next 24-48 hours The impression and plan of care has been dictated by Leann Lama, Nurse Practitioner as directed. MD Jordon I have performed a history and examination and MDM of this patient, discussed the same with the dictator, and agree with the dictator's assessment and plan as written ,documented as a scribe. Based on total visit time, I have performed more than 50% of the visit. Objective - Vital Signs Vital signs: Vital Signs Temp 97.5 F L 11/09/22 07:00 Pulse 62 11/09/22 07:00 Resp 16 11/09/22 07:00 BP 130/76 11/09/22 07:00 Pulse Ox 97 11/09/22 07:00 FiO2 Intake & Output 11/08/22 11/09/22 11/09/22 18:59 06:59 18:59 Other: Voiding Method Incontinent Incontinent # Voids 1 2 # Bowel Movements 1 2 - Labs CBC & Chem 7: 11/09/22 05:53 11/09/22 05:53 Labs: Abnormal Lab Results - Last 24 Hours (Table) 11/08/22 11/08/22 11/08/22 Range/Units 12:19 17:33 20:33 RBC (4.10-5.20) X 10*6/uL Hgb (12.0-15.0) g/dL Hct (37.2-46.3) % MCV (80.0-97.0) fL MCHC (32.0-37.0) g/dL Immature Gran # (0.00-0.04) X 10*3/uL Chloride (96-109) mmol/L Anion Gap (10.00-18.00) mmol/L Est GFR (CKD-EPI)AfAm (60.0-200.0) Est GFR (CKD-EPI)NonAf (60.0-200.0) POC Glucose (mg/dL) 127 H 131 H 151 H (70-110) mg/dL Calcium (8.7-10.3) mg/dL 11/09/22 11/09/22 Range/Units 05:53 05:53 RBC 3.12 L (4.10-5.20) X 10*6/uL Hgb 9.3 L (12.0-15.0) g/dL Hct 32.1 L (37.2-46.3) % MCV 102.9 H (80.0-97.0) fL MCHC 29.0 L (32.0-37.0) g/dL Immature Gran # 0.22 H (0.00-0.04) X 10*3/uL Chloride 115 H (96-109) mmol/L Anion Gap 8.70 L (10.00-18.00) mmol/L Est GFR (CKD-EPI)AfAm 58.3 L (60.0-200.0) Est GFR (CKD-EPI)NonAf 50.3 L (60.0-200.0) POC Glucose (mg/dL) (70-110) mg/dL Calcium 8.0 L (8.7-10.3) mg/dL Microbiology - Last 24 Hours (Table) 11/05/22 14:55 Blood Culture - Preliminary Blood No Growth after 72 hours 11/05/22 14:35 Blood Culture - Preliminary Blood No Growth after 72 hours
[2022-11-09 16:56] LABS: Glucose,Whole Blood 151 mg/dL (70-110)
[2022-11-09 20:37] LABS: Glucose,Whole Blood 151 mg/dL (70-110)
[2022-11-09] MEDS: MELATONIN 1 MG TAB PO SCH (20:42)
[2022-11-09] MEDS: ATORVASTATIN 10 MG TAB PO SCH (20:42)
[2022-11-09] MEDS: FAMOTIDINE 20 MG TAB PO SCH (20:42)
--- NOTE | 2022-11-09 22:10 | P.PN ---
Subjective Progress Note Date: 11/09/22 Principal diagnosis: C. diff colitis Patient is an 87 year old female with a past medical history significant for atrial fibrillation heart failure hypertension diabetes mellitus she was recently admitted to this facility and of September and the patient was diagnosed and treated for C. diff colitis in this patient was treated with oral deficid, patient is now presented back to the hospital for evaluation of diarrhea that has been getting worse for the last 5 days with a repeat stool for C. diff positive. On today's evaluation that is on 11/09/2022, the patient continues to be afebrile, patient is breathing comfortably and denies chest pain shortness of breath or cough, the patient denies any nausea no vomiting no abdominal pain and the patient diarrhea has resolved and did have a soft bowel movement Objective - Vital Signs Vital signs: Vital Signs Temp 97.5 F L 11/09/22 07:00 Pulse 62 11/09/22 07:00 Resp 16 11/09/22 07:00 BP 130/76 11/09/22 07:00 Pulse Ox 97 11/09/22 07:00 FiO2 Intake & Output 11/08/22 11/09/22 11/09/22 18:59 06:59 18:59 Other: Voiding Method Incontinent Incontinent # Voids 1 2 # Bowel Movements 1 2 - Exam GENERAL DESCRIPTION: An elderly female lying in bed in no distress RESPIRATORY SYSTEM: Unlabored breathing , decreased breath sounds at bases HEART: S1 S2 regular rate and rhythm , ABDOMEN: Soft , no tenderness EXTREMITIES: No edema feet - Labs CBC & Chem 7: 11/09/22 05:53 11/09/22 05:53 Labs: Abnormal Lab Results - Last 24 Hours (Table) 11/08/22 11/08/22 11/08/22 Range/Units 12:19 17:33 20:33 RBC (4.10-5.20) X 10*6/uL Hgb (12.0-15.0) g/dL Hct (37.2-46.3) % MCV (80.0-97.0) fL MCHC (32.0-37.0) g/dL Immature Gran # (0.00-0.04) X 10*3/uL Chloride (96-109) mmol/L Anion Gap (10.00-18.00) mmol/L Est GFR (CKD-EPI)AfAm (60.0-200.0) Est GFR (CKD-EPI)NonAf (60.0-200.0) POC Glucose (mg/dL) 127 H 131 H 151 H (70-110) mg/dL Calcium (8.7-10.3) mg/dL 11/09/22 11/09/22 Range/Units 05:53 05:53 RBC 3.12 L (4.10-5.20) X 10*6/uL Hgb 9.3 L (12.0-15.0) g/dL Hct 32.1 L (37.2-46.3) % MCV 102.9 H (80.0-97.0) fL MCHC 29.0 L (32.0-37.0) g/dL Immature Gran # 0.22 H (0.00-0.04) X 10*3/uL Chloride 115 H (96-109) mmol/L Anion Gap 8.70 L (10.00-18.00) mmol/L Est GFR (CKD-EPI)AfAm 58.3 L (60.0-200.0) Est GFR (CKD-EPI)NonAf 50.3 L (60.0-200.0) POC Glucose (mg/dL) (70-110) mg/dL Calcium 8.0 L (8.7-10.3) mg/dL Microbiology - Last 24 Hours (Table) 11/05/22 14:55 Blood Culture - Preliminary Blood No Growth after 72 hours 11/05/22 14:35 Blood Culture - Preliminary Blood No Growth after 72 hours Assessment and Plan (1) C. difficile colitis Current Visit: No Status: Acute Code(s): A04.72 - ENTEROCOLITIS D/T CLOSTRIDIUM DIFFICILE, NOT SPCF RECUR SNOMED Code(s): 371148208 Plan: 1patient with diarrhea in this patient with recurrent C. diff colitis patient recently completed a course of oral deficid according to the notes the patient should have been on oral deficid at this point however she is not a very clear when she completed her course of therapy 2patient did have a positive urine culture but no urinary symptoms likely asymptomatic bacteriuria keeping in mind active C. diff colitis will monitor the patient closely off antibiotic therapy for the positive urine culture 3patient did have clinical improvement as for his C. diff colitis is concerned plan is for a two-week course of oral vancomycin on discharge Family the bedside questions were answered Time with Patient: Less than 30
[2022-11-10] MEDS: SODIUM CHLORIDE 0.9% 1,000 ML IV SCH ×2 (04:56→17:11)
[2022-11-10] MEDS: ACETAMINOPHEN TAB 325 MG TAB PO PRN (05:03)
[2022-11-10 05:54] LABS: Glucose,Whole Blood 116 mg/dL (70-110)
[2022-11-10] MEDS: INSULIN ASPART (NovoLOG) 100 UNIT/ML VIAL SQ SCH ×4 (06:03→20:57)
[2022-11-10] MEDS: PANTOPRAZOLE 40 MG TABLET PO SCH (06:21)
[2022-11-10] MEDS: DONEPEZIL 5 MG TAB PO SCH (07:58)
[2022-11-10] MEDS: VANCOMYCIN 125 MG CAPSULE PO SCH ×4 (07:58→20:58)
[2022-11-10] MEDS: CLOPIDOGREL 75 MG TAB PO SCH (07:58)
[2022-11-10] MEDS: LACTOBACILLUS ACIDOPH & BULGAR 1 EACH PACKET PO SCH (08:00)
[2022-11-10] MEDS: CHOLESTYRAMINE (WITH SUGAR) 4 GM PACKET PO SCH ×2 (08:00→17:24)
--- NOTE | 2022-11-10 11:48 | P.DS ---
Providers Date of admission: 11/08/22 08:46 Expected date of discharge: 11/10/22 Attending physician: Jose Alejandro Malone Consults: 11/05/22 17:09 Consult Physician Routine Consulting Provider: Lois Barajas Consult Reason/Comments: c diff, fever Do you want consulting provider notified?: Yes Primary care physician: Juancarlos Man Hospital Course: Final diagnosis Recurrent C. difficile colitis with diarrhea and low-grade fever and recent completion of oral course with fidaxomicin, failed outpatient Abnormal urine sample.Possible urinary tract infection, most likely asymptomatic bacteriuria Paroxysmal atrial fibrillation currently not on any anticoagulation Dementia Hypertension Diabetes type 2 [id number]-[id number] DVT prophylaxis No code Discharge disposition Patient is being discharged in a stable condition with guarded prognosis to [facility]. Patient will follow-up with Dr. Man in the outpatient setting upon discharge. Patient is to continue with oral Vanco 250 mg 4 times daily for the next 2 weeks per ID recommendations. Total time taken is greater than 35 minutes. Hospital course This is a 87-year-old female who was recently admitted with persistent diarrhea. Patient was on Dificid and completed the course. Patient showed clinical improvement on Vanco and was continued to be positive for C. diff. Infectious disease is following and patient recommend to complete 2 weeks course of vancomycin 250 mg 4 times daily. Patient also showing clinical improvement on Questran and will continue twice a day. Patient to continue with yogurt 3 times a day with meals and encouraged oral intake. Patient will be returning to [facility]. Currently no reports of chest pain, shortness of breath, or palpitations. Patient is afebrile. No reports of nausea or vomiting and patient is tolerating diet. Diarrhea is improving. Patient will be going to [facility] today. Guarded prognosis. Physical exam: Gen: This is a 87-year-old female who is awake, alert and oriented 2, well- developed, well-nourished, obese HEENT: Head is atraumatic, normocephalic. Pupils equal, round. Sclerae is anicteric. NECK: Supple. No JVD. No lymphadenopathy. No thyromegaly. LUNGS: Clear to auscultation. No wheezes or rhonchi. No intercostal retractions. HEART: Regular rate and rhythm. No murmur. ABDOMEN: Soft. Bowel sounds are present. No masses. No tenderness. EXTREMITIES: No pedal edema. No calf tenderness. NEUROLOGICAL: Patient is awake, alert and oriented x3. Cranial nerves 2 through 12 are grossly intact. Diffusely weak Please refer to medication reconciliation sheet for a list of medications. The impression and plan of care has been dictated by Leann Lama, Nurse Practitioner as directed. Dr. Walter MD I have performed a history and examination and MDM of this patient, discussed the same with the dictator, and agree with the dictator's assessment and plan as written ,documented as a scribe. Based on total visit time, I have performed more than 50% of the visit. Patient Condition at Discharge: Fair Plan - Discharge Summary New Discharge Prescriptions: New Loperamide [Imodium] 2 mg PO QID PRN cap PRN Reason: Diarrhea Vancomycin 250 mg PO QID 14 Days #112 cap Lactobacillus Acidoph & Bulgar [Lactinex] 1 each PO DAILY packet Cholestyramine (with Sugar) [Questran Packet] 4 gm PO BID@1000,1800 PRN #14 packet PRN Reason: Diarrhea Continue Clopidogrel [Plavix] 75 mg PO DAILY@0800 Magnesium Hydroxide [Milk of Magnesia Concentrate] 7,200 mg PO DAILY PRN PRN Reason: CONSTIPATION LASTING 2 DAYS bisacodyL [Dulcolax] 10 mg RECTAL DAILY PRN PRN Reason: Constipation Lidocaine Hcl 2% Solution 2 ml INTRAARTIC DIRECTED Memantine [Namenda] 10 mg PO BID@0800,1700 Lovastatin [Mevacor] 20 mg PO HS@2100 Ferrous Sulfate [Iron (65 MG Elemental)] 325 mg PO DAILY@1700 Donepezil [Aricept] 5 mg PO DAILY@0800 Nystatin 100,000 Unit/gm Powd [Mycostatin Powder] 1 applic TOPICAL BID@0800,1700 INSULIN ASPART (NovoLOG) [NovoLOG (formulary)] See Protocol SQ ACHS @07,11,1630,21 Melatonin 1 mg PO HS@2100 Meclizine [Antivert] 25 mg PO TID-W/MEALS PRN PRN Reason: Vertigo hydrALAZINE HCL [Apresoline] 25 mg PO Q6H PRN PRN Reason: HOLD IF SPB <120 Na Phos,M-B/Na Phos,Di-Ba [Fleet Adult] 133 ml RECTAL DAILY PRN PRN Reason: Constipation Acetaminophen [Tylenol Arthritis] 650 mg PO Q4H PRN PRN Reason: Pain Or Fever > 100.5 Pantoprazole Sodium [Protonix] 40 mg PO DAILY@0600 Menthol/Zinc Oxide [Calprotect 0.44%-20.6% Oint] 1 applic TOPICAL TID Kenalog-40 Suspension (40mg/Ml) 40 mg INTRAARTIC DIRECTED Discontinued Fidaxomicin [Dificid] 200 mg PO BID@0800,1700 Discharge Medication List Lovastatin [Mevacor] 20 mg PO HS@209905/01/21 [History] Memantine [Namenda] 10 mg PO BID@0800,1700 05/01/21 [History] Clopidogrel [Plavix] 75 mg PO DAILY@0800 10/05/22 [History] Donepezil [Aricept] 5 mg PO DAILY@0800 10/05/22 [History] Ferrous Sulfate [Iron (65 MG Elemental)] 325 mg PO DAILY@169910/05/22 [History] Acetaminophen [Tylenol Arthritis] 650 mg PO Q4H PRN 10/17/22 [History] INSULIN ASPART (NovoLOG) [NovoLOG (formulary)] See Protocol SQ ACHS@07,11,1630,10/17/22 [History] Magnesium Hydroxide [Milk of Magnesia Concentrate] 7,200 mg PO DAILY PRN 10/17/22 [History] Meclizine [Antivert] 25 mg PO TID-W/MEALS PRN 10/17/22 [History] Melatonin 1 mg PO HS@209910/17/22 [History] Na Phos,M-B/Na Phos,Di-Ba [Fleet Adult] 133 ml RECTAL DAILY PRN 10/17/22 [History] Nystatin 100,000 Unit/gm Powd [Mycostatin Powder] 1 applic TOPICAL BID@0800,1700 10/17/22 [History] bisacodyL [Dulcolax] 10 mg RECTAL DAILY PRN 10/17/22 [History] hydrALAZINE HCL [Apresoline] 25 mg PO Q6H PRN 10/17/22 [History] Menthol/Zinc Oxide [Calprotect 0.44%-20.6% Oint] 1 applic TOPICAL TID 11/03/22 [History] Pantoprazole Sodium [Protonix] 40 mg PO DAILY@0600 11/03/22 [History] Kenalog-40 Suspension (40mg/Ml) 40 mg INTRAARTIC DIRECTED 11/05/22 [History] Lidocaine Hcl 2% Solution 2 ml INTRAARTIC DIRECTED 11/05/22 [History] Cholestyramine (with Sugar) [Questran Packet] 4 gm PO BID@1000,1800 PRN #14 packet 11/10/22 [Rx] Lactobacillus Acidoph & Bulgar [Lactinex] 1 each PO DAILY packet 11/10/22 [Rx] Loperamide [Imodium] 2 mg PO QID PRN cap 11/10/22 [Rx] Vancomycin 250 mg PO QID 14 Days #112 cap 11/10/22 [Rx] Follow up Appointment(s)/Referral(s): Juancarlos Man MD [Primary Care Provider] - 1-2 days Activity/Diet/Wound Care/Special Instructions: Patient is going to [facility] Activity as tolerated Patient is to continue with yogurt 3 times a day with meals and continue consistent carb diet Recommend continue monitoring Accu-Cheks before meals and at bedtime NovoLog sliding scale 0-150 equals 0 units 151-200 equals 2 units 201-250 equals 4 units 251-300 equals 6 units 301-350 equals 8 units 351-400 equals 10 units Please notify provider if blood sugar is 400 or above Patient continue on oral Vanco 4 times daily for the next 2 weeks to complete the course per ID recommendations Continue with Questran and hold if having formed stools May use Imodium as needed for loose stools Discharge Disposition: TRANSFER TO SNF/ECF
[2022-11-10 11:49] LABS: Glucose,Whole Blood 115 mg/dL (70-110)
--- NOTE | 2022-11-10 12:36 | P.PN ---
Subjective Progress Note Date: 11/10/22 Principal diagnosis: C. diff colitis Patient is an 87 year old female with a past medical history significant for atrial fibrillation heart failure hypertension diabetes mellitus she was recently admitted to this facility and of September and the patient was diagnosed and treated for C. diff colitis in this patient was treated with oral deficid, patient is now presented back to the hospital for evaluation of diarrhea that has been getting worse for the last 5 days with a repeat stool for C. diff positive. On today's evaluation that is on 11/10/2022, the patient remains to be afebrile, patient is breathing comfortably on room air, the patient denies chest pain [place] rtness of breath or cough, the patient denies any nausea no vomiting no abdominal pain and the patient diarrhea has resolved and did have a soft bowel movement this morning per patient Objective - Vital Signs Vital signs: Vital Signs Temp 97.9 F 11/10/22 07:00 Pulse 68 11/10/22 08:00 Resp 16 11/10/22 08:00 BP 143/77 11/10/22 07:00 Pulse Ox 94 L 11/10/22 07:06 FiO2 Intake & Output 11/09/22 11/10/22 11/10/22 18:59 06:59 18:59 Other: Voiding Method Incontinent Incontinent Bedside Commode Diaper Incontinent # Voids 3 1 # Bowel Movements 1 0 - Exam GENERAL DESCRIPTION: An elderly female lying in bed in no distress RESPIRATORY SYSTEM: Unlabored breathing , decreased breath sounds at bases HEART: S1 S2 regular rate and rhythm , ABDOMEN: Soft , no tenderness EXTREMITIES: No edema feet - Labs CBC & Chem 7: 11/09/22 05:53 11/09/22 05:53 Labs: Abnormal Lab Results - Last 24 Hours (Table) 11/09/22 11/09/22 11/09/22 Range/Units 12:01 16:54 20:36 POC Glucose (mg/dL) 111 H 151 H 151 H (70-110) mg/dL 11/10/22 Range/Units 05:53 POC Glucose (mg/dL) 116 H (70-110) mg/dL Microbiology - Last 24 Hours (Table) 11/05/22 14:55 Blood Culture - Preliminary Blood No Growth after 96 hours 11/05/22 14:35 Blood Culture - Preliminary Blood No Growth after 96 hours Assessment and Plan (1) C. difficile colitis Current Visit: No Status: Acute Code(s): A04.72 - ENTEROCOLITIS D/T CLOSTR IDIUM DIFFICILE, NOT SPCF RECUR SNOMED Code(s): 934842585 Plan: 1patient with diarrhea in this patient with recurrent C. diff colitis patient recently completed a course of oral deficid according to the notes the patient should have been on oral deficid at this point however she is not a very clear when she completed her course of therapy 2patient did have a positive urine culture but no urinary symptoms likely asymptomatic bacteriuria keeping in mind active C. diff colitis will monitor the patient closely off antibiotic therapy for the positive urine culture 3patient did have clinical improvement as for his C. diff colitis is concerned, patient to continue with oral vancomycin 250 mg by mouth every 6 hours to finish a two-week course of therapy also encouraged to increase her probiotic and yogurt intake Time with Patient: Less than 30
[2022-11-10 17:09] LABS: Glucose,Whole Blood 120 mg/dL (70-110)
[2022-11-10 20:47] LABS: Glucose,Whole Blood 162 mg/dL (70-110)
[2022-11-10] MEDS: MELATONIN 1 MG TAB PO SCH (20:58)
[2022-11-10] MEDS: FAMOTIDINE 20 MG TAB PO SCH (20:58)
[2022-11-10] MEDS: ATORVASTATIN 10 MG TAB PO SCH (20:58)
[2022-11-10] MEDS: QUEtiapine 25 MG TAB PO SCH (20:58)
[2022-11-11 06:29] LABS: Glucose,Whole Blood 131 mg/dL (70-110)
[2022-11-11] MEDS: INSULIN ASPART (NovoLOG) 100 UNIT/ML VIAL SQ SCH ×4 (06:32→20:59)
[2022-11-11] MEDS: PANTOPRAZOLE 40 MG TABLET PO SCH (06:34)
[2022-11-11] MEDS: CLOPIDOGREL 75 MG TAB PO SCH (09:29)
[2022-11-11] MEDS: DONEPEZIL 5 MG TAB PO SCH (09:29)
[2022-11-11] MEDS: LACTOBACILLUS ACIDOPH & BULGAR 1 EACH PACKET PO SCH (09:29)
[2022-11-11] MEDS: VANCOMYCIN 125 MG CAPSULE PO SCH ×4 (09:29→20:59)
[2022-11-11] MEDS: CHOLESTYRAMINE (WITH SUGAR) 4 GM PACKET PO SCH ×3 (09:29→18:28)
[2022-11-11 12:49] LABS: Glucose,Whole Blood 107 mg/dL (70-110)
[2022-11-11 17:13] LABS: Glucose,Whole Blood 139 mg/dL (70-110)
--- NOTE | 2022-11-11 19:10 | P.PN ---
Subjective Progress Note Date: 11/11/22 Patient is a 87-year-old female with a known history of atrial fibrillation paroxysmal, hypertension, diabetes type 2 [id number], dementia and recent history of C. difficile colitis and was discharged to extended care facility completed the course with fidaxomicin was sent back to the hospital due to concern for diarrhea. Patient has been having diarrhea for the last 3 days. Patient was found to have T-max of 101 at the facility. Patient received Tylenol prior to transfer. Denied any complaints of chest pain or shortness of breath. No cough or sputum production. Denies any abdominal pain. No flank pain. Laboratory test showed WBC 16.5 hemoglobin 11.6 and platelets 287 Sodium 137 potassium 4.9 chloride 108 bicarb is 24 BUN 49 creatinine 1.13 and blood sugar 149 A1c 6.7 liver enzymes are not elevated and albumin 3.0 Urinalysis showed turbid with trace blood and positive nitrite and large leukocyte esterase with elevated WBCs and many squamous epithelial cells. C. difficile positive Influenza A, B, RSV and SARS-CoV-2 PCR not detected. 11/07/2022 Patient is currently resting in the bed. Awake alert and oriented x2-3. Denies any complaints of abdominal pain. 1 episode of diarrhea this morning. Currently on vancomycin 250 mg daily. ID is on board. Patient has been afebrile. No complaints of chest pain or shortness of breath. No nausea or vomiting. No cough or sputum production. Patient has been afebrile. Patient will be started on ceftriaxone for urinary tract infection. Follow-up final culture report. Laboratory data showed WBC 7.6 hemoglobin 9.3 and platelets 213 Sodium 142 potassium 3.5 chloride 109 bicarb is 19.7 BUN 20.3 and creatinine 1.4 and calcium 7.6. 11/08/2022 Patient is seen in follow-up today with infectious disease following. Patient continues to have multiple episodes of diarrhea has been started on vancomycin. Patient also continues to report discomfort of her bottom and recommend a shower today. Patient will be started on Questran and also Imodium as needed and will follow-up with labs in the a.m. Discussed with infectious disease and working with [facility] about overall treatment as patient was discharged on facility and completed a course and was to reinitiate although continued to have worsening diarrhea. Patient is showing minimal improvement on Vanco and will continue and will add Questran. Encourage oral intake especially probiotic with yogurt each meal. 11/09/2022 Patient is seen and evaluated in follow-up currently sitting up in the chair. Patient is maintained on oral vancomycin along with Questran and Imodium as needed. Patient having difficulty with Questran and tolerating although encouraged. Patient reports some improvement in amounts of bowel movements although nursing staff reports continues to have multiple episodes. Encouraged oral intake and continue with yogurt daily with meals. Patient will be returning to [facility] once stabilized. Will discuss further with infectious disease about discharge planning once patient diarrhea is improving. Patient is afebrile denies chest pain or shortness of breath. Patient denies nausea or vomiting although is skeptical to eat as she fears having increased diarrhea. discussed with the patient and encourage the importance of oral intake. 11/11/2022 Patient is seen in follow-up today currently sitting up in the chair no acute overnight issues. Patient was held as per her insurance is requesting medical scribe. review for authorization. Patient was to return to [facility] once stabilized and discharged. Diarrhea is improved and patient is maintained on Vanco and will continue 2 week course. Encouraged oral intake and increased activity as tolerated. Per nursing staff patient was becoming more agitated at night and will add Seroquel. Patient is currently afebrile denies chest pain or shortness of breath. Patient is eating although continues to need encouragement as oral intake is fair. Review of systems: Constitutional: No reports of fatigue, fever, or chills Cardiovascular: No reports of chest pain or palpitations Respiratory: No reports of shortness of breath or cough GI: No reports of nausea, vomiting, reports continued diarrhea, poor appetite : No reports of dysuria or retention Neurovascular: reports of generalized weakness All medications have been reviewed Physical exam: Patient is sitting up in the chair, awake king alert and oriented.. HEENT: Normocephalic. Neck is supple. Pupils reactive. Nostrils clear. Oral cavity is moist. Neck reveals no JVD, carotid bruits, or thyromegaly. CHEST EXAMINATION: Trachea is central. Symmetrical expansion. Lung walker clear to auscultation and percussion. CARDIAC: Normal S1, S2 with no gallops. No murmurs ABDOMEN: Soft. Bowel sounds present. tender. No organomegaly. No abdominal bruits. Extremities: reveal no edema. No clubbing or cyanosis Neurologically awake, alert, oriented. Patient does have cognitive impairment. Able to move extremities while in bed.. Diffusely weak Skin: No rash or skin lesions. Psychiatric: Cooperative. Nonsuicidal, Musculoskeletal: No joint swelling or deformity. Normal range of motion. Assessment: Recurrent C. difficile colitis with diarrhea and low-grade fever and recent completion of oral course with fidaxomicin, failed outpatient Abnormal urine sample.Possible urinary tract infection, most likely asymptomatic bacteriuria Paroxysmal atrial fibrillation currently not on any anticoagulation Dementia Hypertension Diabetes type 2 [id number]-hkpxuueaf DVT prophylaxis No code Plan: Patient to be continued on oral Vanco and have added questran. Patient needs encouragement drinking the Questran and has been refusing. Reports improvement in bowels and having formed stools. On Questran as needed Encourage oral intake along with yogurt 3 times a day with meals Encouraged to increase activity as tolerated and encourage oral intake Patient will be returning to [facility] on a two-week course of Vanco. Case management is following as insurance is requiring authorization and is reported as needing medical scribe. review. [facility] has accepted pending authorization. Possible discharge in the next 24-48 hours The impression and plan of care has been dictated by Leann Lama, Nurse Practitioner as directed. MD Jordon I have performed a history and examination and MDM of this patient, discussed the same with the dictator, and agree with the dictator's assessment and plan as written ,documented as a scribe. Based on total visit time, I have performed more than 50% of the visit. Objective - Vital Signs Vital signs: Vital Signs Temp 97.6 F 11/11/22 13:31 Pulse 85 11/11/22 13:31 Resp 18 11/11/22 13:31 BP 152/69 11/11/22 13:31 Pulse Ox 96 11/11/22 13:31 FiO2 Intake & Output 11/10/22 11/11/22 11/11/22 18:59 06:59 18:59 Output Total 1 Balance -1 Output: Urine 1 Other: Voiding Method Bedside Commode Bedside Commode Diaper Diaper Incontinent Incontinent # Voids 1 2 1 # Bowel Movements 1 1 - Labs CBC & Chem 7: 11/09/22 05:53 11/09/22 05:53 Labs: Abnormal Lab Results - Last 24 Hours (Table) 11/10/22 11/10/22 11/11/22 Range/Units 17:08 20:46 06:27 POC Glucose (mg/dL) 120 H 162 H 131 H (70-110) mg/dL Microbiology - Last 24 Hours (Table) 11/05/22 14:35 Blood Culture - Preliminary Blood No Growth after 120 hours 11/05/22 14:55 Blood Culture - Preliminary Blood No Growth after 120 hours
[2022-11-11] MEDS: MELATONIN 1 MG TAB PO SCH (20:17)
[2022-11-11] MEDS: ATORVASTATIN 10 MG TAB PO SCH (20:17)
[2022-11-11] MEDS: FAMOTIDINE 20 MG TAB PO SCH (20:17)
[2022-11-11] MEDS: QUEtiapine 25 MG TAB PO SCH (20:17)
[2022-11-11 20:38] LABS: Glucose,Whole Blood 177 mg/dL (70-110)
--- NOTE | 2022-11-11 21:10 | P.PN ---
Subjective Progress Note Date: 11/11/22 Principal diagnosis: C. diff colitis Patient is an 87 year old female with a past medical history significant for atrial fibrillation heart failure hypertension diabetes mellitus she was recently admitted to this facility and of September and the patient was diagnosed and treated for C. diff colitis in this patient was treated with oral deficid, patient is now presented back to the hospital for evaluation of diarrhea that has been getting worse for the last 5 days with a repeat stool for C. diff positive. On today's evaluation that is on 11/11/2022, the patient continues to be afebrile, patient is breathing comfortably on room air, the patient denies chest pain shortness of breath or cough, the patient denies any nausea no vomiting no abdominal pain and the patient diarrhea has resolved, patient did have soft bowel movement this morning and 1 yesterday Objective - Vital Signs Vital signs: Vital Signs Temp 97.7 F 11/11/22 07:00 Pulse 79 11/11/22 07:00 Resp 18 11/11/22 07:00 BP 121/77 11/11/22 07:00 Pulse Ox 97 11/11/22 07:00 FiO2 Intake & Output 11/10/22 11/11/22 11/11/22 18:59 06:59 18:59 Output Total 1 Balance -1 Output: Urine 1 Other: Voiding Method Bedside Commode Bedside Commode Diaper Diaper Incontinent Incontinent # Voids 1 2 # Bowel Movements 1 - Exam GENERAL DESCRIPTION: An elderly female lying in bed in no distress RESPIRATORY SYSTEM: Unlabored breathing , decreased breath sounds at bases HEART: S1 S2 regular rate and rhythm , ABDOMEN: Soft , no tenderness EXTREMITIES: No edema feet - Labs CBC & Chem 7: 11/09/22 05:53 11/09/22 05:53 Labs: Abnormal Lab Results - Last 24 Hours (Table) 11/10/22 11/10/22 11/10/22 Range/Units 11:47 17:08 20:46 POC Glucose (mg/dL) 115 H 120 H 162 H (70-110) mg/dL 11/11/22 Range/Units 06:27 POC Glucose (mg/dL) 131 H (70-110) mg/dL Microbiology - Last 24 Hours (Table) 11/05/22 14:35 Blood Culture - Preliminary Blood No Growth after 120 hours 11/05/22 14:55 Blood Culture - Preliminary Blood No Growth after 120 hours Assessment and Plan (1) C. difficile colitis Current Visit: No Status: Acute Code(s): A04.72 - ENTEROCOLITIS D/T CLOSTRIDIUM DIFFICILE, NOT SPCF RECUR SNOMED Code(s): 443672223 Plan: 1patient with diarrhea in this patient with recurrent C. diff colitis patient recently completed a course of oral deficid according to the notes the patient should have been on oral deficid at this point however she is not a very clear when she completed her course of therapy 2patient did have a positive urine culture but no urinary symptoms likely asymptomatic bacteriuria keeping in mind active C. diff colitis will monitor the patient closely off antibiotic therapy for the positive urine culture 3patient did have clinical improvement as for his C. diff colitis is concerned, patient to continue with oral vancomycin 250 mg by mouth every 6 hours to finish a two-week course of therapy, Questran to use as needed and discontinue if no bowel movement for 24 hour Time with Patient: Less than 30
[2022-11-12] MEDS: PANTOPRAZOLE 40 MG TABLET PO SCH (06:13)
[2022-11-12 06:14] LABS: Glucose,Whole Blood 126 mg/dL (70-110)
[2022-11-12] MEDS: INSULIN ASPART (NovoLOG) 100 UNIT/ML VIAL SQ SCH ×2 (06:14→12:30)
[2022-11-12 08:58] VITALS: BP 150/69; PULSE 81; RESP 16; TEMP 97.9
[2022-11-12] MEDS: CHOLESTYRAMINE (WITH SUGAR) 4 GM PACKET PO SCH (09:40)
--- NOTE | 2022-11-12 09:44 | P.DS ---
Providers Date of admission: 11/08/22 08:46 Expected date of discharge: 11/12/22 Attending physician: Jose Alejandro Malone Consults: 11/05/22 17:09 Consult Physician Routine Consulting Provider: Lois Barajas Consult Reason/Comments: c diff, fever Do you want consulting provider notified?: Yes Primary care physician: Juancarlos Man Hospital Course: Final diagnosis Recurrent C. difficile colitis with diarrhea and low-grade fever and recent completion of oral course with fidaxomicin, failed outpatient Abnormal urine sample.Possible urinary tract infection, most likely asymptomatic bacteriuria Paroxysmal atrial fibrillation currently not on any anticoagulation Dementia Hypertension Diabetes type 2 [id number] DVT prophylaxis No code Discharge disposition Patient is being discharged in a stable condition with guarded prognosis to [facility]. Patient will follow-up with Dr. Man in the outpatient setting upon discharge. Patient is to continue with oral Vanco 250 mg 4 times daily for the next 12 days per ID recommendations. Total time taken is greater than 35 minutes. Hospital course This is a 87-year-old female who was recently admitted with persistent diarrhea. Patient was on Dificid and completed the course. Patient showed clinical improvement on Vanco and was continued to be positive for C. diff. Infectious disease is following and patient recommend to complete 2 weeks course of vancomycin 250 mg 4 times daily. Patient also showing clinical improvement on Questran and will continue twice a day. Patient to continue with yogurt 3 times a day with meals and encouraged oral intake. Patient will be returning to [facility]. Currently no reports of chest pain, shortness of breath, or palpitations. Patient is afebrile. No reports of nausea or vomiting and patient is tolerating diet. Diarrhea is improving. Patient will be going to [facility] today. Guarded prognosis. 11/12/2022 Patient is seen in follow-up this morning no acute overnight issues noted. Patient has been started on Seroquel at night as patient had been becoming increasingly anxious and agitated. Patient is medically stable for discharge and has now received insurance authorization and will be returning to [facility] today. Patient is to continue with 12 days more of vancomycin 4 times a day to complete the course. Physical exam: Gen: This is a 87-year-old female who is awake, alert and oriented 2, well- developed, well-nourished, obese HEENT: Head is atraumatic, normocephalic. Pupils equal, round. Sclerae is anicteric. NECK: Supple. No JVD. No lymphadenopathy. No thyromegaly. LUNGS: Clear to auscultation. No wheezes or rhonchi. No intercostal retractions. HEART: Regular rate and rhythm. No murmur. ABDOMEN: Soft. Bowel sounds are present. No masses. No tenderness. EXTREMITIES: No pedal edema. No calf tenderness. NEUROLOGICAL: Patient is awake, alert and oriented x3. Cranial nerves 2 through 12 are grossly intact. Diffusely weak Please refer to medication reconciliation sheet for a list of medications. The impression and plan of care has been dictated by Leann Lama, Nurse Practitioner as directed. Dr. Walter MD I have performed a history and examination and MDM of this patient, discussed the same with the dictator, and agree with the dictator's assessment and plan as written ,documented as a scribe. Based on total visit time, I have performed more than 50% of the visit. Patient Condition at Discharge: Fair Plan - Discharge Summary New Discharge Prescriptions: New Loperamide [Imodium] 2 mg PO QID PRN cap PRN Reason: Diarrhea Vancomycin 250 mg PO QID 14 Days #112 cap QUEtiapine [SEROquel] 25 mg PO HS tab Lactobacillus Acidoph & Bulgar [Lactinex] 1 each PO DAILY packet Cholestyramine (with Sugar) [Questran Packet] 4 gm PO BID@1000,1800 PRN #14 packet PRN Reason: Diarrhea Continue Clopidogrel [Plavix] 75 mg PO DAILY@0800 Magnesium Hydroxide [Milk of Magnesia Concentrate] 7,200 mg PO DAILY PRN PRN Reason: CONSTIPATION LASTING 2 DAYS bisacodyL [Dulcolax] 10 mg RECTAL DAILY PRN PRN Reason: Constipation Lidocaine Hcl 2% Solution 2 ml INTRAARTIC DIRECTED Memantine [Namenda] 10 mg PO BID@0800,1700 Lovastatin [Mevacor] 20 mg PO HS@2100 Ferrous Sulfate [Iron (65 MG Elemental)] 325 mg PO DAILY@1700 Donepezil [Aricept] 5 mg PO DAILY@0800 Nystatin 100,000 Unit/gm Powd [Mycostatin Powder] 1 applic TOPICAL BID@0800,1700 INSULIN ASPART (NovoLOG) [NovoLOG (formulary)] See Protocol SQ ACHS@07,,1629, Melatonin 1 mg PO HS@2100 Meclizine [Antivert] 25 mg PO TID-W/MEALS PRN PRN Reason: Vertigo hydrALAZINE HCL [Apresoline] 25 mg PO Q6H PRN PRN Reason: HOLD IF SPB <120 Na Phos,M-B/Na Phos,Di-Ba [Fleet Adult] 133 ml RECTAL DAILY PRN PRN Reason: Constipation Acetaminophen [Tylenol Arthritis] 650 mg PO Q4H PRN PRN Reason: Pain Or Fever > 100.5 Pantoprazole Sodium [Protonix] 40 mg PO DAILY@0600 Menthol/Zinc Oxide [Calprotect 0.44%-20.6% Oint] 1 applic TOPICAL TID Kenalog-40 Suspension (40mg/Ml) 40 mg INTRAARTIC DIRECTED Discontinued Fidaxomicin [Dificid] 200 mg PO BID@0800,1700 Discharge Medication List Lovastatin [Mevacor] 20 mg PO HS@209905/01/21 [History] Memantine [Namenda] 10 mg PO BID@0800,1700 05/01/21 [History] Clopidogrel [Plavix] 75 mg PO DAILY@0800 10/05/22 [History] Donepezil [Aricept] 5 mg PO DAILY@0800 10/05/22 [History] Ferrous Sulfate [Iron (65 MG Elemental)] 325 mg PO DAILY@1700 10/05/22 [History] Acetaminophen [Tylenol Arthritis] 650 mg PO Q4H PRN 10/17/22 [History] INSULIN ASPART (NovoLOG) [NovoLOG (formulary)] See Protocol SQ ACHS@,,1629,10/17/22 [History] Magnesium Hydroxide [Milk of Magnesia Concentrate] 7,200 mg PO DAILY PRN 10/17/22 [History] Meclizine [Antivert] 25 mg PO TID-W/MEALS PRN 10/17/22 [History] Melatonin 1 mg PO HS@2100 10/17/22 [History] Na Phos,M-B/Na Phos,Di-Ba [Fleet Adult] 133 ml RECTAL DAILY PRN 10/17/22 [History] Nystatin 100,000 Unit/gm Powd [Mycostatin Powder] 1 applic TOPICAL BID@0800,1700 10/17/22 [History] bisacodyL [Dulcolax] 10 mg RECTAL DAILY PRN 10/17/22 [History] hydrALAZINE HCL [Apresoline] 25 mg PO Q6H PRN 10/17/22 [History] Menthol/Zinc Oxide [Calprotect 0.44%-20.6% Oint] 1 applic TOPICAL TID 11/03/22 [History] Pantoprazole Sodium [Protonix] 40 mg PO DAILY@0600 11/03/22 [History] Kenalog-40 Suspension (40mg/Ml) 40 mg INTRAARTIC DIRECTED 11/05/22 [History] Lidocaine Hcl 2% Solution 2 ml INTRAARTIC DIRECTED 11/05/22 [History] Cholestyramine (with Sugar) [Questran Packet] 4 gm PO BID@1000,1800 PRN #14 packet 11/10/22 [Rx] Lactobacillus Acidoph & Bulgar [Lactinex] 1 each PO DAILY packet 11/10/22 [Rx] Loperamide [Imodium] 2 mg PO QID PRN cap 11/10/22 [Rx] Vancomycin 250 mg PO QID 14 Days #112 cap 11/10/22 [Rx] QUEtiapine [SEROquel] 25 mg PO HS tab 11/12/22 [Rx] Follow up Appointment(s)/Referral(s): Juancarlos Man MD [Primary Care Provider] - 1-2 days Activity/Diet/Wound Care/Special Instructions: Patient is going to [facility] Activity as tolerated Patient is to continue with yogurt 3 times a day with meals and continue consistent carb diet Recommend continue monitoring Accu-Cheks before meals and at bedtime NovoLog sliding scale 0-150 equals 0 units 151-200 equals 2 units 201-250 equals 4 units 251-300 equals 6 units 301-350 equals 8 units 351-400 equals 10 units Please notify provider if blood sugar is 400 or above Patient continue on oral Vanco 4 times daily for the next 2 weeks to complete the course per ID recommendations Continue with Questran and hold if having formed stools May use Imodium as needed for loose stools Discharge Disposition: TRANSFER TO [facility]
[2022-11-12] MEDS: LACTOBACILLUS ACIDOPH & BULGAR 1 EACH PACKET PO SCH (09:45)
[2022-11-12] MEDS: CLOPIDOGREL 75 MG TAB PO SCH (09:46)
[2022-11-12] MEDS: VANCOMYCIN 125 MG CAPSULE PO SCH ×2 (09:46→12:43)
[2022-11-12] MEDS: DONEPEZIL 5 MG TAB PO SCH (09:46)
[2022-11-12 12:10] LABS: Glucose,Whole Blood 145 mg/dL (70-110)
[2022-11-12] MEDS ORDERED: QUEtiapine 25 MG TAB PO STA (14:04)
--- NOTE | 2022-11-12 14:59 | P.PN ---
Subjective Progress Note Date: 11/12/22 Principal diagnosis: C. diff colitis Patient is an 87 year old female with a past medical history significant for atrial fibrillation heart failure hypertension diabetes mellitus she was recently admitted to this facility and of September and the patient was diagnosed and treated for C. diff colitis in this patient was treated with oral deficid, patient is now presented back to the hospital for evaluation of diarrhea that has been getting worse for the last 5 days with a repeat stool for C. diff positive. On today's evaluation that is on 11/12/2022, the patient denies any fever or chills, patient is breathing comfortably on room air, the patient denies chest pain shortness of breath or cough, the patient denies any nausea no vomiting no abdominal pain and the patient diarrhea has resolved, patient overall feeling better waiting for jail transfer Objective - Vital Signs Vital signs: Vital Signs Temp 97.9 F 11/12/22 07:40 Pulse 81 11/12/22 07:40 Resp 16 11/12/22 07:40 BP 150/69 11/12/22 07:40 Pulse Ox 97 11/12/22 07:40 FiO2 Intake & Output 11/11/22 11/12/22 11/12/22 18:59 06:59 18:59 Intake Total 118 Balance 118 Intake: Oral 118 Other: Voiding Method Bedside Commode Bedside Commode Diaper Diaper Incontinent Incontinent # Voids 1 2 1 # Bowel Movements 1 1 - Exam GENERAL DESCRIPTION: An elderly female lying in bed in no distress RESPIRATORY SYSTEM: Unlabored breathing , decreased breath sounds at bases HEART: S1 S2 regular rate and rhythm , ABDOMEN: Soft , no tenderness EXTREMITIES: No edema feet - Labs CBC & Chem 7: 11/09/22 05:53 11/09/22 05:53 Labs: Abnormal Lab Results - Last 24 Hours (Table) 11/11/22 11/11/22 11/12/22 Range/Units 17:11 20:36 06:13 POC Glucose (mg/dL) 139 H 177 H 126 H (70-110) mg/dL Microbiology - Last 24 Hours (Table) 11/05/22 14:55 Blood Culture - Final Blood No Growth after 144 hours 11/05/22 14:35 Blood Culture - Final Blood No Growth after 144 hours Assessment and Plan (1) C. difficile colitis Status: Acute Code(s): A04.72 - ENTEROCOLITIS D/T CLOSTRIDIUM DIFFICILE, NOT SPCF RECUR SNOMED Code(s): 814451959 Plan: 1patient with diarrhea in this patient with recurrent C. diff colitis patient recently completed a course of oral deficid according to the notes the patient should have been on oral deficid at this point however she is not a very clear when she completed her course of therapy 2patient did have a positive urine culture but no urinary symptoms likely asymptomatic bacteriuria keeping in mind active C. diff colitis will monitor the patient closely off antibiotic therapy for the positive urine culture 3patient did have clinical improvement as for his C. diff colitis is concerned, patient to continue with oral vancomycin 250 mg by mouth every 6 hours to finish a two-week course of therapy, patient has been encouraged to increase her probiotic and yogurt intake and close outpatient follow-up, also advised against unnecessary urine testing if no symptoms Time with Patient: Less than 30
== END 2022-11-12 14:40 | DRG 373 ==
LOC: EC 14:17 → 6NMEDSUR 17:09 → OBSVTOIN 11-08 08:46
PROVIDERS: ADMIT Internal Medicine; ATTEND Internal Medicine
DX: A04.71 Enterocolitis due to Clostridium difficile, recurrent (principal); I11.0 Hypertensive heart disease with heart failure; I50.9 Heart failure, unspecified; I48.0 Paroxysmal atrial fibrillation; F03.90 Unspecified dementia, unspecified severity, without behavioral disturbance, psychotic disturbance, mood disturbance, and anxiety; Z20.822 Contact with and (suspected) exposure to COVID-19; R82.71 Bacteriuria; Z79.01 Long term (current) use of anticoagulants; Z79.02 Long term (current) use of antithrombotics/antiplatelets; Z79.899 Other long term (current) drug therapy; Z90.710 Acquired absence of both cervix and uterus; Z86.19 Personal history of other infectious and parasitic diseases; Z88.2 Allergy status to sulfonamides; Z79.84 Long term (current) use of oral hypoglycemic drugs
CPT/HCPCS: 36415; 71046; 80048; 80053; 81001; 83036; 83605; 85025; 87040; 87077; 87086; 87186; 87324; 87635; 87636; 94760

== ENCOUNTER 2023-05-26 20:40 | Inpatient (IN) | payer MEDICARE ==
[2023-05-26 20:59] LABS: Glucose,Whole Blood 57 mg/dL (70-110)
[2023-05-26] MEDS ORDERED: SODIUM CHLORIDE 0.9% 500 ML 500 ML IV STA (21:15)
[2023-05-26 21:59] LABS: Glucose,Whole Blood 93 mg/dL (70-110)
--- NOTE | 2023-05-26 22:03 | XR ---
EXAMINATION: XR chest 1V portable DATE AND TIME: 05/26/2023 9:27 PM CLINICAL INDICATION: PHH; weak. Emergency department patient TECHNIQUE: AP upright portable COMPARISON: 11/05/2022 FINDINGS: The lungs are clear. The pleural spaces are negative. EKG leads. The cardiac silhouette is not enlarged. The remainder of the mediastinal silhouette is unremarkable. The skeletal structures and soft tissues are negative for acute findings. IMPRESSION: No acute radiographic process.
--- NOTE | 2023-05-26 22:09 | ED ---
Weakness HPI - General Chief complaint: Weakness Stated complaint: Weakness Time Seen by Provider: 05/26/23 21:16 Source: patient, EMS, RN notes reviewed, old records reviewed Mode of arrival: EMS Limitations: no limitations - History of Present Illness Initial comments: This is a 87-year-old female to the ER stay. Patient has no complaints of not feeling well patient states she does not feel like herself. Patient has no specific complaints denying cough congestion fever shortness of breath chest pain abdominal pain nausea vomiting diarrhea. Patient states she was at home and called EMS for something felt off. She has not felt like this in the past and is unsure currently why she is feeling sweaty today. MD Complaint: generalized weakness, lack of energy -: hour(s) Location: generalized Severity: moderate Severity scale (1-10): 4 Consistency: intermittent Improves with: none Worsens with: none Context: history of similar Associated Symptoms: denies other symptoms - Related Data Home Medications Medication Instructions Recorded Confirmed Lovastatin [Mevacor] 20 mg PO HS 05/01/21 05/26/23 Memantine [Namenda] 10 mg PO DAILY 05/01/21 05/26/23 Donepezil [Aricept] 5 mg PO DAILY@1200 10/05/22 05/26/23 Ferrous Sulfate [Iron (65 MG 325 mg PO DAILY@1700 10/05/22 05/26/23 Elemental)] Meclizine [Antivert] 25 mg PO DAILY@1700 10/17/22 05/26/23 Ergocalciferol (Vitamin D2) 1,250 mcg PO Q7D 05/26/23 05/26/23 [Drisdol (50,000 Iu)] Previous Rx's Medication Instructions Recorded Amiodarone [Cordarone] 100 mg PO DAILY #30 tab 05/28/23 Apixaban [Eliquis] 2.5 mg PO BID #60 tab 05/29/23 Allergies Allergy/AdvReac Type Severity Reaction Status Date / Time Sulfa (Sulfonamide Allergy Rash/Hives Verified 05/26/23 22:27 Antibiotics) Review of Systems ROS Statement: Those systems with pertinent positive or pertinent negative responses have been documented in the HPI. ROS Other: All systems not noted in ROS Statement are negative. Past Medical History Past Medical History: Atrial Fibrillation, Heart Failure, Dementia, Diabetes Mellitus, Hypertension, Pneumonia Additional Past Medical History / Comment(s): TB in 1955, heart murmur History of Any Multi-Drug Resistant Organisms: C-DIFF Date of last positivie culture/infection: 10/17/22 MDRO Source:: stool Past Surgical History: Hysterectomy Additional Past Surgical History / Comment(s): partial left lung removal at [facility] Past Anesthesia/Blood Transfusion Reactions: No Reported Reaction Past Psychological History: No Psychological Hx Reported Smoking Status: Never smoker Past Alcohol Use History: Rare Past Drug Use History: None Reported - Past Family History Mother Family Medical History: Cancer Additional Family Medical History / Comment(s): Unknown type of cancer. Father Family Medical History: Myocardial Infarction ([place]) General Exam General appearance: alert, in no apparent distress Head exam: Present: atraumatic, normocephalic, normal inspection Eye exam: Present: normal appearance, PERRL, EOMI. Absent: scleral icterus, conjunctival injection, periorbital swelling ENT exam: Present: normal exam, mucous membranes moist Neck exam: Present: normal inspection. Absent: tenderness, meningismus, lymphadenopathy Respiratory exam: Present: normal lung sounds bilaterally. Absent: respiratory distress, wheezes, rales, rhonchi, stridor Cardiovascular Exam: Present: regular rate, normal rhythm, normal heart sounds. Absent: systolic murmur, diastolic murmur, rubs, gallop, clicks GI/Abdominal exam: Present: soft, normal bowel sounds. Absent: distended, tenderness, guarding, rebound, rigid Extremities exam: Present: normal inspection, full ROM, normal capillary refill. Absent: tenderness, pedal edema, joint swelling, calf tenderness Back exam: Present: normal inspection Neurological exam: Present: alert, oriented X3, CN II-XII intact Psychiatric exam: Present: normal affect, normal mood Skin exam: Present: warm, dry, intact, normal color. Absent: rash Course Vital Signs 05/26/23 05/26/23 05/26/23 20:45 21:14 21:30 Temperature 97.6 F Pulse Rate 52 L 53 L 56 L Respiratory 17 17 18 Rate Blood Pressure 141/59 135/68 O2 Sat by Pulse 99 Oximetry 05/26/23 05/26/23 05/27/23 22:20 22:50 00:00 Temperature Pulse Rate 55 L 56 L 57 L Respiratory 17 20 20 Rate Blood Pressure 157/64 O2 Sat by Pulse 99 99 Oximetry 05/27/23 05/27/23 05/27/23 01:00 02:00 03:00 Temperature Pulse Rate 54 L 55 L 59 L Respiratory 20 19 17 Rate Blood Pressure 169/66 154/60 O2 Sat by Pulse 97 Oximetry 05/27/23 05/27/23 05/27/23 05:00 07:39 11:42 Temperature Pulse Rate 66 57 L 50 L Respiratory 16 15 15 Rate Blood Pressure 152/66 153/59 125/62 O2 Sat by Pulse 97 98 100 Oximetry 05/27/23 17:00 Temperature Pulse Rate 60 Respiratory 15 Rate Blood Pressure 125/62 O2 Sat by Pulse 94 L Oximetry - Reevaluation(s) Reevaluation #1: 05/26/23 22:50 Medical records reviewed Reevaluation #2: 05/26/23 22:50 Patient has no change in symptoms here in the ER Reevaluation #3: 05/27/23 04:46 Patient informed results questions answered Reevaluation #4: 05/26/23 22:50 Was pt. sent in by a medical professional or institution (, PA, SCAFFOLD ERECTOR, urgent care, hospital, or [facility]...) When possible be specific @ -no Did you speak to anyone other than the patient for history (EMS, parent, family, police, friend...)? What history was obtained from this source @ -no Did you review nursing and triage notes (agree or disagree)? Why? @ -agree Are old charts reviewed (outside hosp., previous admission, EMS record, old EKG, old radiological studies, urgent care reports/EKG's, [facility] records)? Report findings @ -yes Differential Diagnosis (chest pain, altered mental status, abdominal pain women, abdominal pain men, vaginal bleeding, weakness, fever, dyspnea, syncope, headache, dizziness, GI bleed, back pain, seizure, CVA, palpatations, mental health, musculoskeletal)? @ -prior EKG interpreted by me (3pts min.). @ -yes X-rays interpreted by me (1pt min.). @ -yes CT interpreted by me (1pt min.). @ -yes U/S interpreted by me (1pt. min.). @ -no What testing was considered but not performed or refused? (CT, X-rays, U/S, labs)? Why? @ -none What meds were considered but not given or refused? Why? @ -none Did you discuss the management of the patient with other professionals (professionals i.e. , PA, SCAFFOLD ERECTOR, lab, RT, psych nurse, school social worker, information support project manager, teacher, medical officer, continuous pillowcase cutter)? Give summary @ -no Was smoking cessation discussed for >3mins.? @ -no Was critical care preformed (if so, how long)? @ -no Were there social determinants of health that impacted care today? How? (Homelessness, low income, unemployed, alcoholism, drug addiction, transportation, low edu. Level, literacy, decrease access to med. care, senior care, rehab)? @ -none Was there de-escalation of care discussed even if they declined (Discuss DNR or withdrawal of care, Hospice)? DNR status @ -no What co-morbidities impacted this encounter? (DM, HTN, Smoking, COPD, CAD, Cancer, CVA, ARF, Chemo, Hep., AIDS, mental health diagnosis, sleep apnea, morbid obesity)? @ -none Was patient admitted / discharged? Hospital course, mention meds given and route, prescriptions, significant lab abnormalities, going to OR and other pertinent info. @ - 87 female to the emergency department for evaluation. Patient presents today for evaluation regards to weakness abdominal pain back pain problems urinating with positive urinary tract infection who will be admitted for hydration IV antibiotics Admitted Undiagnosed new problem with uncertain prognosis? @ -no Drug Therapy requiring intensive monitoring for toxicity (Heparin, Nitro, Insulin, Cardizem)? @ -no Were any procedures done? @ -no Diagnosis/symptom? @ -Weakness, UTI, back pain Acute, or Chronic, or Acute on Chronic? @ -Acute Uncomplicated (without systemic symptoms) or Complicated (systemic symptoms)? @ -Complicated Side effects of treatment? @ -no Exacerbation, Progression, or Severe Exacerbation? @ -exacerbation Poses a threat to life or bodily function? How? (Chest pain, USA, LA, pneumonia, PE, COPD, DKA, ARF, appy, cholecystitis, CVA, Diverticulitis, Homicidal, Suicidal, threat to staff... and all critical care pts) @ -no Reevaluation #5: 05/26/23 22:50 Differential Weakness: Hypoglycemia, shock, sepsis, hyponatremia, anemia, infection, LA, ETOH, adverse medicine reaction, overdose, stroke, this is not meant to be an all-inclusive li st. EKG Findings - EKG Comments: EKG Findings:: EKG is sinus bradycardia 58 IN 207 QRS 134 QTC 497 - EKG Results: EKG: interpreted by KETAN Medical Decision Making - Medical Decision Making 87 female to the emergency department for evaluation. Patient presents today for evaluation regards to weakness abdominal pain back pain problems urinating with positive urinary tract infection who will be admitted for hydration IV antibiotics - Lab Data Result diagrams: 05/28/23 07:02 05/28/23 07:02 Lab Results 05/26/23 05/26/23 05/26/23 Range/Units 20:57 21:21 21:21 WBC 2.3 L (3.8-10.6) k/uL RBC 3.43 L (3.80-5.40) m/uL Hgb 11.4 (11.4-16.0) gm/dL Hct 35.3 (34.0-46.0) % MCV 103.0 H (80.0-100.0) fL MCH 33.3 (25.0-35.0) pg MCHC 32.3 (31.0-37.0) g/dL RDW 14.2 (11.5-15.5) % Plt Count 130 L (150-450) k/uL MPV 9.0 Neutrophils % 70 % Lymphocytes % 19 % Monocytes % 7 % Eosinophils % 2 % Basophils % 0 % Neutrophils # 1.6 (1.3-7.7) k/uL Lymphocytes # 0.4 L (1.0-4.8) k/uL Monocytes # 0.2 (0-1.0) k/uL Eosinophils # 0.0 (0-0.7) k/uL Basophils # 0.0 (0-0.2) k/uL Hypochromasia Slight Macrocytosis Slight PT 9.5 (9.0-12.0) sec INR 0.9 (<1.2) APTT 23.2 (22.0-30.0) sec Sodium (137-145) mmol/L Potassium (3.5-5.1) mmol/L Chloride (98-107) mmol/L Carbon Dioxide (22-30) mmol/L Anion Gap mmol/L BUN (7-17) mg/dL Creatinine (0.52-1.04) mg/dL Est GFR (CKD-EPI)AfAm (>60 ml/min/1.73 sqM) Est GFR (CKD-EPI)NonAf (>60 ml/min/1.73 sqM) Glucose (74-99) mg/dL POC Glucose (mg/dL) 57 L (70-110) mg/dL POC Glu Ecclesiastical Worker ID Hira Gilliland Plasma Lactic Acid Ronny (0.7-2.0) mmol/L Calcium (8.4-10.2) mg/dL Phosphorus (2.5-4.5) mg/dL Magnesium (1.6-2.3) mg/dL Total Bilirubin (0.2-1.3) mg/dL AST (14-36) U/L ALT (4-34) U/L Alkaline Phosphatase (38-126) U/L Troponin I (0.000-0.034) ng/mL NT-Pro-B Natriuret Pep pg/mL Total Protein (6.3-8.2) g/dL Albumin (3.5-5.0) g/dL TSH (0.465-4.680) mIU/L Urine Color Urine Appearance (Clear) Urine pH (5.0-8.0) Ur Specific Angie (1.001-1.035) Urine Protein (Negative) Urine Glucose (UA) (Negative) Urine Ketones (Negative) Urine Blood (Negative) Urine Nitrite (Negative) Urine Bilirubin (Negative) Urine Urobilinogen (<2.0) mg/dL Ur Leukocyte Esterase (Negative) Urine RBC (0-5) /hpf Urine WBC (0-5) /hpf Urine Bacteria (None) /hpf 05/26/23 05/26/23 05/26/23 Range/Units 21:21 21:21 21:21 WBC (3.8-10.6) k/uL RBC (3.80-5.40) m/uL Hgb (11.4-16.0) gm/dL Hct (34.0-46.0) % MCV (80.0-100.0) fL MCH (25.0-35.0) pg MCHC (31.0-37.0) g/dL RDW (11.5-15.5) % Plt Count (150-450) k/uL MPV Neutrophils % % Lymphocytes % % Monocytes % % Eosinophils % % Basophils % % Neutrophils # (1.3-7.7) k/uL Lymphocytes # (1.0-4.8) k/uL Monocytes # (0-1.0) k/uL Eosinophils # (0-0.7) k/uL Basophils # (0-0.2) k/uL Hypochromasia Macrocytosis PT (9.0-12.0) sec INR (<1.2) APTT (22.0-30.0) sec Sodium 139 (137-145) mmol/L Potassium 5.3 H (3.5-5.1) mmol/L Chloride 111 H (98-107) mmol/L Carbon Dioxide 16 L (22-30) mmol/L Anion Gap 12 mmol/L BUN 67 H (7-17) mg/dL Creatinine 2.32 H (0.52-1.04) mg/dL Est GFR (CKD-EPI)AfAm 21 (>60 ml/min/1.73 sqM) Est GFR (CKD-EPI)NonAf 18 (>60 ml/min/1.73 sqM) Glucose 49 L* (74-99) mg/dL POC Glucose (mg/dL) (70-110) mg/dL POC Glu Ecclesiastical Worker ID Plasma Lactic Acid Ronny 0.9 (0.7-2.0) mmol/L Calcium 8.5 (8.4-10.2) mg/dL Phosphorus 5.8 H (2.5-4.5) mg/dL Magnesium 2.0 (1.6-2.3) mg/dL Total Bilirubin 0.4 (0.2-1.3) mg/dL AST 29 (14-36) U/L ALT 23 (4-34) U/L Alkaline Phosphatase 58 (38-126) U/L Troponin I 0.025 (0.000-0.034) ng/mL NT-Pro-B Natriuret Pep 1290 pg/mL Total Protein 6.8 (6.3-8.2) g/dL Albumin 4.1 (3.5-5.0) g/dL TSH 0.563 (0.465-4.680) mIU/L Urine Color Urine Appearance (Clear) Urine pH (5.0-8.0) Ur Specific Angie (1.001-1.035) Urine Protein (Negative) Urine Glucose (UA) (Negative) Urine Ketones (Negative) Urine Blood (Negative) Urine Nitrite (Negative) Urine Bilirubin (Negative) Urine Urobilinogen (<2.0) mg/dL Ur Leukocyte Esterase (Negative) Urine RBC (0-5) /hpf Urine WBC (0-5) /hpf Urine Bacteria (None) /hpf 05/26/23 05/27/23 Range/Units 21:57 01:52 WBC (3.8-10.6) k/uL RBC (3.80-5.40) m/uL Hgb (11.4-16.0) gm/dL Hct (34.0-46.0) % MCV (80.0-100.0) fL MCH (25.0-35.0) pg MCHC (31.0-37.0) g/dL RDW (11.5-15.5) % Plt Count (150-450) k/uL MPV Neutrophils % % Lymphocytes % % Monocytes % % Eosinophils % % Basophils % % Neutrophils # (1.3-7.7) k/uL Lymphocytes # (1.0-4.8) k/uL Monocytes # (0-1.0) k/uL Eosinophils # (0-0.7) k/uL Basophils # (0-0.2) k/uL Hypochromasia Macrocytosis PT (9.0-12.0) sec INR (<1.2) APTT (22.0-30.0) sec Sodium (137-145) mmol/L Potassium (3.5-5.1) mmol/L Chloride (98-107) mmol/L Carbon Dioxide (22-30) mmol/L Anion Gap mmol/L BUN (7-17) mg/dL Creatinine (0.52-1.04) mg/dL Est GFR (CKD-EPI)AfAm (>60 ml/min/1.73 sqM) Est GFR (CKD-EPI)NonAf (>60 ml/min/1.73 sqM) Glucose (74-99) mg/dL POC Glucose (mg/dL) 93 (70-110) mg/dL POC Glu Ecclesiastical Worker ID Aguilera, [place] Plasma Lactic Acid Ronny (0.7-2.0) mmol/L Calcium (8.4-10.2) mg/dL Phosphorus (2.5-4.5) mg/dL Magnesium (1.6-2.3) mg/dL Total Bilirubin (0.2-1.3) mg/dL AST (14-36) U/L ALT (4-34) U/L Alkaline Phosphatase (38-126) U/L Troponin I (0.000-0.034) ng/mL NT-Pro-B Natriuret Pep pg/mL Total Protein (6.3-8.2) g/dL Albumin (3.5-5.0) g/dL TSH (0.465-4.680) mIU/L Urine Color Yellow Urine Appearance Clear (Clear) Urine pH 5.5 (5.0-8.0) Ur Specific Angie 1.015 (1.001-1.035) Urine Protein Negative (Negative) Urine Glucose (UA) Negative (Negative) Urine Ketones Negative (Negative) Urine Blood SMALL (Negative) Urine Nitrite Negative (Negative) Urine Bilirubin Negative (Negative) Urine Urobilinogen 0.2 (<2.0) mg/dL Ur Leukocyte Esterase LARGE (Negative) Urine RBC 2 (0-5) /hpf Urine WBC 12 H (0-5) /hpf Urine Bacteria Many H (None) /hpf - EKG Data -: EKG Interpreted by Al - Radiology Data Radiology results: report reviewed (CT abdomen and pelvis negative for acute disease as x-rays negative for acute disease), image reviewed Disposition Clinical Impression: Weakness, UTI (urinary tract infection), Abdominal pain, Back pain Disposition: ADMITTED IP TO THIS [facility] Condition: Fair Is patient prescribed a controlled substance at d/c from ED?: No Time of Disposition: 04:30
[2023-05-26 22:13] LABS: ALT 23 U/L (4-34); AST 29 U/L (14-36); African American GFR (CKD) 21 (>60 ml/min/1.73 sqM); Albumin 4.1 g/dL (3.5-5.0); Alkaline Phosphatase 58 U/L (38-126); Anion Gap 12 mmol/L; Blood Urea Nitrogen 67 mg/dL (7-17); Calcium 8.5 mg/dL (8.4-10.2); Carbon Dioxide 16 mmol/L (22-30); Chloride 111 mmol/L (98-107); Non-African American GFR(CKD) 18 (>60 ml/min/1.73 sqM); Phosphorus 5.8 mg/dL (2.5-4.5); Potassium 5.3 mmol/L (3.5-5.1); Sodium 139 mmol/L (137-145); Total Bilirubin 0.4 mg/dL (0.2-1.3); Total Protein 6.8 g/dL (6.3-8.2)
[2023-05-26 22:19] LABS: Glucose 49 mg/dL (74-99)
[2023-05-26 22:21] LABS: Basophils % (A) 0 %; Eosinophils % (A) 2 %; HCT 35.3 % (34.0-46.0); HGB 11.4 gm/dL (11.4-16.0); Hypochromasia Slight; Lymphocytes # (A) 0.4 k/uL (1.0-4.8); Lymphocytes % (A) 19 %; MCH 33.3 pg (25.0-35.0); MCHC 32.3 g/dL (31.0-37.0); Macrocytosis Slight; Monocytes # (A) 0.2 k/uL (0-1.0); Monocytes % (A) 7 %; NT-Pro-B-Type Natriuretic Pept 1290 pg/mL; Neutrophils # (A) 1.6 k/uL (1.3-7.7); Neutrophils % (A) 70 %; Platelet Count 130 k/uL (150-450); RBC 3.43 m/uL (3.80-5.40); RDW 14.2 % (11.5-15.5); WBC 2.3 k/uL (3.8-10.6)
[2023-05-26 22:28] LABS: INR 0.9 (<1.2); Partial Thromboplastin Time 23.2 sec (22.0-30.0); Prothrombin Time 9.5 sec (9.0-12.0)
[2023-05-27] MEDS ORDERED: LORazepam 2 MG/ML INJ IV STA (00:26)
[2023-05-27] MEDS ORDERED: MORPHINE SULFATE 4 MG/ML SYRINGE IVP STA (00:26)
[2023-05-27 02:29] LABS: Appearance,Urine Clear (Clear); Color,Urine Yellow; PH, Urine 5.5 (5.0-8.0)
[2023-05-27 02:30] LABS: Bilirubin,Urine Negative (Negative); Glucose,Urine (UA) Negative (Negative); Ketones,Urine Negative (Negative); Nitrite,Urine Negative (Negative); Protein,Urine Negative (Negative); Urobilinogen,Urine 0.2 mg/dL (<2.0)
--- NOTE | 2023-05-27 02:38 | CT ---
EXAM: CT Abdomen and Pelvis Without Intravenous Contrast CLINICAL HISTORY: ITS.REASON CT Reason: pain TECHNIQUE: Axial computed tomography images of the abdomen and pelvis without intravenous contrast. CTDI is 16.5 mGy and DLP is 912.6 mGy-cm. This CT exam was performed using one or more of the following dose reduction techniques: automated exposure control, adjustment of the mA and/or kV according to patient size, and/or use of iterative reconstruction technique. COMPARISON: May 01, 2021 FINDINGS: ABDOMEN: Liver: Unremarkable. Gallbladder and bile ducts: Unremarkable. Pancreas: Unremarkable. Spleen: Unremarkable. Adrenals: Unremarkable. Kidneys and ureters: See below. Stomach and bowel: No bowel obstruction or inflammatory changes. Colonic diverticulosis without diverticulitis. Cortical cysts on the left kidney. Right kidney is unremarkable. No hydronephrosis. PELVIS: Appendix: No findings to suggest acute appendicitis. Bladder: Unremarkable. Reproductive: Hysterectomy. ABDOMEN and PELVIS: Intraperitoneal space: Unremarkable. No free air. No significant fluid collection. Bones/joints: Severe degenerative changes in the lumbar spine. Multilevel severe spinal canal stenosis. Soft tissues: Unremarkable. Vasculature: Aortobiiliac atherosclerotic calcifications. Lymph nodes: Unremarkable. IMPRESSION: 1. No acute abnormality within the abdomen or pelvis. 2. 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 Multilevel severe spinal canal stenosis.
[2023-05-27 03:09] LABS: Specific Gravity,Urine 1.015 (1.001-1.035)
[2023-05-27 03:11] LABS: Blood,Urine SMALL (Negative); Leukocyte Esterase,Urine LARGE (Negative)
[2023-05-27 03:13] LABS: RBC,Urine 2 /hpf (0-5); WBC,Urine 12 /hpf (0-5)
[2023-05-27 03:14] LABS: Bacteria,Urine Many /hpf
[2023-05-27] MEDS ORDERED: MORPHINE SULFATE 4 MG/ML SYRINGE IV PRN (04:42)
[2023-05-27] MEDS ORDERED: ONDANSETRON 4 MG/2 ML VIAL IVP PRN (04:42)
[2023-05-27] MEDS ORDERED: SODIUM CHLORIDE 0.9% 1,000 ML IV STA (04:42)
[2023-05-27] MEDS ORDERED: ACETAMINOPHEN TAB 325 MG TAB PO PRN (04:42)
[2023-05-27] MEDS ORDERED: NALOXONE 0.4 MG/ML 1 ML VIAL IV PRN (04:42)
[2023-05-27] MEDS ORDERED: SODIUM CHLORIDE 0.9% 1,000 ML IV SCH ×2 (04:45)
[2023-05-27] MEDS ORDERED: DEXTROSE 50% SYRINGE 50 ML IVP PRN ×2 (10:14)
[2023-05-27] MEDS: AMIODARONE 200 MG TAB PO SCH (11:46)
--- NOTE | 2023-05-27 12:16 | P.NPCON ---
History of Present Illness - Reason for Consult acute renal failure - History of Present Illness Reason for consultation: Acute kidney injury History of present illness: Patient is a 87-year-old female seen in renal consultation for acute kidney injury. Patient denies prior history of kidney disease. Patient's creatinine in October 2022 was as low as 0.9. Patient came to the hospital due to feeling "cold" and "funny". Patient says she's been having diarrhea for about 3 days but is intermittent. She states that she has history of dementia and felt confused and came to the hospital. She does have history of diabetes. Patient's blood glucose was noted to be low at 49 on admission. She does have history of hypertension and is maintained on losartan. Blood pressure stable this admission. Denies gross hematuria or dysuria. Denies history of coronary artery disease. Denies use of nonsteroidals. Oral intake has been fair. No vomiting. No chest pain or shortness breath. No edema. Creatinine 2.3-1 admission and also noted to be acidotic with a bicarb level of 16. Vital signs are stable. General: No acute distress. HEENT: Head exam is unremarkable. LUNGS: No audible rhonchi or wheezes. HEART: Rate and Rhythm are regular. ABDOMEN: Nontender. EXTREMITITES: No edema. Past Medical History Past Medical History: Atrial Fibrillation, Heart Failure, Dementia, Diabetes Mellitus, Hypertension, Pneumonia Additional Past Medical History / Comment(s): TB in 1955, heart murmur History of Any Multi-Drug Resistant Organisms: C-DIFF Date of last positivie culture/infection: 10/17/22 MDRO Source:: stool Past Surgical History: Hysterectomy Additional Past Surgical History / Comment(s): partial left lung removal at [facility] Past Anesthesia/Blood Transfusion Reactions: No Reported Reaction Past Psychological History: No Psychological Hx Reported Smoking Status: Never smoker Past Alcohol Use History: Rare Past Drug Use History: None Reported - Past Family History Mother Family Medical History: Cancer Additional Family Medical History / Comment(s): Unknown type of cancer. Father Family Medical History: Myocardial Infarction ([place]) Medications and Allergies Home Medications Medication Instructions Recorded Confirmed Type Lovastatin [Mevacor] 20 mg PO HS 05/01/21 05/26/23 History Memantine [Namenda] 10 mg PO DAILY 05/01/21 05/26/23 History Clopidogrel [Plavix] 75 mg PO DAILY@1200 10/05/22 05/26/23 History Donepezil [Aricept] 5 mg PO DAILY@1200 10/05/22 05/26/23 History Ferrous Sulfate [Iron (65 MG 325 mg PO DAILY@1700 10/05/22 05/26/23 History Elemental)] Meclizine [Antivert] 25 mg PO DAILY@1700 10/17/22 05/26/23 History Amiodarone [Cordarone] 200 mg PO DAILY 05/26/23 05/26/23 History Ergocalciferol (Vitamin D2) 1,250 mcg PO Q7D 05/26/23 05/26/23 History [Drisdol (50,000 Iu)] Losartan [Cozaar] 25 mg PO HS 05/26/23 05/26/23 History glipiZIDE [Glucotrol] 5 mg PO DAILY 05/26/23 05/26/23 History Allergies Allergy/AdvReac Type Severity Reaction Status Date / Time Sulfa (Sulfonamide Allergy Rash/Hives Verified 05/26/23 22:27 Antibiotics) Physical Exam Vitals: Vital Signs Temp Pulse Resp BP Pulse Ox 05/27/23 11:42 50 L 15 125/62 100 05/27/23 07:39 57 L 15 153/59 98 05/27/23 05:00 66 16 152/66 97 05/27/23 03:00 59 L 17 154/60 05/27/23 02:00 55 L 19 05/27/23 01:00 54 L 20 169/66 97 05/27/23 00:00 57 L 20 157/64 05/26/23 22:50 56 L 20 99 05/26/23 22:20 55 L 17 99 05/26/23 21:30 56 L 18 135/68 05/26/23 21:14 53 L 17 141/59 05/26/23 20:45 97.6 F 52 L 17 99 Intake and Output 05/26/23 05/27/23 05/27/23 22:59 06:59 14:59 Other: Weight 74.843 kg Results - Lab Results Most recent lab results Calcium 8.5 mg/dL (8.4-10.2) 05/26/23 21:21 Phosphorus 5.8 mg/dL (2.5-4.5) H 05/26/23 21:21 Magnesium 2.0 mg/dL (1.6-2.3) 05/26/23 21:21 05/26/23 21:21 05/26/23 21:21 Assessment and Plan Plan: Assessment: 1. Acute kidney injury mostly prerenal secondary to hypovolemia from diarrhea and further worsened with the use of ANDI inhibitor. Creatinine 2.320 admission. Creatinine as low as 0.91 in October 2022. UA benign. No hydronephrosis noted on CAT scan. 2. Benign hypertension. Controlled. 3. Metabolic acidosis secondary to acute kidney injury and GI losses. 4. Hyperkalemia secondary to acute kidney injury, lisinopril and acidosis. 5. Diabetes mellitus. Plan: Maintain IV fluids. Patient received 2 L in the ER. Hold lisinopril. Hold hydralazine for systolic blood pressure less than 120. Add oral bicarb. Avoid nephrotoxins. Continue to monitor renal function and urine output. Thank you for the consultation. I will continue to follow the patient with you during her hospital stay.
[2023-05-27 12:28] LABS: HCT 32.8 % (34.0-46.0); HGB 10.8 gm/dL (11.4-16.0); Hypochromasia Marked; MCH 34.2 pg (25.0-35.0); MCHC 32.8 g/dL (31.0-37.0); MCV 104.1 fL (80.0-100.0); Macrocytosis Slight; Mean Platelet Volume 8.7; Platelet Count 117 k/uL (150-450); RBC 3.15 m/uL (3.80-5.40); RDW 13.9 % (11.5-15.5); WBC 3.4 k/uL (3.8-10.6)
[2023-05-27 13:03] LABS: African American GFR (CKD) 35 (>60 ml/min/1.73 sqM); Anion Gap 9 mmol/L; Blood Urea Nitrogen 53 mg/dL (7-17); Carbon Dioxide 15 mmol/L (22-30); Chloride 114 mmol/L (98-107); Glucose 156 mg/dL (74-99); Magnesium 1.9 mg/dL (1.6-2.3); Non-African American GFR(CKD) 31 (>60 ml/min/1.73 sqM); Phosphorus 4.1 mg/dL (2.5-4.5); Sodium 138 mmol/L (137-145)
[2023-05-27 13:06] LABS: Potassium 5.8 mmol/L (3.5-5.1)
[2023-05-27] MEDS: MEMANTINE 10 MG TAB PO SCH (14:05)
[2023-05-27] MEDS: DONEPEZIL 5 MG TAB PO SCH (14:06)
[2023-05-27] MEDS: CLOPIDOGREL 75 MG TAB PO SCH (14:06)
[2023-05-27] MEDS: SODIUM BICARBONATE TAB 650 MG TAB PO SCH ×3 (14:06→21:49)
[2023-05-27] MEDS: SODIUM CHLORIDE 0.9% 1,000 ML IV SCH (14:07)
[2023-05-27] MEDS: INSULIN ASPART (NovoLOG) 100 UNIT/ML VIAL SQ SCH ×3 (14:08→20:37)
[2023-05-27 14:13] LABS: Glucose,Whole Blood 171 mg/dL (70-110)
--- NOTE | 2023-05-27 14:54 | P.HPIM ---
History of Present Illness H&P Date: 05/27/23 Chief Complaint: Increased weakness, diarrhea, increased confusion This is an 87-year-old female with past medical history significant for recurrent C. difficile colitis , recurrent UTI,sunder mild dementia ,proximal atrial fibrillation not on anticoagulation, aortic stenosis, CHF, hypertension, hyperlipidemia, diabetes mellitus type 2, peripheral vascular disease and multiple other medical issues presented to the ER with complaints of increased generalized weakness, diarrhea-does not recall how many episodes daily, mild increased confusion-thought she might be coming down with a UTI. Denies frequency, dysuria, hematuria. Denies suprapubic pain. Denies abdominal pain. Denies fever, chills. Denies chest pain, palpitations or shortness of breath. Afebrile, WBC 2.3. Hemoglobin 11.4, platelets 130, sodium 139, potassium 5.3, bicarb 16, BUN 67, creatinine 2.32, glucose 49, 93, lactic acid 0.9, troponin 0.025, TSH 0.563, UA reported many bacteria, large leukocytes, negative nitrates. Review of Systems ROS Statement: Those systems with pertinent positive or pertinent negative responses have been documented in the HPI. ROS Other: All systems not noted in ROS Statement are negative. Past Medical History Past Medical History: Atrial Fibrillation, Heart Failure, Dementia, Diabetes Mellitus, Hypertension, Pneumonia Additional Past Medical History / Comment(s): TB in 1955, heart murmur History of Any Multi-Drug Resistant Organisms: C-DIFF Date of last positivie culture/infection: 10/17/22 MDRO Source:: stool Past Surgical History: Hysterectomy Additional Past Surgical History / Comment(s): partial left lung removal at [facility] Past Anesthesia/Blood Transfusion Reactions: No Reported Reaction Past Psychological History: No Psychological Hx Reported Smoking Status: Never smoker Past Alcohol Use History: Rare Past Drug Use History: None Reported - Past Family History Mother Family Medical History: Cancer Additional Family Medical History / Comment(s): Unknown type of cancer. Father Family Medical History: Myocardial Infarction ([place]) Medications and Allergies Home Medications Medication Instructions Recorded Confirmed Type Lovastatin [Mevacor] 20 mg PO HS 05/01/21 05/26/23 History Memantine [Namenda] 10 mg PO DAILY 05/01/21 05/26/23 History Clopidogrel [Plavix] 75 mg PO DAILY@1200 10/05/22 05/26/23 History Donepezil [Aricept] 5 mg PO DAILY@1200 10/05/22 05/26/23 History Ferrous Sulfate [Iron (65 MG 325 mg PO DAILY@1700 10/05/22 05/26/23 History Elemental)] Meclizine [Antivert] 25 mg PO DAILY@1700 10/17/22 05/26/23 History Amiodarone [Cordarone] 200 mg PO DAILY 05/26/23 05/26/23 History Ergocalciferol (Vitamin D2) 1,250 mcg PO Q7D 05/26/23 05/26/23 History [Drisdol (50,000 Iu)] Losartan [Cozaar] 25 mg PO HS 05/26/23 05/26/23 History glipiZIDE [Glucotrol] 5 mg PO DAILY 05/26/23 05/26/23 History Allergies Allergy/AdvReac Type Severity Reaction Status Date / Time Sulfa (Sulfonamide Allergy Rash/Hives Verified 05/26/23 22:27 Antibiotics) Physical Exam Vitals: Vital Signs Temp Pulse Resp BP Pulse Ox 05/27/23 07:39 57 L 15 153/59 98 05/27/23 05:00 66 16 152/66 97 05/27/23 03:00 59 L 17 154/60 05/27/23 02:00 55 L 19 05/27/23 01:00 54 L 20 169/66 97 05/27/23 00:00 57 L 20 157/64 05/26/23 22:50 56 L 20 99 05/26/23 22:20 55 L 17 99 05/26/23 21:30 56 L 18 135/68 05/26/23 21:14 53 L 17 141/59 05/26/23 20:45 97.6 F 52 L 17 99 Intake and Output 05/26/23 05/27/23 05/27/23 22:59 06:59 14:59 Other: Weight 74.843 kg GENERAL: This is a 87-year-old female , well-developed, well-nourished, sitting up in bed, alert and oriented x3,NAD. HEENT: Pupils are round and equally reacting to light. EOMI. No scleral icterus. No conjunctival pallor. Normocephalic, atraumatic. Neck supple, no JVD CARDIOVASCULAR: S1 and S2 present. No murmurs, rubs, or gallops. PULMONARY: Unlabored ,Chest is clear to auscultation, no wheezing or crackles. ABDOMEN: Soft, nontender, nondistended, normoactive bowel sounds. No palpable organomegaly. EXTREMITIES: No cyanosis, clubbing, or pedal edema. NEUROLOGICAL: Gross neurological examination did not reveal any focal deficits. SKIN: Warm and dry, No rashes. Results CBC & Chem 7: 05/27/23 12:11 05/27/23 12:11 Labs: Abnormal Lab Results - Last 24 Hours (Table) 05/26/23 05/26/23 05/26/23 Range/Units 20:57 21:21 21:21 WBC 2.3 L (3.8-10.6) k/uL RBC 3.43 L (3.80-5.40) m/uL MCV 103.0 H (80.0-100.0) fL Plt Count 130 L (150-450) k/uL Lymphocytes # 0.4 L (1.0-4.8) k/uL Potassium 5.3 H (3.5-5.1) mmol/L Chloride 111 H (98-107) mmol/L Carbon Dioxide 16 L (22-30) mmol/L BUN 67 H (7-17) mg/dL Creatinine 2.32 H (0.52-1.04) mg/dL Glucose 49 L* (74-99) mg/dL POC Glucose (mg/dL) 57 L (70-110) mg/dL Phosphorus 5.8 H (2.5-4.5) mg/dL Urine WBC (0-5) /hpf Urine Bacteria (None) /hpf 05/27/23 Range/Units 01:52 WBC (3.8-10.6) k/uL RBC (3.80-5.40) m/uL MCV (80.0-100.0) fL Plt Count (150-450) k/uL Lymphocytes # (1.0-4.8) k/uL Potassium (3.5-5.1) mmol/L Chloride (98-107) mmol/L Carbon Dioxide (22-30) mmol/L BUN (7-17) mg/dL Creatinine (0.52-1.04) mg/dL Glucose (74-99) mg/dL POC Glucose (mg/dL) (70-110) mg/dL Phosphorus (2.5-4.5) mg/dL Urine WBC 12 H (0-5) /hpf Urine Bacteria Many H (None) /hpf Assessment and Plan Assessment: Increased weakness, diarrhea, mild increased confusion, in a patient with history of mild underlying dementia. Baseline creatinine 0.9. Ruling out C. difficile colitis in a patient with history of. Acute metabolic encephalopathy, mild, secondary to the above Acute renal failure, prerenal, secondary to diarrhea, medication induced-ANDI inhibitor,ARB Hyperkalemia secondary to the above Possible chronic renal failure stage III, though patient denies prior history of. Metabolic acidosis secondary to the above, bicarb 16 Diabetes mellitus II, hypoglycemic on admission Hypertension Hyperlipidemia Chronic CHF, diastolic dysfunction Chronic proximal atrial fibrillation, not on anticoagulation Mild aortic stenosis Pulmonary hypertension Peripheral vascular disease Gait dysfunction, uses a cane or walker History of nicotine dependence Plan: Continue on current medication regime ,monitoring and symptomatic treatment. Repeat Labs.pending .Stool for for C. diff culture ordered. ANDI and ARB placed on hold. Hydralazine ordered with parameters to hold for systolic blood pressure less than 120. Telemetry monitoring. IV fluids decreased, history of CHF. Bicarb. Nephrology consulted with recommendations pending. Close monitoring of renal function , electrolytes with repeat labs ordered for a.m. Close monitoring of blood sugars with sliding scale ordered. The impression and plan of care has been dictated as directed. : I performed a history and examination of this patient, discussed the same with the dictator. I agree with the dictator's note ,documented as a scribe. Any additional findings or plans will be noted.
[2023-05-27] MEDS: hydrALAZINE HCL 25 MG TAB PO SCH ×3 (16:10→21:49)
[2023-05-27] MEDS ORDERED: MECLIZINE 25 MG TAB PO SCH (17:00)
[2023-05-27] MEDS ORDERED: FERROUS SULFATE 325 MG TAB PO SCH (17:00)
[2023-05-27 20:13] LABS: Glucose,Whole Blood 187 mg/dL (70-110)
[2023-05-27] MEDS ORDERED: ATORVASTATIN 10 MG TAB PO SCH (21:00)
[2023-05-27] MEDS: HEPARIN SODIUM,PORCINE/PF 5,000 UNIT/0.5 ML SYRINGE SQ SCH (21:49)
[2023-05-28] MEDS: SODIUM CHLORIDE 0.9% 1,000 ML IV SCH (01:56)
[2023-05-28 07:13] LABS: Glucose,Whole Blood 111 mg/dL (70-110)
[2023-05-28] MEDS: INSULIN ASPART (NovoLOG) 100 UNIT/ML VIAL SQ SCH ×2 (08:09→12:14)
[2023-05-28 08:15] VITALS: RESP 18
[2023-05-28] MEDS: MEMANTINE 10 MG TAB PO SCH (08:15)
[2023-05-28] MEDS: hydrALAZINE HCL 25 MG TAB PO SCH ×2 (08:15→13:03)
[2023-05-28] MEDS: AMIODARONE 200 MG TAB PO SCH (08:15)
[2023-05-28] MEDS: SODIUM BICARBONATE TAB 650 MG TAB PO SCH (08:15)
[2023-05-28] MEDS: HEPARIN SODIUM,PORCINE/PF 5,000 UNIT/0.5 ML SYRINGE SQ SCH (08:16)
[2023-05-28 12:12] LABS: Glucose,Whole Blood 133 mg/dL (70-110)
[2023-05-28 12:45] VITALS: BP 135/60; PULSE 56; TEMP 97.2
[2023-05-28 12:49] LABS: Basophils # (A) 0.02 X 10*3/uL (0.00-0.10); Basophils % (A) 0.7 %; Eosinophils # (A) 0.07 X 10*3/uL (0.04-0.35); Eosinophils % (A) 2.3 %; HCT 32.2 % (37.2-46.3); Lymphocytes # (A) 1.11 X 10*3/uL (0.90-5.00); Lymphocytes % (A) 36.4 %; MCH 31.8 pg (27.0-32.0); MCHC 31.1 d/dL (32.0-37.0); MCV 102.5 FL (80.0-97.0); Mean Platelet Volume 11.5 FL (9.5-12.2); Monocytes # (A) 0.34 X 10*3/uL (0.20-1.00); Monocytes % (A) 11.1 %; NRBC Per 100 WBC 0 X 10*3/uL (0.00-0.01); Neutrophils # (A) 1.49 X 10*3/uL (1.80-7.70); Neutrophils % (A) 48.8 %; Platelet Count 122 X 10*3/uL (140-440); RBC 3.14 X 10*6/uL (4.10-5.20); RDW 13.7 % (11.5-14.5); WBC 3.05 X 10*3/uL (4.50-10.00)
[2023-05-28] MEDS: CLOPIDOGREL 75 MG TAB PO SCH (13:03)
[2023-05-28] MEDS: DONEPEZIL 5 MG TAB PO SCH (13:04)
[2023-05-28 15:05] LABS: ALT 15 U/L (8-44); AST 17 U/L (13-35); Albumin 3.7 d/dL (3.8-4.9); Albumin/Globulin Ratio 2.06 Ratio (1.60-3.17); Alkaline Phosphatase 52 U/L (41-126); BUN/Creat Ratio 27.14 Ratio (12.00-20.00); Calcium 8.6 mg/dL (8.7-10.3); Carbon Dioxide 18.4 mmol/L (21.6-31.8); Chloride 114 mmol/L (96-109); Globulin 1.8 d/dL (1.6-3.3); Glucose 103 mg/dL (70-110); Magnesium 1.8 mg/dL (1.5-2.4); Phosphorus 2.8 mg/dL (2.4-5.1); Potassium 5.5 mmol/L (3.5-5.5); Sodium 143 mmol/L (135-145); Total Bilirubin <0.2 mg/dL (0.3-1.2); Total Protein 5.5 d/dL (6.2-8.2)
--- NOTE | 2023-05-28 16:30 | P.CRDCN ---
History of Present Illness Consult date: 05/28/23 History of present illness: HISTORY OF PRESENTING ILLNESS Patient is a 87-year-old female with past medical history of paroxysmal atrial fibrillation on anticoagulation with Eliquis 2.5 mg, mild aortic stenosis, congestive heart failure with preserved ejection fraction, hypertension, dyslipidemia, type 2 diabetes, peripheral arterial disease. She is known to Dr. Grande. This patient presented to the hospital because of pain and burning while passing urine. She also complained for generalized weakness and mild confusion. He did not have any chest pain chest pressure or shortness of breath. She did not have any palpitations lightheadedness or dizziness. She did not have any syncopal episodes. She has been treated with IV antibiotics for possible urinary tract infection. Cardiology was consulted for sinus bradycardia. DIAGNOSTICS EKG reveals sinus bradycardia with incomplete left bundle branch block. Laboratory reviewed, hemoglobin 10, BP 138, creatinine 1.4, urine analysis positive for leukocyte esterase. Documented home cardiac medications include Plavix, hydralazine, amiodarone REVIEW OF SYSTEMS At the time of my exam: CONSTITUTIONAL: Denies fever or chills. CARDIOVASCULAR: Denies chest pain, shortness of breath, orthopnea, PND or palpitations. RESPIRATORY: Denies cough. GASTROINTESTINAL: Denies abdominal pain, diarrhea, constipation, nausea or vomiting. MUSCULOSKELETAL: Denies myalgias. NEUROLOGIC: Denies numbness, tingling or weakness. ENDOCRINE: Denies fatigue, weight change, polydipsia or polyurina. GENITOURINARY: Denies burning, hematuria or urgency with micturation. HEMATOLOGIC: Denies history of anemia or bleeding. PHYSICAL EXAMINATION Vital signs reviewed. CONSTITUTIONAL: No apparent distress. HEENT: Head is normocephalic. Pupils are equal, round. Sclerae anicteric. Mucous membranes of the mouth are moist. No JVD. No carotid bruit. CHEST EXAMINATION: Lungs are clear to auscultation. No chest wall tenderness is noted on palpation or with deep breathing. HEART EXAMINATION: Regular rate and rhythm. S1, S2 heard. No murmurs, gallops or rub. ABDOMEN: Soft, nontender. Positive bowel sounds. EXTREMITIES: 2+ peripheral pulses, no lower extremity edema and no calf tenderness. NEUROLOGIC EXAMINATION: Patient is awake, alert and oriented x3. ASSESSMENT Sinus bradycardia History of oxacillin atrial fibrillation on anticoagulation with Eliquis 2.5 mg twice a day and rhythm controlled with amiodarone 200 mg daily JOSÉ LUIS Essential hypertension Dyslipidemia Type II Diabetes Urinary tract infection Documented history of mild aortic stenosis PLAN Reduce amiodarone from 200 mg to 100 mg daily Discontinue Plavix. Start Eliquis 2.5 mg twice a day Discontinue hydralazine. Start amlodipine 5 mg daily Obtain 2-D echocardiogram to look for degree of aortic stenosis Put patient on telemetry Past Medical History Past Medical History: Atrial Fibrillation, Heart Failure, Dementia, Diabetes Mellitus, Hypertension, Pneumonia Additional Past Medical History / Comment(s): TB in 1955, heart murmur History of Any Multi-Drug Resistant Organisms: C-DIFF Date of last positivie culture/infection: 10/17/22 MDRO Source:: stool Past Surgical History: Hysterectomy Additional Past Surgical History / Comment(s): partial left lung removal at [facility] Past Anesthesia/Blood Transfusion Reactions: No Reported Reaction Past Psychological History: No Psychological Hx Reported Smoking Status: Never smoker Past Alcohol Use History: Rare Past Drug Use History: None Reported - Past Family History Mother Family Medical History: Cancer Additional Family Medical History / Comment(s): Unknown type of cancer. Father Family Medical History: Myocardial Infarction ([place]) Medications and Allergies Home Medications Medication Instructions Recorded Confirmed Type Lovastatin [Mevacor] 20 mg PO HS 05/01/21 05/26/23 History Memantine [Namenda] 10 mg PO DAILY 05/01/21 05/26/23 History Clopidogrel [Plavix] 75 mg PO DAILY@1200 10/05/22 05/26/23 History Donepezil [Aricept] 5 mg PO DAILY@1200 10/05/22 05/26/23 History Ferrous Sulfate [Iron (65 MG 325 mg PO DAILY@1700 10/05/22 05/26/23 History Elemental)] Meclizine [Antivert] 25 mg PO DAILY@1700 10/17/22 05/26/23 History Ergocalciferol (Vitamin D2) 1,250 mcg PO Q7D 05/26/23 05/26/23 History [Drisdol (50,000 Iu)] Amiodarone [Cordarone] 100 mg PO DAILY #30 tab 05/28/23 Rx hydrALAZINE HCL [Apresoline] 25 mg PO QID #120 tab 05/28/23 Rx Allergies Allergy/AdvReac Type Severity Reaction Status Date / Time Sulfa (Sulfonamide Allergy Rash/Hives Verified 05/26/23 22:27 Antibiotics) Physical Exam Vitals: Vital Signs Temp Pulse Pulse Resp BP BP Pulse Ox 05/28/23 12:09 97.2 F L 56 L 18 135/60 97 05/28/23 07:40 94 L 05/28/23 07:11 97.7 F 60 18 144/74 94 L 05/28/23 01:05 97.5 F L 54 L 14 121/62 94 L 05/27/23 19:45 56 L 05/27/23 19:10 97.9 F 58 L 17 120/70 96 05/27/23 17:00 60 15 125/62 94 L Intake and Output 05/28/23 05/28/23 05/28/23 06:59 14:59 22:59 Other: Voiding Method Toilet Diaper Incontinent # Voids 2 # Bowel Movements 1 Results 05/28/23 07:02 05/28/23 07:02 Cardiac Enzymes 05/28/23 Range/Units 07:02 AST 17 (13-35) U/L CBC 05/28/23 Range/Units 07:02 WBC 3.05 L (4.50-10.00) X 10*3/uL RBC 3.14 L (4.10-5.20) X 10*6/uL Hgb 10.0 L (12.0-15.0) d/dL Hct 32.2 L (37.2-46.3) % Plt Count 122 L (140-440) X 10*3/uL Comprehensive Metabolic Panel 05/28/23 Range/Units 07:02 Sodium 143 (135-145) mmol/L Potassium 5.5 (3.5-5.5) mmol/L Chloride 114 H (96-109) mmol/L Carbon Dioxide 18.4 L (21.6-31.8) mmol/L BUN 38.0 H (9.0-27.0) mg/dL Creatinine 1.4 (0.6-1.5) mg/dL Glucose 103 (70-110) mg/dL Calcium 8.6 L (8.7-10.3) mg/dL AST 17 (13-35) U/L ALT 15 (8-44) U/L Alkaline Phosphatase 52 (41-126) U/L Total Protein 5.5 L (6.2-8.2) d/dL Albumin 3.7 L (3.8-4.9) d/dL Current Medications Generic Name Dose Route Start Last Admin Trade Name Freq PRN Reason Stop Dose Admin Acetaminophen 650 mg 05/27/23 04:42 Acetaminophen Tab 325 Mg Tab PO Q6HR PRN Mild Pain or Fever > 100.5 Amiodarone HCl 100 mg 05/29/23 09:00 Amiodarone 100 Mg Tab PO DAILY [facility] Amlodipine Besylate 5 mg 05/29/23 09:00 Amlodipine 5 Mg Tab PO DAILY [facility] Apixaban 2.5 mg 05/28/23 21:00 Apixaban 5 Mg Tab PO BID [facility] Protocol Atorvastatin Calcium 10 mg 05/27/23 21:00 05/27/23 21:49 Atorvastatin 10 Mg Tab PO 10 mg HS [facility] Administration Dextrose/Water 25 ml 05/27/23 10:14 Dextrose 50% Syringe 50 Ml IVP PER PROTOCOL PRN Hypoglycemia Protocol Dextrose/Water 50 ml 05/27/23 10:14 Dextrose 50% Syringe 50 Ml IVP PER PROTOCOL PRN Hypoglycemia Protocol Donepezil HCl 5 mg 05/27/23 12:00 05/28/23 13:04 Donepezil 5 Mg Tab PO 5 mg DAILY@1200 [facility] Administration Ergocalciferol 1,250 mcg 06/03/23 09:00 Ergocalciferol 1,250 Mcg (50,000 Iu) Capsule PO Q7D [facility] Ferrous Sulfate 325 mg 05/27/23 17:00 05/27/23 17:03 Ferrous Sulfate 325 Mg Tab PO 325 mg DAILY@1700 [facility] Administration Sodium Chloride 1,000 mls @ 75 mls/hr 05/27/23 10:30 05/28/23 01:56 Saline 0.9% IV Not Given .[id number] [facility] Insulin Aspart 0 unit 05/27/23 12:30 05/28/23 12:14 Insulin Aspart (Novolog) 100 Unit/Ml Vial SQ Not Given ACHS [facility] Protocol Meclizine HCl 25 mg 05/27/23 17:00 05/27/23 17:03 Meclizine 25 Mg Tab PO 25 mg DAILY@1700 [facility] Administration Memantine 10 mg 05/27/23 10:30 05/28/23 08:15 Memantine 10 Mg Tab PO 10 mg DAILY [facility] Administration Naloxone HCl 0.2 mg 05/27/23 04:42 Naloxone 0.4 Mg/Ml 1 Ml Vial IV Q2M PRN Opioid Reversal Ondansetron HCl 4 mg 05/27/23 04:42 Ondansetron 4 Mg/2 Ml Vial IVP Q8HR PRN Nausea And Vomiting Sodium Bicarbonate 650 mg 05/27/23 12:30 05/28/23 08:15 Sodium Bicarbonate Tab 650 Mg Tab PO 650 mg TID [facility] Administration Intake and Output 05/28/23 05/28/23 05/28/23 06:59 14:59 22:59 Other: Voiding Method Toilet Diaper Incontinent # Voids 2 # Bowel Movements 1 05/28/23 07:02 05/28/23 07:02
[2023-05-28] MEDS ORDERED: APIXABAN 2.5 MG TABLET PO SCH (21:00)
[2023-05-29] MEDS ORDERED: AMIODARONE 100 MG TAB PO SCH (09:00)
[2023-05-29] MEDS ORDERED: amLODIPine 5 MG TAB PO SCH (09:00)
--- NOTE | 2023-05-29 17:15 | P.DS ---
Providers Date of admission: 05/27/23 04:43 Attending physician: Ja Stevenson Consults: 05/27/23 10:12 Consult Physician Routine Consulting Provider: Nash Gomez Consult Reason/Comments: Acute renal failure Do you want consulting provider notified?: Yes 05/27/23 18:45 Consult Physician Routine Consulting Provider: Lance Galarza Consult Reason/Comments: bradycardia Do you want consulting provider notified?: Yes Primary care physician: Ja Stevenson Hospital Course: Final Diagnosis Increased weakness and diarrhea Hx of C.Dif Colitis Acute metabolic encephalopathy, mild, secondary to the above Acute renal failure, prerenal, secondary to diarrhea, medication induced patient was on an ARB which is discontinued at this time. Hyperkalemia secondary to the above resolved. Possible chronic renal failure stage III, though patient denies prior history of. Metabolic acidosis secondary to the above, bicarb 16 improved. Diabetes mellitus II, hypoglycemic on admission normalized. Hypertension Hyperlipidemia Chronic CHF, diastolic dysfunction Chronic proximal atrial fibrillation, not on anticoagulation Mild aortic stenosis Pulmonary hypertension Peripheral vascular disease Gait dysfunction, uses a cane or walker History of nicotine dependence Mild underlying dementia Multilevel severe spinal canal stenosis with severe degenerative changes in the lumbar spine Full Code Discharge disposition Patient is stable for discharge home she reports no further episodes of diarrhea and has been unable to give a stool sample. She is also denying any dysuria or burning discomfort or urgency there is no fever or chills and her white count is normal. Patient feels that she is stable for discharge home and currently not recommended for any antibiotics on discharge. We are recommending to her los candy be held at this time as she presented with acute kidney injury and her creatinine is down to 1.4 on discharge. Additional potassium is 5.5. Patient's blood glucose is also normalized it is now 130s. Amiodarone has been decreased 100 mg daily. Glipizide has been also discontinued. Patient was recommended follow-ups are with Dr. Stevenson in 1-2 days who is her primary care provider as well as Dr. Gomez was a phthalic acid purifier in 1 week's time. Patient is given a prescription for repeat BMP in 2-3 days. Patient to follow up with Dr Grande on discharge who is her known transit bus operator Recommended for patient to begin eliquis 2.5 mg BID and stop the plavix Amiodarone has been decreased to 100 mg daily. Cardiology recommending a follow up echocardiogram which patient was adament on discharge vs. leaving AMA and discussed to see her known transit bus operator Dr. Grande in the office on discharge. Patient had refused the echocardiogram. Hospital course This is a pleasant 87-year-old female with medical history of diabetes mellitus type 2, hypertension, hyperlipidemia, heart failure, paroxysmal atrial fibrillation currently not on any anticoagulation, mild aortic stenosis, pulmonary hypertension, peripheral vascular disease, gait dysfunction with the use of a cane, nicotine dependence and mild underlying dementia. Patient follows with Dr. Stevenson in the office. She presents to the hospital with a history of increased weakness and diarrhea with mild acute confusion. There is concern for C. diff as patient does have a history of C. diff colitis. She did present with an acute kidney injury of creatinine up to 2.3 on admission she does have a possible history of chronic kidney disease and is also maintained on losartan outpatient. She was admitted to the hospital under medicine with a consult placed to nephrology. Cardiology was also consulted. Patient had an abdominal pelvis CT completed which reveals no acute abnormality within the abdomen or pelvis there is severe degenerative changes in the lumbar spine with multilevel severe spinal canal stenosis. Cardiology evaluation recommending patient to begin eliquis 2.5 mg BID and stop the plavix, Amiodarone has been decreased to 100 mg daily. Cardiology was placed on consult for sinus tachycardia patient has remained in the 50s and 60s at this time. Cardiology recommending a follow up echocardiogram which patient was adament on discharge vs. leaving AMA and discussed to see her known transit bus operator Dr. Grande in the office on discharge. As patient's diarrhea has resolved and she is not having any urinary symptoms are overwhelming signs of infection she is not having any fever no cough or shortness of breath no chest pain or abdominal pain or nausea vomiting or diarrhea she is not having any dysuria urgency or burning will discharge patient home to follow up in the office with her primary care provider Dr. Stevenson, nephrology Dr. Gomez and also with her known transit bus operator Dr. Grande. We are recommending to repeat labs in 2-3 days. Her lungs are clear, S1-S2 is auscultated her heart rate is in the 50s to 60s, her abdomen is soft and nontender. Neurological exam is stable she is alert 3 and at baseline. Discharge instructions were discussed with patient's daughter Tiffany over the phone with no further questions. Medication reconciliation for list of current medication. Thank you for allowing us to participate in the care of this patient. The impression and plan of care has been dictated by Priya Aguilera, Nurse Practitioner as directed. Dr. Walter MD I have performed a history and physical examination and medical decision making of this patient, discussed the same with the dictator, and agree with the dictators assessment and plan as written, documented as a scribe. Based on total visit time, I have performed more than 50% of this visit. Patient Condition at Discharge: Fair Plan - Discharge Summary New Discharge Prescriptions: New Amiodarone [Cordarone] 100 mg PO DAILY #30 tab Apixaban [Eliquis] 2.5 mg PO BID #60 tab Continue Ergocalciferol (Vitamin D2) [Drisdol (50,000 Iu)] 1,250 mcg PO Q7D Memantine [Namenda] 10 mg PO DAILY Lovastatin [Mevacor] 20 mg PO HS Ferrous Sulfate [Iron (65 MG Elemental)] 325 mg PO DAILY@1700 Donepezil [Aricept] 5 mg PO DAILY@1200 Meclizine [Antivert] 25 mg PO DAILY@1700 Discontinued Clopidogrel [Plavix] 75 mg PO DAILY@1200 glipiZIDE [Glucotrol] 5 mg PO DAILY Losartan [Cozaar] 25 mg PO HS Amiodarone [Cordarone] 200 mg PO DAILY Discharge Medication List Lovastatin [Mevacor] 20 mg PO HS 05/01/21 [History] Memantine [Namenda] 10 mg PO DAILY 05/01/21 [History] Donepezil [Aricept] 5 mg PO DAILY@1200 10/05/22 [History] Ferrous Sulfate [Iron (65 MG Elemental)] 325 mg PO DAILY@1700 10/05/22 [History] Meclizine [Antivert] 25 mg PO DAILY@1700 10/17/22 [History] Ergocalciferol (Vitamin D2) [Drisdol (50,000 Iu)] 1,250 mcg PO Q7D 05/26/23 [History] Amiodarone [Cordarone] 100 mg PO DAILY #30 tab 05/28/23 [Rx] Apixaban [Eliquis] 2.5 mg PO BID #60 tab 05/29/23 [Rx] Follow up Appointment(s)/Referral(s): Ja Stevenson DO [Primary Care Provider] - 1-2 days Nash Gomez DO [STAFF PHYSICIAN] - 1 Week Ambulatory/Diagnostic Orders: Basic Metabolic Panel [LAB.AMB] Time Frame: 3 Days, Location: None Selected Patient Instructions/Handouts: Amiodarone (By mouth), Hydralazine (By mouth), Acute Kidney Injury (DC), Basic Metabolic Panel (GEN) Activity/Diet/Wound Care/Special Instructions: Follow up with nephrology in 1 to 2 days Repeat labs in 2 to 3 days Discharge Disposition: HOME SELF-CARE
[2023-06-03] MEDS ORDERED: ERGOCALCIFEROL 1,250 MCG (50,000 IU) CAPSULE PO SCH (09:00)
== END 2023-05-28 17:41 | disposition home or self-care (01) | DRG 682 ==
LOC: EC 20:40 → 5NMEDONC 05-27 04:43
PROVIDERS: ADMIT Family Medicine; ATTEND Family Medicine
DX: N17.9 Acute kidney failure, unspecified (principal); G93.41 Metabolic encephalopathy; N39.0 Urinary tract infection, site not specified; E87.20 Acidosis, unspecified; I13.0 Hypertensive heart and chronic kidney disease with heart failure and stage 1 through stage 4 chronic kidney disease, or unspecified chronic kidney disease; I50.32 Chronic diastolic (congestive) heart failure; I27.20 Pulmonary hypertension, unspecified; E11.649 Type 2 diabetes mellitus with hypoglycemia without coma; E11.22 Type 2 diabetes mellitus with diabetic chronic kidney disease; E11.51 Type 2 diabetes mellitus with diabetic peripheral angiopathy without gangrene; I48.0 Paroxysmal atrial fibrillation; E86.1 Hypovolemia; F03.A0 Unspecified dementia, mild, without behavioral disturbance, psychotic disturbance, mood disturbance, and anxiety; N18.30 Chronic kidney disease, stage 3 unspecified; I35.0 Nonrheumatic aortic (valve) stenosis; I44.7 Left bundle-branch block, unspecified; R00.1 Bradycardia, unspecified; E87.5 Hyperkalemia; R19.7 Diarrhea, unspecified; R26.9 Unspecified abnormalities of gait and mobility; M48.061 Spinal stenosis, lumbar region without neurogenic claudication; M47.816 Spondylosis without myelopathy or radiculopathy, lumbar region; E78.5 Hyperlipidemia, unspecified; Z88.2 Allergy status to sulfonamides; Z79.899 Other long term (current) drug therapy; Z87.891 Personal history of nicotine dependence; Z87.440 Personal history of urinary (tract) infections; Z79.84 Long term (current) use of oral hypoglycemic drugs; Z79.02 Long term (current) use of antithrombotics/antiplatelets; Z86.19 Personal history of other infectious and parasitic diseases; Z79.01 Long term (current) use of anticoagulants; Z90.2 Acquired absence of lung [part of]
CPT/HCPCS: 36415; 71045; 74176; 80048; 80053; 81001; 81003; 83036; 83605; 83735; 83880; 84100; 84443; 84484; 85025; 85027; 85610; 85730; 93005; 94760; 96361; 96365; 99285

== ENCOUNTER 2023-11-25 18:21 | Inpatient (IN) | payer MEDICARE ==
--- NOTE | 2023-11-25 18:36 | ED ---
Recheck HPI - General Chief Complaint: GI Bleed Stated Complaint: GI Bleed Time Seen by Provider: 11/25/23 18:34 Source: patient, EMS, RN notes reviewed, old records reviewed Mode of arrival: EMS Limitations: no limitations - History of Present Illness Initial Comments: This is an 88-year-old female to the ER for evaluation today. Patient was sent in by his primary care for evaluation regarding GI bleed. Patient has no complaints of GI bleeding here in the emergency department but was seen by her primary care for lower extremity edema, patient has been on Eliquis in the past. Patient has a history of atrial fibrillation does suffer from significant dementia MD Complaint: abnormal lab (Low hemoglobin) -: days(s) Returns Today for: Called Because of Abnormal Lab/Test Symptoms Since Prior Visit: no new symptoms Context: called for abnormal lab result Associated Symptoms: none - Related Data Home Medications Medication Instructions Recorded Confirmed Lovastatin [Mevacor] 20 mg PO HS 05/01/21 11/25/23 Memantine [Namenda] 10 mg PO BID 05/01/21 11/25/23 Donepezil [Aricept] 5 mg PO DAILY 10/05/22 11/25/23 Ferrous Sulfate [Iron (65 MG 325 mg PO DAILY 10/05/22 11/25/23 Elemental)] Meclizine [Antivert] 25 mg PO Q8H PRN 10/17/22 11/25/23 Amiodarone [Cordarone] 200 mg PO DAILY 11/25/23 11/25/23 Furosemide [Lasix] 20 mg PO DAILY 11/25/23 11/25/23 glipiZIDE [Glucotrol] 10 mg PO BID 11/25/23 11/25/23 Previous Rx's Medication Instructions Recorded Apixaban [Eliquis] 2.5 mg PO BID #60 tab 11/29/23 Pantoprazole Sodium [Protonix] 40 mg PO DAILY #30 tab 11/29/23 Allergies Allergy/AdvReac Type Severity Reaction Status Date / Time Sulfa (Sulfonamide Allergy Rash/Hives Verified 11/25/23 20:41 Antibiotics) Review of Systems ROS Statement: Those systems with pertinent positive or pertinent negative responses have been documented in the HPI. ROS Other: All systems not noted in ROS Statement are negative. Past Medical History Past Medical History: Atrial Fibrillation, Heart Failure, Dementia, Diabetes Mellitus, Hypertension, Pneumonia Additional Past Medical History / Comment(s): TB in 1955, heart murmur History of Any Multi-Drug Resistant Organisms: C-DIFF Date of last positivie culture/infection: 10/17/22 MDRO Source:: stool Past Surgical History: Hysterectomy Additional Past Surgical History / Comment(s): partial left lung removal at [facility] Past Anesthesia/Blood Transfusion Reactions: No Reported Reaction Past Psychological History: No Psychological Hx Reported Smoking Status: Never smoker Past Alcohol Use History: Rare Past Drug Use History: None Reported - Past Family History Mother Family Medical History: Cancer Additional Family Medical History / Comment(s): Unknown type of cancer. Father Family Medical History: Myocardial Infarction ([place]) General Exam Limitations: no limitations General appearance: alert, in no apparent distress, anxious Head exam: Present: atraumatic, normocephalic, normal inspection Eye exam: Present: normal appearance, PERRL, EOMI. Absent: scleral icterus, conjunctival injection, periorbital swelling ENT exam: Present: normal exam, mucous membranes moist Neck exam: Present: normal inspection. Absent: tenderness, meningismus, lymphadenopathy Respiratory exam: Present: normal lung sounds bilaterally. Absent: respiratory distress, wheezes, rales, rhonchi, stridor Cardiovascular Exam: Present: regular rate, normal rhythm, normal heart sounds. Absent: systolic murmur, diastolic murmur, rubs, gallop, clicks GI/Abdominal exam: Present: soft, normal bowel sounds. Absent: distended, tenderness, guarding, rebound, rigid Extremities exam: Present: normal inspection, full ROM, normal capillary refill. Absent: tenderness, pedal edema, joint swelling, calf tenderness Back exam: Present: normal inspection Neurological exam: Present: alert, oriented X3, CN II-XII intact Psychiatric exam: Present: normal affect, normal mood Skin exam: Present: warm, dry, intact, normal color. Absent: rash Course Vital Signs 11/25/23 11/25/23 11/25/23 18:31 21:33 23:00 Temperature 98.1 F Pulse Rate 74 78 72 Respiratory 18 18 18 Rate Blood Pressure 133/58 111/46 102/41 O2 Sat by Pulse 95 94 L 93 L Oximetry 11/25/23 11/26/23 11/26/23 23:58 00:08 00:28 Temperature 97.6 F 97.8 F 97.8 F Pulse Rate 75 76 75 Respiratory 16 16 16 Rate Blood Pressure 105/43 105/48 120/49 O2 Sat by Pulse 96 98 99 Oximetry 11/26/23 11/26/23 02:28 02:35 Temperature Pulse Rate 75 74 Respiratory 18 18 Rate Blood Pressure 153/69 146/58 O2 Sat by Pulse 100 99 Oximetry - Reevaluation(s) Reevaluation #1: 11/25/23 20:58 Medical record is reviewed Reevaluation #2: 11/25/23 20:58 Patient does not feel near syncopal or presyncopal here in the emergency department Reevaluation #3: 11/25/23 20:58 Patient informed of results and questions answered Spoke with family who do not want patient transferred Reevaluation #4: 11/25/23 20:58 Was pt. sent in by a medical professional or institution (, MARIE, POWER AND RECOVERY SUPERINTENDENT, urgent care, hospital, or skilled nursing...) When possible be specific @ -no Did you speak to anyone other than the patient for history (EMS, parent, family, police, friend...)? What history was obtained from this source @ -no Did you review nursing and triage notes (agree or disagree)? Why? @ -agree Are old charts reviewed (outside hosp., previous admission, EMS record, old EKG, old radiological studies, urgent care reports/EKG's, skilled nursing records)? Report findings @ -yes Differential Diagnosis (chest pain, altered mental status, abdominal pain women, abdominal pain men, vaginal bleeding, weakness, fever, dyspnea, syncope, headache, dizziness, GI bleed, back pain, seizure, CVA, palpatations, mental health, musculoskeletal)? @ -prior EKG interpreted by me (3pts min.). @ -no X-rays interpreted by me (1pt min.). @ -no CT interpreted by me (1pt min.). @ -no U/S interpreted by me (1pt. min.). @ -no What testing was considered but not performed or refused? (CT, X-rays, U/S, labs)? Why? @ -none What meds were considered but not given or refused? Why? @ -none Did you discuss the management of the patient with other professionals (professionals i.e. Dr., PA, POWER AND RECOVERY SUPERINTENDENT, lab, RT, psych nurse, adoption social worker, parcel post officer, teacher, title officer, leather case finisher)? Give summary @ -no Was smoking cessation discussed for >3mins.? @ -no Was critical care preformed (if so, how long)? @ -yes31 Were there social determinants of health that impacted care today? How? (Homelessness, low income, unemployed, alcoholism, drug addiction, transportation, low edu. Level, literacy, decrease access to med. care, custodial, rehab)? @ -none Was there de-escalation of care discussed even if they declined (Discuss DNR or withdrawal of care, Hospice)? DNR status @ -no What co-morbidities impacted this encounter? (DM, HTN, Smoking, COPD, CAD, Cancer, CVA, ARF, Chemo, Hep., AIDS, mental health diagnosis, sleep apnea, morbid obesity)? @ -none Was patient admitted / discharged? Hospital course, mention meds given and route, prescriptions, significant lab abnormalities, going to OR and other pertinent info. @ - 88 female to ER for evaluation of GI bleed on Eliquis with anemia. No syncope or presyncopal symptoms. Patient will be admitted for reversing of anticoagulation, transfusion Admitted Undiagnosed new problem with uncertain prognosis? @ -no Drug Therapy requiring intensive monitoring for toxicity (Heparin, Nitro, Insu swapnil, Cardizem)? @ -no Were any procedures done? @ -no Diagnosis/symptom? @ -GI bleed and anemia Acute, or Chronic, or Acute on Chronic? @ -Acute Uncomplicated (without systemic symptoms) or Complicated (systemic symptoms)? @ -Complicated Side effects of treatment? @ -no Exacerbation, Progression, or Severe Exacerbation? @ -exacerbation Poses a threat to life or bodily function? How? (Chest pain, [place], [place], pneumonia, PE, COPD, DKA, ARF, appy, cholecystitis, CVA, Diverticulitis, Homicidal, S uicidal, threat to staff... and all critical care pts) @ -yes significant GI bleed - Consultations Consultation #1: Spoke with [facility], Dr. Malone who initially does not want to accept patient Did we speak with Dr. Malone regarding family's concerns and he is okay with observation Medical Decision Making - Medical Decision Making 88 female to ER for evaluation of GI bleed on Eliquis with anemia. No syncope or presyncopal symptoms. Patient will be admitted for reversing of anticoagulation, transfusion - Lab Data Result diagrams: 11/29/23 09:09 11/29/23 12:06 Lab Results 11/25/23 11/25/23 11/25/23 Range/Units 18:30 18:44 18:44 WBC 8.0 (3.8-10.6) k/uL RBC 1.47 L (3.80-5.40) m/uL Hgb 5.1 L* (11.4-16.0) gm/dL Hct 15.9 L* (34.0-46.0) % MCV 107.8 H (80.0-100.0) fL MCH 34.8 (25.0-35.0) pg MCHC 32.3 (31.0-37.0) g/dL RDW 17.0 H (11.5-15.5) % Plt Count 264 (150-450) k/uL MPV 9.0 Neutrophils % 78 % Lymphocytes % 14 % Monocytes % 5 % Eosinophils % 1 % Basophils % 1 % Neutrophils # 6.2 (1.3-7.7) k/uL Lymphocytes # 1.1 (1.0-4.8) k/uL Monocytes # 0.4 (0-1.0) k/uL Eosinophils # 0.1 (0-0.7) k/uL Basophils # 0.0 (0-0.2) k/uL Manual Slide Review Performed Polychromasia Present Hypochromasia Marked Hypochromasia (manual) Present Poikilocytosis Slight Anisocytosis Slight Anisocytosis (manual) Present Macrocytosis Marked A Target Cells Present Tear Drop Cells Present PT 10.5 (10.0-12.5) sec INR 1.0 (<1.2) APTT 19.8 L (22.0-30.0) sec Sodium (137-145) mmol/L Potassium (3.5-5.1) mmol/L Chloride (98-107) mmol/L Carbon Dioxide (22-30) mmol/L Anion Gap mmol/L BUN (7-17) mg/dL Creatinine (0.52-1.04) mg/dL Est GFR (CKD-EPI)AfAm (>60 ml/min/1.73 sqM) Est GFR (CKD-EPI)NonAf (>60 ml/min/1.73 sqM) Glucose (74-99) mg/dL Calcium (8.4-10.2) mg/dL Magnesium (1.6-2.3) mg/dL Total Bilirubin (0.2-1.3) mg/dL AST (14-36) U/L ALT (4-34) U/L Alkaline Phosphatase (38-126) U/L Troponin I (0.000-0.034) ng/mL Total Protein (6.3-8.2) g/dL Albumin (3.5-5.0) g/dL Blood Type O Positive Blood Type Recheck O Pos Bld Type Recheck Status No Antibody Screen NEGATIVE Crossmatch See Detail Spec Expiration Date 11/28/2023 - 232911/25/23 11/25/23 Range/Units 18:44 18:44 WBC (3.8-10.6) k/uL RBC (3.80-5.40) m/uL Hgb (11.4-16.0) gm/dL Hct (34.0-46.0) % MCV (80.0-100.0) fL MCH (25.0-35.0) pg MCHC (31.0-37.0) g/dL RDW (11.5-15.5) % Plt Count (150-450) k/uL MPV Neutrophils % % Lymphocytes % % Monocytes % % Eosinophils % % Basophils % % Neutrophils # (1.3-7.7) k/uL Lymphocytes # (1.0-4.8) k/uL Monocytes # (0-1.0) k/uL Eosinophils # (0-0.7) k/uL Basophils # (0-0.2) k/uL Manual Slide Review Polychromasia Hypochromasia Hypochromasia (manual) Poikilocytosis Anisocytosis Anisocytosis (manual) Macrocytosis Target Cells Tear Drop Cells PT (10.0-12.5) sec INR (<1.2) APTT (22.0-30.0) sec Sodium 135 L (137-145) mmol/L Potassium 5.4 H (3.5-5.1) mmol/L Chloride 110 H (98-107) mmol/L Carbon Dioxide 17 L (22-30) mmol/L Anion Gap 8 mmol/L BUN 79 H (7-17) mg/dL Creatinine 1.63 H (0.52-1.04) mg/dL Est GFR (CKD-EPI)AfAm 32 (>60 ml/min/1.73 sqM) Est GFR (CKD-EPI)NonAf 28 (>60 ml/min/1.73 sqM) Glucose 286 H (74-99) mg/dL Calcium 9.0 (8.4-10.2) mg/dL Magnesium 1.9 (1.6-2.3) mg/dL Total Bilirubin 0.4 (0.2-1.3) mg/dL AST 17 (14-36) U/L ALT 13 (4-34) U/L Alkaline Phosphatase 51 (38-126) U/L Troponin I 0.193 H* (0.000-0.034) ng/mL Total Protein 5.7 L (6.3-8.2) g/dL Albumin 3.7 (3.5-5.0) g/dL Blood Type Blood Type Recheck Bld Type Recheck Status Antibody Screen Crossmatch Spec Expiration Date Critical Care Time Critical Care Time: Yes Total Critical Care Time: 31 Disposition Clinical Impression: GI bleed, Dehydration, CKD (chronic kidney disease), Acute blood loss anemia Disposition: ADMITTED IP TO THIS [facility] Condition: Stable Is patient prescribed a controlled substance at d/c from ED?: No Time of Disposition: 21:00
[2023-11-25 18:53] LABS: Anisocytosis Slight; Basophils % (A) 1 %; Eosinophils # (A) 0.1 k/uL (0-0.7); Eosinophils % (A) 1 %; Hypochromasia Marked; Lymphocytes # (A) 1.1 k/uL (1.0-4.8); Lymphocytes % (A) 14 %; MCH 34.8 pg (25.0-35.0); MCHC 32.3 g/dL (31.0-37.0); MCV 107.8 fL (80.0-100.0); Macrocytosis Marked; Monocytes # (A) 0.4 k/uL (0-1.0); Monocytes % (A) 5 %; Neutrophils # (A) 6.2 k/uL (1.3-7.7); Neutrophils % (A) 78 %; Platelet Count 264 k/uL (150-450); Poikilocytosis Slight; RBC 1.47 m/uL (3.80-5.40)
[2023-11-25 19:06] LABS: ALT 13 U/L (4-34); AST 17 U/L (14-36); African American GFR (CKD) 32 (>60 ml/min/1.73 sqM); Albumin 3.7 g/dL (3.5-5.0); Alkaline Phosphatase 51 U/L (38-126); Anion Gap 8 mmol/L; Blood Urea Nitrogen 79 mg/dL (7-17); Carbon Dioxide 17 mmol/L (22-30); Chloride 110 mmol/L (98-107); Glucose 286 mg/dL (74-99); Magnesium 1.9 mg/dL (1.6-2.3); Non-African American GFR(CKD) 28 (>60 ml/min/1.73 sqM); Potassium 5.4 mmol/L (3.5-5.1); Sodium 135 mmol/L (137-145); Total Bilirubin 0.4 mg/dL (0.2-1.3); Total Protein 5.7 g/dL (6.3-8.2)
[2023-11-25 19:15] LABS: HCT 15.9 % (34.0-46.0); HGB 5.1 gm/dL (11.4-16.0)
[2023-11-25] MEDS: SODIUM CHLORIDE 0.9% 1,000 ML IV STA (19:15)
[2023-11-25 19:36] LABS: Prothrombin Time 10.5 sec (10.0-12.5)
[2023-11-25 19:37] LABS: Anisocytosis (M) Present; Hypochromasia (M) Present; Polychromasia Present; Target Cells Present; Tear Drop Cells Present
[2023-11-25 19:40] LABS: Partial Thromboplastin Time 19.8 sec (22.0-30.0)
[2023-11-25] MEDS ORDERED: PHYTONADIONE 5 MG in SODIUM CHLORIDE 0.9% 50 ML IVPB STA (20:53)
[2023-11-25] MEDS ORDERED: Kcentra PER PHARMACY 1 EACH MISC MISCELLANE PRN (20:53)
[2023-11-25] MEDS ORDERED: MORPHINE SULFATE 4 MG/ML SYRINGE IV PRN (21:09)
[2023-11-25] MEDS ORDERED: NALOXONE 0.4 MG/ML 1 ML VIAL IV PRN (21:09)
[2023-11-25] MEDS ORDERED: ONDANSETRON 4 MG/2 ML VIAL IVP PRN (21:09)
[2023-11-25] MEDS: PANTOPRAZOLE 40 MG/10 ML VIAL IV SCH (21:23)
[2023-11-25] MEDS: SODIUM CHLORIDE 0.9% 1,000 ML IV SCH (21:23)
[2023-11-25] MEDS: HUMAN PROTHROMBIN COMPLX IV ONE (22:00)
[2023-11-25] MEDS ORDERED: HUMAN PROTHROMBIN COMPLX 500 UNIT/16 ML VIAL IV ONE (22:01)
[2023-11-26 06:13] LABS: Glucose,Whole Blood 360 mg/dL (70-110)
[2023-11-26 09:38] LABS: Anisocytosis Slight; Basophils % (A) 0 %; Eosinophils % (A) 0 %; Hypochromasia Marked; Lymphocytes # (A) 0.8 k/uL (1.0-4.8); Lymphocytes % (A) 10 %; MCH 32.6 pg (25.0-35.0); MCHC 31.4 g/dL (31.0-37.0); MCV 103.6 fL (80.0-100.0); Macrocytosis Moderate; Monocytes # (A) 0.4 k/uL (0-1.0); Monocytes % (A) 6 %; Neutrophils # (A) 6.1 k/uL (1.3-7.7); Neutrophils % (A) 82 %; Platelet Count 226 k/uL (150-450); Poikilocytosis Slight; RBC 1.92 m/uL (3.80-5.40); RDW 18.6 % (11.5-15.5); WBC 7.4 k/uL (3.8-10.6)
[2023-11-26 09:44] LABS: ALT 14 U/L (4-34); AST 16 U/L (14-36); African American GFR (CKD) 31 (>60 ml/min/1.73 sqM); Albumin 3.3 g/dL (3.5-5.0); Alkaline Phosphatase 53 U/L (38-126); Anion Gap 8 mmol/L; Blood Urea Nitrogen 69 mg/dL (7-17); Calcium 8.6 mg/dL (8.4-10.2); Carbon Dioxide 17 mmol/L (22-30); Chloride 113 mmol/L (98-107); Glucose 281 mg/dL (74-99); HCT 19.9 % (34.0-46.0); HGB 6.3 gm/dL (11.4-16.0); Magnesium 1.9 mg/dL (1.6-2.3); Non-African American GFR(CKD) 27 (>60 ml/min/1.73 sqM); Potassium 5.1 mmol/L (3.5-5.1); Sodium 138 mmol/L (137-145); Total Bilirubin 0.5 mg/dL (0.2-1.3); Total Protein 5.3 g/dL (6.3-8.2)
[2023-11-26] MEDS ORDERED: MECLIZINE 25 MG TAB PO PRN (09:55)
[2023-11-26 11:25] LABS: INR 0.9 (<1.2); Prothrombin Time 10.4 sec (10.0-12.5)
--- NOTE | 2023-11-26 11:28 | P.CRDCN ---
History of Present Illness History of present illness: HISTORY OF PRESENT ILLNESS: This is a 88-year-old female with a past medical history significant for paroxysmal atrial fibrillation, aortic stenosis, congestive heart failure, hypertension, hyperlipidemia, diabetes, and peripheral arterial disease. Patient follows in the office with Dr. Grande. We have been asked to see the patient in consultation for elevated troponins. Patient examined at the bedside. Patient initially presented to the hospital with a chief complaint of fatigue and generally feeling unwell. The patient was found to be anemic with a hemoglobin of 5.1. She did receive RBC transfusion. Repeat hemoglobin is 6.3. She denies any chest pain or pressure. Blood pressure stable with a recent reading of 103/56. DIAGNOSTICS: - EKG reveals sinus mechanism with ST depression in lead I and V4V6 with T wave inversions in aVL - Laboratory data: Hemoglobin 5.1. Repeat 6.3. Sodium 135. Potassium 5.4. BUN 79. Creatinine 1.63. Troponin 0.193. - Current home cardiac medications include lovastatin 20 mg at night, hydralazine 25 mg 4 times a day, losartan 25 mg daily, Eliquis 2.5 mg twice a day, amiodarone 200 mg daily, Lasix 20 mg daily - Most recent echocardiogram obtained in July 2021 revealed ejection fraction 55 to 60%, mild aortic stenosis, mild mitral regurgitation, and mild to moderate tricuspid regurgitation with severe pulmonary hypertension REVIEW OF SYSTEMS: At the time of my exam: CONSTITUTIONAL: Denies fever or chills. HEENT: Denies blurred vision, vision changes, or eye pain. Denies hemoptysis CARDIOVASCULAR: Denies chest pain. Denies orthopnea. Denies PND. Denies palpitations RESPIRATORY: Denies shortness of breath. GASTROINTESTINAL: Denies abdominal pain. Denies nausea or vomiting. HEMATOLOGIC: Denies bleeding disorders. GENITOURINARY: Denies any blood in urine. SKIN: Denies pruitis. Denies rash. PHYSICAL EXAM: VITAL SIGNS: Reviewed. GENERAL: Well-developed in no acute distress. HEENT: Head is normocephalic. Pupils are equal, round. Sclerae anicteric. Mucous membranes of the mouth are moist. Neck supple. No JVD or thyromegaly LUNGS: Respirations even and unlabored. Lungs essentially clear to auscultation bilaterally. HEART: Regular rate and rhythm. S1 and S2 heard. Systolic murmur noted ABDOMEN: Soft. Nondistended. Nontender. EXTREMITIES: Normal range of motion. No clubbing or cyanosis. Peripheral pulses intact. No lower extremity edema NEUROLOGIC: Awake and alert. Oriented x 3. ASSESSMENT: Generalized weakness Acute anemia Elevated troponin, secondary to above, no evidence of acute coronary syndrome, type II [place] Paroxysmal atrial fibrillation, anticoagulated with Eliquis on an outpatient basis Congestive heart failure with preserved EF, currently euvolemic Mild aortic stenosis Hypertension Hyperlipidemia Diabetes History of peripheral arterial disease PLAN: An acute coronary event has been ruled out Obtain 2D echo to assess LV function and severity of aortic stenosis Hold anticoagulation due to acute anemia General surgery has been consulted for evaluation. Await recommendations Hold antihypertensive medications as patient's blood pressures are on the lower side Further recommendations pending patient course Nurse practitioner note has been reviewed by physician. Signing provider agrees with the documented findings, assessment, and plan of care documented by LIBRARY MANAGER as a scribe. Past Medical History Past Medical History: Atrial Fibrillation, Heart Failure, Dementia, Diabetes Mellitus, Hypertension, Pneumonia Additional Past Medical History / Comment(s): TB in 1955, heart murmur History of Any Multi-Drug Resistant Organisms: C-DIFF Date of last positivie culture/infection: 10/17/22 MDRO Source:: stool Past Surgical History: Hysterectomy Additional Past Surgical History / Comment(s): partial left lung removal at [facility] Past Anesthesia/Blood Transfusion Reactions: No Reported Reaction Past Psychological History: No Psychological Hx Reported Additional Psychological History / Comment(s): Pt resides alone. She uses a cane or walker. She has a glucometer. She no longer drives, her friend takes her to [employer]. She receives M[facility]. Smoking Status: Former smoker Past Alcohol Use History: Rare Additional Past Alcohol Use History / Comment(s): Pt started smoking as a teen and quit in 1973. Past Drug Use History: None Reported - Past Family History Mother Family Medical History: Cancer Additional Family Medical History / Comment(s): Unknown type of cancer. Father Family Medical History: Myocardial Infarction ([place]) Medications and Allergies Home Medications Medication Instructions Recorded Confirmed Type Lovastatin [Mevacor] 20 mg PO HS 05/01/21 11/25/23 History Memantine [Namenda] 10 mg PO BID 05/01/21 11/25/23 History Donepezil [Aricept] 5 mg PO DAILY 12/06/22 01/26/24 History Ferrous Sulfate [Iron (65 MG 325 mg PO DAILY 10/05/22 11/25/23 History Elemental)] Meclizine [Antivert] 25 mg PO Q8H PRN 10/17/22 11/25/23 History Apixaban [Eliquis] 2.5 mg PO BID #60 tab 05/29/23 11/25/23 Rx Amiodarone [Cordarone] 200 mg PO DAILY 11/25/23 11/25/23 History Furosemide [Lasix] 20 mg PO DAILY 11/25/23 11/25/23 History Losartan [Cozaar] 25 mg PO DAILY 11/25/23 11/25/23 History glipiZIDE [Glucotrol] 10 mg PO BID 11/25/23 11/25/23 History hydrALAZINE HCL [Apresoline] 25 mg PO QID 11/25/23 11/25/23 History Allergies Allergy/AdvReac Type Severity Reaction Status Date / Time Sulfa (Sulfonamide Allergy Rash/Hives Verified 11/25/23 20:41 Antibiotics) Physical Exam Vitals: Vital Signs Temp Pulse Pulse Resp BP BP Pulse Ox 11/26/23 08:30 97.7 F 70 17 103/56 94 L 11/26/23 04:53 80 18 115/67 92 L 11/26/23 02:54 97.6 F 78 20 135/70 91 L 11/26/23 02:35 74 18 146/58 99 11/26/23 02:28 75 18 153/69 100 11/26/23 00:28 97.8 F 75 16 120/49 99 11/26/23 00:08 97.8 F 76 16 105/48 98 11/25/23 23:58 97.6 F 75 16 105/43 96 11/25/23 23:00 72 18 102/41 93 L 11/25/23 21:33 78 18 111/46 94 L 11/25/23 18:31 98.1 F 74 18 133/58 95 Intake and Output 11/25/23 11/26/23 11/26/23 22:59 06:59 14:59 Intake Total 279 Balance 279 Intake: Blood Product 279 Rc Pheresis As-3 Unit 279 [id number] Other: Voiding Method Toilet Toilet # Voids 1 Weight 84.368 kg 83 kg Results 11/26/23 08:36 11/26/23 08:36 Cardiac Enzymes 11/25/23 11/25/23 11/26/23 Range/Units 18:44 18:44 08:36 AST 17 16 (14-36) U/L Troponin I 0.193 H* (0.000-0.034) ng/mL Coagulation 11/25/23 Range/Units 18:44 PT 10.5 (10.0-12.5) sec APTT 19.8 L (22.0-30.0) sec CBC 11/25/23 11/26/23 Range/Units 18:44 08:36 WBC 8.0 7.4 (3.8-10.6) k/uL RBC 1.47 L 1.92 L (3.80-5.40) m/uL Hgb 5.1 L* 6.3 L* (11.4-16.0) gm/dL Hct 15.9 L* 19.9 L* (34.0-46.0) % Plt Count 264 226 (150-450) k/uL Comprehensive Metabolic Panel 11/25/23 11/26/23 Range/Units 18:44 08:36 Sodium 135 L 138 (137-145) mmol/L Potassium 5.4 H 5.1 (3.5-5.1) mmol/L Chloride 110 H 113 H (98-107) mmol/L Carbon Dioxide 17 L 17 L (22-30) mmol/L BUN 79 H 69 H (7-17) mg/dL Creatinine 1.63 H 1.68 H (0.52-1.04) mg/dL Glucose 286 H 281 H (74-99) mg/dL Calcium 9.0 8.6 (8.4-10.2) mg/dL AST 17 16 (14-36) U/L ALT 13 14 (4-34) U/L Alkaline Phosphatase 51 53 (38-126) U/L Total Protein 5.7 L 5.3 L (6.3-8.2) g/dL Albumin 3.7 3.3 L (3.5-5.0) g/dL Current Medications Generic Name Dose Route Start Last Admin Trade Name Freq PRN Reason Stop Dose Admin Amiodarone HCl 200 mg 11/27/23 09:00 Amiodarone 200 Mg Tab PO DAILY [facility] Atorvastatin Calcium 10 mg 11/26/23 21:00 Atorvastatin 10 Mg Tab PO HS [facility] Donepezil HCl 5 mg 11/26/23 10:30 Donepezil 5 Mg Tab PO DAILY [facility] Ferrous Sulfate 325 mg 11/27/23 09:00 Ferrous Sulfate 325 Mg Tab PO DAILY [facility] Sodium Chloride 1,000 mls @ 75 mls/hr 11/25/23 21:15 11/25/23 21:23 Saline 0.9% IV 75 mls/hr .[id number] [facility] Administration Meclizine HCl 25 mg 11/26/23 09:55 Meclizine 25 Mg Tab PO Q8H PRN Vertigo Memantine 10 mg 11/26/23 21:00 Memantine 10 Mg Tab PO BID [facility] Miscellaneous Information 1 each 11/25/23 20:53 Kcentra Per Pharmacy 1 Each Misc MISCELLANE DIRECTED PRN Bleeding Protocol Morphine Sulfate 4 mg 11/25/23 21:09 Morphine Sulfate 4 Mg/Ml Syringe IV Q4HR PRN Severe Pain (Scale 7 to 10) Naloxone HCl 0.2 mg 11/25/23 21:09 Naloxone 0.4 Mg/Ml 1 Ml Vial IV Q2M PRN Opioid Reversal Ondansetron HCl 4 mg 11/25/23 21:09 Ondansetron 4 Mg/2 Ml Vial IVP Q8HR PRN Nausea And Vomiting Pantoprazole Sodium 40 mg 11/25/23 21:15 11/26/23 08:27 Pantoprazole 40 Mg/10 Ml Vial IV 40 mg BID [facility] Administration Intake and Output 11/25/23 11/26/23 11/26/23 22:59 06:59 14:59 Intake Total 279 Balance 279 Intake: Blood Product 279 Rc Pheresis As-3 Unit 279 [id number] Other: Voiding Method Toilet Toilet # Voids 1 Weight 84.368 kg 83 kg 11/26/23 08:36 11/26/23 08:36
[2023-11-26 11:40] LABS: Glucose,Whole Blood 288 mg/dL (70-110)
[2023-11-26] MEDS: DONEPEZIL 5 MG TAB PO SCH (12:16)
[2023-11-26] MEDS: INSULIN ASPART (NovoLOG) 100 UNIT/ML VIAL SQ SCH (12:16)
--- NOTE | 2023-11-26 12:22 | P.HPIM ---
History of Present Illness H&P Date: 11/26/23 History of present illness; patient is a 88-year-old lady with past medical history significant for atrial fibrillation on Eliquis, hypertension, hyperlipidemia, dementia who presented to the hospital for black tarry stools. Patient stated that she has been dealing with black tarry stools for the last few months. Patient has been complaining of generalized weakness. Patient was also complaining of shortness of breath on exertion. Patient denies any nausea or vomiting. Denies any hematemesis. Patient was complaining of generalized weakness. Because of these symptoms, patient was seen at PCPs office and was found to have low hemoglobin levels and was referred to the ER immediately. Initial lab work done in the ER showed WBC 8, hemoglobin 5.1, hematocrit 50.9, sodium 135, potassium 5.4, BUN 79, creatinine 1.63, troponin 0.193 Patient admitted to internal medicine service REVIEW OF SYSTEMS: CONSTITUTIONAL: No fever, no malaise, no fatigue. HEENT: No recent visual problems or hearing problems. Denied any sore throat. CARDIOVASCULAR: No chest pain, orthopnea, PND, no palpitations, no syncope. PULMONARY: No shortness of breath, no cough, no hemoptysis. GASTROINTESTINAL: As mentioned above NEUROLOGICAL: No headaches, no weakness, no numbness. HEMATOLOGICAL: Denies any bleeding or petechiae. GENITOURINARY: Denies any burning micturition, frequency, or urgency. MUSCULOSKELETAL/RHEUMATOLOGICAL: Denies any joint pain, swelling, or any muscle pain. ENDOCRINE: Denies any polyuria or polydipsia. The rest of the 14-point review of systems is negative. PHYSICAL EXAMINATION: GENERAL: The patient is alert and oriented x3, not in any acute distress. Well developed, well nourished. HEENT: Pupils are round and equally reacting to light. EOMI. No scleral icterus. No conjunctival pallor. Normocephalic, atraumatic. No pharyngeal erythema. No thyromegaly. CARDIOVASCULAR: S1 and S2 present. No murmurs, rubs, or gallops. PULMONARY: Chest is clear to auscultation, no wheezing or crackles. ABDOMEN: Soft, nontender, nondistended, normoactive bowel sounds. No palpable organomegaly. MUSCULOSKELETAL: No joint swelling or deformity. EXTREMITIES: No cyanosis, clubbing, or pedal edema. NEUROLOGICAL: Gross neurological examination did not reveal any focal deficits. SKIN: No rashes. Assessment and plan GI bleed Acute blood loss anemia Black tarry stools. Elevated troponin Hyperkalemia Acute kidney injury Monitor vital signs Monitor CBC Monitor CMP Continue telemetry monitoring Trend troponins Patient received Kcentra in the ER for reversal of Eliquis. Patient received 1 unit packed red blood cell in the ER, will give 2 more units of packed red blood cells. Continue IV Protonix Ordered anemia workup blood pressure at this time is normotensive, hold all blood pressure medications for now Hold Eliquis Hold NSAIDs and antiplatelets Continue IV fluids No GI coverage at this time. Will consult general surgery for evaluation Consult cardiology Labs and medication were reviewed.. Continue same treatment. Continue with symptomatic treatment. Resume home medication. Monitor labs and vitals. DVT and GI prophylaxis. Further recommendations as per clinical course of the patient Dictation was produced using [employer] dictation software. please excuse any grammatical, word or spelling errors. Past Medical History Past Medical History: Atrial Fibrillation, Heart Failure, Dementia, Diabetes Mellitus, Hypertension, Pneumonia Additional Past Medical History / Comment(s): TB in 1955, heart murmur History of Any Multi-Drug Resistant Organisms: C-DIFF Date of last positivie culture/infection: 10/17/22 MDRO Source:: stool Past Surgical History: Hysterectomy Additional Past Surgical History / Comment(s): partial left lung removal at [facility] Past Anesthesia/Blood Transfusion Reactions: No Reported Reaction Past Psychological History: No Psychological Hx Reported Additional Psychological History / Comment(s): Pt resides alone. She uses a cane or walker. She has a glucometer. She no longer drives, her friend takes her to [facility]. She receives MOW. Smoking Status: Former smoker Past Alcohol Use History: Rare Additional Past Alcohol Use History / Comment(s): Pt started smoking as a teen and quit in 1973. Past Drug Use History: None Reported - Past Family History Mother Family Medical History: Cancer Additional Family Medical History / Comment(s): Unknown type of cancer. Father Family Medical History: Myocardial Infarction (PR) Medications and Allergies Home Medications Medication Instructions Recorded Confirmed Type Lovastatin [Mevacor] 20 mg PO HS 05/01/21 11/25/23 History Memantine [Namenda] 10 mg PO BID 05/01/21 11/25/23 History Donepezil [Aricept] 5 mg PO DAILY 10/05/22 11/25/23 History Ferrous Sulfate [Iron (65 MG 325 mg PO DAILY 10/05/22 11/25/23 History Elemental)] Meclizine [Antivert] 25 mg PO Q8H PRN 10/17/22 11/25/23 History Apixaban [Eliquis] 2.5 mg PO BID #60 tab 05/29/23 11/25/23 Rx Amiodarone [Cordarone] 200 mg PO DAILY 11/25/23 11/25/23 History Furosemide [Lasix] 20 mg PO DAILY 11/25/23 11/25/23 History Losartan [Cozaar] 25 mg PO DAILY 11/25/23 11/25/23 History glipiZIDE [Glucotrol] 10 mg PO BID 11/25/23 11/25/23 History hydrALAZINE HCL [Apresoline] 25 mg PO QID 11/25/23 11/25/23 History Allergies Allergy/AdvReac Type Severity Reaction Status Date / Time Sulfa (Sulfonamide Allergy Rash/Hives Verified 11/25/23 20:41 Antibiotics) Physical Exam Vitals: Vital Signs Temp Pulse Pulse Resp BP BP Pulse Ox 11/26/23 04:53 80 18 115/67 92 L 11/26/23 02:54 97.6 F 78 20 135/70 91 L 11/26/23 02:35 74 18 146/58 99 11/26/23 02:28 75 18 153/69 100 11/26/23 00:28 97.8 F 75 16 120/49 99 11/26/23 00:08 97.8 F 76 16 105/48 98 11/25/23 23:58 97.6 F 75 16 105/43 96 11/25/23 23:00 72 18 102/41 93 L 11/25/23 21:33 78 18 111/46 94 L 11/25/23 18:31 98.1 F 74 18 133/58 95 Intake and Output 11/25/23 11/26/23 11/26/23 22:59 06:59 14:59 Intake Total 279 Balance 279 Intake: Blood Product 279 Rc Pheresis As-3 Unit 279 [id number] Other: Voiding Method Toilet # Voids 1 Weight 84.368 kg 83 kg Results CBC & Chem 7: 11/26/23 08:36 11/26/23 08:36 Labs: Abnormal Lab Results - Last 24 Hours (Table) 11/25/23 11/25/23 11/25/23 Range/Units 18:30 18:44 18:44 RBC 1.47 L (3.80-5.40) m/uL Hgb 5.1 L* (11.4-16.0) gm/dL Hct 15.9 L* (34.0-46.0) % MCV 107.8 H (80.0-100.0) fL RDW 17.0 H (11.5-15.5) % Lymphocytes # (1.0-4.8) k/uL Macrocytosis Marked A APTT 19.8 L (22.0-30.0) sec Sodium (137-145) mmol/L Potassium (3.5-5.1) mmol/L Chloride (98-107) mmol/L Carbon Dioxide (22-30) mmol/L BUN (7-17) mg/dL Creatinine (0.52-1.04) mg/dL Glucose (74-99) mg/dL POC Glucose (mg/dL) (70-110) mg/dL Phosphorus (2.5-4.5) mg/dL Troponin I (0.000-0.034) ng/mL Total Protein (6.3-8.2) g/dL Albumin (3.5-5.0) g/dL Crossmatch See Detail 11/25/23 11/25/23 11/26/23 Range/Units 18:44 18:44 06:12 RBC (3.80-5.40) m/uL Hgb (11.4-16.0) gm/dL Hct (34.0-46.0) % MCV (80.0-100.0) fL RDW (11.5-15.5) % Lymphocytes # (1.0-4.8) k/uL Macrocytosis APTT (22.0-30.0) sec Sodium 135 L (137-145) mmol/L Potassium 5.4 H (3.5-5.1) mmol/L Chloride 110 H (98-107) mmol/L Carbon Dioxide 17 L (22-30) mmol/L BUN 79 H (7-17) mg/dL Creatinine 1.63 H (0.52-1.04) mg/dL Glucose 286 H (74-99) mg/dL POC Glucose (mg/dL) 360 H (70-110) mg/dL Phosphorus (2.5-4.5) mg/dL Troponin I 0.193 H* (0.000-0.034) ng/mL Total Protein 5.7 L (6.3-8.2) g/dL Albumin (3.5-5.0) g/dL Crossmatch 11/26/23 11/26/23 Range/Units 08:36 08:36 RBC 1.92 L (3.80-5.40) m/uL Hgb 6.3 L* (11.4-16.0) gm/dL Hct 19.9 L* (34.0-46.0) % MCV 103.6 H (80.0-100.0) fL RDW 18.6 H (11.5-15.5) % Lymphocytes # 0.8 L (1.0-4.8) k/uL Macrocytosis APTT (22.0-30.0) sec Sodium (137-145) mmol/L Potassium (3.5-5.1) mmol/L Chloride 113 H (98-107) mmol/L Carbon Dioxide 17 L (22-30) mmol/L BUN 69 H (7-17) mg/dL Creatinine 1.68 H (0.52-1.04) mg/dL Glucose 281 H (74-99) mg/dL POC Glucose (mg/dL) (70-110) mg/dL Phosphorus 5.0 H (2.5-4.5) mg/dL Troponin I (0.000-0.034) ng/mL Total Protein 5.3 L (6.3-8.2) g/dL Albumin 3.3 L (3.5-5.0) g/dL Crossmatch Thrombosis Risk Factor Assmnt - Choose All That Apply Each Factor Represents 1 point: Obesity (BMI >25) Each Risk Factor Represents 3 Points: Age 75 years or older Thrombosis Risk Factor Assessment Total Risk Factor Score: 4 Thrombosis Risk Factor Assessment Level: Moderate Risk
--- NOTE | 2023-11-26 16:35 | P.CON ---
Consult Note - . Consult date: 11/26/23 Assessment/Plan:: HISTORY OF PRESENT ILLNESS: This is a 88-year-old female with a past medical history significant for paroxysmal atrial fibrillation, aortic stenosis, congestive heart failure, hypertension, hyperlipidemia, diabetes, and peripheral arterial disease. Patient examined at the bedside. Patient initially presented to the hospital with a chief complaint of fatigue and generally feeling unwell. The patient was found to be anemic with a hemoglobin of 5.1. She did receive RBC transfusion. Repeat hemoglobin is 6.3. She denies any chest pain or pressure. Blood pressure stable with a recent reading of 103/56. REVIEW OF SYSTEMS: At the time of my exam: CONSTITUTIONAL: Denies fever or chills. HEENT: Denies blurred vision, vision changes, or eye pain. Denies hemoptysis CARDIOVASCULAR: Denies chest pain. Denies orthopnea. Denies PND. Denies palpitations RESPIRATORY: Denies shortness of breath. GASTROINTESTINAL: Denies abdominal pain. Denies nausea or vomiting. HEMATOLOGIC: Denies bleeding disorders. GENITOURINARY: Denies any blood in urine. SKIN: Denies pruitis. Denies rash. PHYSICAL EXAM: VITAL SIGNS: Reviewed. GENERAL: Well-developed in no acute distress. HEENT: Head is normocephalic. Pupils are equal, round. Sclerae anicteric. Mucous membranes of the mouth are moist. Neck supple. No JVD or thyromegaly LUNGS: Respirations even and unlabored. Lungs essentially clear to auscultation bilaterally. HEART: Regular rate and rhythm. S1 and S2 heard. Systolic murmur noted ABDOMEN: Soft. Nondistended. Nontender. EXTREMITIES: Normal range of motion. No clubbing or cyanosis. Peripheral pulses intact. No lower extremity edema NEUROLOGIC: Awake and alert. Oriented x 3. ASSESSMENT: Generalized weakness Acute anemia PLAN: Transfuse PRBCs Patient HD stable at this time. No emergency colonoscopy at moment Will follow
[2023-11-26 16:39] LABS: Glucose,Whole Blood 190 mg/dL (70-110)
[2023-11-26] MEDS: FUROSEMIDE 10 MG/ML 2 ML VIAL IV ONE (19:44)
[2023-11-26 19:56] LABS: Glucose,Whole Blood 238 mg/dL (70-110)
[2023-11-26] MEDS: ATORVASTATIN 10 MG TAB PO SCH (20:09)
[2023-11-26] MEDS: MEMANTINE 5 MG TAB PO SCH (20:10)
[2023-11-26 20:36] LABS: Anisocytosis Slight; Basophils % (A) 1 %; Eosinophils # (A) 0.1 k/uL (0-0.7); Eosinophils % (A) 2 %; HCT 30.4 % (34.0-46.0); Hypochromasia Moderate; Lymphocytes # (A) 1.4 k/uL (1.0-4.8); Lymphocytes % (A) 16 %; MCH 31.1 pg (25.0-35.0); MCHC 31.8 g/dL (31.0-37.0); Macrocytosis Slight; Mean Platelet Volume 9.1; Monocytes # (A) 0.7 k/uL (0-1.0); Monocytes % (A) 8 %; Neutrophils # (A) 6.3 k/uL (1.3-7.7); Neutrophils % (A) 73 %; Platelet Count 211 k/uL (150-450); Poikilocytosis Slight; RBC 3.11 m/uL (3.80-5.40); WBC 8.6 k/uL (3.8-10.6)
[2023-11-26] MEDS ORDERED: MEMANTINE 10 MG TAB PO SCH (21:00)
[2023-11-26 21:10] LABS: HGB 9.7 gm/dL (11.4-16.0)
[2023-11-26 21:11] LABS: MCV 97.7 fL (80.0-100.0)
[2023-11-26] MEDS ORDERED: IPRATROPIUM-ALBUTEROL 3 ML NEB INHALATION PRN (22:28)
[2023-11-26 23:08] LABS: % Iron Saturation 5.54 (12.00-45.00); Ferritin 32.8 ng/mL (10.0-291.0)
[2023-11-26] MEDS: ACETAMINOPHEN TAB 325 MG TAB PO PRN (23:08)
[2023-11-27 06:21] LABS: Glucose,Whole Blood 199 mg/dL (70-110)
--- NOTE | 2023-11-27 07:53 | CA ---
Transthoracic Echo Report Name: Jelly Cedillo Age: 88 Gender: F : 1935 Exam Date: 11/26/2023 13:13 Exam Location: [facility] Ht (in): 67 Wt (lb): 182 Ordering Physician: Milagros Wray Attending/Referring Phys: [id number], Kamala Reel Cutter Nat Polanco RDCS Procedure CPT: Indications: LV function, aortic stenosis Cardiac Hx: Technical Quality: Fair Contrast 1: Total Dose (mL): Contrast 2: Total Dose (mL): MEASUREMENTS (Male / Female) Normal Values 2D ECHO LV Diastolic Diameter PLAX 6.5 cm 4.2 - 5.9 / 3.9 - 5.3 cm LV Systolic Diameter PLAX 4.5 cm IVS Diastolic Thickness 1.0 cm 0.6 - 1.0 / 0.6 - 0.9 cm LVPW Diastolic Thickness 1.0 cm 0.6 - 1.0 / 0.6 - 0.9 cm LV Relative Wall Thickness 0.3 RV Internal Dim ED PLAX 3.0 cm LVOT Diameter 2.1 cm LA Systolic Diameter LX 4.4 cm 3.0 - 4.0 / 2.7 - 3.8 cm LV Diastolic Volume MOD 4C 119.3 cm??? LV Systolic Volume MOD 4C 83.8 cm??? LV Ejection Fraction MOD 4C 29.7 % LV Cardiac Index MOD 4C 1331.9 cm???/min???m??? LV Diastolic Length 4C 6.8 cm LV Systolic Length 4C 6.1 cm LV Diastolic Volume MOD 2C 118.6 cm??? LV Systolic Volume MOD 2C 79.2 cm??? LV Ejection Fraction MOD 2C 33.2 % LV Cardiac Index MOD 2C 1481.5 cm???/min???m??? LV Diastolic Length 2C 7.5 cm LV Systolic Length 2C 6.7 cm LA Volume 99.2 cm??? 18 - 58 / 22 - 52 cm??? LA Volume Index 49.7 cm???/m??? 16 - 28 cm???/m??? M-MODE Aortic Root Diameter MM 3.0 cm MV E Point Septal Separation 1.0 cm AV Cusp Separation MM 0.9 cm DOPPLER AV Peak Velocity 358.4 cm/s AV Peak Gradient 51.4 mmHg AV Mean Velocity 249.1 cm/s AV Mean Gradient 27.9 mmHg AV Velocity Time Integral 81.6 cm LVOT Peak Velocity 108.4 cm/s LVOT Peak Gradient 4.7 mmHg AV Area Cont Eq pk 1.1 cm??? MV Area PHT 4.6 cm??? Mitral E Point Velocity 141.3 cm/s Mitral A Point Velocity 109.0 cm/s Mitral E to A Ratio 1.3 MV Deceleration Time 165.0 ms TR Peak Velocity 361.3 cm/s TR Peak Gradient 52.2 mmHg Right Ventricular Systolic Press 55.4 mmHg FINDINGS Left Ventricle Left ventricular ejection fraction is estimated at 30-35 %. Mildly increased septal wall thickness. Severely increased left ventricular diastolic diameter. Right Ventricle Normal right ventricular size. Severe pulmonary hypertension. Right ventricular systolic pressure estimated at 55 mm hg. Right Atrium Right atrium not well visualized. Left Atrium Moderately increased left atrial diameter. Severely increased left atrial volume. Mildly increased left atrial area. Mitral Valve Moderate thickening/calcification of the anterior mitral valve leaflet. Moderate thickening/calcification of the posterior mitral valve leaflet. Mild mitral annular calcification. Mild mitral regurgitation. Aortic Valve Aortic valve sclerosis. Moderate aortic stenosis with a peak gradient of 51 mmHg and a mean gradient of 28 mmHg. Tricuspid Valve Structurally normal tricuspid valve. Mild tricuspid regurgitation. Pulmonic Valve Pulmonic valve not well visualized. Pericardium No pericardial effusion. Aorta Normal size aortic root and proximal ascending aorta. CONCLUSIONS Severe ileus LV systolic dysfunction with an ejection fraction of 30-35% Severe pulmonary hypertension Moderate aortic stenosis Severe mitral annular are calcification with restricted leaflet mobility and mild mitral regurgitation Previewed by: Dr. Bronson Hernández MD (Electronically Signed) Final Date: 27 November 2023 07:52
[2023-11-27 07:58] LABS: Anisocytosis Slight; Basophils # (A) 0.1 k/uL (0-0.2); Basophils % (A) 1 %; Eosinophils # (A) 0.1 k/uL (0-0.7); Eosinophils % (A) 2 %; HCT 28.4 % (34.0-46.0); HGB 9.2 gm/dL (11.4-16.0); Hypochromasia Moderate; Lymphocytes # (A) 0.9 k/uL (1.0-4.8); Lymphocytes % (A) 11 %; MCH 31.4 pg (25.0-35.0); MCHC 32.4 g/dL (31.0-37.0); MCV 96.7 fL (80.0-100.0); Macrocytosis Slight; Mean Platelet Volume 9.2; Monocytes # (A) 0.5 k/uL (0-1.0); Monocytes % (A) 7 %; Neutrophils # (A) 6.3 k/uL (1.3-7.7); Neutrophils % (A) 78 %; Platelet Count 193 k/uL (150-450); Poikilocytosis Slight; RBC 2.93 m/uL (3.80-5.40); RDW 18.4 % (11.5-15.5)
[2023-11-27] MEDS: AMIODARONE 200 MG TAB PO SCH (08:33)
[2023-11-27] MEDS: FERROUS SULFATE 325 MG TAB PO SCH (08:33)
[2023-11-27 08:47] LABS: ALT 13 U/L (4-34); AST 18 U/L (14-36); African American GFR (CKD) 32 (>60 ml/min/1.73 sqM); Albumin 3.2 g/dL (3.5-5.0); Alkaline Phosphatase 55 U/L (38-126); Anion Gap 8 mmol/L; Blood Urea Nitrogen 55 mg/dL (7-17); Calcium 8.7 mg/dL (8.4-10.2); Carbon Dioxide 20 mmol/L (22-30); Chloride 110 mmol/L (98-107); Glucose 175 mg/dL (74-99); Non-African American GFR(CKD) 27 (>60 ml/min/1.73 sqM); Potassium 4.4 mmol/L (3.5-5.1); Sodium 138 mmol/L (137-145); Total Protein 5.3 g/dL (6.3-8.2)
[2023-11-27] MEDS: IPRATROPIUM-ALBUTEROL 3 ML NEB INHALATION SCH (09:20)
[2023-11-27] MEDS: METOPROLOL TARTRATE 25 MG TAB PO SCH (10:06)
[2023-11-27] MEDS: FUROSEMIDE 20 MG TAB PO SCH (10:06)
--- NOTE | 2023-11-27 10:35 | P.PN ---
Subjective Progress Note Date: 11/27/23 Principal diagnosis: Anemia 88-year-old female came to the hospital with weakness. Found to be significantly anemic. She admits to intermittent black stools for the last few months. She underwent EGD and colonoscopy last in July 2021. She had gastritis, hiatal hernia, esophagitis, diverticulosis, hemorrhoids at the time. Feels well today. She is currently showering. Denies pain. Denies rectal bleeding. Patient on Eliquis at home. Objective - Vital Signs Vital signs: Vital Signs Temp 97.6 F 11/27/23 08:30 Pulse 73 11/27/23 08:30 Resp 18 11/27/23 08:30 BP 101/57 11/27/23 08:30 Pulse Ox 100 11/27/23 09:21 FiO2 Intake & Output 11/26/23 11/27/23 11/27/23 18:59 06:59 18:59 Intake Total 1752 200 Output Total 900 300 Balance 1752 -900 -100 Weight 82.5 kg Intake: Oral 1160 200 Blood Product 592 Rc As-1 Unit 310 [id number] Rc Pheresis 2 As3 Unit 282 [id number] Output: Urine 900 300 Other: Voiding Method Toilet Toilet Toilet # Voids 2 1 # Bowel Movements 1 - Exam Exam deferred as patient is in shower currently. Neurologically intact. - Labs CBC & Chem 7: 11/27/23 07:10 11/27/23 07:10 Labs: Abnormal Lab Results - Last 24 Hours (Table) 11/25/23 11/26/23 11/26/23 Range/Units 18:30 10:21 10:21 RBC (3.80-5.40) m/uL Hgb (11.4-16.0) gm/dL Hct (34.0-46.0) % RDW (11.5-15.5) % Lymphocytes # (1.0-4.8) k/uL Chloride (98-107) mmol/L Carbon Dioxide (22-30) mmol/L BUN (7-17) mg/dL Creatinine (0.52-1.04) mg/dL Glucose (74-99) mg/dL POC Glucose (mg/dL) (70-110) mg/dL Iron 19 L (50-170) UG/DL % Saturation 5.54 L (12.00-45.00) Troponin I 0.389 H* (0.000-0.034) ng/mL Total Protein (6.3-8.2) g/dL Albumin (3.5-5.0) g/dL Crossmatch See Detail 11/26/23 11/26/23 11/26/23 Range/Units 11:37 16:38 19:47 RBC 3.11 L (3.80-5.40) m/uL Hgb 9.7 L D (11.4-16.0) gm/dL Hct 30.4 L (34.0-46.0) % RDW 18.0 H (11.5-15.5) % Lymphocytes # (1.0-4.8) k/uL Chloride (98-107) mmol/L Carbon Dioxide (22-30) mmol/L BUN (7-17) mg/dL Creatinine (0.52-1.04) mg/dL Glucose (74-99) mg/dL POC Glucose (mg/dL) 288 H 190 H (70-110) mg/dL Iron (50-170) UG/DL % Saturation (12.00-45.00) Troponin I (0.000-0.034) ng/mL Total Protein (6.3-8.2) g/dL Albumin (3.5-5.0) g/dL Crossmatch 11/26/23 11/27/23 11/27/23 Range/Units 19:52 06:18 07:10 RBC 2.93 L (3.80-5.40) m/uL Hgb 9.2 L (11.4-16.0) gm/dL Hct 28.4 L (34.0-46.0) % RDW 18.4 H (11.5-15.5) % Lymphocytes # 0.9 L (1.0-4.8) k/uL Chloride (98-107) mmol/L Carbon Dioxide (22-30) mmol/L BUN (7-17) mg/dL Creatinine (0.52-1.04) mg/dL Glucose (74-99) mg/dL POC Glucose (mg/dL) 238 H 199 H (70-110) mg/dL Iron (50-170) UG/DL % Saturation (12.00-45.00) Troponin I (0.000-0.034) ng/mL Total Protein (6.3-8.2) g/dL Albumin (3.5-5.0) g/dL Crossmatch 11/27/23 Range/Units 07:10 RBC (3.80-5.40) m/uL Hgb (11.4-16.0) gm/dL Hct (34.0-46.0) % RDW (11.5-15.5) % Lymphocytes # (1.0-4.8) k/uL Chloride 110 H (98-107) mmol/L Carbon Dioxide 20 L (22-30) mmol/L BUN 55 H (7-17) mg/dL Creatinine 1.65 H (0.52-1.04) mg/dL Glucose 175 H (74-99) mg/dL POC Glucose (mg/dL) (70-110) mg/dL Iron (50-170) UG/DL % Saturation (12.00-45.00) Troponin I (0.000-0.034) ng/mL Total Protein 5.3 L (6.3-8.2) g/dL Albumin 3.2 L (3.5-5.0) g/dL Crossmatch Assessment and Plan (1) GI bleed Narrative/Plan: 88-year-old female with melanotic stools and anemia. Patient is no code. Will discuss further with patient, family, and primary service whether they wish for us to proceed with endoscopy. Likely would omit colonoscopy given the last colonoscopy 2 years ago. Current Visit: Yes Status: Acute Code(s): K92.2 - GASTROINTESTINAL HEMORRHAGE, UNSPECIFIED SNOMED Code(s): 34733092
--- NOTE | 2023-11-27 10:54 | P.PN ---
Subjective HISTORY OF PRESENT ILLNESS: This is a 88-year-old female with a past medical history significant for paroxysmal atrial fibrillation, aortic stenosis, congestive heart failure, hypertension, hyperlipidemia, diabetes, and peripheral arterial disease. Patient follows in the office with Dr. Grande. We have been asked to see the patient in consultation for elevated troponins. Patient examined at the bedside. Patient initially presented to the hospital with a chief complaint of fatigue and generally feeling unwell. The patient was found to be anemic with a hemoglobin of 5.1. She did receive RBC transfusion. Repeat hemoglobin is 6.3. She denies any chest pain or pressure. Blood pressure stable with a recent reading of 103/56. DIAGNOSTICS: - EKG reveals sinus mechanism with ST depression in lead I and V4V6 with T wave inversions in aVL - Laboratory data: Hemoglobin 5.1. Repeat 6.3. Sodium 135. Potassium 5.4. BUN 79. Creatinine 1.63. Troponin 0.193. - Current home cardiac medications include lovastatin 20 mg at night, hydral azine 25 mg 4 times a day, losartan 25 mg daily, Eliquis 2.5 mg twice a day, amiodarone 200 mg daily, Lasix 20 mg daily - Most recent echocardiogram obtained in July 2021 revealed ejection fraction 55 to 60%, mild aortic stenosis, mild mitral regurgitation, and mild to moderate tricuspid regurgitation with severe pulmonary hypertension November 27, 2023 Patient examined this morning. Patient denies chest pain or pressure. She denies shortness of breath. Hemoglobin this morning is 9.2. General surgery is following for possible endoscopy. Patient anticoagulation remains on hold. Echocardiogram completed revealed ejection fraction 30 to 35% with moderate aortic stenosis. PHYSICAL EXAM: VITAL SIGNS: Reviewed. GENERAL: Well-developed in no acute distress. HEENT: Head is normocephalic. Pupils are equal, round. Sclerae anicteric. Mucous membranes of the mouth are moist. Neck supple. No JVD or thyromegaly LUNGS: Respirations even and unlabored. Lungs essentially clear to auscultation bilaterally. HEART: Regular rate and rhythm. S1 and S2 heard. Systolic murmur noted ABDOMEN: Soft. Nondistended. Nontender. EXTREMITIES: Normal range of motion. No clubbing or cyanosis. Peripheral pulses intact. No lower extremity edema NEUROLOGIC: Awake and alert. Oriented x 3. ASSESSMENT: Generalized weakness Acute anemia Elevated troponin, secondary to above, no evidence of acute coronary syndrome, type II VT Paroxysmal atrial fibrillation, anticoagulated with Eliquis on an outpatient basis Congestive heart failure with preserved EF, currently euvolemic Moderate aortic stenosis Hypertension Hyperlipidemia Diabetes History of peripheral arterial disease New onset cardiomyopathy, ischemic versus nonischemic Acute kidney injury PLAN: Hold anticoagulation due to acute anemia General surgery has been consulted for evaluation. Await recommendations Increase atorvastatin to 40 mg at night. Obtain lipid panel Add metoprolol 25 mg twice a day No ANDI/ARB at this time secondary to acute kidney injury Further evaluation of new cardiomyopathy to be completed on an outpatient basis secondary to patient's acute issues Further recommendations pending patient course Nurse practitioner note has been reviewed by physician. Signing provider agrees with the documented findings, assessment, and plan of care documented by [employer] as a scribe. Objective - Vital Signs Vital signs: Vital Signs Temp 97.6 F 11/27/23 08:30 Pulse 73 11/27/23 08:30 Resp 18 11/27/23 08:30 BP 101/57 11/27/23 08:30 Pulse Ox 100 11/27/23 09:21 FiO2 Intake & Output 11/26/23 11/27/23 11/27/23 18:59 06:59 18:59 Intake Total 1752 200 Output Total 900 300 Balance 1752 -900 -100 Weight 82.5 kg Intake: Oral 1160 200 Blood Product 592 Rc As-1 Unit 310 [id number] Rc Pheresis 2 As3 Unit 282 [id number] Output: Urine 900 300 Other: Voiding Method Toilet Toilet Toilet # Voids 2 1 # Bowel Movements 1 - Labs CBC & Chem 7: 11/27/23 07:10 11/27/23 07:10 Labs: Abnormal Lab Results - Last 24 Hours (Table) 11/25/23 11/26/23 11/26/23 Range/Units 18:30 10:21 10:21 RBC (3.80-5.40) m/uL Hgb (11.4-16.0) gm/dL Hct (34.0-46.0) % RDW (11.5-15.5) % Lymphocytes # (1.0-4.8) k/uL Chloride (98-107) mmol/L Carbon Dioxide (22-30) mmol/L BUN (7-17) mg/dL Creatinine (0.52-1.04) mg/dL Glucose (74-99) mg/dL POC Glucose (mg/dL) (70-110) mg/dL Iron 19 L (50-170) UG/DL % Saturation 5.54 L (12.00-45.00) Troponin I 0.389 H* (0.000-0.034) ng/mL Total Protein (6.3-8.2) g/dL Albumin (3.5-5.0) g/dL Crossmatch See Detail 11/26/23 11/26/23 11/26/23 Range/Units 11:37 16:38 19:47 RBC 3.11 L (3.80-5.40) m/uL Hgb 9.7 L D (11.4-16.0) gm/dL Hct 30.4 L (34.0-46.0) % RDW 18.0 H (11.5-15.5) % Lymphocytes # (1.0-4.8) k/uL Chloride (98-107) mmol/L Carbon Dioxide (22-30) mmol/L BUN (7-17) mg/dL Creatinine (0.52-1.04) mg/dL Glucose (74-99) mg/dL POC Glucose (mg/dL) 288 H 190 H (70-110) mg/dL Iron (50-170) UG/DL % Saturation (12.00-45.00) Troponin I (0.000-0.034) ng/mL Total Protein (6.3-8.2) g/dL Albumin (3.5-5.0) g/dL Crossmatch 11/26/23 11/27/23 11/27/23 Range/Units 19:52 06:18 07:10 RBC 2.93 L (3.80-5.40) m/uL Hgb 9.2 L (11.4-16.0) gm/dL Hct 28.4 L (34.0-46.0) % RDW 18.4 H (11.5-15.5) % Lymphocytes # 0.9 L (1.0-4.8) k/uL Chloride (98-107) mmol/L Carbon Dioxide (22-30) mmol/L BUN (7-17) mg/dL Creatinine (0.52-1.04) mg/dL Glucose (74-99) mg/dL POC Glucose (mg/dL) 238 H 199 H (70-110) mg/dL Iron (50-170) UG/DL % Saturation (12.00-45.00) Troponin I (0.000-0.034) ng/mL Total Protein (6.3-8.2) g/dL Albumin (3.5-5.0) g/dL Crossmatch 11/27/23 Range/Units 07:10 RBC (3.80-5.40) m/uL Hgb (11.4-16.0) gm/dL Hct (34.0-46.0) % RDW (11.5-15.5) % Lymphocytes # (1.0-4.8) k/uL Chloride 110 H (98-107) mmol/L Carbon Dioxide 20 L (22-30) mmol/L BUN 55 H (7-17) mg/dL Creatinine 1.65 H (0.52-1.04) mg/dL Glucose 175 H (74-99) mg/dL POC Glucose (mg/dL) (70-110) mg/dL Iron (50-170) UG/DL % Saturation (12.00-45.00) Troponin I (0.000-0.034) ng/mL Total Protein 5.3 L (6.3-8.2) g/dL Albumin 3.2 L (3.5-5.0) g/dL Crossmatch
[2023-11-27 11:21] LABS: Glucose,Whole Blood 300 mg/dL (70-110)
[2023-11-27 11:21] LABS: Glucose,Whole Blood 293 mg/dL (70-110)
--- NOTE | 2023-11-27 12:25 | P.PN ---
Subjective Progress Note Date: 11/27/23 patient is a 88-year-old lady with past medical history significant for atrial fibrillation on Eliquis, hypertension, hyperlipidemia, dementia who presented to the hospital for black tarry stools. Patient stated that she has been dealing with black tarry stools for the last few months. Patient has been complaining of generalized weakness. Patient was also complaining of shortness of breath on exertion. Patient denies any nausea or vomiting. Denies any hematemesis. Patient was complaining of generalized weakness. Because of these symptoms, patient was seen at PCPs office and was found to have low hemoglobin levels and was referred to the ER immediately. Initial lab work done in the ER showed WBC 8, hemoglobin 5.1, hematocrit 50.9, sodium 135, potassium 5.4, BUN 79, creatinine 1.63, troponin 0.193 Patient admitted to internal medicine service 11/27. Patient seen and examined. Blood work done this morning showed WBC 8, hemoglobin 9.2, sodium 138, potassium 4.4, BUN 55, creatinine 1.65. No further episodes of blood in the stools. Denies any nausea or vomiting. Denies any shortness of breath at rest. REVIEW OF SYSTEMS: CONSTITUTIONAL: No fever, no malaise,. CARDIOVASCULAR: No chest pain, no palpitations, no syncope. PULMONARY: No shortness of breath, no cough, GASTROINTESTINAL: No diarrhea, no nausea, no vomiting, no abdominal pain. NEUROLOGICAL: No headaches, no weakness, PHYSICAL EXAMINATION: GENERAL: The patient is alert and oriented x3, not in any acute distress. Well developed, well nourished. HEENT: Pupils are round and equally reacting to light. EOMI. No scleral icterus. No conjunctival pallor. Normocephalic, atraumatic. No pharyngeal erythema. No thyromegaly. CARDIOVASCULAR: S1 and S2 present. Systolic murmur audible aortic area, no rubs, or gallops. PULMONARY: Chest is clear to auscultation, no wheezing or crackles. ABDOMEN: Soft, nontender, nondistended, normoactive bowel sounds. No palpable organomegaly. MUSCULOSKELETAL: No joint swelling or deformity. EXTREMITIES: No cyanosis, clubbing, or pedal edema. NEUROLOGICAL: Gross neurological examination did not reveal any focal deficits. SKIN: No rashes. Assessment and plan GI bleed Acute blood loss anemia Black tarry stools. Elevated troponin Hyperkalemia Acute kidney injury Paroxysmal atrial fibrillation, anticoagulated with Eliquis on an outpatient basis Congestive heart failure with preserved EF, currently euvolemic Mild aortic stenosis Hypertension Hyperlipidemia Diabetes History of peripheral arterial disease Monitor vital signs Monitor CBC Monitor CMP Continue telemetry monitoring Trend troponins Patient received Kcentra in the ER for reversal of Eliquis. Patient received 1 unit packed red blood cell in the ER on 11/25,2 more units of packed red blood cells on 11/26. Continue IV Protonix Hold Eliquis Hold NSAIDs and antiplatelets DC fluids Resume Lasix and hydralazine Echocardiogram completed revealed ejection fraction 30 to 35% with moderate aortic stenosis. Continue Lopressor No GI coverage at this time. General surgery following Neurology following Labs and medication were reviewed.. Continue same treatment. Continue with symptomatic treatment. Resume home medication. Monitor labs and vitals. DVT and GI prophylaxis. Further recommendations as per clinical course of the patient Dictation was produced using [employer] dictation software. please excuse any grammatical, word or spelling errors. Objective - Vital Signs Vital signs: Vital Signs Temp 98.0 F 11/26/23 19:42 Pulse 71 11/27/23 03:14 Resp 18 11/27/23 03:14 BP 144/71 11/27/23 03:14 Pulse Ox 100 11/27/23 09:21 FiO2 Intake & Output 11/26/23 11/27/23 11/27/23 18:59 06:59 18:59 Intake Total 1752 Output Total 900 Balance 1752 -900 Weight 82.5 kg Intake: Oral 1160 Blood Product 592 Rc As-1 Unit 310 [id number] Rc Pheresis 2 As3 Unit 282 [id number] Output: Urine 900 Other: Voiding Method Toilet Toilet # Voids 2 1 - Labs CBC & Chem 7: 11/27/23 07:10 11/27/23 07:10 Labs: Abnormal Lab Results - Last 24 Hours (Table) 11/25/23 11/26/23 11/26/23 Range/Units 18:30 08:36 08:36 RBC 1.92 L (3.80-5.40) m/uL Hgb 6.3 L* (11.4-16.0) gm/dL Hct 19.9 L* (34.0-46.0) % MCV 103.6 H (80.0-100.0) fL RDW 18.6 H (11.5-15.5) % Lymphocytes # 0.8 L (1.0-4.8) k/uL Chloride 113 H (98-107) mmol/L Carbon Dioxide 17 L (22-30) mmol/L BUN 69 H (7-17) mg/dL Creatinine 1.68 H (0.52-1.04) mg/dL Glucose 281 H (74-99) mg/dL POC Glucose (mg/dL) (70-110) mg/dL Phosphorus 5.0 H (2.5-4.5) mg/dL Iron (50-170) UG/DL % Saturation (12.00-45.00) Troponin I (0.000-0.034) ng/mL Total Protein 5.3 L (6.3-8.2) g/dL Albumin 3.3 L (3.5-5.0) g/dL Crossmatch See Detail 11/26/23 11/26/23 11/26/23 Range/Units 10:21 10:21 11:37 RBC (3.80-5.40) m/uL Hgb (11.4-16.0) gm/dL Hct (34.0-46.0) % MCV (80.0-100.0) fL RDW (11.5-15.5) % Lymphocytes # (1.0-4.8) k/uL Chloride (98-107) mmol/L Carbon Dioxide (22-30) mmol/L BUN (7-17) mg/dL Creatinine (0.52-1.04) mg/dL Glucose (74-99) mg/dL POC Glucose (mg/dL) 288 H (70-110) mg/dL Phosphorus (2.5-4.5) mg/dL Iron 19 L (50-170) UG/DL % Saturation 5.54 L (12.00-45.00) Troponin I 0.389 H* (0.000-0.034) ng/mL Total Protein (6.3-8.2) g/dL Albumin (3.5-5.0) g/dL Crossmatch 11/26/23 11/26/23 11/26/23 Range/Units 16:38 19:47 19:52 RBC 3.11 L (3.80-5.40) m/uL Hgb 9.7 L D (11.4-16.0) gm/dL Hct 30.4 L (34.0-46.0) % MCV (80.0-100.0) fL RDW 18.0 H (11.5-15.5) % Lymphocytes # (1.0-4.8) k/uL Chloride (98-107) mmol/L Carbon Dioxide (22-30) mmol/L BUN (7-17) mg/dL Creatinine (0.52-1.04) mg/dL Glucose (74-99) mg/dL POC Glucose (mg/dL) 190 H 238 H (70-110) mg/dL Phosphorus (2.5-4.5) mg/dL Iron (50-170) UG/DL % Saturation (12.00-45.00) Troponin I (0.000-0.034) ng/mL Total Protein (6.3-8.2) g/dL Albumin (3.5-5.0) g/dL Crossmatch 11/27/23 11/27/23 11/27/23 Range/Units 06:18 07:10 07:10 RBC 2.93 L (3.80-5.40) m/uL Hgb 9.2 L (11.4-16.0) gm/dL Hct 28.4 L (34.0-46.0) % MCV (80.0-100.0) fL RDW 18.4 H (11.5-15.5) % Lymphocytes # 0.9 L (1.0-4.8) k/uL Chloride 110 H (98-107) mmol/L Carbon Dioxide 20 L (22-30) mmol/L BUN 55 H (7-17) mg/dL Creatinine 1.65 H (0.52-1.04) mg/dL Glucose 175 H (74-99) mg/dL POC Glucose (mg/dL) 199 H (70-110) mg/dL Phosphorus (2.5-4.5) mg/dL Iron (50-170) UG/DL % Saturation (12.00-45.00) Troponin I (0.000-0.034) ng/mL Total Protein 5.3 L (6.3-8.2) g/dL Albumin 3.2 L (3.5-5.0) g/dL Crossmatch
[2023-11-27 14:36] LABS: Chol/HDL Ratio 2.46 Ratio; LDL Cholesterol,Calculated 62.7 mg/dL (0.0-131.0)
[2023-11-27 16:22] LABS: Glucose,Whole Blood 178 mg/dL (70-110)
[2023-11-27 20:13] LABS: Glucose,Whole Blood 172 mg/dL (70-110)
[2023-11-27] MEDS: ATORVASTATIN 40 MG TAB PO SCH (20:18)
[2023-11-28] MEDS: hydrALAZINE HCL 25 MG TAB PO SCH (00:04)
[2023-11-28 05:51] LABS: Glucose,Whole Blood 153 mg/dL (70-110)
[2023-11-28 06:52] LABS: Anisocytosis Slight; Basophils % (A) 1 %; Eosinophils # (A) 0.2 k/uL (0-0.7); Eosinophils % (A) 4 %; HCT 25.7 % (34.0-46.0); HGB 8.5 gm/dL (11.4-16.0); Hypochromasia Moderate; Lymphocytes % (A) 18 %; MCH 32.1 pg (25.0-35.0); MCHC 33.1 g/dL (31.0-37.0); MCV 96.9 fL (80.0-100.0); Macrocytosis Slight; Mean Platelet Volume 9.1; Monocytes # (A) 0.4 k/uL (0-1.0); Monocytes % (A) 7 %; Neutrophils % (A) 69 %; Platelet Count 201 k/uL (150-450); Poikilocytosis Slight; RBC 2.66 m/uL (3.80-5.40); RDW 17.4 % (11.5-15.5); WBC 5.7 k/uL (3.8-10.6)
--- NOTE | 2023-11-28 11:18 | P.PN ---
Subjective Progress Note Date: 11/28/23 CHIEF COMPLAINT: Anemia HISTORY OF PRESENT ILLNESS: Patient admitted to the hospital with weakness, anemia and black stools. Patient scheduled for EGD today. Denies abdominal pain. Denies any nausea or vomiting. Hemoglobin did go up to 9.2 down to 8.5. She has received a total of 3 units of blood during her admission. Patient on Eliquis at home. PHYSICAL EXAM: VITAL SIGNS: Reviewed. GENERAL: Well-developed in no acute distress. ABDOMEN: Soft. Nondistended. Nontender. ASSESSMENT: 1. Anemia with melanotic stools PLAN: -[facility] Phys[facility] Walking Dragline Oiler note has been reviewed by physician. Signing provider agrees with the documented findings, assessment, and plan of care. Objective - Vital Signs Vital signs: Vital Signs Temp 97.9 F 11/28/23 08:00 Pulse 72 11/28/23 09:04 Resp 18 11/28/23 08:00 BP 97/49 11/28/23 08:00 Pulse Ox 93 L 11/28/23 08:00 FiO2 Intake & Output 11/27/23 11/28/23 11/28/23 18:59 06:59 18:59 Intake Total 600 130 Output Total 300 300 200 Balance 300 -170 -200 Intake: IV 10 Invasive Line 3 10 Oral 600 120 Output: Urine 300 300 200 Other: Voiding Method Toilet Bedside Commode Bedside Commode # Voids 1 # Bowel Movements 1 - Labs CBC & Chem 7: 11/28/23 06:17 11/27/23 07:10 Labs: Abnormal Lab Results - Last 24 Hours (Table) 11/27/23 11/27/23 11/27/23 Range/Units 11:17 11:18 16:21 RBC (3.80-5.40) m/uL Hgb (11.4-16.0) gm/dL Hct (34.0-46.0) % RDW (11.5-15.5) % POC Glucose (mg/dL) 300 H 293 H 178 H (70-110) mg/dL 11/27/23 11/28/23 11/28/23 Range/Units 20:11 05:49 06:17 RBC 2.66 L (3.80-5.40) m/uL Hgb 8.5 L (11.4-16.0) gm/dL Hct 25.7 L (34.0-46.0) % RDW 17.4 H (11.5-15.5) % POC Glucose (mg/dL) 172 H 153 H (70-110) mg/dL
[2023-11-28 11:56] LABS: Glucose,Whole Blood 199 mg/dL (70-110)
--- NOTE | 2023-11-28 12:54 | P.PN ---
Subjective Progress Note Date: 11/28/23 This is a 88-year-old female admitted with acute symptomatic blood loss anemia accompanied by black stools and generalized weakness,paroxysmal atrial fib.-on Eliquis at home, Moderate aortic stenosis, elevated troponins-type II NM as per cardiology, acute renal failure and multiple other medical issues. Echo reported moderate aortic stenosis ,decreased EF to 30 to 35% from prior 55-60%. Hemoglobin 5.1 on admission, received a total of 3 units of packed RBCs to date. Anticoagulation remains on hold. Hemoglobin currently stable at 9.2. evaluated by general surgery and patient is scheduled for EGD today. 2 L of nasal cannula O2, weaned off and maintaining O2 sats in the low 90s on room air. N.p.o. denies abdominal pain. Denies nausea or vomiting. Objective - Vital Signs Vital signs: Vital Signs Temp 97.9 F 11/28/23 08:00 Pulse 68 11/28/23 12:25 Resp 16 11/28/23 11:57 BP 128/74 11/28/23 11:57 Pulse Ox 94 L 11/28/23 11:57 FiO2 Intake & Output 11/27/23 11/28/23 11/28/23 18:59 06:59 18:59 Intake Total 600 130 Output Total 300 300 200 Balance 300 -170 -200 Intake: IV 10 Invasive Line 3 10 Oral 600 120 Output: Urine 300 300 200 Other: Voiding Method Toilet Bedside Commode Bedside Commode # Voids 1 # Bowel Movements 1 - Exam GENERAL: Sitting up in bed, alert and oriented x3, NAD. HEENT: Normocephalic, atraumatic , PERRLA, No conjunctival pallor. CARDIOVASCULAR: S1 and S2 present. Systolic murmur audible aortic area, no rubs, or gallops. PULMONARY: Chest is clear to auscultation, no wheezing or crackles. ABDOMEN: Soft, nontender, nondistended, normoactive bowel sounds. No palpable o rganomegaly. EXTREMITIES: No cyanosis, clubbing, or pedal edema. NEUROLOGICAL: Gross neurological examination did not reveal any focal deficits. SKIN: No rashes. - Labs CBC & Chem 7: 11/28/23 06:17 11/27/23 07:10 Labs: Abnormal Lab Results - Last 24 Hours (Table) 11/27/23 11/27/2311/28/24 Range/Units 16:21 20:11 05:49 RBC (3.80-5.40) m/uL Hgb (11.4-16.0) gm/dL Hct (34.0-46.0) % RDW (11.5-15.5) % POC Glucose (mg/dL) 178 H 172 H 153 H (70-110) mg/dL 11/28/23 11/28/23 Range/Units 06:17 11:54 RBC 2.66 L (3.80-5.40) m/uL Hgb 8.5 L (11.4-16.0) gm/dL Hct 25.7 L (34.0-46.0) % RDW 17.4 H (11.5-15.5) % POC Glucose (mg/dL) 199 H (70-110) mg/dL Assessment and Plan Assessment: GI bleed Acute symptomatic blood loss anemia Elevated troponins, Hyperkalemia Acute kidney injury Paroxysmal atrial fibrillation, anticoagulated with Eliquis outpatient, currently on hold. Congestive heart failure, systolic dysfunction .previously with preserved EF, current echo reporting EF 30 to 35% with moderate aortic stenosis, new onset cardiomyopathy-type unknown, further workup outpatient. Hypertension Hyperlipidemia Diabetes Peripheral arterial disease Plan: Continue on current medication regimen, urging and symptomatic treatment.PPI, anticoagulation currently on hold. EGD scheduled for today. The impression and plan of care has been dictated as directed. : I performed a history and examination of this patient, discussed the same with the dictator. I agree with the dictator's note ,documented as a scribe. Any additional findings or plans will be noted.
--- NOTE | 2023-11-28 13:09 | CDI ---
Documentation Clarification Form Date: From: Minda Gant Phone: [phone] Admit Date: 11/25/2023 09:09:00 PM Patient Name: Jelly Cedillo I Visit Number: [id number] Discharge Date: ATTENTION: The Clinical Documentation Specialists (CDI) and [facility] Coding Staff appreciate your assistance in clarifying documentation. Please respond to the clarification below the line at the bottom and electronically sign. The CDI & [facility] Coding staff will review the response and follow-up if needed. Please note: Queries are made part of the Legal Health Record. If you have any questions, please contact the author of this message via ITS. Dr. Manpreet Macias There is documentation of "GI bleed" in the H&P on 11/26. Based on this information and the findings below, is there an additional diagnosis that is clinically appropriate for this patient? History/Risk Factors: "88-year-old lady with past medical history significant for atrial fibrillation on Eliquis, hypertension, hyperlipidemia, dementia who presented to the hospital for black tarry stools." - Per H&P on 11/26 Clinical Indicators: "black tarry stools" - Per H&P on 11/26 Hemoglobin: 11/25 - 5.1, 11/26 - 6.3, 11/26 - 9.7, 11/27 - 9.2, 11/28 - 8.5 Treatment: Per H&P on 11/26 "Patient received Kcentra in the ER for reversal of Eliquis. Patient received 1 unit packed red blood cell in the ER, will give 2 more units of packed red blood cells. Continue IV Protonix" Is there an additional diagnosis that is clinically appropriate for this patient? [x ] Hemorrhage due to Eliquis [ ] Other, please specify [ ] Unable to determine MTDD
--- NOTE | 2023-11-28 14:48 | P.PN ---
Subjective Progress Note Date: 11/28/23 HISTORY OF PRESENT ILLNESS: This is a 88-year-old female with a past medical history significant for pa roxysmal atrial fibrillation, aortic stenosis, congestive heart failure, hypertension, hyperlipidemia, diabetes, and peripheral arterial disease. Patient follows in the office with Dr. Grande. We have been asked to see the patient in consultation for elevated troponins. Patient examined at the bedside. Patient initially presented to the hospital with a chief complaint of fatigue and generally feeling unwell. The patient was found to be anemic with a hemoglobin of 5.1. She did receive RBC transfusion. Repeat hemoglobin is 6.3. She denies any chest pain or pressure. Blood pressure stable with a recent reading of 103/56. DIAGNOSTICS: - EKG reveals sinus mechanism with ST depression in lead I and V4V6 with T wave inversions in aVL - Laboratory data: Hemoglobin 5.1. Repeat 6.3. Sodium 135. Potassium 5.4. BUN 79. Creatinine 1.63. Troponin 0.193. - Current home cardiac medications include lovastatin 20 mg at night, hydralazine 25 mg 4 times a day, losartan 25 mg daily, Eliquis 2.5 mg twice a day, amiodarone 200 mg daily, Lasix 20 mg daily - Most recent echocardiogram obtained in July 2021 revealed ejection fraction 55 to 60%, mild aortic stenosis, mild mitral regurgitation, and mild to moderate tricuspid regurgitation with severe pulmonary hypertension November 27, 2023 Patient examined this morning. Patient denies chest pain or pressure. She denies shortness of breath. Hemoglobin this morning is 9.2. General surgery is following for possible endoscopy. Patient anticoagulation remains on hold. Echocardiogram completed revealed ejection fraction 30 to 35% with moderate aortic stenosis. 11/28 Patient states she has a little shortness of breath unchanged. No BM today. She states her stools have been black. Anticogulants are on hold. He is scheduled for endoscopy with Dr. Ragsdale today. Eliquis is on hold. Telemetry is a sinus rhythm. Blood pressure 120/74, heart rate in the 60s. PHYSICAL EXAM: VITAL SIGNS: Reviewed. GENERAL: Well-developed in no acute distress. HEENT: Head is normocephalic. Pupils are equal, round. Sclerae anicteric. Mucous membranes of the mouth are moist. Neck supple. No JVD or thyromegaly LUNGS: Respirations even and unlabored. Lungs essentially clear to auscultation bilaterally. HEART: Regular rate and rhythm. S1 and S2 heard. Systolic murmur noted ABDOMEN: Soft. Nondistended. Nontender. EXTREMITIES: Normal range of motion. No clubbing or cyanosis. Peripheral pulses intact. No lower extremity edema NEUROLOGIC: Awake and alert. Oriented x 3. ASSESSMENT: Generalized weakness Acute anemia Elevated troponin, secondary to above, no evidence of acute coronary syndrome, type II CO Paroxysmal atrial fibrillation, anticoagulated with Eliquis on an outpatient basis Congestive heart failure with preserved EF, currently euvolemic Moderate aortic stenosis Hypertension Hyperlipidemia Diabetes History of peripheral arterial disease New onset cardiomyopathy, ischemic versus nonischemic Acute kidney injury PLAN: Hold anticoagulation due to acute anemia General surgery has been consulted for EGD today Increase atorvastatin to 40 mg at night. Obtain lipid panel Continue metoprolol 25 mg twice a day No ANDI/ARB at this time secondary to acute kidney injury Further evaluation of new cardiomyopathy to be completed on an outpatient basis secondary to patient's acute issues Further recommendations pending patient course Nurse practitioner note has been reviewed by physician. Signing provider agrees with the documented findings, assessment, and plan of care documented by SPECIAL EDUCATION TEACHING ASSISTANT as a scribe. Objective - Vital Signs Vital signs: Vital Signs Temp 97.9 F 11/28/23 08:00 Pulse 68 11/28/23 12:25 Resp 16 11/28/23 11:57 BP 128/74 11/28/23 11:57 Pulse Ox 94 L 11/28/23 11:57 FiO2 Intake & Output 11/27/23 11/28/23 11/28/23 18:59 06:59 18:59 Intake Total 600 130 Output Total 300 300 200 Balance 300 -170 -200 Intake: IV 10 Invasive Line 3 10 Oral 600 120 Output: Urine 300 300 200 Other: Voiding Method Toilet Bedside Commode Bedside Commode # Voids 1 # Bowel Movements 1 - Labs CBC & Chem 7: 11/28/23 06:17 11/27/23 07:10 Labs: Abnormal Lab Results - Last 24 Hours (Table) 11/27/23 11/27/23 11/28/23 Range/Units 16:21 20:11 05:49 RBC (3.80-5.40) m/uL Hgb (11.4-16.0) gm/dL Hct (34.0-46.0) % RDW (11.5-15.5) % POC Glucose (mg/dL) 178 H 172 H 153 H (70-110) mg/dL 11/28/23 11/28/23 Range/Units 06:17 11:54 RBC 2.66 L (3.80-5.40) m/uL Hgb 8.5 L (11.4-16.0) gm/dL Hct 25.7 L (34.0-46.0) % RDW 17.4 H (11.5-15.5) % POC Glucose (mg/dL) 199 H (70-110) mg/dL
[2023-11-28] MEDS ORDERED: PROPOFOL 10 MG/ML 20 ML VIAL IV ONE (14:51)
[2023-11-28] MEDS ORDERED: LIDOCAINE 1% INJ 10MG/ML (20 ML MDV) ONE (14:51)
[2023-11-28] MEDS: LACTATED RINGERS 1,000 ML IV ONE ×2 (14:52→15:03)
--- NOTE | 2023-11-28 15:07 | P.OP ---
Date of Procedure: 11/28/23 Preoperative Diagnosis: GI bleed, anemia Postoperative Diagnosis: Antral gastritis Moderate size hiatal hernia Esophagitis No sign of active bleeding Procedure(s) Performed: EGD Anesthesia: MAC Surgeon: Segundo Redman Pathology: other (Esophagus) Condition: stable Disposition: PACU Description of Procedure: The patient was placed on the endoscopy table in the lateral position. She received IV sedation. The gas was placed oropharynx passed in the esophagus into the stomach. Scope was placed through the pylorus. The first and second portion appeared normal. The scope was then brought back to the antrum this was mildly inflamed. A biopsy was performed. The scope was then retroflexed and th e major of the stomach appeared normal. There was a moderate-sized hiatal hernia. The GE junction was at 39 cm. The distal esophagus appeared inflamed. A biopsy was performed. The proximal esophagus appeared normal. The scope was withdrawn for the patient.
[2023-11-28 16:20] LABS: Glucose,Whole Blood 204 mg/dL (70-110)
[2023-11-28 20:10] LABS: Glucose,Whole Blood 182 mg/dL (70-110)
[2023-11-29 06:02] LABS: Glucose,Whole Blood 176 mg/dL (70-110)
[2023-11-29 09:18] VITALS: RESP 18
[2023-11-29 09:27] LABS: Anisocytosis Slight; HCT 28.3 % (34.0-46.0); HGB 9.3 gm/dL (11.4-16.0); Hypochromasia Moderate; MCH 31.8 pg (25.0-35.0); MCHC 32.9 g/dL (31.0-37.0); MCV 96.6 fL (80.0-100.0); Macrocytosis Slight; Mean Platelet Volume 9.3; Platelet Count 224 k/uL (150-450); Poikilocytosis Slight; RBC 2.93 m/uL (3.80-5.40); RDW 17.3 % (11.5-15.5); WBC 10.3 k/uL (3.8-10.6)
[2023-11-29 11:25] LABS: Glucose,Whole Blood 182 mg/dL (70-110)
[2023-11-29 11:42] VITALS: BP 99/53; PULSE 59; TEMP 97.3
[2023-11-29 12:33] LABS: African American GFR (CKD) 29 (>60 ml/min/1.73 sqM); Anion Gap 7 mmol/L; Blood Urea Nitrogen 53 mg/dL (7-17); Calcium 8.1 mg/dL (8.4-10.2); Carbon Dioxide 21 mmol/L (22-30); Chloride 107 mmol/L (98-107); Glucose 197 mg/dL (74-99); Non-African American GFR(CKD) 25 (>60 ml/min/1.73 sqM); Potassium 4.1 mmol/L (3.5-5.1); Sodium 135 mmol/L (137-145)
--- NOTE | 2023-11-29 12:48 | P.PN ---
Subjective Progress Note Date: 11/29/23 CHIEF COMPLAINT: Anemia HISTORY OF PRESENT ILLNESS: Patient admitted to the hospital with weakness, anemia and black stools. Patient on Eliquis at home. Patient status post EGD revealing antral gastritis, moderate-sized hiatal hernia and esophagitis. No sign of active bleeding. Hemoglobin has increased from 8.5-9.3. Patient denies any abdominal pain she tolerated diet. She did have a bowel movement. No black stools per nursing staff. PHYSICAL EXAM: VITAL SIGNS: Reviewed. GENERAL: Well-developed in no acute distress. ABDOMEN: Soft. Nondistended. Nontender. ASSESSMENT: 1. Anemia with melanotic stools status post EGD revealing antral gastritis, moderate-sized hiatal hernia and esophagitis PLAN: -Continue PPI -Continue consistent carbohydrate diet -Patient can resume Eliquis tomorrow per surgeon -Okay to discharge from surgical standpoint Physician Hard Tile Setter note has been reviewed by physician. Signing provider agrees with the documented findings, assessment, and plan of care. Objective - Vital Signs Vital signs: Vital Signs Temp 98.1 F 11/29/23 08:49 Pulse 58 L 11/29/23 09:55 Resp 18 11/29/23 09:55 BP 92/51 11/29/23 08:49 Pulse Ox 95 11/29/23 08:49 FiO2 Intake & Output 11/28/23 11/29/23 11/29/23 18:59 06:59 18:59 Intake Total 860 10 Output Total 200 325 Balance 660 -315 Intake: IV 200 10 Invasive Line 3 10 Oral 660 Output: Urine 200 325 Other: Voiding Method Bedside Commode Bedside Commode Toilet # Voids 2 1 # Bowel Movements 1 - Labs CBC & Chem 7: 11/29/23 09:09 11/29/23 12:06 Labs: Abnormal Lab Results - Last 24 Hours (Table) 11/28/23 11/28/23 11/28/23 Range/Units 11:54 16:18 19:53 RBC (3.80-5.40) m/uL Hgb (11.4-16.0) gm/dL Hct (34.0-46.0) % RDW (11.5-15.5) % POC Glucose (mg/dL) 199 H 204 H 182 H (70-110) mg/dL 11/29/23 11/29/23 Range/Units 05:55 09:09 RBC 2.93 L (3.80-5.40) m/uL Hgb 9.3 L (11.4-16.0) gm/dL Hct 28.3 L (34.0-46.0) % RDW 17.3 H (11.5-15.5) % POC Glucose (mg/dL) 176 H (70-110) mg/dL
--- NOTE | 2023-11-29 16:31 | P.PN ---
Subjective Progress Note Date: 11/29/23 HISTORY OF PRESENT ILLNESS: This is a 88-year-old female with a past medical history significant for pa roxysmal atrial fibrillation, aortic stenosis, congestive heart failure, hypertension, hyperlipidemia, diabetes, and peripheral arterial disease. Patient follows in the office with Dr. Grande. We have been asked to see the patient in consultation for elevated troponins. Patient examined at the bedside. Patient initially presented to the hospital with a chief complaint of fatigue and generally feeling unwell. The patient was found to be anemic with a hemoglobin of 5.1. She did receive RBC transfusion. Repeat hemoglobin is 6.3. She denies any chest pain or pressure. Blood pressure stable with a recent reading of 103/56. DIAGNOSTICS: - EKG reveals sinus mechanism with ST depression in lead I and V4V6 with T wave inversions in aVL - Laboratory data: Hemoglobin 5.1. Repeat 6.3. Sodium 135. Potassium 5.4. BUN 79. Creatinine 1.63. Troponin 0.193. - Current home cardiac medications include lovastatin 20 mg at night, hydralazine 25 mg 4 times a day, losartan 25 mg daily, Eliquis 2.5 mg twice a day, amiodarone 200 mg daily, Lasix 20 mg daily - Most recent echocardiogram obtained in July 2021 revealed ejection fraction 55 to 60%, mild aortic stenosis, mild mitral regurgitation, and mild to moderate tricuspid regurgitation with severe pulmonary hypertension November 27, 2023 Patient examined this morning. Patient denies chest pain or pressure. She denies shortness of breath. Hemoglobin this morning is 9.2. General surgery is following for possible endoscopy. Patient anticoagulation remains on hold. Echocardiogram completed revealed ejection fraction 30 to 35% with moderate aortic stenosis. 11/28 Patient states she has a little shortness of breath unchanged. No BM today. She states her stools have been black. Anticogulants are on hold. He is scheduled for endoscopy with Dr. Ragsdale today. Eliquis is on hold. Telemetry is a sinus rhythm. Blood pressure 120/74, heart rate in the 60s. 11/29 Patient's hydralazine and Lopressor have been on hold due to hypotension. She is currently in a sinus rhythm. Blood pressure 99/53, heart rate in the 50s. She did undergo EGD which revealed antral gastritis moderate size hiatal hernia and esophagitis. General surgery has recommended Eliquis can be resumed tomorrow. Repeat blood work reveals hemoglobin of 9.3. Sodium 135, BUN 53 creatinine 1.76. Patient states that she has been discharged home today. PHYSICAL EXAM: VITAL SIGNS: Reviewed. GENERAL: Well-developed in no acute distress. HEENT: Head is normocephalic. Pupils are equal, round. Sclerae anicteric. Mucous membranes of the mouth are moist. Neck supple. No JVD or thyromegaly LUNGS: Respirations even and unlabored. Lungs essentially clear to auscultation bilaterally. HEART: Regular rate and rhythm. S1 and S2 heard. Systolic murmur noted ABDOMEN: Soft. Nondistended. Nontender. EXTREMITIES: Normal range of motion. No clubbing or cyanosis. Peripheral pulses intact. No lower extremity edema NEUROLOGIC: Awake and alert. Oriented x 3. ASSESSMENT: Generalized weakness Acute anemia Elevated troponin, secondary to above, no evidence of acute coronary syndrome, type II [place] Paroxysmal atrial fibrillation, anticoagulated with Eliquis on an outpatient basis Congestive heart failure with preserved EF, currently euvolemic Moderate aortic stenosis Hypertension Hyperlipidemia Diabetes History of peripheral arterial disease New onset cardiomyopathy, ischemic versus nonischemic Acute kidney injury PLAN: Resume eliquis per recommendations of general surgery Continue current cardiac medications Hold hydralazine and Lopressor on discharge No ANDI/ARB at this time secondary to acute kidney injury Further evaluation of new cardiomyopathy to be completed on an outpatient basis secondary to patient's acute issues Nurse practitioner note has been reviewed by physician. Signing provider agrees with the documented findings, assessment, and plan of care documented by [employer]OCIATE [employer]CHANDISER as a scribe. Objective - Vital Signs Vital signs: Vital Signs Temp 97.3 F L 11/29/23 11:16 Pulse 59 L 11/29/23 11:16 Resp 18 11/29/23 13:18 BP 99/53 11/29/23 11:16 Pulse Ox 94 L 11/29/23 11:16 FiO2 Intake & Output 11/28/23 11/29/23 11/29/23 18:59 06:59 18:59 Intake Total 860 10 420 Output Total 200 325 Balance 660 -315 420 Intake: IV 200 10 Invasive Line 3 10 Oral 660 420 Output: Urine 200 325 Other: Voiding Method Bedside Commode Bedside Commode Toilet # Voids 2 1 2 # Bowel Movements 2 - Labs CBC & Chem 7: 11/29/23 09:09 11/29/23 12:06 Labs: Abnormal Lab Results - Last 24 Hours (Table) 11/28/23 11/28/23 11/29/23 Range/Units 16:18 19:53 05:55 RBC (3.80-5.40) m/uL Hgb (11.4-16.0) gm/dL Hct (34.0-46.0) % RDW (11.5-15.5) % Sodium (137-145) mmol/L Carbon Dioxide (22-30) mmol/L BUN (7-17) mg/dL Creatinine (0.52-1.04) mg/dL Glucose (74-99) mg/dL POC Glucose (mg/dL) 204 H 182 H 176 H (70-110) mg/dL Calcium (8.4-10.2) mg/dL 11/29/23 11/29/23 11/29/23 Range/Units 09:09 11:23 12:06 RBC 2.93 L (3.80-5.40) m/uL Hgb 9.3 L (11.4-16.0) gm/dL Hct 28.3 L (34.0-46.0) % RDW 17.3 H (11.5-15.5) % Sodium 135 L (137-145) mmol/L Carbon Dioxide 21 L (22-30) mmol/L BUN 53 H (7-17) mg/dL Creatinine 1.76 H (0.52-1.04) mg/dL Glucose 197 H (74-99) mg/dL POC Glucose (mg/dL) 182 H (70-110) mg/dL Calcium 8.1 L (8.4-10.2) mg/dL
--- NOTE | 2023-12-01 12:56 | P.DS ---
Providers Date of admission: 11/25/23 21:09 Expected date of discharge: 11/29/23 Attending physician: Ja Stevenson Consults: 11/25/23 21:09 Consult Physician Routine Consulting Provider: Segundo Redman Consult Reason/Comments: gib Do you want consulting provider notified?: Yes 11/26/23 09:57 Consult Physician Routine Consulting Provider: Bronson Hernández Consult Reason/Comments: elevated troponin Do you want consulting provider notified?: Yes Primary care physician: Ja Stevenson Hospital Course: Final Diagnoses: Acute symptomatic blood loss anemia. EGD completed reporting antral gastritis, moderate size hiatal hernia and esophagitis. Elevated troponins, no evidence of acute coronary syndrome, type II [place] as per cardiology Hyperkalemia, resolved Acute kidney injury Paroxysmal atrial fibrillation, anticoagulated with Eliquis outpatient, currently on hold. Congestive heart failure, systolic dysfunction .previously with preserved EF, current echo reporting EF 30 to 35% with moderate aortic stenosis, new onset cardiomyopathy-type unknown, further workup outpatient. Hypertension Hyperlipidemia Diabetes Peripheral arterial disease Hospital course:This is a 88-year-old female admitted with acute symptomatic blood loss anemia accompanied by black stools and generalized weakness,paroxysmal atrial fib.-on Eliquis at home, Moderate aortic stenosis, elevated troponins-type II [place] as per cardiology, acute renal failure and multiple other medical issues. Echo reported moderate aortic stenosis ,decreased EF to 30 to 35% from prior 55-60%. Hemoglobin 5.1 on admission, received a total of 3 units of packed RBCs to date. Anticoagulation remains on hold. Hemoglobin currently stable at 9.2. evaluated by general surgery and patient is scheduled for EGD today. 2 L of nasal cannula O2, weaned off and maintaining O2 sats in the low 90s on room air. N.p.o. denies abdominal pain. Denies nausea or vomiting. Maintained on PPI, anticoagulation held. EGD completed reporting antral gastritis, moderate size hiatal hernia and esophagitis. Positive bowel movement this morning. hemoglobin currently 9.3, sodium 135, BUN 53, creatinine 1.76 .General surgery has recommended Eliquis can be resumed tomorrow. ANDI and ARB remain on hold related to acute renal failure.Continue holding hydralazine and Lopressor on discharge as per cardiology. Further workup outpatient regarding new cardiomyopathy. Denies chest pain, palpitations or shortness of breath.significant clinical improvement. Cleared for discharge by both general surgery and cardiology. Patient will be discharged home today in a stable condition with guarded prognosis. Close monitoring of hemoglobin outpatient. The impression and plan of care has been dictated as directed. : I performed a history and examination of this patient, discussed the same with the dictator. I agree with the dictator's note ,documented as a scribe. Any additional findings or plans will be noted. Patient Condition at Discharge: Stable Plan - Discharge Summary Discharge Rx Participant: No New Discharge Prescriptions: New Pantoprazole Sodium [Protonix] 40 mg PO DAILY #30 tab Continue Apixaban [Eliquis] 2.5 mg PO BID #60 tab Memantine [Namenda] 10 mg PO BID Lovastatin [Mevacor] 20 mg PO HS Ferrous Sulfate [Iron (65 MG Elemental)] 325 mg PO DAILY Donepezil [Aricept] 5 mg PO DAILY Meclizine [Antivert] 25 mg PO Q8H PRN PRN Reason: Vertigo glipiZIDE [Glucotrol] 10 mg PO BID Amiodarone [Cordarone] 200 mg PO DAILY Furosemide [Lasix] 20 mg PO DAILY Discontinued Losartan [Cozaar] 25 mg PO DAILY hydrALAZINE HCL [Apresoline] 25 mg PO QID Discharge Medication List Lovastatin [Mevacor] 20 mg PO HS 05/01/21 [History] Memantine [Namenda] 10 mg PO BID 05/01/21 [History] Donepezil [Aricept] 5 mg PO DAILY 10/05/22 [History] Ferrous Sulfate [Iron (65 MG Elemental)] 325 mg PO DAILY 10/05/22 [History] Meclizine [Antivert] 25 mg PO Q8H PRN 10/17/22 [History] Amiodarone [Cordarone] 200 mg PO DAILY 11/25/23 [History] Furosemide [Lasix] 20 mg PO DAILY 11/25/23 [History] glipiZIDE [Glucotrol] 10 mg PO BID 11/25/23 [History] Apixaban [Eliquis] 2.5 mg PO BID #60 tab 11/29/23 [Rx] Pantoprazole Sodium [Protonix] 40 mg PO DAILY #30 tab 11/29/23 [Rx] Follow up Appointment(s)/Referral(s): Pilo Grande MD [STAFF PHYSICIAN] - 2 Weeks (Call and make lexii. ) Ja Stevenson DO [Primary Care Provider] - 3 Days (Call and make lexii) Ambulatory/Diagnostic Orders: Complete Blood Count w/diff [LAB.AMB] Time Frame: 3 Days, Location: None Selected Patient Instructions/Handouts: Gastrointestinal Bleeding (DC), Anemia (DC) Activity/Diet/Wound Care/Special Instructions: Resume Eliquis 11/30/23 as per general surgery Discharge Disposition: HOME SELF-CARE
== END 2023-11-29 16:31 | disposition home or self-care (01) | DRG 377 ==
LOC: EC 18:21 → 3SCARD 21:09
PROVIDERS: ADMIT Family Medicine; ATTEND Family Medicine
PROC: 30283B1 Transfusion of Nonautologous 4-Factor Prothrombin Complex Concentrate into Vein, Percutaneous Approach (ICD-10-PCS; 2023-11-25)
PROC: 30233N1 Transfusion of Nonautologous Red Blood Cells into Peripheral Vein, Percutaneous Approach (ICD-10-PCS; 2023-11-25)
PROC: 0DB78ZX Excision of Stomach, Pylorus, Via Natural or Artificial Opening Endoscopic, Diagnostic (ICD-10-PCS; 2023-11-28)
PROC: 0DB38ZX Excision of Lower Esophagus, Via Natural or Artificial Opening Endoscopic, Diagnostic (ICD-10-PCS; principal; 2023-11-28 08:05)
DX: K29.51 Unspecified chronic gastritis with bleeding (principal); I21.A1 Myocardial infarction type 2; D68.32 Hemorrhagic disorder due to extrinsic circulating anticoagulants; N17.9 Acute kidney failure, unspecified; I42.9 Cardiomyopathy, unspecified; D62 Acute posthemorrhagic anemia; I50.42 Chronic combined systolic (congestive) and diastolic (congestive) heart failure; K20.91 Esophagitis, unspecified with bleeding; F03.90 Unspecified dementia, unspecified severity, without behavioral disturbance, psychotic disturbance, mood disturbance, and anxiety; E11.51 Type 2 diabetes mellitus with diabetic peripheral angiopathy without gangrene; I11.0 Hypertensive heart disease with heart failure; I48.0 Paroxysmal atrial fibrillation; I35.0 Nonrheumatic aortic (valve) stenosis; E86.0 Dehydration; Z66 Do not resuscitate; T45.515A Adverse effect of anticoagulants, initial encounter; K44.9 Diaphragmatic hernia without obstruction or gangrene; E78.5 Hyperlipidemia, unspecified; E87.5 Hyperkalemia; R60.0 Localized edema; Z87.891 Personal history of nicotine dependence; Z79.84 Long term (current) use of oral hypoglycemic drugs; Z79.01 Long term (current) use of anticoagulants; Z86.11 Personal history of tuberculosis; Z90.2 Acquired absence of lung [part of]; Z87.19 Personal history of other diseases of the digestive system; Z82.49 Family history of ischemic heart disease and other diseases of the circulatory system; Z79.899 Other long term (current) drug therapy; Z86.19 Personal history of other infectious and parasitic diseases; Z88.2 Allergy status to sulfonamides
CPT/HCPCS: 36415; 36430; 43239; 80048; 80053; 80061; 82728; 82747; 83540; 83550; 83735; 84100; 84484; 85025; 85027; 85610; 85730; 86850; 86900; 86901; 86920; 88305; 93306; 94640; 94760; 96361; 96365; 96375; 99291